=== PATIENT | male | born 1985 | race Caucasian/White ===

== ENCOUNTER 2020-01-17 21:55 | Inpatient (IN) | payer MEDICAID, SELFPAY ==
[~2020-01-17] VITALS: Ht 157.5 cm; Wt 55.8 kg
[2020-01-17] MEDS ORDERED: ACETAMINOPHEN 325 MG TAB PO ONE (22:45)
[2020-01-17] MEDS ORDERED: NS 1,770 ML in IV 1 EA IV ONE (22:45)
[2020-01-18 00:22] LABS: APPEARANCE, URINE CLEAR (CLEAR); BACTERIA, URINE AUTO NEGATIVE (NEGATIVE); BILIRUBIN, URINE AUTO NEGATIVE (NEGATIVE); BLOOD, URINE BLOOD 1+ (NEGATIVE); COLOR, URINE YELLOW (YELLOW); GLUCOSE, URINE (UA) AUTO NEGATIVE (NEGATIVE); KETONE, URINE AUTO NEGATIVE (NEGATIVE); LEUKOCYTE ESTERASE, URINE AUTO NEGATIVE (NEGATIVE); MUCUS, URINE SMALL (NEGATIVE); NITRITE, URINE AUTO NEGATIVE (NEGATIVE); PROTEIN, URINE AUTO NEGATIVE (NEGATIVE); RBC, URINE AUTO 1 /HPF (0-3); SPECIFIC GRAVITY URINE AUTO 1.013 (1.002-1.035); SQUAMOUS EPITHELIAL CELL UR AU 0 /HPF (0-6); WBC, URINE AUTO 2 /HPF (0-3)
[2020-01-18 00:25] LABS: BASO % 0.1 % (0.0-1.0); HEMATOCRIT 23.6 % (42.0-52.0); HEMOGLOBIN 7.8 g/dl (13.5-17.5); LYMPH # 1.3 10^3/uL (1.5-5.0); LYMPH % 5.5 % (24.0-44.0); MEAN CORPUSCULAR HEMOGLOBIN 24.8 pg (27.0-33.0); MEAN CORPUSCULAR HGB CONC 33.1 g/dl (32.0-36.5); MEAN CORPUSCULAR VOLUME 75.2 fl (80.0-96.0); MONO # 1.6 10^3/uL (0.0-0.8); MONO % 7.1 % (0.0-5.0); NEUTROPHILS # 19.7 10^3/uL (1.5-8.5); NEUTROPHILS % 85.9 % (36.0-66.0); PLATELET COUNT, AUTOMATED 294 10^3/uL (150-450); RED BLOOD COUNT 3.14 10^6/uL (4.30-6.10)
[2020-01-18 00:41] LABS: AMPHETAMINES LEVEL URINE NEGATIVE (NEGATIVE); BARBITURATES URINE NEGATIVE (NEGATIVE); BENZODIAZEPINES URINE NEGATIVE (NEGATIVE); CANNABINOIDS URINE NEGATIVE (NEGATIVE); COCAINE METABOLITE URINE NEGATIVE (NEGATIVE); METHADONE URINE NEGATIVE (NEGATIVE); OPIATES URINE POSITIVE (NEGATIVE); PHENCYCLIDINE URINE NEGATIVE (NEGATIVE)
[2020-01-18 00:48] LABS: ALBUMIN 2.4 GM/DL (3.2-5.2); ALT/SGPT 25 U/L (12-78); BILIRUBIN,DIRECT 0.1 MG/DL (0.0-0.2); BILIRUBIN,TOTAL 0.3 MG/DL (0.2-1.0); BLOOD UREA NITROGEN 16 MG/DL (7-18); CARBON DIOXIDE LEVEL 23 MEQ/L (21-32); CHLORIDE LEVEL 100 MEQ/L (98-107); CK-MB VALUE MASS < 1.0 NG/ML (<3.6); CPK CREATINE PHOSPHOKINASE 21 U/L (39-308); GLOMERULAR FILTRATION RATE > 60.0 (>60); GLUCOSE, FASTING 93 MG/DL (70-100); MB/CK RELATIVE INDEX 4.76 (< OR =4); POTASSIUM SERUM 4.2 MEQ/L (3.5-5.1); SODIUM LEVEL 131 MEQ/L (136-145); TOTAL PROTEIN 6.1 GM/DL (6.4-8.2); TROPONIN I < 0.02 NG/ML (< 0.10)
--- NOTE | 2020-01-18 00:53 | REPVR ---
PROCEDURE INFORMATION: Exam: CT Head Without Contrast Exam date and time: 01/18/2020 12:08 AM Age: 34 years old Clinical indication: Altered mental status/memory loss; Confusion or disorientation; Additional info: Altered mental status, febrile TECHNIQUE: Imaging protocol: Computed tomography of the head without contrast. Radiation optimization: All CT scans at this facility use at least one of these dose optimization techniques: automated exposure control; mA and/or kV adjustment per patient size (includes targeted exams where dose is matched to clinical indication); or iterative reconstruction. COMPARISON: No relevant prior studies available. FINDINGS: Brain: Normal. No hemorrhage. Unremarkable white matter. No mass effect. Cerebral ventricles: No ventriculomegaly. Bones/joints: Unremarkable. No acute fracture. Paranasal sinuses: Visualized sinuses are unremarkable. No fluid levels. Mastoid air cells: Visualized mastoid air cells are well aerated. Soft tissues: Unremarkable. IMPRESSION: No acute intracranial abnormality. Electronically signed by: Deng Judd On 01/18/2020 00:53:31 AM
--- NOTE | 2020-01-18 00:54 | REPVR ---
PROCEDURE INFORMATION: Exam: CT Cervical Spine Without Contrast Exam date and time: 01/18/2020 12:10 AM Age: 34 years old Clinical indication: Neck pain; Prior surgery; Surgery date: 6+ months; Surgery type: PT states infection; Additional info: Vertebral tenderness, no injury TECHNIQUE: Imaging protocol: Computed tomography images of the cervical spine without contrast. Radiation optimization: All CT scans at this facility use at least one of these dose optimization techniques: automated exposure control; mA and/or kV adjustment per patient size (includes targeted exams where dose is matched to clinical indication); or iterative reconstruction. COMPARISON: No relevant prior studies available. FINDINGS: Bones/joints: Straightened cervical curvature with C2-C6 posterior laminectomies decompressing the spinal canal. Osseous fusion across the facet joints, especially the right C3-C7. Discs/Spinal canal/Neural foramina: Multilevel severe foraminal stenosis. Soft tissues: Unremarkable. Lungs: Lung apices are normal. IMPRESSION: No acute abnormality. Electronically signed by: Deng Judd On 01/18/2020 00:54:33 AM
--- NOTE | 2020-01-18 00:58 | REPVR ---
PROCEDURE INFORMATION: Exam: XR Chest, 2 Views Exam date and time: 01/18/2020 12:35 AM Age: 34 years old Clinical indication: Other: Cough, febrile TECHNIQUE: Imaging protocol: XR of the chest Views: 2 views. COMPARISON: No relevant prior studies available. FINDINGS: Lungs: Subtle left lower lung suspected infiltrate. Pleural space: Unremarkable. No pleural effusion. No pneumothorax. Heart/Mediastinum: Unremarkable. No cardiomegaly. Bones/joints: Unremarkable. IMPRESSION: Subtle left lower lung suspected infiltrate. Electronically signed by: Deng Judd On 01/18/2020 00:58:02 AM
[2020-01-18] MEDS ORDERED: ISOVUE-370 76% 100ML VIAL As Ordered ONE (01:09)
[2020-01-18] MEDS ORDERED: PIPERACILLIN/TAZOBACTAM SOD 3.375 GM in D5W MINI-BAG PLUS 50 ML IV ONE (01:15)
[2020-01-18 01:37] LABS: ERYTHROCYTE SEDIMENTATION RATE 49 mm/hr (0-15)
--- NOTE | 2020-01-18 02:06 | REPVR ---
PROCEDURE INFORMATION: Exam: CT Abdomen And Pelvis With Contrast Exam date and time: 01/18/2020 1:05 AM Age: 34 years old Clinical indication: Abdominal pain; Other: Difffuse; Additional info: Diffuse abd tenderness, febrile, low hemoglobin TECHNIQUE: Imaging protocol: Computed tomography of the abdomen and pelvis with intravenous contrast. Radiation optimization: All CT scans at this facility use at least one of these dose optimization techniques: automated exposure control; mA and/or kV adjustment per patient size (includes targeted exams where dose is matched to clinical indication); or iterative reconstruction. Contrast material: ISO; Contrast volume: 100 ml; Contrast route: INTRAVENOUS (IV); COMPARISON: No relevant prior studies available. FINDINGS: Lungs: Multifocal areas of airspace consolidation in both lower lobes. Liver: The liver is enlarged measuring approximately 21 cm cranial caudally. No liver masses are seen. Gallbladder and bile ducts: Normal. No calcified stones. No ductal dilation. Pancreas: Normal. No ductal dilation. Spleen: Spleen is mildly enlarged at 12.6 cm. Adrenal glands: Normal. No mass. Kidneys and ureters: Normal. No hydronephrosis. Stomach and bowel: Mild intraluminal fluid and mucosal enhancement are noted in the small bowel. No wall thickening or other inflammatory changes. No bowel obstruction. The stomach and colon are unremarkable. Appendix: No evidence of appendicitis. Intraperitoneal space: Unremarkable. No free air. No significant fluid collection. Vasculature: Unremarkable. No abdominal aortic aneurysm. Lymph nodes: Unremarkable. No enlarged lymph nodes. Urinary bladder: Mild urinary bladder wall thickening. No bladder masses or calculi. Reproductive: Unremarkable as visualized. Bones/joints: There are degenerative changes in the spine and pelvis. Soft tissues: Unremarkable. IMPRESSION: 1. Multifocal pneumonia with airspace consolidation in the lower lobes. 2. Urinary bladder wall thickening suggesting cystitis. 3. Mild mucosal enhancement and intraluminal fluid in the small bowel is nonspecific but may indicate a viral enteritis. No obstruction. 4. Hepatosplenomegaly. Electronically signed by: Claus Barros On 01/18/2020 02:06:22 AM
[2020-01-18] MEDS ORDERED: AZITHROMYCIN INJ 500 MG, VIAL MATE ADAPTER 1 EACH in D5W 250 ML IV ONE (02:15)
[2020-01-18 02:35] LABS: MONO REFLEX EBV COMP NEGATIVE (NEGATIVE)
[2020-01-18] MEDS ORDERED: cefTRIAXone SOD 2 GM in D5W MINI-BAG PLUS 50 ML IV ONE (03:15)
[2020-01-18] MEDS ORDERED: IPRATROPIUM 0.5MG/ALBUTEROL 2.5MG INH SOL UD 3ML (DUONEB) INH PRN (05:30)
--- NOTE | 2020-01-18 05:38 | HPEPDOC ---
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 In the station he was found to be febrile to 103 and tachycardic x-rays brought to the hospital. In the hospital patient was initially confused which improved after IV fluids. He was febrile 102.5 with tachycardia and leukocytosis 23. Patient endorses feeling lousy for the past 1-2 weeks. Says he's been feeling warm at home with fevers chills and malaise for t he past 1 week but did not seek medical attention. Endorses a cough that is not productive of sputum. Has some mild shortness of breath it's been ongoing for the past 1 week. Endorses feeling very sweaty over the past few days. In the ED patient was started on sepsis protocol and was given Zosyn initially followed by ceftriaxone and azithromycin. Initial lactate was 1.0. In the ED patient was found to have a hemoglobin of 7.8. Bedside guaiac was negative. Patient denies any bleeding in stool or urine. Denies black stools. Patient endorses remote history of positive hepatitis C that has not been treated. Tells me he uses opiates most daily 1-2 bags which she injects. Last use was today. PAST MEDICAL HISTORY: Opiate abuse Anxiety PAST SURGICAL HISTORY: Laminectomy cervical spine 2019 SOCIAL HISTORY: Denies alcohol use Denies tobacco use Denies illicit drug use other than opiate abuse using 1-2 bags of heroin which she injects daily. FAMILY HISTORY: Denies any family history ALLERGIES: Please see below. REVIEW OF SYSTEMS: Constitutional: No sweating or weight loss Eyes: No eye pain or acute blurred vision HENT: No complaints of headache or sore throat Cadiovascular: No Chest pain or palpitations Pulm: Per HPI Gastrointestinal: No N/V, no abdominal pain. Genitourinary: No dysuria or hematuria Musculoskeletal: No back pain or joint pain Skin: No rash or jaundice Neurological: Feeling weak HOME MEDICATIONS: Please see below. PHYSICAL EXAMINATION: Constitutional: Awake and alert, in mild distress. Cooperative. Diaphoretic. ENT: Sclera are clear. Mucosa is moist. Respiratory: Lungs Rales at the lung bases bilaterally. No respiratory distress. No use of accessory muscles. On room air Cardiovascular: RRR S1 and S2 are normal, no murmur Gastrointestinal: Abdomen is soft, non distended, non tender, BS present. Musculoskeletal: No edema. No joint deformities. RUE 5/5, LUE 5/5, BLE 5/5 Neurologic: No focal neurological deficit. Mental Status: A&O x3, normal affect Skin: Warm, dry LABORATORY DATA: See below. IMAGING: Imaging reviewed. See chart. MICROBIOLOGY: Please see below. ASSESSMENT/PLAN 34M hx of opitate abuse, pulled over by police but found to be altered at station fever 103 and tachycardia brought into hospital. Meets SIRS criteria. Found to have multifocal pneumonia. Started on IVFs and azithromycin and ceftriaxone. Lactate 1.0. Hemoglobin found to be decreased at 7.8. Denies active bleeding. Admitted to medical unit for further management. # Sepsis: 2/2 multifocal PNA. Meets SIRS criteria. Tachycardia, fever, elevated WBC. Lactate initially 1.0. Trend. IVFs. IV Abx started. UA ok. Fu BCx. # Multi focal pneumonia: Seen on chest CT/CXR. Febrile, leukocytosis. IVFs. Ceftx & Azithro (qtc 438). incentive spirometry. Fu BCx. FuUrine strep Ag and Legionella, Sputum culture and RVP. # Microcytic anemia: hgb 7.8 on admit. Stool occult negative in ED. Fu Ferritin, TIBC, LDH, haptoglobin, TSH, retic count, coags. # Hyponatremia: NS IVF. Monitor, trend. # Opiate abuse: SW consult. UDS positive opiate. Monitor for withdrawals. # History Hep C: Fu hep panel. HIV. # DVT prophylaxis: Lovenox A [facility] Hospitalist Vital Signs Vital Signs Date Time Temp Pulse Resp B/P (MAP) Pulse Ox O2 Delivery O2 Flow Rate FiO2 01/18/20 04:51 96.6 80 16 110/68 (82) 100 01/18/20 02:13 Room Air Laboratory Data Labs 24H Laboratory Tests 2 01/17/20 22:49: Coronavirus (COVID-19)(PCR) NEGATIVE 01/17/20 23:07: Immature Granulocyte % (Auto) 1.4, Neutrophils (%) (Auto) 85.9H, Lymphocytes (%) (Auto) 5.5L, Monocytes (%) (Auto) 7.1H, Eosinophils (%) (Auto) 0.0, Basophils (%) (Auto) 0.1, Neutrophils # (Auto) 19.7H, Lymphocytes # (Auto) 1.3L, Monocytes # (Auto) 1.6H, Eosinophils # (Auto) 0.0, Basophils # (Auto) 0.0, Nucleated Red Blood Cells % (auto) 0.0, Erythrocyte Sedimentation Rate 49H, Urine Color YELLOW, Urine Appearance CLEAR, Urine pH 5.0, Urine Specific [place] 1.013, Urine Protein NEGATIVE, Urine Glucose (Auto)(UA) NEGATIVE, Urine Ketones (Auto) NEGATIVE, Urine Blood 1+H, Urine Nitrite NEGATIVE, Urine Bilirubin NEGATIVE, Urine Urobilinogen 2.0H, Urine Leukocyte Esterase (Auto) NEGATIVE, Urine WBC (Auto) 2, Urine RBC (Auto) 1, Urine Hyaline Casts (Auto) 3, Urine Bacteria (Auto) NEGATIVE, Urine Squamous Epithelial Cells 0, Urine Mucus (Auto) SMALL, Urine Sperm (Auto) , Anion Gap 8, Glomerular Filtration Rate > 60.0, Lactic Acid Level 1.0, Calcium Level 8.0L, Total Bilirubin 0.3, Direct Bilirubin 0.1, Aspartate Amino Transf (AST/SGOT) 27, Alanine Aminotransferase (ALT/SGPT) 25, Alkaline Phosphatase 107, Total Creatine Kinase 21L, Creatine Kinase MB < 1.0, Creatine Kinase MB Relative Index 4.76H, Troponin I < 0.02, C-Reactive Protein, Quantitative 11.30H, Total Protein 6.1L, Albumin 2.4L, Albumin/Globulin Ratio 0.6, Urine Opiates Screen POSITIVEH, Urine Methadone Screen NEGATIVE, Urine Barbiturates Screen NEGATIVE, Urine Phencyclidine Screen NEGATIVE, Urine Amphetamines Screen NEGATIVE, Urine Benzodiazepines Screen NEGATIVE, Urine Cocaine Metabolite Screen NEGATIVE, Urine Cannabinoids Screen NEGATIVE, Monoscreen NEGATIVE CBC/BMP Laboratory Tests 01/17/20 23:07 Microbiology Microbiology 01/17/20 Blood Culture, Received Pending 01/17/20 Blood Culture, Received Pending Home Medications No Active Prescriptions or Reported Meds Allergies Coded Allergies: No Known Allergies (Unverified , 01/17/20) A-FIB/CHADSVASC A-FIB History Current/History of A-Fib/PAF?: No Current PO Anticoag Therapy: No YOUSEF,ANDREA Wisdom MD Jan 18, 2020 05:38
[2020-01-18 05:55] LABS: BASO % 0.2 % (0.0-1.0); EOS % 0.1 % (0.0-3.0); HEMATOCRIT 25.4 % (42.0-52.0); HEMOGLOBIN 8.1 g/dl (13.5-17.5); LYMPH # 1.5 10^3/uL (1.5-5.0); LYMPH % 7.5 % (24.0-44.0); MEAN CORPUSCULAR HEMOGLOBIN 24.3 pg (27.0-33.0); MEAN CORPUSCULAR HGB CONC 31.9 g/dl (32.0-36.5); MEAN CORPUSCULAR VOLUME 76.3 fl (80.0-96.0); MONO # 1.5 10^3/uL (0.0-0.8); MONO % 7.5 % (0.0-5.0); NEUTROPHILS # 16.4 10^3/uL (1.5-8.5); NEUTROPHILS % 83.7 % (36.0-66.0); PLATELET COUNT, AUTOMATED 280 10^3/uL (150-450); RED BLOOD COUNT 3.33 10^6/uL (4.30-6.10); WHITE BLOOD COUNT 19.6 10^3/uL (4.0-10.0)
[2020-01-18 06:06] LABS: INR 1.34; PROTHROMBIN TIME 16.9 SECONDS (12.5-14.3)
[2020-01-18 06:20] VITALS: BP 112/65
[2020-01-18 06:33] LABS: ALBUMIN 2.3 GM/DL (3.2-5.2); ALT/SGPT 19 U/L (12-78); BILIRUBIN,TOTAL 0.3 MG/DL (0.2-1.0); BLOOD UREA NITROGEN 12 MG/DL (7-18); CALCIUM LEVEL 8.1 MG/DL (8.5-10.1); CARBON DIOXIDE LEVEL 26 MEQ/L (21-32); CHLORIDE LEVEL 107 MEQ/L (98-107); CREATININE FOR GFR 0.72 MG/DL (0.70-1.30); FERRITIN 272 NG/ML (26-388); GLOMERULAR FILTRATION RATE > 60.0 (>60); GLUCOSE, FASTING 110 MG/DL (70-100); IRON (FE) 15 UG/DL (65-175); LDH LACTATE DEHYDROGENASE 215 U/L (87-241); PERCENT SATURATION 8.2 % (19.7-50.0); POTASSIUM SERUM 3.7 MEQ/L (3.5-5.1); SODIUM LEVEL 139 MEQ/L (136-145); TOTAL IRON BINDING CAPACITY 183 UG/DL (250-450); TOTAL PROTEIN 5.9 GM/DL (6.4-8.2)
[2020-01-18] MEDS: NS 1,000 ML IV SCH ×2 (06:37→17:26)
[2020-01-18] MEDS: AZITHROMYCIN INJ 500 MG, VIAL MATE ADAPTER 1 EACH in D5W 250 ML IV SCH (06:37)
[2020-01-18 07:25] LABS: HEPATITIS B SURFACE ANTIGEN NEGATIVE (NEGATIVE)
[2020-01-18 07:52] LABS: HEPATITIS B CORE ANTIBODY IGM NEGATIVE (NEGATIVE)
[2020-01-18 07:54] LABS: HIV 1&2 SCREEN CENTAUR NEGATIVE (NEGATIVE)
[2020-01-18 07:55] LABS: HEPATITIS A ANTIBODY IGM NEGATIVE (NEGATIVE)
[2020-01-18 07:58] LABS: HEPATITIS C VIRUS ABY INDEX > 11.0 INDEX (<0.8)
[2020-01-18 08:00] VITALS: BP 101/65
[2020-01-18] MEDS: ENOXAPARIN 40MG/0.4ML SYRINGE (J1650 PER 10MG) SC SCH (08:40)
[2020-01-18 12:00] VITALS: BP 111/67
--- NOTE | 2020-01-18 14:02 | ECGEPIP ---
[facility] - ED Test Date: 2020-01-18 Pat Name: SASCHA MENA Department: Room: [place] [address] Gender: Male [employer]inding Machine Feeder: PAUL : [id number] Requested By: DELBERT Daniel PA-C Order Number: [id number] Reading MD: Nichol Bagley Measurements Intervals [place] Rate: 69 P: 38 WA: 141 QRS: 49 QRSD: 91 T: 29 QT: 436 QTc: 469 Interpretive Statements SINUS RHYTHM WITH SINUS ARRHYTHMIA PROLONGED QTC NO PRIOR Electronically Signed on 01-18-2020 14:02:00 EST by Nichol Bagley
--- NOTE | 2020-01-18 14:08 | IPNPDOC ---
Text Note Date of Service The patient was seen on 01/18/20. NOTE Subjective: Patient stated that he feels better today. He denied any fever, c hills, nausea, vomiting, diarrhea or dysuria Objective: GENERAL APPEARANCE: NAD HEENT: no scleral icterus, no JVD, EOMI CARDIOVASCULAR: S1S2 LUNGS: Mild rales bilaterally, diminished lung sounds ABDOMEN: soft & not tender w palpitation MUSCULOSKELETAL: no cyanosis, no swelling INTEGUMENT: no generalized palor NEUROLOGICAL: cranial nerve function from 2-12 intact intact, follows commands, speech not dysarthric Assessment and Plan Patient 34 years old male with past medical history of IV drug abuse presented to the hospital with sepsis secondary to multifocal pneumonia versus endo carditis Sepsis Secondary to multifocal pneumonia versus possible endocarditis Blood culture 1 set: Gram-positive cocci in chains MRSA screen Continue antibiotic therapy Await Echo IV fluid Pneumonia CT chest showed multifocal infiltrates bilaterally Multifocal Incentive spirometry Sputum culture Microcytic anemia Stool focal blood negative Iron deficiency versus thalassemia Will check peripheral smear Iron is low Iron supplementation Hyponatremia Resolved Opiate abuse SW consult History Hep C Untreated We will check viral load VS,Ynes, I+O VS, Ynes, I+O Laboratory Tests 01/17/20 23:07 01/18/20 05:43 Vital Signs Date Time Temp Pulse Resp B/P (MAP) Pulse Ox O2 Delivery O2 Flow Rate FiO2 01/18/20 12:00 98.1 85 22 111/67 (82) 99 Room Air I&O- Last 24 Hours up to 6 AM 01/18/20 06:00 Intake Total 1870 ml Balance 1870 ml LUDY AMOR DO Jan 18, 2020 14:08
[2020-01-18 16:00] VITALS: BP 108/60
[2020-01-18 20:00] VITALS: BP 102/63
[2020-01-18] MEDS: IRON POLYSAC (NIFEREX) 150 MG CAP PO SCH (20:51)
[2020-01-18 21:40] VITALS: BP 108/62
[2020-01-18] MEDS: ACETAMINOPHEN TAB 650MG DOSE (2X325MG) PO PRN (21:55)
[2020-01-19] VITALS (7 sets, daily range): BP systolic 92–116; BP diastolic 54–71
[2020-01-19] MEDS ORDERED: cloNIDine 0.1 MG TAB PO ONE (01:15)
[2020-01-19] MEDS: NS 1,000 ML IV SCH ×2 (03:15→15:26)
[2020-01-19] MEDS: cefTRIAXone SOD 2 GM in D5W MINI-BAG PLUS 50 ML IV SCH (04:08)
[2020-01-19] MEDS: AZITHROMYCIN INJ 500 MG, VIAL MATE ADAPTER 1 EACH in D5W 250 ML IV SCH (05:34)
[2020-01-19] MEDS: ACETAMINOPHEN TAB 650MG DOSE (2X325MG) PO PRN ×2 (05:54→20:50)
[2020-01-19] MEDS: IRON POLYSAC (NIFEREX) 150 MG CAP PO SCH ×2 (09:07→20:47)
[2020-01-19] MEDS: ENOXAPARIN 40MG/0.4ML SYRINGE (J1650 PER 10MG) SC SCH (09:07)
[2020-01-19 11:05] LABS: BASO % 0.3 % (0.0-1.0); EOS % 0.3 % (0.0-3.0); HEMATOCRIT 26.1 % (42.0-52.0); HEMOGLOBIN 8.3 g/dl (13.5-17.5); LYMPH # 1.6 10^3/uL (1.5-5.0); LYMPH % 11.3 % (24.0-44.0); MEAN CORPUSCULAR HEMOGLOBIN 24.3 pg (27.0-33.0); MEAN CORPUSCULAR HGB CONC 31.8 g/dl (32.0-36.5); MEAN CORPUSCULAR VOLUME 76.5 fl (80.0-96.0); MONO # 1.1 10^3/uL (0.0-0.8); MONO % 8.1 % (0.0-5.0); NEUTROPHILS % 79.1 % (36.0-66.0); PLATELET COUNT, AUTOMATED 332 10^3/uL (150-450); RED BLOOD COUNT 3.41 10^6/uL (4.30-6.10); WHITE BLOOD COUNT 13.9 10^3/uL (4.0-10.0)
[2020-01-19 11:33] LABS: BLOOD UREA NITROGEN 8 MG/DL (7-18); CALCIUM LEVEL 7.9 MG/DL (8.5-10.1); CARBON DIOXIDE LEVEL 23 MEQ/L (21-32); CHLORIDE LEVEL 112 MEQ/L (98-107); CREATININE FOR GFR 0.63 MG/DL (0.70-1.30); GLOMERULAR FILTRATION RATE > 60.0 (>60); GLUCOSE, FASTING 118 MG/DL (70-100); POTASSIUM SERUM 3.5 MEQ/L (3.5-5.1); SODIUM LEVEL 141 MEQ/L (136-145)
--- NOTE | 2020-01-19 13:48 | IPNPDOC ---
Text Note Date of Service The patient was seen on 01/19/20. NOTE Subjective: Patient complains of severe back pain in the neck and thoracic area. He denied fever or chills, chest pain or palpitations Objective: GENERAL APPEARANCE: NAD HEENT: no scleral icterus, no JVD, EOMI CARDIOVASCULAR: S1S2, mild systolic regurgitation LUNGS: Mild rales bilaterally, diminished lung sounds ABDOMEN: soft & not tender w palpitation MUSCULOSKELETAL: no cyanosis, no swelling of LE, area of tenderness along with neck and thoracic area of the spine INTEGUMENT: no generalized palor NEUROLOGICAL: cranial nerve function from 2-12 intact intact, follows commands, speech not dysarthric Assessment and Plan Patient 34 years old male with past medical history of IV drug abuse presented to the hospital with sepsis secondary to endocarditis Sepsis Secondary to multifocal pneumonia versus possible endocarditis Blood culture 1 set: Gram-positive cocci in chains, second set gram-positive cocci in clusters Added vancomycin Continue ceftriaxone and azithromycin MRSA screen positive I talked to Dr. Ge, patient was found to have 2 cm vegetations on the tricuspid valve Appreciate/agree with ID consult Back pain Patient did have history of spinal neck abscess There is concern for spinal abscess Will proceed with spine MRI Pneumonia Multifocal Incentive spirometry Sputum culture Microcytic anemia Stool focal blood negative Iron deficiency versus thalassemia Await peripheral smear result Iron is low Iron supplementation Hyponatremia Resolved Opiate abuse SW consult History Hep C Untreated We will check viral load VS,Fishbone, I+O VS, Fishbone, I+O Laboratory Tests 01/19/20 10:41 Vital Signs Date Time Temp Pulse Resp B/P (MAP) Pulse Ox O2 Delivery O2 Flow Rate FiO2 01/19/20 12:00 98.0 85 17 108/65 (79) 95 Room Air I&O- Last 24 Hours up to 6 AM 01/19/20 06:00 Intake Total 4560 ml Output Total 2350 ml Balance 2210 ml LUDY AMOR DO Jan 19, 2020 13:48
[2020-01-19] MEDS: LIDOCAINE 5% (LIDODERM) PATCH TD SCH (15:26)
[2020-01-19] MEDS: VANCOMYCIN HCL 1,000 MG, VIAL MATE ADAPTER 1 EACH in D5W 250 ML IV SCH ×2 (15:26→20:47)
[2020-01-19 16:08] LABS: EBV VIRAL CAPSID AG IgG 33.3 U/mL (0.0-17.9); EBV VIRAL CAPSID AG IgM <36.0 U/mL (0.0-35.9)
[2020-01-19] MEDS: **NOTE PATIENT COMMENT** MISC XX SCH (20:51)
[2020-01-19] MEDS: IBUPROFEN 400 MG TAB PO PRN (22:03)
[2020-01-20] VITALS: BP 100/61
[2020-01-20] MEDS: NS 1,000 ML IV SCH (03:45)
[2020-01-20 04:00] VITALS: BP 98/60
[2020-01-20] MEDS: cefTRIAXone SOD 2 GM in D5W MINI-BAG PLUS 50 ML IV SCH (04:59)
[2020-01-20] MEDS: AZITHROMYCIN INJ 500 MG, VIAL MATE ADAPTER 1 EACH in D5W 250 ML IV SCH (06:00)
[2020-01-20 06:09] LABS: BASO # 0.1 10^3/uL (0.0-0.2); BASO % 0.3 % (0.0-1.0); EOS # 0.1 10^3/uL (0.0-0.5); EOS % 0.3 % (0.0-3.0); HEMATOCRIT 25.7 % (42.0-52.0); HEMOGLOBIN 7.9 g/dl (13.5-17.5); LYMPH # 1.9 10^3/uL (1.5-5.0); LYMPH % 10.2 % (24.0-44.0); MEAN CORPUSCULAR HEMOGLOBIN 23.9 pg (27.0-33.0); MEAN CORPUSCULAR HGB CONC 30.7 g/dl (32.0-36.5); MEAN CORPUSCULAR VOLUME 77.6 fl (80.0-96.0); MONO # 1.4 10^3/uL (0.0-0.8); MONO % 7.8 % (0.0-5.0); NEUTROPHILS # 14.8 10^3/uL (1.5-8.5); NEUTROPHILS % 80.7 % (36.0-66.0); PLATELET COUNT, AUTOMATED 363 10^3/uL (150-450); RED BLOOD COUNT 3.31 10^6/uL (4.30-6.10); WHITE BLOOD COUNT 18.3 10^3/uL (4.0-10.0)
[2020-01-20] MEDS: VANCOMYCIN HCL 1,000 MG, VIAL MATE ADAPTER 1 EACH in D5W 250 ML IV SCH ×3 (06:24→21:31)
[2020-01-20 08:00] VITALS: BP 110/67
[2020-01-20] MEDS: LIDOCAINE 5% (LIDODERM) PATCH TD SCH (09:41)
[2020-01-20] MEDS: ENOXAPARIN 40MG/0.4ML SYRINGE (J1650 PER 10MG) SC SCH (09:41)
[2020-01-20] MEDS: IRON POLYSAC (NIFEREX) 150 MG CAP PO SCH ×2 (09:41→21:31)
[2020-01-20] MEDS ORDERED: KETOROLAC 30 MG/ML 1ML VIAL IV ONE (10:15)
--- NOTE | 2020-01-20 12:02 | IPNPDOC ---
Text Note Date of Service The patient was seen on 01/20/20. NOTE Subjective: Patient stated that the lidocaine patch helped with pain. He denied fever or chills, chest pain or palpitations Objective: GENERAL APPEARANCE: NAD HEENT: no scleral icterus, no JVD, EOMI CARDIOVASCULAR: S1S2, mild systolic regurgitation LUNGS: Mild rales bilaterally, diminished lung sounds ABDOMEN: soft & not tender w palpitation MUSCULOSKELETAL: no cyanosis, no swelling of LE, area of tenderness along with neck and thoracic area of the spine INTEGUMENT: no generalized palor NEUROLOGICAL: cranial nerve function from 2-12 intact intact, follows commands, speech not dysarthric Assessment and Plan Patient 34 years old male with past medical history of IV drug abuse presented to the hospital with sepsis secondary to endocarditis Sepsis Most likely secondary to endocarditis Blood culture 1 set: Gram-positive cocci in chains, second set gram-positive cocci in clusters Added vancomycin MRSA screen positive I talked to Dr. Ge, patient was found to have 2 cm vegetations on the tricuspid valve Appreciate/agree with ID consult Back pain Patient did have history of spinal neck abscess There is concern for spinal abscess Will proceed with spine MRI Pneumonia CT chest showed multifocal infiltrates bilaterally Multifocal Incentive spirometry Sputum culture Continue antibiotic therapy Microcytic anemia Stool focal blood negative Iron deficiency versus thalassemia Await peripheral smear result Iron is low Iron supplementation Hyponatremia Resolved Opiate abuse SW consult History Hep C Untreated We will check viral load VS,Fishbone, I+O VS, Fishbone, I+O Laboratory Tests 01/20/20 05:43 Vital Signs Date Time Temp Pulse Resp B/P (MAP) Pulse Ox O2 Delivery O2 Flow Rate FiO2 01/20/20 08:00 98.3 90 19 110/67 (81) 99 Room Air I&O- Last 24 Hours up to 6 AM 01/20/20 06:00 Intake Total 3020 ml Output Total 3425 ml Balance -405 ml LUDY AMOR DO Jan 20, 2020 12:02
--- NOTE | 2020-01-20 13:24 | REPVR ---
PROCEDURE INFORMATION: Exam: MR Thoracic Spine Without and With Contrast Exam date and time: 01/20/2020 12:31 PM Age: 34 years old Clinical indication: Condition or disease; Other: Spinal abscess; Prior surgery; Surgery date: 6+ months TECHNIQUE: Imaging protocol: Multiplanar magnetic resonance images of the thoracic spine without and with intravenous contrast. Contrast material: PROHANCE; Contrast volume: 11 ml; Contrast route: INTRAVENOUS (IV); COMPARISON: No relevant prior studies available. FINDINGS: There is maintenance of the normal thoracic kyphosis. No spondylolisthesis or compression fractures. There are early inflammatory changes at the T6-7 level predominantly involving the anterior inferior endplate of T6 with marrow edema, T1 effacement, and contrast enhancement. There is mild edema within the anterior T6-7 disc space, and T2 hyperintense, contrast enhancing phlegmon within the prevertebral space from T6 through T7. No evidence of epidural or intraspinal abscess or abnormal intraspinal contrast enhancement within constraints of moderate motion artifact. Within constraints of motion, thoracic spinal cord signal intensity is grossly within normal limits. There is no moderate or severe thoracic spinal canal stenosis or neural foraminal narrowing. Multifocal pulmonary opacities again noted. IMPRESSION: Motion degraded study. Findings suspicious for early discitis-osteomyelitis at T6-7 with mild prevertebral inflammation. No epidural abscess no significant thoracic spinal canal stenosis. Electronically signed by: Ha Godinez On 01/20/2020 13:24:15 PM
--- NOTE | 2020-01-20 13:27 | REPVR ---
PROCEDURE INFORMATION: Exam: MR Lumbar Spine Without and With Contrast. Exam date and time: 01/20/2020 12:39 PM Age: 34 years old Clinical indication: Condition or disease; Other: Spinal abscess TECHNIQUE: Imaging protocol: Multiplanar magnetic resonance images of the lumbar spine without and with intravenous contrast. Contrast material: PROHANCE; Contrast volume: 11 ml; Contrast route: INTRAVENOUS (IV); COMPARISON: No relevant prior studies available. FINDINGS: There is maintenance of the normal lumbar lordosis. No spondylolisthesis or compression fractures. No evidence of lumbar spine discitis or osteomyelitis. There is relative marrow T1 and T2 hypointensity throughout the imaged skeleton. At L4-L5, circumferential disc bulge and a small central disc protrusion are present with mild spinal canal narrowing. No moderate or severe lumbar spinal canal stenosis. Multilevel lower lumbar facet arthrosis. IMPRESSION: No evidence of lumbar spine discitis-osteomyelitis. No moderate or severe stenosis. Relative decreased signal intensity throughout the imaged skeleton, which can be seen with anemia or other myeloproliferative processes. Electronically signed by: Ha Godinez On 01/20/2020 13:27:35 PM
--- NOTE | 2020-01-20 13:50 | REPVR ---
PROCEDURE INFORMATION: Exam: MR Cervical Spine Without and With Contrast Exam date and time: 01/20/2020 12:31 PM Age: 34 years old Clinical indication: Condition or disease; Other: Spinal abscess TECHNIQUE: Imaging protocol: Multiplanar magnetic resonance images of the cervical spine without and with intravenous contrast. Contrast material: PROHANCE; Contrast volume: 11 ml; Contrast route: INTRAVENOUS (IV); COMPARISON: CT Spine,cervical w/o contrast 01/18/2020 12:13 AM FINDINGS: Vertebrae: Patient is status post posterior decompression from C2-C6, please correlate with surgical history. Spinal cord: Normal signal. No cord compression. C2-C3: No significant disc disease. No significant spinal stenosis. C3-C4: No significant disc disease. No significant spinal stenosis. C4-C5: No significant disc disease. No significant spinal stenosis. C5-C6: No significant disc disease. No significant spinal stenosis. C6-C7: No significant disc disease. No significant spinal stenosis. C7-T1: No significant disc disease. No significant spinal stenosis. IMPRESSION: Patient is status post posterior decompression from C2-C6, please correlate with surgical history. Electronically signed by: Jordan Strange On 01/20/2020 13:49:56 PM
[2020-01-20] MEDS ORDERED: SLF 3 ML SYR IV PRN (15:30)
[2020-01-20 16:00] VITALS: BP 123/65
[2020-01-20 20:00] VITALS: BP 123/70
[2020-01-20] MEDS: SLF 3 ML SYR IV SCH (21:32)
[2020-01-20] MEDS: ACETAMINOPHEN TAB 650MG DOSE (2X325MG) PO PRN (21:32)
[2020-01-20] MEDS: **NOTE PATIENT COMMENT** MISC XX SCH (23:50)
[2020-01-21] VITALS (10 sets, daily range): BP systolic 110–129; BP diastolic 60–82
[2020-01-21] MEDS ORDERED: RAMELTEON 8 MG TAB (ROZEREM) PO ONE ×2 (01:15→21:00)
[2020-01-21] MEDS ORDERED: VANCOMYCIN HCL 1,000 MG, VIAL MATE ADAPTER 1 EACH in D5W 250 ML IV SCH ×2 (04:00→11:00)
[2020-01-21] MEDS: ACETAMINOPHEN TAB 650MG DOSE (2X325MG) PO PRN (04:22)
[2020-01-21] MEDS: cefTRIAXone SOD 2 GM in D5W MINI-BAG PLUS 50 ML IV SCH (05:46)
[2020-01-21] MEDS: AZITHROMYCIN INJ 500 MG, VIAL MATE ADAPTER 1 EACH in D5W 250 ML IV SCH (06:32)
[2020-01-21] MEDS: SLF 3 ML SYR IV SCH ×3 (06:32→21:04)
[2020-01-21 06:48] LABS: BASO # 0.1 10^3/uL (0.0-0.2); BASO % 0.4 % (0.0-1.0); EOS # 0.1 10^3/uL (0.0-0.5); EOS % 0.7 % (0.0-3.0); HEMATOCRIT 22.5 % (42.0-52.0); HEMOGLOBIN 7.2 g/dl (13.5-17.5); LYMPH # 1.8 10^3/uL (1.5-5.0); LYMPH % 13.7 % (24.0-44.0); MEAN CORPUSCULAR HEMOGLOBIN 24.5 pg (27.0-33.0); MEAN CORPUSCULAR VOLUME 76.5 fl (80.0-96.0); MONO # 1.2 10^3/uL (0.0-0.8); MONO % 9.3 % (0.0-5.0); NEUTROPHILS % 75.2 % (36.0-66.0); PLATELET COUNT, AUTOMATED 429 10^3/uL (150-450); RED BLOOD COUNT 2.94 10^6/uL (4.30-6.10); WHITE BLOOD COUNT 13.3 10^3/uL (4.0-10.0)
[2020-01-21 07:11] LABS: MAGNESIUM LEVEL 2.1 MG/DL (1.8-2.4)
[2020-01-21 08:51] LABS: ALBUMIN 1.9 GM/DL (3.2-5.2); ALT/SGPT 25 U/L (12-78); BILIRUBIN,TOTAL 0.1 MG/DL (0.2-1.0); BLOOD UREA NITROGEN 6 MG/DL (7-18); CALCIUM LEVEL 7.9 MG/DL (8.5-10.1); CARBON DIOXIDE LEVEL 23 MEQ/L (21-32); CHLORIDE LEVEL 113 MEQ/L (98-107); CREATININE FOR GFR 0.62 MG/DL (0.70-1.30); GLOMERULAR FILTRATION RATE > 60.0 (>60); GLUCOSE, FASTING 93 MG/DL (70-100); POTASSIUM SERUM 3.4 MEQ/L (3.5-5.1); SODIUM LEVEL 142 MEQ/L (136-145); TOTAL PROTEIN 5.7 GM/DL (6.4-8.2)
[2020-01-21] MEDS: IRON POLYSAC (NIFEREX) 150 MG CAP PO SCH ×2 (08:53→21:03)
[2020-01-21] MEDS: ENOXAPARIN 40MG/0.4ML SYRINGE (J1650 PER 10MG) SC SCH (08:54)
[2020-01-21] MEDS: LIDOCAINE 5% (LIDODERM) PATCH TD SCH (08:54)
--- NOTE | 2020-01-21 12:49 | ECHO ---
DATE OF PROCEDURE: 01/18/2020 Age: 34 Gender: Male REFERRING PROVIDER: Pernell Gomes DO REASON FOR STUDY: Sepsis. 2D MEASUREMENTS: IVS 1.1 cm LV 3.7 cm LVPW 1.2 cm LA 2.6 cm Aorta 3.5 cm IVC 1.4 cm DOPPLER MEASUREMENT Peak velocity across the aortic valve 1.4 m/s Peak velocity across the LVOT 1.1 m/s Mitral E 0.84 Mitral A 0.60 with a ratio of 1.4 Maximum tricuspid valve velocity 2.6 m/s 2D COMMENTS: 1. Normal left ventricular size, wall thickness. Left ventricular systolic function appeared to be normal, estimated at 55% to 60%. 2. Normal left atrium. Normal right atrium and right ventricle. 3. The atrial septum appeared to be normal without evidence of defect or shunt. 4. Normal aortic root. Trace pericardial effusion noted. No evidence of cardiac tamponade. 5. The aortic valve and the mitral valve appeared to be normal. The tricuspid valve has an echogenic structure on it that may be related to a vegetation, measuring 2.5 x 2.7 cm in its largest dimensions. The pulmonic valve appeared to be normal in limited views. The proximal pulmonary artery branches were not well visualized. 6. The inferior vena cava was normal in size, central venous pressure is most likely normal. 7. Doppler detects mild tricuspid regurgitation. The calculated pulmonary artery systolic pressure varies between 30 to 40 mmHg. IMPRESSION: 1. Normal global left ventricular systolic and diastolic function. 2. Mild tricuspid regurgitation with mild pulmonary hypertension. 3. Echogenic structure noted on the tricuspid valve most likely represents vegetations. The patient might benefit from a transesophageal echocardiogram for further evaluation of the cardiac valves. KEVNI
--- NOTE | 2020-01-21 13:17 | IPNPDOC ---
Text Note Date of Service The patient was seen on 01/21/20. NOTE Subjective: No any acute events overnight. He denied fever or chills, chest pain or palpitations Objective: GENERAL APPEARANCE: NAD HEENT: no scleral icterus, no JVD, EOMI CARDIOVASCULAR: S1S2, mild systolic regurgitation LUNGS: Mild rales bilaterally, diminished lung sounds ABDOMEN: soft & not tender w palpitation MUSCULOSKELETAL: no cyanosis, no swelling of LE, area of tenderness along with neck and thoracic area of the spine INTEGUMENT: no generalized palor NEUROLOGICAL: cranial nerve function from 2-12 intact intact, follows commands, speech not dysarthric Assessment and Plan Patient 34 years old male with past medical history of IV drug abuse presented to the hospital with sepsis due to endocarditis Sepsis Secondary to endocarditis Blood culture positive for Streptococcus mitis and Staphylococcus epidermidis Added vancomycin MRSA screen positive Echo showed The tricuspid valve has an echogenic structure on it that may be related to a vegetation, measuring 2.5 x 2.7 cm in its largest dimensions. The pulmonic valve appeared siva normal in limited views. The proximal pulmonary artery branches were not well visualized. Appreciate/agree with ID consult Back pain Patient did have history of spinal neck abscess MRI spine showed of T-6/T-7 possible early diskitis. Continue ceftriaxone IV Pneumonia Multifocal Incentive spirometry Sputum culture Antibiotic therapy Microcytic anemia Stool focal blood negative Iron deficiency versus thalassemia Await peripheral smear result Iron is low Iron supplementation Hemoglobin today 7.2, in light of endocarditis I will give him 1 unit of blood Hyponatremia Resolved Opiate abuse SW consult History Hep C Untreated We will check viral load VS,Fishbone, I+O VS, Fishbone, I+O Laboratory Tests 01/21/20 06:26 Vital Signs Date Time Temp Pulse Resp B/P (MAP) Pulse Ox O2 Delivery O2 Flow Rate FiO2 01/21/20 08:00 98.9 87 17 118/82 (94) 98 Room Air I&O- Last 24 Hours up to 6 AM 01/21/20 06:00 Intake Total 2400 ml Output Total 1250 ml Balance 1150 ml LUDY AMOR DO Jan 21, 2020 13:17
[2020-01-21] MEDS ORDERED: LevoFLOXacin 500 MG TABLET PO SCH (13:30)
[2020-01-21] MEDS ORDERED: cefTRIAXone SOD 2 GM in D5W MINI-BAG PLUS 50 ML IV SCH (14:00)
[2020-01-21] MEDS ORDERED: LIDOCAINE 1% MDV 20ML VIAL As Ordered ONE (15:46)
--- NOTE | 2020-01-21 16:02 | REP ---
INDICATION: Pna. COMPARISON: Chest x-ray 01/18/2020 TECHNIQUE: Noncontrast chest CT with coronal and sagittal reconstructions. FINDINGS: There infiltrates in the lateral basal segment of the left lower lobe in the posterior basal segment of the right lower lobe minor linear atelectatic change in the lateral basal segment right lower lobe. Some patchy infiltrate or atelectasis in the medial segment of the right middle lobe the anterior lung base also noted. Other patchy focus is seen in the medial segment of the right middle lobe more superiorly near the minor fissure and another in the lateral segment of the right middle lobe. The upper lobes are unremarkable. No pleural thickening,calcified pleural plaque or effusion. Heart not enlarged no aortic aneurysm. There is trace pericardial fluid or thickening. No pathologic sized mediastinal or hilar adenopathy no axillary or supraclavicular mass. Bone windows show the sternum, manubrium, clavicles, AC joints, scapula, humeral heads and ribs grossly intact. The spine shows anterior partial fusion of the T9-T10 disc space. The disc space and vertebral body heights are intact without destructive lesion. Some Schmorl's nodes are suggested. Ribs intact. The upper abdomen show no hiatal hernia. Solid organs seen in part were unremarkable IMPRESSION: 1. Bilateral lower lobe above infiltrates with fairly dense consolidation lateral basal segment left lower lobe, posterior basal segment right lower lobe with some patchy infiltrates in the lateral basal segment right lower lobe and right middle lobe. No effusion or other infiltrates. No pleural effusion or other acute finding in the lungs. 2. Heart mediastinal contours are unremarkable. 3. The bones show no acute finding by CT. <Electronically signed by Filippo Gupta > 01/21/20 [id number]
[2020-01-21] MEDS: IBUPROFEN 400 MG TAB PO PRN (17:20)
--- NOTE | 2020-01-21 17:37 | REP ---
PROCEDURE NAME: MIDLINE INSERTION W/ SITERITE CLINICAL INFORMATION: intermediate ab therapy. COMPARISON: None. PROCEDURE DESCRIPTION: The procedure was performed by REUBEN Enciso, under the direct supervision of Dr. Frazier. The risks and benefits of the procedure were explained to the patient and an informed consent was obtained both verbally and written. Directly prior to the start of the procedure a formal time-out was completed in the procedure room. The left cephalic vein was localized using ultrasound guidance. The skin was prepped and draped in sterile fashion. One mL of 1% lidocaine 10 mg/mL was used as a local anesthetic. Using ultrasound guidance the left cephalic vein was cannulated, and a 0.018 guidewire was inserted. The needle was removed and a 4.5 Yemeni dilator and peel-away sheath was inserted over the guidewire. A 4.5 Yemeni single lumen catheter was cut to a length of 12 cm. The dilator was removed and the catheter was inserted over the guidewire. The peel-away sheath was removed and the catheter was flushed with heparinized saline as per hospital protocol. The catheter was affixed to the skin and a sterile dressing was applied. The patient tolerated the procedure well and there were no immediate complications. CONCLUSION: Mid line insertion into the left cephalic vein under ultrasound guidance. <Electronically signed by Brigida Ryan > 01/21/20 170 <Electronically signed by Osmar Frazier > 01/21/20 [id number]
[2020-01-21] MEDS: SODIUM CHLORIDE 0.9% INJ 10 ML SYR IV SCH (18:00)
[2020-01-21] MEDS: RAMELTEON 8 MG TAB (ROZEREM) PO SCH (21:04)
[2020-01-21] MEDS: **NOTE PATIENT COMMENT** MISC XX SCH (21:04)
[2020-01-22] VITALS: BP 123/68
[2020-01-22 04:00] VITALS: BP 146/76
[2020-01-22] MEDS: SLF 3 ML SYR IV SCH ×3 (05:32→20:26)
[2020-01-22] MEDS: SODIUM CHLORIDE 0.9% INJ 10 ML SYR IV SCH ×2 (05:47→17:47)
[2020-01-22 05:48] LABS: BASO % 0.2 % (0.0-1.0); EOS # 0.1 10^3/uL (0.0-0.5); EOS % 0.6 % (0.0-3.0); HEMATOCRIT 25.1 % (42.0-52.0); HEMOGLOBIN 8.1 g/dl (13.5-17.5); LYMPH % 12.3 % (24.0-44.0); MEAN CORPUSCULAR HGB CONC 32.3 g/dl (32.0-36.5); MEAN CORPUSCULAR VOLUME 77.5 fl (80.0-96.0); MONO # 0.9 10^3/uL (0.0-0.8); MONO % 5.6 % (0.0-5.0); NEUTROPHILS # 13.2 10^3/uL (1.5-8.5); NEUTROPHILS % 80.5 % (36.0-66.0); PLATELET COUNT, AUTOMATED 418 10^3/uL (150-450); RED BLOOD COUNT 3.24 10^6/uL (4.30-6.10); WHITE BLOOD COUNT 16.4 10^3/uL (4.0-10.0)
[2020-01-22 06:24] LABS: ALT/SGPT 30 U/L (12-78); BILIRUBIN,TOTAL 0.2 MG/DL (0.2-1.0); BLOOD UREA NITROGEN 8 MG/DL (7-18); CARBON DIOXIDE LEVEL 26 MEQ/L (21-32); CHLORIDE LEVEL 109 MEQ/L (98-107); CREATININE FOR GFR 0.64 MG/DL (0.70-1.30); GLOMERULAR FILTRATION RATE > 60.0 (>60); GLUCOSE, FASTING 91 MG/DL (70-100); MAGNESIUM LEVEL 2.1 MG/DL (1.8-2.4); POTASSIUM SERUM 3.9 MEQ/L (3.5-5.1); SODIUM LEVEL 141 MEQ/L (136-145); TOTAL PROTEIN 5.9 GM/DL (6.4-8.2)
--- NOTE | 2020-01-22 07:56 | CR ---
DATE OF CONSULTATION: 01/21/2020 REASON FOR CONSULTATION: I was asked to consult for evaluation of the tricuspid valve endocarditis with positive blood cultures for Streptococcus midis. HISTORY OF PRESENT ILLNESS: Tiburcio is a 34-year-old gentleman who was stopped by the police for taillights that were not working. He was acting confused at the police station and had a fever of 103. The patient was brought into the hospital. He was febrile, tachycardic with a white count of 23,000. He was started on antibiotics. Chest x-ray showed multifocal pneumonia. He was initially treated for presumptive pneumonia with ceftriaxone and Zithromax. He has a history of IV drug use with heroin, most recently relapses about two months ago. The patient had echocardiogram done by Dr. Tian that showed an echogenic structure on the tricuspid valve measuring 2.5 x 2.7 cm, consistent with vegetation. He has mild tricuspid regurgitation. The patient states he has mild shortness of breath with some pleuritic chest pain, midsternal area. He has had fevers up to 103 but these have improved. He is mildly short of breath. He has no nausea, vomiting or diarrhea. The patient has severe back pain. He had extensive cervical surgery in [place] and was not given any pain medication due to history of drug addiction and was using just anti-inflammatories. He removed to the area to be with his brother who is a retired and as he was in a lot of pain, he relapsed using IV heroin. PAST MEDICAL HISTORY: 1. History of IV drug use, currently is using heroin. 2. Anxiety disorder. 3. Chronic back pain. PAST SURGICAL HISTORY: Laminectomy, cervical spine done in 2019 in [place]. SOCIAL HISTORY: He lives with his brother who is a retired and lives in the area after his detention as he got and wants to be close to his family. He denies alcohol use or tobacco use. REVIEW OF SYSTEMS: He has no weight loss or sweating, no headache, no nausea, vomiting or diarrhea. He has mild pleuritic chest pain, mild shortness of breath, no nausea, vomiting, abdominal pain, dysuria, hematuria. He has severe back pain, no rashes. ALLERGIES: No known drug allergies. MEDICATIONS: * Ceftriaxone from 01/17 to 01/20. * He then received vancomycin from 01/18 to 01/20 which is discontinued. * He also received Zithromax from 01/17 to 01/20, total of four days. LABORATORY DATA: White count on admission was 23,000, today was 13.3. Hemoglobin 7.2, hematocrit 22.5, platelets 429, 75% neutrophils, 13% lymphocytes, 9% monocytes. ESR 49. Sodium 142, potassium 3.4, chloride 113, bicarb 23, BUN 6, creatinine 0.62, glucose 93, calcium 7.9, magnesium 2.1. AST 21, ALT 25, alk phos 74, total protein 5.7, albumin 1.9. TSH 1.5. CRP 11.3. Blood cultures on 01/16 were positive for Streptococcus mitis, 2/2 and 1/ had also Staph epidermidis which is a contaminant. Respiratory panel was negative on 01/16 and blood cultures on 01/17, two sets were no growth. IMAGING: Chest x-ray showed several left lower lung infiltrates. CT, abdomen and pelvis showed multifocal pneumonia with air space consolidation. Urinary bladder suggests cystitis. Hepatosplenomegaly. MRI, cervical, lumbar and thoracic spine is concerning for discitis at T6-T7 with mild prevertebral inflammation. Lumbar spine does not show any evidence of discitis. Cervical spine shows decompression from C2 through C6. PHYSICAL EXAMINATION: Sick looking gentleman in no acute distress. T max 100.2, currently 97.9, pulse 79, pulse 97, respirations 18, blood pressure 121/77, O2 sat 99% on room air. Heart: Normal S1, S2, tachycardic, systolic ejection murmur, II/. Lungs: Diminished breath sounds at the bases but no crackles or rales or rhonchi. Soft, nontender, no hepatosplenomegaly. Back: No lumbar tenderness. She had cervical spine tenderness from C4 to upper thoracic spine. A very large incision which is well healed, normal range of motion of the neck. Extremities: No clubbing, cyanosis or edema, no calf tenderness. No rash and peripheral stigmata suggesting endocarditis. Pupils equal and reactive, anicteric, pale conjunctiva, no petechiae. Neuro exam: Patient alert and oriented x3. Upper and lower extremity strength is currently normal. Drug screen was positive for opiates, vancomycin trough 24.1. 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 Cultures were positive for Streptococcus mitis which is pansensitive. The patient has improved with IV Rocephin. He is currently stable from a cardiac standpoint. In spite of a large vegetation, he does not need surgical intervention or transesophageal echocardiogram as this would not change the treatment course. PLAN: 1. Discontinue IV vancomycin. He does not need MRSA coverage even though he is MRSA colonized. 2. Discontinue IV Zithromax. The patient does not have atypical pneumonia. He has septic emboli to the lungs from Strep mitis. 3. Restart IV ceftriaxone 2 gm q.24 hours. The patient will need at least four weeks of IV antibiotic from first negative culture which was on January 17 so he will need at least antibiotics until February 14. 4. We will continue to monitor his back pain and his neurologic exam as he has evidence of possible early discitis of the thoracic spine. 5. No need for transesophageal echocardiogram at this time. Midline was ordered. The case has been discussed with Dr. Gomes. KEVIN
[2020-01-22 08:00] VITALS: BP 137/85
[2020-01-22] MEDS ORDERED: BISACODYL 5 MG TAB PO SCH (09:00)
[2020-01-22] MEDS: ENOXAPARIN 40MG/0.4ML SYRINGE (J1650 PER 10MG) SC SCH (09:03)
[2020-01-22] MEDS: LIDOCAINE 5% (LIDODERM) PATCH TD SCH (09:03)
[2020-01-22] MEDS: cefTRIAXone SOD 2 GM in D5W MINI-BAG PLUS 50 ML IV SCH (09:03)
[2020-01-22] MEDS: IRON POLYSAC (NIFEREX) 150 MG CAP PO SCH ×2 (09:03→20:25)
--- NOTE | 2020-01-22 09:13 | CR ---
DATE OF CONSULTATION: 01/22/2020 HISTORY OF PRESENT ILLNESS: I was asked by Dr. Gomes to see Mr. Singletary, who is a 34-year-old man who was admitted with sepsis and turned out to have tricuspid valve endocarditis. He has been initially treated with vancomycin; but now when the microbiology revealed that the etiology is due to Streptococcus mitis, the choice of antibiotics was narrowed to cephalosporin only. He had a transthoracic echocardiogram that was interpreted by my colleague, Dr. Tian, and I reviewed the study independently. It revealed large vegetation on the tricuspid valve that measures in its largest diameter close to 3 cm. There was relatively mild insufficiency of the valve. The remaining cardiac valves did not have any visualized infection. The patient tells me that he is feeling a little better. He no longer has fevers and chills, but still has generalized aching. He does admit that he was using IV drugs, and he says that even though he has a history of IV drug abuse, he was clean for several months; but then, he gave in because of ongoing pain after cervical surgery. PAST MEDICAL HISTORY: Positive only for surgery on the cervical spine. He says that he had probably a laminectomy from C4 to T1. He complains about ongoing severe pain. Otherwise, he denies any other medical illness. FAMILY HISTORY: Both parents are healthy. He does not recall any family history of any particular cardiac conditions. SOCIAL HISTORY: The patient is single. No children. He currently does not work, but for most of his life worked in a [employer] business. He is originally from [place], but he lives currently in [place] and came to [facility] to live with his brother after he lost his job. REVIEW OF SYSTEMS: He reports feeling sick about 10-14 days. He says that he fell down and has had more pain, but otherwise denies any prior fever, chills, nausea, or vomiting. His weight has been stable. He reports that he has been using IV heroin now for probably a few months. He is a little vague on the description. The rest of the review of systems as per HPI and otherwise negative. PHYSICAL EXAMINATION: VITAL SIGNS: Blood pressure 146/76, heart rate has been typically from 80s to 100 and teens. He has been afebrile in the last day. Saturation 94% on room air. Weight was recorded 55.4 kg as of two days ago. GENERAL: He is alert, oriented, appropriate, and pleasant. Reasonably good historian. NECK: I do not appreciate any problems with his jugular venous pressure (JVP). No carotid bruit. LUNGS: Clear. Good air movement. Somewhat diminished over both bases, but not much. HEART: Exam reveals regular rhythm. There is a murmur best heard over the lower sternum maybe 2/6 in intensity holosystolic in nature. I do not appreciate any rub. I do not appreciate any gallop. ABDOMEN: Soft. No obvious hepatosplenomegaly. No guarding. Bowel sounds are positive. EXTREMITIES: Free of edema. Peripheral pulses are good quality. His fingers and toes are without any evidence of metastatic infection. There are no splinter hemorrhages or Janeway lesions and no Osler nodes. NEUROLOGIC: He is intact. LABORATORY DATA: Basic metabolic panel is normal. Liver function tests are normal. Albumin is now down to 2.0. CBC with WBC count of 16.4, hemoglobin 8.1, hematocrit 25, platelet count 418,000. His tox screen on admission was positive for opiates as would be expected and the rest was negative. There was no EKG on the chart. CT of the chest revealed pneumonia, but no cavitations. ASSESSMENT AND PLAN: Mr. Singletary is a 34-year-old man with history of intravenous (IV) drug abuse of mostly heroin who presents with tricuspid valve endocarditis. The clinical picture is consistent, with the exception of no evidence for metastatic lung infection. The transthoracic echocardiogram was clearly diagnostic. At this point, I do not see a role for transesophageal echocardiogram; even though it would provide better visual of the valve, it would not change the management and consequently, I do not believe we need to expose the patient to this procedure. With the history of IV drug abuse and with right-sided endocarditis, generally conservative management is the only treatment that is considered. Even though the vegetation is quite large, unfortunately if the valve gets replacement, the risk of re-infection with IV drug use is extremely high, and prosthetic endocarditis is frequently lethal. As far as the choices of antibiotics are concerned, I will leave it solely to Dr. Frey, but I do agree that relatively narrow spectrum antibiotics is certainly more favorable than vancomycin. I am going to order a 12-lead ECG to have it documented in the chart. Right-sided endocarditis rarely affects the conduction system, but I do recommend that he is on telemetry at least another day or two. Otherwise after he recovers, which would typically involve at least eight weeks of antibiotics, then we will have to reevaluate him to see how much damage is left on the valve. As far as the mode of administration, I will leave it to the primary team and infectious disease (ID). Obviously, I think there is a concern about discharging a patient who has a history of drug use home with a central catheter. KEVIN
[2020-01-22] MEDS: SODIUM CHLORIDE 0.9% INJ 10 ML SYR IV PRN (10:40)
--- NOTE | 2020-01-22 11:16 | IPNPDOC ---
Text Note Date of Service The patient was seen on 01/22/20. NOTE Subjective: No any acute events overnight. Patient continues to complain of neck pain. He stated its moderate to severe. Objective: GENERAL APPEARANCE: NAD HEENT: no scleral icterus, no JVD, EOMI CARDIOVASCULAR: S1S2, mild systolic regurgitation LUNGS: Mild rales bilaterally, diminished lung sounds ABDOMEN: soft & not tender w palpitation MUSCULOSKELETAL: no cyanosis, no swelling of LE, area of tenderness along with neck and thoracic area of the spine INTEGUMENT: no generalized palor NEUROLOGICAL: cranial nerve function from 2-12 intact intact, follows commands, speech not dysarthric Assessment and Plan Patient 34 years old male with past medical history of IV drug abuse presented to the hospital with sepsis due to endocarditis Sepsis Secondary to endocarditis Blood culture positive for Streptococcus mitis and Staphylococcus epidermidis Continue ceftriaxone IV MRSA screen positive Echo showed The tricuspid valve has an echogenic structure on it that may be related to a vegetation, measuring 2.5 x 2.7 cm in its largest dimensions. The pulmonic valve appeared siva normal in limited views. The proximal pulmonary artery branches were not well visualized. Follow ID recommendation. Most like a patient will need 4 weeks of antibiotic therapy Back pain Patient did have history of spinal neck abscess MRI spine showed of T-6/T-7 possible early diskitis. Continue ceftriaxone IV I talked to pain specialist, he recommended gabapentin 100 mg 3 times a day for next 3 days. If there is not relief we will increase her dose to 300 3 times a day Pneumonia Patient was presented with cough. CT showed Bilateral lower lobe above infiltrates with fairly dense consolidation lateral basal segment left lower lobe, posterior basal segment right lower lobe with some patchy infiltrates in the lateral basal segment right lower lobe and right m iddle lobe. No effusion or other infiltrates. No pleural effusion or other acute finding in the lungs. Multifocal Incentive spirometry Sputum culture Antibiotic therapy Microcytic anemia Stool for occult blood negative Iron deficiency versus thalassemia peripheral smear result: Microcytic hypochromic anemia with anisocytosis Iron is low Iron supplementation Patient received 1 unit of blood transfusion on 01/21/20 Will proceed with hemoglobin electrophoresis to rule out thalassemia Hyponatremia Resolved Opiate abuse SW consult History Hep C Untreated We will check viral load VS,Fishbone, I+O VS, Fishbone, I+O Laboratory Tests 01/22/20 05:40 Vital Signs Date Time Temp Pulse Resp B/P (MAP) Pulse Ox O2 Delivery O2 Flow Rate FiO2 01/22/20 08:00 98.8 77 18 137/85 (102) 98 Room Air I&O- Last 24 Hours up to 6 AM 01/22/20 06:00 Intake Total 2190 ml Output Total 1200 ml Balance 990 ml LUDY AMOR DO Jan 22, 2020 11:16
[2020-01-22] MEDS: GABAPENTIN 100 MG CAP PO SCH ×3 (11:45→20:25)
[2020-01-22 12:00] VITALS: BP 117/68
[2020-01-22 16:05] LABS: C REACTIVE PROTEIN QUANTITATIV 5.98 MG/DL (0.00-0.30)
[2020-01-22] MEDS: IBUPROFEN 400 MG TAB PO PRN (17:53)
--- NOTE | 2020-01-22 18:02 | ECGEPIP ---
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
[2020-01-22 20:00] VITALS: BP 121/76
[2020-01-22] MEDS: SENOKOT S TAB PO SCH (20:25)
[2020-01-22] MEDS: CYCLOBENZAPRINE 10MG TABLET PO SCH (20:25)
[2020-01-22] MEDS: CelecoXIB (CeleBREX) 100 MG CAP PO SCH (20:25)
[2020-01-22] MEDS: **NOTE PATIENT COMMENT** MISC XX SCH (20:26)
[2020-01-22] MEDS: RAMELTEON 8 MG TAB (ROZEREM) PO SCH (20:26)
[2020-01-23] VITALS: BP 100/66
[2020-01-23 04:00] VITALS: BP 102/60
[2020-01-23] MEDS: SLF 3 ML SYR IV SCH ×2 (06:00→13:46)
[2020-01-23] MEDS: SODIUM CHLORIDE 0.9% INJ 10 ML SYR IV SCH ×2 (06:04→16:28)
[2020-01-23 06:30] LABS: BASO % 0.3 % (0.0-1.0); EOS # 0.2 10^3/uL (0.0-0.5); EOS % 1.1 % (0.0-3.0); HEMATOCRIT 27.6 % (42.0-52.0); HEMOGLOBIN 8.6 g/dl (13.5-17.5); LYMPH # 1.9 10^3/uL (1.5-5.0); LYMPH % 13.9 % (24.0-44.0); MEAN CORPUSCULAR HEMOGLOBIN 24.6 pg (27.0-33.0); MEAN CORPUSCULAR HGB CONC 31.2 g/dl (32.0-36.5); MEAN CORPUSCULAR VOLUME 79.1 fl (80.0-96.0); MONO % 7.8 % (0.0-5.0); NEUTROPHILS # 10.1 10^3/uL (1.5-8.5); NEUTROPHILS % 76.1 % (36.0-66.0); PLATELET COUNT, AUTOMATED 401 10^3/uL (150-450); RED BLOOD COUNT 3.49 10^6/uL (4.30-6.10); WHITE BLOOD COUNT 13.3 10^3/uL (4.0-10.0)
[2020-01-23 07:01] LABS: ALBUMIN 2.2 GM/DL (3.2-5.2); ALT/SGPT 49 U/L (12-78); BILIRUBIN,TOTAL 0.2 MG/DL (0.2-1.0); BLOOD UREA NITROGEN 14 MG/DL (7-18); CALCIUM LEVEL 8.6 MG/DL (8.5-10.1); CARBON DIOXIDE LEVEL 28 MEQ/L (21-32); CHLORIDE LEVEL 111 MEQ/L (98-107); CREATININE FOR GFR 0.58 MG/DL (0.70-1.30); GLOMERULAR FILTRATION RATE > 60.0 (>60); GLUCOSE, FASTING 87 MG/DL (70-100); MAGNESIUM LEVEL 2.4 MG/DL (1.8-2.4); POTASSIUM SERUM 4.4 MEQ/L (3.5-5.1); SODIUM LEVEL 144 MEQ/L (136-145)
[2020-01-23 08:00] VITALS: BP 108/59
--- NOTE | 2020-01-23 08:44 | IPN ---
DATE: 01/22/2020 SUBJECTIVE: Tiburcio seems to be doing a little better today. He still complains of severe pain. Mostly the pain is not in the neck but thoracic and lumbar area which he relates to his fall. He was wondering whether he could get a muscle relaxant and some anti-inflammatories. He used to take Voltaren in the past which helped him. He denies any nausea, vomiting or diarrhea. He was just started on Gabapentin 100 mg p.o. three times daily which he states had not helped in the past. The patient states he has a mild cough. Shortness of breath has improved. PHYSICAL EXAMINATION: VITAL SIGNS: He has been afebrile today. Temperature is 98.7, pulse 93, respirations 18, blood pressure 117/68. O2 sat 96% on room air. LABORATORY STUDIES: White count 16.4, hemoglobin 8.1, hematocrit 25.1, platelets 418, 80% neutrophils, 12% lymphocytes, 5% monocytes. Sodium 141, potassium 3.9, chloride 109, bicarbonate 26, BUN 8, creatinine 0.64, glucose 91, calcium 8, magnesium 2.1, bilirubin 0.2, AST 26, ALT 30, alkaline phosphatase 80, CRP 5.98, down from 11.3. Blood cultures from 01/16 two sets positive for streptococcus mitis, one out of two staph epidermitis, 01/17 positive for blood cultures were negative x72 hours. Respiratory panel negative. IMPRESSION: 1. Tricuspid valve endocarditis with streptococcus mitis and a very large vegetation measuring up to 2.7 cm. He was seen in consultation with who did not recommend getting a transesophageal echocardiogram at this time as his management is going to be just conservative. He has complications metastatic emboli to the lungs and possibly T6-7 Discitis thoracic spine. 2. Back pain with evidence of T-6/T-7 possible early diskitis. The patient does not have point tenderness there but has paraspinal diffuse tenderness. This will treated with IV Rocephin as well as this is most likely the same pathogen. He needs 6 weeks of IV antibiotics There is no surgical intervention needed at this time from his back standpoint. 3. History of epidural abscess of the cervical spine - at this point this is no evidence of infection at that site. 4. History of intravenous drug use, heroin use for pain management - The patient is interested in following up at [facility] and possibly being on Methadone. 5. History of hepatitis C not treated in the past. The patient will follow up as an outpatient. HIV negative, hepatitis B surface antigen and B core IgM negative. He received dose of Havrix and Booster of engerix PLAN: Continue with IV Rocephin. The patients anticipated plan would be to treat him 02/28 for a total of 6 weeks due to the fact that he has tricuspid valve endocarditis with septic emboli and thoracic spondylodiskitis. MTDD
[2020-01-23] MEDS: LIDOCAINE 5% (LIDODERM) PATCH TD SCH (10:00)
[2020-01-23] MEDS: cefTRIAXone SOD 2 GM in D5W MINI-BAG PLUS 50 ML IV SCH (10:01)
[2020-01-23] MEDS: CelecoXIB (CeleBREX) 100 MG CAP PO SCH ×2 (10:01→20:37)
[2020-01-23] MEDS: GABAPENTIN 100 MG CAP PO SCH ×3 (10:01→20:37)
[2020-01-23] MEDS: IRON POLYSAC (NIFEREX) 150 MG CAP PO SCH ×2 (10:01→20:37)
[2020-01-23] MEDS: ENOXAPARIN 40MG/0.4ML SYRINGE (J1650 PER 10MG) SC SCH (10:02)
[2020-01-23] MEDS: CYCLOBENZAPRINE 10MG TABLET PO SCH ×3 (10:02→20:37)
--- NOTE | 2020-01-23 11:09 | IPNPDOC ---
Text Note Date of Service The patient was seen on 01/23/20. NOTE Subjective: No any acute events overnight. Patient stated that his back pain better today Objective: GENERAL APPEARANCE: NAD HEENT: no scleral icterus, no JVD, EOMI CARDIOVASCULAR: S1S2, mild systolic regurgitation LUNGS: Mild rales bilaterally, diminished lung sounds ABDOMEN: soft & not tender w palpitation MUSCULOSKELETAL: no cyanosis, no swelling of LE, area of tenderness along with neck and thoracic area of the spine INTEGUMENT: no generalized palor NEUROLOGICAL: cranial nerve function from 2-12 intact intact, follows commands, speech not dysarthric Assessment and Plan Patient 34 years old male with past medical history of IV drug abuse presented to the hospital with sepsis due to endocarditis Sepsis Secondary to endocarditis Blood culture positive for Streptococcus mitis and Staphylococcus epidermidis Continue ceftriaxone IV MRSA screen positive Echo showed The tricuspid valve has an echogenic structure on it that may be related to a vegetation, measuring 2.5 x 2.7 cm in its largest dimensions. The pulmonic valve appeared siva normal in limited views. The proximal pulmonary artery branches were not well visualized. Follow ID recommendation. Most like a patient will need 4 weeks of antibiotic therapy Acute bacterial endocarditis See above Back pain Patient did have history of spinal neck abscess MRI spine showed of T-6/T-7 possible early diskitis. Continue ceftriaxone IV I talked to pain specialist, he recommended gabapentin 100 mg 3 times a day for next 3 days. If there is not relief we will increase her dose to 300 3 times a day Discitis of T6-T7 Secondary to bacteremia and endocarditis Continue ceftriaxone IV for 6 weeks Pneumonia Patient was presented with cough. CT showed Bilateral lower lobe above infiltrates with fairly dense consolidation lateral basal segment left lower lobe, posterior basal segment right lower lobe with some patchy infiltrates in the lateral basal segment right lower lobe and right middle lobe. No effusion or other infiltrates. No pleural effusion or other acute finding in the lungs. Multifocal Incentive spirometry Sputum culture Antibiotic therapy Microcytic anemia Stool for occult blood negative Iron deficiency versus thalassemia peripheral smear result: Microcytic hypochromic anemia with anisocytosis Iron is low Iron supplementation Patient received 1 unit of blood transfusion on 01/21/20 Will proceed with hemoglobin electrophoresis to rule out thalassemia Hyponatremia Resolved Opiate abuse SW consult History Hep C Untreated We will check viral load VS,Fishbone, I+O VS, Fishbone, I+O Laboratory Tests 01/23/20 06:11 01/23/20 06:12 Vital Signs Date Time Temp Pulse Resp B/P (MAP) Pulse Ox O2 Delivery O2 Flow Rate FiO2 01/23/20 08:00 97.2 75 18 108/59 (75) 99 Room Air I&O- Last 24 Hours up to 6 AM 01/23/20 06:00 Intake Total 1610 ml Output Total 850 ml Balance 760 ml LUDY AMOR DO Jan 23, 2020 11:09
[2020-01-23 12:00] VITALS: BP 116/66
[2020-01-23 16:00] VITALS: BP 116/66
[2020-01-23 19:24] VITALS: BP 105/69
[2020-01-23] MEDS: SENOKOT S TAB PO SCH (20:37)
[2020-01-23] MEDS: ACETAMINOPHEN TAB 650MG DOSE (2X325MG) PO PRN (20:37)
[2020-01-23] MEDS: **NOTE PATIENT COMMENT** MISC XX SCH (20:40)
[2020-01-23] MEDS: RAMELTEON 8 MG TAB (ROZEREM) PO SCH (21:00)
[2020-01-24] VITALS: BP 113/70
[2020-01-24 04:00] VITALS: BP 109/77
[2020-01-24 06:09] LABS: HEPATITIS A IgG TOTAL Negative (Negative); HEPATITIS B CORE ANTIBODY IGG Negative (Negative)
[2020-01-24 06:12] LABS: BASO % 0.3 % (0.0-1.0); EOS # 0.2 10^3/uL (0.0-0.5); EOS % 1.5 % (0.0-3.0); HEMATOCRIT 28.9 % (42.0-52.0); HEMOGLOBIN 8.9 g/dl (13.5-17.5); LYMPH # 1.7 10^3/uL (1.5-5.0); LYMPH % 14.9 % (24.0-44.0); MEAN CORPUSCULAR HEMOGLOBIN 24.4 pg (27.0-33.0); MEAN CORPUSCULAR HGB CONC 30.8 g/dl (32.0-36.5); MEAN CORPUSCULAR VOLUME 79.2 fl (80.0-96.0); MONO # 1.1 10^3/uL (0.0-0.8); MONO % 9.1 % (0.0-5.0); NEUTROPHILS # 8.4 10^3/uL (1.5-8.5); NEUTROPHILS % 73.2 % (36.0-66.0); PLATELET COUNT, AUTOMATED 419 10^3/uL (150-450); RED BLOOD COUNT 3.65 10^6/uL (4.30-6.10); WHITE BLOOD COUNT 11.5 10^3/uL (4.0-10.0)
[2020-01-24] MEDS: SODIUM CHLORIDE 0.9% INJ 10 ML SYR IV SCH ×2 (06:25→16:41)
[2020-01-24 06:34] LABS: ALBUMIN 2.2 GM/DL (3.2-5.2); ALT/SGPT 63 U/L (12-78); BILIRUBIN,TOTAL 0.2 MG/DL (0.2-1.0); BLOOD UREA NITROGEN 19 MG/DL (7-18); CALCIUM LEVEL 8.3 MG/DL (8.5-10.1); CARBON DIOXIDE LEVEL 26 MEQ/L (21-32); CHLORIDE LEVEL 110 MEQ/L (98-107); CREATININE FOR GFR 0.66 MG/DL (0.70-1.30); GLOMERULAR FILTRATION RATE > 60.0 (>60); GLUCOSE, FASTING 88 MG/DL (70-100); MAGNESIUM LEVEL 2.3 MG/DL (1.8-2.4); POTASSIUM SERUM 4.5 MEQ/L (3.5-5.1); SODIUM LEVEL 143 MEQ/L (136-145); TOTAL PROTEIN 6.1 GM/DL (6.4-8.2)
[2020-01-24 08:00] VITALS: BP 116/68
[2020-01-24] MEDS: cefTRIAXone SOD 2 GM in D5W MINI-BAG PLUS 50 ML IV SCH (08:39)
[2020-01-24] MEDS: IRON POLYSAC (NIFEREX) 150 MG CAP PO SCH ×2 (08:40→20:29)
[2020-01-24] MEDS: CYCLOBENZAPRINE 10MG TABLET PO SCH ×2 (08:40→16:00)
[2020-01-24] MEDS: GABAPENTIN 100 MG CAP PO SCH ×3 (08:40→20:29)
[2020-01-24] MEDS: ENOXAPARIN 40MG/0.4ML SYRINGE (J1650 PER 10MG) SC SCH (08:40)
[2020-01-24] MEDS: CelecoXIB (CeleBREX) 100 MG CAP PO SCH ×2 (08:45→20:29)
[2020-01-24] MEDS: LIDOCAINE 5% (LIDODERM) PATCH TD SCH (08:45)
[2020-01-24 20:00] VITALS: BP 109/58
[2020-01-24] MEDS: SENOKOT S TAB PO SCH (20:29)
[2020-01-24] MEDS: ACETAMINOPHEN TAB 650MG DOSE (2X325MG) PO PRN (20:29)
[2020-01-24] MEDS: **NOTE PATIENT COMMENT** MISC XX SCH (20:31)
[2020-01-24] MEDS: RAMELTEON 8 MG TAB (ROZEREM) PO SCH (20:31)
[2020-01-25 04:00] VITALS: BP 98/62
[2020-01-25] MEDS: SODIUM CHLORIDE 0.9% INJ 10 ML SYR IV SCH ×2 (05:59→17:30)
[2020-01-25 06:07] LABS: BASO # 0.1 10^3/uL (0.0-0.2); BASO % 0.6 % (0.0-1.0); EOS # 0.2 10^3/uL (0.0-0.5); EOS % 1.4 % (0.0-3.0); HEMATOCRIT 29.8 % (42.0-52.0); HEMOGLOBIN 9.1 g/dl (13.5-17.5); LYMPH # 2.2 10^3/uL (1.5-5.0); LYMPH % 17.6 % (24.0-44.0); MEAN CORPUSCULAR HEMOGLOBIN 24.4 pg (27.0-33.0); MEAN CORPUSCULAR HGB CONC 30.5 g/dl (32.0-36.5); MEAN CORPUSCULAR VOLUME 79.9 fl (80.0-96.0); MONO # 1.1 10^3/uL (0.0-0.8); MONO % 8.8 % (0.0-5.0); NEUTROPHILS # 8.9 10^3/uL (1.5-8.5); NEUTROPHILS % 70.8 % (36.0-66.0); PLATELET COUNT, AUTOMATED 383 10^3/uL (150-450); RED BLOOD COUNT 3.73 10^6/uL (4.30-6.10); WHITE BLOOD COUNT 12.6 10^3/uL (4.0-10.0)
[2020-01-25 06:35] LABS: ALBUMIN 2.2 GM/DL (3.2-5.2); ALT/SGPT 60 U/L (12-78); BILIRUBIN,TOTAL 0.1 MG/DL (0.2-1.0); BLOOD UREA NITROGEN 16 MG/DL (7-18); C REACTIVE PROTEIN QUANTITATIV 6.21 MG/DL (0.00-0.30); CALCIUM LEVEL 8.5 MG/DL (8.5-10.1); CARBON DIOXIDE LEVEL 26 MEQ/L (21-32); CHLORIDE LEVEL 110 MEQ/L (98-107); CREATININE FOR GFR 0.66 MG/DL (0.70-1.30); GLOMERULAR FILTRATION RATE > 60.0 (>60); GLUCOSE, FASTING 92 MG/DL (70-100); MAGNESIUM LEVEL 2.2 MG/DL (1.8-2.4); POTASSIUM SERUM 4.2 MEQ/L (3.5-5.1); SODIUM LEVEL 141 MEQ/L (136-145); TOTAL PROTEIN 6.7 GM/DL (6.4-8.2)
[2020-01-25 08:00] VITALS: BP 105/74
[2020-01-25] MEDS ORDERED: [UNRECOGNIZED DRUG - OTHER] IM ONE (08:00)
[2020-01-25] MEDS ORDERED: HEPATITIS A VACCINE IM ONE (08:00)
[2020-01-25] MEDS ORDERED: HEPATITIS B VACCINE 10 MCG/0.5 ML SYRINGE (FOR ALL OTHER PTS) IM ONE (09:00)
[2020-01-25] MEDS: IRON POLYSAC (NIFEREX) 150 MG CAP PO SCH ×2 (09:22→20:09)
[2020-01-25] MEDS: GABAPENTIN 100 MG CAP PO SCH ×2 (09:22→20:09)
[2020-01-25] MEDS: ENOXAPARIN 40MG/0.4ML SYRINGE (J1650 PER 10MG) SC SCH (09:22)
[2020-01-25] MEDS: LIDOCAINE 5% (LIDODERM) PATCH TD SCH (09:23)
[2020-01-25] MEDS: cefTRIAXone SOD 2 GM in D5W MINI-BAG PLUS 50 ML IV SCH (10:00)
[2020-01-25] MEDS: CelecoXIB (CeleBREX) 100 MG CAP PO SCH ×2 (10:51→20:11)
--- NOTE | 2020-01-25 11:48 | IPN ---
DATE: 01/24/2020 SUBJECTIVE: Tiburcio seems to be doing better. He complains of being too sleepy during the day due to Gabapentin and Flexeril, and would like only to take the medication to help him sleep at night and not make him too groggy. He denies any shortness of breath. He has a mild cough productive of whitish phlegm. He has diffuse back pain; not one specific spot. He feels all the muscles are hurting. PHYSICAL EXAMINATION: GENERAL: A healthy looking young man in no acute distress. VITALS: Temperature 99.1, pulse 101, respirations 17, blood pressure 116/68, O2 sat 97% on room air. HEART: Normal S1, S2, tachycardic. No murmurs appreciated. LUNGS: Clear. No wheezes, rales or rhonchi. ABDOMEN: Soft, nontender. No hepatosplenomegaly. BACK: No CVA tenderness. No lumbosacral tenderness at one spot. He has normal range of motion of the spine except for limited cervical spine motion, where he has an extensive surgical scar from C2 down to T1 from previous epidural abscess drainage surgery. LABORATORY DATA: White count 11.1, hemoglobin 8.9, hematocrit 28.9, platelets 419,000, neutrophils 73%, lymphocytes 15%, monocytes 9%. Sodium 143, potassium 4.5, chloride 110, bicarb 26, BUN 19, creatinine 0.6, glucose 88, calcium 8.3. Magnesium 2.3. AST 41, ALT 63, alkaline phosphatase 92. CRP 5.98. Total protein 6.1, albumin 2.2. Hepatitis A antibody negative. Hepatitis B surface antibody quantitative 5.7, probably patient has been vaccinated and has low antibody titer. Hep B core IgG negative. Hep B surface antigen negative. Hep C RNA positive. MRSA screen positive. HIV negative. IMPRESSION: 1. 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 Ceftriaxone. Fever has resolved. White count is markedly improved. Patient to continue I.V. Ceftriaxone for 4 to 6 weeks. A minimum of 4 weeks for the tricuspid valve endocarditis and then possibly oral antibiotics to finish a 6 week course for discitis. 2. T6, T7 discitis: On I.V. Ceftriaxone, there is no specific point tenderness at this point at the thoracic spine, but patient has diffuse back pain. 3. Septic emboli to the lungs: On I.V. Rocephin. 4. Chronic Hepatitis C: Patient is not immune to Hepatitis A and therefore will receive a vaccine. He probably was vaccinated for Hepatitis B, but has a low titer and therefore will receive a second dose. 5. Chronic back pain: Will adjust his medication Flexeril to be used as needed as he does not like to feel sleepy and Gabapentin 100 mg during the day and 200 mg at bedtime. PLAN: Patient to go to subacute rehab for continued I.V. antibiotics. If he is discharged, he needs to follow-up at the infectious disease clinic in two weeks after discharge. KEVIN
[2020-01-25 12:00] VITALS: BP 112/63
[2020-01-25 16:00] VITALS: BP 148/62
[2020-01-25 17:08] LABS: HEMOGLOBIN A 97.7 % (96.4-98.8); HEMOGLOBIN A2 2.3 % (1.8-3.2); HGB SOLUBILITY Negative (Negative)
[2020-01-25] MEDS: ACETAMINOPHEN TAB 650MG DOSE (2X325MG) PO PRN (17:29)
[2020-01-25] MEDS: CYCLOBENZAPRINE 10MG TABLET PO PRN (17:29)
[2020-01-25] MEDS: **NOTE PATIENT COMMENT** MISC XX SCH (20:05)
[2020-01-25] MEDS: SENOKOT S TAB PO SCH (20:09)
[2020-01-25] MEDS: RAMELTEON 8 MG TAB (ROZEREM) PO SCH (20:12)
[2020-01-26 04:24] VITALS: BP 102/64
[2020-01-26] MEDS: SODIUM CHLORIDE 0.9% INJ 10 ML SYR IV SCH ×2 (04:28→18:07)
[2020-01-26 06:50] LABS: BASO % 0.4 % (0.0-1.0); EOS # 0.2 10^3/uL (0.0-0.5); EOS % 1.9 % (0.0-3.0); HEMATOCRIT 28.1 % (42.0-52.0); HEMOGLOBIN 8.7 g/dl (13.5-17.5); LYMPH # 2.2 10^3/uL (1.5-5.0); LYMPH % 19.6 % (24.0-44.0); MEAN CORPUSCULAR HEMOGLOBIN 24.9 pg (27.0-33.0); MEAN CORPUSCULAR VOLUME 80.3 fl (80.0-96.0); MONO # 0.9 10^3/uL (0.0-0.8); MONO % 8.2 % (0.0-5.0); NEUTROPHILS # 7.8 10^3/uL (1.5-8.5); NEUTROPHILS % 69.4 % (36.0-66.0); PLATELET COUNT, AUTOMATED 344 10^3/uL (150-450); WHITE BLOOD COUNT 11.2 10^3/uL (4.0-10.0)
[2020-01-26 07:07] LABS: ALBUMIN 2.3 GM/DL (3.2-5.2); ALT/SGPT 64 U/L (12-78); BILIRUBIN,TOTAL 0.2 MG/DL (0.2-1.0); BLOOD UREA NITROGEN 18 MG/DL (7-18); CALCIUM LEVEL 8.7 MG/DL (8.5-10.1); CARBON DIOXIDE LEVEL 28 MEQ/L (21-32); CHLORIDE LEVEL 110 MEQ/L (98-107); CREATININE FOR GFR 0.61 MG/DL (0.70-1.30); GLOMERULAR FILTRATION RATE > 60.0 (>60); GLUCOSE, FASTING 94 MG/DL (70-100); MAGNESIUM LEVEL 2.4 MG/DL (1.8-2.4); POTASSIUM SERUM 4.3 MEQ/L (3.5-5.1); SODIUM LEVEL 143 MEQ/L (136-145); TOTAL PROTEIN 6.7 GM/DL (6.4-8.2)
[2020-01-26 08:00] VITALS: BP 102/57
[2020-01-26] MEDS: CelecoXIB (CeleBREX) 100 MG CAP PO SCH ×2 (10:01→20:31)
[2020-01-26] MEDS: cefTRIAXone SOD 2 GM in D5W MINI-BAG PLUS 50 ML IV SCH (10:01)
[2020-01-26] MEDS: IRON POLYSAC (NIFEREX) 150 MG CAP PO SCH ×2 (10:01→20:26)
[2020-01-26] MEDS: ENOXAPARIN 40MG/0.4ML SYRINGE (J1650 PER 10MG) SC SCH (10:02)
[2020-01-26] MEDS: GABAPENTIN 100 MG CAP PO SCH ×2 (10:02→20:26)
[2020-01-26] MEDS: LIDOCAINE 5% (LIDODERM) PATCH TD SCH (11:47)
[2020-01-26 12:00] VITALS: BP 113/65
[2020-01-26 16:00] VITALS: BP 124/63
[2020-01-26] MEDS: CYCLOBENZAPRINE 10MG TABLET PO PRN (16:44)
[2020-01-26 20:00] VITALS: BP 120/65
[2020-01-26] MEDS: SENOKOT S TAB PO SCH (20:26)
[2020-01-26] MEDS: **NOTE PATIENT COMMENT** MISC XX SCH (20:33)
[2020-01-26] MEDS: RAMELTEON 8 MG TAB (ROZEREM) PO SCH ×2 (20:33→23:46)
[2020-01-26] MEDS: ACETAMINOPHEN TAB 650MG DOSE (2X325MG) PO PRN (20:33)
[2020-01-27 04:00] VITALS: BP 107/68
[2020-01-27] MEDS: SODIUM CHLORIDE 0.9% INJ 10 ML SYR IV SCH ×2 (05:20→17:34)
[2020-01-27 07:19] LABS: ALBUMIN 2.5 GM/DL (3.2-5.2); ALT/SGPT 63 U/L (12-78); BILIRUBIN,TOTAL 0.1 MG/DL (0.2-1.0); BLOOD UREA NITROGEN 20 MG/DL (7-18); CALCIUM LEVEL 8.8 MG/DL (8.5-10.1); CARBON DIOXIDE LEVEL 28 MEQ/L (21-32); CHLORIDE LEVEL 109 MEQ/L (98-107); CREATININE FOR GFR 0.64 MG/DL (0.70-1.30); GLOMERULAR FILTRATION RATE > 60.0 (>60); GLUCOSE, FASTING 86 MG/DL (70-100); POTASSIUM SERUM 4.5 MEQ/L (3.5-5.1); SODIUM LEVEL 142 MEQ/L (136-145); TOTAL PROTEIN 6.7 GM/DL (6.4-8.2)
[2020-01-27 07:50] VITALS: BP 109/80
[2020-01-27] MEDS: cefTRIAXone SOD 2 GM in D5W MINI-BAG PLUS 50 ML IV SCH (09:19)
[2020-01-27] MEDS: LIDOCAINE 5% (LIDODERM) PATCH TD SCH (09:21)
[2020-01-27] MEDS: GABAPENTIN 100 MG CAP PO SCH ×2 (09:21→19:46)
[2020-01-27] MEDS: ENOXAPARIN 40MG/0.4ML SYRINGE (J1650 PER 10MG) SC SCH (09:21)
[2020-01-27] MEDS: CelecoXIB (CeleBREX) 100 MG CAP PO SCH ×2 (09:21→19:46)
[2020-01-27] MEDS: IRON POLYSAC (NIFEREX) 150 MG CAP PO SCH ×2 (09:21→19:47)
[2020-01-27] MEDS: ACETAMINOPHEN TAB 650MG DOSE (2X325MG) PO PRN (10:35)
[2020-01-27 11:42] VITALS: BP 116/58
[2020-01-27 16:00] VITALS: BP 123/59
[2020-01-27] MEDS: CYCLOBENZAPRINE 10MG TABLET PO PRN (19:46)
[2020-01-27] MEDS: SENOKOT S TAB PO SCH (19:47)
[2020-01-27] MEDS: **NOTE PATIENT COMMENT** MISC XX SCH (19:47)
[2020-01-27] MEDS: RAMELTEON 8 MG TAB (ROZEREM) PO SCH (23:17)
[2020-01-28] MEDS: SODIUM CHLORIDE 0.9% INJ 10 ML SYR IV SCH ×2 (03:49→18:29)
[2020-01-28 04:00] VITALS: BP 121/64
[2020-01-28] MEDS: ACETAMINOPHEN TAB 650MG DOSE (2X325MG) PO PRN (06:49)
[2020-01-28] MEDS: CYCLOBENZAPRINE 10MG TABLET PO PRN ×2 (06:49→17:04)
[2020-01-28 08:00] VITALS: BP 114/57
[2020-01-28 08:10] LABS: ALBUMIN 2.7 GM/DL (3.2-5.2); ALT/SGPT 58 U/L (12-78); BILIRUBIN,TOTAL 0.1 MG/DL (0.2-1.0); BLOOD UREA NITROGEN 15 MG/DL (7-18); CALCIUM LEVEL 8.8 MG/DL (8.5-10.1); CARBON DIOXIDE LEVEL 28 MEQ/L (21-32); CHLORIDE LEVEL 108 MEQ/L (98-107); CREATININE FOR GFR 0.72 MG/DL (0.70-1.30); GLOMERULAR FILTRATION RATE > 60.0 (>60); GLUCOSE, FASTING 90 MG/DL (70-100); POTASSIUM SERUM 4.9 MEQ/L (3.5-5.1); SODIUM LEVEL 142 MEQ/L (136-145); TOTAL PROTEIN 7.2 GM/DL (6.4-8.2)
[2020-01-28] MEDS: GABAPENTIN 100 MG CAP PO SCH ×2 (09:28→20:47)
[2020-01-28] MEDS: LIDOCAINE 5% (LIDODERM) PATCH TD SCH (09:28)
[2020-01-28] MEDS: IRON POLYSAC (NIFEREX) 150 MG CAP PO SCH ×2 (09:29→20:46)
[2020-01-28] MEDS: ENOXAPARIN 40MG/0.4ML SYRINGE (J1650 PER 10MG) SC SCH (09:29)
[2020-01-28] MEDS: cefTRIAXone SOD 2 GM in D5W MINI-BAG PLUS 50 ML IV SCH (09:29)
[2020-01-28] MEDS: CelecoXIB (CeleBREX) 100 MG CAP PO SCH ×2 (11:24→17:04)
[2020-01-28 15:15] VITALS: BP 120/77
[2020-01-28] MEDS: RAMELTEON 8 MG TAB (ROZEREM) PO SCH (20:46)
[2020-01-28] MEDS: SENOKOT S TAB PO SCH (20:46)
[2020-01-28] MEDS: **NOTE PATIENT COMMENT** MISC XX SCH (20:47)
[2020-01-28 22:00] VITALS: BP 117/77
[2020-01-29 06:00] VITALS: BP 96/59
[2020-01-29 06:37] LABS: HEMATOCRIT 28.2 % (42.0-52.0); HEMOGLOBIN 8.7 g/dl (13.5-17.5); MEAN CORPUSCULAR HEMOGLOBIN 24.9 pg (27.0-33.0); MEAN CORPUSCULAR HGB CONC 30.9 g/dl (32.0-36.5); MEAN CORPUSCULAR VOLUME 80.8 fl (80.0-96.0); PLATELET COUNT, AUTOMATED 384 10^3/uL (150-450); RED BLOOD COUNT 3.49 10^6/uL (4.30-6.10); WHITE BLOOD COUNT 11.1 10^3/uL (4.0-10.0)
[2020-01-29] MEDS: SODIUM CHLORIDE 0.9% INJ 10 ML SYR IV SCH (06:39)
[2020-01-29 07:39] LABS: ERYTHROCYTE SEDIMENTATION RATE 56 mm/hr (0-15)
[2020-01-29] MEDS: IRON POLYSAC (NIFEREX) 150 MG CAP PO SCH (08:32)
[2020-01-29] MEDS: GABAPENTIN 100 MG CAP PO SCH (08:32)
[2020-01-29] MEDS: cefTRIAXone SOD 2 GM in D5W MINI-BAG PLUS 50 ML IV SCH (08:32)
[2020-01-29] MEDS: CelecoXIB (CeleBREX) 100 MG CAP PO SCH (08:32)
[2020-01-29] MEDS: LIDOCAINE 5% (LIDODERM) PATCH TD SCH (08:33)
[2020-01-29] MEDS: SODIUM CHLORIDE 0.9% INJ 10 ML SYR IV PRN (08:33)
[2020-01-29] MEDS: ENOXAPARIN 40MG/0.4ML SYRINGE (J1650 PER 10MG) SC SCH (08:33)
[2020-01-29] MEDS: ACETAMINOPHEN TAB 650MG DOSE (2X325MG) PO PRN (08:37)
[2020-01-29] MEDS ORDERED: DOCUSATE SODIUM 100 MG CAP PO SCH (09:00)
[2020-01-29] MEDS ORDERED: OMEPRAZOLE 20 MG CAP PO SCH (09:00)
[2020-01-29] MEDS ORDERED: MIRALAX *UNIT DOSE* 17GM PACKET PO PRN (09:15)
[2020-01-29] MEDS ORDERED: ACET1TAB55 PO (10:29)
[2020-01-29] MEDS ORDERED: GABA-1171 PO ×2 (10:29)
[2020-01-29] MEDS ORDERED: NIFE15CA PO (10:29)
[2020-01-29] MEDS ORDERED: DOCU100C16 PO (10:29)
[2020-01-29] MEDS ORDERED: OMEP-218 PO (10:29)
[2020-01-29] MEDS: CYCLOBENZAPRINE 10MG TABLET PO PRN (11:44)
--- NOTE | 2020-01-29 12:30 | IPN ---
DATE: 01/28/2020 SUBJECTIVE: Tiburcio seems to be doing well. He states his back pain is better. He was transferred to [address] [place] [address]. He has no nausea, vomiting or diarrhea. He is being evaluated for rehab in [place] for continued IV antibiotics. No nausea, vomiting or diarrhea. Appetite is good. He states he has some shortness of breath with exertion or with eating or with talking too much. LABORATORY STUDIES: On 01/25 white count was 11.2, hemoglobin 8.7, hematocrit 28.1, platelets 344. Sodium 142, potassium 4.9, chloride 108, bicarbonate 28, BUN 15, creatinine 0.72, glucose 90, calcium 8.8, AST 23, ALT 58, alkaline phosphatase 105. PHYSICAL EXAMINATION: VITAL SIGNS: Temperature is 99.4, pulse 123, respirations 18, blood pressure 114/57, O2 sat 97% on room air. HEART: Normal S1, S2, tachycardic. Systolic ejection murmur 2/6 at the left lower sternal border. LUNGS: Diminished breath sounds at the bases but clear. ABDOMEN: Soft, nontender, no hepatosplenomegaly. EXTREMITIES: No clubbing, cyanosis, or edema. BACK: No point tenderness along the spine, but he complains of tension paraspinal both thoracic areas. NEUROLOGICAL: Normal. SKIN: No rashes. Cervical scar well healed from C-2 to upper thoracic area. IMPRESSION: 1. Tricuspid valve endocarditis with streptococcus mitis, vegetation of 2.7 cm with septic emboli to the lungs on IV Ceftriaxone. Cultures were negative on 01/17. 2. Thoracic diskitis T-6/T-7 early - Patient on IV Ceftriaxone with plan of discontinuing IV antibiotics which will be scheduled for February 28, end of therapy. 3. History of epidural abscess of the cervical spine a year ago had a drainage procedure. I suspect that was MRSA. 4. History of MRSA colonization. 5. Hepatitis C chronic. The patient received hepatitis A vaccine and hepatitis B booster while in the hospital. He will be followed up as an outpatient for treatment. PLAN: 1. Continue IV Ceftriaxone with end of treatment date February 28. 2. Repeat CBC, CRP, ESR tomorrow. 3. Patient to be transferred to [place] for continued IV antibiotics. [facility]
--- NOTE | 2020-01-29 13:28 | DS.PDOC ---
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 In the station he was found to be febrile to 103 and tachycardic x-rays brought to the hospital. In the hospital patient was initially confused which improved after IV fluids. He was febrile 102.5 with tachycardia and leukocytosis 23. Patient endorses feeling lousy for the past 1-2 weeks. Says he's been feeling warm at home with fevers chills and malaise for the past 1 week but did not seek medical attention. Endorses a cough that is not productive of sputum. Has some mild shortness of breath it's been ongoing for the past 1 week. Endorses feeling very sweaty over the past few days. In the ED patient was started on sepsis protocol and was given Zosyn initially followed by ceftriaxone and azithromycin. Patient endorses remote history of positive hepatitis C that has not been treated. Patient admits to using opiates daily 1-2 bags IV. Last use was day of admission. XR showed subtle left lower lung suspected infiltrate. Patient was admitted for further pneumonia treatment. HOSPITAL COURSE: Fevers persisted after admission. Blood cultures + for strep mitis and staph epidermidis. CT chest done: bilateral PNA- believed to be 2/2 to septic emboli. Echocardiogram: tricuspid valve endocarditis. Patient complained of acute thoracic back pain. On CT, + for T6-T7 diskitis, believed to be 2/2 to bacterial seeding. ID was consulted and helped manage this admission. WBC improved, fevers stopped. Repeat BCx: NG after 5 days. He was transfused 1 unit PRBC early in admission for likely chronic iron deficiency anemia, H/H has been otherwise stable with no s/s of bleeding. He has hx of Hep C and received vaccinations to complete for A and C. By 01/29/20, patient was much improved. Patient was disc harged to [facility] in [place], [place] to continue treatment with IV rocephin. He will need to complete 4 weeks total. ID to follow up after 2 weeks to determine need to continue IV vs. switching to PO. No s/s of withdrawl at discharge. PAST MEDICAL HISTORY: Opiate abuse Anxiety PAST SURGICAL HISTORY: Laminectomy cervical spine 2019 SOCIAL HISTORY: Denies alcohol use Denies tobacco use Denies illicit drug use other than IV opiate abuse using 1-2 bags of heroin daily. FAMILY HISTORY: Denies any family history ALLERGIES: Please see below. DISCHARGE MEDICATIONS: Please see below. PHYSICAL EXAMINATION: VS: Please see below CONSTITUTIONAL: No acute distress, resting comfortably, AAO x 3 EYES: PERRLA, EOM intact HENT, MOUTH: Normocephalic, atraumatic, moist mucous membranes NECK: SUPPLE, no JVD, no lymphadenopathy, no carotid bruit CV: Regular rate and rhythm, S1S2 normal, systolic murmur BACK: large well healed scar from neck to thoracic region. RESPIRATORY: Clear to auscultation bilaterally, no rales/rhonchi/wheezes GI: obese abd, BS positive in 4 quadrants, soft, nontender, nondistended, no rebound or guarding, no organomegaly : Deferred MUSCULOSKELETAL: Normal ROM. No cyanosis, clubbing, swelling, joint deformity, extremity edema INTEGUMENTARY: Intact, no rashes, no lesions, no erythema NEUROLOGIC: Cranial Nerves II-XII are intact, no focal deficits PSYCHIATRIC: Mood and affect are normal LABORATORY DATA/microbiology: Please see below Blood cultures x 2 sets 01/17/20: Strep mitis, staph epidermitis Blood cultures x 2 sets repeated 01/18/20: NG after 5 days IMAGING: Echo: EF 55-60 %. 1. Normal global left ventricular systolic and diastolic function. 2. Mild tricuspid regurgitation with mild pulmonary hypertension. 3. Echogenic structure noted on the tricuspid valve most likely represents vegetations. The patient might benefit from a transesophageal echocardiogram for further evaluation of the cardiac valves. Other imaging under "Imaging" ASSESSMENT: 34 y/o M with PMH of IV drug use treated for Strep and Staph bacteremia, sepsis 2/2 to tricuspid valve endocarditis 2/2 to IV drug use, bacterial pneumonia and bacterial discitis requiring ongoing IV ceftriaxone treatment for 4 weeks in rehab. Discharge today. PLAN: 1.Bacterial endocarditis, resolved sepsis and bacteremia. -Afebrile, WBC 11K, ESR elevated -Blood culture positive for Streptococcus mitis and Staphylococcus epidermidis -MRSA screen positive -Echo: tricuspid valve has an echogenic structure on it that may be related to a vegetation, measuring 2.5 x 2.7 cm in its largest dimensions. The pulmonic valve appeared normal in limited views. The proximal pulmonary artery branches were not well visualized. -C/w ceftriaxone for four additional weeks. After two weeks, please telemedicine appointment with Dr. Frey will determine whether or not to change to PO option or to continue IV treatment. -ID to follow closely. 2. Bacterial discitis of T6-T7 2/2 to bacteremia and endocarditis -Pain stable -C/w pain regimen, treatment under problem #1 3. Bilateral pneumonia 2/2 to septic emboli from endocarditis/bacteremia -Currently saturating well on RA, WBC 11K -CT: bilateral lower lobe above infiltrates with fairly dense consolidation lateral basal segment left lower lobe, posterior basal segment right lower lobe with some patchy infiltrates in the lateral basal segment right lower lobe and right middle lobe. No effusion or other infiltrates. No pleural effusion or other acute finding in the lungs. -Sputum cx: Unable to be provided -Blood cultures: see above -C/w treatment above 4. Microcytic anemia, JOYCE -H/H stable. -S/p 1 unit PRBC 01/21/20 -Stool for occult blood negative -peripheral smear result: Microcytic hypochromic anemia with anisocytosis -C/w iron supplement 5. Acute on chronic back pain 2/2 to diskitis, hx of cervical pain s/p surgery -hx of spinal neck abscess s/p surgery with chronic pain -MRI spine showed of T-6/T-7 possible early diskitis. Continue ceftriaxone IV -C/w gabapentin AM and PM 6. Opiate abuse -No s/s of withdrawl -F/u op with specialis 7. History Hep C -Per ID, patient is not immune to Hepatitis A and therefore will receive a vaccine. -He probably was vaccinated for Hepatitis B, but has a low titer and therefore received a second dose. DISPOSITION: Discharging today to [facility] in [place], [place]. F/u with Dr. Frey in several weeks. TIME SPENT ON DISCHARGE: Greater than 30 minutes. Vital Signs/I&Os Vital Signs Date Time Temp Pulse Resp B/P (MAP) Pulse Ox O2 Delivery O2 Flow Rate FiO2 01/29/20 06:00 97.7 100 17 96/59 (71) 97 Room Air I&O- Last 24 Hours up to 6 AM 01/29/20 06:00 Intake Total 1160 ml Output Total 0 ml Balance 1160 ml Laboratory Data Labs 24H Laboratory Tests 2 01/29/20 05:32: Nucleated Red Blood Cells % (auto) 0.0, Erythrocyte Sedimentation Rate 56H, C- Reactive Protein, Quantitative 5.74H 01/29/20 09:53: Coronavirus (COVID-19)(PCR) NEGATIVE CBC/BMP Laboratory Tests 01/29/20 05:32 Discharge Medications Scheduled Docusate Sodium (Docusate Sodium) 100 Mg Capsule, 100 MG PO BID Gabapentin (Gabapentin) 100 Mg Capsule, 100 MG PO QAM Gabapentin (Gabapentin) 100 Mg Capsule, 200 MG PO QPM Iron Ag,Ps/C/Fa6/B12/Zn/SA/Sto (Niferex Tablet) 1 Each Tablet, 150 MG PO BID Omeprazole (Omeprazole) 20 Mg Capsule.dr, 40 MG PO DAILY Scheduled PRN Acetaminophen (Acetaminophen) 325 Mg Tablet, 650 MG PO Q6HP PRN for PAIN OR FEVER Allergies Coded Allergies: No Known Allergies (Unverified , 01/17/20) Birdie Hammer MD Jan 29, 2020 13:28
== END 2020-01-29 12:56 | disposition other institution (70) | DRG 720 ==
LOC: M ED 21:55 → M ED INP 01-18 04:27 → ENRESERV 01-18 05:10 → M PCU 01-18 06:22 → M MS5PR 01-28 17:12
PROVIDERS: ADMIT Family Medicine; ATTEND Family Medicine
PROC: 02HV33Z Insertion of Infusion Device into Superior Vena Cava, Percutaneous Approach (ICD-10-PCS; 2020-01-21)
PROC: 30233N1 Transfusion of Nonautologous Red Blood Cells into Peripheral Vein, Percutaneous Approach (ICD-10-PCS; principal; 2020-01-21 15:00)
DX: A41.9 Sepsis, unspecified organism (principal); I33.0 Acute and subacute infective endocarditis; I76 Septic arterial embolism; J18.9 Pneumonia, unspecified organism; E87.1 Hypo-osmolality and hyponatremia; F11.10 Opioid abuse, uncomplicated; D50.9 Iron deficiency anemia, unspecified; M46.44 Discitis, unspecified, thoracic region; Z79.899 Other long term (current) drug therapy; B18.2 Chronic viral hepatitis C

== ENCOUNTER → 2020-04-22 | Outpatient (REF) | payer OTHER ==
[~2020-04-22] MED LIST: ACET1TAB55 PO; DOCU100C16 PO; GABA-1171 PO; NIFE15CA PO; OMEP-218 PO
[2020-04-22 15:26] LABS: BASO % 0.4 % (0.0-1.0); EOS # 0.3 10^3/uL (0.0-0.5); EOS % 2.6 % (0.0-3.0); HEMATOCRIT 44.9 % (42.0-52.0); HEMOGLOBIN 13.3 g/dl (13.5-17.5); LYMPH # 1.9 10^3/uL (1.5-5.0); LYMPH % 20.2 % (24.0-44.0); MEAN CORPUSCULAR HEMOGLOBIN 24.8 pg (27.0-33.0); MEAN CORPUSCULAR HGB CONC 29.6 g/dl (32.0-36.5); MEAN CORPUSCULAR VOLUME 83.6 fl (80.0-96.0); MONO # 0.8 10^3/uL (0.0-0.8); MONO % 8.2 % (0.0-5.0); NEUTROPHILS # 6.5 10^3/uL (1.5-8.5); NEUTROPHILS % 68.2 % (36.0-66.0); PLATELET COUNT, AUTOMATED 394 10^3/uL (150-450); RED BLOOD COUNT 5.37 10^6/uL (4.30-6.10); WHITE BLOOD COUNT 9.6 10^3/uL (4.0-10.0)
[2020-04-22 16:14] LABS: ALT/SGPT 32 U/L (12-78); BILIRUBIN,TOTAL 0.2 MG/DL (0.2-1.0); BLOOD UREA NITROGEN 24 MG/DL (7-18); CALCIUM LEVEL 9.2 MG/DL (8.5-10.1); CARBON DIOXIDE LEVEL 26 MEQ/L (21-32); CHLORIDE LEVEL 107 MEQ/L (98-107); CREATININE FOR GFR 0.84 MG/DL (0.70-1.30); GLOMERULAR FILTRATION RATE > 60.0 (>60); GLUCOSE, FASTING 80 MG/DL (70-100); HEPATITIS B SURFACE ANTIBODY POSITIVE (POSITIVE); HIV 1&2 SCREEN CENTAUR NEGATIVE (NEGATIVE); POTASSIUM SERUM 4.4 MEQ/L (3.5-5.1); SODIUM LEVEL 141 MEQ/L (136-145); TOTAL PROTEIN 8.1 GM/DL (6.4-8.2)
[2020-04-22 17:31] LABS: ERYTHROCYTE SEDIMENTATION RATE 19 mm/hr (0-15)
[2020-04-25 09:08] LABS: HEPATITIS C QUANTITATION 185350 IU/mL (.); HEPATITIS C VIRUS GENOTYPE 3 (.)
== END ==
LOC: M SFHCPLAZ 12:18
PROVIDERS: ATTEND Internal Medicine Infectious Disease
DX: B18.2 Chronic viral hepatitis C (principal); I07.9 Rheumatic tricuspid valve disease, unspecified

== ENCOUNTER 2020-05-09 11:45 | Outpatient (RCR) | payer MEDICAID | END 2020-05-11 | disposition home or self-care (01) | LOC: M PT 11:45 | PROVIDERS: ATTEND Nurse Practitioner Family | DX: M54.2 Cervicalgia (principal) ==

== ENCOUNTER → 2020-05-13 | Outpatient (CLI) | payer MEDICAID ==
[~2020-05-13] MED LIST changes: +ISOVUE-370 76% 100ML VIAL As Ordered ONE
--- NOTE | 2020-05-14 08:31 | REP ---
INDICATION: LUNG MASS ,PNEUMONIA COMPARISON: 01/21/2020 TECHNIQUE: Axial contrast enhanced images from the thoracic inlet to the upper abdomen with coronal and sagittal reformations using 75 ml Isovue 370 intravenous contrast material. This CT examination was performed using the following dose reduction techniques: Automated exposure control, adjustment of mA and/or kv according to the patient's size, and use of iterative reconstruction technique. FINDINGS: Current examination now demonstrates ill-defined linear/nodular densities in the bilateral upper lobes (left greater than right) as well as increased somewhat nodular lesions at the right base which measure roughly up to 2.6 cm along with a new small right pleural effusion and evidence for bilateral hilar adenopathy. Areas of previously noted ill-defined opacity in the right middle lobe and left lower lobe have essentially resolved. These findings are nonspecific and warrant further investigation as acute pneumonia versus malignancy cannot definitively be differentiated. No pneumothorax. Tracheobronchial tree is patent. Further evaluation of the mediastinum demonstrates normal thoracic aorta and heart/pericardium. Surrounding musculoskeletal structures demonstrate degenerative changes at the mid and distal thoracic vertebral bodies without acute osseous abnormality IMPRESSION: Newly developed areas of ill-defined consolidation primarily noted in the left upper lobe and right lower lobe with new small right pleural effusion and bilateral hilar adenopathy. Few of the previously noted areas of opacity/consolidation have resolved. These findings are nonspecific and may represent a continued infectious/inflammatory process although malignancy cannot definitively be excluded. <Electronically signed by Nelson Mancilla > 05/14/20 0828
== END ==
LOC: M RAD 17:04
PROVIDERS: ATTEND Internal Medicine Infectious Disease
DX: J90 Pleural effusion, not elsewhere classified (principal); R91.8 Other nonspecific abnormal finding of lung field; J18.9 Pneumonia, unspecified organism; I07.9 Rheumatic tricuspid valve disease, unspecified; I26.90 Septic pulmonary embolism without acute cor pulmonale
CPT/HCPCS: 71260; Q9967

== ENCOUNTER → 2020-06-11 | Outpatient (RCR) | payer MEDICAID ==
[~2020-06-11] MED LIST changes: -ISOVUE-370 76% 100ML VIAL As Ordered ONE
== END | disposition home or self-care (01) ==
LOC: M PT 05-12 12:35
PROVIDERS: ATTEND Nurse Practitioner Family
DX: M54.2 Cervicalgia (principal)

== ENCOUNTER → 2020-08-04 | Outpatient (REF) | payer MEDICAID ==
[2020-08-04 15:15] LABS: APPEARANCE, URINE CLEAR (CLEAR); BACTERIA, URINE AUTO NEGATIVE (NEGATIVE); BILIRUBIN, URINE AUTO NEGATIVE (NEGATIVE); BLOOD, URINE BLOOD NEGATIVE (NEGATIVE); COLOR, URINE YELLOW (YELLOW); GLUCOSE, URINE (UA) AUTO NEGATIVE (NEGATIVE); KETONE, URINE AUTO NEGATIVE (NEGATIVE); LEUKOCYTE ESTERASE, URINE AUTO NEGATIVE (NEGATIVE); MUCUS, URINE SMALL (NEGATIVE); NITRITE, URINE AUTO NEGATIVE (NEGATIVE); PROTEIN, URINE AUTO NEGATIVE (NEGATIVE); RBC, URINE AUTO 0 /HPF (0-3); SPECIFIC GRAVITY URINE AUTO 1.018 (1.002-1.035); SQUAMOUS EPITHELIAL CELL UR AU 0 /HPF (0-6); UROBILINOGEN, URINE AUTO 0.2 mg/dL (0.0-2.0); WBC, URINE AUTO 0 /HPF (0-3)
[2020-08-04 15:40] LABS: ALBUMIN 3.6 GM/DL (3.2-5.2); ALT/SGPT 14 U/L (12-78); BILIRUBIN,DIRECT < 0.1 MG/DL (0.0-0.2); BILIRUBIN,TOTAL 0.3 MG/DL (0.2-1.0); TOTAL PROTEIN 7.3 GM/DL (6.4-8.2)
[2020-08-06 12:12] LABS: HEPATITIS C QUANTITATION HCV Not Detected IU/mL (.)
== END ==
LOC: M SFHCPLAZ 12:06
PROVIDERS: ATTEND Internal Medicine Infectious Disease
DX: R30.0 Dysuria (principal); B18.2 Chronic viral hepatitis C

== ENCOUNTER → 2020-08-21 | Outpatient (REF) ==
--- NOTE | 2020-08-21 14:29 | REPPI ---
INDICATION: DISABILITY DIAGNOSIS DETERMINATION, SPINE ABCESS. COMPARISON: MRI 01/20/2020. TECHNIQUE: Four views cervical spine in the AP and lateral projection. FINDINGS: There is no compression fracture or malalignment. There is straightening of the normal cervical lordosis. The disc spaces are well preserved. There is evidence of prior posterior decompression of C3 through C6 levels. IMPRESSION: No significant degenerative disc change. There is evidence of prior posterior decompression surgery at C3 through C6. <Electronically signed by Froylan Chi > 08/21/20 [id number]
--- NOTE | 2020-08-21 14:31 | REPPI ---
INDICATION: DISABILITY DIAGNOSIS DETERMINATION, SPINE ABCESS. COMPARISON: MRI 01/20/2020. TECHNIQUE: AP and lateral views lumbar spine, three views obtained. FINDINGS: There is no compression fracture or malalignment. There is normal lumbar lordosis. Disc spaces are well preserved. There is sclerosis and spurring at the facets of the lower lumbar spine. There is evidence of a transitional lumbar vertebral body. Four lumbar type vertebral bodies are present, with hypoplastic 12th ribs and sacralization of L5. IMPRESSION: Transitional lumbar vertebral body. Only 4 lumbar type vertebral bodies are present. There are degenerative changes at the facet joints of the lower lumbar spine. <Electronically signed by Froylan Chi > 08/21/20 [id number]
== END ==
LOC: M PLAIMG 10:14
PROVIDERS: ATTEND Internal Medicine
DX: Z00.00 Encounter for general adult medical examination without abnormal findings (principal)

== ENCOUNTER → 2020-12-09 | Outpatient (CLI) | payer MEDICAID ==
[2020-12-09 12:19] LABS: ALBUMIN 3.5 GM/DL (3.2-5.2); ALT/SGPT 22 U/L (12-78); BILIRUBIN,DIRECT < 0.1 MG/DL (0.0-0.2); BILIRUBIN,TOTAL 0.2 MG/DL (0.2-1.0)
[2020-12-11 00:07] LABS: HEPATITIS C QUANTITATION HCV Not Detected IU/mL (.)
== END ==
LOC: M PLALAB 08:14
PROVIDERS: ATTEND Internal Medicine Infectious Disease
DX: B18.2 Chronic viral hepatitis C (principal)

== ENCOUNTER 2021-01-22 20:24 | Emergency (ER) | payer MEDICAID ==
[~2021-01-22] VITALS: Ht 152.4 cm; Wt 70.0 kg
--- OUTSIDE RECORDS SUMMARY | 2021-01-22 20:30 | CCD ---
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 Acti ve confirmed 656762845 Problem Hypertension, unspecified type I10 Active confir med 36382028 Problem Other chronic pain G89.29 Active confirmed 8 9325444 Problem Acute septic pulmonary embolism without acute cor pulmonal e I26.90 Active confirmed 854305225 Problem 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 Active confi rmed 43297984 Problem Infection due to Streptococcus mitis group A49.1 Active confirmed 360326185 ALLERGIES No Known Allergies ENCOUNTERS from 1984 to 2020-10-27 Encounter Location Date Provider Diagnosis [address] [phone] [place] [address] Sep, Dany Frey IMMUNIZATIONS Vaccine Route Administration Date Status Hepatitis A Adult 1.0mL Havrix IM Intramuscular August 04, 2020 Administered Hepatitis A Adult 1.0mL Havrix Unknown Feb 11, 2020 A dministered Hepatitis B Adult 1.0mL Engerix-B Unknown Feb 11, 2020 Administered SOCIAL HISTORY Tobacco Use: Social History Observation Description Date Details (start date - stop date) Never Smoker Sex Assigned At : Social History Observation Description Sex Assigned At Unknown Education: Question Answer Notes Level of Education: Finished High School Language: Question Answer Notes Languages spoken: Maltese Taoist: Question Answer Notes [employer]ist 08 [employer] Sexual Hx: Question Answer Notes Had sex in the last 12 months (vaginal, oral, or anal)? Yes with Women only Alcohol Screening: Question Answer Notes Did you have a drink containing alcohol in the past year? Ye s Points 1 Interpretation Negative How often did you have six or more drinks on one occas ion in the past year? Never (0 points) How many drinks did you have on a typica l day when you were drinking in the past year? 1 or 2 (0 points) How often did you have a drink containing alcohol in t he past year? Monthly or less (1 point) Tobacco Use: Question Answer Notes Are you a: never smoker REASON FOR REFERRAL No Information VITAL SIGNS No information MEDICATIONS Medication SIG (Take, Route, Frequency, Duration) Notes Start Da te End Date Status CeleBREX 200 MG TAKE ONE CAPSULE BY MOUTH TWICE A DAY WITH FOOD for 3 0 Active Epclusa 400-100 MG 1 tablet Orally Once a day Active Cyclobenzaprine HCl 10 MG 1 tab Orally BID as needed for 30 Days Active Gabapentin 300 MG 1 capsule Orally BID for 30 Days Active Eliquis 5 MG as directed Orally BID for 30 Days Active traZODone HCl 50 MG 1 tablet at bedtime as needed Orally Onc e a day for 30 Days Active Acetaminophen 500 MG TAKE TWO TABLETS BY MOUTH EVERY 6 HOURS NEEDED for 15 Active PROCEDURES No Information RESULTS No Results REASON FOR VISIT Referral to dermatology MEDICAL (GENERAL) HISTORY Type Description Date Medical History endocarditis tricuspid valve culture Streptococcus mitis 2.7 cm vegetation hospital admission 01/17 discharge 01/29 2020 treatment with 3 month of IV Rocephin, Medical History hepatosplenomegaly Medical History Septic emboli to both lungs on Eliquis Medical History chronic hepatitis C Surgical History Cervical epidural abscess 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/2018 Hospitalization History [facility] and transferred to rehab facilit y 01/2020-04/2020 Goals Section No Information Health Concerns No Information MEDICAL EQUIPMENT No Information MENTAL STATUS No Information FUNCTIONAL STATUS No Information ASSESSMENTS No Information PLAN OF TREATMENT Medication Medication Name Sig Start Date Stop Date CeleBREX 200 MG TAKE ONE CAPSULE BY MOUTH TWICE A DAY WITH FOOD for 30 Eliquis 5 MG as directed Orally BID for 30 Days Cyclobenzaprine HCl 10 MG 1 tab Orally BID as needed for 30 Days Gabapentin 300 MG 1 capsule Orally BID for 30 Days Acetaminophen 500 MG TAKE TWO TABLETS BY MOUTH EVERY 6 HOURS NEEDED for 15 Next Appt Details Provider Name:Dany Frey, 2020-10-12 7 10:30:00 AM, [address] [place] [address], , [place], [address], Provider Name:Martha Gerard, 2020-03 0-12 11:00:00 AM, [address] [place] [address], , [place], [address], Insurance Providers Payer Name Payer Address Payer Phone Insured Name Patient Relati onship to Insured Coverage Start Date Coverage End Date MEDICAID [employer] [address] [facility] [id number] [place] self
--- OUTSIDE RECORDS SUMMARY | 2021-01-22 20:30 | CCD ---
Author Organization Unknown Address [address] [place] [address] Phone [phone] Care Team Providers Care Stacker Operator Name Role Phone Tyrone Cross Unavailable Unavailable Allergies Code Code System Name Reaction Severity Status Onset NKDA Medications Name Status Start Date Stop Date acetaminophen 500 mg tablet TAKE TWO TABLETS BY MOUTH EVERY 6 HOURS NEEDED Active Not available buprenorphine 8 mg-naloxone 2 mg subling ual film PLACE ONE FILM UNDER THE TONGUE EVERY DAY MAXIMUM DAILY DOSE 1 FILM Active Not available celecoxib 200 mg capsule TAKE ONE CAPSULE BY MOUTH TWICE A DAY WITH FOOD Completed 11/24/2020 cyclobenzaprine 10 mg tablet TAKE ONE TABLET BY MOUTH TWO TIMES A DAY NEEDED Active Not available Eliquis 5 mg tablet TAKE ONE TABLET BY MOUTH TWO TIMES A DAY DIRECTED Active Not available gabapentin 300 mg capsule TAKE ONE CAPSULE BY MOUTH TWO TIMES A DAY Active Not available sofosbuvir 400 mg-velpatasvir 100 mg tab let TAKE ONE TABLET BY MOUTH EVERY DAY Active Not available trazodone 50 mg tablet TAKE ONE TABLET BY MOUTH EVERY DAY AT BEDTIME NEEDED Completed 11/24/2020 Problems Name Status Onset Date Source Opioid Dependence in Remission Active 11/24/2020 Procedures None recorded. Results Lab Results Date Name Specimen Result Interpretation Description Value Range Status Address 11/24/2020 Drug of Abuse Panel, Urine No observation recorded. [facility] (Lab): [address], [place] Past Encounters 12/01/2020 Opioid Dependence in Remission Tyrone Cross MD: [address] [place] [address], Ph. 11/24/2020 Opioid Dependence in Remission Tyrone Cross MD: [address] [place] [address], Ph. 10/24/2020 Tyrone Cross MD: [address] [place] [address], Ph. Social History Tobacco Smoking Status Never Smoker Vaccine List None recorded. Plan of Care Reminders Provider Appointments None recorded. Lab None recorded. Referral None recorded. Procedures None recorded. Surgeries None recorded. Imaging None recorded. Vitals 12/01/2020 01:40PM MAT Height Weight BMI Blood Pressure 62 in 146 lbs 8 oz 26.8 kg/m2 111/81 mm[Hg] 11/24/2020 02:20PM MAT Height Weight BMI Blood Pressure 62 in 144 lbs 8 oz 26.4 kg/m2 118/82 mm[Hg]
--- OUTSIDE RECORDS SUMMARY | 2021-01-22 20:30 | CCD ---
Author Organization Unknown Address [address] [place] [address] Phone [phone] Care Team Providers Care Catalytic Converter Operator Name Role Phone Tyrone Cross Unavailable Unavailable Allergies Code Code System Name Reaction Severity Status Onset NKDA Medications Name Status Start Date Stop Date acetaminophen 500 mg tablet Active Not available buprenorphine 8 mg-naloxone 2 [...] BY MOUTH TWO TIMES A DAY DIRECTED Completed 12/15/2020 gabapentin 300 mg capsule Active Not av ailable sofosbuvir 400 mg-velpatasvir 100 mg tab let TAKE ONE TABLET BY MOUTH EVERY DAY Completed 06/2020 trazodone 50 mg tablet TAKE ONE TABLET BY MOUTH EVERY DAY AT BEDTIME NEEDED Completed 11/24/2020 Problems Name Status Onset Date Source Opioid Dependence in Remission Active 11/24/2020 Gastric Ulcer Active 12/08/2020 Superficial Acne Vulgaris Active 12/08/2020 Procedures None recorded. Results Lab Results Date Name Specimen Result Interpretation Description Value Range Status Address 12/08/2020 Drug of Abuse Panel, Urine No observation recorded. [facility] (Lab): [address], [place] 12/01/2020 Drug of Abuse Panel, Urine No observation recorded. [facility] (Lab): [address], [place] 11/24/2020 Drug of Abuse Panel, Urine No observation recorded. [facility] (Lab): [address], [place] Past Encounters 12/15/2020 Opioid Dependence in Remission Tyrone Cross MD: [address] [place] [address], Ph. 12/08/2020 Opioid Dependence in Remission; Gastric Ulcer; Superficial Acne Vulgaris Tyrone Cross MD: [address] [place] [address], Ph. 12/01/2020 Opioid Dependence in Remission Tyrone Cross MD: [address] [place] [address], Ph. 11/24/2020 Opioid Dependence in Remission Tyrone Cross MD: [address] [place] [address], Ph. 10/24/2020 Tyrone Cross MD: [address] [place] [address], Ph. Social History Tobacco Smoking Status Never Smoker Vaccine List None recorded. Plan of Care Reminders Provider Appointments None recorded. Lab None recorded. Referral None recorded. Procedures None recorded. Surgeries None recorded. Imaging None recorded. Vitals 12/15/2020 01:40PM MAT Height Weight BMI Blood Pressure 62 in 152 lbs 8 oz 27.9 kg/m2 127/87 mm[Hg] 12/08/2020 04:20PM ESTABLISHED [id number] Height Weight BMI Blood Pressure 62 in 153 lbs 2 oz 28 kg/m2 (1) 154/104 mm [Hg] (2) 122/86 mm[Hg] 12/01/2020 01:40PM MAT Height Weight BMI Blood Pressure 62 in 146 lbs 8 oz 26.8 kg/m2 111/81 mm[Hg] 11/24/2020 02:20PM MAT Height Weight BMI Blood Pressure 62 in 144 lbs 8 oz 26.4 kg/m2 118/82 mm[Hg]
--- OUTSIDE RECORDS SUMMARY | 2021-01-22 20:30 | CCD ---
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 Acti ve confirmed 405958087 Problem Hypertension, unspecified type I10 Active confir med 65739076 Problem Other chronic pain G89.29 Active confirmed 8 3770385 Problem Acute septic pulmonary embolism without acute cor pulmonal e I26.90 Active confirmed 570664118 Problem 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 Active confi rmed 10694854 Problem Infection due to Streptococcus mitis group A49.1 Active confirmed 631872552 ALLERGIES No Known Allergies ENCOUNTERS from 1984 to 2020-11-27 Encounter Location Date Provider Diagnosis [address] [phone] [place] [address] Nov, Dany Frey IMMUNIZATIONS Vaccine Route Administration Date [...] School Language: Question Answer Notes Languages spoken: Vietnamese Advent: Question Answer Notes Advent 08 L[employer] Day Sexual Hx: Question Answer Notes Had sex [...] Information RESULTS No Results REASON FOR VISIT No Show Informational Letter MEDICAL (GENERAL) HISTORY Type Description Date Medical History endocarditis tricuspid valve culture Streptococcus mitis 2.7 cm vegetation hospital admission 01/17 discharge 01/29 2020 treatment with 3 month of IV Rocephin, Medical History hepatosplenomegaly Medical History Septic emboli to both lungs on Eliquis Medical History chronic hepatitis C Surgical History Cervical epidural abscess 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 [id number] [place] MENA self
--- OUTSIDE RECORDS SUMMARY | 2021-01-22 20:30 | CCD ---
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 Acti ve confirmed 019361486 Problem Hypertension, unspecified type I10 Active confir med 92644678 Problem Other chronic pain G89.29 Active confirmed 8 1267704 Problem Acute septic pulmonary embolism without acute cor pulmonal e I26.90 Active confirmed 480850267 Problem 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 Active confi rmed 79253801 Problem Infection due to Streptococcus mitis group A49.1 Active confirmed 506358041 ALLERGIES No Known Allergies ENCOUNTERS from 1984 to 2020-10-29 Encounter Location Date Provider Diagnosis [address] [phone] [place] [address] Oct, Dany Frey IMMUNIZATIONS Vaccine Route Administration Date [...] School Language: Question Answer Notes Languages spoken: Albanian Holiness: Question Answer Notes Holiness 08 Hindu Sexual Hx: Question Answer Notes Had sex [...] Information RESULTS No Results REASON FOR VISIT no show MEDICAL (GENERAL) HISTORY Type Description Date Medical History endocarditis tricuspid valve culture Streptococcus mitis 2.7 cm vegetation hospital admission 01/17 discharge 01/29 2020 treatment with 3 month of IV Rocephin, Medical History hepatosplenomegaly Medical History Septic emboli to both lungs on Eliquis Medical History chronic hepatitis C Surgical History Cervical epidural abscess 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
--- OUTSIDE RECORDS SUMMARY | 2021-01-22 20:30 | CCD ---
Author Organization Unknown Address [address] [place] [address] Phone [phone] Care Team Providers Care Chief Executive Officer Name Role Phone Tyrone Cross Unavailable Unavailable Allergies Code Code System Name Reaction Severity Status Onset NKDA Medications Name Status Start Date Stop Date acetaminophen 500 mg tablet TAKE TWO TABLETS BY MOUTH EVERY 6 HOURS NEEDED Active Not available buprenorphine 8 mg-naloxone 2 mg subling ual tablet Place 1 tablet every day by sublingual route. Active Not available celecoxib 200 mg capsule TAKE ONE CAPSULE BY MOUTH TWICE A DAY WITH FOOD Completed 11/24/2020 cyclobenzaprine 10 mg tablet TAKE ONE TABLET BY MOUTH TWO TIMES A DAY NEEDED Active Not available Eliquis 5 mg tablet TAKE ONE TABLET BY MOUTH TWO TIMES A DAY DIRECTED Completed 12/15/2020 gabapentin 300 mg capsule TAKE ONE CAPSULE BY MOUTH TWO TIMES A DAY Active Not available sofosbuvir 400 mg-velpatasvir 100 mg tab let TAKE ONE TABLET BY MOUTH EVERY DAY Completed 06/2020 Suboxone 8 mg-2 mg sublingual film Completed 12/30/2020 trazodone 50 mg tablet TAKE ONE TABLET BY MOUTH EVERY DAY AT BEDTIME NEEDED Completed 11/24/2020 Problems Name Status Onset Date Source Opioid Dependence in Remission Active 11/24/2020 Gastric Ulcer Active 12/08/2020 Superficial Acne Vulgaris Active 12/08/2020 Body Mass Index 25-29 - Overweight Active 12/30/2020 Procedures None recorded. Results Lab Results Date Name Specimen Result Interpretation Description Value Range Status Address 12/22/2020 Drug of Abuse Panel, Urine No observation recorded. [facility] (Lab): [address], [place] 12/15/2020 Drug of Abuse Panel, Urine No observation recorded. [facility] (Lab): [address], [place] 12/08/2020 Drug of Abuse Panel, Urine No observation recorded. [facility] (Lab): [address], [place] 12/01/2020 Drug of Abuse Panel, Urine No observation recorded. [facility] (Lab): [address], [place] 11/24/2020 Drug of Abuse Panel, Urine No observation recorded. [facility] (Lab): [address], [place] Past Encounters 01/01/2021 Opioid Dependence in Remission Tyrone Cross MD: [address] [place] [address], Ph. 12/31/2020 Tyrone Cross MD: [address] [place] [address], Ph. 12/30/2020 Body Mass Index 25-29 - Overweight; Opioid Dependence in Remission Tyrone Cross MD: [address] [place] [address], Ph. 12/22/2020 Opioid Dependence in Remission Tyrone Cross MD: [address] [place] [address], Ph. 12/15/2020 Opioid Dependence in Remission Tyrone Cross MD: [address] [place] [address], Ph. 12/08/2020 Opioid Dependence in Remission; Gastric Ulcer; Superficial Acne Vulgaris Tyrone Cross MD: [address] [place] [address], Ph. 12/01/2020 Opioid Dependence in Remission Tyrone Cross MD: [address] [place] [address], Ph. 11/24/2020 Opioid Dependence in Remission Tyrone Cross MD: [address] [place] [address], Ph. 10/24/2020 Tyrone Cross MD: [address] [place] [address], Ph. Social History Tobacco Smoking Status Never Smoker Vaccine List None recorded. Plan of Care Reminders Provider Appointments None recorded. Lab None recorded. Referral None recorded. Procedures None recorded. Surgeries None recorded. Imaging None recorded. Vitals 12/30/2020 03:20PM MAT Height Weight BMI Blood Pressure 62 in 150 lbs 4 oz 27.5 kg/m2 112/82 mm[Hg] 12/22/2020 03:20PM MAT Height Weight BMI Blood Pressure 62 in 152 lbs 8 oz 27.9 kg/m2 107/70 mm[Hg] 12/15/2020 01:40PM MAT Height Weight BMI Blood Pressure 62 in 152 lbs 8 oz 27.9 kg/m2 127/87 mm[Hg] 12/08/2020 04:20PM ESTABLISHED [id number] Height Weight BMI Blood Pressure 62 in 153 lbs 2 oz 28 kg/m2 (1) 154/104 mm [Hg] (2) 122/86 mm[Hg] 12/01/2020 01:40PM MAT Height Weight BMI Blood Pressure 62 in 146 lbs 8 oz 26.8 kg/m2 111/81 mm[Hg] 11/24/2020 02:20PM MAT Height Weight BMI Blood Pressure 62 in 144 lbs 8 oz 26.4 kg/m2 118/82 mm[Hg]
--- OUTSIDE RECORDS SUMMARY | 2021-01-22 20:30 | CCD ---
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 Active confirmed 675445815 Problem Hypertension, unspecified type I10 Active confir med 45759722 Problem Ingrown toenail of left foot L60.0 Active con firmed 50940869439616808 Problem Chronic hepatitis C without hepatic coma B18.2 Active confirmed 618100105 Problem Other chronic pain G89.29 Active confirmed 8 8327134 Problem Infection due to Streptococcus mitis group A49.1 Active confirmed 780199215 Problem 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 Acti ve confirmed 879571007 ALLERGIES No Known Allergies ENCOUNTERS from 1984 to 2020-12-24 Encounter Location Date Provider Diagnosis [address] [phone] [place] [address] Dec, Martha Gee IMMUNIZATIONS Vaccine Route Administration Date Status Hepatitis [...] School Language: Question Answer Notes Languages spoken: Salvadorean Congregational: Question Answer Notes Congregational 08 Religious Sexual Hx: Question Answer Notes Had sex [...] te End Date Status CeleBREX 200 MG 1 capsule with food Orally Twice a day for 30 Days Active Cyclobenzaprine HCl 10 MG 1 tab Orally BID as needed Active traZODone HCl 50 MG 1 tablet at bedtime as needed Orally Onc e a day for 30 Days Not-Taking Acetaminophen 500 MG TAKE TWO TABLETS BY MOUTH EVERY 6 HOURS NEEDED for 15 Active Gabapentin 300 MG 1 capsule Orally BID Active CeleBREX 200 MG TAKE ONE CAPSULE BY MOUTH TWICE A DAY WITH FOOD for 3 0 Active Suboxone 8-2 MG 1 film under the tongue and allow to dissolve Sublingual Once a day Active PROCEDURES No Information RESULTS No Results REASON FOR VISIT no show informational letter MEDICAL (GENERAL) HISTORY Type Description Date Medical History endocarditis tricuspid valve culture Streptococcus mitis 2.7 cm vegetation hospital admission 01/17 discharge 01/29 2020 treatment with 3 month of IV Rocephin, Medical History hepatosplenomegaly Medical History Septic emboli to both lungs on Eliquis Medical History chronic hepatitis C genotype 3, Epclusa 12 weeks 05/2020, CURED had SVR12 on 11/2020 Medical History HX IVDU currently on suboxone for pain fátima bear Surgical History Cervical epidural abscess 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/2018 Hospitalization History [facility] and transferred to rehab facilit y 01/2020-04/2020 Goals Section No Information Health Concerns No Information MEDICAL EQUIPMENT No Information MENTAL STATUS No Information FUNCTIONAL STATUS No Information ASSESSMENTS No Information PLAN OF TREATMENT Medication Medication Name Sig Start Date Stop Date CeleBREX 200 MG 1 capsule with food Orally Twice a day for 30 Da ys Gabapentin 300 MG 1 capsule Orally BID Cyclobenzaprine HCl 10 MG 1 tab Orally BID as needed Insurance Providers Payer Name Payer Address Payer Phone Insured Name Patient Relati onship to Insured Coverage Start Date Coverage End Date MEDICAID [employer] [address] [facility] [id number] SAS[place] CUEVAS self
--- OUTSIDE RECORDS SUMMARY | 2021-01-22 20:30 | CCD ---
Author Organization Unknown Address [address] [place] [address] Phone [phone] Care Team Providers Care Research Home Economist Name Role Phone Tyrone Cross Unavailable Unavailable [...] [facility] (Lab): [address], [place] 12/15/2020 Drug of Abuse Panel, Urine No observation recorded. [facility] (Lab): [address], [place] 12/08/2020 Drug of Abuse Panel, Urine No observation recorded. [facility] (Lab): [address], [place] 12/01/2020 Drug of Abuse Panel, Urine No observation recorded. [facility] (Lab): [address], [place] 11/24/2020 Drug of Abuse Panel, Urine No observation recorded. [facility] (Lab): [address], [place] Past Encounters 01/01/2021 Opioid Dependence in Remission Tyrone Cross MD: [address] [place] [address], Ph. 12/31/2020 Tyrone Cross MD: [address] [place] [address], Ph. 12/30/2020 Body Mass Index 25-29 - Overweight; Opioid Dependence in Remission Tyrone Cross MD: [address] [place] [address], Ph. 12/22/2020 Opioid Dependence in Remission Tyrone Cross MD: [address] [place] [phone], Ph. 12/15/2020 Opioid Dependence in Remission Tyrone Cross MD: [address] [place] [address], Ph. 12/08/2020 Opioid Dependence in Remission; Gastric Ulcer; Superficial Acne Vulgaris Tyrone Cross MD: [address] [place] [address], Ph. 12/01/2020 Opioid Dependence in Remission Tyrone Cross MD: [address] [place] [address], Ph. 11/24/2020 Opioid Dependence in Remission Tyrone Cross MD: [address] [place] [address], Ph. 10/24/2020 Tyrone Cross MD: [address] [place] [address], Ph. Social History Tobacco Smoking Status Never [...] 27.9 kg/m2 127/87 mm[Hg] 12/08/2020 04:20PM ESTABLISHED [id number] Height Weight BMI Blood Pressure 62 in 153 lbs 2 oz 28 kg/m2 (1) 154/104 mm [Hg] (2) 122/86 mm[Hg] 12/01/2020 01:40PM MAT Height Weight BMI Blood Pressure 62 in 146 lbs 8 oz 26.8 kg/m2 111/81 mm[Hg] 11/24/2020 02:20PM MAT Height Weight BMI Blood Pressure 62 in 144 lbs 8 oz 26.4 kg/m2 118/82 mm[Hg]
--- OUTSIDE RECORDS SUMMARY | 2021-01-22 20:30 | CCD ---
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 Active confirmed 363169353 Problem Hypertension, unspecified type I10 Active confir med 59894739 Problem Ingrown toenail of left foot L60.0 Active con firmed [id number] Problem Chronic hepatitis C without hepatic coma B18.2 Active confirmed 075603707 Problem Other chronic pain G89.29 Active confirmed 8 1459183 Problem Infection due to Streptococcus mitis group A49.1 Active confirmed 208532987 Problem 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 Acti ve confirmed [id number] ALLERGIES No Known Allergies ENCOUNTERS from 1984 to 2020-12-22 Encounter Location Date Provider Diagnosis [facility] [place] [address] [facility] [phone] [place] [address] Nov, Dnay Frey Chronic hepatitis C without hepatic coma B18.2 ; 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 ; Infection due to Streptococcus mitis group A49.1 ; 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 ; 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 ; Hypertension, unspecified type I10 ; Acne vulgaris L70.0 ; Acute septic pulmonary embolism without acute cor pulmonale I26.90 and Ingrown toenail of left foot L60.0 IMMUNIZATIONS Vaccine Route Administration Date Status Hepatitis [...] School Language: Question Answer Notes Languages spoken: Swiss Jew: Question Answer Notes Jew 08 Zoroastrianism Sexual Hx: Question Answer Notes Had sex [...] you a: never smoker REASON FOR REFERRAL from 1984 to 2020-12-22 Reason Acne on back Diagnosis 1 Acne vulgaris (L70.0) Referral Organization [facility] Infectious [facility] [place] Referring Provider First Name Dany Referring Provider Last Name Tk Referring Provider Specialty Infectious Disease Referred Provider Janae Trent Referred Provider Specialty Dermatology Referral Priority Routine General Notes Sirena Richey 12/11/2020 8:11:31 AM > faxedCacarmelnathalieSirena 12/11/2020 11:45:36 AM > 1st office did not take insurance sent to another office Reason Referral for painful ingrown toenail Diagnosis 1 Ingrown toenail of left foot (L60.0) Referral Organization [facility] Infectious Disease [place] Referring Provider First Name Dany Referring Provider Last Name [facility] Referring Provider Specialty Infectious Disease Referred Provider Gideon Skinner Referred Provider Specialty Podiatry Referral Priority Routine General Notes Sirena Richey 12/11/2020 8:12:41 AM > sent P2P and faxed VITAL SIGNS Weight 155 lbs Nov, Weight-kg 70.31 kg Nov, Height 53 in Nov, BMI 38.79 kg/m2 Nov, Heart Rate 112 /min Nov, Respiratory Rate 16 /min Nov, Temperature 97.4 degrees Fahrenheit Nov, Oximetry 96% Nov, Blood pressure systolic 118 mm Hg Nov, Blood pressure diastolic 74 mm Hg Nov, MEDICATIONS Medication SIG (Take, Route, Frequency, Duration) [...] a day Active PROCEDURES No Information RESULTS Component Value Reference Range LIVER PROFILE Reviewed date:12/09/2020 14:58:39 Interpretation: Performing Lab:[facility], [facility] [address] [facility] [address] , ,[place] [address] AST/SGOT 18 7-37 ALT/SGPT 22 12-78 ALKALINE PHOSPHATASE 87 45-117 BILIRUBIN,TOTAL 0.2 0.2-1.0 BILIRUBIN,DIRECT < 0.1 0.0-0.2 TOTAL PROTEIN 7.0 6.4-8.2 ALBUMIN 3.5 3.2-5.2 ALBUMIN/GLOBULIN RATIO 1.0 HEPATITIS C QUANT BY PCR Reviewed date:12/15/2020 12:38:42 Interpretation: Performing Lab:[facility], [facility] [address] [facility] [address] , ,[place] [address] HEPATITIS C QUANTITATION HCV Not Detected . Hepatitis C log10 TNP . REASON FOR VISIT Fu MEDICAL (GENERAL) HISTORY Type Description Date Medical [...] HX IVDU currently on suboxone for pain m mely Dr Tyrone bear Surgical History Cervical epidural abscess 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/2018 Hospitalization History [facility] and transferred to rehab facilit y 01/2020-04/2020 Goals Section No Information Health Concerns No Information MEDICAL EQUIPMENT No Information MENTAL STATUS No Information FUNCTIONAL STATUS No Information ASSESSMENTS Encounter Date Diagnosis Assessment Notes Treatment Notes Treatm ent Clinical Notes Nov, Chronic hepatitis C without hepatic coma (ICD-10 - B18.2) He finished Epclusa 1 tablet daily to take with supper 12 weeks, started 05/20/2020 done in August 2020. Patient will have blood work today for SVR 12. He will be called with results Patient has genotype 3 stage F0 viral load less than 500,000. AST ALT normal. He'll remain abstinent of alcohol and drugs. He was advised not to donate any blood Nov, Endocarditis of tricuspid valve (ICD-10 - I07.9) Patient has finished 3 month of treatment with IV ceftriaxone. He had a large vegetation of 2.7 cm. He needs follow-up with cardiology a referral has been made last month. Patient will call Dr. Guo's office in the follow-up on an appointment. He will need follow-up echocardiogram. Nov, Infection due to Streptococcus mitis group (ICD- 10 - A49.1) Nov, Discitis thoracic region (ICD-10 - M46.44) CT chest did not show any evidence of discitis although it was not meant to look for the thoracic spine Nov, Intravenous drug abuse in remission (ICD-10 - F1 9.11) History of IV drug abuse. The patient has establish with [facility] and started suboxone through Dr Tyrone mott and hgoes to [facility] counseling Nov, Hypertension, unspecified type (ICD-10 - I10) HAd cardiology FU they recommended DC eliquis and Has FU echo in 6 months Nov, Acne vulgaris (ICD-10 - L70.0) Nov, Acute septic pulmonary embol ism without acute cor pulmonale (ICD-10 - I26.90) Patient was advised to discontinue Eliquis as recommended by cardiology Nov, Ingrown toenail of left foot (ICD-10 - L60.0) Referral to podiatry for infected toe nail if recurs PLAN OF TREATMENT Medication Medication Name Sig Start Date Stop Date CeleBREX 200 MG 1 capsule with food Orally Twice a day for 30 Da ys Gabapentin 300 MG 1 capsule Orally BID Cyclobenzaprine HCl 10 MG 1 tab Orally BID as needed Treatment Notes Assessment Notes Clinical Notes Chronic hepatitis C without hepatic coma He finished Epclusa 1 tablet daily to take with supper 12 weeks, started 05/20/2020 done in August 2020. Patient will have blood work today for SVR 12. He will be called with resultsPatient has genotype 3 stage F0 viral load less than 500,000. AST ALT normal.He'll remain abstinent of alcohol and drugs.He was advised not to donate any blood Endocarditis of tricuspid valve Patient has finished 3 month of treatment with IV ceftriaxone. He had a large vegetation of 2.7 cm. He needs follow-up with cardiology a referral has been made last month. Patient will call Dr. Guo's office in the follow-up on an appointment. He will need follow-up echocardiogram. Discitis thoracic region CT chest did no t show any evidence of discitis although it was not meant to look for the thoracic spine Intravenous drug abuse in remission Hist ory of IV drug abuse. The patient has establish with [facility] and started suboxone through Dr Tyrone mott and kali to [facility] counseling Hypertension, unspecified type [facility]Ad cardi ology FU they recommended DC eliquis and Has FU echo in 6 months Acute septic pulmonary embolism without acute cor pulmonale Patient was advised to discontinue Eliquis as recommended by cardiology Ingrown toenail of left foot Referral to podiatry for infected toe nail if recurs Referrals Referral Date Details Acne on back, I A [place] Referral for painful ingrown toenail, Gideon Skinner Next Appt Details prn Reason: Provider Name:Martha Gee, 2020-03 0-12 11:00:00 AM, [address] [facility], , [place], [address], Insurance Providers Payer Name Payer Address Payer Phone Insured Name Patient Relati onship to Insured Coverage Start Date Coverage End Date MEDICAID [employer] [address] [facility] [id number] SASCHA CUEVAS self
--- OUTSIDE RECORDS SUMMARY | 2021-01-22 20:30 | CCD ---
Author Organization Unknown Address [address] [place] [address] Phone [phone] Care Team Providers Care Welt Edge Rounder Name Role Phone Tyrone Cross Unavailable Unavailable Allergies None recorded. Medications Name Status Start Date Stop Date acetaminophen 500 mg tablet TAKE TWO TABLETS BY MOUTH EVERY 6 HOURS NEEDED Active Not available celecoxib 200 mg capsule TAKE ONE CAPSULE BY MOUTH TWICE A DAY WITH FOOD Active Not available cyclobenzaprine 10 mg tablet TAKE ONE TABLET [...] BY MOUTH EVERY DAY AT BEDTIME NEEDED Active Not available Problems None recorded. Procedures None recorded. Results Lab Results None recorded. Past Encounters 10/24/2020 Tyrone Cross MD: [address] [place] [phone], Ph. Social History None recorded. Vaccine List None recorded. Plan of Care Reminders Provider Appointments None recorded. Lab None recorded. Referral None recorded. Procedures None recorded. Surgeries None recorded. Imaging None recorded. Vitals None recorded.
--- OUTSIDE RECORDS SUMMARY | 2021-01-22 20:30 | CCD ---
Author Organization Unknown Address [address] [place] [address] Phone [phone] Care Team Providers Care Gleason Operator Name Role Phone Tyrone Cross Unavailable [...] 06/2020 Suboxone 8 mg-2 mg sublingual film Active Not available trazodone 50 mg tablet TAKE ONE TABLET BY MOUTH EVERY DAY AT BEDTIME NEEDED Completed 11/24/2020 Problems Name Status Onset Date Source Opioid Dependence in Remission Active 11/24/2020 Gastric Ulcer Active 12/08/2020 Superficial Acne Vulgaris Active 12/08/2020 Procedures None recorded. Results Lab Results Date Name Specimen Result Interpretation Description Value Range Status Address 12/15/2020 Drug of Abuse Panel, Urine No observation recorded. [facility] (Lab): [address], [place] 12/08/2020 Drug of Abuse Panel, Urine No observation recorded. [facility] (Lab): [address], [place] 12/01/2020 Drug of Abuse Panel, Urine No observation recorded. [facility] (Lab): [address], [place] 11/24/2020 Drug of Abuse Panel, Urine No observation recorded. [facility] (Lab): [address], [place] Past Encounters 12/22/2020 Opioid Dependence in Remission Tyrone Cross MD: [address] [place] [phone], Ph. 12/15/2020 Opioid Dependence in Remission Tyrone Cross MD: [address] [place] [phone], Ph. 12/08/2020 Opioid Dependence in Remission; Gastric Ulcer; Superficial Acne Vulgaris Tyrone Cross MD: [address] [place] [phone], Ph. 12/01/2020 Opioid Dependence in Remission Tyrone Cross MD: [address] [place] [phone], Ph. 11/24/2020 Opioid Dependence in Remission Tyrone Cross MD: [address] [place] [phone], Ph. 10/24/2020 Tyrone Cross MD: [address] [place] [phone], Ph. Social History Tobacco Smoking Status Never Smoker Vaccine List None recorded. Plan of Care Reminders Provider Appointments None recorded. Lab None recorded. Referral None recorded. Procedures None recorded. Surgeries None recorded. Imaging None recorded. Vitals 12/22/2020 03:20PM MAT Height Weight BMI Blood Pressure 62 in 152 lbs 8 oz 27.9 kg/m2 107/70 mm[Hg] 12/15/2020 01:40PM MAT Height Weight BMI Blood Pressure 62 in 152 lbs 8 oz 27.9 kg/m2 127/87 mm[Hg] 12/08/2020 04:20PM ESTABLISHED [id number] Height Weight BMI Blood Pressure 62 in 153 lbs 2 oz 28 kg/m2 (1) 154/104 mm [Hg] (2) 122/86 mm[Hg] 12/01/2020 01:40PM MAT Height Weight BMI Blood Pressure 62 in 146 lbs 8 oz 26.8 kg/m2 111/81 mm[Hg] 11/24/2020 02:20PM MAT Height Weight BMI Blood Pressure 62 in 144 lbs 8 oz 26.4 kg/m2 118/82 mm[Hg]
--- OUTSIDE RECORDS SUMMARY | 2021-01-22 20:30 | CCD ---
Author Organization Unknown Address [address] [place] [address] Phone [phone] Care Team Providers Care Cushion Filler Name Role Phone Tyrone Cross Unavailable Unavailable [...] Result Interpretation Description Value Range Status Address 12/01/2020 Drug of Abuse Panel, Urine No observation recorded. [facility] (Lab): [address], [place] 11/24/2020 Drug of Abuse Panel, Urine No observation recorded. [facility] (Lab): [address], [place] Past Encounters 12/08/2020 Opioid Dependence in Remission; Gastric Ulcer; Superficial Acne Vulgaris Tyrone Cross MD: [address] [place] [phone], Ph. 12/01/2020 Opioid Dependence in Remission Tyrone Cross MD: [address] [place] [phone], Ph. 11/24/2020 Opioid Dependence in Remission Tyrone Cross MD: [address] [place] [address], Ph. 10/24/2020 Tyrone Cross MD: [address] [place] [phone], Ph. Social History Tobacco Smoking Status Never Smoker Vaccine List None recorded. Plan of Care Reminders Provider Appointments None recorded. Lab None recorded. Referral None recorded. Procedures None recorded. Surgeries None recorded. Imaging None recorded. Vitals 12/08/2020 04:20PM ESTABLISHED [id number] Height Weight BMI Blood Pressure 62 in 153 lbs 2 oz 28 kg/m2 (1) 154/104 mm [Hg] (2) 122/86 mm[Hg] 12/01/2020 01:40PM MAT Height Weight BMI Blood Pressure 62 in 146 lbs 8 oz 26.8 kg/m2 111/81 mm[Hg] 11/24/2020 02:20PM MAT Height Weight BMI Blood Pressure 62 in 144 lbs 8 oz 26.4 kg/m2 118/82 mm[Hg]
--- OUTSIDE RECORDS SUMMARY | 2021-01-22 20:30 | CCD ---
Author Organization Unknown Address [address] [place] [address] Phone [phone] Care Team Providers Care Production Potter Name Role Phone Tyrone Cross Unavailable Unavailable [...] [facility] (Lab): [address], [place] 12/15/2020 Drug of Abuse Panel, Urine No observation recorded. [facility] (Lab): [address], [place] 12/08/2020 Drug of Abuse Panel, Urine No observation recorded. [facility] (Lab): [address], [place] 12/01/2020 Drug of Abuse Panel, Urine No observation recorded. [facility] (Lab): [address], [place] 11/24/2020 Drug of Abuse Panel, Urine No observation recorded. [facility] (Lab): [address], [place] Past Encounters 12/30/2020 Body Mass Index 25-29 - Overweight; Opioid Dependence in Remission Tyrone Cross MD: [address] [place] [address], Ph. 12/22/2020 Opioid Dependence in Remission Tyrone Cross MD: [address] [place] [address], Ph. 12/15/2020 Opioid Dependence in Remission Tyrone Cross MD: [address] [place] [address], Ph. 12/08/2020 Opioid Dependence in Remission; Gastric Ulcer; Superficial Acne Vulgaris Tyrone Cross MD: [address] [place] [phone], Ph. 12/01/2020 Opioid Dependence in Remission Tyrone Cross MD: [address] [place] [address], Ph. 11/24/2020 Opioid Dependence in Remission Tyrone Cross MD: [address] [place] [phone], Ph. 10/24/2020 Tyrone Cross MD: [address] [place] [phone], Ph. Social History Tobacco Smoking Status Never [...] 27.9 kg/m2 127/87 mm[Hg] 12/08/2020 04:20PM ESTABLISHED [id number] Height Weight BMI Blood Pressure 62 in 153 lbs 2 oz 28 kg/m2 (1) 154/104 mm [Hg] (2) 122/86 mm[Hg] 12/01/2020 01:40PM MAT Height Weight BMI Blood Pressure 62 in 146 lbs 8 oz 26.8 kg/m2 111/81 mm[Hg] 11/24/2020 02:20PM MAT Height Weight BMI Blood Pressure 62 in 144 lbs 8 oz 26.4 kg/m2 118/82 mm[Hg]
--- OUTSIDE RECORDS SUMMARY | 2021-01-22 20:33 | CCD ---
Author Author [facility] Organization [facility] Address Unknown Phone Unavailable Care Team Providers Care [facility] Chief Name Role Phone Brian Cross MD Unavailable Unavailable Brian Cross MD Unavailable Unavailable Brian Cross MD Unavailable Unavailable Brian Cross MD Unavailable Unavailable Brian Cross MD Unavailable Unavailable Brian Cross MD Unavailable Unavailable Brian Cross MD Unavailable Unavailable Brian Cross MD Unavailable Unavailable Brian Cross MD Unavailable Unavailable Brian Cross MD Unavailable Unavailable Brian Cross MD Unavailable Unavailable Brian Cross MD Unavailable Unavailable Brian Cross MD Unavailable Unavailable Brian Cross MD Unavailable Unavailable Brian Cross MD Unavailable Unavailable Brian Cross MD Unavailable Unavailable Brian Cross MD Unavailable Unavailable Brian Cross MD Unavailable Unavailable Brian Cross MD Unavailable Unavailable Brian Crsos MD Unavailable Unavailable Brian Cross MD Unavailable Unavailable Brian Cross MD Unavailable Unavailable Brian Cross MD Unavailable Unavailable Brian Cross MD Unavailable Unavailable Brian Cross MD Unavailable Unavailable Brian Cross MD Unavailable Unavailable Brian Cross MD Unavailable Unavailable Brian Cross MD Unavailable Unavailable Brian Cross MD Unavailable Unavailable Brian Cross MD Unavailable Unavailable Brian Cross MD Unavailable Unavailable Brian Cross MD Unavailable Unavailable Brian Cross MD Unavailable Unavailable Brian Cross MD Unavailable Unavailable Brian Cross MD Unavailable Unavailable Brian Cross MD Unavailable Unavailable Brian Cross MD Unavailable Unavailable Brian Cross MD Unavailable Unavailable Brian Cross MD Unavailable Unavailable Brian Cross MD Unavailable Unavailable Brian Cross MD Unavailable Unavailable Brian Cross MD Unavailable Unavailable Brian Cross MD Unavailable Unavailable Brian Cross MD Unavailable Unavailable Brian Cross MD Unavailable Unavailable Brian Cross MD Unavailable Unavailable Brian Cross MD Unavailable Unavailable Brian Cross MD Unavailable Unavailable Brian Cross MD Unavailable Unavailable Brian Cross MD Unavailable Unavailable Brian Cross MD Unavailable Unavailable Brian Cross MD Unavailable Unavailable Brian Cross MD Unavailable Unavailable Brian Cross MD Unavailable Unavailable Brian Cross MD Unavailable Unavailable Brian Cross MD Unavailable Unavailable Brian Cross MD Unavailable Unavailable Brian Cross MD Unavailable Unavailable Brian Cross MD Unavailable Unavailable Brian Cross MD Unavailable Unavailable Brian Cross MD Unavailable Unavailable Brian Cross MD Unavailable Unavailable Brian Cross MD Unavailable Unavailable Brian Cross MD Unavailable Unavailable Brian Cross MD Unavailable Unavailable Brian Cross MD Unavailable Unavailable Brian Cross MD Unavailable Unavailable Brian Cross MD Unavailable Unavailable Brian Cross MD Unavailable Unavailable Brian Cross MD Unavailable Unavailable Brian Cross MD Unavailable Unavailable Brian Cross MD Unavailable Unavailable Brian Cross MD Unavailable Unavailable Brian Cross MD Unavailable Unavailable Brian Cross MD Unavailable Unavailable Brian Cross MD Unavailable Unavailable Brian Cross MD Unavailable Unavailable Brian Cross MD Unavailable Unavailable Brian Cross MD Unavailable Unavailable Brian Cross MD Unavailable Unavailable Brian Cross MD Unavailable Unavailable Brian Cross MD Unavailable Unavailable Brian Cross MD Unavailable Unavailable Brian Cross MD Unavailable Unavailable Brian Cross MD Unavailable Unavailable Brian Cross MD Unavailable Unavailable Brian Cross MD Unavailable Unavailable Brian Cross MD Unavailable Unavailable Brian Cross MD Unavailable Unavailable Brian Cross MD Unavailable Unavailable Brian Cross MD Unavailable Unavailable Brian Cross MD Unavailable Unavailable Brian Cross MD Unavailable Unavailable CAGE, L ELLIE STATISTICAL ASSISTANT Unavailable Unavailable CAGE, L ELLIE STATISTICAL ASSISTANT Unavailable Unavailable CAGE, L ELLIE STATISTICAL ASSISTANT Unavailable Unavailable CAGE, L ELLIE STATISTICAL ASSISTANT Unavailable Unavailable CAGE, L ELLIE STATISTICAL ASSISTANT Unavailable Unavailable CAGE, L ELLIE STATISTICAL ASSISTANT Unavailable Unavailable CAGE, L ELLIE STATISTICAL ASSISTANT Unavailable Unavailable NILES L ELLIE STATISTICAL ASSISTANT Unavailable Unavailable Yanet Frey MD Unavailable Unavailable Yanet Frey MD Unavailable Unavailable Yanet Frey MD Unavailable Unavailable Yanet Frey MD Unavailable Unavailable Yanet Frey MD Unavailable Unavailable Yanet Frey MD Unavailable Unavailable Yanet Frey MD Unavailable Unavailable Yanet Frey MD Unavailable Unavailable Yanet Frey MD Unavailable Unavailable Yanet Frey MD Unavailable Unavailable Yanet Frey MD Unavailable Unavailable Yanet Frey MD Unavailable Unavailable Yanet Frey MD Unavailable Unavailable Yanet Frey MD Unavailable Unavailable Yanet Frey MD Unavailable Unavailable Yanet Frey MD Unavailable Unavailable Yanet Frey MD Unavailable Unavailable Yanet Frey MD Unavailable Unavailable Yanet Frey MD Unavailable Unavailable Yanet Frey MD Unavailable Unavailable Yanet Frey MD Unavailable Unavailable Yanet Frey MD Unavailable Unavailable Yanet Frey MD Unavailable Unavailable Yanet Frey MD Unavailable Unavailable Yanet Frey MD Unavailable Unavailable Yanet Frey MD Unavailable Unavailable Yanet Frey MD Unavailable Unavailable Yanet Frey MD Unavailable Unavailable Yanet Frey MD Unavailable Unavailable Yanet Frey MD Unavailable Unavailable Yanet Frey MD Unavailable Unavailable Yanet Frey MD Unavailable Unavailable Yanet Frey MD Unavailable Unavailable Yanet Frey MD Unavailable Unavailable Yanet Frey MD Unavailable Unavailable Yaent Frey MD Unavailable Unavailable Yanet Frey MD Unavailable Unavailable Yanet Frey MD Unavailable Unavailable Yanet Frey MD Unavailable Unavailable Yanet Frey MD Unavailable Unavailable Yanet Frey MD Unavailable Unavailable Yanet Frey MD Unavailable Unavailable Yanet Frey MD Unavailable Unavailable Yanet Frey MD Unavailable Unavailable Yanet Frey MD Unavailable Unavailable Yanet Frey MD Unavailable Unavailable Yanet Frey MD Unavailable Unavailable Yanet Frey MD Unavailable Unavailable Yanet Frey MD Unavailable Unavailable Yanet Frey MD Unavailable Unavailable Yanet Frey MD Unavailable Unavailable Yanet Frey MD Unavailable Unavailable ANDREW OROZCO MD Unavailable Unavailable ANDREW OROZCO MD Unavailable Unavailable ANDREW OROZCO MD Unavailable Unavailable ANDREW OROZCO MD Unavailable Unavailable ANDREW OROZCO MD Unavailable Unavailable ANDREW OROCZO MD Unavailable Unavailable ANDREW OROZCO MD Unavailable Unavailable ANDREW OROZCO MD Unavailable Unavailable ANDREW OROZCO MD Unavailable Unavailable ANDREW OROZCO MD Unavailable Unavailable ANDREW OROZCO MD Unavailable Unavailable ANDREW OROZCO MD Unavailable Unavailable ANDREW OROZCO MD Unavailable Unavailable ANDREW OROZCO MD Unavailable Unavailable ANDREW OROZCO MD Unavailable Unavailable ANDREW OROZCO MD Unavailable Unavailable ANDREW OROZCO MD Unavailable Unavailable ANDREW OROZCO MD Unavailable Unavailable ANDREW OROZCO MD Unavailable Unavailable ANDREW OROZCO MD Unavailable Unavailable ANDREW OROZCO MD Unavailable Unavailable ANDREW OROZCO MD Unavailable Unavailable ANDREW OROZCO MD Unavailable Unavailable ANDREW OROZCO MD Unavailable Unavailable ANDREW OROZCO MD Unavailable Unavailable ANDREW OROZCO MD Unavailable Unavailable DOUG PEREZ MD Unavailable Unavailable DOUG PEREZ MD Unavailable Unavailable DOUG PEREZ MD Unavailable Unavailable DOUG PEREZ MD Unavailable Unavailable DOUG PEREZ MD Unavailable Unavailable DOUG PEREZ MD Unavailable Unavailable DOUG PEREZ MD Unavailable Unavailable DOUG PEREZ MD Unavailable Unavailable DOUG PEREZ MD Unavailable Unavailable DOUG PEREZ MD Unavailable Unavailable DOUG PEREZ MD Unavailable Unavailable DOUG PEREZ MD Unavailable Unavailable DOUG PEREZ MD Unavailable Unavailable DOUG PEREZ MD Unavailable Unavailable DOUG PEREZ MD Unavailable Unavailable JOSE U MILTONJAYME RONDON Unavailable Unavailable GABRIELAUN U MILTONJAYME RONDNO Unavailable Unavailable HUMYOSELINUN U MILTONJAYME RONDON Unavailable Unavailable GABRIELAUN U MILTONJAYME RONDON Unavailable Unavailable CAMELIAAYUN U MILTONJAYME RONDON Unavailable Unavailable GABRIELAUN U MILTONJAYME RONDON Unavailable Unavailable HUMAYUN U MILTONJAYME RONDON Unavailable Unavailable HUMAYUN U MILTONJAYME RONDON Unavailable Unavailable HUMAYUN U MILTONJAYME RONDON Unavailable Unavailable HUMAYUN U MILTONJAYME RONDON Unavailable Unavailable HUMAYUN U MILTON Unavailable Unavailable HUMAYUN U MILTON MD Unavailable Unavailable HUMAYUN, U MILTON Unavailable Unavailable HUMAYUN, U MILTON Unavailable Unavailable HUMAYUN, U MILTON Unavailable Unavailable HUMAYUN, U MILTON MD Unavailable Unavailable HUMAYUN, U MILTON Unavailable Unavailable HUMAYUN U MILTON MD Unavailable Unavailable HUMAYUN, U MILTON Unavailable Unavailable HUMAYUN, U MILTON Unavailable Unavailable HUMAYUN, U MILTON Unavailable Unavailable HUMAYUN, U MILTON MD Unavailable Unavailable HUMAYUN, U MILTON MD Unavailable Unavailable HUMAYUN, U MILTON Unavailable Unavailable HUMAYUN, U MILTON MD Unavailable Unavailable Karin GARCIA MD Unavailable Unavailable Karin GARCIA MD Unavailable Unavailable Karin GARCIA MD Unavailable Unavailable Karin GARCIA MD Unavailable Unavailable Karin GARCIA MD Unavailable Unavailable Karin GARCIA MD Unavailable Unavailable Karin GARCIA MD Unavailable Unavailable Karin GARCIA MD Unavailable Unavailable Karin GARCIA MD Unavailable Unavailable Peter Guo MD Unavailable Unavailable Peter Guo MD Unavailable Unavailable Peter Guo MD Unavailable Unavailable Peter Guo MD Unavailable Unavailable Peter Guo MD Unavailable Unavailable Peter Guo MD Unavailable Unavailable Peter Guo MD Unavailable Unavailable Peter Guo MD Unavailable Unavailable Peter Guo MD Unavailable Unavailable Peter Guo MD Unavailable Unavailable Peter Guo MD Unavailable Unavailable Peter Guo MD Unavailable Unavailable Peter Guo MD Unavailable Unavailable Peter Guo MD Unavailable Unavailable Peter Guo MD Unavailable Unavailable Peter Guo MD Unavailable Unavailable Peter Guo MD Unavailable Unavailable Peter Guo MD Unavailable Unavailable Peter Guo MD Unavailable Unavailable Peter Guo MD Unavailable Unavailable Peter Guo MD Unavailable Unavailable Peter Guo MD Unavailable Unavailable Peter Guo MD Unavailable Unavailable Peter Guo MD Unavailable Unavailable Peter Guo MD Unavailable Unavailable Peter Guo MD Unavailable Unavailable Peter Guo MD Unavailable Unavailable Peter Guo MD Unavailable Unavailable Peter Guo MD Unavailable Unavailable Peter Guo MD Unavailable Unavailable Peter Guo MD Unavailable Unavailable Peter Guo MD Unavailable Unavailable Peter Guo MD Unavailable Unavailable Peter Guo MD Unavailable Unavailable Peter Guo MD Unavailable Unavailable Peter Guo MD Unavailable Unavailable Peter Guo MD Unavailable Unavailable Peter Guo MD Unavailable Unavailable Peter Guo MD Unavailable Unavailable Slezka, Vojtech MD Unavailable Unavailable Peter Guo MD Unavailable Unavailable Peter Guo MD Unavailable Unavailable Peter Guo MD Unavailable Unavailable Peter Guo MD Unavailable Unavailable Peter Guo MD Unavailable Unavailable Peter Guo MD Unavailable Unavailable Peter Guo MD Unavailable Unavailable Peter Guo MD Unavailable Unavailable Peter Guo MD Unavailable Unavailable Peter Guo MD Unavailable Unavailable Peter Guo MD Unavailable Unavailable Peter Guo MD Unavailable Unavailable Peter Guo MD Unavailable Unavailable Peter Guo MD Unavailable Unavailable Peter Guo MD Unavailable Unavailable Peter Guo MD Unavailable Unavailable Peter Guo MD Unavailable Unavailable Peter Guo MD Unavailable Unavailable Peter Guo MD Unavailable Unavailable Fab Carney MD Unavailable Unavailable Fab Carney MD Unavailable Unavailable Fab Carney MD Unavailable Unavailable Fab Carney MD Unavailable Unavailable Fab Carney MD Unavailable Unavailable Fab Carney MD Unavailable Unavailable Fab Carney MD Unavailable Unavailable Fab Carney MD Unavailable Unavailable Fab Carney MD Unavailable Unavailable Fab Carney MD Unavailable Unavailable Fab Carney MD Unavailable Unavailable Fab Carnye MD Unavailable Unavailable Fab Carney MD Unavailable Unavailable AMIDONBrian JEFF DO Unavailable Unavailable AMIDON, Brian JEFF DO Unavailable Unavailable AMIDONBrian JEFF DO Unavailable Unavailable AMIDON D JEFF DO Unavailable Unavailable AMIDON D JEFF DO Unavailable Unavailable AMIDON, D JEFF DO Unavailable Unavailable AMIDON, D JEFF DO Unavailable Unavailable AMIDON, D JEFF DO Unavailable Unavailable AMIDON, D JEFF DO Unavailable Unavailable AMIDON, D JEFF DO Unavailable Unavailable AMIDON, D JEFF DO Unavailable Unavailable AMIDON, D JEFF DO Unavailable Unavailable AMIDON, D JEFF DO Unavailable Unavailable AMIDON, D JEFF DO Unavailable Unavailable AMIDON, D JEFF DO Unavailable Unavailable AMIDON, D JEFF DO Unavailable Unavailable AMIDON, D JEFF DO Unavailable Unavailable AMIDON, D JEFF DO Unavailable Unavailable AMIDON, D JEFF DO Unavailable Unavailable AMIDON, D JEFF DO Unavailable Unavailable AMIDON, D JEFF DO Unavailable Unavailable AMIDON, D JEFF DO Unavailable Unavailable AMIDON, D JEFF DO Unavailable Unavailable AMIDON, D JEFF DO Unavailable Unavailable AMIDON, D JEFF DO Unavailable Unavailable AMIDON, D JEFF DO Unavailable Unavailable AMIDON, D JEFF DO Unavailable Unavailable AMIDON, D JEFF DO Unavailable Unavailable AMIDON, D JEFF DO Unavailable Unavailable AMIDON, D JEFF DO Unavailable Unavailable AMIDON, D JEFF DO Unavailable Unavailable AMIDON, D JEFF DO Unavailable Unavailable AMIDON, D JEFF DO Unavailable Unavailable AMIDON, D JEFF DO Unavailable Unavailable AMIDON, D JEFF DO Unavailable Unavailable AMIDON, D JEFF DO Unavailable Unavailable AMIDON, D JEFF DO Unavailable Unavailable AMIDON, D JEFF DO Unavailable Unavailable AMIDON, D JEFF DO Unavailable Unavailable AMIDON, D JEFF DO Unavailable Unavailable AMIDON, D JEFF DO Unavailable Unavailable AMIDON, D JEFF DO Unavailable Unavailable AMIDON, D JEFF DO Unavailable Unavailable AMIDON, D JEFF DO Unavailable Unavailable AMIDON, D JEFF DO Unavailable Unavailable AMIDON, D JEFF DO Unavailable Unavailable AMIDON, D JEFF DO Unavailable Unavailable AMIDON, D JEFF DO Unavailable Unavailable AMIDON, D JEFF DO Unavailable Unavailable AMIDON, D JEFF DO Unavailable Unavailable AMIDON, D JEFF DO Unavailable Unavailable AMIDON, D JEFF DO Unavailable Unavailable AMIDON, D JEFF DO Unavailable Unavailable AMIDON, D JEFF DO Unavailable Unavailable AMIDON, D JEFF DO Unavailable Unavailable AMIDON, D JEFF DO Unavailable Unavailable AMIDON, D JEFF DO Unavailable Unavailable AMIDON, D JEFF DO Unavailable Unavailable AMIDON, D JEFF DO Unavailable Unavailable AMIDON, D JEFF DO Unavailable Unavailable AMIDON, D JEFF DO Unavailable Unavailable AMIDON, D JEFF DO Unavailable Unavailable AMIDON, D JEFF DO Unavailable Unavailable AMIDON, D JEFF DO Unavailable Unavailable AMIDON, D JEFF DO Unavailable Unavailable AMIDON, D JEFF DO Unavailable Unavailable AMIDON, D JEFF DO Unavailable Unavailable AMIDON, D JEFF DO Unavailable Unavailable Alyx MORFIN MD Unavailable Unavailable Alyx MORFIN MD Unavailable Unavailable Alyx MORFIN MD Unavailable Unavailable Marcelo Martins MD Unavailable Unavailable Marcelo Martins MD Unavailable Unavailable Marcelo Martins MD Unavailable Unavailable Marcelo Martins MD Unavailable Unavailable Marcelo Martins MD Unavailable Unavailable Marcelo Martins MD Unavailable Unavailable Marcelo Martins MD Unavailable Unavailable Marcelo Martins MD Unavailable Unavailable Adrianna Martinsa MD Unavailable Unavailable Adrianna Martinsa MD Unavailable Unavailable Marcelo Martins MD Unavailable Unavailable Marcelo Martins MD Unavailable Unavailable Marcelo Martins MD Unavailable Unavailable Adrianna Martinsa MD Unavailable Unavailable Adrianna Martinsa MD Unavailable Unavailable Marcelo Martins MD Unavailable Unavailable Marcelo Maritns MD Unavailable Unavailable Hamad, Efrem MD Unavailable Unavailable Hamad, Efrem MD Unavailable Unavailable Hamad, Efrem MD Unavailable Unavailable Hamad, Efrem MD Unavailable Unavailable Hamad, Efrem MD Unavailable Unavailable Hamad, Efrem MD Unavailable Unavailable Hamad, Efrem MD Unavailable Unavailable Hamad, Efrem MD Unavailable Unavailable Hamad, Efrem MD Unavailable Unavailable Hamad, Efrem MD Unavailable Unavailable Hamad, Efrem MD Unavailable Unavailable Hamad, Efrem MD Unavailable Unavailable Hamad, Efrem MD Unavailable Unavailable Hamad, Efrem MD Unavailable Unavailable Hamad, Efrem MD Unavailable Unavailable Hamad, Efrem MD Unavailable Unavailable Hamad, Efrem MD Unavailable Unavailable Hamad, Efrem MD Unavailable Unavailable Hamad, Efrem MD Unavailable Unavailable Hamad, Efrem MD Unavailable Unavailable EDILMA MAIN MD Unavailable Unavailable EDILMA MAIN MD Unavailable Unavailable EDILMA MAIN MD Unavailable Unavailable EDILMA MAIN MD Unavailable Unavailable EDILMA MAIN MD Unavailable Unavailable EDILMA MAIN MD Unavailable Unavailable EDILMA MAIN MD Unavailable Unavailable EDILMA MAIN MD Unavailable Unavailable EDILMA MAIN MD Unavailable Unavailable LONASSEDILMA MENDOZA MD Unavailable Unavailable SAYDA MAINAYANI Unavailable Unavailable EDILMA MAIN MD Unavailable Unavailable EDILMA MAIN MD Unavailable Unavailable EDILMA MAIN MD Unavailable Unavailable EDILMA MAIN MD Unavailable Unavailable EDILMA MAIN MD Unavailable Unavailable EDILMA MAIN MD Unavailable Unavailable EDILMA MAIN MD Unavailable Unavailable EDILMA MAIN MD Unavailable Unavailable EDILMA MAIN MD Unavailable Unavailable EDILMA MAIN MD Unavailable Unavailable EDILMA MAIN MD Unavailable Unavailable EDILMA MAIN MD Unavailable Unavailable EDILMA MAIN MD Unavailable Unavailable EDILMA MAIN MD Unavailable Unavailable EDILMA MAIN MD Unavailable Unavailable NONE MD, MD ON NONE Unavailable Unavailable SANDY RONDON, MD Brian WERNER Unavailable Unavailable PILO RAM MD Unavailable Unavailable PILO RAM MD Unavailable Unavailable PILO RAM MD Unavailable Unavailable PILO RAM MD Unavailable Unavailable PILO RAM MD Unavailable Unavailable PILO RAM MD Unavailable Unavailable PILO RAM MD Unavailable Unavailable PILO RAM MD Unavailable Unavailable PILO RAM MD Unavailable Unavailable PILO RAM MD Unavailable Unavailable PILO RAM MD Unavailable Unavailable PILO RAM MD Unavailable Unavailable PILO RAM MD Unavailable Unavailable PILO RAM MD Unavailable Unavailable PILO RAM MD Unavailable Unavailable PILO RAM MD Unavailable Unavailable PILO RAM MD Unavailable Unavailable PILO RAM MD Unavailable Unavailable PILO RAM MD Unavailable Unavailable PILO RAM MD Unavailable Unavailable PILO RAM MD Unavailable Unavailable PILO RAM MD Unavailable Unavailable PILO RAM MD Unavailable Unavailable PILO RAM MD Unavailable Unavailable PILO RAM MD Unavailable Unavailable PILO RAM MD Unavailable Unavailable PILO RAM MD Unavailable Unavailable PILO RAM MD Unavailable Unavailable PILO RAM MD Unavailable Unavailable PILO RAM MD Unavailable Unavailable PILO RAM MD Unavailable Unavailable PILO RAM MD Unavailable Unavailable PILO RAM MD Unavailable Unavailable PILO RAM MD Unavailable Unavailable PILO RAM MD Unavailable Unavailable PILO RAM MD Unavailable Unavailable PILO RAM MD Unavailable Unavailable PILO RAM MD Unavailable Unavailable PILO RAM MD Unavailable Unavailable PILO RAM MD Unavailable Unavailable PILO RAM MD Unavailable Unavailable PILO RAM MD Unavailable Unavailable PILO RAM MD Unavailable Unavailable PILO RAM MD Unavailable Unavailable Re-disclosure Warning The records that you are about to access may contain information from federally-assisted alcohol or drug abuse programs. If such information is present, then the following federally mandated warning applies: This information has been disclosed to you from records protected by federal confidentiality rules (42 CFR part 2). The federal rules prohibit you from making any further disclosure of this information unless further disclosure is expressly permitted by the written consent of the person to whom it pertains or as otherwise permitted by 42 CFR part 2. A general authorization for the release of medical or other information is NOT sufficient for this purpose. The Federal rules restrict any use of the information to criminally investigate or prosecute any alcohol or drug abuse patient.The records that you are about to access may contain highly sensitive health information, the redisclosure of which is protected by Article 27-F of the [facility] Public Health law. If you continue you may have access to information: Regarding HIV / AIDS; Provided by facilities licensed or operated by the [facility] Office of Mental Health; or Provided by the [facility] Office for People With Developmental Disabilities. If such information is present, then the following [facility] mandated warning applies: This information has been disclosed to you from confidential records which are protected by state law. State law prohibits you from making any further disclosure of this information without the specific written consent of the person to whom it pertains, or as otherwise permitted by law. Any unauthorized further disclosure in violation of state law may result in a fine or senior living sentence or both. A general authorization for the release of medical or other information is NOT sufficient authorization for further disc losure. Allergies and Adverse Reactions Type Description Substance Reaction Status Data Source(s ) Propensity to adverse reactions NO ALLERGIES ON FILE NO ALLERGIES ON FILE [facility] Drug allergy No Known Drug Allergies No Known Drug Allergies [facility] Allergy to substance Allergy to substance Allergy to substance [place] ([facility]) Encounters Encounter Providers Location Date Indications Data Source(s ) Tyrone Cross MD: [address] [place] [address], Ph. Attender: Tyrone Cross MD [facility] 01/06/2021 12:00:00 AM EDT [facility] ([facility]) Tyrone Cross MD: [address] [place] [address], Ph. Attender: Tyrone Cross MD [facility] 01/01/2021 12:00:00 AM EDT [facility] ([facility]) Tyrone Cross MD: [address] [place] [address], Ph. Attender: Tyrone Cross MD [facility] 01/01/2021 12:00:00 AM EDT [facility] ([facility]) Tyrone Cross MD: [address] [place] [address], Ph. Attender: Tyrone Cross MD [facility] 01/01/2021 12:00:00 AM EDT [facility] ([facility]) Tyrone Cross MD: [address] [place] [address], Ph. Attender: Tyrone Cross MD [facility] 12/31/2020 12:00:00 AM EDT [facility] ([facility]) Tyrone Cross MD: [address] [place] [phone], Ph. Attender: Tyrone Cross MD [facility] 12/31/2020 12:00:00 AM EDT [facility] ([facility]) Tyrone Cross MD: [address] [place] [address], Ph. Attender: Tyrone Cross MD [facility] 12/31/2020 12:00:00 AM EDT [facility] ([facility]) Tyrone Cross MD: [address] [place] [address], Ph. Attender: Tyrone Cross MD [facility] 12/30/2020 12:00:00 AM EDT [facility] ([facility]) Tyrone Cross MD: [address] [place] [address], Ph. Attender: Tyrone Cross MD [facility] 12/30/2020 12:00:00 AM EDT [facility] ([facility]) Tyrone Cross MD: [address] [place] [address], Ph. Attender: Tyrone Cross MD [facility] 12/30/2020 12:00:00 AM EDT [facility] ([facility]) Tyrone Cross MD: [address] [place] [address], Ph. Attender: Tyrone Cross MD [facility] 12/30/2020 12:00:00 AM EDT [facility] ([facility] [place]) Unknown [address] [place] [id number] 12/23/2020 12:00:00 AM EDT eCW1 ([facility]) Tyrone Cross MD: [address] [place] [address], Ph. Attender: Tyrone Cross MD [facility] 12/22/2020 12:00:00 AM EDT CHARAN ([facility]) Tyrone Cross MD: [address] [place] [address], Ph. Attender: yTrone Cross MD [facility] 12/22/2020 12:00:00 AM EDT CHARAN ([facility]) Tyrone Cross MD: [address] [place] [address], Ph. Attender: Tyrone Cross MD [facility] 12/22/2020 12:00:00 AM EDT CHARAN ([facility]) Tyrone Cross MD: [address] [place] [address], Ph. Attender: Tyrone Cross MD [facility] 12/22/2020 12:00:00 AM EDT CHARAN ([facility]) Tyrone Cross MD: [address] [place] [address], Ph. Attender: Tyrone Cross MD [facility] 12/22/2020 12:00:00 AM EDT CHARAN ([facility]) Tyrone Cross MD: [address] [place] [address], Ph. Attender: Tyrone Cross MD [facility] 12/15/2020 12:00:00 AM EDT CHARAN ([facility]) Tyrone Cross MD: [address] [place] [address], Ph. Attender: Tyrone Cross MD [facility] 12/15/2020 12:00:00 AM EDT CHARAN ([facility]) Tyrone Cross MD: [address] [place] [address], Ph. Attender: Tyrone Cross MD [facility] 12/15/2020 12:00:00 AM EDT CHARAN ([facility]) Tyrone Cross MD: [address] [place] [address], Ph. Attender: Tyrone Cross MD [facility] 12/15/2020 12:00:00 AM EDT CHARAN ([facility]) Tyrone Cross MD: [address] [place] [address], Ph. Attender: Tyrone Cross MD [facility] 12/15/2020 12:00:00 AM EDT CHARAN ([facility]) Tyrone Cross MD: [address] [place] [address], Ph. Attender: Tyrone Cross MD [facility] 12/15/2020 12:00:00 AM EDT CHARAN ([facility]) Outpatient [address] [facility] [address] 12/09/2020 12:00:00 AM EDT eCW1 ([facility]) Tyrone Cross MD: [address] [place] [address], Ph. Attender: Tyrone Cross MD [facility] 12/08/2020 12:00:00 AM EDT CHARAN ([facility]) Tyrone Cross MD: [address] [place] [address], Ph. Attender: Tyrone Cross MD [facility] 12/08/2020 12:00:00 AM EDT CHARAN ([facility]) Tyrone Cross MD: [address] [place] [address], Ph. Attender: Tyrone Cross MD [facility] 12/08/2020 12:00:00 AM EDT CHARAN ([facility]) Tyrone Cross MD: [address] [place] [address], Ph. Attender: Tyrone Cross MD [facility] 12/08/2020 12:00:00 AM EDT CHARAN ([facility]) Tyrone Cross MD: [address] [place] [address], Ph. Attender: Tyrone Cross MD [facility] 12/08/2020 12:00:00 AM EDT CHARAN ([facility]) Tyrone Cross MD: [address] [place] [address], Ph. Attender: Tyrone Cross MD [facility] 12/08/2020 12:00:00 AM EDT CHARAN ([facility]) Tyrone Cross MD: [address] [place] [address], Ph. Attender: Tyrone Cross MD [facility] 12/08/2020 12:00:00 AM EDT CHARAN ([facility]) Tyrone Cross MD: [address] [place] [address], Ph. Attender: Tyrone Cross MD [facility] 12/01/2020 12:00:00 AM EDT CHARAN ([facility]) Tyrone Cross MD: [address] [place] [address], Ph. Attender: Tyrone Cross MD [facility] 12/01/2020 12:00:00 AM EDT CHARAN ([facility]) Tyrone Cross MD: [address] [place] [address], Ph. Attender: Tyrone Cross MD [facility] 12/01/2020 12:00:00 AM EDT CHARAN ([facility]) Tyrone Cross MD: [address] [place] [address], Ph. Attender: Tyrone Cross MD [facility] 12/01/2020 12:00:00 AM EDT CHARAN ([facility]) Tyrone Cross MD: [address] [place] [address], Ph. Attender: Tyrone Cross MD [facility] 12/01/2020 12:00:00 AM EDT CHARAN ([facility]) Tyrone Cross MD: [address] [place] [address], Ph. Attender: Tyrone Cross MD [facility] 12/01/2020 12:00:00 AM EDT CHARAN ([facility]) Tyrone Cross MD: [address] [place] [address], Ph. Attender: Tyrone Cross MD [facility] 12/01/2020 12:00:00 AM EDT CHARAN ([facility]) Tyrone Cross MD: [address] [place] [address], Ph. Attender: Tyrone Cross MD [facility] 12/01/2020 12:00:00 AM EDT CHARAN ([facility]) Unknown [address] [place] [phone] 11/25/2020 12:00:00 AM EDT eCW1 ([facility]) Tyrone Cross MD: [address] [place] [address], Ph. Attender: Tyrone Cross MD [facility] 11/24/2020 12:00:00 AM EDT CHARAN ([facility]) Tyrone Cross MD: [address] [place] [address], Ph. Attender: Tyrone Cross MD [facility] 11/24/2020 12:00:00 AM EDT CHARAN ([facility]) Tyrone Cross MD: [address] [place] [address], Ph. Attender: Tyrone Cross MD [facility] 11/24/2020 12:00:00 AM EDT CHARAN ([facility]) Tyrone Cross MD: [address] [place] [address], Ph. Attender: Tyrone Cross MD [facility] 11/24/2020 12:00:00 AM EDT CHARAN ([facility]) Tyrone Cross MD: [address] [place] [address], Ph. Attender: Tyrone Cross MD [facility] 11/24/2020 12:00:00 AM EDT CHARAN ([facility]) Tyrone Cross MD: [address] [place] [address], Ph. Attender: Tyrone Cross MD [facility] 11/24/2020 12:00:00 AM EDT CHARAN ([facility]) Tyrone Cross MD: [address] [place] [address], Ph. Attender: Tyrone Cross MD [facility] 11/24/2020 12:00:00 AM EDT CHARAN ([facility]) Tyrone Cross MD: [address] [place] [address], Ph. Attender: Tyrone Cross MD [facility] 11/24/2020 12:00:00 AM EDT CHARAN ([facility]) Outpatient Attender: Peter Guo MDReferrer: Emma Frey MD [email or web address] 11/18/2020 12:00:00 AM EDT - 11/18/2020 04:21:42 PM EDT [facility] Unknown [address] [facility] [id number] 10/28/2020 12:00:00 AM EDT eCW1 ([facility]) Tyrone Cross MD: [address] [place] [address], Ph. Attender: Tyrone Cross MD [facility] 10/24/2020 12:00:00 AM EDT CHARAN ([facility]) Tyrone Cross MD: [address] [place] [address], Ph. Attender: Tyrone Cross MD [facility] 10/24/2020 12:00:00 AM EDT CHARAN ([facility]) Tyrone Cross MD: [address] [place] [address], Ph. Attender: Tyrone Cross MD [facility] 10/24/2020 12:00:00 AM EDT CHARAN ([facility]) Tyrone Cross MD: [address] [place] [address], Ph. Attender: Tyrone Cross MD [facility] 10/24/2020 12:00:00 AM EDT CHARAN ([facility]) Tyrone Cross MD: [address] [place] [address], Ph. Attender: Tyrone Cross MD [facility] 10/24/2020 12:00:00 AM EDT CHARAN ([facility]) Tyrone Cross MD: [address] [place] [address], Ph. Attender: Tyrone Cross MD [facility] 10/24/2020 12:00:00 AM EDT CHARAN ([facility]) Tyrone Cross MD: [address] [place] [address], Ph. Attender: Tyrone Cross MD [facility] 10/24/2020 12:00:00 AM EDT CHARAN ([facility]) Tyrone Cross MD: [address] [place] [address], Ph. Attender: Tyrone Cross MD [facility] 10/24/2020 12:00:00 AM EDT CHARAN ([facility]) Tyrone Cross MD: [address] [place] [address], Ph. Attender: Tyrone Cross MD CT - [facility] 10/24/2020 12:00:00 AM EDT CHARAN ([facility]) Unknown [address] [facility] [place] [address] 10/09/2020 12:00:00 AM EDT eCW1 ([facility]) Unknown [address] [facility] [place] [address] 09/29/2020 12:00:00 AM EDT eCW1 ([facility]) Unknown [address] [facility] [place] [address] 09/26/2020 12:00:00 AM EDT eCW1 ([facility]) Unknown [address] [facility] [place] [address] 08/25/2020 12:00:00 AM EDT eCW1 ([facility]) Unknown [address] [facility] [place] [address] 08/25/2020 12:00:00 AM EDT eCW1 ([facility]) Outpatient [address] [facility] [place] [address] 08/12/2020 12:00:00 AM EDT eCW1 ([facility]) Unknown [address] [facility] [place] [address] 08/07/2020 12:00:00 AM EDT eCW1 ([facility]) Unknown [address] [facility] [place] [address] 08/05/2020 12:00:00 AM EDT eCW1 ([facility]) Unknown [address] [facility] [place] [address] 08/05/2020 12:00:00 AM EDT eCW1 ([facility]) Outpatient [address] [facility] [place] [address] 08/04/2020 12:00:00 AM EDT eCW1 ([facility]) Unknown [address] [facility] [address] 07/01/2020 12:00:00 AM EDT eCW1 ([facility]) Unknown [address] [facility] [address] 06/24/2020 12:00:00 AM EDT eCW1 ([facility]) Outpatient [address] [facility] [address] 05/20/2020 12:00:00 AM EST eCW1 ([facility]) Unknown [address] [facility] [address] 05/16/2020 12:00:00 AM EST eCW1 ([facility]) Unknown [address] [facility] [address] 05/07/2020 12:00:00 AM EST eCW1 ([facility]) Unknown [address] [facility] [address] 04/25/2020 12:00:00 AM EST eCW1 ([facility]) Outpatient [address] [facility] [address] 04/22/2020 12:00:00 AM EST eCW1 ([facility]) OUTPATIENT 04/18/2020 01:29:31 PM [facility] Attender: YAMILEX MORFIN MD 04/18/2020 12:38:23 PM [facility] OUTPATIENT 04/16/2020 03:44:47 PM [facility] SPECIMEN Attender: JEFF FULLEReferrer: JEFF ECHAVARRIA DO 2E-S52 04/16/2020 01:00:00 AM EST - 04/16/2020 11:59:00 PM [facility] Patient discharged. OUTPATIENT Attender: YAMILEX MORFIN MD 04/14/2020 05:12:06 PM [facility] Outpatient Attender: ELLIE FAIReferrer: ELLIE ALVAREZ STATISTICAL ASSISTANT 2E-HL 04/14/2020 05:29:00 AM EST - 04/14/2020 11:59:00 PM [facility] Patient discharged. SPECIMEN Attender: JEFF FULLEReferrer: JEFF FARIHA ECHAVARRIA DO 2E-S52 04/09/2020 11:00:00 PM EST - 04/09/2020 11:59:00 PM [facility] Patient discharged. Outpatient Attender: ELLIE CAGE NPReferrer: ELLIE ALVAREZ NP 2E-HL 04/09/2020 05:36:00 AM EST - 04/09/2020 10:59:00 PM [facility] Patient discharged. Outpatient Attender: ELLIE CAGE NPReferrer: ELLIE ALVAREZ NP 2E-HL 04/02/2020 05:50:00 PM [facility] - 04/02/2020 11:59:00 PM [facility] Patient discharged. SPECIMEN Attender: JEFF FULLEReferrer: JEFF FARIHA ECHAVARRIA DO 2E-S52 04/02/2020 01:00:00 AM [facility] - 04/02/2020 05:49:00 PM [facility] Patient discharged. OUTPATIENT Attender: YAMILEX MORFIN MDReferrer: YAMILEX Lopez MD 04/01/2020 08:28:34 AM [facility] - 04/01/2020 01:01:06 PM [facility] Attender: YAMILEX MORFIN MD 03/27/2020 09:31:39 AM [facility] SPECIMEN Attender: JEFF YOUNG DOReferrer: JEFF ECHAVRARIA DO 2E-S52 03/26/2020 11:00:00 PM [facility] - 03/26/2020 11:59:00 PM [facility] Patient discharged. Outpatient Attender: ELLIE CAGE NPReferrer: ELLIE ALVAREZ NP 2E-HL 03/24/2020 06:00:00 AM [facility] - 03/24/2020 11:59:00 PM [facility] Patient discharged. OUTPATIENT 03/20/2020 01:13:44 PM [facility] SPECIMEN Attender: ELLIE CAGE NPReferrer: ELLIE ALVAREZ NP 2E-S53 03/19/2020 05:43:00 AM EST - 03/19/2020 11:59:00 PM [facility] Patient discharged. OUTPATIENT Attender: YAMILEX MORFIN MDAttender: EDIMLA VASQUEZ MD 03/18/2020 09:18:00 AM EST - 03/18/2020 11:58:17 AM [facility] SPECIMEN Attender: JEFF YOUNG DOReferrer: JEFFCHENG ECHAVARRIA DO 2E-S53 03/12/2020 06:08:00 PM EST - 03/12/2020 11:59:00 PM [facility] Patient discharged. Outpatient Attender: ELLIE CAGE NPReferrer: ELLIE ALVAREZ NP 2E-HL 03/12/2020 06:16:00 AM EST - 03/12/2020 06:07:00 PM [facility] Patient discharged. SPECIMEN Attender: JEFF YOUNG DOReferrer: JEFF ECHAVARRIA DO 2E-S53 03/05/2020 05:15:00 AM EST - 03/05/2020 11:59:00 PM [facility] Patient discharged. Inpatient Attender: Marcelo flores MDAttender: ANDREW OROZCO MDAttender: MILTON GARCIA MDAttender: Efrem Boudreaux MDAttender: MD ALPHONSO DELGADO MDAttender: Bhavik Carney MDAttender: NONE NONE MDAdmitter: MD ALPHONSO DELGADO MDConsultant: PILO RAM MDConsultant: DOUG PEREZ MDConsultant: MD ALPHONSO DELGADO MD OP-2E 02/13/2020 08:11:00 PM EST - 02/27/2020 05:00:00 PM [facility] Patient discharged. SPECIMEN Attender: ELLIE CAGE NPReferrer: ELLIE ALVAREZ NP 2E-S53 02/12/2020 10:41:00 AM EST - 02/12/2020 11:59:00 PM [facility] Patient discharged. Immunizations Vaccine Date Status Description Data Source(s) Hep A, adult 08/04/2020 11:33:00 AM EDT completed e CW1 ([facility]) Hep A, adult 08/04/2020 11:33:00 AM EDT completed e CW1 ([facility]) Hep A, adult 08/04/2020 11:33:00 AM EDT completed e CW1 ([facility]) Hep A, adult 08/04/2020 11:33:00 AM EDT completed e CW1 ([facility]) Hep A, adult 08/04/2020 11:33:00 AM EDT completed e CW1 ([facility]) Hep A, adult 08/04/2020 11:33:00 AM EDT completed e CW1 ([facility]) Hep A, adult 08/04/2020 11:33:00 AM EDT completed e CW1 ([facility]) Hep A, adult 08/04/2020 11:33:00 AM EDT completed e CW1 ([facility]) Hep A, adult 08/04/2020 11:33:00 AM EDT completed e CW1 ([facility]) Hep A, adult 08/04/2020 11:33:00 AM EDT completed e CW1 ([facility]) Hep A, adult 08/04/2020 11:33:00 AM EDT completed e CW1 ([facility]) Hep A, adult 08/04/2020 11:33:00 AM EDT completed e CW1 ([facility]) Hep A, adult 08/04/2020 11:33:00 AM EDT completed e CW1 ([facility]) Hep A, adult 08/04/2020 11:33:00 AM EDT completed e CW1 ([facility]) As of November 1998, a 2-dose hepatitis B schedule for adolescents (11-15 year olds) was FDA approved for [employer]'s Recombivax HB adult formulation. Use code 43 for the 2-dose. This code should be used for any use of standard adult formulation of hepatitis B vaccine. 02/11/2020 10:15:00 PM EST completed eCW1 ([facility]) As of November 1998, a 2-dose hepatitis B schedule for adolescents (11-15 year olds) was FDA approved for [employer]'s Recombivax HB adult formulation. Use code 43 for the 2-dose. This code should be used for any use of standard adult formulation of hepatitis B vaccine. 02/11/2020 10:15:00 PM EST completed eCW1 ([facility]) As of November 1998, a 2-dose hepatitis B schedule for adolescents (11-15 year olds) was FDA approved for [employer]'s Recombivax HB adult formulation. Use code 43 for the 2-dose. This code should be used for any use of standard adult formulation of hepatitis B vaccine. 02/11/2020 10:15:00 PM EST completed eCW1 ([facility]) As of November 1998, a 2-dose hepatitis B schedule for adolescents (11-15 year olds) was FDA approved for [employer]'s Recombivax HB adult formulation. Use code 43 for the 2-dose. This code should be used for any use of standard adult formulation of hepatitis B vaccine. 02/11/2020 10:15:00 PM EST completed eCW1 ([facility]) As of November 1998, a 2-dose hepatitis B schedule for adolescents (11-15 year olds) was FDA approved for [employer]'s Recombivax HB adult formulation. Use code 43 for the 2-dose. This code should be used for any use of standard adult formulation of hepatitis B vaccine. 02/11/2020 10:15:00 PM EST completed eCW1 ([facility]) As of November 1998, a 2-dose hepatitis B schedule for adolescents (11-15 year olds) was FDA approved for [employer]'s Recombivax HB adult formulation. Use code 43 for the 2-dose. This code should be used for any use of standard adult formulation of hepatitis B vaccine. 02/11/2020 10:15:00 PM EST completed eCW1 ([facility]) As of November 1998, a 2-dose hepatitis B schedule for adolescents (11-15 year olds) was FDA approved for [employer]'s Recombivax HB adult formulation. Use code 43 for the 2-dose. This code should be used for any use of standard adult formulation of hepatitis B vaccine. 02/11/2020 10:15:00 PM EST completed eCW1 ([facility]) As of November 1998, a 2-dose hepatitis B schedule for adolescents (11-15 year olds) was FDA approved for [employer]'s Recombivax HB adult formulation. Use code 43 for the 2-dose. This code should be used for any use of standard adult formulation of hepatitis B vaccine. 02/11/2020 10:15:00 PM EST completed eCW1 ([facility]) As of November 1998, a 2-dose hepatitis B schedule for adolescents (11-15 year olds) was FDA approved for [employer]'s Recombivax HB adult formulation. Use code 43 for the 2-dose. This code should be used for any use of standard adult formulation of hepatitis B vaccine. 02/11/2020 10:15:00 PM EST completed eCW1 ([facility]) As of November 1998, a 2-dose hepatitis B schedule for adolescents (11-15 year olds) was FDA approved for Merck's Recombivax HB adult formulation. Use code 43 for the 2-dose. This code should be used for any use of standard adult formulation of hepatitis B vaccine. 02/11/2020 10:15:00 PM EST completed eCW1 ([facility]) As of November 1998, a 2-dose hepatitis B schedule for adolescents (11-15 year olds) was FDA approved for Merck's Recombivax HB adult formulation. Use code 43 for the 2-dose. This code should be used for any use of standard adult formulation of hepatitis B vaccine. 02/11/2020 10:15:00 PM EST completed eCW1 ([facility]) As of November 1998, a 2-dose hepatitis B schedule for adolescents (11-15 year olds) was FDA approved for Merck's Recombivax HB adult formulation. Use code 43 for the 2-dose. This code should be used for any use of standard adult formulation of hepatitis B vaccine. 02/11/2020 10:15:00 PM EST completed eCW1 ([facility]) As of November 1998, a 2-dose hepatitis B schedule for adolescents (11-15 year olds) was FDA approved for Merck's Recombivax HB adult formulation. Use code 43 for the 2-dose. This code should be used for any use of standard adult formulation of hepatitis B vaccine. 02/11/2020 10:15:00 PM EST completed eCW1 ([facility]) As of November 1998, a 2-dose hepatitis B schedule for adolescents (11-15 year olds) was FDA approved for Merck's Recombivax HB adult formulation. Use code 43 for the 2-dose. This code should be used for any use of standard adult formulation of hepatitis B vaccine. 02/11/2020 10:15:00 PM EST completed eCW1 ([facility]) As of November 1998, a 2-dose hepatitis B schedule for adolescents (11-15 year olds) was FDA approved for Merck's Recombivax HB adult formulation. Use code 43 for the 2-dose. This code should be used for any use of standard adult formulation of hepatitis B vaccine. 02/11/2020 10:15:00 PM EST completed eCW1 ([facility]) As of November 1998, a 2-dose hepatitis B schedule for adolescents (11-15 year olds) was FDA approved for Merck's Recombivax HB adult formulation. Use code 43 for the 2-dose. This code should be used for any use of standard adult formulation of hepatitis B vaccine. 02/11/2020 10:15:00 PM EST completed eCW1 ([facility]) As of November 1998, a 2-dose hepatitis B schedule for adolescents (11-15 year olds) was FDA approved for Merck's Recombivax HB adult formulation. Use code 43 for the 2-dose. This code should be used for any use of standard adult formulation of hepatitis B vaccine. 02/11/2020 10:15:00 PM EST completed eCW1 ([facility]) As of November 1998, a 2-dose hepatitis B schedule for adolescents (11-15 year olds) was FDA approved for Merck's Recombivax HB adult formulation. Use code 43 for the 2-dose. This code should be used for any use of standard adult formulation of hepatitis B vaccine. 02/11/2020 10:15:00 PM EST completed eCW1 ([facility]) As of November 1998, a 2-dose hepatitis B schedule for adolescents (11-15 year olds) was FDA approved for Merck's Recombivax HB adult formulation. Use code 43 for the 2-dose. This code should be used for any use of standard adult formulation of hepatitis B vaccine. 02/11/2020 10:15:00 PM EST completed eCW1 ([facility]) As of November 1998, a 2-dose hepatitis B schedule for adolescents (11-15 year olds) was FDA approved for Merck's Recombivax HB adult formulation. Use code 43 for the 2-dose. This code should be used for any use of standard adult formulation of hepatitis B vaccine. 02/11/2020 10:15:00 PM EST completed eCW1 ([facility]) Hep A, adult 02/11/2020 10:13:00 PM EST completed e CW1 ([facility]) Hep A, adult 02/11/2020 10:13:00 PM EST completed e CW1 ([facility]) Hep A, adult 02/11/2020 10:13:00 PM EST completed e CW1 ([facility]) Hep A, adult 02/11/2020 10:13:00 PM EST completed e CW1 ([facility]) Hep A, adult 02/11/2020 10:13:00 PM EST completed e CW1 ([facility]) Hep A, adult 02/11/2020 10:13:00 PM EST completed e CW1 ([facility]) Hep A, adult 02/11/2020 10:13:00 PM EST completed e CW1 ([facility]) Hep A, adult 02/11/2020 10:13:00 PM EST completed e CW1 ([facility]) Hep A, adult 02/11/2020 10:13:00 PM EST completed e CW1 ([facility]) Hep A, adult 02/11/2020 10:13:00 PM EST completed e CW1 ([facility]) Hep A, adult 02/11/2020 10:13:00 PM EST completed e CW1 ([facility]) Hep A, adult 02/11/2020 10:13:00 PM EST completed e CW1 ([facility]) Hep A, adult 02/11/2020 10:13:00 PM EST completed e CW1 ([facility]) Hep A, adult 02/11/2020 10:13:00 PM EST completed e CW1 ([facility]) Hep A, adult 02/11/2020 10:13:00 PM EST completed e CW1 ([facility]) Hep A, adult 02/11/2020 10:13:00 PM EST completed e CW1 ([facility]) Hep A, adult 02/11/2020 10:13:00 PM EST completed e CW1 ([facility]) Hep A, adult 02/11/2020 10:13:00 PM EST completed e CW1 ([facility]) Hep A, adult 02/11/2020 10:13:00 PM EST completed e CW1 ([facility]) Hep A, adult 02/11/2020 10:13:00 PM EST completed e CW1 ([facility]) Medications Medication Brand Name Start Date Product Form Dose Route Admi nistrative Instructions Pharmacy Instructions Status Indications Reaction Description Data Source(s) gabapentin 300 MG Oral Capsule gabapentin (NEURONTIN) 300 MG capsule gabapentin (NEURONTIN) 300 MG capsule 11/11/2020 12:00:00 AM EDT active TAKE ONE CAPSULE BY MOUTH TWO TIMES A DAY [facility] apixaban 5 MG Oral Tablet [Eliquis] Eliquis 5 MG TABS tablet Eliquis 5 MG TABS tablet 11/11/2020 12:00:00 AM EDT active TAKE ONE TABLET BY MOUTH TWO TIMES A DAY DIRECTED [facility] Cyclobenzaprine hydrochloride 10 MG Oral Tablet cyclobenzaprine (FLEXERIL) 10 MG tablet cyclobenzaprine (FLEXERIL) 10 MG tablet 11/11/2020 12:00:00 AM EDT active TAKE ONE TABLET BY M OUTH TWO TIMES A DAY NEEDED [facility] Acetaminophen 500 MG Oral Tablet Acetaminophen Extra S trength 500 MG tablet Acetaminophen Extra Strength 500 MG tablet 11/11/2020 12:00:00 AM EDT active TAKE TWO TABLETS BY MOUTH EVERY 6 HOURS NEEDED [facility] celecoxib 200 MG Oral Capsule celecoxib (CeleBREX) 200 MG capsule celecoxib (CeleBREX) 200 MG capsule 09/30/2020 12:00:00 AM EDT active TAKE ONE CAPSULE BY MOUTH TWICE A DAY WITH FOOD [facility] 5 mg 08/04/2020 12:00:00 AM EDT tablet 60 TAKE ONE TABLET BY MOUTH TWICE A DAY DIRECTED TAKE ONE TABLET BY MOUTH TWICE A DAY DIRECTED SOLD: 08/04/2020 [facility] 50 mg 07/22/2020 12:00:00 AM EDT tablet 30 TAKE ONE TABLET BY MOUTH EVERY DAY AT BEDTIME NEEDED TAKE ONE TABLET BY MOUTH EVERY DAY AT BE DTIME NEEDED SOLD: 08/01/2020 [facility] Cyclobenzaprine hydrochloride 10 MG Oral Tablet CYCLOBENZAPR INE HCL 06/27/2020 12:00:00 AM EDT tablet 60 TAKE ONE TABLET BY MOUTH TWICE A DAY NEEDED TAKE ONE TABLET BY MOUTH TWICE A DAY NEEDED SOLD: 07/04/2020 [facility] Cyclobenzaprine hydrochloride 10 MG Oral Tablet CYCLOBENZAPR INE HCL 06/27/2020 12:00:00 AM EDT tablet 60 TAKE ONE TABLET BY MOUTH TWICE A DAY NEEDED TAKE ONE TABLET BY MOUTH TWICE A DAY NEEDED SOLD: 08/01/2020 [facility] 50 mg 2020 12:00:00 AM EDT tablet 30 TAKE ONE TABLET BY MOUTH AT BEDTIME NEEDED TAKE ONE TABLET BY MOUTH AT BEDTIME NEEDED SOLD: [facility] 200 mg 05/21/2020 12:00:00 AM EST capsule 60 TAKE ONE CAPSULE BY MOUTH TWICE A DAY WITH FOOD TAKE ONE CAPSULE BY MOUTH TWICE A DAY WITH FOOD SOLD: 08/01/2020 [facility] 200 mg 05/21/2020 12:00:00 AM EST capsule 60 TAKE ONE CAPSULE BY MOUTH TWICE A DAY WITH FOOD TAKE ONE CAPSULE BY MOUTH TWICE A DAY WITH FOOD SOLD: 06/21/2020 [facility] 200 mg 05/21/2020 12:00:00 AM EST capsule 60 TAKE ONE CAPSULE BY MOUTH TWICE A DAY WITH FOOD TAKE ONE CAPSULE BY MOUTH TWICE A DAY WITH FOOD SOLD: 05/24/2020 [facility] Trazodone Hydrochloride 50 MG Oral Tablet TraZODone HC l 50 MG TraZODone HCl 50 MG 05/16/2020 12:00:00 AM EST 1.0 {tablet_at_bedtime_as_needed} active TraZODone HCl 50 MG eCW1 ([facility]) Cyclobenzaprine hydrochloride 10 MG Oral Tablet CYCLOBENZAPR INE HCL 05/16/2020 12:00:00 AM EST tablet 60 TAKE ONE TABLET BY MOUTH TWO TIMES A DAY NEEDED TAKE ONE TABLET BY MOUTH TWO TIMES A DAY NEEDED SOLD: 05/16/2020 [facility] Trazodone Hydrochloride 50 MG Oral Tablet TraZODone HC l 50 MG TraZODone HCl 50 MG 05/16/2020 12:00:00 AM EST 1.0 {tablet_at_bedtime_as_needed} active TraZODone HCl 50 MG eCW1 ([facility]) 50 mg 05/16/2020 12:00:00 AM EST tablet 30 TAKE ONE TABLET BY MOUTH NEEDED AT BEDTIME TAKE ONE TABLET BY MOUTH NEEDED AT BEDTIME SOLD: [facility] 300 mg 04/24/2020 12:00:00 AM EST capsule 60 TAKE ONE CAPSULE BY MOUTH TWICE A DAY TAKE ONE CAPSULE BY MOUTH TWICE A DAY SOLD: 05/24/2020 [facility] 5 mg 04/24/2020 12:00:00 AM EST tablet 60 TAKE ONE TABLET BY MOUTH TWICE A DAY DIRECTED TAKE ONE TABLET BY MOUTH TWICE A DAY DIRECTED SOLD: 06/21/2020 [facility] 300 mg 04/24/2020 12:00:00 AM EST capsule 60 TAKE ONE CAPSULE BY MOUTH TWICE A DAY TAKE ONE CAPSULE BY MOUTH TWICE A DAY SOLD: 06/21/2020 [facility] Acetaminophen 500 MG Oral Tablet ACETAMINOPHEN 04/24/2020 12:0 0:00 AM EST tablet 120 TAKE TWO TABLETS BY MOUTH EVERY 6 HOURS NEEDED TAKE TWO TABLETS BY MOUTH EVERY 6 HOURS NEEDED SOLD: 06/11/2020 [facility] 5 mg 04/24/2020 12:00:00 AM EST tablet 60 TAKE ONE TABLET BY MOUTH TWICE A DAY DIRECTED TAKE ONE TABLET BY MOUTH TWICE A DAY DIRECTED SOLD: 05/24/2020 [facility] 300 mg 04/24/2020 12:00:00 AM EST capsule 60 TAKE ONE CAPSULE BY MOUTH TWICE A DAY TAKE ONE CAPSULE BY MOUTH TWICE A DAY SOLD: 08/01/2020 [facility] Acetaminophen 500 MG Oral Tablet Acetaminophen 500 MG 2020 12:00:00 AM EST 2.0 {tablet_as_needed} active A cetaminophen 500 MG eCW1 ([facility]) Epclusa 400-100 MG Epclusa 400-100 MG 04/22/2020 12:00:00 AM EST 1.0 {tablet} active Epclusa 400-100 MG e CW1 ([facility]) Acetaminophen 500 MG Oral Tablet Acetaminophen 500 MG 2020 12:00:00 AM EST 2.0 {tablet_as_needed} active A cetaminophen 500 MG eCW1 ([facility]) Acetaminophen 500 MG Oral Tablet Acetaminophen 500 MG 2020 12:00:00 AM EST 2.0 {tablet_as_needed} active A cetaminophen 500 MG eCW1 ([facility]) Acetaminophen 500 MG Oral Tablet Acetaminophen 500 MG 2020 12:00:00 AM EST 2.0 {tablet_as_needed} active A cetaminophen 500 MG eCW1 ([facility]) Acetaminophen 500 MG Oral Tablet Acetaminophen 500 MG 2020 12:00:00 AM EST 2.0 {tablet_as_needed} active A cetaminophen 500 MG eCW1 ([facility]) Acetaminophen 500 MG Oral Tablet Acetaminophen 500 MG 2020 12:00:00 AM EST 2.0 {tablet_as_needed} active A cetaminophen 500 MG eCW1 ([facility]) Acetaminophen 500 MG Oral Tablet Acetaminophen 500 MG 2020 12:00:00 AM EST 2.0 {tablet_as_needed} active eCW1 ([facility]) Acetaminophen 500 MG Oral Tablet Acetaminophen 500 MG 2020 12:00:00 AM EST 2.0 {tablet_as_needed} active A cetaminophen 500 MG eCW1 ([facility]) Acetaminophen 500 MG Oral Tablet Acetaminophen 500 MG 2020 12:00:00 AM EST 2.0 {tablet_as_needed} active A cetaminophen 500 MG eCW1 ([facility]) Acetaminophen 500 MG Oral Tablet Acetaminophen 500 MG 2020 12:00:00 AM EST 2.0 {tablet_as_needed} active A cetaminophen 500 MG eCW1 ([facility]) Acetaminophen 500 MG Oral Tablet Acetaminophen 500 MG 2020 12:00:00 AM EST 2.0 {tablet_as_needed} active A cetaminophen 500 MG eCW1 ([facility]) Acetaminophen 500 MG Oral Tablet Acetaminophen 500 MG 2020 12:00:00 AM EST 2.0 {tablet_as_needed} active A cetaminophen 500 MG eCW1 ([facility]) Acetaminophen 500 MG Oral Tablet Acetaminophen 500 MG 2020 12:00:00 AM EST 2.0 {tablet_as_needed} active A cetaminophen 500 MG eCW1 ([facility]) Acetaminophen 500 MG Oral Tablet Acetaminophen 500 MG 2020 12:00:00 AM EST 2.0 {tablet_as_needed} active A cetaminophen 500 MG eCW1 ([facility]) Trazodone Hydrochloride 50 MG Oral Table t trazodone 50 mg tablet TAKE ONE TABLET BY MOUTH EVERY DAY AT BEDTIME NEEDED trazodone 50 mg tablet TAKE ONE TABLET BY MOUTH EVERY DAY AT BEDTIME NEEDED completed trazodone hydrochloride 50 MG Oral Tablet [facility] ([facility]) Trazodone Hydrochloride 50 MG Oral Table t trazodone 50 mg tablet TAKE ONE TABLET BY MOUTH EVERY DAY AT BEDTIME NEEDED trazodone 50 mg tablet TAKE ONE TABLET BY MOUTH EVERY DAY AT BEDTIME NEEDED completed trazodone hydrochloride 50 MG Oral Tablet [facility] ([facility]) Trazodone Hydrochloride 50 MG Oral Table t trazodone 50 mg tablet TAKE ONE TABLET BY MOUTH EVERY DAY AT BEDTIME NEEDED trazodone 50 mg tablet TAKE ONE TABLET BY MOUTH EVERY DAY AT BEDTIME NEEDED completed trazodone hydrochloride 50 MG Oral Tablet [facility] ([facility]) sofosbuvir 400 mg-velpatasvir 100 mg tablet TAKE ONE T ABLET BY MOUTH EVERY DAY [id number] completed sofosbu vir 400 MG / velpatasvir 100 MG Oral Tablet [facility] ([facility]) celecoxib 200 MG Oral Capsule celecoxib 200 mg capsule TAKE ONE CAPSULE BY MOUTH TWICE A DAY WITH FOOD celecoxib 200 mg capsule TAKE ONE CAPSUL E BY MOUTH TWICE A DAY WITH FOOD completed celeco xib 200 MG Oral Capsule [facility] ([facility]) Trazodone Hydrochloride 50 MG Oral Table t trazodone 50 mg tablet TAKE ONE TABLET BY MOUTH EVERY DAY AT BEDTIME NEEDED trazodone 50 mg tablet TAKE ONE TABLET BY MOUTH EVERY DAY AT BEDTIME NEEDED completed trazodone hydrochloride 50 MG Oral Tablet [place] ([facility]) celecoxib 200 MG Oral Capsule celecoxib 200 mg capsule TAKE ONE CAPSULE BY MOUTH TWICE A DAY WITH FOOD celecoxib 200 mg capsule TAKE ONE CAPSUL E BY MOUTH TWICE A DAY WITH FOOD completed celeco xib 200 MG Oral Capsule [place] ([facility]) apixaban 5 MG Oral Tablet [Eliquis] Eliq uis 5 mg tablet TAKE ONE TABLET BY MOUTH TWO TIMES A DAY DIRECTED Eliquis 5 mg tablet TAKE ONE TABLET BY M OUTH TWO TIMES A DAY DIRECTED completed apixaban 5 MG Oral Tablet [Eliquis] [place] ([facility]) apixaban 5 MG Oral Tablet [Eliquis] Eliq uis 5 mg tablet TAKE ONE TABLET BY MOUTH TWO TIMES A DAY DIRECTED Eliquis 5 mg tablet TAKE ONE TABLET BY M OUTH TWO TIMES A DAY DIRECTED completed apixaban 5 MG Oral Tablet [Eliquis] [place] ([facility]) Buprenorphine 8 MG / Naloxone 2 MG Oral Strip [Suboxone] Suboxone 8 mg-2 mg sublingual film Suboxone 8 mg-2 mg sublingual film completed buprenorphine 8 MG / naloxone 2 MG Sublingual Film [Suboxone] [place] ([facility]) celecoxib 200 MG Oral Capsule celecoxib 200 mg capsule TAKE ONE CAPSULE BY MOUTH TWICE A DAY WITH FOOD celecoxib 200 mg capsule TAKE ONE CAPSUL E BY MOUTH TWICE A DAY WITH FOOD completed celeco xib 200 MG Oral Capsule [place] ([facility]) Buprenorphine 8 MG / Naloxone 2 MG Oral Strip [Suboxone] Suboxone 8 mg-2 mg sublingual film Suboxone 8 mg-2 mg sublingual film completed buprenorphine 8 MG / naloxone 2 MG Sublingual Film [Suboxone] [place] ([facility]) sofosbuvir 400 mg-velpatasvir 100 mg tablet TAKE ONE T ABLET BY MOUTH EVERY DAY [id number] completed sofosbu vir 400 MG / velpatasvir 100 MG Oral Tablet [place] ([facility]) apixaban 5 MG Oral Tablet [Eliquis] Eliq uis 5 mg tablet TAKE ONE TABLET BY MOUTH TWO TIMES A DAY DIRECTED Eliquis 5 mg tablet TAKE ONE TABLET BY M OUTH TWO TIMES A DAY DIRECTED completed apixaban 5 MG Oral Tablet [Eliquis] [place] ([facility]) Buprenorphine 8 MG / Naloxone 2 MG Oral Strip [Suboxone] Suboxone 8 mg-2 mg sublingual film Suboxone 8 mg-2 mg sublingual film completed buprenorphine 8 MG / naloxone 2 MG Sublingual Film [Suboxone] [place] ([facility]) sofosbuvir 400 mg-velpatasvir 100 mg tablet TAKE ONE T ABLET BY MOUTH EVERY DAY [id number] completed sofosbu vir 400 MG / velpatasvir 100 MG Oral Tablet [facility] ([facility]) Trazodone Hydrochloride 50 MG Oral Table t trazodone 50 mg tablet TAKE ONE TABLET BY MOUTH EVERY DAY AT BEDTIME NEEDED trazodone 50 mg tablet TAKE ONE TABLET BY MOUTH EVERY DAY AT BEDTIME NEEDED completed trazodone hydrochloride 50 MG Oral Tablet [place] ([facility]) sofosbuvir 400 mg-velpatasvir 100 mg tablet TAKE ONE T ABLET BY MOUTH EVERY DAY [id number] completed sofosbu vir 400 MG / velpatasvir 100 MG Oral Tablet [place] ([facility]) sofosbuvir 400 mg-velpatasvir 100 mg tablet TAKE ONE T ABLET BY MOUTH EVERY DAY [id number] completed sofosbu vir 400 MG / velpatasvir 100 MG Oral Tablet [place] ([facility]) Buprenorphine 8 MG / Naloxone 2 MG Oral Strip [Suboxone] Suboxone 8 mg-2 mg sublingual film Suboxone 8 mg-2 mg sublingual film completed buprenorphine 8 MG / naloxone 2 MG Sublingual Film [Suboxone] [place] ([facility]) apixaban 5 MG Oral Tablet [Eliquis] Eliq uis 5 mg tablet TAKE ONE TABLET BY MOUTH TWO TIMES A DAY DIRECTED Eliquis 5 mg tablet TAKE ONE TABLET BY M OUTH TWO TIMES A DAY DIRECTED completed apixaban 5 MG Oral Tablet [Eliquis] [place] ([facility]) Trazodone Hydrochloride 50 MG Oral Table t trazodone 50 mg tablet TAKE ONE TABLET BY MOUTH EVERY DAY AT BEDTIME NEEDED trazodone 50 mg tablet TAKE ONE TABLET BY MOUTH EVERY DAY AT BEDTIME NEEDED completed trazodone hydrochloride 50 MG Oral Tablet [facility] ([facility]) apixaban 5 MG Oral Tablet [Eliquis] Eliq uis 5 mg tablet TAKE ONE TABLET BY MOUTH TWO TIMES A DAY DIRECTED Eliquis 5 mg tablet TAKE ONE TABLET BY M OUTH TWO TIMES A DAY DIRECTED completed apixaban 5 MG Oral Tablet [Eliquis] [facility] ([facility]) celecoxib 200 MG Oral Capsule celecoxib 200 mg capsule TAKE ONE CAPSULE BY MOUTH TWICE A DAY WITH FOOD celecoxib 200 mg capsule TAKE ONE CAPSUL E BY MOUTH TWICE A DAY WITH FOOD completed celeco xib 200 MG Oral Capsule [facility] ([facility]) celecoxib 200 MG Oral Capsule celecoxib 200 mg capsule TAKE ONE CAPSULE BY MOUTH TWICE A DAY WITH FOOD celecoxib 200 mg capsule TAKE ONE CAPSUL E BY MOUTH TWICE A DAY WITH FOOD completed celeco xib 200 MG Oral Capsule [place] ([facility]) apixaban 5 MG Oral Tablet [Eliquis] Eliq uis 5 mg tablet TAKE ONE TABLET BY MOUTH TWO TIMES A DAY DIRECTED Eliquis 5 mg tablet TAKE ONE TABLET BY M OUTH TWO TIMES A DAY DIRECTED completed apixaban 5 MG Oral Tablet [Eliquis] [place] ([facility]) celecoxib 200 MG Oral Capsule celecoxib 200 mg capsule TAKE ONE CAPSULE BY MOUTH TWICE A DAY WITH FOOD celecoxib 200 mg capsule TAKE ONE CAPSUL E BY MOUTH TWICE A DAY WITH FOOD completed celeco xib 200 MG Oral Capsule [place] ([facility]) Trazodone Hydrochloride 50 MG Oral Table t trazodone 50 mg tablet TAKE ONE TABLET BY MOUTH EVERY DAY AT BEDTIME NEEDED trazodone 50 mg tablet TAKE ONE TABLET BY MOUTH EVERY DAY AT BEDTIME NEEDED completed trazodone hydrochloride 50 MG Oral Tablet [facility] ([facility]) celecoxib 200 MG Oral Capsule celecoxib 200 mg capsule TAKE ONE CAPSULE BY MOUTH TWICE A DAY WITH FOOD celecoxib 200 mg capsule TAKE ONE CAPSUL E BY MOUTH TWICE A DAY WITH FOOD completed celeco xib 200 MG Oral Capsule [facility] ([facility]) sofosbuvir 400 mg-velpatasvir 100 mg tablet TAKE ONE T ABLET BY MOUTH EVERY DAY [id number] completed sofosbu vir 400 MG / velpatasvir 100 MG Oral Tablet [facility] ([facility]) Trazodone Hydrochloride 50 MG Oral Table t trazodone 50 mg tablet TAKE ONE TABLET BY MOUTH EVERY DAY AT BEDTIME NEEDED trazodone 50 mg tablet TAKE ONE TABLET BY MOUTH EVERY DAY AT BEDTIME NEEDED completed trazodone hydrochloride 50 MG Oral Tablet [facility] ([facility]) celecoxib 200 MG Oral Capsule celecoxib 200 mg capsule TAKE ONE CAPSULE BY MOUTH TWICE A DAY WITH FOOD celecoxib 200 mg capsule TAKE ONE CAPSUL E BY MOUTH TWICE A DAY WITH FOOD completed celeco xib 200 MG Oral Capsule [facility] ([facility]) Insurance Providers Payer name Policy type / Coverage type Policy ID Covered libertarian ID Covered libertarian's relationship to lind Policy [place] Plan Information [place]ICA[place] [id number] Self [id number] [facility] MEDICAID [id number] Self [id number] PERSONAL PAY XXX SELF XXX [facility] COMMUNITY PLAN [id number] SELF [id number] InboundWriter [facility] [id number] SELF [id number] [facility] COMMUNITY PLAN UNAVAILABLE SELF UNAVAILABLE [facility] MEDICAID [id number] Self [id number] [place]ID [place] [id number] Self [id number] [facility] MEDICAID [id number] [facility] MEDICAID [id number] Self [id number] [facility] MEDICAID [id number] Glenna [id number] [facility] MEDICAID [id number] SELF PAY ONLY [id number] SP [id number] EMEDNY [id number] SP [id number] [facility] COMMUNITY PLAN MCDO [id number] SP [id number] [facility] MEDICAID [id number] SP [id number] U Problems, Conditions, and Diagnoses Code Display Name Description Problem Type Effective Dates Data Source(s) 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 Y92.[address] or not applicable UNSPECIFIED PL[address] OR NOT APPLICABLE Diagnosis 03/03/2020 02:06:00 PM [facility] Y83.1 Surgical operation with impl ant of artificial internal device as the cause of abnormal reaction of the patient, or of later complication, without mention of misadventure at the time of the procedure SURGICAL OPERATION WITH IMPLANT OF ARTIFICIAL INTERNAL DEVICE THE CAUSE OF ABNORMAL REACTION OF THE PATIENT, OR OF LATER COMPLICATION, WITHOUT MENTION OF MISADVENTURE AT THE TIME OF THE PROCEDURE Diagnosis 03/03/2020 02:06:00 PM [facility] F11.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 OPIOID ABUSE, IN REMISSION D iagnosis 03/03/2020 02:06:00 PM [facility] G89.29 Other chronic pain OTHER CHRONIC PAIN Diagnosis 02:06:00 PM [facility] M54.5 Low back pain LOW BACK PAIN Diagnosis 03/03/2020 02:06:00 PM [facility] R74.01 ELEV LVLS LIVER TRANSAMINASE LVLS ELEVAT ION OF LEVELS OF LIVER TRANSAMINASE LEVELS Diagnosis 03/03/2020 02:06:00 PM [facility] M46.44 Discitis, unspecified, thoracic region D ISCITIS, UNSPECIFIED, THORACIC REGION Diagnosis 03/03/2020 02:06:00 PM [facility] T82.594A Other mechanical complication of infusio n catheter, initial encounter OTHER MECHANICAL COMPLICATION OF INFUSION CATHETER, INITIAL ENCOUNTER Diagnosis 03/03/2020 02:06:00 PM [facility] I26.90 Septic pulmonary embolism without acute cor pulmonale SEPTIC PULMONARY EMBOLISM WITHOUT ACUTE COR PULMONALE Diagnosis 03/03/2020 02:06:00 PM [facility] I33.0 Acute and subacute infective endocarditi s ACUTE AND SUBACUTE INFECTIVE ENDOCARDITIS Diagnosis 03/03/2020 02:06:00 PM [facility] J18.9 Pneumonia, unspecified organism PNEUMONIA, UNSPECIFIED ORGANISM Diagnosis 03/03/2020 02:06:00 PM [facility] A40.9 Streptococcal sepsis, unspecified STREPTOCOCCAL SEPSIS, UNSPECIFIED Diagnosis 03/03/2020 02:06:00 PM [facility] A41.9 Sepsis, unspecified organism SEPSIS, UNSPECIFIED ORGAN ISM Diagnosis 03/03/2020 02:06:00 PM [facility] [id number] Body mass index 25-29 - overweight Body Mass Ind ex 25-29 - Overweight Problem 12/30/2020 12:00:00 AM EDT [place] ([facility]) [id number] Body mass index 25-29 - overweight Body Mass Ind ex 25-29 - Overweight Problem 12/30/2020 12:00:00 AM EDT [place] ([facility]) [id number] Body mass index 25-29 - overweight Body Mass Ind ex 25-29 - Overweight Problem 12/30/2020 12:00:00 AM EDT [place] ([facility]) [id number] Body mass index 25-29 - overweight Body Mass Ind ex 25-29 - Overweight Problem 12/30/2020 12:00:00 AM EDT [facility] ([facility]) L60.0 [id number] Ingrown toenail of left foot Problem 12/09/2020 12:00:00 AM EDT eCW1 ([facility]) [id number] Superficial acne vulgaris Superficial Acne Vulgaris Pr oblem 12/08/2020 12:00:00 AM EDT [facility] ([facility]) [id number] Gastric ulcer Gastric Ulcer Problem 12/08/2020 12:00:00 AM EDT [facility] ([facility]) [id number] Superficial acne vulgaris Superficial Acne Vulgaris Pr oblem 12/08/2020 12:00:00 AM EDT [facility] ([facility]) [id number] Gastric ulcer Gastric Ulcer Problem 12/08/2020 12:00:00 AM EDT [facility] ([facility]) [id number] Superficial acne vulgaris Superficial Acne Vulgaris Pr oblem 12/08/2020 12:00:00 AM EDT [facility] ([facility]) [id number] Gastric ulcer Gastric Ulcer Problem 12/08/2020 12:00:00 AM EDT [facility] ([facility]) [id number] Superficial acne vulgaris Superficial Acne Vulgaris Pr oblem 12/08/2020 12:00:00 AM EDT [facility] ([facility]) [id number] Gastric ulcer Gastric Ulcer Problem 12/08/2020 12:00:00 AM EDT [facility] ([facility]) [id number] Superficial acne vulgaris Superficial Acne Vulgaris Pr oblem 12/08/2020 12:00:00 AM EDT [facility] ([facility]) [id number] Gastric ulcer Gastric Ulcer Problem 12/08/2020 12:00:00 AM EDT [facility] ([facility]) [id number] Superficial acne vulgaris Superficial Acne Vulgaris Pr oblem 12/08/2020 12:00:00 AM EDT [facility] ([facility]) [id number] Gastric ulcer Gastric Ulcer Problem 12/08/2020 12:00:00 AM EDT [facility] ([facility]) [id number] Superficial acne vulgaris Superficial Acne Vulgaris Pr oblem 12/08/2020 12:00:00 AM EDT [facility] ([facility]) [id number] Gastric ulcer Gastric Ulcer Problem 12/08/2020 12:00:00 AM EDT [facility] ([facility]) [id number] Opioid dependence in remission Opioid Dependence in Re mission Problem 11/24/2020 12:00:00 AM EDT [facility] ([facility]) [id number] Opioid dependence in remission Opioid Dependence in Re mission Problem 11/24/2020 12:00:00 AM EDT [facility] ([facility]) [id number] Opioid dependence in remission Opioid Dependence in Re mission Problem 11/24/2020 12:00:00 AM EDT [facility] ([facility]) [id number] Opioid dependence in remission Opioid Dependence in Re mission Problem 11/24/2020 12:00:00 AM EDT [facility] ([facility]) [id number] Opioid dependence in remission Opioid Dependence in Re mission Problem 11/24/2020 12:00:00 AM EDT [facility] ([facility]) [id number] Opioid dependence in remission Opioid Dependence in Re mission Problem 11/24/2020 12:00:00 AM EDT [facility] ([facility]) [id number] Opioid dependence in remission Opioid Dependence in Re mission Problem 11/24/2020 12:00:00 AM EDT [facility] ([facility]) [id number] Opioid dependence in remission Opioid Dependence in Re mission Problem 11/24/2020 12:00:00 AM EDT [facility] ([facility]) I26.99 Pulmonary embolism Pulmonary embolism [id number] 09/2020 12:00:00 AM EDT 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 I10 [id number] Hypertension, unspecified type Problem 08/04 12:00:00 AM EDT eCW1 ([facility]) F19.11 [id number] Intravenous drug abuse in remission Probl em 05/20/2020 12:00:00 AM EST eCW1 ([facility]) A49.1 [id number] Infection due to Streptococcus mitis grou p Problem 04/22/2020 12:00:00 AM EST eCW1 ([facility]) G89.29 [id number] Other chronic pain Problem 04/22/2020 12:00: 00 AM EST eCW1 ([facility]) B18.2 [id number] Chronic hepatitis C without hepatic coma Problem 04/22/2020 12:00:00 AM EST eCW1 ([facility]) M46.44 [id number] Discitis thoracic region Problem 04/22/2020 12:00:00 AM EST eCW1 ([facility]) I07.9 [id number] Endocarditis of tricuspid valve Problem 04/22/2020 12:00:00 AM EST eCW1 ([facility]) I26.90 [id number] Acute septic pulmonary embolism without acute cor pulmonale Problem 04/22/2020 12:00:00 AM EST eCW1 ([facility]) Surgeries/Procedures Procedure Description Date Indications Data Source(s) ECG ROUTINE ECG W/LEAST 12 LDS W/I&R <td>POCT AMB EKG</td><td>Routine</td><td>11/18/2020 3:51 PM EDT</td><td> Endocarditis of tricuspid valve</td><td> </td> 11/18/2020 03:51:00 PM EDT Endocarditis of tricuspid valve [facility] Endocarditis of tricuspid valve HEPATITIS A VACCINE ADULT FOR INTRAMUSCULAR USE 2020 12:00:00 AM EDT eCW1 ([facility]) SEDIMENTATION RATE RBC AUTOMATED <td>SEDIMENTATION RAT E, AUTOMATED</td><td>Routine</td><td>04/14/2020 9:10 AM EST</td><td></td><td> </td> 04/14/2020 09:10:00 AM EST [facility] CBC AND DIFFERENTIAL <td>CBC AND DIFFERENTIAL</td ><td>Routine</td><td>04/14/2020 9:10 AM EST</td><td></td><td> </td> 04/14/2020 09:10:00 AM EST [facility] C-REACTIVE PROTEIN <td>C-REACTIVE PROTEIN</td>< td>Routine</td><td>04/14/2020 9:10 AM EST</td><td></td><td> </td> 04/14/2020 09:10:00 AM [facility] COMPREHENSIVE METABOLIC PANEL <td>COMPREHENSIVE METABO LIC PANEL</td><td>Routine</td><td>04/14/2020 9:10 AM EST</td><td></td><td> </td> 04/14/2020 09:10:00 AM [facility] SEDIMENTATION RATE RBC AUTOMATED <td>SEDIMENTATION RAT E, AUTOMATED</td><td>Routine</td><td>04/09/2020 7:45 AM EST</td><td></td><td> </td> 04/09/2020 07:45:00 AM [facility] CBC AND DIFFERENTIAL <td>CBC AND DIFFERENTIAL</td ><td>Routine</td><td>04/09/2020 7:45 AM EST</td><td></td><td> </td> 04/09/2020 07:45:00 AM [facility] C-REACTIVE PROTEIN <td>C-REACTIVE PROTEIN</td>< td>Routine</td><td>04/09/2020 7:45 AM EST</td><td></td><td> </td> 04/09/2020 07:45:00 AM [facility] COMPREHENSIVE METABOLIC PANEL <td>COMPREHENSIVE METABO LIC PANEL</td><td>Routine</td><td>04/09/2020 7:45 AM EST</td><td></td><td> </td> 04/09/2020 07:45:00 AM EST [facility] SEDIMENTATION RATE RBC AUTOMATED <td>SEDIMENTATION RAT E, AUTOMATED</td><td>Routine</td><td>04/02/2020 8:55 AM EST</td><td></td><td> </td> 04/02/2020 08:55:00 AM EST [facility] CBC AND DIFFERENTIAL <td>CBC AND DIFFERENTIAL</td ><td>Routine</td><td>04/02/2020 8:55 AM EST</td><td></td><td> </td> 04/02/2020 08:55:00 AM EST [facility] C-REACTIVE PROTEIN <td>C-REACTIVE PROTEIN</td>< td>Routine</td><td>04/02/2020 8:55 AM EST</td><td></td><td> </td> 04/02/2020 08:55:00 AM EST [facility] COMPREHENSIVE METABOLIC PANEL <td>COMPREHENSIVE METABO LIC PANEL</td><td>Routine</td><td>04/02/2020 8:55 AM EST</td><td></td><td> </td> 04/02/2020 08:55:00 AM EST [facility] SEDIMENTATION RATE RBC AUTOMATED <td>SEDIMENTATION RAT E, AUTOMATED</td><td>Routine</td><td>03/24/2020 8:35 AM EST</td><td></td><td> </td> 03/24/2020 08:35:00 AM EST [facility] BLOOD COUNT COMPLETE AUTOMATED <td>CBC</td><td>Routine </td><td>03/24/2020 8:35 AM EST</td><td></td><td> </td> 03/24/2020 08:35:00 AM EST [facility] C-REACTIVE PROTEIN <td>C-REACTIVE PROTEIN</td>< td>Routine</td><td>03/24/2020 8:35 AM EST</td><td></td><td> </td> 03/24/2020 08:35:00 AM EST [facility] COMPREHENSIVE METABOLIC PANEL <td>COMPREHENSIVE METABO LIC PANEL</td><td>Routine</td><td>03/24/2020 8:35 AM EST</td><td></td><td> </td> 03/24/2020 08:35:00 AM EST [facility] SEDIMENTATION RATE RBC AUTOMATED <td>SEDIMENTATION RAT E, AUTOMATED</td><td>Routine</td><td>03/19/2020 1:00 AM EST</td><td></td><td> </td> 03/19/2020 01:00:00 AM [facility] BLOOD COUNT COMPLETE AUTOMATED <td>CBC</td><td>Routine </td><td>03/19/2020 1:00 AM EST</td><td></td><td> </td> 03/19/2020 01:00:00 AM [facility] C-REACTIVE PROTEIN <td>C-REACTIVE PROTEIN</td>< td>Routine</td><td>03/19/2020 1:00 AM EST</td><td></td><td> </td> 03/19/2020 01:00:00 AM EST [facility] COMPREHENSIVE METABOLIC PANEL <td>COMPREHENSIVE METABO LIC PANEL</td><td>Routine</td><td>03/19/2020 1:00 AM EST</td><td></td><td> </td> 03/19/2020 01:00:00 AM EST [facility] RBC AND PLATELET MORPHOLGY <td>RBC AND PLATELET MORPHOLGY</td><td>Routine</td><td>03/12/2020 11:40 AM EST</td><td></td><td> </td> 03/12/2020 11:40:00 AM EST [facility] SEDIMENTATION RATE RBC AUTOMATED <td>SEDIMENTATION RAT E, AUTOMATED</td><td>Routine</td><td>03/12/2020 11:40 AM EST</td><td></td><td> </td> 03/12/2020 11:40:00 AM [facility] BLOOD COUNT COMPLETE AUTOMATED <td>CBC</td><td>Routine </td><td>03/12/2020 11:40 AM EST</td><td></td><td> </td> 03/12/2020 11:40:00 AM [facility] C-REACTIVE PROTEIN <td>C-REACTIVE PROTEIN</td>< td>Routine</td><td>03/12/2020 11:40 AM EST</td><td></td><td> </td> 03/12/2020 11:40:00 AM EST [facility] COMPREHENSIVE METABOLIC PANEL <td>COMPREHENSIVE METABO LIC PANEL</td><td>Routine</td><td>03/12/2020 11:40 AM EST</td><td></td><td> </td> 03/12/2020 11:40:00 AM EST [facility] SEDIMENTATION RATE RBC AUTOMATED <td>SEDIMENTATION RAT E, AUTOMATED</td><td>Routine</td><td>03/05/2020 8:46 PM EST</td><td></td><td> </td> 03/05/2020 08:46:00 PM EST [facility] CBC AND DIFFERENTIAL <td>CBC AND DIFFERENTIAL</td ><td>Routine</td><td>03/05/2020 8:46 PM EST</td><td></td><td> </td> 03/05/2020 08:46:00 PM EST [facility] C-REACTIVE PROTEIN <td>C-REACTIVE PROTEIN</td>< td>Routine</td><td>03/05/2020 8:46 PM EST</td><td></td><td> </td> 03/05/2020 08:46:00 PM EST [facility] COMPREHENSIVE METABOLIC PANEL <td>COMPREHENSIVE METABO LIC PANEL</td><td>Routine</td><td>03/05/2020 8:46 PM EST</td><td></td><td> </td> 03/05/2020 08:46:00 PM EST [facility] Echocardiography, Profl,Tranthoracic, Realtime Image Ushan salty 02/15/2020 12:00:00 AM EST [facility] ([facility]) SEDIMENTATION RATE RBC AUTOMATED <td>SEDIMENTATION RAT E, AUTOMATED</td><td>STAT</td><td>02/12/2020 7:00 AM EST</td><td></td><td> </td> 02/12/2020 07:00:00 AM EST [facility] BLOOD COUNT COMPLETE AUTOMATED <td>CBC</td><td>STAT</t d><td>02/12/2020 7:00 AM EST</td><td></td><td> </td> 02/12/2020 07:00:00 AM EST [facility] C-REACTIVE PROTEIN <td>C-REACTIVE PROTEIN</td>< td>STAT</td><td>02/12/2020 7:00 AM EST</td><td></td><td> </td> 02/12/2020 07:00:00 AM EST [facility] COMPREHENSIVE METABOLIC PANEL <td>COMPREHENSIVE METABO LIC PANEL</td><td>STAT</td><td>02/12/2020 7:00 AM EST</td><td></td><td> </td> 02/12/2020 07:00:00 AM EST [facility] Results ID Date Data Source [id number] 12/22/2020 12:00:00 AM EDT [facility]) Name Value Range Interpretation Code Description Data Danielle rce(s) Supporting Document(s) ID Date Data Source [id number] 12/22/2020 12:00:00 AM EDT [facility]) Name Value Range Interpretation Code Description Data Danielle rce(s) Supporting Document(s) ID Date Data Source [id number] 12/22/2020 12[facility]00:[facility] Name Value Range Interpretation Code Description Data Danielle rce(s) Supporting Document(s) ID Date Data Source [id number] 12/22/2020 12:00:00 AM EDT [facility]) Name Value Range Interpretation Code Description Data Danielle rce(s) Supporting Document(s) ID Date Data Source [id number] 12/15/2020 12:00:00 AM EDT [facility]) Name Value Range Interpretation Code Description Data Danielle rce(s) Supporting Document(s) ID Date Data Source [id number] 12/15/2020 12:00:00 AM [facility]T [facility] Name Value Range Interpretation Code Description Data Danielle rce(s) Supporting Document(s) ID Date Data Source [id number] 12/15/2020 12:00:00 AM EDT [facility] ([facility]) Name Value Range Interpretation Code Description Data Danielle rce(s) Supporting Document(s) ID Date Data Source [id number] 12/15/2020 12:00:00 AM [facility]T [facility] Name Value Range Interpretation Code Description Data Danielle rce(s) Supporting Document(s) ID Date Data Source [id number] 12/15/2020 12:00:00 AM EDT [facility]) Name Value Range Interpretation Code Description Data Danielle rce(s) Supporting Document(s) ID Date Data Source HEPATITIS C QUANT BY PCR 12/09/2020 12:00:00 AM EDT eCW1 ([facility]) Name Value Range Interpretation Code Description Data Danielle rce(s) Supporting Document(s) HCV Not Detected . HEPATITIS C QUANTIT ATION eCW1 ([facility]) TNP . Hepatitis C log10 eCW1 ([facility]) ID Date Data Source LIVER PROFILE 12/09/2020 12:00:00 AM EDT eCW1 ([facility]) Name Value Range Interpretation Code Description Data Danielle rce(s) Supporting Document(s) 22 12-78 ALT/SGPT eCW1 ([facility]) 18 7-37 AST/SGOT eCW1 ([facility]) 87 45-117 ALKALINE PHOSPHATASE eCW1 ([facility]) 3.5 3.2-5.2 ALBUMIN eCW1 ([facility]) 0.2 0.2-1.0 BILIRUBIN,TOTAL eCW1 ([facility]) < 0.1 0.0-0.2 BILIRUBIN,DIRECT eCW1 ([facility]) 7.0 6.4-8.2 TOTAL PROTEIN eCW1 ([facility]) 1.0 ALBUMIN/GLOBULIN RATIO eCW1 ([facility]) ID Date Data Source [id number] 12/08/2020 12:00:00 AM [facility]T [facility] Name Value Range Interpretation Code Description Data Danielle rce(s) Supporting Document(s) ID Date Data Source [id number] 12/08/2020 12:00:00 AM [facility]T [facility] Name Value Range Interpretation Code Description Data Danielle rce(s) Supporting Document(s) ID Date Data Source [id number] 12/08/2020 12:00:00 AM EDT [facility] Name Value Range Interpretation Code Description Data Danielle rce(s) Supporting Document(s) ID Date Data Source [id number] 12/08/2020 12:00:00 AM EDT [facility] Name Value Range Interpretation Code Description Data Danielle rce(s) Supporting Document(s) ID Date Data Source [id number] 12/08/2020 12:00:00 AM EDT [facility]) Name Value Range Interpretation Code Description Data Danielle rce(s) Supporting Document(s) ID Date Data Source [id number] 12/08/2020 12:00:00 AM EDT [facility]) Name Value Range Interpretation Code Description Data Danielle rce(s) Supporting Document(s) ID Date Data Source [id number] 12/01/2020 12:00:00 AM EDT [facility]) Name Value Range Interpretation Code Description Data Danielle rce(s) Supporting Document(s) ID Date Data Source [id number] 12/01/2020 12:00:00 AM EDT [facility]) Name Value Range Interpretation Code Description Data Danielle rce(s) Supporting Document(s) ID Date Data Source [id number] 12/01/2020 12:00:00 AM EDT [facility]) Name Value Range Interpretation Code Description Data Danielle rce(s) Supporting Document(s) ID Date Data Source [id number] 12/01/2020 12:00:00 AM EDT [facility]) Name Value Range Interpretation Code Description Data Danielle rce(s) Supporting Document(s) ID Date Data Source [id number] 12/01/2020 12:00:00 AM EDT [facility]) Name Value Range Interpretation Code Description Data Danielle rce(s) Supporting Document(s) ID Date Data Source [id number] 12/01/2020 12:00:00 AM EDT [facility]) Name Value Range Interpretation Code Description Data Danielle rce(s) Supporting Document(s) ID Date Data Source [id number] 12/01/2020 12:00:00 AM EDT [facility]) Name Value Range Interpretation Code Description Data Danielle rce(s) Supporting Document(s) ID Date Data Source [id number] 11/24/2020 12:00:00 AM [facility]T [facility] Name Value Range Interpretation Code Description Data Danielle rce(s) Supporting Document(s) ID Date Data Source [id number] 11/24/2020 12:00:00 AM EDT [facility] Name Value Range Interpretation Code Description Data Danielle rce(s) Supporting Document(s) ID Date Data Source [id number] 11/24/2020 12:00:00 AM EDT [facility] Name Value Range Interpretation Code Description Data Danielle rce(s) Supporting Document(s) ID Date Data Source [id number] 11/24/2020 12:00:00 AM EDT [facility] Name Value Range Interpretation Code Description Data Danielle rce(s) Supporting Document(s) ID Date Data Source [id number] 11/24/2020 12:00:00 AM EDT [facility] Name Value Range Interpretation Code Description Data Danielle rce(s) Supporting Document(s) ID Date Data Source [id number] 11/24/2020 12:00:00 AM EDT [facility]) Name Value Range Interpretation Code Description Data Danielle rce(s) Supporting Document(s) ID Date Data Source [id number] 11/24/2020 12:00:00 AM EDT [facility] Name Value Range Interpretation Code Description Data Danielle rce(s) Supporting Document(s) ID Date Data Source [id number] 11/24/2020 12:00:00 AM EDT [facility] Name Value Range Interpretation Code Description Data Danielle rce(s) Supporting Document(s) ID Date Data Source URINE CULTURE 08/04/2020 12:00:00 AM EDT eCW1 ([facility]) Name Value Range Interpretation Code Description Data Danielle rce(s) Supporting Document(s) URINE CULTURE eCW1 ([facility]) ID Date Data Source UA URINALYSIS 08/04/2020 12:00:00 AM EDT eCW1 ([facility]) Name Value Range Interpretation Code Description Data Danielle rce(s) Supporting Document(s) UA URINALYSIS eCW1 ([facility]) ID Date Data Source HEPATITIS C FIBROSURE [id number] 04/22/2020 12:00:00 AM EST eC W1 ([facility]) Name Value Range Interpretation Code Description Data Danielle rce(s) Supporting Document(s) 0.11 0.00-0.21 eCW1 ([facility]) A0-No activity . eCW1 ([facility]) . eCW1 ([facility]) 0.11 0.00-0.17 eCW1 ([facility]) 0.2 0.0-1.2 eCW1 ([facility]) 267 17-317 eCW1 ([facility]) 128 101-178 eCW1 ([facility]) 282 110-276 eCW1 ([facility]) 29 0-55 eCW1 ([facility]) 17 0-65 eCW1 ([facility]) . eCW1 ([facility]) . eCW1 ([facility]) . eCW1 ([facility]) . eCW1 ([facility]) . eCW1 ([facility]) ID Date Data Source HEPATITIS C GENOTYPE 04/22/2020 12:00:00 AM EST eCW1 ([facility]) Name Value Range Interpretation Code Description Data Danielle rce(s) Supporting Document(s) 3 . eCW1 ([facility]) . eCW1 ([facility]) ID Date Data Source BLOOD CULTURES 04/22/2020 12:00:00 AM EST eCW1 ([facility]) Name Value Range Interpretation Code Description Data Danielle rce(s) Supporting Document(s) eCW1 ([facility]) ID Date Data Source ERYTHROCYTE SEDIMENTATION RATE 04/22/2020 12:00:00 AM EST eC W1 ([facility]) Name Value Range Interpretation Code Description Data Danielle rce(s) Supporting Document(s) 19 0-15 eCW1 ([facility]) ID Date Data Source CBC with Differential 04/22/2020 12:00:00 AM EST eCW1 ([facility]) Name Value Range Interpretation Code Description Data Danielle rce(s) Supporting Document(s) 9.6 4.0-10.0 eCW1 ([facility]) 5.37 4.30-6.10 eCW1 ([facility]) 13.3 13.5-17.5 eCW1 ([facility]) 44.9 42.0-52.0 eCW1 ([facility]) 83.6 80.0-96.0 eCW1 ([facility]) 24.8 27.0-33.0 eCW1 ([facility]) 29.6 32.0-36.5 eCW1 ([facility]) 394 150-450 eCW1 ([facility]) 17.2 11.5-14.5 eCW1 ([facility]) 68.2 36.0-66.0 eCW1 ([facility]) 20.2 24.0-44.0 eCW1 ([facility]) 0.4 0.0-1.0 eCW1 ([facility]) 8.2 0.0-5.0 eCW1 ([facility]) 6.5 1.5-8.5 eCW1 ([facility]) 2.6 0.0-3.0 eCW1 ([facility]) 0.3 0.0-0.5 eCW1 ([facility]) 0.0 0.0-0.2 eCW1 ([facility]) 1.9 1.5-5.0 eCW1 ([facility]) 0.8 0.0-0.8 eCW1 ([facility]) ID Date Data Source [id number] 04/22/2020 12:00:00 AM EST eCW1 ([facility]) Name Value Range Interpretation Code Description Data Danielle rce(s) Supporting Document(s) eCW1 ([facility]) ID Date Data Source HEPATITIS B SURFACE ANTIBODY 04/22/2020 12:00:00 AM EST eCW1 ([facility]) Name Value Range Interpretation Code Description Data Danielle rce(s) Supporting Document(s) POSITIVE POSITIVE eCW1 ([facility]) ID Date Data Source Comprehensive Metabolic Profile (CMP) 04/22/2020 12:00:00 AM EST eCW1 ([facility]) Name Value Range Interpretation Code Description Data Danielle rce(s) Supporting Document(s) 80 70-100 eCW1 ([facility]) 24 7-18 eCW1 ([facility]) 141 136-145 eCW1 ([facility]) 4.4 3.5-5.1 eCW1 ([facility]) 0.84 0.70-1.30 eCW1 ([facility]) > 60.0 >60 eCW1 ([facility]) 26 21-32 eCW1 ([facility]) 107 98-107 eCW1 ([facility]) 12 7-37 eCW1 ([facility]) 9.2 8.5-10.1 eCW1 ([facility]) 0.2 0.2-1.0 eCW1 ([facility]) 32 12-78 eCW1 ([facility]) 8.1 6.4-8.2 eCW1 ([facility]) 106 45-117 eCW1 ([facility]) 1.0 eCW1 ([facility]) 4.0 3.2-5.2 eCW1 ([facility]) ID Date Data Source [id number] 04/18/2020 01:32:40 PM EST [facility] Name Value Range Interpretation Code Description Data Danielle rce(s) Supporting Document(s) Telephone Encounter [facility] JXYPLo1fCeNZRoLa41/CUJuvGCQff0PwUSaiQKq9YLbqNJNtD7OrQZD8aY8jTDF7RRnMMvZuWvLaSwT0 lbm [file] AgICAgICAgICAgICAgICAgICAgICAgICAgICAgICAgICAgICAgICAgICAgICAgICAgICAgDQogICAgIC AgICAgICAgICAgICAgICAgICAgICAgICAgICAgICAg ICAgICAgICAgICAgICAgICAgICAgICAgICAgICAgICAgICAgICAgICAgICAgICAgICAgICAgICAgICAg ICAgDQogICAgICAgICAgICAgICAgICAgICAgICAgICAgICAgICAgICAgICAgICAgICAgICAgICAgICAg ICAgICAgICAgICAgICAgICAgICAgICAgICAgICAgIC AgICAgICAgICAgICAgDQogICAgICAgICAgICAgICAgICAgICAgICAgICAgICAgICAgICAgICAgICAgIC AgICAgICAgICAgICAgICAgICAgICAgICAgICAgICAgICAgICAgICAgICAgICAgICAgICAgICAgDQogIC AgICAgICAgICAgICAgICAgICAgICAgICAgICAgICAg ICAgICAgICAgICAgICAgICAgICAgICAgICAgICAgICAgICAgICAgICAgICAgICAgICAgICAgICAgICAg ICAgICAgDQogICAgICAgICAgICAgICAgICAgICAgICAgICAgICAgICAgICAgICAgICAgICAgICAgICAg ICAgICAgICAgICAgICAgICAgICAgICAgICAgICAgIC AgICAgICAgICAgICAgICAgDQogICAgICAgICAgICAgICAgICAgICAgICAgICAgICAgICAgICAgICAgIC AgICAgICAgICAgICAgICAgICAgICAgICAgICAgICAgICAgICAgICAgICAgICAgICAgICAgICAgICAgDQ ogICAgICAgICAgICAgICAgICAgICAgICAgICAgICAg ICAgICAgICAgICAgICAgICAgICAgICAgICAgICAgICAgICAgICAgICAgICAgICAgICAgICAgICAgICAg ICAgICAgICAgDQogICAgICAgICAgICAgICAgICAgICAgICAgICAgICAgICAgICAgICAgICAgICAgICAg ICAgICAgICAgICAgICAgICAgICAgICAgICAgICAgIC AgICAgICAgICAgICAgICAgICAgDQogICAgICAgICAgICAgICAgICAgICAgICAgICAgICAgICAgICAgIC AgICAgICAgICAgICAgICAgICAgICAgICAgICAgICAgICAgICAgICAgICAgICAgICAgICAgICAgICAgIC SpSGe3Z1ywYFSrFWUzPV3pLSf6Vc4+DQoNCmVuZHN0 ocIaiB3WOS6xb1GhCSgcLZOxx3BnIRx8CG5HXLLeHOnyNA4CGXgmsz3MMASyKMAgwKMFc7ksTeEmJLB1 MBNiCtasJT4ZWERvU9gvjmQlEJWjQWNYZZ8ECkTxS1ZzrV74RFCQAu4+JZofypDmIygKRqQjCFFim3Uk RYi6RF7CSPOzKfxfz5PpEoRaVVBXSXgnXS4XPPW0MI UtPARkMx6KQNTtW465zqWvIV7JHr9AUmMfXN0exv2RTlJmPOPmMdvELpq1RFfeIW8KlDRxFMpEBOpjlM xnouOcRW5en9UioOIaQYK6AQyzUM3qJWG2KVCQRLIuBXX4DRKHQkThlIZoCaNcYiUyCUOsEDbjOAVILQ gMDzUwH0Ras0InMwE6KUQpTgXoTJfvHWUvLsK1RN15 jOhjAJ4XYLLoSEQuEF85DFMpSYQuOw6RWa6JJrYgQN6rik6XDwIaWAHoGnwPFzs1CEpgAT4DpVRdK4Bc oCYjg1zYEoYbR8WIQAZmFTHoAy5QASAySnHaDJZpWDgrGP0dHYDaCAEKiVgzpfR4BY9CNC0qmrPrCV9L IfFsLp2dQk9BDySiN9EnG5OdRAUuDLNNBXwxVR5ZAH lkNS0qGB9Jh0JLpQVezZ6nxt3LLQMeFRZzWvlxeu6BHwbsX1Q2dGzqTIWsWjLeSPRNNSijAA4SGBRpPL Z2DGIdLKCkRBSBBxUtZ73zPU8RU7Fok31dIqR2XEHvGsTyUNisIK12cCxnetPlaJVihXatPC2JPq4+DQ plbmRvYmoNCnhyZWYNCjAgMjUNCjAwMDAwMDAwMDAg AyX5MvPxAz5ZKXKaNIQsNDLfKbTzGGJnFHZjGWtkVDXhOTY8WWg1OUGtKAZzFQ1EDwZcLRWzOnO0RSvv NXSgQZNwef4SOEQpVYGrJIV7HrEkFBFfHSYeOHsnEHLpNKFtEGM5YQWoNIBfVD2BKjBjQMDpOXW0SoVk XGMjUMSett4UMISxPGWaZkE1ZSOyGKCrSQNcFNpxVX CoPBPvGwc3PNLzVAObVY0LBnOrRZZkIGW8QuYkKNTbATSiuc8QFHNtPIJxFshoXiNqDMZwWBBrYIqaZE MzOED5DEEwLFTpRROaWU6CTsQdNEYbEKTqXSYhTQIgBCVxey1YMOOvNEMwDuE4IHIkBCXyXECoRZirFB IwJZO7TIQ0IWPoKVViYT2ODkHmRFNuYHwdUdAhYKIn OZBcef3HQWQvVQBlCuWqLlIsHITvZCCoOGzlGAPbZEF7SQZqZGIjUZHgDU4IZcZjGKBzBAp4UVUpBTEu WXXokw6JLEJlHLPlQWK7UKGpUDFnMRAlXKbfGTHdNQK4KAEhBSDjDXRjXW2NPwVqUTXqDTmfLcnaAELa ANKlxj8RZQLcQSPrSBgbQqZeIMFwHPLwGAfdUBGbNU MtLxj2AFIlLROxYB5ZMpFuAUMtIsR7MLVaRAHvEVUqfy2ZxNLwiCzvnc7NTEdKKo7EgCwlGRT3GQwiYw 6svBUwXQRhBVBSXo0ZobEsGXRoTPBOTRjdXWEoWZC8HYglS9HdWTRbQvNpQGehLcTmKEHuI0ViPWlhVA h9QuX3CLy7WXVhPpR2SRPtZHYfBACdTqEfIlXcVaS7 ODExODQ+PN3pGQg+Bb9Bf4HmrgN7dhXqIDgfSLV7Sq6FKXEDU8WUTl== ID Date Data Source [id number] 04/18/2020 01:10:41 PM EST [facility] Name Value Range Interpretation Code Description Data Danielle rce(s) Supporting Document(s) Telephone Encounter [facility] BUDTPa3hPxLAFtOy93/FZObfVDQcq9IyAWjfCUl5TZpvFDAbF8ZpZRN2qH0hNQY1ENePMyTxQhLbExU0 lbm [file] W7N9QaDOFhZtR1IAb4W4W2CwY+XJ2vKFt+Fb1Es0XzciZ3ozDgMWvgYMl6Rw2GPSSBE2IWCo== ID Date Data Source [id number] 04/16/2020 03:44:47 PM EST [facility] Name Value Range Interpretation Code Description Data Danielle rce(s) Supporting Document(s) Telephone Encounter [facility] WVNZCe0iVaAEQfLg09/STAfsOXHht7DbNJbyETy3MEahQLIeB1LlWLF3mF7bWLR1SXmZToMoSaMoFmYy lbm [file] AgICAgICAgICAgICAgICAgICAgICAgICAgICAgICAgICAgICAgICAgICAgICAgICAgICAgICAgICAgIC AbFGOeQORjOVKzVIJmTNLhHNQvCTIeMOSqDIUgMRNjILJfGC1VWRRsQIMhNSDfUPTwFCGpBSPuKIOoQP AgICAgICAgICAgICAgICAgICAgICAgICAgICAgICAg NRXkECCuECEoWCAbBKOhXVOfGOGcWXQwHMKyRPUrUAHtRSAyXJKdTXFdWDWsTW2ABWCzKLZtEDArCXLa ICAgICAgICAgICAgICAgICAgICAgICAgICAgICAgICAgICAgICAgICAgICAgICAgICAgICAgICAgICAg FSEiWNXwVJQzABJtBHDtYMGvYDGqCLVrSHHzRN3JEZ AgICAgICAgICAgICAgICAgICAgICAgICAgICAgICAgICAgICAgICAgICAgICAgICAgICAgICAgICAgIC UtBWDfYTLgJMEuWQXrXTHeEKZqSLPnLRNvABEpBQUhWIMfRTMaYO3WFRMwVWWoWJCfSDVlFAXcKXHmRZ AgICAgICAgICAgICAgICAgICAgICAgICAgICAgICAg CJBxBWPbRXJlMJDoCXUwGHPlZLUfEOLdKYXxODZtCGEhNBQjHTWgFBGgLVZtUYRvUZ8CTOYlNEEySJZm ICAgICAgICAgICAgICAgICAgICAgICAgICAgICAgICAgICAgICAgICAgICAgICAgICAgICAgICAgICAg ICAgICAgICAgICAgICAgICAgICAgICAgICAgICAgIA 0KICAgICAgICAgICAgICAgICAgICAgICAgICAgICAgICAgICAgICAgICAgICAgICAgICAgICAgICAgIC HcLSDvEXNmIBVkKUSrFRKvICMoCCRuJLZkZRByWINoSHQuDKXyMSQbZP8VGMTrYQMvNGDgVTKfXBGaLV AgICAgICAgICAgICAgICAgICAgICAgICAgICAgICAg LJRwFLErVWBzJJJnYBGuHWHlTSBpYFZkWUOpEEAlCSBqNIFdIHPiODKtWVIiXJChRVQiGR7IZLFhXBKf ICAgICAgICAgICAgICAgICAgICAgICAgICAgICAgICAgICAgICAgICAgICAgICAgICAgICAgICAgICAg ICAgICAgICAgICAgICAgICAgICAgICAgICAgICAgIC DpFD8XTRFrWIZcTRRvYNTuRMYbOEVqOXShDCFbUYRbZREcADAnUZViJVCkSJHnBGZjFVAiAGCdHOXlZK PtEHCzHKUiDLJgEZLkFHMwLPOvZPSzFGYuNZQyRCEhAPOyGJBvGNCoQOSeUR9NTQ64kHFnl2U2MGIoFN 0ndyc/Xn7XWMyvsyPgxIQmKP6SRrGuMC5gxk2WWbNb QQ7fid2TTEbDPjViA2T3wEFuFTImWYIXPfQvM36kAPjhJy45XSfgYUAnAzCtBEa2Li3JWsTjT6fxSTJf EmX2KLVsMxVoTQohAU9Rs6UdyUIjVLo+Kj2AQV5bd2WxCJejNbSmAB6fcd3WAGwZUiFqQ3SuxbC8IFHp GYCqRs1VPTAiGRCeeLToNhOgGDTMWrZuL2NeyL03AV ENCj4+AZjjrfOdHwrXMgFuMAOms9BnXGw2AB1BOJLxTHj5fFXhEHWkVZPhk15hCYOrX118ulWubaFtlO WIPU8oVUGyfL1vSRIzKCD3GKDsYu0zVHDoXZSqWiBnHRHYWH3NFLMwAYBpvBZmSBJrFAGHMO5PPRsrHI Y5BmgowyIfpNPeLCssSP2ZXKPvctKdZpJpJPUKNJx+ Ab9QFQ8ea9VbACjpZAWcJQ8kvw7QQXqQMzStV4K1sCGbJ0W3OYzcZx2KSFUxXQDpWsQwLLBVCUdpTC3K IO2akrJ2VY1CiDSlNFCzOGYhhGKuZOf6G12igWYtPCqgPR6MHXB+Mandeep+Nz2ALOWqZKChEUOfCbNtPRAC CrVjZ5OlZ8OIe0OnZ8RdGO46nMijepBfLRtjZJ2GKW 0hFNXmJGDTZF0SrWObjD5muuSkLsMlVVRMSvZyU47tqOQtVUWpSYFfNZGxVu8UYXVgZ0HdzrQtiAxepi NzJCPqOMJSGE1SAWkebxOesENmrJlgTY90cHhbNX6EYd6UYoNeDQ2fns6XaVKgHo0RTNMwTX9LSIUaOP RxMXErWML4SNEcPqQuBIwkWRLnMPZtAEV8AUGzVUGe LW5FKuImZHAbJYk8XnPzYFCmOGNmrt8CEBJxHJRiJQBhQlWwXEZlQHWmHDvdWQFdERNjTFQ4EUEpGREr JT9ABkYlDUOaOTNvUHAxDKIzGQNbbx0EQSBqNNStYkUfPOQrDSBgBKMgBDwjNSXwTBXqXXY1BSUuHQZv RB5CLyMtBHWoOCGbOwbpGQRqRFLxtg4BWWMwWBRkMr E5DrDzXPZgMOEcRSfqJJNyMJS2ZHZkPVHyHZZyRO5GOiYmLQGyOSN7BAmeQSGmFXOlxb3VNOJiVNQuEV j8BZQyYAOqGWPpTFzqTMZlVVD8ZyEjYDUvHNHxXO9IHeZoCDEoLQv6RQSfFTQcIOMgiu2VFZBuGNMdIe g6UUDlJSNyGSAjSElvCXRaXWT8IRQ6MDUnMZCpXS1E AaZgYIVzHZtjZHOkYNFtFOFwqv2YDSQaVUFiLPL5DvMsCPKkXFHzNYsaNAJsEEW4Mtd4DNExDAUxNH7F QkJpZRKyAGt0QTOmJQCaKXFusk5MULXoRXTnBKf2SeRqJPWhKSLqHXphFEXaBEQxSxV4TTKeCQXpMH8Y AaQuXZRwChTiGdHtOVKnSCDsvq7VBEArJYRvSIYkSI ZtSGCtJXJwHNt7mtMhzDKkREe3KZ2XQ9PfnjXcMpAHUc7Rc591QDN6TRVtAl5OF6pwQl3hULBiOIOAVu 1OKQt0C4S1ATy1WkMkKhE6PVDdSSNfZKZoXok3GjGtYuQ3ZmT+ANc9OOI5DNokSQD4RJfwEcA5LNCaKW ZvLuZ2S9BqKbW4OH1wXUKWKo3+SGwiwVSwqYbjIVVRBxYtFaT9LIfzSVSOFo7Z ID Date Data Source [id number] 04/16/2020 12:00:00 PM EST [facility] Name Value Range Interpretation Code Description Data Danielle rce(s) Supporting Document(s) :PrThr:Pt:Respiratory:Ord:Probe.amp.tar Negative [facility] This lab was ordered by [facility] in Lab Site and reported by [facility]. ID Date Data Source [id number] 04/17/2020 05:30:00 PM EST [facility] Name Value Range Interpretation Code Description Data Danielle rce(s) Supporting Document(s) CRSP SARS-CoV-2 (RT)-PCR Assay Negative Negative N ormal (applies to non-numeric results) [facility] The [place] (U.S[place] FDA has made th is test available under anemergency access mechanism called Emergency Use Authorization (EUA). TheEUA is supported by the coordinating producer of Health and Human Services (HHSs)declaration that circumstances exist to justify the emergency use of invitro diagnostics (IVDs) for the detection and/or diagnosis of the virusthat causes COVID-19.Test performed at [facility] [place] [address]. First Test No [facility] Employed in healthcare No [facility] Symptomatic as defined by CDC No [facility] Hospitalized No [facility] Resident in a congregate care setting Yes [facility] No [facility] Intensive Care No [facility]alt System The above 8 [place] [address] ID Date Data Source [id number] 04/14/2020 05:12:06 PM EST [facility] Name Value Range Interpretation Code Description Data Danielle rce(s) Supporting Document(s) Progress Notes [facility] SUMSCg8fUdQQJpAi45/YJQtkZUNqs2WxGAjeGJb6RFgbHUTqU6PxLAG7zE1fJZR5FFiKXvVnCzMkSoHp m [file] ICAgICAgICAgICAgICAgICAgICAgICAgICAgICAgIC AgICAgICAgICAgICAgICAgICAgICAgICAgICAgICAgICAgICAgICAgICAgICANCiAgICAgICAgICAgIC AgICAgICAgICAgICAgICAgICAgICAgICAgICAgICAgICAgICAgICAgICAgICAgICAgICAgICAgICAgIC AgICAgICAgICAgICAgICAgICAgICAgICAgICANCiAg ICAgICAgICAgICAgICAgICAgICAgICAgICAgICAgICAgICAgICAgICAgICAgICAgICAgICAgICAgICAg ICAgICAgICAgICAgICAgICAgICAgICAgICAgICAgICAgICAgICANCiAgICAgICAgICAgICAgICAgICAg ICAgICAgICAgICAgICAgICAgICAgICAgICAgICAgIC AgICAgICAgICAgICAgICAgICAgICAgICAgICAgICAgICAgICAgICAgICAgICAgICANCiAgICAgICAgIC AgICAgICAgICAgICAgICAgICAgICAgICAgICAgICAgICAgICAgICAgICAgICAgICAgICAgICAgICAgIC AgICAgICAgICAgICAgICAgICAgICAgICAgICAgICAN CiAgICAgICAgICAgICAgICAgICAgICAgICAgICAgICAgICAgICAgICAgICAgICAgICAgICAgICAgICAg ICAgICAgICAgICAgICAgICAgICAgICAgICAgICAgICAgICAgICAgICANCiAgICAgICAgICAgICAgICAg ICAgICAgICAgICAgICAgICAgICAgICAgICAgICAgIC AgICAgICAgICAgICAgICAgICAgICAgICAgICAgICAgICAgICAgICAgICAgICAgICAgICANCiAgICAgIC AgICAgICAgICAgICAgICAgICAgICAgICAgICAgICAgICAgICAgICAgICAgICAgICAgICAgICAgICAgIC AgICAgICAgICAgICAgICAgICAgICAgICAgICAgICAg ICANCiAgICAgICAgICAgICAgICAgICAgICAgICAgICAgICAgICAgICAgICAgICAgICAgICAgICAgICAg ICAgICAgICAgICAgICAgICAgICAgICAgICAgICAgICAgICAgICAgICAgICANCiAgICAgICAgICAgICAg ICAgICAgICAgICAgICAgICAgICAgICAgICAgICAgIC AgICAgICAgICAgICAgICAgICAgICAgICAgICAgICAgICAgICAgICAgICAgICAgICAgICAgICANCjw/eH WzX6mncJRgkxB6U7odXs7UJl9OEA5sp9CvHOWgNEhxswYhClnGHkSpQSFoOjsBClw4YQenQX2IvRZnR0 YzW3LkKGwpJC8CCXRdQEAzaOMpWKGxFLNjTwV2KKQf FZviUM7QgWJjVKojIWLuJMFmJA2XKJWuS243lmOqQE3KMa8KZrPsVE9aai6MTjLjDHTpJhpAHqe5ASuo JL1ApVNvdXNaWuFtRSUEMjSaT0wiu6MuLvJkRXZSAUgpVO3Ce2EuvOMtGHf+Fs3UEE0ax0TaGOfbLwFu SJ4jxc1KLFnRWcFmV2WgaNuaLRXay2wjQEQcJR9yuN QtPBV6YFFgq24rNJWHdHpic60tEQ8FCCG8HGScYH6pCWLoUVK1HeM3FVCINM2OTLCjBNQugCHjZYWiIA VDXO9LTWdcSEQ7RbrwygYieGBfSCkwDK4EPYXqhgQpQkItLOEKEQm+Wg2GWJ3ys0BsNFjmEDXfPX3xoh 7GUIhYLbUmU9H4cOUuX3Z1EMlzCq7JZEPhFPNoMqKj HICQPKlhWE8WII8rpbY3TM8QjLFfAYApZEDosFDfDHe6D91hnCRhJOrzDD9HOBC+Mandeep+Uv9GLQHrAYAc EFZtPzUbIHNFLhYlC0LlO7LCl6DqF5XoCA48yPknyuLzWTvuIH9JUL6lAWEkUSIBIZ0InYObcD7inbCv JfTbSCTIXsXtE01roBKgKVBrKCPyPSVmMt2AGGOoD7 UkqnNluXrkrsPzYTYlMJZESE5CLJwgfpJujXNlbCybKM02mKogXJ0CIb8JYsSmDJ6vmf1AfREoFd1RPP LfXD2OERYwDDCtUBGvFHI8LJEzTqUtCDhrPDDpSQBeFXK7BUZfXHMcOP0MVvLcXXGwSXo7NTxfCLBlWM Fdid1AGAIeNCYgSTA0VWFrASVfXBAeXGcvMFNaNDKn IHX1RWGgDPIjXL6YWkLgOHOtMDGjAZshLTReHHTvmz9VABYjYMOtODT4OkIeAUNdZTKeSHwkNJXiPIYk DGYiFFKaVETbEX6MHeXcIVDeQSZ9TFLqRQBjDYEath5SHOPeTYPnGhi0AcAmHXXdHMDiWEbpXTGsUJAn TAX6OHGdVGYqYC5KOrMfILPpXVWaHIUmHYCoRERprv 3ZPRVxUEUhYRJnPVZgROQvWVVyJPwpIUNsSCV5SXk1XHPyVKAhKN2DZaUcOWSsJFW2MGOhDJLjSDKjqo 6FKOHkPUHgEgSkHHLxRJGoJPEeEEsjGSLhZCL0IzU8YIXwFLQaGB1EFsAeCRIyKUk4RQBnNITsCJInio 6INOCzVIDeSUFoJtDhVHOuADSeTWzeGKGuTKT5EqSv LQNwKXKbOO6WBuLkJQHfDQv3IHPeHDBxEXHbbs3TEFBxOHKxACUaCXChYDJrKQLnNYsqSEYvRQMeVwE6 WIZhLGSfOI6STfOzBTRrAwH0DsFwUXGzPPOtlo3CIZYuWGFnDFb1DxNaKZEfGXRqFSq8peDvuASzJCi5 BP6NL9KiwhDbEvYLDm1Qt047LXC6WOVtCi3HK6uzMj 9rVJCbSXZRBw3VWXw3CXqaCGmfAiJ3X1QtOlxrRnYlHkqjY0ZhJcPpXuR4FFJ+GUaqG4Q1SIZ1NNRaDT LjM4P7PDH0BEAkPVRiJ7S1Lha3GD4rQIZISh9+RLdnvHRouAzeBUUWNtVcDPXdNJlmNRVQPl9D ID Date Data Source [id number] 04/14/2020 03:20:00 PM EST [facility] Name Value Range Interpretation Code Description Data Danielle rce(s) Supporting Document(s) AST 25 IU/L 15-37 Normal (applies to non-numeric resul ts) [facility] Sulfasalazine and sulfapyridine have the potential to falsely depressAspartate Aminotransferase results. Baseline values before medication administration are recommended. ALT 35 IU/L 16-61 Normal (applies to non-numeric resul ts) [facility] Sulfasalazine and sulfapyridine have the potential to falsely depressAlanine Aminotransferase results. Baseline values before medication administration are recommended. Alkaline Phosphatase 108 mIU/ml 50-136 Normal (applies to n on-numeric results) [facility] Total Bilirubin 0.30 mg/dl 0.20-1.00 Normal (applies to non-numeric results) [facility] Blood Urea Nitrogen 19 mg/dl 7-18 Above high normal [facility] Creatinine 0.77 mg/dl 0.67-1.17 Normal (applies to non-numeric resul ts) [facility] N-Acetylcysteine (NAC) and Metamizole hearn ve the potential to falselydepress Creatinine results. Baseline values before medication adminstration are recommended. Patients undergoing treatment with phenindione will have falselydepressed results. Patients on phenindione therapy should be tested with an alternativeCREA method.Toxic levels of acetaminophen may lead to falsely depressed results forpatient samples. Glomerular Filtration Rate >90.00 mL/min/1.73m2 [facility] GFR Reference Ranges:Normal Function or Mild Renal Disease,if clinically at risk:>or= 60Moderately decreased:30 - 59Severely decreased:15 - 29Renal Failure:<15 Please note that the MDRD equation requires an additional adjustment forAfrican-Americans (multiply the GFR result by 1.210).Glomarular Filtration Rate (GFR) is estimated based on the MDRDequation, which assumes a steady state for creatinine ([place] Int Med 139/2 137-149, 2003), as recommended by the NationalKidney Disease Education Program in conjunction with the National Institutes of Health and the National KidneyFoundation. The [place] method used in calculating this result is traceable to IDMS standards. Glucose 78 mg/dl 70-110 Normal (applies to non-numeric resul ts) [facility] Sulfasalazine has the potential to false ly depress Glucose results. Sulfapyridine has the potential to falsely elevate Glucose results. Baseline values before medication administration are recommended. Calcium 9.7 mg/dl 8.5-10.1 Normal (applies to non-numeric resul ts) [facility] Total Protein 8.2 g/dl 6.4-8.2 Normal (applies to non-numeric re sults) [facility] Albumin 4.1 g/dl 3.4-5.0 Normal (applies to non-numeric resul ts) [facility] Sodium 140 mEq/L 136-145 Normal (applies to non-numeric resul ts) [facility] Potassium 4.9 mEq/L 3.5-5.1 Normal (applies to non-numeric resul ts) [facility] Chloride 106.0 mEq/L 98.0-107.0 Normal (applies to non-numeric resu lts) [facility] Carbon Dioxide 28.0 mMol/L 21.0-32.0 Normal (applies to non-numeric results) [facility] Anion Gap 10.9 7.0-15.0 Normal (applies to non-numeric resul ts) [facility] The above 16 analytes were performed by [facility] [id number] [place] [address], ,[place] [address] ID Date Data Source [id number] 04/14/2020 03:20:00 PM EST [facility] Name Value Range Interpretation Code Description Data Danielle rce(s) Supporting Document(s) C-Reactive Protein (Non-Cardiac) 20.60 mg/L 0.00-3.00 Above high nor mal [facility] The above 1 analytes were performed by [facility] [id number] [place] [address], ,[place] [address] ID Date Data Source [id number] 04/14/2020 02:23:00 PM EST [facility] Name Value Range Interpretation Code Description Data Danielle rce(s) Supporting Document(s) WBC 8.32 x1000/ul 4.80-10.00 Normal (applies to non-numeric re sults) [facility] RBC 5.31 x1Mil/ul 4.70-6.10 Normal (applies to non-numeric re sults) [facility] Hemoglobin 13.6 g/dl 14.0-18.0 Below low normal [facility] Hematocrit 45.0 % 42.0-52.0 Normal (applies to non-numeric resul ts) [facility] MCV 84.7 fL 80.0-94.0 Normal (applies to non-numeric resul ts) [facility] MCH 25.6 pg 27.0-31.0 Below low normal [facility] MCHC 30.2 g/dl 32.2-37.0 Below low normal [facility] RDW 18.0 % 11.5-14.5 Above high normal [facility] Platelet Count 423 x1000/ul 130-400 Above high normal [facility] MPV 8.9 fL 9.4-12.4 Below low normal [facility] Neutrophils 54.1 % 40.0-74.0 Normal (applies to non-numeric resu lts) [facility] Lymphocytes 27.6 % 19.0-48.0 Normal (applies to non-numeric resu lts) [facility] Monocytes 10.9 % 3.4-9.0 Above high normal [facility] Eosinophils 6.5 % 0.0-7.0 Normal (applies to non-numeric resu lts) [facility] Basophils 0.8 % 0.0-2.0 Normal (applies to non-numeric resul ts) [facility] Immature Granulocytes 0.1 % 0.0-0.5 Normal (applies to non-nu meric results) [facility] Nucleated RBCs 0.00 % 0.00-0.20 Normal (applies to non-numeric r esults) [facility] Abs. Neutrophils 4.49 x1000/ul 1.92-8.31 Normal (applies to non-numeric results) [facility] Abs. Lymphocyte 2.30 x1000/ul 1.20-3.70 Normal (applies to non-n umeric results) [facility] Abs. Monocytes 0.91 x1000/ul 0.14-0.97 Normal (applies to non-nu meric results) [facility] Abs. Eosinophils 0.54 x1000/ul 0.00-0.76 Normal (applie s to non-numeric results) [facility] Abs. Basophils 0.07 x1000/ul 0.00-0.22 Normal (applies to non-n umeric results) [facility] Abs. Immature Gran. 0.01 x1000/ul 0.00-0.02 Normal (appl ies to non-numeric results) [facility] Abs. Nucleated RBCs 0.00 x1000/ul 0.00-0.02 Normal (appl ies to non-numeric results) [facility] The above 24 analytes were performed by [facility] [id number] [facility], ,[place] [address] ID Date Data Source [id number] 04/14/2020 02:03:00 PM EST [facility] Name Value Range Interpretation Code Description Data Danielle rce(s) Supporting Document(s) Sedimentation Rate 33 mm/hr 0-15 Above high normal [facility] The above 1 analytes were performed by Ronny robertson [facility] [id number] [facility], ,[place] [address] ID Date Data Source [id number] 04/12/2020 10:00:00 PM EST [facility] Name Value Range Interpretation Code Description Data Danielle rce(s) Supporting Document(s) SARS-CoV-2 & Flu A/B Specimen Source: Nasopharynx [facility] Patient Ethnicity: Unknown [facility] ADDITIONAL INFORMATIO N This PCR test is performed using the hernan SARS-CoV-2 andInfluenza A/B assay ([employer] on [employer] / [employer]800 Systems, and it has received EmergencyUse Authorization (EUA) by the U.S. Food and DrugAdministration.Fact sheets for this Emergency Use Authorization (EUA)assay can be found at the following links:https://www.fda.gov/media/662532/download for HealthcareProvidershttps://www.fda.gov/media/913614/download for PatientsTest Performed by:[facility] [place] [id number] Director: Flo Rodriguez M.D. Ph.D.; CLIA# [id number] Patient Race: Unknown [facility] SARS CoV-2 RNA PCR Undetected Undetected Normal (appli es to non-numeric results) [facility] SARS-CoV-2 RNA absent. This result does not rule outCOVID-19 in the patient, as the sensitivity of the testdepends on the timing of the specimen collection and thequality of the specimen. Result should be correlated withpatient's history and clinical presentation. Influenza A RNA PCR Undetected Undetected Normal (appl ies to non-numeric results) [facility] Influenza A RNA absent. Influenza B RNA PCR Undetected Undetected Normal (appl ies to non-numeric results) [facility] Influenza B RNA absent.The above 6 aymilex andrew were performed by Samson Tellja ([id number]) ID Date Data Source [id number] 04/09/2020 02:34:00 PM [facility] Name Value Range Interpretation Code Description Data Danielle rce(s) Supporting Document(s) Sedimentation Rate 36 mm/hr 0-15 Above high normal [facility] The above 1 analytes were performed by [facility] [address], ,[place] [address] ID Date Data Source [id number] 04/09/2020 01:52:00 PM [facility] Name Value Range Interpretation Code Description Data Danielle rce(s) Supporting Document(s) C-Reactive Protein (Non-Cardiac) 21.00 mg/L 0.00-3.00 Above high nor mal [facility] The above 1 analytes were performed [facility] [address], ,[place] [address] ID Date Data Source [id number] 04/09/2020 01:52:00 PM [facility] Name Value Range Interpretation Code Description Data Danielle rce(s) Supporting Document(s) AST 16 IU/L 15-37 Normal (applies to non-numeric resul ts) [facility] Sulfasalazine and sulfapyridine have the potential to falsely depressAspartate Aminotransferase results. Baseline values before medication administration are recommended. ALT 31 IU/L 16-61 Normal (applies to non-numeric resul ts) [facility] Sulfasalazine and sulfapyridine have the potential to falsely depressAlanine Aminotransferase results. Baseline values before medication administration are recommended. Alkaline Phosphatase 116 mIU/ml 50-136 Normal (applies to n on-numeric results) [facility] Total Bilirubin 0.10 mg/dl 0.20-1.00 Below low normal [facility] Blood Urea Nitrogen 19 mg/dl 7-18 Above high normal [facility] Creatinine 0.75 mg/dl 0.67-1.17 Normal (applies to non-numeric resul ts) [facility] N-Acetylcysteine (NAC) and Metamizole hearn ve the potential to falselydepress Creatinine results. Baseline values before medication adminstration are recommended. Patients undergoing treatment with phenindione will have falselydepressed results. Patients on phenindione therapy should be tested with an alternativeCREA method.Toxic levels of acetaminophen may lead to falsely depressed results forpatient samples. Glomerular Filtration Rate >90.00 mL/min/1.73m2 [facility] GFR Reference Ranges:Normal Function or Mild Renal Disease,if clinically at risk:>or= 60Moderately decreased:30 - 59Severely decreased:15 - 29Renal Failure:<15 Please note that the MDRD equation requires an additional adjustment forAfrican-Americans (multiply the GFR result by 1.210).Glomarular Filtration Rate (GFR) is estimated based on the MDRDequation, which assumes a steady state for creatinine ([place] Int Med 139/2 137-149, 2003), as recommended by the Nationaldney Disease Education Program in conjunction with the National Institutes of Health and the National KidneyFoundation. The [place] method used in calculating this result is traceable to IDMS standards. Glucose 89 mg/dl 70-110 Normal (applies to non-numeric resul ts) [facility] Sulfasalazine has the potential to false ly depress Glucose results. Sulfapyridine has the potential to falsely elevate Glucose results. Baseline values before medication administration are recommended. Calcium 9.4 mg/dl 8.5-10.1 Normal (applies to non-numeric resul ts) [facility] Total Protein 7.9 g/dl 6.4-8.2 Normal (applies to non-numeric re sults) [facility] Albumin 3.6 g/dl 3.4-5.0 Normal (applies to non-numeric resul ts) [facility] Sodium 140 mEq/L 136-145 Normal (applies to non-numeric resul ts) [facility] Potassium 4.5 mEq/L 3.5-5.1 Normal (applies to non-numeric resul ts) [facility] Chloride 107.0 mEq/L 98.0-107.0 Normal (applies to non-numeric resu lts) [facility] Carbon Dioxide 26.5 mMol/L 21.0-32.0 Normal (applies to non-numeric results) [facility] Anion Gap 11.0 7.0-15.0 Normal (applies to non-numeric resul ts) [facility] The above 16 analytes were performed by [facility] [address],[facility]#: [id number],[place] [address] ID Date Data Source [id number] 04/09/2020 01:45:00 PM EST [facility] Name Value Range Interpretation Code Description Data Danielle rce(s) Supporting Document(s) WBC 7.08 x1000/ul 4.80-10.00 Normal (applies to non-numeric re sults) [facility] RBC 5.01 x1Mil/ul 4.70-6.10 Normal (applies to non-numeric re sults) [facility] Hemoglobin 12.5 g/dl 14.0-18.0 Below low normal [facility] Hematocrit 41.9 % 42.0-52.0 Below low normal [facility] MCV 83.6 fL 80.0-94.0 Normal (applies to non-numeric resul ts) [facility] MCH 25.0 pg 27.0-31.0 Below low normal [facility] MCHC 29.8 g/dl 32.2-37.0 Below low normal [facility] RDW 18.3 % 11.5-14.5 Above high normal [facility] Platelet Count 369 x1000/ul 130-400 Normal (applies to non-numeric results) [facility] MPV 9.2 fL 9.4-12.4 Below low normal [facility] Neutrophils 62.1 % 40.0-74.0 Normal (applies to non-numeric resu lts) [facility] Lymphocytes 21.6 % 19.0-48.0 Normal (applies to non-numeric resu lts) [facility] Monocytes 10.3 % 3.4-9.0 Above high normal [facility] Eosinophils 5.1 % 0.0-7.0 Normal (applies to non-numeric resu lts) [facility] Basophils 0.6 % 0.0-2.0 Normal (applies to non-numeric resul ts) [facility] Immature Granulocytes 0.3 % 0.0-0.5 Normal (applies to non-nu meric results) [facility] Nucleated RBCs 0.00 % 0.00-0.20 Normal (applies to non-numeric r esults) [facility] Abs. Neutrophils 4.40 x1000/ul 1.92-8.31 Normal (applies to non-numeric results) [facility] Abs. Lymphocyte 1.53 x1000/ul 1.20-3.70 Normal (applies to non-n umeric results) [facility] Abs. Monocytes 0.73 x1000/ul 0.14-0.97 Normal (applies to non-nu meric results) [facility] Abs. Eosinophils 0.36 x1000/ul 0.00-0.76 Normal (applie s to non-numeric results) [facility] Abs. Basophils 0.04 x1000/ul 0.00-0.22 Normal (applies to non-n umeric results) [facility] Abs. Immature Gran. 0.02 x1000/ul 0.00-0.02 Normal (appl ies to non-numeric results) [facility] Abs. Nucleated RBCs 0.00 x1000/ul 0.00-0.02 Normal (appl ies to non-numeric results) [facility] The above 24 analytes were performed by [facility] [id number] [place] [address],[id number],[place] [address] ID Date Data Source [id number] 04/02/2020 11:00:00 PM EST [facility] Name Value Range Interpretation Code Description Data Danielle rce(s) Supporting Document(s) :PrThr:Pt:Respiratory:Ord:Probe.amp.tar Negative [facility] This lab was ordered by [facility] in Lab Site and reported by [facility]. ID Date Data Source [id number] 04/03/2020 02:51:00 PM EST [facility] Name Value Range Interpretation Code Description Data Danielle rce(s) Supporting Document(s) CRSP SARS-CoV-2 (RT)-PCR Assay Negative Negative N ormal (applies to non-numeric results) [facility] The [place] FDA has made th is test available under anemergency access mechanism called Emergency Use Authorization (EUA). TheEUA is supported by the coordinating producer of Health and Human Services (HHSs)declaration that circumstances exist to justify the emergency use of invitro diagnostics (IVDs) for the detection and/or diagnosis of the virusthat causes COVID-19.Test performed at [facility] located at [facility], [address] [place] [address]. First Test No [facility] Employed in healthcare No [facility] Symptomatic as defined by CDC No [facility] Date of Symptom Onset NA Health system System Hospitalized No [facility] Resident in a congregate care setting Yes [facility] No [facility] Intensive Care No [facility] The above 9 analytes were performed by [facility] [place] [address] ID Date Data Source [id number] 04/02/2020 02:07:00 PM EST [facility] Name Value Range Interpretation Code Description Data Danielle rce(s) Supporting Document(s) AST 18 IU/L 15-37 Normal (applies to non-numeric resul ts) [facility] Sulfasalazine and sulfapyridine have the potential to falsely depressAspartate Aminotransferase results. Baseline values before medication administration are recommended. ALT 30 IU/L 16-61 Normal (applies to non-numeric resul ts) [facility] Sulfasalazine and sulfapyridine have the potential to falsely depressAlanine Aminotransferase results. Baseline values before medication administration are recommended. Alkaline Phosphatase 115 mIU/ml 50-136 Normal (applies to n on-numeric results) [facility] Total Bilirubin 0.20 mg/dl 0.20-1.00 Normal (applies to non-numeric results) [facility] Blood Urea Nitrogen 20 mg/dl 7-18 Above high normal [facility] Creatinine 0.78 mg/dl 0.67-1.17 Normal (applies to non-numeric resul ts) [facility] N-Acetylcysteine (NAC) and Metamizole hearn ve the potential to falselydepress Creatinine results. Baseline values before medication adminstration are recommended. Patients undergoing treatment with phenindione will have falselydepressed results. Patients on phenindione therapy should be tested with an alternativeCREA method.Toxic levels of acetaminophen may lead to falsely depressed results forpatient samples. Glomerular Filtration Rate >90.00 mL/min/1.73m2 [facility] GFR Reference Ranges:Normal Function or Mild Renal Disease,if clinically at risk:>or= 60Moderately decreased:30 - 59Severely decreased:15 - 29Renal Failure:<15 Please note that the MDRD equation requires an additional adjustment forAfrican-Americans (multiply the GFR result by 1.210).Glomarular Filtration Rate (GFR) is estimated based on the MDRDequation, which assumes a steady state for creatinine (Florinda Int Med 139/2 137-149, 2003), as recommended by the Nationaldney Disease Education Program in conjunction with the National Institutes of Health and the National KidneyFoundation. The [place] method used in calculating this result is traceable to IDWA standards. Glucose 64 mg/dl 70-110 Below low normal [facility] Sulfasalazine has the potential to false ly depress Glucose results. Sulfapyridine has the potential to falsely elevate Glucose results. Baseline values before medication administration are recommended. Calcium 9.5 mg/dl 8.5-10.1 Normal (applies to non-numeric resul ts) [facility] Total Protein 8.0 g/dl 6.4-8.2 Normal (applies to non-numeric re sults) [facility] Albumin 3.8 g/dl 3.4-5.0 Normal (applies to non-numeric resul ts) [facility] Sodium 141 mEq/L 136-145 Normal (applies to non-numeric resul ts) [facility] Potassium 4.9 mEq/L 3.5-5.1 Normal (applies to non-numeric resul ts) [facility] Chloride 107.0 mEq/L 98.0-107.0 Normal (applies to non-numeric resu lts) [facility] Carbon Dioxide 28.0 mMol/L 21.0-32.0 Normal (applies to non-numeric results) [facility] Anion Gap 10.9 7.0-15.0 Normal (applies to non-numeric resul ts) [facility] The above 16 analytes were performed by [facility] [id number] [place] [address],[facility]#: [id number],[place] [address] ID Date Data Source [id number] 04/02/2020 02:07:00 PM EST [facility] Name Value Range Interpretation Code Description Data Danielle rce(s) Supporting Document(s) C-Reactive Protein (Non-Cardiac) 13.70 mg/L 0.00-3.00 Above high nor mal [facility] The above 1 analytes were performed by [facility] [id number] [facility], ,[place] [address] ID Date Data Source [id number] 04/02/2020 01:51:00 PM EST [facility] Name Value Range Interpretation Code Description Data Danielle rce(s) Supporting Document(s) WBC 8.30 x1000/ul 4.80-10.00 Normal (applies to non-numeric re sults) [facility] RBC 5.08 x1Mil/ul 4.70-6.10 Normal (applies to non-numeric re sults) [facility] Hemoglobin 12.6 g/dl 14.0-18.0 Below low normal [facility] Hematocrit 43.1 % 42.0-52.0 Normal (applies to non-numeric resul ts) [facility] MCV 84.8 fL 80.0-94.0 Normal (applies to non-numeric resul ts) [facility] MCH 24.8 pg 27.0-31.0 Below low normal [facility] MCHC 29.2 g/dl 32.2-37.0 Below low normal [facility] RDW 19.0 % 11.5-14.5 Above high normal [facility] Platelet Count 456 x1000/ul 130-400 Above high normal M [facility] MPV 9.4 fL 9.4-12.4 Normal (applies to non-numeric resul ts) [facility] Neutrophils 60.7 % 40.0-74.0 Normal (applies to non-numeric resu lts) [facility] Lymphocytes 24.2 % 19.0-48.0 Normal (applies to non-numeric resu lts) [facility] Monocytes 10.2 % 3.4-9.0 Above high normal [facility] Eosinophils 4.0 % 0.0-7.0 Normal (applies to non-numeric resu lts) [facility] Basophils 0.8 % 0.0-2.0 Normal (applies to non-numeric resul ts) [facility] Immature Granulocytes 0.1 % 0.0-0.5 Normal (applies to non-nu meric results) [facility] Nucleated RBCs 0.00 % 0.00-0.20 Normal (applies to non-numeric r esults) [facility] Abs. Neutrophils 5.03 x1000/ul 1.92-8.31 Normal (applies to non-numeric results) [facility] Abs. Lymphocyte 2.01 x1000/ul 1.20-3.70 Normal (applies to non-n umeric results) [facility] Abs. Monocytes 0.85 x1000/ul 0.14-0.97 Normal (applies to non-nu meric results) [facility] Abs. Eosinophils 0.33 x1000/ul 0.00-0.76 Normal (applie s to non-numeric results) [facility] Abs. Basophils 0.07 x1000/ul 0.00-0.22 Normal (applies to non-n umeric results) [facility] Abs. Immature Gran. 0.01 x1000/ul 0.00-0.02 Normal (appl ies to non-numeric results) [facility] Abs. Nucleated RBCs 0.00 x1000/ul 0.00-0.02 Normal (appl ies to non-numeric results) [facility] The above 24 analytes were performed by [facility] [id number] [place] [address], ,[place] [address] ID Date Data Source [id number] 04/02/2020 01:41:00 PM EST [facility] Name Value Range Interpretation Code Description Data Danielle rce(s) Supporting Document(s) Sedimentation Rate 34 mm/hr 0-15 Above high normal [facility] The above 1 analytes were performed by [facility] [id number] [place] [address], ,[place] [address] ID Date Data Source [id number] 04/01/2020 07:17:02 PM EST [facility] Name Value Range Interpretation Code Description Data Danielle rce(s) Supporting Document(s) Progress Notes [facility] [id number] lbm [file] [id number]= ID Date Data Source [id number] 03/26/2020 11:00:00 AM EST [facility] Name Value Range Interpretation Code Description Data Danielle rce(s) Supporting Document(s) :PrThr:Pt:Respiratory:Ord:Probe.amp.tar Negative [facility] This lab was ordered by [facility] in Lab Site and reported by [facility]. ID Date Data Source [id number] 03/28/2020 08:21:00 AM EST [facility] Name Value Range Interpretation Code Description Data Danielle rce(s) Supporting Document(s) CRSP SARS-CoV-2 (RT)-PCR Assay Negative Negative N ormal (applies to non-numeric results) [facility] The [place] ([place] FDA has made th is test available under anemergency access mechanism called Emergency Use Authorization (EUA). TheEUA is supported by the coordinating producer of Health and Human Services (HHSs)declaration that circumstances exist to justify the emergency use of invitro diagnostics (IVDs) for the detection and/or diagnosis of the virusthat causes COVID-19.Test performed at [facility] located at [facility], [address] [place] [id number]. First Test No [facility] Employed in healthcare No [facility] Symptomatic as defined by CDC No [facility] Hospitalized No [facility] Resident in a congregate care setting Yes [facility] No [facility] Intensive Care No [facility] The above 8 analytes were performed by [facility] [place] [address] ID Date Data Source [id number] 03/24/2020 04:38:00 PM EST [facility] Name Value Range Interpretation Code Description Data Danielle rce(s) Supporting Document(s) WBC 9.67 x1000/ul 4.80-10.00 Normal (applies to non-numeric re sults) [facility] RBC 4.44 x1Mil/ul 4.70-6.10 Below low normal [facility] Hemoglobin 10.9 g/dl 14.0-18.0 Below low normal [facility] Hematocrit 36.8 % 42.0-52.0 Below low normal [facility] MCV 82.9 fL 80.0-94.0 Normal (applies to non-numeric resul ts) [facility] MCH 24.5 pg 27.0-31.0 Below low normal [facility] MCHC 29.6 g/dl 32.2-37.0 Below low normal [facility] RDW 18.5 % 11.5-14.5 Above high normal [facility] Platelet Count 493 x1000/ul 130-400 Above high normal M [facility] MPV 8.6 fL 9.4-12.4 Below low normal [facility] Nucleated RBCs 0.00 % 0.00-0.20 Normal (applies to non-numeric r esults) [facility] Abs. Nucleated RBCs 0.00 x1000/ul 0.00-0.02 Normal (appl ies to non-numeric results) [facility] The above 12 analytes were performed by [facility] [id number] [place] [address], ,[place] [address] ID Date Data Source [id number] 03/24/2020 04:28:00 PM [facility] Name Value Range Interpretation Code Description Data Danielle rce(s) Supporting Document(s) Sedimentation Rate 84 mm/hr 0-15 Above high normal [facility] The above 1 analytes were performed by [facility] [id number] [place] [address], ,[place] [address] ID Date Data Source [id number] 03/24/2020 04:08:00 PM [facility] Name Value Range Interpretation Code Description Data Danielle rce(s) Supporting Document(s) C-Reactive Protein (Non-Cardiac) 25.00 mg/L 0.00-3.00 Above high nor mal [facility] The above 1 analytes were performed [facility] [id number] [place] [address], ,[place] [address] ID Date Data Source [id number] 03/24/2020 04:08:00 PM [facility] Name Value Range Interpretation Code Description Data Danielle rce(s) Supporting Document(s) AST 16 IU/L 15-37 Normal (applies to non-numeric resul ts) [facility] Sulfasalazine and sulfapyridine have the potential to falsely depressAspartate Aminotransferase results. Baseline values before medication administration are recommended. ALT 26 IU/L 16-61 Normal (applies to non-numeric resul ts) [facility] Sulfasalazine and sulfapyridine have the potential to falsely depressAlanine Aminotransferase results. Baseline values before medication administration are recommended. Alkaline Phosphatase 110 mIU/ml 50-136 Normal (applies to n on-numeric results) [facility] Total Bilirubin 0.10 mg/dl 0.20-1.00 Below low normal [facility] Blood Urea Nitrogen 19 mg/dl 7-18 Above high normal [facility] Creatinine 0.84 mg/dl 0.67-1.17 Normal (applies to non-numeric resul ts) [facility] N-Acetylcysteine (NAC) and Metamizole hearn ve the potential to falselydepress Creatinine results. Baseline values before medication adminstration are recommended. Patients undergoing treatment with phenindione will have falselydepressed results. Patients on phenindione therapy should be tested with an alternativeCREA method.Toxic levels of acetaminophen may lead to falsely depressed results forpatient samples. Glomerular Filtration Rate >90.00 mL/min/1.73m2 [facility] GFR Reference Ranges:Normal Function or Mild Renal Disease,if clinically at risk:>or= 60Moderately decreased:30 - 59Severely decreased:15 - 29Renal Failure:<15 Please note that the MDRD equation requires an additional adjustment forAfrican-Americans (multiply the GFR result by 1.210).Glomarular Filtration Rate (GFR) is estimated based on the MDRDequation, which assumes a steady state for creatinine (Florinda Int Med 139/2 137-149, 2003), as recommended by the NationalKidney Disease Education Program in conjunction with the National Institutes of Health and the National KidneyFoundation. The [place] method used in calculating this result is traceable to IDMS standards. Glucose 84 mg/dl 70-110 Normal (applies to non-numeric resul ts) [facility] Sulfasalazine has the potential to false ly depress Glucose results. Sulfapyridine has the potential to falsely elevate Glucose results. Baseline values before medication administration are recommended. Calcium 8.9 mg/dl 8.5-10.1 Normal (applies to non-numeric resul ts) [facility] Total Protein 7.6 g/dl 6.4-8.2 Normal (applies to non-numeric re sults) [facility] Albumin 3.2 g/dl 3.4-5.0 Below low normal [facility] Sodium 139 mEq/L 136-145 Normal (applies to non-numeric resul ts) [facility] Potassium 5.2 mEq/L 3.5-5.1 Above high normal [facility] Chloride 106.0 mEq/L 98.0-107.0 Normal (applies to non-numeric resu lts) [facility] Carbon Dioxide 27.2 mMol/L 21.0-32.0 Normal (applies to non-numeric results) [facility] Anion Gap 11.0 7.0-15.0 Normal (applies to non-numeric resul ts) [facility] The above 16 analytes were performed by [facility] [id number] [place] [address],[facility]#: [id number],[place] [address] ID Date Data Source [id number] 03/20/2020 01:18:11 PM EST [facility] Name Value Range Interpretation Code Description Data Danielle rce(s) Supporting Document(s) Telephone Encounter [facility] [id number] lbm [file] [id number]= ID Date Data Source [id number] 03/25/2020 11:47:00 AM EST [facility] Name Value Range Interpretation Code Description Data Danielle rce(s) Supporting Document(s) Culture Result No Growth After [address] [facility] The above 1 analytes were performed by [facility] [id number], ,[place] [address] ID Date Data Source [id number] 03/22/2020 07:10:00 PM EST [facility] Name Value Range Interpretation Code Description Data Danielle rce(s) Supporting Document(s) SARS-CoV-2 & Flu A/B Specimen Source: Nasopharynx [facility] Patient Ethnicity: Unknown [facility] ADDITIONAL INFORMATIO N This PCR test is performed using the hernan SARS-CoV-2 andInfluenza A/B assay ([employer] on [employer], and it has received EmergencyUse Authorization (EUA) by the U.S. Food and DrugAdministration.Fact sheets for this Emergency Use Authorization (EUA)assay can be found at the following links:https://www.fda.gov/media/856962/download for HealthcareProvidershttps://www.fda.gov/media/275943/download for PatientsTest Performed by:[address] [address] Director: Flo Rodriguez M.D. Ph.D.; CLIA# [id number] Patient Race: Unknown [facility] SARS CoV-2 RNA PCR Undetected Undetected Normal (appli es to non-numeric results) [facility] SARS-CoV-2 RNA absent. This result does not rule outCOVID-19 in the patient, as the sensitivity of the testdepends on the timing of the specimen collection and thequality of the specimen. Result should be correlated withpatient's history and clinical presentation. Influenza A RNA PCR Undetected Undetected Normal (appl ies to non-numeric results) [facility] Influenza A RNA absent. Influenza B RNA PCR Undetected Undetected Normal (appl ies to non-numeric results) [facility] Influenza B RNA absent.The above 6 yamilex andrew were performed by Samson Tellja ([id number]) ID Date Data Source [id number] 03/25/2020 11:46:00 AM EST [facility] Name Value Range Interpretation Code Description Data Danielle rce(s) Supporting Document(s) Culture Result No Growth After 5 Days [facility] The above 1 analytes were performed by [facility] [id number], ,[place] [address] ID Date Data Source [id number] 03/19/2020 04:41:00 PM EST [facility] Name Value Range Interpretation Code Description Data Danielle rce(s) Supporting Document(s) AST 12 IU/L 15-37 Below low normal [facility] Sulfasalazine and sulfapyridine have the potential to falsely depressAspartate Aminotransferase results. Baseline values before medication administration are recommended. ALT 28 IU/L 16-61 Normal (applies to non-numeric resul ts) [facility] Sulfasalazine and sulfapyridine have the potential to falsely depressAlanine Aminotransferase results. Baseline values before medication administration are recommended. Alkaline Phosphatase 87 mIU/ml 50-136 Normal (applies to non-num emmanuel results) [facility] Total Bilirubin 0.10 mg/dl 0.20-1.00 Below low normal [facility] Blood Urea Nitrogen 22 mg/dl 7-18 Above high normal [facility] Creatinine 0.67 mg/dl 0.67-1.17 Normal (applies to non-numeric resul ts) [facility] N-Acetylcysteine (NAC) and Metamizole hearn ve the potential to falselydepress Creatinine results. Baseline values before medication adminstration are recommended. Patients undergoing treatment with phenindione will have falselydepressed results. Patients on phenindione therapy should be tested with an alternativeCREA method.Toxic levels of acetaminophen may lead to falsely depressed results forpatient samples. Glomerular Filtration Rate >90.00 mL/min/1.73m2 [facility] GFR Reference Ranges:Normal Function or Mild Renal Disease,if clinically at risk:>or= 60Moderately decreased:30 - 59Severely decreased:15 - 29Renal Failure:<15 Please note that the MDRD equation requires an additional adjustment forAfrican-Americans (multiply the GFR result by 1.210).Glomarular Filtration Rate (GFR) is estimated based on the MDRDequation, which assumes a steady state for creatinine (Florinda Int Med 139/2 137-149, 2003), as recommended by the Nationaldney Disease Education Program in conjunction with the National Institutes of Health and the National KidneyFoundation. The [place] method used in calculating this result is traceable to IDWA standards. Glucose 113 mg/dl 70-110 Above high normal [facility] Sulfasalazine has the potential to false ly depress Glucose results. Sulfapyridine has the potential to falsely elevate Glucose results. Baseline values before medication administration are recommended. Calcium 8.7 mg/dl 8.5-10.1 Normal (applies to non-numeric resul ts) [facility] Total Protein 7.0 g/dl 6.4-8.2 Normal (applies to non-numeric re sults) [facility] Albumin 2.8 g/dl 3.4-5.0 Below low normal [facility] Sodium 142 mEq/L 136-145 Normal (applies to non-numeric resul ts) [facility] Potassium 4.2 mEq/L 3.5-5.1 Normal (applies to non-numeric resul ts) [facility] Chloride 109.0 mEq/L 98.0-107.0 Above high normal [facility] Carbon Dioxide 25.4 mMol/L 21.0-32.0 Normal (applies to non-numeric results) [facility] Anion Gap 11.8 7.0-15.0 Normal (applies to non-numeric resul ts) [facility] The above 16 analytes were performed by [facility] [address],[facility] [id number],[place] [address] ID Date Data Source [id number] 03/19/2020 04:41:00 PM EST [facility] Name Value Range Interpretation Code Description Data Danielle rce(s) Supporting Document(s) C-Reactive Protein (Non-Cardiac) 71.90 mg/L 0.00-3.00 Above high nor mal [facility] The above 1 analytes were performed by [facility] [id number] [facility], ,[place] [address] ID Date Data Source [id number] 03/19/2020 04:11:00 PM EST [facility] Name Value Range Interpretation Code Description Data Danielle rce(s) Supporting Document(s) WBC 4.06 x1000/ul 4.80-10.00 Below low normal [facility] RBC 3.92 x1Mil/ul 4.70-6.10 Below low normal [facility] Hemoglobin 9.6 g/dl 14.0-18.0 Below low normal [facility] Hematocrit 32.3 % 42.0-52.0 Below low normal [facility] MCV 82.4 fL 80.0-94.0 Normal (applies to non-numeric resul ts) [facility] MCH 24.5 pg 27.0-31.0 Below low normal [facility] MCHC 29.7 g/dl 32.2-37.0 Below low normal [facility] RDW 18.1 % 11.5-14.5 Above high normal [facility] Platelet Count 461 x1000/ul 130-400 Above high normal M [facility] MPV 8.6 fL 9.4-12.4 Below low normal [facility] Nucleated RBCs 0.00 % 0.00-0.20 Normal (applies to non-numeric r esults) [facility] Abs. Nucleated RBCs 0.00 x1000/ul 0.00-0.02 Normal (appl ies to non-numeric results) [facility] The above 12 analytes were performed by [facility] [id number] [facility], ,[place] [address] ID Date Data Source [id number] 03/19/2020 04:00:00 PM [facility] Name Value Range Interpretation Code Description Data Danielle rce(s) Supporting Document(s) Sedimentation Rate 99 mm/hr 0-15 Above high normal [facility] The above 1 analytes were performed by [facility] [id number] [place] [address],[facility]#: [id number],[place] [address] ID Date Data Source [id number] 03/18/2020 01:24:43 PM EST [facility] Name Value Range Interpretation Code Description Data Danielle rce(s) Supporting Document(s) Progress Notes [facility] KSSDSh3yYdJPSxHb94/TZEncTCPfr0JzVAgkOAc5VEuhEZZoS5YpDKR3eX3oMHD8GFhQTdFyIzOkFAV2 lbm [file] ICAgICAgICAgICAgICAgICAgICAgICAgICAgICAgIC AgICAgICAgICAgICAgICAgICAgICAgICAgICAgICAgICAgICAgICANCiAgICAgICAgICAgICAgICAgIC AgICAgICAgICAgICAgICAgICAgICAgICAgICAgICAgICAgICAgICAgICAgICAgICAgICAgICAgICAgIC AgICAgICAgICAgICAgICAgICAgICANCiAgICAgICAg ICAgICAgICAgICAgICAgICAgICAgICAgICAgICAgICAgICAgICAgICAgICAgICAgICAgICAgICAgICAg ICAgICAgICAgICAgICAgICAgICAgICAgICAgICAgICANCiAgICAgICAgICAgICAgICAgICAgICAgICAg ICAgICAgICAgICAgICAgICAgICAgICAgICAgICAgIC AgICAgICAgICAgICAgICAgICAgICAgICAgICAgICAgICAgICAgICAgICANCiAgICAgICAgICAgICAgIC AgICAgICAgICAgICAgICAgICAgICAgICAgICAgICAgICAgICAgICAgICAgICAgICAgICAgICAgICAgIC AgICAgICAgICAgICAgICAgICAgICAgICANCiAgICAg ICAgICAgICAgICAgICAgICAgICAgICAgICAgICAgICAgICAgICAgICAgICAgICAgICAgICAgICAgICAg ICAgICAgICAgICAgICAgICAgICAgICAgICAgICAgICAgICANCiAgICAgICAgICAgICAgICAgICAgICAg ICAgICAgICAgICAgICAgICAgICAgICAgICAgICAgIC AgICAgICAgICAgICAgICAgICAgICAgICAgICAgICAgICAgICAgICAgICAgICANCiAgICAgICAgICAgIC AgICAgICAgICAgICAgICAgICAgICAgICAgICAgICAgICAgICAgICAgICAgICAgICAgICAgICAgICAgIC AgICAgICAgICAgICAgICAgICAgICAgICAgICANCiAg ICAgICAgICAgICAgICAgICAgICAgICAgICAgICAgICAgICAgICAgICAgICAgICAgICAgICAgICAgICAg ICAgICAgICAgICAgICAgICAgICAgICAgICAgICAgICAgICAgICANCiAgICAgICAgICAgICAgICAgICAg ICAgICAgICAgICAgICAgICAgICAgICAgICAgICAgIC AgICAgICAgICAgICAgICAgICAgICAgICAgICAgICAgICAgICAgICAgICAgICAgICANCjw/pTVoO5bgxW ZuyxQ1L4asZz2NEy6TER5bt6UoEQMrGIftrdQqKawBSwMgWWBiRzdWOjj6XIufEP0PvNWrD7FyX1GaZP zyHZ3CGRXkCUEmkAAoNUJrDPEwYbB6VSTfCLusGH1K zPPvLJjrSEXfFEWbGmGsGJVyJKEeBLBlWK7NPISuE964wfImSt2EUl5SIrFmSX1zmk8FPhcjTUUvBjqU Tdd3UVtsJC3MoXWnkYVxUQJnRPMDNwCiY2dnc4WuUpJvDPJJECsoZW8Yo7WnbDVyIUf+On7GDT9ul2At KEqfSZFiEQ2tnr1DIGmOVgNcG4JgkAicQRHvc5htLS TqBM2xrJNyMCV5RHHsn13eMZOKzLejj08mOD8PSXS8WRWpOB3cDXNvQVQ8QnN7SSRKDD7BXMBfZBKvwG VqCFQjBEGVUH0AXCmoPPK7SltmtcPnnYDqEYudAL7IQYDkaaQlBkrdPZNOMDw+Zl6WDA4kw6OpHZfeCC BzKF5xsq6SGCgXIoCgY5Y1wYPqR6G0HKsaWo7POHHs DHPcCzdyIFCTHBttFY0XAB2jspF2VG9LuNLzGSDxPUEdeLAgDCx5J43wzFQwUWipJP5GRZJ+Mandeep+Pg0K UXXsUSDwRWVfZlMpZMLJCqYaB2AtG7NLg3ZuB3OtWO66dOlryoEzFCsyFB1SMQ9uDYQlEDLMCX1NsIYa pA2ktbVaXXUgPSJMYkMpS98ayDIiQXCoXQE1BTPyVm 4CJSGkK3FjxtMizUwahfOaOTVaLLLUJT3XYQoxkwKfaHXjkAweDY21rJxdHZ8PSu8MTiPuVY4zog6FzF KcYz9XCWStQx4UWINzWKUdLVCbSNN8NTVuKiBgJVzxIGPdDWAoWLH3IYVgJSQvHR8KHnBtXWJyNsP1Hp BwXXBgKOAvnx8ICCYjEIBcUMrmMhYmQYWnIVByTCck AQRnQHBqGVX3CGYrXIXlSI4BHiYxETBdWYI4NLTpPNSeQHWzzf0JWHVdTISeTgb9LtMsYTNcYNNqRTlx WVCbNDL2STH1ONMuLUYnLK6JVrWeUYLrOYQpFeHsZVLnMHYwjm7FHBQsCAEnTHS2DZYfQVSjBSQySGeu FFFuZJM8BigdILNvZIAiPQ7CPjZjGROkIUxjZFHpAW MyDVDxjm1QTAChMBErQYU1IcSfQTTpMNKwWMgvWETvXXV2NfNcWQPgKLKdNV5HCaIwNWNoHKQ7OVAoIL GxHFTrlt4AMICuCACqKKe7DDSwHBOoYJHvDTarJYLmEKZwCMjlTJTbSLTkTU8TSjHwTCVaLkW4TrZlPN ThRZNvsy3FIDSkYKBvElc8CjTsTDHfCDLePGpvWZKa APQhIME6VSDsRWGeNX8IGqQtBUBlQzLzOQYjAAXyLPUkpm3TUSIjOINgSMI6YPExFUDrYJRsRZpuGVXa MRD0Rqi4SHFcSXTuND8YRgOlNHIdAfY1WgZiOYPjWWFdcj9HLJPsIIWzAFW6SpNyYTIaUBOsNNllNANn EKG6JDj6CHKhGEOtSU4BSkFeSWMwFnH6ANAoYVVuIQ Svlw2CPYLrITOfXxt8TfXiBLXyNTJwXRimFDKcUIR4Psj4LQTdSKPjBD2BStHdPBKzQwf4AyHfHPEoBJ Dluh7ZCVNeSGTbNTvxUmRfFZWcLFLyOAtxLVImLGT1NLR6RUZpLBFeBN7QYaFiUFknCSACJvb5IRgiV2 [id number]j [id number]= ID Date Data Source [id number] 03/12/2020 03:52:00 PM EST [facility] Name Value Range Interpretation Code Description Data Danielle rce(s) Supporting Document(s) RBC Morphology \\Present [facility] Hypochromasia \\Slight [facility] Platelet Estimate \\Normal based on slide scan [facility] The above 3 analytes were performed by [facility] [address],[id number],[place] [address] ID Date Data Source [id number] 03/12/2020 03:51:00 PM EST [facility] Name Value Range Interpretation Code Description Data Danielle rce(s) Supporting Document(s) WBC 5.10 x1000/ul 4.80-10.00 Normal (applies to non-numeric re sults) [facility] RBC 4.45 x1Mil/ul 4.70-6.10 Below low normal [facility] Hemoglobin 10.9 g/dl 14.0-18.0 Below low normal [facility] Hematocrit 36.8 % 42.0-52.0 Below low normal [facility] MCV 82.7 fL 80.0-94.0 Normal (applies to non-numeric resul ts) [facility] MCH 24.5 pg 27.0-31.0 Below low normal [facility] MCHC 29.6 g/dl 32.2-37.0 Below low normal [facility] RDW 18.8 % 11.5-14.5 Above high normal [facility] Platelet Count 349 x1000/ul 130-400 Normal (applies to non-numeric results) [facility] MPV 9.0 fL 9.4-12.4 Below low normal [facility] Nucleated RBCs 0.00 % 0.00-0.20 Normal (applies to non-numeric r esults) [facility] Abs. Nucleated RBCs 0.00 x1000/ul 0.00-0.02 Normal (appl ies to non-numeric results) [facility] The above 12 analytes were performed by [facility] [id number] [place] [address], ,[place] [address] ID Date Data Source [id number] 03/12/2020 03:33:00 PM [facility] Name Value Range Interpretation Code Description Data Danielle rce(s) Supporting Document(s) Sedimentation Rate 87 mm/hr 0-15 Above high normal [facility] The above 1 analytes were performed by [facility] [id number] [place] [address], ,[place] [address] ID Date Data Source [id number] 03/12/2020 03:25:00 PM [facility] Name Value Range Interpretation Code Description Data Danielle rce(s) Supporting Document(s) C-Reactive Protein (Non-Cardiac) 134.00 mg/L 0.00-3.00 Above high no rmal [facility] The above 1 analytes were performed [facility] [address] [place] [address], ,[place] [address] ID Date Data Source [id number] 03/12/2020 03:25:00 PM [facility] Name Value Range Interpretation Code Description Data Danielle rce(s) Supporting Document(s) AST 19 IU/L 15-37 Normal (applies to non-numeric resul ts) [facility] Sulfasalazine and sulfapyridine have the potential to falsely depressAspartate Aminotransferase results. Baseline values before medication administration are recommended. ALT 30 IU/L 16-61 Normal (applies to non-numeric resul ts) [facility] Sulfasalazine and sulfapyridine have the potential to falsely depressAlanine Aminotransferase results. Baseline values before medication administration are recommended. Alkaline Phosphatase 108 mIU/ml 50-136 Normal (applies to n on-numeric results) [facility] Total Bilirubin 0.20 mg/dl 0.20-1.00 Normal (applies to non-numeric results) [facility] Blood Urea Nitrogen 19 mg/dl 7-18 Above high normal [facility] Creatinine 0.68 mg/dl 0.67-1.17 Normal (applies to non-numeric resul ts) [facility] N-Acetylcysteine (NAC) and Metamizole hearn ve the potential to falselydepress Creatinine results. Baseline values before medication adminstration are recommended. Patients undergoing treatment with phenindione will have falselydepressed results. Patients on phenindione therapy should be tested with an alternativeCREA method.Toxic levels of acetaminophen may lead to falsely depressed results forpatient samples. Glomerular Filtration Rate >90.00 mL/min/1.73m2 [facility] GFR Reference Ranges:Normal Function or Mild Renal Disease,if clinically at risk:>or= 60Moderately decreased:30 - 59Severely decreased:15 - 29Renal Failure:<15 Please note that the MDRD equation requires an additional adjustment forAfrican-Americans (multiply the GFR result by 1.210).Glomarular Filtration Rate (GFR) is estimated based on the MDRDequation, which assumes a steady state for creatinine (Florinda Int Med 139/2 137-149, 2003), as recommended by the NationalKidney Disease Education Program in conjunction with the National Institutes of Health and the National KidneyFoundation. The [place] method used in calculating this result is traceable to IDWA standards. Glucose 81 mg/dl 70-110 Normal (applies to non-numeric resul ts) [facility] Sulfasalazine has the potential to false ly depress Glucose results. Sulfapyridine has the potential to falsely elevate Glucose results. Baseline values before medication administration are recommended. Calcium 9.0 mg/dl 8.5-10.1 Normal (applies to non-numeric resul ts) [facility] Total Protein 7.5 g/dl 6.4-8.2 Normal (applies to non-numeric re sults) [facility] Albumin 3.2 g/dl 3.4-5.0 Below low normal [facility] Sodium 140 mEq/L 136-145 Normal (applies to non-numeric resul ts) [facility] Potassium 4.9 mEq/L 3.5-5.1 Normal (applies to non-numeric resul ts) [facility] Chloride 106.0 mEq/L 98.0-107.0 Normal (applies to non-numeric resu lts) [facility] Carbon Dioxide 26.6 mMol/L 21.0-32.0 Normal (applies to non-numeric results) [facility] Anion Gap 12.3 7.0-15.0 Normal (applies to non-numeric resul ts) [facility] The above 16 analytes were performed by [facility] [id number] [place] [address],[facility]#: [id number],[place] [address] ID Date Data Source [id number] 03/12/2020 09:02:00 AM EST [facility] Name Value Range Interpretation Code Description Data Danielle rce(s) Supporting Document(s) :PrThr:Pt:Respiratory:Ord:Probe.amp.tar [facility] This lab was ordered by [facility] in Lab Site and reported by [facility]. ID Date Data Source [id number] 03/13/2020 03:11:00 PM EST [facility] Name Value Range Interpretation Code Description Data Danielle rce(s) Supporting Document(s) CRSP SARS-CoV-2 (RT)-PCR Assay Negative Negative N ormal (applies to non-numeric results) [facility] The [place] (U.S[place] FDA has made th is test available under anemergency access mechanism called Emergency Use Authorization (EUA). TheEUA is supported by the coordinating producer of Health and Human Services (HHSs)declaration that circumstances exist to justify the emergency use of invitro diagnostics (IVDs) for the detection and/or diagnosis of the virusthat causes COVID-19.Test performed at [facility] located at [facility], [address] [place] [address]. First Test No [facility] Employed in healthcare No [facility] Symptomatic as defined by CDC No [facility] Hospitalized No [facility] Resident in a congregate care setting Yes [facility] No [facility] Intensive Care No [facility] ealt System The above 8 analytes were performed by [facility] [place] [address] ID Date Data Source [id number] 03/05/2020 09:22:00 PM EST [facility] Name Value Range Interpretation Code Description Data Danielle rce(s) Supporting Document(s) AST 20 IU/L 15-37 Normal (applies to non-numeric resul ts) [facility] Sulfasalazine and sulfapyridine have the potential to falsely depressAspartate Aminotransferase results. Baseline values before medication administration are recommended. ALT 34 IU/L 16-61 Normal (applies to non-numeric resul ts) [facility] Sulfasalazine and sulfapyridine have the potential to falsely depressAlanine Aminotransferase results. Baseline values before medication administration are recommended. Alkaline Phosphatase 142 mIU/ml 50-136 Above high normal [facility] Total Bilirubin 0.10 mg/dl 0.20-1.00 Below low normal [facility] Blood Urea Nitrogen 21 mg/dl 7-18 Above high normal [facility] Creatinine 0.73 mg/dl 0.67-1.17 Normal (applies to non-numeric resul ts) [facility] N-Acetylcysteine (NAC) and Metamizole hearn ve the potential to falselydepress Creatinine results. Baseline values before medication adminstration are recommended. Patients undergoing treatment with phenindione will have falselydepressed results. Patients on phenindione therapy should be tested with an alternativeCREA method.Toxic levels of acetaminophen may lead to falsely depressed results forpatient samples. Glomerular Filtration Rate >90.00 mL/min/1.73m2 [facility] GFR Reference Ranges:Normal Function or Mild Renal Disease,if clinically at risk:>or= 60Moderately decreased:30 - 59Severely decreased:15 - 29Renal Failure:<15 Please note that the MDRD equation requires an additional adjustment forAfrican-Americans (multiply the GFR result by 1.210).Glomarular Filtration Rate (GFR) is estimated based on the MDRDequation, which assumes a steady state for creatinine (Florinda Int Med 139/2 137-149, 2003), as recommended by the NationalKidney Disease Education Program in conjunction with the National Institutes of Health and the National KidneyFoundation. The [place] method used in calculating this result is traceable to IDMS standards. Glucose 54 mg/dl 70-110 Below low normal [facility] Sulfasalazine has the potential to false ly depress Glucose results. Sulfapyridine has the potential to falsely elevate Glucose results. Baseline values before medication administration are recommended. Calcium 9.1 mg/dl 8.5-10.1 Normal (applies to non-numeric resul ts) [facility] Total Protein 7.8 g/dl 6.4-8.2 Normal (applies to non-numeric re sults) [facility] Albumin 3.2 g/dl 3.4-5.0 Below low normal [facility] Sodium 140 mEq/L 136-145 Normal (applies to non-numeric resul ts) [facility] Potassium 4.9 mEq/L 3.5-5.1 Normal (applies to non-numeric resul ts) [facility] Chloride 107.0 mEq/L 98.0-107.0 Normal (applies to non-numeric resu lts) [facility] Carbon Dioxide 29.9 mMol/L 21.0-32.0 Normal (applies to non-numeric results) [facility] Anion Gap 8.0 7.0-15.0 Normal (applies to non-numeric resul ts) [facility] The above 16 analytes were performed by [facility] [address] [place] [address], ,[place] [address] ID Date Data Source [id number] 03/05/2020 09:22:00 PM EST [facility] Name Value Range Interpretation Code Description Data Danielle rce(s) Supporting Document(s) C-Reactive Protein (Non-Cardiac) 22.10 mg/L 0.00-3.00 Above high nor mal [facility] The above 1 analytes were performed by [facility] [address] [place] [address], ,[place] [address] ID Date Data Source [id number] 03/05/2020 09:06:00 PM EST [facility] Name Value Range Interpretation Code Description Data Danielle rce(s) Supporting Document(s) WBC 5.76 x1000/ul 4.80-10.00 Normal (applies to non-numeric re sults) [facility] RBC 4.06 x1Mil/ul 4.70-6.10 Below low normal [facility] Hemoglobin 9.9 g/dl 14.0-18.0 Below low normal [facility] Hematocrit 34.2 % 42.0-52.0 Below low normal [facility] MCV 84.2 fL 80.0-94.0 Normal (applies to non-numeric resul ts) [facility] MCH 24.4 pg 27.0-31.0 Below low normal [facility] MCHC 28.9 g/dl 32.2-37.0 Below low normal [facility] RDW 17.9 % 11.5-14.5 Above high normal [facility] Platelet Count 556 x1000/ul 130-400 Above high normal [facility] MPV 9.3 fL 9.4-12.4 Below low normal [facility] Neutrophils 43.2 % 40.0-74.0 Normal (applies to non-numeric resu lts) [facility] Lymphocytes 33.7 % 19.0-48.0 Normal (applies to non-numeric resu lts) [facility] Monocytes 15.1 % 3.4-9.0 Above high normal [facility] Eosinophils 6.6 % 0.0-7.0 Normal (applies to non-numeric resu lts) [facility] Basophils 1.2 % 0.0-2.0 Normal (applies to non-numeric resul ts) [facility] Immature Granulocytes 0.2 % 0.0-0.5 Normal (applies to non-nu meric results) [facility] Nucleated RBCs 0.00 % 0.00-0.20 Normal (applies to non-numeric r esults) [facility] Abs. Neutrophils 2.49 x1000/ul 1.92-8.31 Normal (applies to non-numeric results) [facility] Abs. Lymphocyte 1.94 x1000/ul 1.20-3.70 Normal (applies to non-n umeric results) [facility] Abs. Monocytes 0.87 x1000/ul 0.14-0.97 Normal (applies to non-nu meric results) [facility] Abs. Eosinophils 0.38 x1000/ul 0.00-0.76 Normal (applie s to non-numeric results) [facility] Abs. Basophils 0.07 x1000/ul 0.00-0.22 Normal (applies to non-n umeric results) [facility] Abs. Immature Gran. 0.01 x1000/ul 0.00-0.02 Normal (appl ies to non-numeric results) [facility] Abs. Nucleated RBCs 0.00 x1000/ul 0.00-0.02 Normal (appl ies to non-numeric results) [facility] The above 24 analytes were performed by [facility] [address] [place] [address], ,[place] [address] ID Date Data Source [id number] 03/05/2020 09:01:00 PM EST [facility] Name Value Range Interpretation Code Description Data Danielle rce(s) Supporting Document(s) Sedimentation Rate 82 mm/hr 0-15 Above high normal [facility] The above 1 analytes were performed by [facility] [address] [place], [place] [address]t#: [id number],[place] [address] ID Date Data Source [id number] 03/05/2020 12:00:00 PM EST [facility] Name Value Range Interpretation Code Description Data Danielle rce(s) Supporting Document(s) :PrThr:Pt:Respiratory:Ord:Probe.amp.tar [facility] This lab was ordered by [facility] in Lab Site and reported by [facility]. ID Date Data Source [id number] 03/10/2020 12:31:00 PM EST [facility] Name Value Range Interpretation Code Description Data Danielle rce(s) Supporting Document(s) CRSP SARS-CoV-2 (RT)-PCR Assay Negative Negative N ormal (applies to non-numeric results) [facility] The [place] ([place].S[place] FDA has made th is test available under anemergency access mechanism called Emergency Use Authorization (EUA). TheEUA is supported by the coordinating producer of Health and Human Services (HHSs)declaration that circumstances exist to justify the emergency use of invitro diagnostics (IVDs) for the detection and/or diagnosis of the virusthat causes COVID-19.Test performed at [facility] located at [facility], [address] [place] [address]. First Test No [facility] Employed in healthcare No [facility] Symptomatic as defined by CDC No [facility] Hospitalized No [facility] Resident in a congregate care setting Yes [facility] No [facility] Intensive Care No [facility] ealt System The above 8 [place] [address] ID Date Data Source [id number] 02/27/2020 01:52:00 PM EST [facility] Name Value Range Interpretation Code Description Data Danielle rce(s) Supporting Document(s) SARS coronavirus 2 RNA [facility] This lab [facility] and reported by [facility]. ID Date Data Source [id number] 02/27/2020 02:30:00 PM EST [facility]; [facility] Name Value Range Interpretation Code Description Data Danielle rce(s) Supporting Document(s) ACCULA SARS-COV-2 NEGATIVE NEGATIVE [facility] Testing perfo rmed by nucleic acid amplification.This test has not been FDA cleared or approved. This test has beenauthorized by FDA under an Emergency Use Authorization (EUA). This test isonly authorized for the duration of the declaration that circumstancesexist justifying the authorization of emergency use of in vitro diagnostictests for detection and/or diagnosis of COVID-19 under Section 564(b)(1) ofthe Act, 21 U.S.C. 360bbb-3(b)(1), unless the authorization is terminatedor revoked sooner. Positive results are indicative of the presence xaRTVN-IkT-6 nucleic acid; clinical correlation with patient history andother diagnostic information is necessary to determine patient infectionstatus. Positive results do not rule out bacterial infection orco- infection with other viruses. R [facility], Dept of Path [address] [place] [address] * ID Date Data Source [id number] 02/27/2020 06:54:00 AM EST [facility] Name Value Range Interpretation Code Description Data Danielle rce(s) Supporting Document(s) ESTIMATED GFR (CALCULATED) [facility] EGFR 131 [facility] >59 mL/min/1.73m2 EGFR, -HONDURAN 152 [facility] >59 mL/min/1.80n4Vivn: Persistent reduction for 3 months or more in an eGFR <60 mL/min/1.73m2 defines CKD. Patients with eGFR values >=60 mL/min/1.73m2 may also have CKD if evidence of persistent proteinuria is present. Additional information may be found at [email or web address]. R [facility], Dept of Path [address] [place] [address] * ID Date Data Source [id number] 02/27/2020 06:57:00 AM EST [facility] Name Value Range Interpretation Code Description Data Danielle rce(s) Supporting Document(s) WBC 9.7 x10E3/uL 4.3-10.9 [facility] pital RBC 4.00 x10E6/uL 4.70-6.20 L [facility] spital HEMOGLOBIN 9.9 g/dl 13.0-17.0 L [facility] HEMATOCRIT 32.8 % 39.0-50.0 L [facility] enedina MCV 82.0 fl 82.0-98.0 [facility] MCH 24.8 pg 27.5-33.5 L [facility] MCHC 30.2 g/dl 32.0-36.0 L [facility] RDW 18.3 % 11.5-14.5 H [facility] PLATELET COUNT 699 x10E3/uL 130-400 H [facility] (Slide estimate appears increased) MPV 8.7 fl 8.6-12.6 [facility] SEGMENTED NEUTROPHILS 66.0 % 44.0-74.0 [facility] BAND 0.0 % 0.0-4.0 [facility] LYMPHOCYTES 18.0 % 15.0-45.0 [facility] MONOCYTES 11.0 % 2.0-13.0 [facility] EOSINOPHILS 5.0 % 0.0-6.0 [facility] BASOPHILS 0.0 % 0.0-2.0 [facility] NEUTROPHIL ABSOLUTE 6.4 x10E3/uL 1.4-7.0 [facility] LYMPHOCYTES ABSOLUTE 1.7 x10E3/uL 1.0-3.4 [facility] MONOCYTE ABSOLUTE 1.1 x10E3/uL 0.2-1.0 H [facility] EOSINOPHIL ABSOLUTE 0.5 x10E3/uL 0.0-0.5 [facility] BASOPHIL ABSOLUTE 0.0 x10E3/uL 0.0-0.2 [facility] ANISOCYTOSIS 2+ [facility] pital MICROCYTOSIS 1+ A [facility] pital MACROCYTOSIS 1+ A [facility] pital R [facility], Dept of [address] [address] * ID Date Data Source [id number] 02/27/2020 06:35:00 AM EST [facility] Name Value Range Interpretation Code Description Data Danielle rce(s) Supporting Document(s) DIFFERENTIAL SCAN PERFORMED [facility], Dept of [address] [address] * ID Date Data Source [id number] 02/27/2020 06:54:00 AM [facility] Name Value Range Interpretation Code Description Data Danielle rce(s) Supporting Document(s) GLUCOSE 103 mg/dl 70-100 H [facility] BUN 19 mg/dl 5-21 [facility] CREATININE, SERUM 0.59 mg/dl 0.60-1.30 L [facility] SODIUM 137 mmol/l 136-146 [facility]ina POTASSIUM 4.8 mmol/l 3.5-5.3 [facility]ina CHLORIDE 101 mmol/l 96-109 [facility] CARBON DIOXIDE 26 mmol/l 20-32 [facility] ospital CALCIUM 9.5 mg/dl 8.4-10.4 [facility] BUN/CREATININE RATIO 32.2 6.0-20.0 H [facility] ANION GAP 10.0 mmol/l 7.0-16.0 [facility] OSMOLALITY (CALCULATED) 276 mos/kg 280-300 L [facility], Dept of [address] [address] * ID Date Data Source [id number] 02/26/2020 06:45:00 AM EST [facility] Name Value Range Interpretation Code Description Data Danielle rce(s) Supporting Document(s) WBC 9.3 x10E3/uL 4.3-10.9 [facility] pital RBC 3.99 x10E6/uL 4.70-6.20 L [facility] spital HEMOGLOBIN 9.5 g/dl 13.0-17.0 L [facility]ina HEMATOCRIT 32.5 % 39.0-50.0 L [facility] en[facility]ina MCV 81.5 fl 82.0-98.0 L [facility] MCH 23.8 pg 27.5-33.5 L [facility] MCHC 29.2 g/dl 32.0-36.0 L [facility] RDW 18.2 % 11.5-14.5 H [facility] PLATELET COUNT 642 x10E3/uL 130-400 H [facility] (Slide estimate appears increased) MPV 9.0 fl 8.6-12.6 [facility] SEGMENTED NEUTROPHILS 58.0 % 44.0-74.0 [facility] BAND 0.0 % 0.0-4.0 [facility] LYMPHOCYTES 24.0 % 15.0-45.0 [facility] MONOCYTES 13.0 % 2.0-13.0 [facility] EOSINOPHILS 5.0 % 0.0-6.0 [facility] BASOPHILS 0.0 % 0.0-2.0 [facility] NEUTROPHIL ABSOLUTE 5.4 x10E3/uL 1.4-7.0 [facility] LYMPHOCYTES ABSOLUTE 2.2 x10E3/uL 1.0-3.4 [facility] MONOCYTE ABSOLUTE 1.2 x10E3/uL 0.2-1.0 H [facility] EOSINOPHIL ABSOLUTE 0.5 x10E3/uL 0.0-0.5 [facility] BASOPHIL ABSOLUTE 0.0 x10E3/uL 0.0-0.2 [facility] POLYCHROMASIA 1+ A [facility] spital ANISOCYTOSIS 2+ [facility] pital MICROCYTOSIS 1+ A [facility] pital MACROCYTOSIS 1+ A [facility] pital R [facility], [place] [address] * ID Date Data Source [id number] 02/26/2020 06:06:00 AM EST [facility] Name Value Range Interpretation Code Description Data Danielle rce(s) Supporting Document(s) DIFFERENTIAL SCAN PERFORMED [facility] R [facility], [place] [address] * ID Date Data Source [id number] 02/26/2020 05:54:00 AM EST [facility] Name Value Range Interpretation Code Description Data Danielle rce(s) Supporting Document(s) C-REACTIVE PROTEIN 83.8 mg/L 0.0-5.0 H [facility] [address] [address] * ID Date Data Source [id number] 02/26/2020 05:49:00 AM EST [facility] Name Value Range Interpretation Code Description Data Danielle rce(s) Supporting Document(s) ESTIMATED GFR (CALCULATED) [facility] EGFR 133 [facility] >59 mL/min/1.73m2 EGFR, -HONDURAN 154 [facility] >59 mL/min/1.34z0Cjto: Persistent reduction for 3 months or more in an eGFR <60 mL/min/1.73m2 defines CKD. Patients with eGFR values >=60 mL/min/1.73m2 may also have CKD if evidence of persistent proteinuria is present. Additional information may be found at [email or web address]. R [facility], Dept of [address] [address] * ID Date Data Source [id number] 02/26/2020 05:49:00 AM EST [facility] Name Value Range Interpretation Code Description Data Danielle rce(s) Supporting Document(s) GLUCOSE 95 mg/dl 70-100 [facility] BUN 16 mg/dl 5-21 [facility] CREATININE, SERUM 0.57 mg/dl 0.60-1.30 L [facility] SODIUM 138 mmol/l 136-146 [facility]ina POTASSIUM 4.6 mmol/l 3.5-5.3 [facility] CHLORIDE 100 mmol/l 96-109 [facility] CARBON DIOXIDE 26 mmol/l 20-32 [facility] ospital CALCIUM 9.5 mg/dl 8.4-10.4 [facility] BUN/CREATININE RATIO 28.1 6.0-20.0 H [facility] ANION GAP 12.0 mmol/l 7.0-16.0 [facility] OSMOLALITY (CALCULATED) 277 mos/kg 280-300 L [facility], Dept of [address] [address] * ID Date Data Source [id number] 02/25/2020 09:30:01 AM [facility] Clinical history: Follow-up pneumonia co ugh.PA and lateral views are compared to prior 02/13/2020 examination.As well as a CT chest, from 02/14/2020.There is extensive consolidation, in the left upper lobe this is worse than theprior chest x-ray.There is also worsening consolidation in the right upper lobe.The there is mild cardiomegaly.There is no evidence of significant pleural effusion or pneumothoraxIMPRESSION:Extensive bilateral upper lobe infiltrates are worse from the prior camtyaurwy83/2/2020 examinationFollow-up examination to resolution are suggested to exclude unlikely underlyingmass.Electronically Signed By: JAELYN RONDON, Susante: 02/25/2020 09:28 Name Value Range Interpretation Code Description Data Danielle rce(s) Supporting Document(s) ID Date Data Source [id number] 02/25/2020 07:01:00 AM [facility] Name Value Range Interpretation Code Description Data [facility] rce(s) Supporting Document(s) WBC 11.8 x10E3/uL 4.3-10.9 H [facility] spital RBC 3.83 x10E6/uL 4.70-6.20 [facility] H[facility] 9.5 g/dl 13.0-17.0 L [facility] HEMATOCRIT 31.2 % 39.0-50.0 L [facility] MCV 81.5 fl 82.0-98.0 L [facility] MCH 24.8 pg 27.5-33.5 L [facility] MCHC 30.4 g/dl 32.0-36.0 L [facility] RDW 18.6 % 11.5-14.5 H [facility] PLATELET COUNT 735 x10E3/uL 130-400 H [facility] (Slide estimate appears increased) MPV 8.9 fl 8.6-12.6 [facility] SEGMENTED NEUTROPHILS 72.0 % 44.0-74.0 [facility] BAND 0.0 % 0.0-4.0 [facility] LYMPHOCYTES 13.0 % 15.0-45.0 L [facility] MONOCYTES 11.0 % 2.0-13.0 [facility] EOSINOPHILS 4.0 % 0.0-6.0 [facility] ital BASOPHILS 0.0 % 0.0-2.0 [facility] NEUTROPHIL ABSOLUTE 8.5 x10E3/uL 1.4-7.0 H [facility] LYMPHOCYTES ABSOLUTE 1.5 x10E3/uL 1.0-3.4 [facility] MONOCYTE ABSOLUTE 1.3 x10E3/uL 0.2-1.0 H [facility] EOSINOPHIL ABSOLUTE 0.5 x10E3/uL 0.0-0.5 [facility] BASOPHIL ABSOLUTE 0.0 x10E3/uL 0.0-0.2 [facility] POLYCHROMASIA 1+ A [facility] Ho spital HYPOCHROMIA 1+ A [facility] ital ANISOCYTOSIS 1+ A [facility] pital MICROCYTOSIS 1+ A [facility] pital R [facility], Dept of [address] [place] [address] * ID Date Data Source [id number] 02/25/2020 06:52:00 AM EST [facility] Name Value Range Interpretation Code Description Data Danielle rce(s) Supporting Document(s) ESTIMATED GFR (CALCULATED) [facility] EGFR 129 [facility] >59 mL/min/1.73m2 EGFR, -HONDURAN 149 [facility] >59 mL/min/1.30z8Nxlf: Persistent reduction for 3 months or more in an eGFR <60 mL/min/1.73m2 defines CKD. Patients with eGFR values >=60 mL/min/1.73m2 may also have CKD if evidence of persistent proteinuria is present. Additional information may be found at [email or web address]. R [facility], Dept of [address] [place] [address] * ID Date Data Source [id number] 02/25/2020 06:52:00 AM EST [facility] Name Value Range Interpretation Code Description Data Danielle rce(s) Supporting Document(s) GLUCOSE 106 mg/dl 70-100 H [facility] BUN 15 mg/dl 5-21 [facility] CREATININE, SERUM 0.62 mg/dl 0.60-1.30 [facility] SODIUM 139 mmol/l 136-146 [facility] POTASSIUM 4.8 mmol/l 3.5-5.3 [facility] CHLORIDE 101 mmol/l 96-109 [facility] CARBON DIOXIDE 25 mmol/l 20-32 [facility] ospital CALCIUM 9.2 mg/dl 8.4-10.4 [facility] BUN/CREATININE RATIO 24.2 6.0-20.0 H [facility] ANION GAP 13.0 mmol/l 7.0-16.0 [facility] OSMOLALITY (CALCULATED) 279 mos/kg 280-300 L [facility], [place] [address] * ID Date Data Source [id number] 02/25/2020 06:28:00 AM [facility] Name Value Range Interpretation Code Description Data [facility] rce(s) Supporting Document(s) DIFFERENTIAL SCAN PERFORMED [facility] [place] [address] * ID Date Data Source [id number] 02/24/2020 10:26:00 AM [facility] Name Value Range Interpretation Code Description Data Danielle rce(s) Supporting Document(s) WBC 11.2 x10E3/uL 4.3-10.9 H [facility] spital RBC 3.43 x10E6/uL 4.70-6.20 [facility] HEMOGLOBIN 8.5 g/dl 13.0-17.0 L [facility] HEMATOCRIT 27.7 % 39.0-50.0 L [facility] MCV 80.8 fl 82.0-98.0 L [facility] MCH 24.8 pg 27.5-33.5 L [facility] MCHC 30.7 g/dl 32.0-36.0 L [facility] RDW 18.5 % 11.5-14.5 H [facility] PLATELET COUNT 746 x10E3/uL 130-400 H [facility] (Slide estimate appears increased) MPV 8.8 fl 8.6-12.6 [facility] SEGMENTED NEUTROPHILS 63.0 % 44.0-74.0 [facility] BAND 0.0 % 0.0-4.0 [facility] LYMPHOCYTES 21.0 % 15.0-45.0 [facility] MONOCYTES 13.0 % 2.0-13.0 [facility] EOSINOPHILS 3.0 % 0.0-6.0 [facility] BASOPHILS 0.0 % 0.0-2.0 [facility] NEUTROPHIL ABSOLUTE 7.1 x10E3/uL 1.4-7.0 H [facility] LYMPHOCYTES ABSOLUTE 2.4 x10E3/uL 1.0-3.4 [facility] MONOCYTE ABSOLUTE 1.5 x10E3/uL 0.2-1.0 H [facility] EOSINOPHIL ABSOLUTE 0.3 x10E3/uL 0.0-0.5 [facility] BASOPHIL ABSOLUTE 0.0 x10E3/uL 0.0-0.2 [facility] POLYCHROMASIA 1+ A [facility] spital HYPOCHROMIA 1+ A [facility] ital ANISOCYTOSIS 1+ A [facility] pital MICROCYTOSIS 1+ A [facility] pital POIKILOCYTOSIS 1+ A [facility] ospital OVALOCYTOSIS 1+ A [facility] pital R [facility], Dept of [address] [address] * ID Date Data Source [id number] 02/24/2020 10:24:00 AM EST [facility] Name Value Range Interpretation Code Description Data Danielle rce(s) Supporting Document(s) DIFFERENTIAL SCAN PERFORMED [facility] R [facility], Dept of [place] [id number] * ID Date Data Source [id number] 02/24/2020 10:20:00 AM EST [facility] Name Value Range Interpretation Code Description Data Danielle rce(s) Supporting Document(s) PTT (ON HEPARIN THERAPY) 107.1 seconds 69.0-117.0 [facility] Values within the normal reference range are reflective of Heparin effectwithin the therapeutic range of 0.2-0.4 Heparin U/ml. R [facility], Dept of [place] [id number] * ID Date Data Source [id number] 02/24/2020 09:55:00 AM [facility] Name Value Range Interpretation Code Description Data Danielle rce(s) Supporting Document(s) GLUCOSE 106 mg/dl 70-100 H [facility] BUN 13 mg/dl 5-21 [facility] CREATININE, SERUM 0.64 mg/dl 0.60-1.30 [facility] SODIUM 137 mmol/l 136-146 [facility] POTASSIUM 4.2 mmol/l 3.5-5.3 [facility] CHLORIDE 100 mmol/l 96-109 [facility] [place] CARBON DIOXIDE 26 mmol/l 20-32 [facility] ospital CALCIUM 9.1 mg/dl 8.4-10.4 [facility] BUN/CREATININE RATIO 20.3 6.0-20.0 H [facility] ANION GAP 11.0 mmol/l 7.0-16.0 [facility] OSMOLALITY (CALCULATED) 274 mos/kg 280-300 L [facility], [place] [address] * ID Date Data Source [id number] 02/24/2020 09:55:00 AM [facility] Name Value Range Interpretation Code Description Data Danielle rce(s) Supporting Document(s) ESTIMATED GFR (CALCULATED) [facility] EGFR 127 [facility] >59 mL/min/1.73m2 EGFR, -HONDURAN 147 [facility] >59 mL/min/1.76t1Fjpr: Persistent reduction for 3 months or more in an eGFR <60 mL/min/1.73m2 defines CKD. Patients with eGFR values >=60 mL/min/1.73m2 may also have CKD if evidence of persistent proteinuria is present. Additional information may be found at [email or web address]. R [facility], Dept of [address] [address] * ID Date Data Source [id number] 02/23/2020 04:16:00 PM [facility] Name Value Range Interpretation Code Description Data Danielle rce(s) Supporting Document(s) PTT (ON HEPARIN THERAPY) 89.8 seconds 69.0-117.0 [facility] Values within the normal reference range are reflective of Heparin effectwithin the therapeutic range of 0.2-0.4 Heparin U/ml. R [facility] [address] [address] * ID Date Data Source [id number] 02/23/2020 09:41:00 AM EST [facility] Name Value Range Interpretation Code Description Data Danielle rce(s) Supporting Document(s) PTT (ON HEPARIN THERAPY) 64.5 seconds 69.0-117.0 L [facility] Values within the normal reference range are reflective of Heparin effectwithin the therapeutic range of 0.2-0.4 Heparin U/ml. R [facility], [facility] [address] [address] * ID Date Data Source [id number] 02/23/2020 08:09:00 AM EST [facility] Name Value Range Interpretation Code Description Data Danielle rce(s) Supporting Document(s) ESTIMATED GFR (CALCULATED) [facility] EGFR 131 [facility] >59 mL/min/1.73m2 EGFR, -HONDURAN 152 [facility] >59 mL/min/1.78p7Ejfw: Persistent reduction for 3 months or more in an eGFR <60 mL/min/1.73m2 defines CKD. Patients with eGFR values >=60 mL/min/1.73m2 may also have CKD if evidence of persistent proteinuria is present. Additional information may be found at [email or web address]. R [facility], Dept of [address] [address] * ID Date Data Source [id number] 02/23/2020 08:09:00 AM EST [facility] Name Value Range Interpretation Code Description Data Danielle rce(s) Supporting Document(s) GLUCOSE 106 mg/dl 70-100 H [facility] BUN 10 mg/dl 5-21 [facility] CREATININE, SERUM 0.59 mg/dl 0.60-1.30 L [facility] SODIUM 141 mmol/l 136-146 [facility] [place] POTASSIUM 4.4 mmol/l 3.5-5.3 [facility] [place] CHLORIDE 103 mmol/l 96-109 [facility] CARBON DIOXIDE 26 mmol/l 20-32 [facility] ospital CALCIUM 9.2 mg/dl 8.4-10.4 [facility] BUN/CREATININE RATIO 16.9 6.0-20.0 [facility] ANION GAP 12.0 mmol/l 7.0-16.0 [facility] OSMOLALITY (CALCULATED) 281 mos/kg 280-300 [facility] R [facility], [place] [address] * ID Date Data Source [id number] 02/23/2020 07:44:00 AM EST [facility] Name Value Range Interpretation Code Description Data Danielle rce(s) Supporting Document(s) WBC 11.0 x10E3/uL 4.3-10.9 H [facility] spital RBC 3.46 x10E6/uL 4.70-6.20 L [facility] spital HEMOGLOBIN 8.7 g/dl 13.0-17.0 L [facility] HEMATOCRIT 27.9 % 39.0-50.0 L [facility] MCV 80.6 fl 82.0-98.0 L [facility] MCH 25.1 pg 27.5-33.5 L [facility] MCHC 31.2 g/dl 32.0-36.0 L [facility] RDW 18.0 % 11.5-14.5 H [facility] PLATELET COUNT 675 x10E3/uL 130-400 H [facility] MPV 8.9 fl 8.6-12.6 [facility] SEGMENTED NEUTROPHILS 70.2 % 44.0-74.0 [facility] LYMPHOCYTES 14.3 % 15.0-45.0 L [facility] MONOCYTES 13.0 % 2.0-13.0 [facility] EOSINOPHILS 2.3 % 0.0-6.0 [facility] BASOPHILS 0.2 % 0.0-2.0 [facility] NEUTROPHIL ABSOLUTE 7.7 x10E3/uL 1.4-7.0 H [facility] LYMPHOCYTES ABSOLUTE 1.6 x10E3/uL 1.0-3.4 [facility] MONOCYTE ABSOLUTE 1.4 x10E3/uL 0.2-1.0 H [facility] EOSINOPHIL ABSOLUTE 0.3 x10E3/uL 0.0-0.5 [facility] BASOPHIL ABSOLUTE 0.0 x10E3/uL 0.0-0.2 [facility] R [facility], Dept of Pat h [address] [place] [address] * ID Date Data Source [id number] 02/22/2020 08:33:00 AM EST [facility] Name Value Range Interpretation Code Description Data Danielle rce(s) Supporting Document(s) WBC 15.1 x10E3/uL 4.3-10.9 H [facility] spital RBC 3.30 x10E6/uL 4.70-6.20 L [facility] spital HEMOGLOBIN 8.4 g/dl 13.0-17.0 L [facility] HEMATOCRIT 26.3 % 39.0-50.0 L [facility] MCV 79.7 fl 82.0-98.0 L [facility] MCH 25.5 pg 27.5-33.5 L [facility] MCHC 31.9 g/dl 32.0-36.0 L [facility] RDW 17.8 % 11.5-14.5 [facility] PLATELET COUNT 663 x10E3/uL 130-400 H [facility] (Slide estimate appears increased) MPV 8.6 fl 8.6-12.6 [facility] SEGMENTED NEUTROPHILS 78.0 % 44.0-74.0 H [facility] BAND 0.0 % 0.0-4.0 [facility] LYMPHOCYTES 12.0 % 15.0-45.0 L [facility] ital MONOCYTES 9.0 % 2.0-13.0 [facility] EOSINOPHILS 1.0 % 0.0-6.0 [facility] ital BASOPHILS 0.0 % 0.0-2.0 [facility] NEUTROPHIL ABSOLUTE 11.8 x10E3/uL 1.4-7.0 H [facility] LYMPHOCYTES ABSOLUTE 1.8 x10E3/uL 1.0-3.4 [facility] MONOCYTE ABSOLUTE 1.4 x10E3/uL 0.2-1.0 H [facility] EOSINOPHIL ABSOLUTE 0.2 x10E3/uL 0.0-0.5 [facility] BASOPHIL ABSOLUTE 0.0 x10E3/uL 0.0-0.2 [facility] ANISOCYTOSIS 1+ A [facility] pital MICROCYTOSIS 1+ A [facility] pital MACROCYTOSIS [facility] Ho spital R [facility], Dept of [facility] [address] [place] [address] * ID Date Data Source [id number] 02/22/2020 08:29:00 AM EST [facility] Name Value Range Interpretation Code Description Data Danielle rce(s) Supporting Document(s) DIFFERENTIAL SCAN PERFORMED [facility], Dept of [facility] [address] [place] [address] * ID Date Data Source [id number] 02/22/2020 08:14:00 AM [facility] Name Value Range Interpretation Code Description Data Danielle rce(s) Supporting Document(s) ESTIMATED GFR (CALCULATED) [facility] EGFR 131 [facility] >59 mL/min/1.73m2 EGFR, -HONDURAN 152 [facility] >59 mL/min/1.46n7Etdb: Persistent reduction for 3 months or more in an eGFR <60 mL/min/1.73m2 defines CKD. Patients with eGFR values >=60 mL/min/1.73m2 may also have CKD if evidence of persistent proteinuria is present. Additional information may be found at [email or web address]. R [facility], Dept of Path [address] [place] [address] * ID Date Data Source [id number] 02/22/2020 08:14:00 AM EST [facility] Name Value Range Interpretation Code Description Data Danielle rce(s) Supporting Document(s) GLUCOSE 114 mg/dl 70-100 H [facility] BUN 10 mg/dl 5-21 [facility] CREATININE, SERUM 0.59 mg/dl 0.60-1.30 L [facility] SODIUM 136 mmol/l 136-146 [facility] [place] POTASSIUM 4.0 mmol/l 3.5-5.3 [facility] [place] CHLORIDE 98 mmol/l 96-109 [facility] CARBON DIOXIDE 24 mmol/l 20-32 [facility] ospital CALCIUM 8.6 mg/dl 8.4-10.4 [facility] BUN/CREATININE RATIO 16.9 6.0-20.0 [facility] ANION GAP 14.0 mmol/l 7.0-16.0 [facility] OSMOLALITY (CALCULATED) 272 mos/kg 280-300 L [facility], [place] [address] * ID Date Data Source [id number] 02/22/2020 08:08:00 AM [facility] Name Value Range Interpretation Code Description Data Danielle rce(s) Supporting Document(s) PTT (ON HEPARIN THERAPY) 94.9 seconds 69.0-117.0 [facility] Values within the normal reference range are reflective of Heparin effectwithin the therapeutic range of 0.2-0.4 Heparin U/ml. R [facility], [facility] [place] [address] * ID Date Data Source [id number] 02/22/2020 01:25:00 AM [facility] Name Value Range Interpretation Code Description Data Danielle rce(s) Supporting Document(s) PTT (ON HEPARIN THERAPY) 65.3 seconds 69.0-117.0 [facility] Values within the normal reference range are reflective of Heparin effectwithin the therapeutic range of 0.2-0.4 Heparin U/ml. [facility] [place] [address] * ID Date Data Source [id number] 02/21/2020 08:09:00 PM [facility] Name Value Range Interpretation Code Description Data Danielle rce(s) Supporting Document(s) WBC 12.9 x10E3/uL 4.3-10.9 H [facility] spital RBC 3.48 x10E6/uL 4.70-6.20 L [facility] spital HEMOGLOBIN 8.6 g/dl 13.0-17.0 L [facility] Confirmed on reassay HEMATOCRIT 28.3 % 39.0-50.0 L [facility]ina Confirmed on reassay MCV 81.3 fl 82.0-98.0 L [facility] MCH 24.7 pg 27.5-33.5 L [facility] MCHC 30.4 g/dl 32.0-36.0 L [facility] RDW 18.0 % 11.5-14.5 H [facility] PLATELET COUNT 659 x10E3/uL 130-400 H [facility] MPV 8.6 fl 8.6-12.6 [facility] SEGMENTED NEUTROPHILS 73.7 % 44.0-74.0 [facility] LYMPHOCYTES 13.5 % 15.0-45.0 L [facility] MONOCYTES 10.6 % 2.0-13.0 [facility] EOSINOPHILS 2.0 % 0.0-6.0 [facility] BASOPHILS 0.2 % 0.0-2.0 [facility] NEUTROPHIL ABSOLUTE 9.5 x10E3/uL 1.4-7.0 H [facility] LYMPHOCYTES ABSOLUTE 1.7 x10E3/uL 1.0-3.4 [facility] MONOCYTE ABSOLUTE 1.4 x10E3/uL 0.2-1.0 H [facility] EOSINOPHIL ABSOLUTE 0.3 x10E3/uL 0.0-0.5 [facility] BASOPHIL ABSOLUTE 0.0 x10E3/uL 0.0-0.2 [facility], [place] [address] * ID Date Data Source [id number] 02/21/2020 07:40:00 PM [facility] Name Value Range Interpretation Code Description Data Danielle rce(s) Supporting Document(s) DIFFERENTIAL SCAN PERFORMED [facility], Dept of [facility] [address] [place] [address] * ID Date Data Source [id number] 02/21/2020 06:51:00 PM [facility] Name Value Range Interpretation Code Description Data Danielle rce(s) Supporting Document(s) PTT (ON HEPARIN THERAPY) 53.4 seconds 69.0-117.0 L [facility] Values within the normal reference range are reflective of Heparin effectwithin the therapeutic range of 0.2-0.4 Heparin U/ml. R [facility], Dept of [address] [address] * ID Date Data Source [id number] 02/21/2020 02:56:00 PM [facility] PATIENT: TRINA CAICEDO LOC: Alba Romano,2BILL# : [id number] : 1985 SEX: MORDERED BY: MARIAELENA MORALEZ ORDERED : 02/21/2020 11:43 COLLECTED: 02/21/2020 12:50ORDER : [id number] RECEIVED : 02/21/2020 12:58 TEST NAME [id number] RBC AS1 [id number] transfused 02/21/20 14:56 -- Name Value Range Interpretation Code Description Data Danielle rce(s) Supporting Document(s) ID Date Data Source [id number] 02/21/2020 01:38:00 PM [facility] PATIENT: TRINA CAICEDO LOC: Carly Romano0,2BILL# : [id number] : 1985 SEX: MORDERED BY: MARIAELENA MORALEZ ORDERED : 02/21/2020 11:43 COLLECTED: 02/21/2020 12:50ORDER : [id number] RECEIVED : 02/21/2020 12:58 TEST NAME RESULTABO TYPE O 02/21/20 13:32 SAC1RH TYPE POS 02/21/20 13:33 [id number] SCREEN NEG 02/21/20 13:38 SAC1 - Name Value Range Interpretation Code Description Data Danielle rce(s) Supporting Document(s) ID Date Data Source [id number] 02/21/2020 11:59:00 AM [facility] Name Value Range Interpretation Code Description Data Danielle rce(s) Supporting Document(s) C-REACTIVE PROTEIN 240.1 mg/L 0.0-5.0 H [facility] (Results obtained by dilution) . . R [facility] [address] * ID Date Data Source [id number] 02/21/2020 11:04:00 AM [facility] Name Value Range Interpretation Code Description Data Danielle rce(s) Supporting Document(s) PTT 50.6 seconds 23.7-35.5 [facility] Hos pital Confirmed on reassay R [facility] [place] [address] * ID Date Data Source [id number] 02/21/2020 10:59:00 AM [facility] Name Value Range Interpretation Code Description Data Danielle rce(s) Supporting Document(s) WBC 15.3 x10E3/uL 4.3-10.9 H [facility] Ho spital RBC 2.76 x10E6/uL 4.70-6.20 L [facility] spital HEMOGLOBIN 6.8 g/dl 13.0-17.0 [facility] enedina Confirmed on reassay HEMATOCRIT 22.1 % 39.0-50.0 L [facility] MCV 80.1 fl 82.0-98.0 L [facility] MCH 24.6 pg 27.5-33.5 L [facility] MCHC 30.8 g/dl 32.0-36.0 L [facility] RDW 18.2 % 11.5-14.5 H [facility] PLATELET COUNT 647 x10E3/uL 130-400 H [facility] MPV 8.7 fl 8.6-12.6 [facility] SEGMENTED NEUTROPHILS 78.0 % 44.0-74.0 H [facility] BAND 0.0 % 0.0-4.0 [facility] LYMPHOCYTES 12.0 % 15.0-45.0 L [facility] ital MONOCYTES 9.0 % 2.0-13.0 [facility] EOSINOPHILS 1.0 % 0.0-6.0 [facility] BASOPHILS 0.0 % 0.0-2.0 [facility] NEUTROPHIL ABSOLUTE 11.9 x10E3/uL 1.4-7.0 H [facility] LYMPHOCYTES ABSOLUTE 1.8 x10E3/uL 1.0-3.4 [facility] MONOCYTE ABSOLUTE 1.4 x10E3/uL 0.2-1.0 H [facility] EOSINOPHIL ABSOLUTE 0.2 x10E3/uL 0.0-0.5 [facility] BASOPHIL ABSOLUTE 0.0 x10E3/uL 0.0-0.2 [facility] R [facility], [place] [address] * ID Date Data Source [id number] 02/21/2020 10:57:00 AM EST [facility] Name Value Range Interpretation Code Description Data Danielle rce(s) Supporting Document(s) ESTIMATED GFR (CALCULATED) [facility] EGFR 130 [facility] >59 mL/min/1.73m2 EGFR, -HONDURAN 151 [facility] >59 mL/min/1.33m5Hgmy: Persistent reduction for 3 months or more in an eGFR <60 mL/min/1.73m2 defines CKD. Patients with eGFR values >=60 mL/min/1.73m2 may also have CKD if evidence of persistent proteinuria is present. Additional information may be found at [email or web address]. R [facility], Dept of [address] [address] * ID Date Data Source [id number] 02/21/2020 10:57:00 AM [facility] Name Value Range Interpretation Code Description Data Danielle rce(s) Supporting Document(s) GLUCOSE 110 mg/dl 70-100 H [facility] BUN 10 mg/dl 5-21 [facility] CREATININE, SERUM 0.60 mg/dl 0.60-1.30 [facility] SODIUM 134 mmol/l 136-146 L [facility] POTASSIUM 4.0 mmol/l 3.5-5.3 [facility] CHLORIDE 99 mmol/l 96-109 [facility] CARBON DIOXIDE 26 mmol/l 20-32 [facility] ospital CALCIUM 8.8 mg/dl 8.4-10.4 [facility] BUN/CREATININE RATIO 16.7 6.0-20.0 [facility] ANION GAP 9.0 mmol/l 7.0-16.0 [facility] OSMOLALITY (CALCULATED) 268 mos/kg 280-300 L [facility], Dept of [address] [address] * ID Date Data Source [id number] 02/21/2020 01:18:00 AM [facility] Name Value Range Interpretation Code Description Data Danielle rce(s) Supporting Document(s) PTT 63.3 seconds 23.7-35.5 HH [facility] pital Confirmed on reassay R [facility] ospital, Dept of Path [address] [place] [address] * ID Date Data Source [id number] 02/20/2020 06:16:00 PM [facility] Name Value Range Interpretation Code Description Data Danielle rce(s) Supporting Document(s) PTT 47.9 seconds 23.7-35.5 H [facility] pital R [facility], Dept of [address] [address] * ID Date Data Source [id number] 02/20/2020 01:35:00 PM [facility] Name Value Range Interpretation Code Description Data Danielle rce(s) Supporting Document(s) PTT (ON HEPARIN THERAPY) 40.4 seconds 69.0-117.0 L R [facility] Values within the normal reference range are reflective of Heparin effectwithin the therapeutic range of 0.2-0.4 Heparin U/ml. R [facility], Dept of Path [address] [place] [address], [place] [address] * ID Date Data Source [id number] 02/21/2020 03:39:12 PM [facility] ADDENDUMAddendum:Addendu m:Please note that there is a potential discrepancy with regard to the thoraciclevel demonstrating acute appearing discitis. This was labeled as the T6-7 levelbased upon the MRI examination 02/20/2020. Based upon the patient's CT of theT-spine and CT of the abdomen and pelvis with the lumbosacral junctiondesignated the L5-S1 level, this was described as the T7-8 level.Please keep this in mind if any intervention is contemplated.A [place] message has been communicated to MARCELO MARTINS MD via [employer] system on 02/21/2020 2:43 PM, Message [id number].Electronically Signed By: CHARLES HENRY MDDate: 02/21/2020 15:37ORIGINALMRI thorac ic spineClinical history: Chest pain bacterial endocarditis pneumonia elevated whiteblood cell count chest pain back pain prior cervical and thoracic spine surgeryIV drugTechnique: Sagittal T1, sagittal T2, sagittal proton density, sagittalinversion recovery, axial T1, axial T2-weighted MR images were obtained.Sagittal T1 post gadolinium and axial T1 post gadolinium enhanced images wereobtained through the thoracic spine. MR images obtained on GE 1.5 [employer]canner.Comparison: Ct thoracic spine performed same dayContrast: 12 mg IV Dotarem IV contrast was administered for the exam.Findings:Vertebrae: Thoracic vertebral body maintained. There is no focal marrow lesion.There is no acute fracture seen.Intervertebral Discs: Minimal disc space narrowing at T9- T10. Abnormal discspace narrowing with bright T2 and low T1 signal within the adjacent endplatescompatible with endplate edema. There is minimal enhancement on the postcontrastimages in regards to this area of edema. This corresponds to the area of CTabnormality . There is minimal increased soft tissue density surrounding thevertebral body at the T6-T7 level may represent minimal paraspinal inflammatorymass with minimal enhancement identified at this levelremainder of disc spaces appear overall well maintainedSmall hemangioma within the T12 vertebral body. No focal disc herniation. There is no significant marginal hypertrophic osteophyte formation.Alignment: There is no concerning subluxation.Spinal Cord: No abnormal signal is seen within the spinal cord.Soft Tissues: Visualized soft tissues are unremarkable.No worrisome enhancinglesions are seen.IMPRESSIONEnhancing endplate with endplate edema and with disc space irregularity/abnormalsignal within the disc at the T6-T7 level compatible with discitis. Recommendclinical correlation.A [place] message has been communicated to MARCELO MARTINS MD via [employer] system on 02/20/2020 7:08 PM, Message [id number].Electronically Signed By: DOMONIQUE RONDON, [place]RL[place] HEIGHTSDate: 02/20/2020 19:09 Name Value Range Interpretation Code Description Data Danielle rce(s) Supporting Document(s) ID Date Data Source [id number] 02/20/2020 07:52:00 AM EST [facility] Name Value Range Interpretation Code Description Data Danielle rce(s) Supporting Document(s) WBC 19.2 x10E3/uL 4.3-10.9 H [facility] spital RBC 3.16 x10E6/uL 4.70-6.20 [facility] 7.8 g/dl 13.0-17.0 L [facility] HEMATOCRIT 25.4 % 39.0-50.0 L [facility] MCV 80.4 fl 82.0-98.0 L [facility] MCH 24.7 pg 27.5-33.5 L [facility] MCHC 30.7 g/dl 32.0-36.0 L [facility] RDW 18.3 % 11.5-14.5 H [facility] PLATELET COUNT 670 x10E3/uL 130-400 H [facility] (Slide estimate appears increased) MPV 8.9 fl 8.6-12.6 [facility] SEGMENTED NEUTROPHILS 76.0 % 44.0-74.0 H [facility] BAND 0.0 % 0.0-4.0 [facility] LYMPHOCYTES 12.0 % 15.0-45.0 L [facility] MONOCYTES 12.0 % 2.0-13.0 [facility] EOSINOPHILS 0.0 % 0.0-6.0 [facility] BASOPHILS 0.0 % 0.0-2.0 [facility] NEUTROPHIL ABSOLUTE 14.6 x10E3/uL 1.4-7.0 H [facility] LYMPHOCYTES ABSOLUTE 2.3 x10E3/uL 1.0-3.4 [facility] MONOCYTE ABSOLUTE 2.3 x10E3/uL 0.2-1.0 H [facility] EOSINOPHIL ABSOLUTE 0.0 x10E3/uL 0.0-0.5 [facility] BASOPHIL ABSOLUTE 0.0 x10E3/uL 0.0-0.2 [facility] POLYCHROMASIA Slight [facility] spital HYPOCHROMIA 1+ A [facility] ANISOCYTOSIS 1+ A [facility] pital MACROCYTOSIS 1+ A [facility] pital POIKILOCYTOSIS 1+ A [facility] ospital OVALOCYTOSIS 1+ A [facility] pital TEARDROP CELLS [facility] R [facility] [address] * ID Date Data Source [id number] 02/20/2020 07:51:00 AM EST [facility] Name Value Range Interpretation Code Description Data Danielle rce(s) Supporting Document(s) DIFFERENTIAL SCAN PERFORMED [facility] R [facility], Dept of [place] [id number] * ID Date Data Source [id number] 02/20/2020 07:10:00 AM EST [facility] Name Value Range Interpretation Code Description Data Danielle rce(s) Supporting Document(s) ESTIMATED GFR (CALCULATED) [facility] EGFR 127 [facility] >59 mL/min/1.73m2 EGFR, -HONDURAN 147 [facility] >59 mL/min/1.14p1Jafl: Persistent reduction for 3 months or more in an eGFR <60 mL/min/1.73m2 defines CKD. Patients with eGFR values >=60 mL/min/1.73m2 may also have CKD if evidence of persistent proteinuria is present. Additional information may be found at [email or web address]. R [facility], Dept of Path [address] [place], [place] [id number] * ID Date Data Source [id number] 02/20/2020 07:10:00 AM [facility] Name Value Range Interpretation Code Description Data Danielle rce(s) Supporting Document(s) GLUCOSE 113 mg/dl 70-100 H [facility] BUN 11 mg/dl 5-21 [facility] CREATININE, SERUM 0.64 mg/dl 0.60-1.30 [facility] SODIUM 140 mmol/l 136-146 [facility] POTASSIUM 3.4 mmol/l 3.5-5.3 L [facility] CHLORIDE 103 mmol/l 96-109 [facility] CARBON DIOXIDE 25 mmol/l 20-32 [facility] ospital CALCIUM 8.6 mg/dl 8.4-10.4 [facility] BUN/CREATININE RATIO 17.2 6.0-20.0 [facility] ANION GAP 12.0 mmol/l 7.0-16.0 [facility] OSMOLALITY (CALCULATED) 280 mos/kg 280-300 [facility], Dept of Pat h [address] [place], [place] [id number] * ID Date Data Source [id number] 02/20/2020 07:02:00 AM [facility] Name Value Range Interpretation Code Description Data Danielle rce(s) Supporting Document(s) PTT (ON HEPARIN THERAPY) 52.7 seconds 69.0-117.0 L R [facility] Values within the normal reference range are reflective of Heparin effectwithin the therapeutic range of 0.2-0.4 Heparin U/ml. R [facility] [address] [place] [address] * ID Date Data Source [id number] 02/21/2020 01:04:00 PM EST [facility] NASAL; SWAB Name Value Range Interpretation Code Description Data Danielle rce(s) Supporting Document(s) MRSA SCREEN BY PCR NEGATIVE NEGATIVE [facility] h [address] [place] [address] * ID Date Data Source [id number] 02/19/2020 04:21:00 PM EST [facility] Name Value Range Interpretation Code Description Data Danielle rce(s) Supporting Document(s) ESTIMATED GFR (CALCULATED) [facility] EGFR 124 [facility] >59 mL/min/1.73m2 EGFR, -HONDURAN 144 [facility] >59 mL/min/1.75y9Eyql: Persistent reduction for 3 months or more in an eGFR <60 mL/min/1.73m2 defines CKD. Patients with eGFR values >=60 mL/min/1.73m2 may also have CKD if evidence of persistent proteinuria is present. Additional information may be found at [email or web address]. R [facility] [address] [place] [address] * ID Date Data Source [id number] 02/19/2020 04:21:00 PM EST [facility] Name Value Range Interpretation Code Description Data Danielle rce(s) Supporting Document(s) GLUCOSE 115 mg/dl 70-100 H [facility] BUN 12 mg/dl 5-21 [facility] CREATININE, SERUM 0.67 mg/dl 0.60-1.30 [facility] SODIUM 134 mmol/l 136-146 L [facility] POTASSIUM 4.3 mmol/l 3.5-5.3 [facility] CHLORIDE 103 mmol/l 96-109 [facility] CARBON DIOXIDE 18 mmol/l 20-32 L [facility] ospital CALCIUM 8.7 mg/dl 8.4-10.4 [facility] BUN/CREATININE RATIO 17.9 6.0-20.0 [facility] ANION GAP 13.0 mmol/l 7.0-16.0 [facility] ital OSMOLALITY (CALCULATED) 269 mos/kg 280-300 L [facility] R [facility], Dept of Pat [address] [place] [address] * ID Date Data Source [id number] 02/19/2020 03:00:00 PM EST [facility] NASAL; SWAB Name Value Range Interpretation Code Description Data Danielle rce(s) Supporting Document(s) PTT 46.7 seconds 23.7-35.5 H [facility] pital R [facility], Dept of Pat [address] [place] [address] * ID Date Data Source [id number] 02/19/2020 02:21:00 PM EST [facility] Name Value Range Interpretation Code Description Data Danielle rce(s) Supporting Document(s) SARS coronavirus 2 RNA [facility] This lab was ordered by [facility] and reported by [facility]. ID Date Data Source [id number] 02/19/2020 03:15:00 PM EST [facility] NASAL; SWAB Name Value Range Interpretation Code Description Data Danielle rce(s) Supporting Document(s) SARS-COV-2 ZULY NEGATIVE NEGATIVE [facility] ospital Testing perfo rmed by nucleic acid amplification.This test has not been FDA cleared or approved. This test has beenauthorized by FDA under an Emergency Use Authorization (EUA). This test isonly authorized for the duration of the declaration that circumstancesexist justifying the authorization of emergency use of in vitro diagnostictests for detection and/or diagnosis of COVID-19 under Section 564(b)(1) ofthe Act, 21 U.S.C. 360bbb-3(b)(1), unless the authorization is terminatedor revoked sooner. Negative results do not preclude SARS-COV-2,influenza A virus, influenza B virus and/or RSV infection and should not beused as a sole basis for treatment or other patient management decisions.Negative results must be combined with clinical observation and/orepidemoilogical information. INFLUENZA A ZULY NEGATIVE NEGATIVE [facility] Testing perfo rmed by nucleic acid amplification. Please refer to SARS-COV-2 result comment for FDA approval and EUA information. INFLUENZA B ZULY NEGATIVE NEGATIVE [facility] Testing perfo rmed by nucleic acid amplification. Please refer to SARS-COV-2 result comment for FDA approval and EUA information. RSV ZULY NEGATIVE NEGATIVE [facility] Testing perfo rmed by nucleic acid amplification. Please refer to SARS-COV-2 result comment for FDA approval and EUA information. R [facility], Dept of Path [address] [place] [address] * ID Date Data Source [id number] 02/19/2020 01:01:23 PM EST [facility] Ct thoracic spineClinical History: Chest pain. Bacterial endocarditis. Pneumonia. Elevated whitecount. Left upper chest pain since last night. Severe pain. Mild upper backpain. C-spine and T-spine surgery in the past. No abdominal complaints.Endocarditis. Previous surgery. Heroin use. Acute presentation. Inpatient.Initial encounter.Technique: Multidetector helical CT was performed through the thoracic spine.Multiple contiguous axial, sagittal, and coronal reconstructed images arereviewed. CT imaging was performed utilizing dose reduction techniques includingautomated exposure control and iterative r econstruction technique.Comparison: No relevant previous exams are available for comparison.Contrast: 70 cc of Isovue-370 intravenous contrast was administered for theexam.Findings:Vertebral bodies and Intervertebral disc spaces: The thoracic vertebral bodyheights are relatively well-maintained. There is disc space narrowing withpartial anterior fusion identified at the T10-11 level anteriorly. Correlationwith previous surgical intervention at that level is recommended. There is milddisc space narrowing throughout with marginal hypertrophic osteophyte formationthroughout.Unfortunately, there is significant abnormality at the T7-8 level. There isfocal bony cortical loss/destructive change involving the superior endplate atthe T8 level. There is focal bony loss/destruction of the inferior endplate ofT7 with some fragmentation and lucency along the anterior inferior margin of theT7 vertebral body. There is some mild surrounding soft tissue density identifiedand the appearance is most consistent with acute discitis. Clinical correlationand further evaluation, including MRI, should be considered as appropriate.Alignment: There is no subluxation.Soft tissues: There is gross abnormality identified within the adjacent rightand left lung. Filling defect/truncation of left upper lobe and right lower lobepulmonary arterial branches is seen consistent with pulmonary embolism.Associated central hilar mass or adenopathy. Extrinsic invasion/involvement ofthe pulmonary arteries not excluded. Please see CT angiogram of the chestreport, the same day.Disc levels: There is disc space narrowing and marginal hypertrophic osteophyteformation identified throughout the remainder of the thoracic spine.IMPRESSION: NO ACUTE-APPEARING FRACTURE. NO SUBLUXATION. CHANGES CHARACTERISTICOF DISCITIS CENTERED AT THE T7-8 LEVEL. QUESTION PREVIOUS SURGICAL INTERVENTIONWITH PARTIAL ANTERIOR FUSION AT THE T10- 11 LEVEL.FURTHER EVALUATION WITH MRI WOULD BE HELPFUL TO FURTHER CHARACTERIZE.NEUROSURGICAL CONSULTATION IS RECOMMENDED.OTHER FINDINGS ABOVE.DISCUSSED WITH DR. SHOEMAKER AT 12:28 PM.A Red Document Only message has been documented for MARCELO MARTINS MD inthe [employer] system on 02/19/2020 12:31 PM, Message [phone].Electronically Signed By: CHARLES HENRY MDDate: 02/19/2020 13:00 Name Value Range Interpretation Code Description Data Danielle rce(s) Supporting Document(s) ID Date Data Source [id number] 02/19/2020 07:08:00 AM EST [facility] Name Value Range Interpretation Code Description Data [facility] rce(s) Supporting Document(s) WBC 20.7 x10E3/uL 4.3-10.9 H [facility] spital RBC 3.20 x10E6/uL 4.70-6.20 L [facility] HEMOGLOBIN 8.0 g/dl 13.0-17.0 L [facility] HEMATOCRIT 26.4 % 39.0-50.0 L [facility] MCV 82.5 fl 82.0-98.0 [facility] MCH 25.0 pg 27.5-33.5 L [facility] MCHC 30.3 g/dl 32.0-36.0 L [facility] RDW 19.0 % 11.5-14.5 H [facility] PLATELET COUNT 543 x10E3/uL 130-400 H [facility] (Slide estimate appears increased) MPV 9.4 fl 8.6-12.6 [facility] SEGMENTED NEUTROPHILS 89.0 % 44.0-74.0 H [facility] BAND 0.0 % 0.0-4.0 [facility] LYMPHOCYTES 7.0 % 15.0-45.0 L [facility] ital MONOCYTES 4.0 % 2.0-13.0 [facility] EOSINOPHILS 0.0 % 0.0-6.0 [facility] ital BASOPHILS 0.0 % 0.0-2.0 [facility] NEUTROPHIL ABSOLUTE 18.4 x10E3/uL 1.4-7.0 H [facility] LYMPHOCYTES ABSOLUTE 1.4 x10E3/uL 1.0-3.4 [facility] MONOCYTE ABSOLUTE 0.8 x10E3/uL 0.2-1.0 [facility] EOSINOPHIL ABSOLUTE 0.0 x10E3/uL 0.0-0.5 [facility] BASOPHIL ABSOLUTE 0.0 x10E3/uL 0.0-0.2 [facility] GIANT PLATELETS [facility] POLYCHROMASIA 1+ A [facility] spital HYPOCHROMIA 1+ A [facility] ANISOCYTOSIS .2+ [facility] pital MICROCYTOSIS 1+ A [facility] pital MACROCYTOSIS [facility] Ho spital R [facility] [address] * ID Date Data Source [id number] 02/19/2020 07:08:00 AM EST [facility] Name Value Range Interpretation Code Description Data Danielle rce(s) Supporting Document(s) MANUAL DIFFERENTIAL PERFORMED [facility] R [facility], Dept of [address] [address] * ID Date Data Source [id number] 02/19/2020 06:58:00 AM EST [facility] Name Value Range Interpretation Code Description Data Danielle rce(s) Supporting Document(s) DIFFERENTIAL SCAN PERFORMED [facility] R [facility], Dept of [facility] [address] [place] [address] * ID Date Data Source [id number] 02/19/2020 06:57:00 AM EST [facility] Name Value Range Interpretation Code Description Data Danielle rce(s) Supporting Document(s) ESTIMATED GFR (CALCULATED) [facility] EGFR 120 [facility] >59 mL/min/1.73m2 EGFR, -HONDURAN 139 [facility] >59 mL/min/1.68p4Zvrl: Persistent reduction for 3 months or more in an eGFR <60 mL/min/1.73m2 defines CKD. Patients with eGFR values >=60 mL/min/1.73m2 may also have CKD if evidence of persistent proteinuria is present. Additional information may be found at [email or web address]. R [facility], Dept of [address] [address] * ID Date Data Source [id number] 02/19/2020 06:57:00 AM [facility] Name Value Range Interpretation Code Description Data [facility] rce(s) Supporting Document(s) MAGNESIUM 1.8 mg/dl 1.7-2.7 [facility] [address] [address] * ID Date Data Source [id number] 02/19/2020 06:57:00 AM [facility] Name Value Range Interpretation Code Description Data Danielle rce(s) Supporting Document(s) GLUCOSE 83 mg/dl 70-100 [facility] BUN 11 mg/dl 5-21 [facility] CREATININE, SERUM 0.73 mg/dl 0.60-1.30 [facility] SODIUM 135 mmol/l 136-146 L [facility] POTASSIUM 4.1 mmol/l 3.5-5.3 [facility] CHLORIDE 103 mmol/l 96-109 [facility] CARBON DIOXIDE 15 mmol/l 20-32 LL [facility] ospital Confirmed on reassay CALCIUM 8.7 mg/dl 8.4-10.4 [facility] BUN/CREATININE RATIO 15.1 6.0-20.0 [facility] ANION GAP 17.0 mmol/l 7.0-16.0 H [facility] OSMOLALITY (CALCULATED) 269 mos/kg 280-300 L [facility], Dept of [place] [id number] * ID Date Data Source [id number] 02/19/2020 02:11:00 AM EST [facility] Name Value Range Interpretation Code Description Data Danielle rce(s) Supporting Document(s) TROPONIN I <0.300 ng/ml [facility] spital Negative: < 0.300 Positive: >=0.300Results obtained using Jacky methodology. Please note thatserial determinations should be monitored using the same methodology. R [facility] [address] [address] * ID Date Data Source [id number] 02/19/2020 02:05:00 AM [facility] Name Value Range Interpretation Code Description Data Danielle rce(s) Supporting Document(s) ESTIMATED GFR (CALCULATED) [facility] EGFR 124 [facility] >59 mL/min/1.73m2 EGFR, -HONDURAN 143 [facility] >59 mL/min/1.17q0Mphm: Persistent reduction for 3 months or more in an eGFR <60 mL/min/1.73m2 defines CKD. Patients with eGFR values >=60 mL/min/1.73m2 may also have CKD if evidence of persistent proteinuria is present. Additional information may be found at [email or web address]. R [facility], Dept of Path [address] [place] [address] * ID Date Data Source [id number] 02/19/2020 02:05:00 AM [facility] Name Value Range Interpretation Code Description Data Danielle rce(s) Supporting Document(s) GLUCOSE 104 mg/dl 70-100 H [facility] BUN 10 mg/dl 5-21 [facility] CREATININE, SERUM 0.68 mg/dl 0.60-1.30 [facility] SODIUM 134 mmol/l 136-146 L [facility] POTASSIUM 4.0 mmol/l 3.5-5.3 [facility] CHLORIDE 101 mmol/l 96-109 [facility] CARBON DIOXIDE 20 mmol/l 20-32 [facility] ospital ALBUMIN 3.1 g/dl 3.5-5.0 L [facility] CALCIUM 8.9 mg/dl 8.4-10.4 [facility] PHOSPHOROUS 3.9 mg/dl 2.8-4.7 [facility], Dept of Pat h [address] [place] [address] * ID Date Data Source [id number] 02/19/2020 02:03:00 AM [facility] Name Value Range Interpretation Code Description Data Danielle rce(s) Supporting Document(s) LACTIC ACID 0.8 mmol/L 0.5-2.2 [facility] pital R [facility], Dept of [facility] [address] [place] [address] * ID Date Data Source [id number] 02/19/2020 01:25:[address] [facility] [address] of the Abdomen and PelvisHISTORY: Rul e out splenic infarct. Inpatient. Initial encounter. History ofendocarditis and pneumonia. Elevated white blood cell count. Left upper chestpain since last night, reported severe. Mild upper back pain. History of C-spineand T-spine surgery. No reported trauma. History of heroin use.TECHNIQUE: Axial CT images were obtained through the abdomen and pelvis.Multiplanar reformatted images including coronal and sagittal reconstructedimaging presented. CT imaging was performed utilizing dose reduction techniquesincluding automated exposure control and iterative freddie nstruction technique.ORAL CONTRAST: None.IV CONTRAST: Intravenous contrast was administered.COMPARISON: No relevant prior imaging studies are available for comparison.FINDINGS:Lower chest: Please see the CT chest angiogram report of the same day.Liver: The liver is enlarged, measuring up to 23 cm in length. There are a fewtiny nonspecific foci of low attenuation seen within the liver, too small todefinitively characterize. There is no additional hepatic mass.Gallbladder and Biliary Tree: No calcified gallstones are seen. There is nobiliary ductal dilatation.Pancreas: The pancreas is unremarkable without mass lesion.Spleen: There are a few calcified splenic granulomas with no additional splenicmass or infarct. The spleen appears mildly prominent, measuring up to 12.5 cm.Adrenal glands: No adrenal mass is seen.Kidneys: No hydronephrosis. No suspect renal mass.Bladder: There is relatively mild urinary bladder wall thickening, mostpronounced anteriorly.Vessels and lymph nodes: There is no abdominal aortic aneurysm. There ispathologic lymphadenopathy, most pronounced in the upper abdomen including in aperiaortic location, with areas of lymphadenopathy measuring up to 2 cm indiameter on the axial images.Bowel and peritoneum: There is nonspecific fluid within multiple small bowelloops, some of which are minimally prominent. The appearance is nonspecific withthe possibility of mild ileus or enteritis not excluded. There is otherwise nobowel obstruction or additional suspect significant bowel inflammatory change. Asmall ovoid, high-attenuation focus seen within the pelvis is likely presentwithin a loop of small bowel presumably representing an ingested tablet. Thereis a small amount of nonspecific free fluid, most pronounced in the pelvis, withsome nonspecific mild hazy streaky density also seen within the mesenteric fat.There is no free air.Abdominal wall: There is no acute abnormality.Pelvis: No pelvic masses are present.Bones: There is degenerative change.IMPRESSION: HEPATOSPLENOMEGALY.A FEW TINY NONSPECIFIC FOCI OF LOW ATTENUATION WITHIN THE LIVER, TOO SMALL TODEFINITIVELY CHARACTERIZE.SPLENIC GRANULOMAS WITH OTHERWISE NO SPLENIC INFARCT OR MASS.PATHOLOGIC LYMPHADENOPATHY, NONSPECIFIC, POSSIBLY REACTIVE WITH OTHER ETIOLOGIESNOT EXCLUDED.SMALL AMOUNT OF FREE FLUID.NONSPECIFIC FLUID WITHIN MULTIPLE SMALL BOWEL LOOPS, SOME OF WHICH ARE MINIMALLYPROMINENT, WITH ILEUS OR ENTERITIS NOT EXCLUDED.MILD URINARY BLADDER WALL THICKENING.ADDITIONAL FINDINGS ABOVE.Electronically Signed By: SHAHRAM RONDON, DENISEDate: 02/19/2020 13:24 Name Value Range Interpretation Code Description Data Danielle rce(s) Supporting Document(s) ID Date Data Source [id number] 02/19/2020 01:53:19 PM EST [facility] CT CERVICAL SPINE:CLINICAL HISTORY: Pain . Rule out cervical spine abscess. Inpatient. Initialencounter. History of endocarditis and pneumonia. Elevated white blood cellcount. Left upper chest pain since last night, reported severe. Mild upper backpain. History of cervical spine and thoracic spine surgery. No reported trauma.History of heroin use.TECHNIQUE: Axial CT images through the cervical spine were obtained with IVcontrast administration. Multiplanar including sagittal and coronal reformattedimages are presented.CT imaging was performed utilizing dose reductiontechniques including automated exposure control and iterative reconstructiontechnique.COMPARISON: There are no relevant studies for comparison.CONTRAST: Intravenous contrast was administered.FINDINGS:There is no prevertebral soft tissue swelling.There is straightening of the cervical spine, possibly positional, with musclespasm not excluded.There is disc space narrowing and osteophyte formation, most pronounced at theC5-C6 level of a mild to moderate degree at this level. There is moderatedegenerative change at the C1-C2 articulation. There is moderate to severe facetdegenerative change. There appears to be some fusion of the facet joints.There is postsurgical change present from the C2 to the C6 level with thepatient status post laminectomy.The vertebral body heights are well- maintained. No acute displaced fractures areidentified. Except for areas of apparent degenerative change, there are nosuspect significant lytic or sclerotic bone lesions.Sensitivity of this exam for evaluating the discs and the intracanal contents islimited. Bearing this in mind, there are no suspect large gross disc herniationsand there is no suspect gross spinal canal stenosis. There is multilevelneuroforaminal narrowing ranging up to a relatively severe degree.The thyroid gland appears relatively unremarkable. There are some apparentpathologically-enlarged lymph nodes at the base of the neck, possibly reactivewith other etiologies not excluded. For additional findings within thevisualized thorax, please see the chest CT report of the same day.There is no additional gross soft tissue mass or fluid collection seen withinthe neck.IMPRESSION: POSTSURGICAL CHANGE.DEGENERATIVE CHANGE.QUESTION MUSCLE SPASM.PATHOLOGIC LYMPHADENOPATHY, POSSIBLY REACTIVE WITH OTHER ETIOLOGIES NOTEXCLUDED.OTHER FINDINGS DISCUSSED WITH NO ADDITIONAL ACUTE ABNORMALITY RUBY PECT.IF MORE SENSITIVE NEUROIMAGING ASSESSMENT IS CLINICALLY WARRANTED, FURTHEREVALUATION WITH MRI COULD BE CONSIDERED.FOR ADDITIONAL FINDINGS WITHIN THE VISUALIZED CHEST, PLEASE SEE THE CHEST CTREPORT OF THE SAME DATE.Electronically Signed By: SHAHRAM RONDON, DENISEDate: 02/19/2020 13:52 Name Value Range Interpretation Code Description Data Danielle e(s) Supporting Document(s) ID Date Data Source [id number] 02/19/2020 01:06:[address] [facility] [address] chest/pulmonary angiogramHistory: Brenda st pain. Endocarditis. History of endocarditis. Pneumonia. Elevatedwhite count. Left upper chest pain since last night. Severe pain. Mild upperback pain. Previous C-spine and T-spine surgery. Acute presentation. History ofheroin use. Subsequent encounter.Technique: Axial CT images were obtained through the chest prior to intravenouscontrast administration. Following intravenous contrast, multidetector helicalCT was performed through the chest. Multiple contiguous axial, selected sagittaland coronal reconstructed images are reviewed. Coronal MIP and coronal obliqueMIP reformatted images are presented. Axial MIP reformatted images of the lungsare presented as well. CT imaging was performed utilizing dose reductiontechniques including automated exposure control and iterative reconstructiontechnique.Contrast: 70 cc of Isovue-370 intravenous contrast was administered for theexam.Comparison: Previous CT examination dated 02/14/2020.Quality assessment: Acceptable.Findings:Lungs and airways: There is increasingly dense consolidation identified in theright upper lobe anteriorly abutting the fissure at the level of the previouslynoted parenchymal infiltrate/opacity. This is somewhat more masslike centrallythan on the patient's previous exam. The component abutting and inseparable fromthe pleural surface both inferiorly and laterally is denser on the current exam.On the left, there is significantly worsening consolidative change in the leftupper lobe with dense macrolobulated consolidation in the left upper lobe. Thesuperolateral component is denser. The anteromedial component is stable. Thereis significant worsening patchy pulmonary parenchymal infiltrate and opacitythroughout the remainder of the left upper lobe. There is marked centralconsolidative change along the upper lobe bronchi on the left. The appearancereflects a marked interval worsening in the extent of abnormality in the leftupper lobe. There is linear atelectasis in the right middle lobe. There isnodular atelectasis/infiltrate in the right lower lobe posteriorly, moreprominent. Bands of atelectasis are seen in the left lower lobe with someimproved aeration in the left lower lung since the patient's previousexamination. There is a persistently visualized mass-like abnormality in theright hilum, either lymphadenopathy and/or a central lower lung mass, measuringup to 3.5 cm maximally, unchanged. There is no definite endobronchial lesionidentified, although the consolidative change in the left upper lobe does appearto be narrowing the upper lobe bronchi. There are some scattered nodular f ociidentified within the right lower lung, and given the somewhat nodularconfiguration of the opacities, particularly in the lower lobes, septic embolinot excluded.Mediastinum and Zina: There is significant prevascular soft tissue abnormalityidentified as on the previous exam likely related to some residual thymictissue. There are enlarged paratracheal and AP window lymph nodes identified.There are enlarged subcarinal lymph nodes seen. Enlarged left hilar lymphnode/central soft tissue abnormality is seen at the level of the left hilum aswell. Underlying mass lesion not excluded. Central mass/hilar alejandra mass in theright lower lung as above.Pleura: There are bilateral pleural effusions identified, relatively small.Heart and Pericardium: There is a new paracardial effusion. The heart isenlarged. No coronary artery calcifications are seen.Vessels: There is no thoracic aortic aneurysm identified. There is thrombusidentified within right lower lobe pulmonary arterial branches, peripheral tothe central lesion. There is an abrupt cutoff with change in caliber in the leftupper lobe pulmonary artery. There is extrinsic mass effect upon the rightpulmonary artery at the right hilum but there is intraluminal abnormalityidentified consistent with pulmonary embolism.Upper abdomen: There is no adrenal mass or adenopathy.Bones: Multilevel degenerative change is seen in the spine. At the T7-8 level,there is disc space narrowing. There is lucency and loss of the inferiorendplate at the T7 level and of the superior endplate at the T8 level. There issome mild paraspinal soft tissue abnormality at that level and there is bonydestructive change involving the anterior inferior endplate of the T7 vertebralbody with some fragmentation noted. The appearance is most characteristic of adiscitis. Please see separately dictated CT of the thoracic spine report, the.Axilla: There are enlarged right axillary lymph nodes identified. There aremildly prominent left axillary lymph nodes.Thyroid: There is no thyroid lesion identified.IMPRESSION: EXTENSIVE AREAS OF PROGRESSIVE/WORSENING BILATERAL CONSOLIDATION ASDESCRIBED ABOVE, FOR THE MOST PART, WORSE. THERE IS NOW EXTENSIVEABNORMALITY/INFILTRATE WITH EXTENSIVE AREAS OF CONSOLIDATION SEEN THROUGHOUT THELEFT UPPER LOBE WITH MORE EXTENSIVE INTERSTITIAL AND PARENCHYMAL GROUNDGLASSOPACITY/INFILTRATE INVOLVING A LARGE PORTION OF THE LEFT UPPER LOBE. POSITIVEMASS EFFECT WITH NARROWING OF THE UPPER LOBE BRONCHI ON THE LEFT. THE APPEARANCEIS MOST CONSISTENT WITH MARKEDLY WORSENING EXTENSIVE BILATERAL PNEUMONIA, MOSTEXTENSIVE INCLUDING SIGNIFICANT GROUNDGLASS OPACITY AND DENSE CONSOLIDATION INTHE LEFT LUNG. UNDERLYING LESION/INFARCT NOT EXCLUDED.LYMPHADENOPATHY IDENTIFIED WITHIN THE MEDIASTINUM WITH A RIGHT AND LEFT HILARMASS/CONGLOMERATE LYMPHADENOPATHY. AXILLARY LYMPHADENOPATHY.CARDIOMEGALY WITH PERICARDIAL EFFUSION. ECHOCARDIOGRAM IS RECOMMENDED TO FURTHEREVALUATE.ABNORMALITY INVOLVING THE PULMONARY ARTERIAL TREE BILATERALLY CONSISTENT WITHBILATERAL PULMONARY EMBOLISM. THERE IS ADENOPATHY/MASS ABUTTING AND INSEPARABLEFROM THE AREAS OF ABNORMALITY IN THE PULMONARY ARTERIAL TREE AND EXTRINSICINVOLVEMENT/INVASION OF THE PULMONARY ARTERIAL TREE NOT EXCLUDED.DISCITIS AT THE T7-[address] THORACIC SPINE REPORT THE SAME DAY.OTHER FINDINGS ABOVE.GIVEN THE ABOVE-DESCRIBED FINDINGS, REPORT WAS CONVEYED BY TELEPHONE TO AT 12:20 PM.A Red Docu ment Only message has been documented for RODRIGUEZ SHOEMAKER MD in [employer] system on 02/19/2020 12:33 PM, Message [phone].Electronically Signed By: CHARLES HENRY MDDate: 02/19/2020 13:05 Name Value Range Interpretation Code Description Data Danielle rce(s) Supporting Document(s) ID Date Data Source [id number] 02/19/2020 06:52:28 AM [facility] Vent Rate: 136 bpmRR Interval: -1 msecPR Interval: 126 msecQRS Duration: 86 msecQT Interval: 290 msecQTC Interval: 436 msecP-R-T [place]: 63 - 83 - 32 degreessinus tachycardiavertical axislow QRS voltage in extremity leadsBorderline ECGPossible precordial lead placementStudy Date: [id number] Signed By: CRUZ RONDON OLIVEDate: 02/19/2020 06:52 Name Value Range Interpretation Code Description Data Danielle rce(s) Supporting Document(s) ID Date Data Source [id number] 02/18/2020 12:54:00 PM [facility] Name Value Range Interpretation Code Description Data Danielle rce(s) Supporting Document(s) VANCOMYCIN TROUGH 17.1 ug/ml 10.0-20.0 [facility], Dept of Pat h [address] [id number] * ID Date Data Source [id number] 02/18/2020 08:54:00 AM [facility] NASAL; SWAB Name Value Range Interpretation Code Description Data Danielle rce(s) Supporting Document(s) MANUAL DIFFERENTIAL PERFORMED [facility], Dept of [facility] h [address] [place] [address] * ID Date Data Source [id number] 02/18/2020 08:54:00 AM EST [facility] NASAL; SWAB Name Value Range Interpretation Code Description Data Danielle rce(s) Supporting Document(s) WBC 21.7 x10E3/uL 4.3-10.9 H [facility] spital RBC 3.24 x10E6/uL 4.70-6.20 L [facility] spital HEMOGLOBIN 7.9 g/dl 13.0-17.0 [facility] HEMATOCRIT 26.1 % 39.0-50.0 L [facility] en[facility]ina MCV 80.6 fl 82.0-98.0 L [facility] MCH 24.4 pg 27.5-33.5 L [facility] MCHC 30.3 g/dl 32.0-36.0 L [facility] RDW 18.8 % 11.5-14.5 H [facility] PLATELET COUNT 681 x10E3/uL 130-400 H [facility] (Slide estimate appears increased) MPV 8.8 fl 8.6-12.6 [facility] SEGMENTED NEUTROPHILS 79.0 % 44.0-74.0 H [facility] BAND 0.0 % 0.0-4.0 [facility] LYMPHOCYTES 14.0 % 15.0-45.0 L [facility] ATYPICAL LYMPHOCYTE 1.0 % A [facility] MONOCYTES 5.0 % 2.0-13.0 [facility] EOSINOPHILS 1.0 % 0.0-6.0 [facility] BASOPHILS 0.0 % 0.0-2.0 [facility] NEUTROPHIL ABSOLUTE 17.1 x10E3/uL 1.4-7.0 H [facility] LYMPHOCYTES ABSOLUTE 3.0 x10E3/uL 1.0-3.4 [facility] MONOCYTE ABSOLUTE 1.1 x10E3/uL 0.2-1.0 H [facility] EOSINOPHIL ABSOLUTE 0.2 x10E3/uL 0.0-0.5 [facility] BASOPHIL ABSOLUTE 0.0 x10E3/uL 0.0-0.2 [facility] POLYCHROMASIA 1+ A [facility] spital HYPOCHROMIA 1+ A [facility] ital ANISOCYTOSIS 1+ A [facility] pital MICROCYTOSIS 1+ A [facility]ital [facility] [address] [address] * ID Date Data Source [id number] 02/18/2020 08:31:00 AM EST [facility] NASAL; SWAB Name Value Range Interpretation Code Description Data Danielle rce(s) Supporting Document(s) ESTIMATED GFR (CALCULATED) [facility] EGFR 123 [facility] >59 mL/min/1.73m2 EGFR, -HONDURAN 143 [facility] >59 mL/min/1.33b5Jpqi: Persistent reduction for 3 months or more in an eGFR <60 mL/min/1.73m2 defines CKD. Patients with eGFR values >=60 mL/min/1.73m2 may also have CKD if evidence of persistent proteinuria is present. Additional information may be found at [email or web address]. R [facility], [facility] [place] [address] * ID Date Data Source [id number] 02/18/2020 08:31:00 AM EST [facility] NASAL; SWAB Name Value Range Interpretation Code Description Data Danielle rce(s) Supporting Document(s) MAGNESIUM 2.0 mg/dl 1.7-2.7 [facility] R [facility], [facility] [address] [address] * ID Date Data Source [id number] 02/18/2020 08:31:00 AM EST [facility] NASAL; SWAB Name Value Range Interpretation Code Description Data Danielle rce(s) Supporting Document(s) GLUCOSE 117 mg/dl 70-100 H [facility] BUN 11 mg/dl 5-21 [facility] CREATININE, SERUM 0.69 mg/dl 0.60-1.30 [facility] SODIUM 142 mmol/l 136-146 [facility] POTASSIUM 3.7 mmol/l 3.5-5.3 [facility] CHLORIDE 108 mmol/l 96-109 [facility]ina CARBON DIOXIDE 21 mmol/l 20-32 [facility] ospital ALBUMIN 3.0 g/dl 3.5-5.0 L [facility] PROTEIN, TOTAL 6.9 g/dl 6.4-8.2 [facility] ospital CALCIUM 8.8 mg/dl 8.4-10.4 [facility] ALKALINE PHOSPHATASE 127 U/l 10-118 H [facility] SGOT (AST) 14 U/l 3-40 [facility] SGPT (ALT) 31 U/l 7-50 [facility] BILIRUBIN, TOTAL 0.30 mg/dl 0.30-1.20 [facility] BUN/CREATININE RATIO 15.9 6.0-20.0 [facility] GLOBULIN 3.9 g/dl 2.3-3.5 H [facility] ANION GAP 13.0 mmol/l 7.0-16.0 [facility] OSMOLALITY (CALCULATED) 284 mos/kg 280-300 [facility] A/G RATIO 0.8 1.0-2.0 L [facility] R [facility], [place] [address] * ID Date Data Source [id number] 02/18/2020 03:55:00 AM EST [facility] Name Value Range Interpretation Code Description Data [facility] rce(s) Supporting Document(s) SARS coronavirus 2 RNA [facility] This lab [facility] and reported by [facility]. ID Date Data Source [id number] 02/18/2020 04:37:00 AM EST [facility] NASAL; SWAB Name Value Range Interpretation Code Description Data Danielle rce(s) Supporting Document(s) SARS-COV-2 ZULY NEGATIVE NEGATIVE [facility] ospital Testing perfo rmed by nucleic acid amplification.This test has not been FDA cleared or approved. This test has beenauthorized by FDA under an Emergency Use Authorization (EUA). This test isonly authorized for the duration of the declaration that circumstancesexist justifying the authorization of emergency use of in vitro diagnostictests for detection and/or diagnosis of COVID-19 under Section 564(b)(1) ofthe Act, 21 U.S.C. 360bbb-3(b)(1), unless the authorization is terminatedor revoked sooner. Negative results do not preclude SARS-COV-2,influenza A virus, influenza B virus and/or RSV infection and should not beused as a sole basis for treatment or other patient management decisions.Negative results must be combined with clinical observation and/orepidemoilogical information. INFLUENZA A ZULY NEGATIVE NEGATIVE [facility] Testing perfo rmed by nucleic acid amplification. Please refer to SARS-COV-2 result comment for FDA approval and EUA information. INFLUENZA B ZULY NEGATIVE NEGATIVE [facility] Testing perfo rmed by nucleic acid amplification. Please refer to SARS-COV-2 result comment for FDA approval and EUA information. RSV ZULY NEGATIVE NEGATIVE [facility] Testing perfo rmed by nucleic acid amplification. Please refer to SARS-COV-2 result comment for FDA approval and EUA information. R [facility], [place] [address] * ID Date Data Source [id number] 02/17/2020 08:07:00 AM EST [facility] Name Value Range Interpretation Code Description Data Danielle rce(s) Supporting Document(s) WBC 18.5 x10E3/uL 4.3-10.9 H [facility] spital RBC 3.63 x10E6/uL 4.70-6.20 L [facility] HEMOGLOBIN 9.0 g/dl 13.0-17.0 L [facility] HEMATOCRIT 29.4 % 39.0-50.0 L [facility] MCV 81.0 fl 82.0-98.0 L [facility] MCH 24.8 pg 27.5-33.5 L [facility] MCHC 30.6 g/dl 32.0-36.0 L [facility] RDW 19.1 % 11.5-14.5 H [facility] PLATELET COUNT 614 x10E3/uL 130-400 H [facility] (Slide estimate appears increased) MPV 9.0 fl 8.6-12.6 [facility] SEGMENTED NEUTROPHILS 77.0 % 44.0-74.0 H [facility] BAND 0.0 % 0.0-4.0 [facility] LYMPHOCYTES 12.0 % 15.0-45.0 L [facility] MONOCYTES 10.0 % 2.0-13.0 [facility] EOSINOPHILS 1.0 % 0.0-6.0 [facility] ital BASOPHILS 0.0 % 0.0-2.0 [facility] NEUTROPHIL ABSOLUTE 14.2 x10E3/uL 1.4-7.0 H [facility] LYMPHOCYTES ABSOLUTE 2.2 x10E3/uL 1.0-3.4 [facility] MONOCYTE ABSOLUTE 1.9 x10E3/uL 0.2-1.0 H [facility] EOSINOPHIL ABSOLUTE 0.2 x10E3/uL 0.0-0.5 [facility] BASOPHIL ABSOLUTE 0.0 x10E3/uL 0.0-0.2 [facility] HYPERSEGMENTED NEUTS [facility] LARGE PLATELETS 1+ A [facility] POLYCHROMASIA 1+ A [facility] spital HYPOCHROMIA 1+ A [facility] ANISOCYTOSIS 1+ A [facility] pital MICROCYTOSIS 1+ A [facility] pital R [facility], Dept of [address] [address] * ID Date Data Source [id number] 02/17/2020 08:01:00 AM [facility] Name Value Range Interpretation Code Description Data Danielle rce(s) Supporting Document(s) C-REACTIVE PROTEIN 179.7 mg/L 0.0-5.0 H [facility] R [facility], Dept of [address] [place] [address] * ID Date Data Source [id number] 02/17/2020 07:59:00 AM [facility] Name Value Range Interpretation Code Description Data Danielle rce(s) Supporting Document(s) ESTIMATED GFR (CALCULATED) [facility] EGFR [address] [facility] >59 mL/min/1.73m2 EGFR, -HONDURAN 133 [facility] >59 mL/min/1.15r1Hheu: Persistent reduction for 3 months or more in an eGFR <60 mL/min/1.73m2 defines CKD. Patients with eGFR values >=60 mL/min/1.73m2 may also have CKD if evidence of persistent proteinuria is present. Additional information may be found at [email or web address]. R [facility], Dept of Path [address] [place] [id number] * ID Date Data Source [id number] 02/17/2020 07:59:00 AM EST [facility] Name Value Range Interpretation Code Description Data Danielle rce(s) Supporting Document(s) PROTEIN, TOTAL 7.1 g/dl 6.4-8.2 [facility] ospital ALKALINE PHOSPHATASE 146 U/l 10-118 H [facility] SGOT (AST) 16 U/l 3-40 [facility] SGPT (ALT) 40 U/l 7-50 [facility] BILIRUBIN, TOTAL 0.26 mg/dl 0.30-1.20 L [facility] BILIRUBIN, DIRECT 0.07 mg/dl 0.00-0.40 [facility] BILIRUBIN, INDIRECT 0.19 mg/dl 0.10-1.[address] [facility], Dept of [address] [id number] * ID Date Data Source [id number] 02/17/2020 07:59:00 AM [facility] Name Value Range Interpretation Code Description Data Danielle rce(s) Supporting Document(s) GLUCOSE 95 mg/dl 70-100 [facility] BUN 15 mg/dl 5-21 [facility] CREATININE, SERUM 0.82 mg/dl 0.60-1.30 [facility] SODIUM 140 mmol/l 136-146 [facility] POTASSIUM 4.2 mmol/l 3.5-5.3 [facility] CHLORIDE 106 mmol/l 96-109 [facility] CARBON DIOXIDE 20 mmol/l 20-32 [facility] ospital ALBUMIN 3.2 g/dl 3.5-5.0 L [facility] CALCIUM 8.8 mg/dl 8.4-10.4 [facility] PHOSPHOROUS 4.6 mg/dl 2.8-4.7 [facility], Dept of [place] [id number] * ID Date Data Source [id number] 02/17/2020 07:37:00 AM EST [facility] Name Value Range Interpretation Code Description Data Danielle rce(s) Supporting Document(s) DIFFERENTIAL SCAN PERFORMED [facility] R [facility] [address] [address] * ID Date Data Source [id number] 02/22/2020 03:45:00 AM [facility] [address] [place] [address] r [facility] OF [address] [address] Site: RPERP Collected: 02/17/20 02:59 Marvin Perez E N T S PERIPHERAL; BLOODBLOOD CULTURE #2 FINAL 02/22/20 03:45 R104/24/19 No growth after 5 days. Name Value Range Interpretation Code Description Data [facility] Supporting Document(s) ID Date Data Source [id number] 02/22/2020 03:45:00 AM [facility] [address] [place] [address] r [facility], [facility] OF [address] [address] Site: RPERP Collected: 02/17/20 02:59 Marvin Perez E N T S PERIPHERAL; BLOODBLOOD CULTURE #1 FINAL 02/22/20 03:45 R104/24/19 No growth after 5 days. Name Value Range Interpretation Code Description Data Danielle rce(s) Supporting Document(s) ID Date Data Source [id number] 02/16/2020 09:29:00 PM [facility] Name Value Range Interpretation Code Description Data Danielle e(s) Supporting Document(s) VANCOMYCIN TROUGH 18.6 ug/ml 10.0-20.0 [facility] R [facility], Dept of [address] [address] * ID Date Data Source [id number] 02/16/2020 07:16:00 AM [facility] Name Value Range Interpretation Code Description Data Danielle rce(s) Supporting Document(s) ESTIMATED GFR (CALCULATED) [facility] EGFR 128 [facility] >59 mL/min/1.73m2 EGFR, -HONDURAN 148 [facility] >59 mL/min/1.88r2Jjew: Persistent reduction for 3 months or more in an eGFR <60 mL/min/1.73m2 defines CKD. Patients with eGFR values >=60 mL/min/1.73m2 may also have CKD if evidence of persistent proteinuria is present. Additional information may be found at [email or web address]. R [facility], Dept of [place] [id number] * ID Date Data Source [id number] 02/16/2020 07:16:00 AM [facility] Name Value Range Interpretation Code Description Data Danielle rce(s) Supporting Document(s) PROTEIN, TOTAL 7.1 g/dl 6.4-8.2 [facility] ospital ALKALINE PHOSPHATASE 159 U/l 10-118 H [facility] SGOT (AST) 23 U/l 3-40 [facility] SGPT (ALT) 48 U/l 7-50 [facility] BILIRUBIN, TOTAL 0.18 mg/dl 0.30-1.20 L [facility] BILIRUBIN, DIRECT 0.03 mg/dl 0.00-0.40 [facility] BILIRUBIN, INDIRECT 0.15 mg/dl 0.10-1.[address] [facility], [facility] [address] [place] [id number] * ID Date Data Source [id number] 02/16/2020 07:16:00 AM [facility] Name Value Range Interpretation Code Description Data Danielle rce(s) Supporting Document(s) GLUCOSE 104 mg/dl 70-100 H [facility] BUN 15 mg/dl 5-21 [facility] CREATININE, SERUM 0.63 mg/dl 0.60-1.30 [facility] SODIUM 135 mmol/l 136-146 L [facility] [place] POTASSIUM 4.2 mmol/l 3.5-5.3 [facility] [place] CHLORIDE 104 mmol/l 96-109 [facility] CARBON DIOXIDE 18 mmol/l 20-32 L [facility] ospital ALBUMIN 3.0 g/dl 3.5-5.0 L [facility] CALCIUM 8.9 mg/dl 8.4-10.4 [facility] PHOSPHOROUS 3.4 mg/dl 2.8-4.7 [facility], Dept of [address] [address] * ID Date Data Source [id number] 02/16/2020 07:13:00 AM [facility] Name Value Range Interpretation Code Description Data Danielle rce(s) Supporting Document(s) ESTIMATED GFR (CALCULATED) [facility] EGFR 124 [facility] >59 mL/min/1.73m2 EGFR, -HONDURAN 144 [facility] >59 mL/min/1.32k4Qdxv: Persistent reduction for 3 months or more in an eGFR <60 mL/min/1.73m2 defines CKD. Patients with eGFR values >=60 mL/min/1.73m2 may also have CKD if evidence of persistent proteinuria is present. Additional information may be found at [email or web address]. R [facility], Dept of [address] [address] * ID Date Data Source [id number] 02/16/2020 07:13:00 AM [facility] Name Value Range Interpretation Code Description Data Danielle rce(s) Supporting Document(s) C-REACTIVE PROTEIN 166.7 mg/L 0.0-5.0 H [facility] R [facility], Dept of [facility] [address] [place] [address] * ID Date Data Source [id number] 02/16/2020 07:13:00 AM [facility] Name Value Range Interpretation Code Description Data Danielle rce(s) Supporting Document(s) MAGNESIUM 1.9 mg/dl 1.7-2.7 [facility] R [facility] [address] * ID Date Data Source [id number] 02/16/2020 07:13:00 AM EST [facility] Name Value Range Interpretation Code Description Data Danielle rce(s) Supporting Document(s) GLUCOSE 106 mg/dl 70-100 H [facility] BUN 16 mg/dl 5-21 [facility] CREATININE, SERUM 0.67 mg/dl 0.60-1.30 [facility] SODIUM 136 mmol/l 136-146 [facility] [place] POTASSIUM 4.7 mmol/l 3.5-5.3 [facility] [place] CHLORIDE 104 mmol/l 96-109 [facility] CARBON DIOXIDE 18 mmol/l 20-32 L [facility] ospital ALBUMIN 3.4 g/dl 3.5-5.0 L [facility] PROTEIN, TOTAL 6.7 g/dl 6.4-8.2 [facility] ospital CALCIUM 8.9 mg/dl 8.4-10.4 [facility] ALKALINE PHOSPHATASE 162 U/l 10-118 H [facility] SGOT (AST) 27 U/l 3-40 [facility] SGPT (ALT) 51 U/l 7-50 H [facility] BILIRUBIN, TOTAL 0.19 mg/dl 0.30-1.20 L [facility] BUN/CREATININE RATIO 23.9 6.0-20.0 H [facility] GLOBULIN 3.3 g/dl 2.3-3.5 [facility] ANION GAP 14.0 mmol/l 7.0-16.0 [facility] OSMOLALITY (CALCULATED) 274 mos/kg 280-300 L [facility] A/G RATIO 1.0 1.0-2.0 [facility] R [facility], Dept of [place] [id number] * ID Date Data Source [id number] 02/16/2020 06:53:00 AM EST [facility] Name Value Range Interpretation Code Description Data Danielle rce(s) Supporting Document(s) MANUAL DIFFERENTIAL PERFORMED [facility] R [facility], Dept of [facility] h [address] [place] [address] * ID Date Data Source [id number] 02/16/2020 06:53:00 AM EST [facility] Name Value Range Interpretation Code Description Data Danielle rce(s) Supporting Document(s) WBC 21.1 x10E3/uL 4.3-10.9 H [facility] spital RBC 3.59 x10E6/uL 4.70-6.20 L [facility] spital HEMOGLOBIN 8.9 g/dl 13.0-17.0 L [facility] [place] HEMATOCRIT 29.0 % 39.0-50.0 L [facility] [place] MCV 80.8 fl 82.0-98.0 L [facility] MCH 24.8 pg 27.5-33.5 L [facility] MCHC 30.7 g/dl 32.0-36.0 L [facility] RDW 19.1 % 11.5-14.5 H [facility] PLATELET COUNT 500 x10E3/uL 130-400 H [facility] (Slide estimate appears increased) MPV 9.3 fl 8.6-12.6 [facility] SEGMENTED NEUTROPHILS 83.0 % 44.0-74.0 H [facility] BAND 0.0 % 0.0-4.0 [facility] LYMPHOCYTES 15.0 % 15.0-45.0 [facility] MONOCYTES 2.0 % 2.0-13.0 [facility] al EOSINOPHILS 0.0 % 0.0-6.0 [facility] BASOPHILS 0.0 % 0.0-2.0 [facility] NEUTROPHIL ABSOLUTE 17.5 x10E3/uL 1.4-7.0 H [facility] LYMPHOCYTES ABSOLUTE 3.2 x10E3/uL 1.0-3.4 [facility] MONOCYTE ABSOLUTE 0.4 x10E3/uL 0.2-1.0 [facility] EOSINOPHIL ABSOLUTE 0.0 x10E3/uL 0.0-0.5 [facility] BASOPHIL ABSOLUTE 0.0 x10E3/uL 0.0-0.2 [facility] LARGE PLATELETS 1+ A [facility] ANISOCYTOSIS 2+ [facility] pitnd MICROCYTOSIS 1+ A [facility] MACROCYTOSIS 1+ A [facility] pital R [facility], Dept of [address] [address] * ID Date Data Source [id number] 02/16/2020 06:49:00 AM EST [facility] Name Value Range Interpretation Code Description Data Danielle rce(s) Supporting Document(s) DIFFERENTIAL SCAN PERFORMED [facility], Dept of [facility] h [address] [place] [address] * ID Date Data Source [id number] 02/15/2020 02:47:00 PM [facility] Name Value Range Interpretation Code Description Data Danielle rce(s) Supporting Document(s) VANCOMYCIN TROUGH 12.8 ug/ml 10.0-20.0 [facility], Dept of [facility] h [address] [place] [address] * ID Date Data Source [id number] 02/15/2020 07:55:00 AM EST [facility] Name Value Range Interpretation Code Description Data Danielle rce(s) Supporting Document(s) ESTIMATED GFR (CALCULATED) [facility] EGFR 124 [facility] >59 mL/min/1.73m2 EGFR, -HONDURAN 143 [facility] >59 mL/min/1.66c2Luyf: Persistent reduction for 3 months or more in an eGFR <60 mL/min/1.73m2 defines CKD. Patients with eGFR values >=60 mL/min/1.73m2 may also have CKD if evidence of persistent proteinuria is present. Additional information may be found at [email or web address]. R [facility], Dept of [address] [place] [address] * ID Date Data Source [id number] 02/15/2020 07:55:00 AM [facility] Name Value Range Interpretation Code Description Data Danielle rce(s) Supporting Document(s) PROTEIN, TOTAL 7.3 g/dl 6.4-8.2 [facility] ospital ALKALINE PHOSPHATASE 205 U/l 10-118 H [facility] SGOT (AST) 21 U/l 3-40 [facility] SGPT (ALT) 65 U/l 7-50 H [facility] BILIRUBIN, TOTAL 0.13 mg/dl 0.30-1.20 L [facility] BILIRUBIN, DIRECT 0.06 mg/dl 0.00-0.40 [facility] BILIRUBIN, INDIRECT 0.07 mg/dl 0.10-1.10 L [facility] R [facility], [facility] [place] [id number] * ID Date Data Source [id number] 02/15/2020 07:55:00 AM EST [facility] Name Value Range Interpretation Code Description Data Danielle rce(s) Supporting Document(s) GLUCOSE 141 mg/dl 70-100 H [facility] BUN 16 mg/dl 5-21 [facility] CREATININE, SERUM 0.68 mg/dl 0.60-1.30 [facility] SODIUM 138 mmol/l 136-146 [facility] POTASSIUM 4.4 mmol/l 3.5-5.3 [facility] CHLORIDE 103 mmol/l 96-109 [facility] CARBON DIOXIDE 23 mmol/l 20-32 [facility] ospital ALBUMIN 3.5 g/dl 3.5-5.0 [facility] CALCIUM 9.0 mg/dl 8.4-10.4 [facility] PHOSPHOROUS 3.7 mg/dl 2.8-4.7 [facility], Dept of [place] [id number] * ID Date Data Source [id number] 02/15/2020 07:50:00 AM EST [facility] Name Value Range Interpretation Code Description Data Danielle rce(s) Supporting Document(s) WBC 15.3 x10E3/uL 4.3-10.9 H [facility] spital RBC 3.76 x10E6/uL 4.70-6.20 [facility] 9.3 g/dl 13.0-17.0 L [facility] HEMATOCRIT 29.9 % 39.0-50.0 L [facility] MCV 79.5 fl 82.0-98.0 L [facility] MCH 24.7 pg 27.5-33.5 L [facility] MCHC 31.1 g/dl 32.0-36.0 L [facility] RDW 19.1 % 11.5-14.5 H [facility] PLATELET COUNT 542 x10E3/uL 130-400 H [facility] (Slide estimate appears increased) MPV 9.1 fl 8.6-12.6 [facility] SEGMENTED NEUTROPHILS 74.0 % 44.0-74.0 [facility] BAND 0.0 % 0.0-4.0 [facility] LYMPHOCYTES 13.0 % 15.0-45.0 L [facility] MONOCYTES 11.0 % 2.0-13.0 [facility] EOSINOPHILS 2.0 % 0.0-6.0 [facility] BASOPHILS 0.0 % 0.0-2.0 [facility] NEUTROPHIL ABSOLUTE 11.3 x10E3/uL 1.4-7.0 H [facility] LYMPHOCYTES ABSOLUTE 2.0 x10E3/uL 1.0-3.4 [facility] MONOCYTE ABSOLUTE 1.7 x10E3/uL 0.2-1.0 H [facility] EOSINOPHIL ABSOLUTE 0.3 x10E3/uL 0.0-0.5 [facility] BASOPHIL ABSOLUTE 0.0 x10E3/uL 0.0-0.2 [facility] ANISOCYTOSIS 1+ A [facility] pital MICROCYTOSIS 1+ A [facility] pital R [facility], [place] [address] * ID Date Data Source [id number] 02/15/2020 07:43:00 AM EST [facility] Name Value Range Interpretation Code Description Data Danielle rce(s) Supporting Document(s) DIFFERENTIAL SCAN PERFORMED [facility] R [facility] [address] * ID Date Data Source [id number] 02/15/2020 07:29:00 AM EST [facility] Name Value Range Interpretation Code Description Data Danielle rce(s) Supporting Document(s) C-REACTIVE PROTEIN 181.9 mg/L 0.0-5.0 H [facility] R [facility], Dept of [facility] h [address] [place] [address] * ID Date Data Source [id number] 02/15/2020 07:32:32 AM EST [facility] EXAM:CT CHEST W IV CONTRASTCLINICAL HIST ORY:Fever. Subsequent encounter. Dyspnea. Left-sided PICC line not workingcorrectly. Fatigue. Chest pain on deep inspiration. Pneumonia. History ofheroine abuse.COMPARISON STUDY:X-ray chest 02/13/2020TECHNIQUE:Multidetector images were obtained with with 70 mL Isovue- 300 IV contrastfollowed by multiplanar and volumetric reconstructions. CT imaging was performedutilizing dose reduction techniques including automated exposure control anditerative reconstruction technique.FINDINGS: Study initially interpreted by [employer] econometrics professor.MEDIASTINUM: There are bilateral hilar and paratracheal lymph nodes. Subcarinallymphadenopathy is also present..UPPER ABDOMEN: UnremarkablePULMONARY ARTERIES: No acute appearing filling defect seen in the main orsegmental pulmonary arteries.LUNGS: Focal parenchymal opacity in the left upper lobe with air bronchogramformation consistent with appearance of pneumonia. Process extends over the lefthilum.Smaller similar patch inferiorly in the left upper lobe.Right upper lobe consolidation with air bronchogram formation seen as well.There are peripheral patches of parenchymal opacity in the bilateral lower lobesalso.There is a masslike density in the right infrahilar region measuring about 3.6 x2.8 cm..HEART: Not enlarged. No coronary artery calcifications. No pericardial effusion.Small bilateral pleural effusions.BONY STRUCTURE:No expansile destructive lesion.IMPRESSION:Bilateral pulmonary parenchymal opacities with air bronchogram formation morelikely to represent pneumonia.Small pleural effusions bilaterally.Bilateral paratracheal, subcarinal and hilar lymph nodes. Larger soft tissuemass in the infrahilar region measuring 3.6 x 2.8 cm. This may be reactivelymphadenopathy. Follow-up is recommended to ensure clearance after adequatetherapy.Electronically Signed By: FLOR RONDON, NAJMUSDate: 02/15/2020 07:31 Name Value Range Interpretation Code Description Data Danielle rce(s) Supporting Document(s) ID Date Data Source [id number] 02/16/2020 09:03:00 AM EST [facility] Transthoracic Echocardiographic ReportHt (Cm): 157 Wt(Kg): 59.9 BSA: 1.62Accession #: [id number] Rate: 100Quality: The study images were of technically good quality.PROCEDURES:Echocardiographic Report: Transthoracic complete echo, 2D, spectral and tissueDoppler,color flow Doppler, M- mode.INDICATIONS:Pneumonia.CONCLUSIONS:1. Normal left ventricular size. Low normal left ventricular systolic function.LVEjection Fraction is 50 %. Normal geometry.2. Normal right ventricular size and systolic function.3. The left atrium is normal in size.4. Mildly dilated right atrium.5. There is trivial mitral regurgitation.6. There is trivial aortic regurgitation.7. There is moderate tricuspid regurgitation. The estimated right ventricularsystolicpressure is 30-40 mmHg and mild pulmonary hypertension.8. There is mild pulmonic regurgitation.9. Trivial pericardial effusion. No echocardiographic evidence to suggestcardiactamponade.10. The aortic root is normal in size.11. Normal pulmonary artery size.12. Mobile density on tricuspid valve c/w a vegetation.FINDINGS:Left Ventricle: Normal left ventricular size. Low normal left ventricularsystolicfunction. LV Ejection Fraction is 50 % Normal geometry. Dyssynchronous septalmotionconsistent with intraventricular conduction delay or bundle branch block. Afalse tendonis seen in the left ventricle, a normal finding.Right Ventricle: Normal right ventricular size and systolic function. Prominentmoderatorband - normal variant.Left Atrium: The left atrium is normal in size.Right Atrium: Mildly dilated right atrium.Atrial Septum: The interatrial septum is normal in appearance.Mitral Valve: There is trivial mitral regurgitation.Aortic Valve: There is trivial aortic regurgitation.Tricuspid Valve: There is moderate tricuspid regurgitation. The estimated rightventricular systolic pressure is 30-40 mmHg and mild pulmonary hypertension.There is amobile echo density on a leaflet of the tricuspid valve consistent withtricuspid valvevegetation.Pulmonic Valve: There is mild pulmonic regurgitation.Pericardium: Trivial pericardial effusion. No echocardiographic evidence tosuggestcardiac tamponade.Aorta: The aortic root is normal in size.IVC: Normal inferior vena cava.Pulmonary Artery: Normal pulmonary artery size.Rhythm: LBBBMeasurements:2D/MM Value RangeLVIDd 2D 5.14 cm [ 4.20 - 5.84 ]LVIDs 2D 3.16 cm [ 2.50 - 3.98 ]LV FS 2D 38.57 % [ 25.00 - 43.00 ]IVSd 2D 1.02 cm [ 0.60 - 1.00 ]LVPWd 2D 0.86 cm [ 0.60 - 1.00 ]LV Mass 2D 179.79 gLV Mass Index 2D 110.98RWT 0.33EDV 2D 126.07ESV 2D 39.73EF Teich 2D 68 %EF Mod BP 50.00 % [ 52.00 - 72.00 ]LA Dimension 2D 3.96 cm [ 3.00 - 4.00 ]LA Dimension MM 3.97 cm [ 3.00 - 4.00 ]AoR Diam 2D 3.37 cm [ 2.60 - 3.40 ]AoR Diam MM 3.71 cm [ 2.60 - 3.40 ]ACS MM 2.28 cm [ 3.10 - 3.70 ]LVOT Diam 2.20 cm [ 2.30 - 2.90 ]2D/MM Value RangeDoppler Value RangeAV Peak Bryson 1.31 cm/sec [ 100.00 - 170.00 ]AV Mean Bryson 1.00 cm/sec [ 70.00 - 90.00 ]AV Peak PG 6.90 mmHg [ 2.00 - 9.00 ]AV Mean PG 4.28 mmHg [ 2.00 - 4.00 ]AV VTI 17.97 cmAVA VTI 3.26AVA Vmax 3.34LVOT/AV VTI 0.86LVOT Peak Bryson 1.15 cm/sec [ 70.00 - 110.00 ]LVOT Mean Bryson 0.77 cm/sec [ 60.00 - 80.00 ]LVOT Peak PG 5.25 mmHg [ 2.00 - 6.00 ]LVOT Mean PG 2.80 mmHg [ 1.00 - 3.00 ]LVOT VTI 15.41 cm [ 20.00 - 30.00 ]LVOT Diam 2.20 cm [ 2.30 - 2.90 ]MV E Peak Bryson 0.64 cm/sec [ 60.00 - 130.00 ]MV A Peak Bryson 0.62 cm/sec [ 100.00 - 120.00 ]MV E/A 1.03 ratio [ 0.80 - 1.50 ]MV Decel Time 170.03 msec [ 104.00 - 258.00 ]IVRT 89.97 msec [ 32.00 - 101.00 ]TR Peak Bryson 2.43 cm/sec [ 100.00 - 280.00 ]TR Peak PG 23.8 mmHgRA Pressure 3.00 mmHgRVSP 26.80Doppler Value RangeStudy Date: [id number] Signed By: UMU WILSON MDDate: 02/16/2020 09:02 Name Value Range Interpretation Code Description Data Danielle rce(s) Supporting Document(s) ID Date Data Source [id number] 02/18/2020 07:05:00 AM EST [facility] Name Value Range Interpretation Code Description Data Danielle rce(s) Supporting Document(s) AEROBIC CULTURE SOURCE picc line tip [facility] AEROBIC CULTURE Final report [facility] RESULT 1 SEE BELOW [facility] PATIENT: TRINA CAICEDO LOC: [id number],2BILL# : [id number] : 1985 SEX: MORDERED BY: CHRIS CAMACHO ORDERED : 02/14/2020 14:28 COLLECTED: 02/14/2020 14:30ORDER : [id number] RECEIVED : 02/14/2020 14:47 TEST NAME RESULT UNITS RANGES ABN FL ST SITEAEROBIC CULTURE SOURCE picc line tip FAEROBIC CULTURE Final report F RN// RN-LabCodon Landeros [facility] [id number]//RESULT 1 SEE BELOW F RN// No growth in 56 - 72 hours.// RA-LabCodon Landeros [facility] [id number]// -------- ID Date Data Source [id number] 02/14/2020 08:01:00 AM EST [facility] Name Value Range Interpretation Code Description Data Danielle rce(s) Supporting Document(s) WBC 13.1 x10E3/uL 4.3-10.9 H [facility] Ho spital RBC 4.21 x10E6/uL 4.70-6.20 L [facility] spital HEMOGLOBIN 10.4 g/dl 13.0-17.0 [facility] HEMATOCRIT 33.9 % 39.0-50.0 L [facility] MCV 80.5 fl 82.0-98.0 L [facility] MCH 24.7 pg 27.5-33.5 L [facility] MCHC 30.7 g/dl 32.0-36.0 L [facility] RDW 19.4 % 11.5-14.5 H [facility] PLATELET COUNT 379 x10E3/uL 130-400 [facility] (Slide estimate appears adequate) MPV 9.7 fl 8.6-12.6 [facility] SEGMENTED NEUTROPHILS 76.0 % 44.0-74.0 H [facility] BAND 0.0 % 0.0-4.0 [facility] LYMPHOCYTES 14.0 % 15.0-45.0 L [facility] MONOCYTES 9.0 % 2.0-13.0 [facility] EOSINOPHILS 1.0 % 0.0-6.0 [facility] BASOPHILS 0.0 % 0.0-2.0 [facility] NEUTROPHIL ABSOLUTE 10.0 x10E3/uL 1.4-7.0 H [facility] LYMPHOCYTES ABSOLUTE 1.8 x10E3/uL 1.0-3.4 [facility] MONOCYTE ABSOLUTE 1.2 x10E3/uL 0.2-1.0 H [facility] EOSINOPHIL ABSOLUTE 0.1 x10E3/uL 0.0-0.5 [facility] BASOPHIL ABSOLUTE 0.0 x10E3/uL 0.0-0.2 [facility] R [facility] [address] * ID Date Data Source [id number] 02/14/2020 07:58:00 AM EST [facility] Name Value Range Interpretation Code Description Data Danielle rce(s) Supporting Document(s) DIFFERENTIAL SCAN PERFORMED [facility], Dept of [address] [address] * ID Date Data Source [id number] 02/14/2020 07:38:00 AM EST [facility] Name Value Range Interpretation Code Description Data Danielle rce(s) Supporting Document(s) ESTIMATED GFR (CALCULATED) [facility] EGFR 123 [facility] >59 mL/min/1.73m2 EGFR, -HONDURAN 143 [facility] >59 mL/min/1.43r9Ygvr: Persistent reduction for 3 months or more in an eGFR <60 mL/min/1.73m2 defines CKD. Patients with eGFR values >=60 mL/min/1.73m2 may also have CKD if evidence of persistent proteinuria is present. Additional information may be found at [email or web address]. R [facility], Dept of [address] [place] [address] * ID Date Data Source [id number] 02/14/2020 07:38:00 AM [facility] Name Value Range Interpretation Code Description Data Danielle rce(s) Supporting Document(s) PROTEIN, TOTAL 7.8 g/dl 6.4-8.2 [facility] ospital ALKALINE PHOSPHATASE 263 U/l 10-118 H [facility] SGOT (AST) 43 U/l 3-40 H [facility] SGPT (ALT) 102 U/l 7-50 H [facility] BILIRUBIN, TOTAL 0.19 mg/dl 0.30-1.20 L [facility] BILIRUBIN, DIRECT 0.06 mg/dl 0.00-0.40 [facility] BILIRUBIN, INDIRECT 0.13 mg/dl 0.10-1.[address] [facility], Dept of [facility] [address] [place] [address] * ID Date Data Source [id number] 02/14/2020 07:38:00 AM [facility] Name Value Range Interpretation Code Description Data Danielle rce(s) Supporting Document(s) GLUCOSE 94 mg/dl 70-100 [facility] BUN 23 mg/dl 5-21 H [facility] CREATININE, SERUM 0.69 mg/dl 0.60-1.30 [facility] SODIUM 137 mmol/l 136-146 [facility] POTASSIUM 4.7 mmol/l 3.5-5.3 [facility] CHLORIDE 103 mmol/l 96-109 [facility] CARBON DIOXIDE 20 mmol/l 20-32 [facility] ospital ALBUMIN 3.5 g/dl 3.5-5.0 [facility] CALCIUM 8.9 mg/dl 8.4-10.4 [facility] PHOSPHOROUS 4.1 mg/dl 2.8-4.7 [facility] R [facility], Dept of [facility] [address] [place] [address] * ID Date Data Source [id number] 02/13/2020 01:56:00 PM [facility] PAGE: [address] [place], [place] [address] [id number] [facility] [address] REC NUM: [id number] : 1985 Med Reconciliation Patient: TIBURCIO SINGLETARY Medication Reconciliation Report Health ServicesVisitID: [id number] [place] [id number] [phone], MRegistration Date/Time: 02/13/2020 13:56 Weight: 58.9 kgHeight/Length: 67 in.BMI: 20.4 ALLERGIES:No Known Drug Allergy The patient's Home Medications are listed below: THE FOLLOWING MEDICATIONS NEED TO BE RECONCILED: Acetaminophen Oral 650 mg, q6h, fever, prn Aspercreme Lidocaine External (4 %) mild back, daily cefTRIAXone Sodium Intravenous (2 gm), daily, 28 days CeleBREX Oral (200 mg) 1 capsule, daily Cyclobenzaprine HCl Oral (10 mg) 1 tablet, q8h, spasams, 7 days, prn Gabapentin Oral 200 mg 1 tablet, 3x a day Omeprazole Oral (40 mg) 1 capsule, daily Poly-Iron 150 Oral 1 capsule, 2x a day Ramelteon Oral (8 mg) 1 tablet, daily, at bedtime Senna S Oral (8.6-50 mg) 2 tablets, daily, at bedtime Ventolin HFA Inhalation 2 puffs, q4h, sob, prn The source(s) of the original Home Medication information: Not obtained.The following Medications were given to the patient in the Emergency Department:IV NS w/ bolus IV Fluids bolus 1000 mL wide open, then 1000 mL/hr, administered: 14:55 02/13/2020Rocephin [IV] IVP 2 gm, administered: 16:20 02/13/2020Ketorolac [IVP] IVP 30 mg, administered: 17:18 02/13/2020Vancomycin [IVPB] IVPB bolus 0, then 1000 mg 120 mL/hr, administered: 18:08 02/13/2020The following Medications were prescribed to the patient: None. Name Value Range Interpretation Code Description Data Danielle rce(s) Supporting Document(s) ID Date Data Source [id number] 02/13/2020 01:56:00 PM [facility] PAGE: [address] [place] [address] , [place] [address] [facility] REC NUM: [id number] : 1985 Physician Discharge Report [facility] [address] [place] [id number] Patient: TIBURCIO SINGLETARY : M : 1985 Age: 34yArrival: 02/13/2020 13:56 Departure: 02/13/2020 20:15 Disposition: Admit Weight:58.9 kg (S). Height/Length:67 inches (S). BMI:20.4 Time Seen: 14:25 02/13/2020. Arrived- By private vehicle. Historian- patient. HISTORY OF PRESENT ILLNESSChief Complaint: PICC line evaluation. This started today and is still present. When seen in the E.D., severity described as moderate. Modifying factors. Not relieved by anything. No current or associated symptoms. (34-year-old male with PMHx of endocarditis presents to the ER from [facility] for evaluation of a PICC line malfunction and elevated white blood cell count. Also reports mild SOB. States he has been at the [facility] for the past 2 weeks. Admitted in [place] for 2 weeks prior to that for endocarditis tx. States he receives 2 g Rocephin IV daily. Scheduled to receive abx until 02/26/20.). REVIEW OF SYSTEMSNo fever, nausea or vomiting. He has had difficulty breathing. All other systems reviewed and are negative. PAST HISTORYSee nurses notes. Problems:Endocarditis. Medications:Ventolin HFA Inhalation 2 puffs, q4h as needed, sob. PAGE: [facility] TIBURCIO SINGLETARY[address] [facility] [address] REC NUM: [id number] : 1985 Ramelteon Oral (Tablet 8 mg) 1 tablet, daily at bedtime.Omeprazole Oral (Capsule Delayed Release 40 mg) 1 capsule, daily.Gabapentin Oral 200 mg 1 tablet, 3x a day.Cyclobenzaprine HCl Oral (Tablet 10 mg) 1 tablet, q8h as needed, spasams, started 02/11/2020, stopped 02/18/2020 (7 days).CeleBREX Oral (Capsule 200 mg) 1 capsule, daily.Aspercreme Lidocaine External (Patch 4 %) mild back, daily.cefTRIAXone Sodium Intravenous (Solution Reconstituted 2 gm), daily, started 01/29/2020, stopped 02/26/2020 (28 days).Senna S Oral (Tablet 8.6-50 mg) 2 tablets, daily at bedtime.Poly-Iron 150 Oral 1 capsule, 2x a day.Acetaminophen Oral 650 mg, q6h as needed, fever. Allergies:No Known Drug Allergy. SOCIAL HISTORYNever smoker. IV drug use: heroin. Is a recovering addict. No alcohol use. FAMILY HISTORYNo significant family medical history. ADDITIONAL NOTESThe nursing notes have been reviewed. PHYSICAL EXAMVital Signs: 02/13/2020 14:26 BP: 1 10/77. MAP: 88. HR: 106. RR: 18. O2 saturation: 98%. Temp: 98.1 F. Have been reviewed. Tachycardic. Oxygen saturation: room air- oxygen saturation normal. Appearance: Alert. No acute distress. Eyes: Eyes normal inspection. ENT: (nml external inspection). Neck: Normal inspection. Neck supple. CVS: Normal heart rate and rhythm. Heart sounds normal. Respiratory: No respiratory distress. Breath sounds normal. Abdomen: Soft and nontender. Bowel sounds normal. Back: Normal inspection. Skin: Skin warm and dry. Normal skin color. No rash. Extremities: Extremities exhibit normal ROM. (PICC line present in left upper arm). Neuro: Oriented X 3. No motor deficit. No sensory deficit. LABS, X-RAYS, AND EKGLaboratory Tests: SARS-COV-2/INFLUENZA/RSV: (JOHN: 02/13/2020 16:30)( MsgRcvd 02/13/2020 17:51) Final results Test Result Flag Units (Reference) PAGE: 3RPILGRIM PS[facility]CH[facility]ATRIC CENTERLAN [address] [place] [address] [facility] NUM: [id number] : 1985 SARS-COV-2 ZULY NEGATIVE (NEGATIVE) T esting performed by nucleic acid amplification.This test has not been FDA cleared or approved. This test has beenauthorized by FDA under an Emergency Use Authorization (EUA). This test isonly authorized for the duration of the declaration that circumstancesexist justifying the authorization of emergency use of in vitro diagnostictests for detection and/or diagnosis of COVID-19 under Section 564(b)(1) ofthe Act, 21 U.S.C. 360bbb-3(b)(1), unless the authorization is terminatedor revoked sooner. Negative results do not preclude SARS-COV-2,influenza A virus, influenza B virus and/or RSV infection and should not beused as a sole basis for treatment or other patient management decisions.Negative results must be combined with clinical observation and/orepidemoilogical information. INFLUENZA A ZULY NEGATIVE (NEGATIVE) Testing performed by nucleic acid amplification. Please refer to SARS-COV-2 result comment for FDA approval and EUA information. INFLUENZA B ZULY NEGATIVE (NEGATIVE) Testing performed by nucleic acid amplification. Please refer to SARS-COV-2 result comment for FDA approval and EUA information. RSV ZULY NEGATIVE (NEGATIVE) Testing performed by nucleic acid amplification. Please refer to SARS-COV-2 result comment for FDA approval and EUA information. EGFR (CALCULATED): (JOHN: 02/13/2020 14:34)( MsgRcvd 02/13/2020 15:13) Final results Test Result Flag Units (Reference)ESTIMATED GFR (CALCULATED) EGFR 122 >59 mL/min/1.73m2 EGFR, -HONDURAN 142 >59 mL/min/1.48s1Fiju: Persistent reduction for 3 months or more in an eGFR <60 mL/min/1.73m2 PAGE: 4RPILGRIM PSYCHIATRIC CENTERLAN [id number] [place] [address] , [place] [address] [facility] REC NUM: [id number] : 1985 defines CKD. Patients with eGFR values >=60 mL/min/1.73m2 may also have CKD if evidence of persistent proteinuria is present. Additional information may be found at [email or web address]/professionals/kdoqi. DIFFERENTIAL SCAN: (JOHN: 02/13/2020 14:34)( MsgRcvd 02/13/2020 15:22) Final results Test Result Flag Units (Reference)DIFFERENTIAL SCAN DIFF REQUIRED AB Above is a corrected result. Previously reported on ( [facility] [place] 02/13/2020 15:17) as:DIFFERENTIAL SCAN PERFORMED MANUAL DIFFERENTIAL: (JOHN: 02/13/2020 14:34)( MsgRcvd 02/13/2020 15:24) Final results Test Result Flag Units (Reference)MANUAL DIFFERENTIAL PERFORMED ELECTROCARDIOGRAM-EMERGENCY DEPT: (JOHN: 02/13/2020 14:26)( MsgRcvd 02/13/2020 15:19) Final results Test Result Flag Units (Reference)-- Vent Rate: 105 bpmRR Interval: 571 msecPR Interval: 141 m secQRS Duration: 79 msecQT Interval: 343 msecQTC Interval: 454 msecP-R-T [place]: 54 - 44 - 23 degrees""Sinus tachycardia...rate> 99Probable left atrial enlargement...P >50mS, <-0.10mV V1""Study Date: [id number]""Electronically Signed By: BHAVIK CARNEY MD PAGE: [address] [place] [address] REC NUM: [id number] : 1985 Date: 02/13/2020 15:19 Chest 1 View Portable: (JOHN: 02/13/2020 14:26)( MsgRcvd 02/13/2020 15:00) Final results Test Result Flag Units (Reference)-- CLINICAL HISTORY:Shortness of breath. Presents from nursing facility. Treatedfor endocarditis.Pt Is PUI for COVID and possible sepsis.COMPARISON:There are no studies available for comparisonTECHNIQUE: A single view of the chest was obtained.FINDINGS: There is right midlung consolidation. There is left suprahilarairspace consolidation. Findings suspect for multifocal pneumonia. Costophrenicangles are sharp. Cardiac silhouette is enlarged. Trachea is midline. No grossbony abnormality.&quot ;"IMPRESSION:Bilateral pulmonary consolidation suspect for multifocal pneumonia.""Electronically Signed By: XU BURGESS DODate: 02/13/2020 14:59 Protime Not on Therapy: (JOHN: 02/13/2020 14:34)( MsgRcvd 02/13/2020 15:08) Final results Test Result Flag Units (Reference)PT (NO THERAPY/UNKNOWN) 13.7 seconds (11.7- 14.5) INR 1.1 INTERNATIONAL NORMALIZED RATIO(INR) INDICATIONS INR RANGE PATIENTS NOT ON ANTICOAGULANT THERAPY * DEEP VENOUS THROMBOSIS 2.0- 3.0 PULMONARY EMBOLISM 2.0-3.0 ATRIAL FIBRILLATION 2.0-3.0 PROPHYLAXIS: 2.0-3.0 HIGH-RISK SURGERY TISSUE HEART VALVES ATRIAL FIBRILLATION ACUTE MYOCARDIAL INFARCTION VALVULAR HEART DISEASE MECHANICAL PROSTHETIC VALVE 2.5-3.5* USE OF INR VALUES SHOULD BE LIMITED TO PATIENTS WHO ARE PAGE: [address] [place], [place] [address]LAN [address] NUM: [id number] : 1985 ON STABLE ORAL ANTICOAGULANT THERAPY. AN INR ABOVE 5.0-5.5 APPEARS TO BE ASSOCIATED WITH AN UNACCEPTABLY HIGH RISK OF BLEEDING. CBC w Diff: (JOHN: 02/13/2020 14:34)( MsgRcvd 02/13/2020 15:22) Final results Test Result Flag Units (Reference)WBC 18.6 H x10E3/uL (4.3-10.9) RBC 3.95 L x10E6/uL (4.70- 6.20) HEMOGLOBIN 9.9 L g/dl (13.0-17.0) HEMATOCRIT 31.4 L % (39.0-50.0) MCV 79.5 L fl (82.0-98.0) MCH 25.1 L pg (27.5-33.5) MCHC 31.5 L g/dl (32.0-36.0) RDW 19.2 H % (11.5-14.5) PLATELET COUNT 408 H x10E3/uL (130-400) (Slide estimate appears increased) MPV 9.4 fl (8.6-12.6) SEGMENTED NEUTROPHILS 84.0 H % (44.0-74.0) BAND 0.0 % (0.0-4.0) LYMPHOCYTES 9.0 L % (15.0-45.0) MONOCYTES 6.0 % (2.0-13.0) EOSINOPHILS 0.0 % (0.0-6.0) BASOPHILS 0.0 % (0.0-2.0) METAMYELOCYTE 1.0 AB % NEUTROPHIL ABSOLUTE 15.6 H x10E3/uL (1.4-7.0) LYMPHOCYTES ABSOLUTE 1.7 x10E3/uL PAGE: [address] [place] [address] , [place] [address] [facility] REC NUM: [id number] : 1985 (1.0-3.4) MONOCYTE ABSOLUTE 1.1 H x10E3/uL (0.2-1.0) EOSINOPHIL ABSOLUTE 0.0 x10E3/uL (0.0-0.5) BASOPHIL ABSOLUTE 0.0 x10E3/uL (0.0-0.2) ANISOCYTOSIS 1+ AB POIKILOCYTOSIS Slight Comprehensive Panel: (JOHN: 02/13/2020 14:34)( MsgRcvd 02/13/2020 15:13) Final results Test Result Flag Units (Reference)GLUCOSE 99 mg/dl (70-100) BUN 24 H mg/dl (5-21) CREATININE, SERUM 0.70 mg/dl (0.60-1.30) SODIUM 136 mmol/l (136-146) POTASSIUM 4.5 mmol/l (3.5-5.3) CHLORIDE 101 mmol/l (96-109) CARBON DIOXIDE 22 mmol/l (20-32) ALBUMIN 4.0 g/dl (3.5-5.0) PROTEIN, TOTAL 8.0 g/dl (6.4-8.2) CALCIUM 9.4 mg/dl (8.4-10.4) ALKALINE PHOSPHATASE 332 H U/l (10-118) SGOT (AST) 115 H U/l (3-40) SGPT (ALT) 157 H U/l (7-50) BILIRUBIN, TOTAL 0.36 mg/dl (0.30-1.20) BUN/CREATININE RATIO 34.3 H (6.0-20.0) GLOBULIN 4.0 H g/dl PAGE: [address] [place] [address] , [place] [address] [facility] REC NUM: [id number] : 1985 (2.3-3.5) ANION GAP 13.0 mmol/l (7.0-16.0) OSMOLALITY (CALCULATED) 276 L mos/kg (280-300) A/G RATIO 1.0 (1.0-2.0) APTT: (JOHN: 02/13/2020 14:34)( [facility] [place] 02/13/2020 15:09) Final results Test Result Flag Units (Reference)PTT 42.7 H seconds (23.7-35.5) Lactic Acid: (JOHN: 02/13/2020 14:45)( MsgRcvd 02/13/2020 15:09) Final results Test Result Flag Units (Reference)LACTIC ACID 0.7 mmol/L (0.5-2.2) Troponin-I Quant: (JOHN: 02/13/2020 14:34)( [facility] 02/13/2020 15:14) Final results Test Result Flag Units (Reference)TROPONIN I <0.300 ng/ml Negative: < 0.300 Positive: >=0.300Results obtained using Jacky methodology. Please note thatserial determinations should be monitored using the same methodology. Type & Cross: (JOHN: 02/13/2020 15:30)( [facility] 02/13/2020 16:05) Final results Test Result Flag Units (Reference)TYPE + SCREEN PATIENT: TRINA CAICEDO LOC: MILLER BILL# : [id number] : 1985 SEX: M ORDERED BY: CARLOS HAMPTON ORDERED : 02/13/2020 14:26 PAGE: 9[facility] TIBURCIO [address] [place] [address] REC NUM: [id number] : 1985 COLLECTED: 02/13/2020 15:30 ORDER : [id number] RECEIVED : 02/13/2020 15:34 TEST NAME RESULT ABO TYPE O 02/13/20 16:01 JSS1 RH TYPE POS 02/13/20 16:01 JSS1 ANTIBODY SCREEN NEG 02/13/20 16:01 JSS1 . PROGRESS AND PROCEDURESCourse of Care: 18:13. Discussed pt with Dr. Boudreaux. Agrees to accept pt to PCU with tele. Patient counseled in person regarding the patient's test results, diagnosis and need for admission. Patient agrees with plan of care. CLINICAL IMPRESSIONBacterial pneumonia. (Electronically signed by BERTA GONZALEZ 02/13/2020 20:28) Addenda TIBURCIO Sarabia VisitID: [id number] Date: 02/13/2020 02/13/2020 14:25The patient was evaluated during the global COVID-19 pandemic, and that diagnosis was suspected/considered upon their initial presentation. Their PAGE: [address] [place] [address] [address] REC NUM: [id number] : 1985 evaluation, treatment and testing was consistent with current guidelines for patients who present with complaints or symptoms that may be related to COVID-19. (Electronically signed by BERTA GONZALEZ - 02/13/2020 14:25) Name Value Range Interpretation Code Description Data [facility] rce(s) Supporting Document(s) ID Date Data Source [id number] 02/13/2020 07:49:00 PM EST [facility] Name Value Range Interpretation Code Description Data [facility] rce(s) Supporting Document(s) LACTIC ACID 1.7 mmol/L 0.5-2.2 [facility], Dept of [address] [address] * ID Date Data Source [id number] 02/13/2020 07:33:00 PM EST [facility] Name Value Range Interpretation Code Description Data Danielle rce(s) Supporting Document(s) URINE COLOR YELLOW YELLOW [facility] URINE APPEARANCE CLEAR CLEAR [facility] URINE SPECIFIC GRAVITY 1.025 1.003-1.035 [facility] URINE LEUKOCYTES NEGATIVE NEGATIVE [facility] URINE NITRITE NEGATIVE NEGATIVE [facility] URINE PH 5.0 5.0-8.0 [facility] URINE PROTEIN NEGATIVE mg/dl NEGATIVE [facility] URINE GLUCOSE NEGATIVE mg/dl NEGATIVE [facility] URINE KETONES NEGATIVE mg/dl NEGATIVE [facility] URINE UROBILINOGEN 0.2 mg/dl NORMAL OR <1 [facility] URINE BILIRUBIN NEGATIVE NEGATIVE [facility] URINE OCCULT BLOOD NEGATIVE NEGATIVE [facility] URINE MICROSCOPIC PERFORMED [facility] Microscopic performed . Elements observed are listed. If no elements are listed,the Microscopic is negative. WBC 2-5 hpf 0-5 [facility] BACTERIA 1+ hpf NEGATIVE A [facility] MUCOUS THREADS 1+ hpf NEGATIVE A [facility] ospital URINE C+S IF INDICATED NOT INDICATED [facility] R [facility], [facility] [place] [id number] * ID Date Data Source [id number] 02/13/2020 04:37:00 PM EST [facility] Name Value Range Interpretation Code Description Data Danielle rce(s) Supporting Document(s) SARS coronavirus 2 RNA [facility] This lab was ordered by [facility] R [facility]OM (ER) and reported by [facility]. ID Date Data Source [id number] 02/13/2020 05:50:00 PM EST [facility] Name Value Range Interpretation Code Description Data [facility] rce(s) Supporting Document(s) SARS-COV-2 ZULY NEGATIVE NEGATIVE [facility] ospital Testing perfo rmed by nucleic acid amplification.This test has not been FDA cleared or approved. This test has beenauthorized by FDA under an Emergency Use Authorization (EUA). This test isonly authorized for the duration of the declaration that circumstancesexist justifying the authorization of emergency use of in vitro diagnostictests for detection and/or diagnosis of COVID-19 under Section 564(b)(1) ofthe Act, 21 U.S.C. 360bbb-3(b)(1), unless the authorization is terminatedor revoked sooner. Negative results do not preclude SARS-COV-2,influenza A virus, influenza B virus and/or RSV infection and should not beused as a sole basis for treatment or other patient management decisions.Negative results must be combined with clinical observation and/orepidemoilogical information. INFLUENZA A ZULY NEGATIVE NEGATIVE [facility] Testing perfo rmed by nucleic acid amplification. Please refer to SARS-COV-2 result comment for FDA approval and EUA information. INFLUENZA B ZULY NEGATIVE NEGATIVE [facility] Testing perfo rmed by nucleic acid amplification. Please refer to SARS-COV-2 result comment for FDA approval and EUA information. RSV ZULY NEGATIVE NEGATIVE [facility] perfo rmed by nucleic acid amplification. Please refer to SARS-COV-2 result comment for FDA approval and EUA information. [facility], [place] [address] * ID Date Data Source [id number] 02/13/2020 04:05:00 PM [facility] PATIENT: TRINA CAICEDO LOC: MonishaNEAL BILL# : [id number] : 1985 SEX: MORDERED BY: CARLOS HAMPTON ORDERED : 02/13/2020 14:26 COLLECTED: 02/13/2020 15:30ORDER : [id number] RECEIVED : 02/13/2020 15:34 TEST NAME RESULTABO TYPE O 02/13/20 16:01 JSS1RH TYPE POS 02/13/20 16:01 [id number] SCREEN NEG 02/13/20 16:01 JSS1 - Name Value Range Interpretation Code Description Data Danielle rce(s) Supporting Document(s) ID Date Data Source [id number] 02/13/2020 03:09:00 PM [facility] Name Value Range Interpretation Code Description Data Danielle rce(s) Supporting Document(s) LACTIC ACID 0.7 mmol/L 0.5-2.2 [facility] pital [facility] [address] [address] * ID Date Data Source [id number] 02/18/2020 03:45:00 PM [facility] [employer] [address] [place] [address] [facility] [address] [address] Site: RPERP Collected: 02/13/20 14:45BLOOD CULTURE #2 FINAL 02/18/20 15:45 R104/20/19 No growth after 5 days. Name Value Range Interpretation Code Description Data Danielle rce(s) Supporting Document(s) ID Date Data Source [id number] 02/13/2020 03:22:00 PM [facility] Name Value Range Interpretation Code Description Data Danielle rce(s) Supporting Document(s) MANUAL DIFFERENTIAL PERFORMED [facility] [address] [address] * ID Date Data Source [id number] 02/13/2020 03:18:00 PM [facility] Name Value Range Interpretation Code Description Data Danielle rce(s) Supporting Document(s) DIFFERENTIAL SCAN DIFF REQUIRED A [facility], [facility] [address] [address] * ID Date Data Source [id number] 02/13/2020 03:22:00 PM [facility] Name Value Range Interpretation Code Description Data Danielle rce(s) Supporting Document(s) WBC 18.6 x10E3/uL 4.3-10.9 H [facility] spital RBC 3.95 x10E6/uL 4.70-6.20 L [facility] spital HEMOGLOBIN 9.9 g/dl 13.0-17.0 L [facility] HEMATOCRIT 31.4 % 39.0-50.0 L [facility] MCV 79.5 fl 82.0-98.0 L [facility] MCH 25.1 pg 27.5-33.5 L [facility] MCHC 31.5 g/dl 32.0-36.0 L [facility] RDW 19.2 % 11.5-14.5 H [facility] al PLATELET COUNT 408 x10E3/uL 130-400 H [facility] (Slide estimate appears increased) MPV 9.4 fl 8.6-12.6 [facility] SEGMENTED NEUTROPHILS 84.0 % 44.0-74.0 H [facility] BAND 0.0 % 0.0-4.0 [facility] al LYMPHOCYTES 9.0 % 15.0-45.0 L [facility] MONOCYTES 6.0 % 2.0-13.0 [facility] al EOSINOPHILS 0.0 % 0.0-6.0 [facility] BASOPHILS 0.0 % 0.0-2.0 [facility] al METAMYELOCYTE 1.0 % [facility]OLUTE 15.6 x10E3/uL 1.4-7.0 H [facility] LYMPHOCYTES ABSOLUTE 1.7 x10E3/uL 1.0-3.4 [facility] MONOCYTE ABSOLUTE 1.1 x10E3/uL 0.2-1.0 H [facility] EOSINOPHIL ABSOLUTE 0.0 x10E3/uL 0.0-0.5 [facility] BASOPHIL ABSOLUTE 0.0 x10E3/uL 0.0-0.2 [facility] ANISOCYTOSIS 1+ A [facility] pital POIKILOCYTOSIS Slight [facility] ospital R [facility], [place] [address] * ID Date Data Source [id number] 02/13/2020 03:13:00 PM EST [facility] Name Value Range Interpretation Code Description Data Danielle rce(s) Supporting Document(s) TROPONIN I <0.300 ng/ml [facility] spital Negative: < 0.300 Positive: >=0.300Results obtained using Jacky methodology. Please note thatserial determinations should be monitored using the same methodology. R [facility], [facility] [address] [address] * ID Date Data Source [id number] 02/13/2020 03:13:00 PM [facility] Name Value Range Interpretation Code Description Data Danielle rce(s) Supporting Document(s) ESTIMATED GFR (CALCULATED) [facility] EGFR 122 [facility] >59 mL/min/1.73m2 EGFR, -HONDURAN 142 [facility] >59 mL/min/1.92q1Ymcv: Persistent reduction for 3 months or more in an eGFR <60 mL/min/1.73m2 defines CKD. Patients with eGFR values >=60 mL/min/1.73m2 may also have CKD if evidence of persistent proteinuria is present. Additional information may be found at [email or web address]. R [facility], [facility] [address] [place] [address] * ID Date Data Source [id number] 02/13/2020 03:13:00 PM [facility] Name Value Range Interpretation Code Description Data Danielle rce(s) Supporting Document(s) GLUCOSE 99 mg/dl 70-100 [facility] BUN 24 mg/dl 5-21 H [facility] CREATININE, SERUM 0.70 mg/dl 0.60-1.30 [facility] SODIUM 136 mmol/l 136-146 [facility] en[facility]ina POTASSIUM 4.5 mmol/l 3.5-5.3 [facility] en[facility]ina CHLORIDE 101 mmol/l 96-109 [facility] CARBON DIOXIDE 22 mmol/l 20-32 [facility] ospital ALBUMIN 4.0 g/dl 3.5-5.0 [facility] PROTEIN, TOTAL 8.0 g/dl 6.4-8.2 [facility] CALCIUM 9.4 mg/dl 8.4-10.4 [facility] ALKALINE PHOSPHATASE 332 U/l 10-118 [facility] SGOT (AST) 115 U/l 3-40 H [facility] SGPT (ALT) 157 U/l 7-50 [facility] BILIRUBIN, TOTAL 0.36 mg/dl 0.30-1.20 [facility] BUN/CREATININE RATIO 34.3 6.0-20.0 [facility] GLOBULIN 4.0 g/dl 2.3-3.5 H [facility] ANION GAP 13.0 mmol/l 7.0-16.0 [facility] OSMOLALITY (CALCULATED) 276 mos/kg 280-300 L [facility] A/G RATIO 1.0 1.0-2.0 [facility] R [facility], Dept of [facility] [address] [place] [address] * ID Date Data Source [id number] 02/13/2020 03:09:00 PM [facility] Name Value Range Interpretation Code Description Data [facility] rce(s) Supporting Document(s) PTT 42.7 seconds 23.7-35.5 [facility] pital R [facility], Dept of [facility] [address] [place] [address] * ID Date Data Source [id number] 02/13/2020 03:08:00 PM [facility] Name Value Range Interpretation Code Description Data Danielle rce(s) Supporting Document(s) PT (NO THERAPY/UNKNOWN) 13.7 seconds 11.7-14.5 [facility] INR 1.1 [facility] IN TERNATIONAL NORMALIZED RATIO(INR) INDICATIONS INR RANGE PATIENTS NOT ON ANTICOAGULANT THERAPY * DEEP VENOUS THROMBOSIS 2.0-3.0 PULMONARY EMBOLISM 2.0-3.0 ATRIAL FIBRILLATION 2.0-3.0 PROPHYLAXIS: 2.0-3.0 HIGH-RISK SURGERY TISSUE HEART VALVES ATRIAL FIBRILLATION ACUTE MYOCARDIAL INFARCTION VALVULAR HEART DISEASE MECHANICAL PROSTHETIC VALVE 2.5-3.5* USE OF INR VALUES SHOULD BE LIMITED TO PATIENTS WHO ARE ON STABLE ORAL ANTICOAGULANT THERAPY. AN INR ABOVE 5.0-5.5 APPEARS TO BE ASSOCIATED WITH AN UNACCEPTABLY HIGH RISK OF BLEEDING. R [facility], Dept of Path [address] [place] [id number] * ID Date Data Source [id number] 02/18/2020 03:45:00 PM EST [facility] C [facility], [place]. [address] [place] [address] r [facility], DEPT OF PATH [address] [place] [address] Site: RPERP Collected: 02/13/20 14:34BLOOD CULTURE #1 FINAL 02/18/20 15:45 R104/20/19 No growth after 5 days. Name Value Range Interpretation Code Description Data Danielle rce(s) Supporting Document(s) ID Date Data Source [id number] 02/14/2020 11:44:00 AM EST [facility] Name Value Range Interpretation Code Description Data [facility] rce(s) Supporting Document(s) HEP B SURFACE ANTIGEN NON REACTIVE NON REACTIVE [facility] No active o r previous infection. Susceptible to infection.Testing Site Barrett:U= [facility] Department of Pathology,[address] [place] [address], Raleigh Hussein MD,[facility],Merchandising Representative HEP C ANTIBODY REACTIVE NON-REACTIVE [facility] Past or current Hepatitis C infection. Specimen forwarded to reference laboratory for quantitative HCV RNA testing.Testing Site Barrett:U= [facility] Department of Pathology,[address] [place] [address], Raleigh Hussein MD,CPC,Merchandising Representative HEP B CORE ANTIBODY IGM NON REACTIVE NON REACTIVE [facility] IgM antibod ies to HBc were not detected, does not exclude the possibility of exposure to HBV.Testing Site [place]:U= [facility] Department of Pathology,[address] [place] [address], Raleigh Hussein MD,CPC,Merchandising Representative HEP A ANTIBODY IGM NON REACTIVE NON REACTIVE [facility] Testing Site [place]:U= [facility] Department of Pathology,[address] [place] [address], Raleigh Hussein MD,[facility],Merchandising Representative ID Date Data Source [id number] 02/14/2020 05:24:52 AM [facility] ADDENDUM Vent Rate: 105 bpmRR Interval: 571 msecPR Interval: 141 msecQRS Duration: 79 msecQT Interval: 343 msecQTC Interval: 454 msecP-R-T [place]: 54 - 44 - 23 degreesSinus tachycardia...rate> 99Probable left atrial enlargement...P >50mS, <-0.10mV [id number] QTCStudy Date: [id number] Signed By: CRUZ RONDON RUSSELLDate: 02/14/2020 05:24ORIG INALVent Rate: 105 bpmRR Interval: 571 msecPR Interval: 141 msecQRS Duration: 79 msecQT Interval: 343 msecQTC Interval: 454 msecP-R-T [place]: 54 - 44 - 23 degreesSinus tachycardia...rate> 99Probable left atrial enlargement...P >50mS, <-0.10mV Z4Doxcv Date: [id number] Signed By: REINALDO CARNEY MDWDate: 02/13/2020 15:19 Name Value Range Interpretation Code Description Data Danielle rce(s) Supporting Document(s) ID Date Data Source [id number] 02/13/2020 03:00:40 PM [facility] CLINICAL HISTORY:Shortness of breath. Pr esents from nursing facility. Treatedfor endocarditis.Pt Is PUI for COVID and possible sepsis.COMPARISON:There are no studies available for comparisonTECHNIQUE: A single view of the chest was obtained.FINDINGS: There is right midlung consolidation. There is left suprahilarairspace consolidation. Findings suspect for multifocal pneumonia. Costophrenicangles are sharp. Cardiac silhouette is enlarged. Trachea is midline. No grossbony abnormality.IMPRESSION:Bilateral pulmonary consolidation suspect for multifocal pneumonia.Electronically Signed By: Katlin BURGESS DOte: 02/13/2020 14:59 Name Value Range Interpretation Code Description Data Danielle rce(s) Supporting Document(s) ID Date Data Source [id number] 02/12/2020 03:00:00 PM EST [facility] Name Value Range Interpretation Code Description Data Danielle rce(s) Supporting Document(s) :PrThr:Pt:Respiratory:Ord:Probe.amp.tar [facility] This lab was ordered by [facility] in Lab Site and reported by [facility]. ID Date Data Source [id number] 02/14/2020 10:01:00 AM EST [facility] Name Value Range Interpretation Code Description Data Danielle rce(s) Supporting Document(s) CRSP SARS-CoV-2 (RT)-PCR Assay Negative Negative N ormal (applies to non-numeric results) [facility] The [place] FDA has made th is test available under anemergency access mechanism called Emergency Use Authorization (EUA). TheEUA is supported by the coordinating producer of Health and Human Services (HHSs)declaration that circumstances exist to justify the emergency use of invitro diagnostics (IVDs) for the detection and/or diagnosis of the virusthat causes COVID-19.Test performed at [facility] [place] [address]. First Test No [facility] Employed in healthcare No [facility] Symptomatic as defined by CDC No [facility] Hospitalized No [facility] lth System Resident in a congregate care setting Yes [facility] No [facility] Intensive Care No [facility] ealt System The above 8 [place] [address] ID Date Data Source [id number] 02/12/2020 11:17:00 AM EST [facility] Name Value Range Interpretation Code Description Data Danielle rce(s) Supporting Document(s) AST 17 IU/L 15-37 Normal (applies to non-numeric resul ts) [facility] Sulfasalazine and sulfapyridine have the potential to falsely depressAspartate Aminotransferase results. Baseline values before medication administration are recommended. ALT 31 IU/L 16-61 Normal (applies to non-numeric resul ts) [facility] Sulfasalazine and sulfapyridine have the potential to falsely depressAlanine Aminotransferase results. Baseline values before medication administration are recommended. Alkaline Phosphatase 104 mIU/ml 50-136 Normal (applies to n on-numeric results) [facility] Total Bilirubin 0.20 mg/dl 0.20-1.00 Normal (applies to non-numeric results) [facility] Blood Urea Nitrogen 26 mg/dl 7-18 Above high normal [facility] Creatinine 0.76 mg/dl 0.67-1.17 Normal (applies to non-numeric resul ts) [facility] N-Acetylcysteine (NAC) and Metamizole hearn ve the potential to falselydepress Creatinine results. Baseline values before medication adminstration are recommended. Patients undergoing treatment with phenindione will have falselydepressed results. Patients on phenindione therapy should be tested with an alternativeCREA method.Toxic levels of acetaminophen may lead to falsely depressed results forpatient samples. Glomerular Filtration Rate >90.00 mL/min/1.73m2 [facility] GFR Reference Ranges:Normal Function or Mild Renal Disease,if clinically at risk:>or= 60Moderately decreased:30 - 59Severely decreased:15 - 29Renal Failure:<15 Please note that the MDRD equation requires an additional adjustment forAfrican-Americans (multiply the GFR result by 1.210).Glomarular Filtration Rate (GFR) is estimated based on the MDRDequation, which assumes a steady state for creatinine ([place] Int Med 139/2 137-149, 2003), as recommended by the NationalKidney Disease Education Program in conjunction with the National Institutes of Health and the National KidneyFoundation. The [place] method used in calculating this result is traceable to IDWA standards. Glucose 74 mg/dl 70-110 Normal (applies to non-numeric resul ts) [facility] Sulfasalazine has the potential to false ly depress Glucose results. Sulfapyridine has the potential to falsely elevate Glucose results. Baseline values before medication administration are recommended. Calcium 8.7 mg/dl 8.5-10.1 Normal (applies to non-numeric resul ts) [facility] Total Protein 7.6 g/dl 6.4-8.2 Normal (applies to non-numeric re sults) [facility] Albumin 3.1 g/dl 3.4-5.0 Below low normal [facility] Sodium 139 mEq/L 136-145 Normal (applies to non-numeric resul ts) [facility] Potassium 4.7 mEq/L 3.5-5.1 Normal (applies to non-numeric resul ts) [facility] Chloride 107.0 mEq/L 98.0-107.0 Normal (applies to non-numeric resu lts) [facility] Carbon Dioxide 25.2 mMol/L 21.0-32.0 Normal (applies to non-numeric results) [facility] Anion Gap 11.5 7.0-15.0 Normal (applies to non-numeric resul ts) [facility] The above 16 analytes were performed by [facility] [id number] [place] [address], ,[place] [address] ID Date Data Source [id number] 02/12/2020 11:17:00 AM EST [facility] Name Value Range Interpretation Code Description Data Danielle rce(s) Supporting Document(s) C-Reactive Protein (Non-Cardiac) 230.00 mg/L 0.00-3.00 Above high no rmal [facility] The above 1 analytes were performed by [facility] [id number] [place] [address], ,[place] [address] ID Date Data Source [id number] 02/12/2020 10:51:00 AM EST [facility] Name Value Range Interpretation Code Description Data Danielle rce(s) Supporting Document(s) WBC 21.79 x1000/ul 4.80-10.00 Above high normal [facility] RBC 3.67 x1Mil/ul 4.70-6.10 Below low normal [facility] Hemoglobin 9.3 g/dl 14.0-18.0 Below low normal [facility] Hematocrit 29.6 % 42.0-52.0 Below low normal [facility] MCV 80.7 fL 80.0-94.0 Normal (applies to non-numeric resul ts) [facility] MCH 25.3 pg 27.0-31.0 Below low normal [facility] MCHC 31.4 g/dl 32.2-37.0 Below low normal [facility] RDW 19.2 % 11.5-14.5 Above high normal [facility] Platelet Count 288 x1000/ul 130-400 Normal (applies to non-numeric results) [facility] MPV 9.9 fL 9.4-12.4 Normal (applies to non-numeric resul ts) [facility] Nucleated RBCs 0.00 % 0.00-0.20 Normal (applies to non-numeric r esults) [facility] Abs. Nucleated RBCs 0.00 x1000/ul 0.00-0.02 Normal (appl ies to non-numeric results) [facility] The above 12 analytes were performed by [facility] [id number] [facility], ,[place] [address] ID Date Data Source [id number] 02/12/2020 10:48:00 AM EST [facility] Name Value Range Interpretation Code Description Data Danielle rce(s) Supporting Document(s) Sedimentation Rate 70 mm/hr 0-15 Above high normal [facility] The above 1 analytes were performed by [facility] [id number] [place] [address], ,[place] [address] Procedure Social History Code Duration Value Status Description Data Source(s ) Smoking 12/15/2020 12:00:00 AM EDT Never Smoker completed Never S moker eCW1 ([facility]) Smoking 12/15/2020 12:00:00 AM EDT Never Smoker completed Never S moker eCW1 ([facility]) Alcohol intake 11/18/2020 12:00:00 AM EDT Ex-drinker (finding) comp leted Ex- drinker (finding) [facility] Tobacco use and exposure 11/18/2020 12:00:00 AM EDT Never used co mpleted Never used [facility] Smoking 11/18/2020 12:00:00 AM EDT Former smoker completed Former smoker [facility] Smoking 08/12/2020 12:00:00 AM EDT Never Smoker completed Never S moker eCW1 ([facility]) Smoking 08/12/2020 12:00:00 AM EDT Never Smoker completed Never S moker eCW1 ([facility]) Smoking 08/12/2020 12:00:00 AM EDT Never Smoker completed Never S moker eCW1 ([facility]) Smoking 08/12/2020 12:00:00 AM EDT Never Smoker completed Never S moker eCW1 ([facility]) Smoking 08/12/2020 12:00:00 AM EDT Never Smoker completed Never S moker eCW1 ([facility]) Smoking 08/12/2020 12:00:00 AM EDT Never Smoker completed Never S moker eCW1 ([facility]) Smoking 08/12/2020 12:00:00 AM EDT Never Smoker completed Never S moker eCW1 ([facility]) Smoking 08/12/2020 12:00:00 AM EDT Never Smoker completed Never S moker eCW1 ([facility]) Smoking 08/12/2020 12:00:00 AM EDT Never Smoker completed Never S moker eCW1 ([facility]) Smoking 08/04/2020 12:00:00 AM EDT Never Smoker completed Never S moker eCW1 ([facility]) Smoking 08/04/2020 12:00:00 AM EDT Never Smoker completed Never S moker eCW1 ([facility]) Smoking 08/04/2020 12:00:00 AM EDT Never Smoker completed Never S moker eCW1 ([facility]) Smoking 05/20/2020 12:00:00 AM EST Never Smoker completed Never S moker eCW1 ([facility]) Smoking 05/20/2020 12:00:00 AM EST Never Smoker completed Never S moker eCW1 ([facility]) Smoking 05/20/2020 12:00:00 AM EST Never Smoker completed Never S moker eCW1 ([facility]) Smoking 04/30/2020 12:00:00 AM EST Never Smoker completed Never S moker eCW1 ([facility]) Smoking 04/30/2020 12:00:00 AM EST Never Smoker completed Never S moker eCW1 ([facility]) Smoking 04/30/2020 12:00:00 AM EST Never Smoker completed Never S moker eCW1 ([facility]) Smoking 04/22/2020 12:00:00 AM EST Never Smoker completed Never S moker eCW1 ([facility]) Vital Signs ID Date Data Source UNK Name Value Range Interpretation Code Description Data Source(s) Diastolic blood pressure 83 mm[Hg] 83 mm[Hg] [place] ([facility]) Body height 62 [in_i] 62 [in_i] [place] ([facility]) Body mass index (BMI) [Ratio] 27.8 kg/m2 27.8 k g/m2 [place] ([facility]) Systolic blood pressure 131 mm[Hg] 131 mm[Hg] [facility] ([facility]) Body weight 2432 [oz_av] 2432 [oz_av] [place] ([facility]) Diastolic blood pressure 82 mm[Hg] 82 mm[Hg] [place] ([facility]) Body mass index (BMI) [Ratio] 27.5 kg/m2 27.5 k g/m2 [facility] ([facility]) Systolic blood pressure 112 mm[Hg] 112 mm[Hg] [facility] ([facility]) Body weight 2404 [oz_av] 2404 [oz_av] [place] ([facility]) Body height 62 [in_i] 62 [in_i] [facility] ([facility]) Diastolic blood pressure 82 mm[Hg] 82 mm[Hg] [facility] ([facility]) Diastolic blood pressure 82 mm[Hg] 82 mm[Hg] [facility] ([facility]) Body height 62 [in_i] 62 [in_i] [facility] ([facility]) Body mass index (BMI) [Ratio] 27.5 kg/m2 27.5 k g/m2 [facility] ([facility]) Systolic blood pressure 112 mm[Hg] 112 mm[Hg] [facility] Body weight 2404 [oz_av] 2404 [oz_av] [facility] ([facility]) Body height 62 [in_i] 62 [in_i] [facility] ([facility]) Body mass index (BMI) [Ratio] 27.5 kg/m2 27.5 k g/m2 [facility] ([facility]) Systolic blood pressure 112 mm[Hg] 112 mm[Hg] [facility] Body weight 2404 [oz_av] 2404 [oz_av] [facility] ([facility]) Diastolic blood pressure 82 mm[Hg] 82 mm[Hg] [place] ([facility]) Body height 62 [in_i] 62 [in_i] [facility] ([facility]) Body mass index (BMI) [Ratio] 27.5 kg/m2 27.5 k g/m2 [facility] ([facility]) Systolic blood pressure 112 mm[Hg] 112 mm[Hg] A [place] ([facility]) Body weight 2404 [oz_av] 2404 [oz_av] [facility] ([facility]) Diastolic blood pressure 70 mm[Hg] 70 mm[Hg] [facility] ([facility]) Body mass index (BMI) [Ratio] 27.9 kg/m2 27.9 k g/m2 [facility] ([facility]) Systolic blood pressure 107 mm[Hg] 107 mm[Hg] [facility] Body height 62 [in_i] 62 [in_i] [facility] ([facility]) Body weight 2440 [oz_av] 2440 [oz_av] [facility] ([facility]) Diastolic blood pressure 70 mm[Hg] 70 mm[Hg] [facility] ([facility]) Body height 62 [in_i] 62 [in_i] [facility] ([facility]) Body mass index (BMI) [Ratio] 27.9 kg/m2 27.9 k g/m2 [facility] ([facility]) Systolic blood pressure 107 mm[Hg] 107 mm[Hg] [facility] Body weight 2440 [oz_av] 2440 [oz_av] [facility] ([facility]) Diastolic blood pressure 70 mm[Hg] 70 mm[Hg] [facility] ([facility]) Body height 62 [in_i] 62 [in_i] [facility] ([facility]) Body mass index (BMI) [Ratio] 27.9 kg/m2 27.9 k g/m2 [facility] ([facility]) Systolic blood pressure 107 mm[Hg] 107 mm[Hg] [facility] ([facility]) Body weight 2440 [oz_av] 2440 [oz_av] [facility] ([facility]) Diastolic blood pressure 70 mm[Hg] 70 mm[Hg] [facility] ([facility]) Body height 62 [in_i] 62 [in_i] [facility] ([facility]) Body mass index (BMI) [Ratio] 27.9 kg/m2 27.9 k g/m2 [facility] ([facility]) Systolic blood pressure 107 mm[Hg] 107 mm[Hg] A [place] ([facility]) Body weight 2440 [oz_av] 2440 [oz_av] [place] ([facility]) Diastolic blood pressure 70 mm[Hg] 70 mm[Hg] [place] ([facility]) Body height 62 [in_i] 62 [in_i] [facility] ([facility]) Body mass index (BMI) [Ratio] 27.9 kg/m2 27.9 k g/m2 [facility] ([facility]) Systolic blood pressure 107 mm[Hg] 107 mm[Hg] [facility] Body weight 2440 [oz_av] 2440 [oz_av] [facility] ([facility]) Diastolic blood pressure 87 mm[Hg] 87 mm[Hg] [facility] ([facility]) Body height 62 [in_i] 62 [in_i] [place] ([facility]) Body mass index (BMI) [Ratio] 27.9 kg/m2 27.9 k g/m2 [facility] ([facility]) Body weight 2440 [oz_av] 2440 [oz_av] [facility] ([facility]) Systolic blood pressure 127 mm[Hg] 127 mm[Hg] [facility] Body weight 2440 [oz_av] 2440 [oz_av] [facility] ([facility]) Diastolic blood pressure 87 mm[Hg] 87 mm[Hg] [facility] ([facility]) Body height 62 [in_i] 62 [in_i] [place] ([facility]) Body mass index (BMI) [Ratio] 27.9 kg/m2 27.9 k g/m2 [facility] ([facility]) Systolic blood pressure 127 mm[Hg] 127 mm[Hg] [facility] Diastolic blood pressure 87 mm[Hg] 87 mm[Hg] [facility] ([facility]) Body height 62 [in_i] 62 [in_i] [facility] ([facility]) Body mass index (BMI) [Ratio] 27.9 kg/m2 27.9 k g/m2 [facility] ([facility]) Systolic blood pressure 127 mm[Hg] 127 mm[Hg] A [place] ([facility]) Body weight 2440 [oz_av] 2440 [oz_av] [place] ([facility]) Diastolic blood pressure 87 mm[Hg] 87 mm[Hg] [facility] ([facility]) Body height 62 [in_i] 62 [in_i] [facility] ([facility]) Body mass index (BMI) [Ratio] 27.9 kg/m2 27.9 k g/m2 [facility] ([facility]) Systolic blood pressure 127 mm[Hg] 127 mm[Hg] A [place] ([facility]) Body weight 2440 [oz_av] 2440 [oz_av] [facility] ([facility]) Diastolic blood pressure 87 mm[Hg] 87 mm[Hg] [facility] ([facility]) Body height 62 [in_i] 62 [in_i] [facility] ([facility]) Body mass index (BMI) [Ratio] 27.9 kg/m2 27.9 k g/m2 [facility] ([facility]) Systolic blood pressure 127 mm[Hg] 127 mm[Hg] A [facility] ([facility]) Body weight 2440 [oz_av] 2440 [oz_av] [facility] ([facility]) Diastolic blood pressure 87 mm[Hg] 87 mm[Hg] [facility] ([facility]) Body height 62 [in_i] 62 [in_i] [facility] ([facility]) Body mass index (BMI) [Ratio] 27.9 kg/m2 27.9 k g/m2 [facility] ([facility]) Systolic blood pressure 127 mm[Hg] 127 mm[Hg] A [facility] ([facility]) Body weight 2440 [oz_av] 2440 [oz_av] [facility] ([facility]) Body weight 155 [lb_av] 155 [lb_av] eCW1 ([facility]) Body weight 70.31 kg 70.31 kg eCW1 ([facility]) Body height 53 [in_i] 53 [in_i] eCW1 ([facility]) Body mass index (BMI) [Ratio] 38.79 kg/m2 38.79 kg/m2 eCW1 ([facility]) Heart rate 112 /min 112 /min eCW1 ([facility]) Respiratory rate 16 /min 16 /min eCW1 ([facility]) Body temperature 97.4 [degF] 97.4 [degF] eCW1 ( [facility]) Systolic blood pressure 118 mm[Hg] 118 mm[Hg] e CW1 ([facility]) Diastolic blood pressure 74 mm[Hg] 74 mm[Hg] eCW1 ([facility]) Diastolic blood pressure 86 mm[Hg] 86 mm[Hg] [facility] ([facility]) Diastolic blood pressure 104 mm[Hg] 104 mm[Hg] [facility] ([facility]) Body height 62 [in_i] 62 [in_i] [facility] ([facility]) Body mass index (BMI) [Ratio] 28 kg/m2 28 kg/ m2 [facility] ([facility]) Systolic blood pressure 122 mm[Hg] 122 mm[Hg] A [facility] ([facility]) Systolic blood pressure 154 mm[Hg] 154 mm[Hg] A [facility] ([facility]) Body weight 2450 [oz_av] 2450 [oz_av] [facility] ([facility]) Diastolic blood pressure 86 mm[Hg] 86 mm[Hg] [facility] ([facility]) Body height 62 [in_i] 62 [in_i] [facility] ([facility]) Diastolic blood pressure 104 mm[Hg] 104 mm[Hg] [facility] ([facility]) Body mass index (BMI) [Ratio] 28 kg/m2 28 kg/ m2 [facility] ([facility]) Systolic blood pressure 154 mm[Hg] 154 mm[Hg] A THENA ([facility]) Systolic blood pressure 122 mm[Hg] 122 mm[Hg] A THENA ([facility]) Body weight 2450 [oz_av] 2450 [oz_av] CHARAN ([facility]) Diastolic blood pressure 86 mm[Hg] 86 mm[Hg] CHARAN ([facility]) Diastolic blood pressure 104 mm[Hg] 104 mm[Hg] CHARAN ([facility]) Body height 62 [in_i] 62 [in_i] CHARAN ([facility]) Body mass index (BMI) [Ratio] 28 kg/m2 28 kg/ m2 CHARAN ([facility]) Systolic blood pressure 122 mm[Hg] 122 mm[Hg] A THENA ([facility]) Systolic blood pressure 154 mm[Hg] 154 mm[Hg] A THENA ([facility]) Body weight 2450 [oz_av] 2450 [oz_av] CHARAN ([facility]) Diastolic blood pressure 86 mm[Hg] 86 mm[Hg] CHARAN ([facility]) Diastolic blood pressure 104 mm[Hg] 104 mm[Hg] CHARAN ([facility]) Body height 62 [in_i] 62 [in_i] CHARAN ([facility]) Body mass index (BMI) [Ratio] 28 kg/m2 28 kg/ m2 CHARAN ([facility]) Systolic blood pressure 122 mm[Hg] 122 mm[Hg] A THENA ([facility]) Systolic blood pressure 154 mm[Hg] 154 mm[Hg] [facility] Body weight 2450 [oz_av] 2450 [oz_av] CHARAN ([facility]) Body mass index (BMI) [Ratio] 28 kg/m2 28 kg/ m2 CHARAN ([facility]) Systolic blood pressure 122 mm[Hg] 122 mm[Hg] A THENA ([facility]) Systolic blood pressure 154 mm[Hg] 154 mm[Hg] [facility] Body weight 2450 [oz_av] 2450 [oz_av] CHARAN ([facility]) Diastolic blood pressure 86 mm[Hg] 86 mm[Hg] CHARAN ([facility]) Diastolic blood pressure 104 mm[Hg] 104 mm[Hg] CHARAN ([facility]) Body height 62 [in_i] 62 [in_i] CHARAN ([facility]) Body mass index (BMI) [Ratio] 28 kg/m2 28 kg/ m2 CHARAN ([facility]) Systolic blood pressure 122 mm[Hg] 122 mm[Hg] A THENA ([facility]) Systolic blood pressure 154 mm[Hg] 154 mm[Hg] A THENA ([facility]) Body weight 2450 [oz_av] 2450 [oz_av] CHARAN ([facility]) Diastolic blood pressure 86 mm[Hg] 86 mm[Hg] CHARAN ([facility]) Diastolic blood pressure 104 mm[Hg] 104 mm[Hg] CHARAN ([facility]) Body height 62 [in_i] 62 [in_i] CHARAN ([facility]) Diastolic blood pressure 86 mm[Hg] 86 mm[Hg] CHARAN ([facility]) Diastolic blood pressure 104 mm[Hg] 104 mm[Hg] CHARAN ([facility]) Body height 62 [in_i] 62 [in_i] CHARAN ([facility]) Body mass index (BMI) [Ratio] 28 kg/m2 28 kg/ m2 CHARAN ([facility]) Systolic blood pressure 122 mm[Hg] 122 mm[Hg] A THENA ([facility]) Systolic blood pressure 154 mm[Hg] 154 mm[Hg] [facility] Body weight 2450 [oz_av] 2450 [oz_av] CHARAN ([facility]) Diastolic blood pressure 81 mm[Hg] 81 mm[Hg] CHARAN ([facility]) Body height 62 [in_i] 62 [in_i] CHARAN ([facility]) Body mass index (BMI) [Ratio] 26.8 kg/m2 26.8 k g/m2 CHARAN ([facility]) Systolic blood pressure 111 mm[Hg] 111 mm[Hg] A THENA ([facility]) Body weight 2344 [oz_av] 2344 [oz_av] CHARAN ([facility]) Diastolic blood pressure 81 mm[Hg] 81 mm[Hg] CHARAN ([facility]) Body mass index (BMI) [Ratio] 26.8 kg/m2 26.8 k g/m2 CHARAN ([facility]) Body height 62 [in_i] 62 [in_i] CHARAN ([facility]) Body weight 2344 [oz_av] 2344 [oz_av] CHARAN ([facility]) Systolic blood pressure 111 mm[Hg] 111 mm[Hg] A THENA ([facility]) Diastolic blood pressure 81 mm[Hg] 81 mm[Hg] CHARAN ([facility]) Body height 62 [in_i] 62 [in_i] CHARAN ([facility]) Body mass index (BMI) [Ratio] 26.8 kg/m2 26.8 k g/m2 CHARAN ([facility]) Systolic blood pressure 111 mm[Hg] 111 mm[Hg] A THENA ([facility]) Body weight 2344 [oz_av] 2344 [oz_av] CHARAN ([facility]) Diastolic blood pressure 81 mm[Hg] 81 mm[Hg] CHARAN ([facility]) Body height 62 [in_i] 62 [in_i] CHARAN ([facility]) Body mass index (BMI) [Ratio] 26.8 kg/m2 26.8 k g/m2 CHARAN ([facility]) Systolic blood pressure 111 mm[Hg] 111 mm[Hg] [facility] Body weight 2344 [oz_av] 2344 [oz_av] CHARAN ([facility]) Diastolic blood pressure 81 mm[Hg] 81 mm[Hg] CHARAN ([facility]) Body height 62 [in_i] 62 [in_i] CHARAN ([facility]) Body mass index (BMI) [Ratio] 26.8 kg/m2 26.8 k g/m2 CHARAN ([facility]) Systolic blood pressure 111 mm[Hg] 111 mm[Hg] A [facility] ([facility]) Body weight 2344 [oz_av] 2344 [oz_av] CHARAN ([facility]) Diastolic blood pressure 81 mm[Hg] 81 mm[Hg] CHARAN ([facility]) Body height 62 [in_i] 62 [in_i] CHARAN ([facility]) Body mass index (BMI) [Ratio] 26.8 kg/m2 26.8 k g/m2 CHARAN ([facility]) Systolic blood pressure 111 mm[Hg] 111 mm[Hg] A THENA ([facility]) Body weight 2344 [oz_av] 2344 [oz_av] CHARAN ([facility]) Diastolic blood pressure 81 mm[Hg] 81 mm[Hg] CHARAN ([facility]) Body height 62 [in_i] 62 [in_i] CHARAN ([facility]) Body mass index (BMI) [Ratio] 26.8 kg/m2 26.8 k g/m2 CHARAN ([facility]) Systolic blood pressure 111 mm[Hg] 111 mm[Hg] [facility] Body weight 2344 [oz_av] 2344 [oz_av] CHARAN ([facility]) Diastolic blood pressure 81 mm[Hg] 81 mm[Hg] CHARAN ([facility]) Body height 62 [in_i] 62 [in_i] CHARAN ([facility]) Body mass index (BMI) [Ratio] 26.8 kg/m2 26.8 k g/m2 CHARAN ([facility]) Systolic blood pressure 111 mm[Hg] 111 mm[Hg] [facility] Body weight 2344 [oz_av] 2344 [oz_av] CHARAN ([facility]) Diastolic blood pressure 82 mm[Hg] 82 mm[Hg] CHARAN ([facility]) Body height 62 [in_i] 62 [in_i] CHARAN ([facility]) Body mass index (BMI) [Ratio] 26.4 kg/m2 26.4 k g/m2 CHARAN ([facility]) Systolic blood pressure 118 mm[Hg] 118 mm[Hg] A [facility] ([facility]) Body weight 2312 [oz_av] 2312 [oz_av] CHARAN ([facility]) Body mass index (BMI) [Ratio] 26.4 kg/m2 26.4 k g/m2 CHARAN ([facility]) Body weight 2312 [oz_av] 2312 [oz_av] CHARAN ([facility]) Body height 62 [in_i] 62 [in_i] CHARAN ([facility]) Systolic blood pressure 118 mm[Hg] 118 mm[Hg] [facility] Diastolic blood pressure 82 mm[Hg] 82 mm[Hg] CHARAN ([facility]) Diastolic blood pressure 82 mm[Hg] 82 mm[Hg] CHARAN ([facility]) Body height 62 [in_i] 62 [in_i] CHARAN ([facility]) Systolic blood pressure 118 mm[Hg] 118 mm[Hg] [facility] Body weight 2312 [oz_av] 2312 [oz_av] CHARAN ([facility]) Body mass index (BMI) [Ratio] 26.4 kg/m2 26.4 k g/m2 CHARAN ([facility]) Diastolic blood pressure 82 mm[Hg] 82 mm[Hg] CHARAN ([facility]) Body height 62 [in_i] 62 [in_i] CHARAN ([facility]) Body mass index (BMI) [Ratio] 26.4 kg/m2 26.4 k g/m2 CHARAN ([facility]) Systolic blood pressure 118 mm[Hg] 118 mm[Hg] [facility] Body weight 2312 [oz_av] 2312 [oz_av] CHARAN ([facility]) Diastolic blood pressure 82 mm[Hg] 82 mm[Hg] CHARAN ([facility]) Body height 62 [in_i] 62 [in_i] CHARAN ([facility]) Body mass index (BMI) [Ratio] 26.4 kg/m2 26.4 k g/m2 CHARAN ([facility]) Systolic blood pressure 118 mm[Hg] 118 mm[Hg] [facility] Body weight 2312 [oz_av] 2312 [oz_av] CHARAN ([facility]) Diastolic blood pressure 82 mm[Hg] 82 mm[Hg] CHARAN ([facility]) Body height 62 [in_i] 62 [in_i] CHARAN ([facility]) Body mass index (BMI) [Ratio] 26.4 kg/m2 26.4 k g/m2 CHARAN ([facility]) Systolic blood pressure 118 mm[Hg] 118 mm[Hg] A THENA ([facility]) Body weight 2312 [oz_av] 2312 [oz_av] CHARAN ([facility]) Diastolic blood pressure 82 mm[Hg] 82 mm[Hg] CHARAN ([facility]) Body height 62 [in_i] 62 [in_i] CHARAN ([facility]) Body mass index (BMI) [Ratio] 26.4 kg/m2 26.4 k g/m2 CHARAN ([facility]) Systolic blood pressure 118 mm[Hg] 118 mm[Hg] [facility] Body weight 2312 [oz_av] 2312 [oz_av] CHARAN ([facility]) Diastolic blood pressure 82 mm[Hg] 82 mm[Hg] CHARAN ([facility]) Body height 62 [in_i] 62 [in_i] CHARAN ([facility]) Body mass index (BMI) [Ratio] 26.4 kg/m2 26.4 k g/m2 CHARAN ([facility]) Systolic blood pressure 118 mm[Hg] 118 mm[Hg] A THENA ([facility]) Body weight 2312 [oz_av] 2312 [oz_av] CHARAN ([facility]) Systolic blood pressure 114 mm[Hg] 114 mm[Hg] [facility] Diastolic blood pressure 82 mm[Hg] 82 mm[Hg] [facility] Heart rate 112 /min 112 /min [facility] Respiratory rate 8 /min 8 /min [facility] Body height 157.5 cm 157.5 cm [facility] Body weight 68.493 kg 68.493 kg [facility] Body mass index (BMI) [Ratio] 27.62 kg/m2 27.62 kg/m2 [facility] Oxygen saturation in Arterial blood by Pulse oximetry 96 % 96 % [facility] Body weight 147.12 [lb_av] 147.12 [lb_av] eCW1 ([facility]) Body height 53 [in_i] 53 [in_i] eCW1 ([facility]) Body mass index (BMI) [Ratio] 36.82 kg/m2 36.82 kg/m2 [facility] ([facility]) Heart rate 120 /min 120 /min W1 ([facility]) Respiratory rate 18 /min 18 /min [facility] ([facility]) Body temperature 97.3 [degF] 97.3 [degF] [facility] ( [facility]) Systolic blood pressure 122 mm[Hg] 122 mm[Hg] e CW1 ([facility]) Diastolic blood pressure 80 mm[Hg] 80 mm[Hg] eCW1 ([facility]) Body weight 152 [lb_av] 152 [lb_av] eCW1 ([facility]) Body height 53 [in_i] 53 [in_i] eCW1 ([facility]) Body mass index (BMI) [Ratio] 38.04 kg/m2 38.04 kg/m2 eCW1 ([facility]) Heart rate 110 /min 110 /min eCW1 ([facility]) Respiratory rate 18 /min 18 /min eCW1 ([facility]) Body temperature 99.1 [degF] 99.1 [degF] eCW1 ( [facility]) Systolic blood pressure 154 mm[Hg] 154 mm[Hg] e CW1 ([facility]) Diastolic blood pressure 102 mm[Hg] 102 mm[Hg] eCW1 ([facility]) Body weight 150 [lb_av] 150 [lb_av] eCW1 ([facility]) Body height 53 [in_i] 53 [in_i] eCW1 ([facility]) Body mass index (BMI) [Ratio] 37.54 kg/m2 37.54 kg/m2 eCW1 ([facility]) Heart rate 122 /min 122 /min eCW1 ([facility]) Respiratory rate 18 /min 18 /min eCW1 ([facility]) Body temperature 98.6 [degF] 98.6 [degF] eCW1 ( [facility]) Systolic blood pressure 120 mm[Hg] 120 mm[Hg] e CW1 ([facility]) Diastolic blood pressure 62 mm[Hg] 62 mm[Hg] eCW1 ([facility]) Body weight 149 [lb_av] 149 [lb_av] eCW1 ([facility]) Body height 53 [in_i] 53 [in_i] eCW1 ([facility]) Body mass index (BMI) [Ratio] 37.29 kg/m2 37.29 kg/m2 eCW1 ([facility]) Heart rate 136 /min 136 /min eCW1 ([facility]) Respiratory rate 18 /min 18 /min eCW1 ([facility]) Body temperature 98.2 [degF] 98.2 [degF] eCW1 ( [facility]) Systolic blood pressure 120 mm[Hg] 120 mm[Hg] e CW1 ([facility]) Diastolic blood pressure 80 mm[Hg] 80 mm[Hg] eCW1 ([facility]) ID Date Data Source [id number] 05/06/2020 10:07:12 AM EST [facility] Name Value Range Interpretation Code Description Data Source(s) WEIGHT RECORDED 59 KG 59 KG [facility] WEIGHT RECORDED 59.8 KG 59.8 KG [facility] WEIGHT RECORDED 89.2 KG 89.2 KG [facility] WEIGHT RECORDED 61.1 KG 61.1 KG [facility] WEIGHT RECORDED 62 KG 62 KG [facility] WEIGHT RECORDED 64.9 KG 64.9 KG [facility] WEIGHT RECORDED 60.1 KG 60.1 KG [facility] Height 158.5 CM 158.5 CM [facility] WEIGHT RECORDED 58.9 KG 58.9 KG [facility] Height 170.18 CM 170.18 CM [facility] Patient Treatment Plan of Care Planned Activity Planned Date Details Description Data Source (s) Acetaminophen 500 MG Oral Tablet 11/11/2020 12:00:00 AM EDT [facility] Cyclobenzaprine hydrochloride 10 MG Oral Tablet 11/11/2020 12:00:00 AM EDT [facility] apixaban 5 MG Oral Tablet [Eliquis] 11/11/2020 12:00:00 AM EDT [facility] gabapentin 300 MG Oral Capsule 11/11/2020 12:00:00 AM EDT [facility] celecoxib 200 MG Oral Capsule 09/30/2020 12:00:00 AM EDT [facility] Trazodone Hydrochloride 50 MG Oral Tablet 05/16/2020 12:00:00 AM ES T eCW1 ([facility]) Epclusa 400-100 MG 04/22/2020 12:00:00 AM EST eCW1 ([facility]) Acetaminophen 500 MG Oral Tablet 04/22/2020 12:00:00 AM EST eCW1 ([facility]) Trazodone Hydrochloride 50 MG Oral Tablet CHARAN ([facility]) Buprenorphine 8 MG / Naloxone 2 MG Oral Strip [Suboxone] CHARAN ([facility]) sofosbuvir 400 mg-velpatasvir 100 mg tablet TAKE ONE T ABLET BY MOUTH EVERY DAY CHARAN ([facility]) apixaban 5 MG Oral Tablet [Eliquis] CHARAN ([facility]) celecoxib 200 MG Oral Capsule CHARAN ([facility]) Trazodone Hydrochloride 50 MG Oral Tablet CHARAN ([facility]) Buprenorphine 8 MG / Naloxone 2 MG Oral Strip [Suboxone] CHARAN ([facility]) sofosbuvir 400 mg-velpatasvir 100 mg tablet TAKE ONE T ABLET BY MOUTH EVERY DAY CHARAN ([facility]) apixaban 5 MG Oral Tablet [Eliquis] CHARAN ([facility]) celecoxib 200 MG Oral Capsule CHARAN ([facility]) Trazodone Hydrochloride 50 MG Oral Tablet CHARAN ([facility]) Buprenorphine 8 MG / Naloxone 2 MG Oral Strip [Suboxone] CHARAN ([facility]) sofosbuvir 400 mg-velpatasvir 100 mg tablet TAKE ONE T ABLET BY MOUTH EVERY DAY CHARAN ([facility]) apixaban 5 MG Oral Tablet [Eliquis] CHARAN ([facility]) celecoxib 200 MG Oral Capsule CHARAN ([facility]) Trazodone Hydrochloride 50 MG Oral Tablet CHARAN ([facility]) Buprenorphine 8 MG / Naloxone 2 MG Oral Strip [Suboxone] CHARAN ([facility]) sofosbuvir 400 mg-velpatasvir 100 mg tablet TAKE ONE T ABLET BY MOUTH EVERY DAY CHARAN ([facility]) apixaban 5 MG Oral Tablet [Eliquis] CHARAN ([facility]) celecoxib 200 MG Oral Capsule CHARAN ([facility]) Trazodone Hydrochloride 50 MG Oral Tablet CHARAN ([facility]) sofosbuvir 400 mg-velpatasvir 100 mg tablet TAKE ONE T ABLET BY MOUTH EVERY DAY CHARAN ([facility]) apixaban 5 MG Oral Tablet [Eliquis] CHARAN ([facility]) celecoxib 200 MG Oral Capsule CHARAN ([facility]) Trazodone Hydrochloride 50 MG Oral Tablet CHARAN ([facility]) sofosbuvir 400 mg-velpatasvir 100 mg tablet TAKE ONE T ABLET BY MOUTH EVERY DAY CHARAN ([facility]) apixaban 5 MG Oral Tablet [Eliquis] CHARAN ([facility]) celecoxib 200 MG Oral Capsule CHARAN ([facility]) Trazodone Hydrochloride 50 MG Oral Tablet CHARAN ([facility]) celecoxib 200 MG Oral Capsule CHARAN ([facility]) Trazodone Hydrochloride 50 MG Oral Tablet CHARAN ([facility]) celecoxib 200 MG Oral Capsule CHARAN ([facility])
[2021-01-23 00:43] VITALS: BP 126/72
--- OUTSIDE RECORDS SUMMARY | 2021-01-23 01:02 | CCD ---
Author Organization Unknown Address [address] [place] [address] Phone [phone] Care Team Providers Care Aerial Photograph Interpreter Name Role Phone Tyrone Cross Unavailable Unavailable [...] [facility] (Lab): [address], [place] 12/15/2020 Drug of Abuse Panel, Urine No observation recorded. [facility] (Lab): [address], [place] 12/08/2020 Drug of Abuse Panel, Urine No observation recorded. [facility] (Lab): [address], [place] 12/01/2020 Drug of Abuse Panel, Urine No observation recorded. [facility] (Lab): [address], [place] 11/24/2020 Drug of Abuse Panel, Urine No observation recorded. [facility] (Lab): [address], [place] Past Encounters 01/06/2021 Body Mass Index 25-29 - Overweight; Opioid Dependence in Remission Tyrone Cross MD: [address] [place] [address], Ph. 01/01/2021 Opioid Dependence in Remission Tyrone Cross MD: [address] [place] [address], Ph. 12/31/2020 Tyrone Cross MD: [address] [place] [address], Ph. 12/30/2020 Body Mass Index 25-29 - Overweight; Opioid Dependence in Remission Tyrone Cross MD: [address] [place] [address], Ph. 12/22/2020 Opioid Dependence in Remission Tyrone Cross MD: [address] [place] [address], Ph. 12/15/2020 Opioid Dependence in Remission Tyrone Cross MD: [address] [place] [address], Ph. 12/08/2020 Opioid Dependence in Remission; Gastric Ulcer; Superficial Acne Vulgaris Tyrone Cross MD: [address] [place] [address], Ph. 12/01/2020 Opioid Dependence in Remission Tyrone Cross MD: [address] [place] [address], Ph. 11/24/2020 Opioid Dependence in Remission Tyrone Cross MD: [address] [place] [address], Ph. 10/24/2020 Tyrone Cross MD: [address] [place] [address], Ph. Social History Tobacco Smoking Status Never Smoker Vaccine List None recorded. Plan of Care Reminders Provider Appointments None recorded. Lab None recorded. Referral None recorded. Procedures None recorded. Surgeries None recorded. Imaging None recorded. Vitals 01/06/2021 01:20PM MAT Height Weight BMI Blood Pressure 62 in 151 lbs 16 oz 27.8 kg/m2 131/83 mm[Hg] 12/30/2020 03:20PM MAT Height Weight BMI Blood Pressure 62 in 150 lbs 4 oz 27.5 kg/m2 112/82 mm[Hg] 12/22/2020 03:20PM MAT Height Weight BMI Blood Pressure 62 in 152 lbs 8 oz 27.9 kg/m2 107/70 mm[Hg] 12/15/2020 01:40PM MAT Height Weight BMI Blood Pressure 62 in 152 lbs 8 oz 27.9 kg/m2 127/87 mm[Hg] 12/08/2020 04:20PM ESTABLISHED [id number] Height Weight BMI Blood Pressure 62 in 153 lbs 2 oz 28 kg/m2 (1) 154/104 mm [Hg] (2) 122/86 mm[Hg] 12/01/2020 01:40PM MAT Height Weight BMI Blood Pressure 62 in 146 lbs 8 oz 26.8 kg/m2 111/81 mm[Hg] 11/24/2020 02:20PM MAT Height Weight BMI Blood Pressure 62 in 144 lbs 8 oz 26.4 kg/m2 118/82 mm[Hg]
--- OUTSIDE RECORDS SUMMARY | 2021-01-23 01:06 | CCD ---
Author Author [facility] Organization [facility] Address Unknown Phone Unavailable Care Team Providers Care Synchro Assembler Name Role Phone Brian Cross MD Unavailable [...] Cross MD Unavailable Unavailable CAGE, L ELLIE AMMONIA WORKER Unavailable Unavailable CAGE, L ELLIE AMMONIA WORKER Unavailable Unavailable CAGE, L ELLIE AMMONIA WORKER Unavailable Unavailable CAGE, L ELLIE AMMONIA WORKER Unavailable Unavailable CAGE, L ELLIE AMMONIA WORKER Unavailable Unavailable CAGE, L ELLIE AMMONIA WORKER Unavailable Unavailable CAGE, L ELLIE AMMONIA WORKER Unavailable Unavailable NILES L ELLIE AMMONIA WORKER Unavailable Unavailable Yanet Frey MD Unavailable Unavailable Yanet Frey MD Unavailable Unavailable Yanet Frey MD Unavailable Unavailable Yanet Frey MD Unavailable Unavailable Yante Frey MD Unavailable Unavailable Yanet Frey MD [...] Unavailable Unavailable DOUG PEREZ MD Unavailable Unavailable DUOG PEREZ MD Unavailable Unavailable DOUG PEREZ MD Unavailable Unavailable JOSE U MILTONJAYME RONDON Unavailable Unavailable GABRIELAUN U MILTONJAYME RONDON Unavailable Unavailable HUMYOSELINUN U MILTONJAYME RONDON Unavailable Unavailable GABRIELAUN U MILTONJAYME RONDON Unavailable Unavailable CAMELIAAYUN U MILTONJAYME RONDON Unavailable Unavailable GABRIELAUN U MILTONJAYME RONDON Unavailable Unavailable HUMAYUN U MILTONJAYME RONDON Unavailable Unavailable HUMAYUN U MILTONJAYME RONDON Unavailable Unavailable HUMAYUN U MITLONJAYME RONDON Unavailable Unavailable HUMAYUN U MILTONJAYME RONDON [...] Unavailable Unavailable Marcelo Martins MD Unavailable Unavailable Hamad, Efrem MD Unavailable [...] Unavailable EDILMA MAIN MD Unavailable Unavailable EDILMA MIAN MD Unavailable Unavailable EDILMA MAIN MD Unavailable [...] is protected by Article 27-F of the [facility] Public Health law. If you continue you may have access to information: Regarding HIV / AIDS; Provided by facilities licensed or operated by the [facility] Office of Mental Health; or Provided by the [facility] Office for People With Developmental Disabilities. If such information is present, then the following [facility] mandated warning applies: This information has [...] law may result in a fine or snf sentence or both. A general authorization for the release of medical or other information is NOT sufficient authorization for further disc losure. Allergies and Adverse Reactions Type Description Substance Reaction Status Data Source(s ) Propensity to adverse reactions NO ALLERGIES ON FILE NO ALLERGIES ON FILE [facility] Drug allergy No Known Drug Allergies No Known Drug Allergies [facility] Allergy to substance Allergy to substance Allergy to substance [place] ([facility]) Encounters Encounter Providers Location Date Indications Data Source(s ) Tyrone Cross MD: [address] [place] [address], Ph. Attender: Tyrone Cross MD [facility] Medical 01/06/2021 12:00:00 AM EDT CHARAN ([facility]) Tyrone Cross MD: [address] [place] [address], Ph. Attender: Tyrone Cross MD [facility] Medical 01/01/2021 12:00:00 AM EDT CHARAN ([facility]) Tyrone Cross MD: [address] [place] [address], Ph. Attender: Tyrone Cross MD [facility] Medical 01/01/2021 12:00:00 AM EDT CHARAN ([facility]) Tyrone Cross MD: [address] [place] [address], Ph. Attender: Tyrone Cross MD [facility] Medical 01/01/2021 12:00:00 AM EDT CHARAN ([facility]) Tyrone Cross MD: [address] [place] [address], Ph. Attender: Tyrone Cross MD [facility] Medical 12/31/2020 12:00:00 AM EDT CHARAN ([facility]) Tyrone Cross MD: [address] [place] [address], Ph. Attender: Tyrone Cross MD [facility] Medical 12/31/2020 12:00:00 AM EDT CHARAN ([facility]) Tyrone Cross MD: [address] [place] [address], Ph. Attender: Tyrone Cross MD [facility] Medical 12/31/2020 12:00:00 AM EDT CHARAN ([facility]) Tyrone Cross MD: [address] [place] [address], Ph. Attender: Tyrone Cross MD [facility] Medical 12/30/2020 12:00:00 AM EDT CHARAN ([facility]) Tyrone Cross MD: [address] [place] [address], Ph. Attender: Tyrone Cross MD [facility] Medical 12/30/2020 12:00:00 AM EDT CHARAN ([facility]) Tyrone Cross MD: [address] [place] [address], Ph. Attender: Tyrone Cross MD [facility] Medical 12/30/2020 12:00:00 AM EDT CHARAN ([facility]) Tyrone Cross MD: [address] [place] [address], Ph. Attender: Tyrone Cross MD [facility] Medical 12/30/2020 12:00:00 AM EDT CHARAN ([facility]) Unknown [address] [place] [phone] 12/23/2020 12:00:00 AM EDT eCW1 ([facility]) Tyrone Cross MD: [address] [place] [address], Ph. Attender: Tyrone Cross MD [facility] Medical 12/22/2020 12:00:00 AM EDT CHARAN ([facility]) Tyrone Cross MD: [address] [place] [address], Ph. Attender: Tyrone Cross MD [facility] Medical 12/22/2020 12:00:00 AM EDT CHARAN ([facility]) Tyrone Cross MD: [address] [place] [address], Ph. Attender: Tyrone Cross MD [facility] Medical 12/22/2020 12:00:00 AM EDT CHARAN ([facility]) Tyrone Cross MD: [address] [place] [address], Ph. Attender: Tyrone Cross MD [facility] Medical 12/22/2020 12:00:00 AM EDT CHARAN ([facility]) Tyrone Cross MD: [address] [place] [address], Ph. Attender: Tyrone Cross MD [facility] Medical 12/22/2020 12:00:00 AM EDT CHARAN ([facility]) Tyrone Cross MD: [address] [place] [address], Ph. Attender: Tyrone Cross MD [facility] Medical 12/15/2020 12:00:00 AM EDT CHARAN ([facility]) Tyrone Cross MD: [address] [place] [address], Ph. Attender: Tyrone Cross MD [facility] Medical 12/15/2020 12:00:00 AM EDT CHARAN ([facility]) Tyrone Cross MD: [address] [place] [address], Ph. Attender: Tyrone Cross MD [facility] Medical 12/15/2020 12:00:00 AM EDT CHARAN ([facility]) Tyrone Cross MD: [address] [place] [address], Ph. Attender: Tyrone Cross MD [facility] Medical 12/15/2020 12:00:00 AM EDT CHARAN ([facility]) Tyrone Cross MD: [address] [place] [address], Ph. Attender: Tyrone Cross MD [facility] Medical 12/15/2020 12:00:00 AM EDT CHARAN ([facility]) Tyrone Cross MD: [address] [place] [address], Ph. Attender: Tyrone Cross MD [facility] Medical 12/15/2020 12:00:00 AM EDT CHARAN ([facility]) [place]patient [address] [facility] [address] 12/09/2020 12:00:00 AM EDT eCW1 ([facility]) Tyrone Cross MD: [address] [place] [address], Ph. Attender: Tyrone Cross MD [facility] Medical 12/08/2020 12:00:00 AM EDT CHARAN ([facility]) Tyrone Cross MD: [address] [place] [address], Ph. Attender: Tyrone Cross MD [facility] Medical 12/08/2020 12:00:00 AM EDT CHARAN ([facility]) Tyrone Cross MD: [address] [place] [address], Ph. Attender: Tyrone Cross MD [facility] Medical 12/08/2020 12:00:00 AM EDT CHARAN ([facility]) Tyrone Cross MD: [address] [place] [address], Ph. Attender: Tyrone Cross MD [facility] Medical 12/08/2020 12:00:00 AM EDT CHARAN ([facility]) Tyrone Cross MD: [address] [place] [address], Ph. Attender: Tyrone Cross MD [facility] Medical 12/08/2020 12:00:00 AM EDT CHARAN ([facility]) Tyrone Cross MD: [address] [place] [address], Ph. Attender: Tyrone Cross MD [facility] Medical 12/08/2020 12:00:00 AM EDT CHARAN ([facility]) Tyrone Cross MD: [address] [place] [address], Ph. Attender: Tyrone Cross MD [facility] Medical 12/08/2020 12:00:00 AM EDT CHARAN ([facility]) Tyrone Cross MD: [address] [place] [address], Ph. Attender: Tyrone Cross MD [facility] Medical 12/01/2020 12:00:00 AM EDT CHARAN ([facility]) Tyrone Cross MD: [address] [place] [address], Ph. Attender: Tyrone Cross MD [facility] Medical 12/01/2020 12:00:00 AM EDT CHARAN ([facility]) Tyrone Cross MD: [address] [place] [address], Ph. Attender: Tyrone Cross MD [facility] Medical 12/01/2020 12:00:00 AM EDT CHARAN ([facility]) Tyrone Cross MD: [address] [place] [address], Ph. Attender: Tyrone Cross MD [facility] Medical 12/01/2020 12:00:00 AM EDT CHARAN ([facility]) Tyrone Cross MD: [address] [place] [address], Ph. Attender: Tyrone Cross MD [facility] Medical 12/01/2020 12:00:00 AM EDT CHARAN ([facility]) Tyrone Cross MD: [address] [place] [address], Ph. Attender: Tyrone Cross MD [facility] Medical 12/01/2020 12:00:00 AM EDT CHARAN ([facility]) Tyrone Cross MD: [address] [place] [address], Ph. Attender: Tyrone Cross MD [facility] Medical 12/01/2020 12:00:00 AM EDT CHARAN ([facility]) Tyrone Cross MD: [address] [place] [address], Ph. Attender: Tyrone Cross MD [facility] Medical 12/01/2020 12:00:00 AM EDT CHARAN ([facility]) Unknown [address] [place] [phone] 11/25/2020 12:00:00 AM EDT eCW1 ([facility]) Tyrone Cross MD: [address] [place] [address], Ph. Attender: Tyrone Cross MD [facility] Medical 11/24/2020 12:00:00 AM EDT CHARAN ([facility]) Tyrone Cross MD: [address] [place] [address], Ph. Attender: Tyrone Cross MD [facility] Medical 11/24/2020 12:00:00 AM EDT CHARAN ([facility]) Tyrone Cross MD: [address] [place] [address], Ph. Attender: Tyrone Cross MD [facility] Medical 11/24/2020 12:00:00 AM EDT CHARAN ([facility]) Tyrone Cross MD: [address] [place] [address], Ph. Attender: Tyrone Cross MD [facility] Medical 11/24/2020 12:00:00 AM EDT CHARAN ([facility]) Tyrone Cross MD: [address] [place] [address], Ph. Attender: Tyrone Cross MD [facility] Medical 11/24/2020 12:00:00 AM EDT CHARAN ([facility]) Tyrone Cross MD: [address] [place] [address], Ph. Attender: Tyrone Cross MD [facility] Medical 11/24/2020 12:00:00 AM EDT CHARAN ([facility]) Tyrone Cross MD: [address] [place] [address], Ph. Attender: Tyrone Cross MD [facility] Medical 11/24/2020 12:00:00 AM EDT CHARAN ([facility]) Tyrone Cross MD: [address] [place] [address], Ph. Attender: Tyrone Cross MD [facility] Medical 11/24/2020 12:00:00 AM EDT CHARAN ([facility]) Outpatient Attender: Peter Guo MDReferrer: Emma Frey MD [email or web address] 11/18/2020 12:00:00 AM EDT - 11/18/2020 04:21:42 PM EDT [facility] Unknown [address] [facility] [address] 10/28/2020 12:00:00 AM EDT eCW1 ([facility]) Tyrone Cross MD: [address] [place] [address], Ph. Attender: Tyrone Cross MD [facility] Medical 10/24/2020 12:00:00 AM EDT CHARAN ([facility]) Tyrone Cross MD: [address] [place] [address], Ph. Attender: Tyrone Cross MD [facility] Medical 10/24/2020 12:00:00 AM EDT CHARAN ([facility]) Tyrone Cross MD: [address] [place] [address], Ph. Attender: Tyrone Cross MD [facility] Medical 10/24/2020 12:00:00 AM EDT CHARAN ([facility]) Tyrone Cross MD: [address] [place] [address], Ph. Attender: Tyrone Cross MD [facility] Medical 10/24/2020 12:00:00 AM EDT CHARAN ([facility]) Tyrone Cross MD: [address] [place] [address], Ph. Attender: Tyrone Cross MD [facility] Medical 10/24/2020 12:00:00 AM EDT CHARAN ([facility]) Tyrone Cross MD: [address] [place] [address], Ph. Attender: Tryone Cross MD [facility] Medical 10/24/2020 12:00:00 AM EDT CHARAN ([facility]) Tyrone Cross MD: [address] [place] [address], Ph. Attender: Tyrone Cross MD [facility] Medical 10/24/2020 12:00:00 AM EDT CHARAN ([facility]) Tyrone Cross MD: [address] [place] [address], Ph. Attender: Tyrone Cross MD [facility] Medical 10/24/2020 12:00:00 AM EDT CHARAN ([facility]) Tyrone Cross MD: [address] [place] [address], Ph. Attender: Tyrone Cross MD [place] [facility] Medical 10/24/2020 12:00:00 AM EDT CHARAN ([facility]) Unknown [address] [facility] [place] [address] 10/09/2020 12:00:00 AM EDT eCW1 ([facility]) Unknown [address] [facility] [place] [address] 09/29/2020 12:00:00 AM EDT eCW1 ([facility]) Unknown [address] [facility] [place] [address] 09/26/2020 12:00:00 AM EDT eCW1 ([facility]) Unknown [address] [facility] [place] [address] 08/25/2020 12:00:00 AM EDT eCW1 ([facility]) Unknown [address] [facility] [place] [address] 08/25/2020 12:00:00 AM EDT eCW1 ([facility]) Outpatient [address] [facility] [place] [address] 08/12/2020 12:00:00 AM EDT eCW1 ([facility]) Unknown [address] [facility] [place] [address] 08/07/2020 12:00:00 AM EDT eCW1 ([facility]) Unknown [address] [facility] [place] [address] 08/05/2020 12:00:00 AM EDT eCW1 ([facility]) Unknown [address] [facility] [place] [address] 08/05/2020 12:00:00 AM EDT eCW1 ([facility]) Outpatient [address] [facility] [place] [address] 08/04/2020 12:00:00 AM EDT eCW1 ([facility]) [place] [address] [facility] [address] 07/01/2020 12:00:00 AM EDT eCW1 ([facility]) [place] [address] [facility] [place] [address] 06/24/2020 12:00:00 AM EDT eCW1 ([facility]) [place] [address] [facility] [address] 05/20/2020 12:00:00 AM EST eCW1 ([facility]) [place] [address] [facility] [place] [address] 05/16/2020 12:00:00 AM EST eCW1 ([facility]) [place] [address] [facility] [place] [address] 05/07/2020 12:00:00 AM EST eCW1 ([facility]) [place] [address] [facility] [place] [address] 04/25/2020 12:00:00 AM EST eCW1 ([facility]) [place] [address] [facility] [place] [address] 04/22/2020 12:00:00 AM EST eCW1 ([facility]) OUTPATIENT 04/18/2020 01:29:31 PM [facility] Attender: YAMILEX MORFIN MD 04/18/2020 12:38:23 PM [facility] OUTPATIENT 04/16/2020 03:44:47 PM [facility] SPECIMEN Attender: JEFF FULLEReferrer: JEFF ECHAVARRIA DO 2E-S52 04/16/2020 01:00:00 AM EST - 04/16/2020 11:59:00 PM [facility] Patient discharged. OUTPATIENT Attender: YAMILEX MORFIN MD 04/14/2020 05:12:06 PM [facility] Outpatient Attender: ELLIE FAIReferrer: ELLIE ALVAREZ AMMONIA WORKER 2E-HL 04/14/2020 05:29:00 AM EST - 04/14/2020 11:59:00 PM [facility] Patient discharged. SPECIMEN Attender: JEFF FULLEReferrer: JEFF FARIHA ECHAVARRIA DO 2E-S52 04/09/2020 11:00:00 PM EST - 04/09/2020 11:59:00 PM [facility] Patient discharged. Outpatient Attender: ELLIE CAGE NPReferrer: ELLIE ALVAREZ NP 2E-HL 04/09/2020 05:36:00 AM EST - 04/09/2020 10:59:00 PM [facility] Patient discharged. Outpatient Attender: ELLIE CAGE NPReferrer: ELLIE ALVAREZ NP 2E-HL 04/02/2020 05:50:00 PM [facility] - 04/02/2020 11:59:00 PM [facility] Patient discharged. SPECIMEN Attender: JEFF FULLEReferrer: JEFF FARIHA ECHAVARRIA DO 2E-S52 04/02/2020 01:00:00 AM [facility] - 04/02/2020 05:49:00 PM [facility] Patient discharged. OUTPATIENT Attender: YAMILEX MORFIN MDReferrer: YAMILEX Lopez MD 04/01/2020 08:28:34 AM [facility] - 04/01/2020 01:01:06 PM [facility] Attender: YAMILEX MORFIN MD 03/27/2020 09:31:39 AM [facility] SPECIMEN Attender: JEFF YOUNG DOReferrer: JEFF ECHAVARRIA DO 2E-S52 03/26/2020 11:00:00 PM [facility] - 03/26/2020 11:59:00 PM [facility] Patient discharged. Outpatient Attender: ELLIE CAGE NPReferrer: ELLIE ALVAREZ NP 2E-HL 03/24/2020 06:00:00 AM [facility] - 03/24/2020 11:59:00 PM [facility] Patient discharged. OUTPATIENT 03/20/2020 01:13:44 PM [facility] SPECIMEN Attender: ELLIE CAGE NPReferrer: ELLIE ALVAREZ NP 2E-S53 03/19/2020 05:43:00 AM EST - 03/19/2020 11:59:00 PM [facility] Patient discharged. OUTPATIENT Attender: YAMILEX MORFIN MDAttender: EDILMA VASQUEZ MD 03/18/2020 09:18:00 AM EST - 03/18/2020 11:58:17 AM [facility] SPECIMEN Attender: JEFF YOUNG DOReferrer: JEFFCHENG ECHAVARRIA DO 2E-S53 03/12/2020 06:08:00 PM EST - 03/12/2020 11:59:00 PM [facility] Patient discharged. Outpatient Attender: ELLIE CAGE NPReferrer: ELLIE ALVAREZ NP 2E-HL 03/12/2020 06:16:00 AM EST - 03/12/2020 06:07:00 PM [facility] Patient discharged. SPECIMEN Attender: JEFF YOUNG DOReferrer: JEFF ECHAVARRIA DO 2E-S53 03/05/2020 05:15:00 AM EST - 03/05/2020 11:59:00 PM [facility] Patient discharged. Inpatient Attender: Marcelo flores MDAttender: ANDREW OROZCO MDAttender: MILTON GARCIA MDAttender: Efrem Boudreaux MDAttender: MD ALPHONSO DELGADO MDAttender: Bhavik Carney MDAttender: NONE NONE MDAdmitter: MD ALPHONSO DELGADO MDConsultant: PILO RAM MDConsultant: DOUG PEREZ MDConsultant: MD ALPHONSO DELGADO MD OP-2E 02/13/2020 08:11:00 PM EST - 02/27/2020 05:00:00 PM [facility] Patient discharged. SPECIMEN Attender: ELLIE CAGE NPReferrer: ELLIE ALVAREZ NP 2E-S53 02/12/2020 10:41:00 AM EST - 02/12/2020 11:59:00 PM [facility] Patient discharged. Immunizations Vaccine Date Status Description Data Source(s) Hep A, adult 08/04/2020 11:33:00 AM EDT completed e CW1 ([facility]) Hep A, adult 08/04/2020 11:33:00 AM EDT completed e CW1 ([facility]) Hep A, adult 08/04/2020 11:33:00 AM EDT completed e CW1 ([facility]) Hep A, adult 08/04/2020 11:33:00 AM EDT completed e CW1 ([facility]) Hep A, adult 08/04/2020 11:33:00 AM EDT completed e CW1 ([facility]) Hep A, adult 08/04/2020 11:33:00 AM EDT completed e CW1 ([facility]) Hep A, adult 08/04/2020 11:33:00 AM EDT completed e CW1 ([facility]) Hep A, adult 08/04/2020 11:33:00 AM EDT completed e CW1 ([facility]) Hep A, adult 08/04/2020 11:33:00 AM EDT completed e CW1 ([facility]) Hep A, adult 08/04/2020 11:33:00 AM EDT completed e CW1 ([facility]) Hep A, adult 08/04/2020 11:33:00 AM EDT completed e CW1 ([facility]) Hep A, adult 08/04/2020 11:33:00 AM EDT completed e CW1 ([facility]) Hep A, adult 08/04/2020 11:33:00 AM EDT completed e CW1 ([facility]) Hep A, adult 08/04/2020 11:33:00 AM EDT completed e CW1 ([facility]) As of November 1998, a 2-dose hepatitis B schedule for adolescents (11-15 year olds) was FDA approved for [employer]'s Recombivax HB adult formulation. Use code 43 for the 2-dose. This code should be used for any use of standard adult formulation of hepatitis B vaccine. 02/11/2020 10:15:00 PM EST completed eCW1 ([facility]) As of November 1998, a 2-dose hepatitis B schedule for adolescents (11-15 year olds) was FDA approved for [employer]'s Recombivax HB adult formulation. Use code 43 for the 2-dose. This code should be used for any use of standard adult formulation of hepatitis B vaccine. 02/11/2020 10:15:00 PM EST completed eCW1 ([facility]) As of November 1998, a 2-dose hepatitis B schedule for adolescents (11-15 year olds) was FDA approved for [employer]'s Recombivax HB adult formulation. Use code 43 for the 2-dose. This code should be used for any use of standard adult formulation of hepatitis B vaccine. 02/11/2020 10:15:00 PM EST completed eCW1 ([facility]) As of November 1998, a 2-dose hepatitis B schedule for adolescents (11-15 year olds) was FDA approved for [employer]'s Recombivax HB adult formulation. Use code 43 for the 2-dose. This code should be used for any use of standard adult formulation of hepatitis B vaccine. 02/11/2020 10:15:00 PM EST completed eCW1 ([facility]) As of November 1998, a 2-dose hepatitis B schedule for adolescents (11-15 year olds) was FDA approved for [employer]'s Recombivax HB adult formulation. Use code 43 for the 2-dose. This code should be used for any use of standard adult formulation of hepatitis B vaccine. 02/11/2020 10:15:00 PM EST completed eCW1 ([facility]) As of November 1998, a 2-dose hepatitis B schedule for adolescents (11-15 year olds) was FDA approved for [employer]'s Recombivax HB adult formulation. Use code 43 for the 2-dose. This code should be used for any use of standard adult formulation of hepatitis B vaccine. 02/11/2020 10:15:00 PM EST completed eCW1 ([facility]) As of November 1998, a 2-dose hepatitis B schedule for adolescents (11-15 year olds) was FDA approved for [employer]'s Recombivax HB adult formulation. Use code 43 for the 2-dose. This code should be used for any use of standard adult formulation of hepatitis B vaccine. 02/11/2020 10:15:00 PM EST completed eCW1 ([facility]) As of November 1998, a 2-dose hepatitis B schedule for adolescents (11-15 year olds) was FDA approved for [employer]'s Recombivax HB adult formulation. Use code 43 for the 2-dose. This code should be used for any use of standard adult formulation of hepatitis B vaccine. 02/11/2020 10:15:00 PM EST completed eCW1 ([facility]) As of November 1998, a 2-dose hepatitis B schedule for adolescents (11-15 year olds) was FDA approved for [employer]'s Recombivax HB adult formulation. Use code 43 for the 2-dose. This code should be used for any use of standard adult formulation of hepatitis B vaccine. 02/11/2020 10:15:00 PM EST completed eCW1 ([facility]) As of November 1998, a 2-dose hepatitis B schedule for adolescents (11-15 year olds) was FDA approved for [employer]'s Recombivax HB adult formulation. Use code 43 for the 2-dose. This code should be used for any use of standard adult formulation of hepatitis B vaccine. 02/11/2020 10:15:00 PM EST completed eCW1 ([facility]) As of November 1998, a 2-dose hepatitis B schedule for adolescents (11-15 year olds) was FDA approved for [employer]'s Recombivax HB adult formulation. Use code 43 for the 2-dose. This code should be used for any use of standard adult formulation of hepatitis B vaccine. 02/11/2020 10:15:00 PM EST completed eCW1 ([facility]) As of November 1998, a 2-dose hepatitis B schedule for adolescents (11-15 year olds) was FDA approved for [employer]'s Recombivax HB adult formulation. Use code 43 for the 2-dose. This code should be used for any use of standard adult formulation of hepatitis B vaccine. 02/11/2020 10:15:00 PM EST completed eCW1 ([facility]) As of November 1998, a 2-dose hepatitis B schedule for adolescents (11-15 year olds) was FDA approved for [employer]'s Recombivax HB adult formulation. Use code 43 for the 2-dose. This code should be used for any use of standard adult formulation of hepatitis B vaccine. 02/11/2020 10:15:00 PM EST completed eCW1 ([facility]) As of November 1998, a 2-dose hepatitis B schedule for adolescents (11-15 year olds) was FDA approved for [employer]'s Recombivax HB adult formulation. Use code 43 for the 2-dose. This code should be used for any use of standard adult formulation of hepatitis B vaccine. 02/11/2020 10:15:00 PM EST completed eCW1 ([facility]) As of November 1998, a 2-dose hepatitis B schedule for adolescents (11-15 year olds) was FDA approved for [employer]'s Recombivax HB adult formulation. Use code 43 for the 2-dose. This code should be used for any use of standard adult formulation of hepatitis B vaccine. 02/11/2020 10:15:00 PM EST completed eCW1 ([facility]) As of November 1998, a 2-dose hepatitis B schedule for adolescents (11-15 year olds) was FDA approved for [employer]'s Recombivax HB adult formulation. Use code 43 for the 2-dose. This code should be used for any use of standard adult formulation of hepatitis B vaccine. 02/11/2020 10:15:00 PM EST completed eCW1 ([facility]) As of November 1998, a 2-dose hepatitis B schedule for adolescents (11-15 year olds) was FDA approved for Mer[employer]'s Recombivax HB adult formulation. Use code 43 for the 2-dose. This code should be used for any use of standard adult formulation of hepatitis B vaccine. 02/11/2020 10:15:00 PM EST completed eCW1 ([facility]) As of November 1998, a 2-dose hepatitis B schedule for adolescents (11-15 year olds) was FDA approved for [employer]'s Recombivax HB adult formulation. Use code 43 for the 2-dose. This code should be used for any use of standard adult formulation of hepatitis B vaccine. 02/11/2020 10:15:00 PM EST completed eCW1 ([facility]) As of November 1998, a 2-dose hepatitis B schedule for adolescents (11-15 year olds) was FDA approved for [employer]'s Recombivax HB adult formulation. Use code 43 for the 2-dose. This code should be used for any use of standard adult formulation of hepatitis B vaccine. 02/11/2020 10:15:00 PM EST completed eCW1 ([facility]) As of November 1998, a 2-dose hepatitis B schedule for adolescents (11-15 year olds) was FDA approved for Mer[employer]'s Recombivax HB adult formulation. Use code 43 for the 2-dose. This code should be used for any use of standard adult formulation of hepatitis B vaccine. 02/11/2020 10:15:00 PM EST completed eCW1 ([facility]) Hep A, adult 02/11/2020 10:13:00 PM EST completed e CW1 ([facility]) Hep A, adult 02/11/2020 10:13:00 PM EST completed e CW1 ([facility]) Hep A, adult 02/11/2020 10:13:00 PM EST completed e CW1 ([facility]) Hep A, adult 02/11/2020 10:13:00 PM EST completed e CW1 ([facility]) Hep A, adult 02/11/2020 10:13:00 PM EST completed e CW1 ([facility]) Hep A, adult 02/11/2020 10:13:00 PM EST completed e CW1 ([facility]) Hep A, adult 02/11/2020 10:13:00 PM EST completed e CW1 ([facility]) Hep A, adult 02/11/2020 10:13:00 PM EST completed e CW1 ([facility]) Hep A, adult 02/11/2020 10:13:00 PM EST completed e CW1 ([facility]) Hep A, adult 02/11/2020 10:13:00 PM EST completed e CW1 ([facility]) Hep A, adult 02/11/2020 10:13:00 PM EST completed e CW1 ([facility]) Hep A, adult 02/11/2020 10:13:00 PM EST completed e CW1 ([facility]) Hep A, adult 02/11/2020 10:13:00 PM EST completed e CW1 ([facility]) Hep A, adult 02/11/2020 10:13:00 PM EST completed e CW1 ([facility]) Hep A, adult 02/11/2020 10:13:00 PM EST completed e CW1 ([facility]) Hep A, adult 02/11/2020 10:13:00 PM EST completed e CW1 ([facility]) Hep A, adult 02/11/2020 10:13:00 PM EST completed e CW1 ([facility]) Hep A, adult 02/11/2020 10:13:00 PM EST completed e CW1 ([facility]) Hep A, adult 02/11/2020 10:13:00 PM EST completed e CW1 ([facility]) Hep A, adult 02/11/2020 10:13:00 PM EST completed e CW1 ([facility]) Medications Medication Brand Name Start Date Product Form Dose Route Admi nistrative Instructions Pharmacy Instructions Status Indications Reaction Description Data Source(s) gabapentin 300 MG Oral Capsule gabapentin (NEURONTIN) 300 MG capsule gabapentin (NEURONTIN) 300 MG capsule 11/11/2020 12:00:00 AM EDT active TAKE ONE CAPSULE BY MOUTH TWO TIMES A DAY [facility] apixaban 5 MG Oral Tablet [Eliquis] Eliquis 5 MG TABS tablet Eliquis 5 MG TABS tablet 11/11/2020 12:00:00 AM EDT active TAKE ONE TABLET BY MOUTH TWO TIMES A DAY DIRECTED [facility] Cyclobenzaprine hydrochloride 10 MG Oral Tablet cyclobenzaprine (FLEXERIL) 10 MG tablet cyclobenzaprine (FLEXERIL) 10 MG tablet 11/11/2020 12:00:00 AM EDT active TAKE ONE TABLET BY M OUTH TWO TIMES A DAY NEEDED [facility] Acetaminophen 500 MG Oral Tablet Acetaminophen Extra S trength 500 MG tablet Acetaminophen Extra Strength 500 MG tablet 11/11/2020 12:00:00 AM EDT active TAKE TWO TABLETS BY MOUTH EVERY 6 HOURS NEEDED [facility] celecoxib 200 MG Oral Capsule celecoxib (CeleBREX) 200 MG capsule celecoxib (CeleBREX) 200 MG capsule 09/30/2020 12:00:00 AM EDT active TAKE ONE CAPSULE BY MOUTH TWICE A DAY WITH FOOD [facility] 5 mg 08/04/2020 12:00:00 AM EDT tablet [...] {tablet_at_bedtime_as_needed} active TraZODone HCl 50 MG eCW1 ([facility]) Cyclobenzaprine hydrochloride 10 MG Oral Tablet CYCLOBENZAPR [...] {tablet_at_bedtime_as_needed} active TraZODone HCl 50 MG eCW1 ([facility]) 50 mg 05/16/2020 12:00:00 AM EST tablet [...] {tablet_as_needed} active A cetaminophen 500 MG eCW1 ([facility]) Epclusa 400-100 MG Epclusa 400-100 MG 04/22/2020 12:00:00 AM EST 1.0 {tablet} active Epclusa 400-100 MG e CW1 ([facility]) Acetaminophen 500 MG Oral Tablet Acetaminophen 500 MG 2020 12:00:00 AM EST 2.0 {tablet_as_needed} active A cetaminophen 500 MG eCW1 ([facility]) Acetaminophen 500 MG Oral Tablet Acetaminophen 500 MG 2020 12:00:00 AM EST 2.0 {tablet_as_needed} active A cetaminophen 500 MG eCW1 ([facility]) Acetaminophen 500 MG Oral Tablet Acetaminophen 500 MG 2020 12:00:00 AM EST 2.0 {tablet_as_needed} active A cetaminophen 500 MG eCW1 ([facility]) Acetaminophen 500 MG Oral Tablet Acetaminophen 500 MG 2020 12:00:00 AM EST 2.0 {tablet_as_needed} active A cetaminophen 500 MG eCW1 ([facility]) Acetaminophen 500 MG Oral Tablet Acetaminophen 500 MG 2020 12:00:00 AM EST 2.0 {tablet_as_needed} active A cetaminophen 500 MG eCW1 ([facility]) Acetaminophen 500 MG Oral Tablet Acetaminophen 500 MG 2020 12:00:00 AM EST 2.0 {tablet_as_needed} active eCW1 ([facility]) Acetaminophen 500 MG Oral Tablet Acetaminophen 500 MG 2020 12:00:00 AM EST 2.0 {tablet_as_needed} active A cetaminophen 500 MG eCW1 ([facility]) Acetaminophen 500 MG Oral Tablet Acetaminophen 500 MG 2020 12:00:00 AM EST 2.0 {tablet_as_needed} active A cetaminophen 500 MG eCW1 ([facility]) Acetaminophen 500 MG Oral Tablet Acetaminophen 500 MG 2020 12:00:00 AM EST 2.0 {tablet_as_needed} active A cetaminophen 500 MG eCW1 ([facility]) Acetaminophen 500 MG Oral Tablet Acetaminophen 500 MG 2020 12:00:00 AM EST 2.0 {tablet_as_needed} active A cetaminophen 500 MG eCW1 ([facility]) Acetaminophen 500 MG Oral Tablet Acetaminophen 500 MG 2020 12:00:00 AM EST 2.0 {tablet_as_needed} active A cetaminophen 500 MG eCW1 ([facility]) Acetaminophen 500 MG Oral Tablet Acetaminophen 500 MG 2020 12:00:00 AM EST 2.0 {tablet_as_needed} active A cetaminophen 500 MG eCW1 ([facility]) Acetaminophen 500 MG Oral Tablet Acetaminophen 500 MG 2020 12:00:00 AM EST 2.0 {tablet_as_needed} active A cetaminophen 500 MG eCW1 ([facility]) Trazodone Hydrochloride 50 MG Oral Table t trazodone 50 mg tablet TAKE ONE TABLET BY MOUTH EVERY DAY AT BEDTIME NEEDED trazodone 50 mg tablet TAKE ONE TABLET BY MOUTH EVERY DAY AT BEDTIME NEEDED completed trazodone hydrochloride 50 MG Oral Tablet [facility]AN ([facility]) Trazodone Hydrochloride 50 MG Oral Table t trazodone 50 mg tablet TAKE ONE TABLET BY MOUTH EVERY DAY AT BEDTIME NEEDED trazodone 50 mg tablet TAKE ONE TABLET BY MOUTH EVERY DAY AT BEDTIME NEEDED completed trazodone hydrochloride 50 MG Oral Tablet CHARAN ([facility]) Trazodone Hydrochloride 50 MG Oral Table t trazodone 50 mg tablet TAKE ONE TABLET BY MOUTH EVERY DAY AT BEDTIME NEEDED trazodone 50 mg tablet TAKE ONE TABLET BY MOUTH EVERY DAY AT BEDTIME NEEDED completed trazodone hydrochloride 50 MG Oral Tablet CHARAN ([facility]) sofosbuvir 400 mg-velpatasvir 100 mg tablet TAKE ONE T ABLET BY MOUTH EVERY DAY [id number] completed sofosbu vir 400 MG / velpatasvir 100 MG Oral Tablet [facility] ([facility]) celecoxib 200 MG Oral Capsule celecoxib 200 mg capsule TAKE ONE CAPSULE BY MOUTH TWICE A DAY WITH FOOD celecoxib 200 mg capsule TAKE ONE CAPSUL E BY MOUTH TWICE A DAY WITH FOOD completed celeco xib 200 MG Oral Capsule [facility] ([facility]) Trazodone Hydrochloride 50 MG Oral Table t trazodone 50 mg tablet TAKE ONE TABLET BY MOUTH EVERY DAY AT BEDTIME NEEDED trazodone 50 mg tablet TAKE ONE TABLET BY MOUTH EVERY DAY AT BEDTIME NEEDED completed trazodone hydrochloride 50 MG Oral Tablet [place] ([facility]) celecoxib 200 MG Oral Capsule celecoxib 200 mg capsule TAKE ONE CAPSULE BY MOUTH TWICE A DAY WITH FOOD celecoxib 200 mg capsule TAKE ONE CAPSUL E BY MOUTH TWICE A DAY WITH FOOD completed celeco xib 200 MG Oral Capsule [place] ([facility]) apixaban 5 MG Oral Tablet [Eliquis] Eliq uis 5 mg tablet TAKE ONE TABLET BY MOUTH TWO TIMES A DAY DIRECTED Eliquis 5 mg tablet TAKE ONE TABLET BY M OUTH TWO TIMES A DAY DIRECTED completed apixaban 5 MG Oral Tablet [Eliquis] [place] ([facility]) apixaban 5 MG Oral Tablet [Eliquis] Eliq uis 5 mg tablet TAKE ONE TABLET BY MOUTH TWO TIMES A DAY DIRECTED Eliquis 5 mg tablet TAKE ONE TABLET BY M OUTH TWO TIMES A DAY DIRECTED completed apixaban 5 MG Oral Tablet [Eliquis] [place] ([facility]) Buprenorphine 8 MG / Naloxone 2 MG Oral Strip [Suboxone] Suboxone 8 mg-2 mg sublingual film Suboxone 8 mg-2 mg sublingual film completed buprenorphine 8 MG / naloxone 2 MG Sublingual Film [Suboxone] [place] ([facility]) celecoxib 200 MG Oral Capsule celecoxib 200 mg capsule TAKE ONE CAPSULE BY MOUTH TWICE A DAY WITH FOOD celecoxib 200 mg capsule TAKE ONE CAPSUL E BY MOUTH TWICE A DAY WITH FOOD completed celeco xib 200 MG Oral Capsule [place] ([facility]) Buprenorphine 8 MG / Naloxone 2 MG Oral Strip [Suboxone] Suboxone 8 mg-2 mg sublingual film Suboxone 8 mg-2 mg sublingual film completed buprenorphine 8 MG / naloxone 2 MG Sublingual Film [Suboxone] [place] ([facility]) sofosbuvir 400 mg-velpatasvir 100 mg tablet TAKE ONE T ABLET BY MOUTH EVERY DAY [id number] completed sofosbu vir 400 MG / velpatasvir 100 MG Oral Tablet [place] ([facility]) apixaban 5 MG Oral Tablet [Eliquis] Eliq uis 5 mg tablet TAKE ONE TABLET BY MOUTH TWO TIMES A DAY DIRECTED Eliquis 5 mg tablet TAKE ONE TABLET BY M OUTH TWO TIMES A DAY DIRECTED completed apixaban 5 MG Oral Tablet [Eliquis] [place] ([facility]) Buprenorphine 8 MG / Naloxone 2 MG Oral Strip [Suboxone] Suboxone 8 mg-2 mg sublingual film Suboxone 8 mg-2 mg sublingual film completed buprenorphine 8 MG / naloxone 2 MG Sublingual Film [Suboxone] [place] ([facility]) sofosbuvir 400 mg-velpatasvir 100 mg tablet TAKE ONE T ABLET BY MOUTH EVERY DAY [id number] completed sofosbu vir 400 MG / velpatasvir 100 MG Oral Tablet [facility] ([facility]) Trazodone Hydrochloride 50 MG Oral Table t trazodone 50 mg tablet TAKE ONE TABLET BY MOUTH EVERY DAY AT BEDTIME NEEDED trazodone 50 mg tablet TAKE ONE TABLET BY MOUTH EVERY DAY AT BEDTIME NEEDED completed trazodone hydrochloride 50 MG Oral Tablet [place] ([facility]) sofosbuvir 400 mg-velpatasvir 100 mg tablet TAKE ONE T ABLET BY MOUTH EVERY DAY [id number] completed sofosbu vir 400 MG / velpatasvir 100 MG Oral Tablet [place] ([facility]) sofosbuvir 400 mg-velpatasvir 100 mg tablet TAKE ONE T ABLET BY MOUTH EVERY DAY [id number] completed sofosbu vir 400 MG / velpatasvir 100 MG Oral Tablet [place] ([facility]) Buprenorphine 8 MG / Naloxone 2 MG Oral Strip [Suboxone] Suboxone 8 mg-2 mg sublingual film Suboxone 8 mg-2 mg sublingual film completed buprenorphine 8 MG / naloxone 2 MG Sublingual Film [Suboxone] [place] ([facility]) apixaban 5 MG Oral Tablet [Eliquis] Eliq uis 5 mg tablet TAKE ONE TABLET BY MOUTH TWO TIMES A DAY DIRECTED Eliquis 5 mg tablet TAKE ONE TABLET BY M OUTH TWO TIMES A DAY DIRECTED completed apixaban 5 MG Oral Tablet [Eliquis] [place] ([facility]) Trazodone Hydrochloride 50 MG Oral Table t trazodone 50 mg tablet TAKE ONE TABLET BY MOUTH EVERY DAY AT BEDTIME NEEDED trazodone 50 mg tablet TAKE ONE TABLET BY MOUTH EVERY DAY AT BEDTIME NEEDED completed trazodone hydrochloride 50 MG Oral Tablet [facility] ([facility]) apixaban 5 MG Oral Tablet [Eliquis] Eliq uis 5 mg tablet TAKE ONE TABLET BY MOUTH TWO TIMES A DAY DIRECTED Eliquis 5 mg tablet TAKE ONE TABLET BY M OUTH TWO TIMES A DAY DIRECTED completed apixaban 5 MG Oral Tablet [Eliquis] [facility] ([facility]) celecoxib 200 MG Oral Capsule celecoxib 200 mg capsule TAKE ONE CAPSULE BY MOUTH TWICE A DAY WITH FOOD celecoxib 200 mg capsule TAKE ONE CAPSUL E BY MOUTH TWICE A DAY WITH FOOD completed celeco xib 200 MG Oral Capsule [facility] ([facility]) celecoxib 200 MG Oral Capsule celecoxib 200 mg capsule TAKE ONE CAPSULE BY MOUTH TWICE A DAY WITH FOOD celecoxib 200 mg capsule TAKE ONE CAPSUL E BY MOUTH TWICE A DAY WITH FOOD completed celeco xib 200 MG Oral Capsule [place] ([facility]) apixaban 5 MG Oral Tablet [Eliquis] Eliq uis 5 mg tablet TAKE ONE TABLET BY MOUTH TWO TIMES A DAY DIRECTED Eliquis 5 mg tablet TAKE ONE TABLET BY M OUTH TWO TIMES A DAY DIRECTED completed apixaban 5 MG Oral Tablet [Eliquis] [place] ([facility]) celecoxib 200 MG Oral Capsule celecoxib 200 mg capsule TAKE ONE CAPSULE BY MOUTH TWICE A DAY WITH FOOD celecoxib 200 mg capsule TAKE ONE CAPSUL E BY MOUTH TWICE A DAY WITH FOOD completed celeco xib 200 MG Oral Capsule [place] ([facility]) Trazodone Hydrochloride 50 MG Oral Table t trazodone 50 mg tablet TAKE ONE TABLET BY MOUTH EVERY DAY AT BEDTIME NEEDED trazodone 50 mg tablet TAKE ONE TABLET BY MOUTH EVERY DAY AT BEDTIME NEEDED completed trazodone hydrochloride 50 MG Oral Tablet [facility] ([facility]) celecoxib 200 MG Oral Capsule celecoxib 200 mg capsule TAKE ONE CAPSULE BY MOUTH TWICE A DAY WITH FOOD celecoxib 200 mg capsule TAKE ONE CAPSUL E BY MOUTH TWICE A DAY WITH FOOD completed celeco xib 200 MG Oral Capsule [facility] ([facility]) sofosbuvir 400 mg-velpatasvir 100 mg tablet TAKE ONE T ABLET BY MOUTH EVERY DAY [id number] completed sofosbu vir 400 MG / velpatasvir 100 MG Oral Tablet [facility] ([facility]) Trazodone Hydrochloride 50 MG Oral Table t trazodone 50 mg tablet TAKE ONE TABLET BY MOUTH EVERY DAY AT BEDTIME NEEDED trazodone 50 mg tablet TAKE ONE TABLET BY MOUTH EVERY DAY AT BEDTIME NEEDED completed trazodone hydrochloride 50 MG Oral Tablet [facility] ([facility]) celecoxib 200 MG Oral Capsule celecoxib 200 mg capsule TAKE ONE CAPSULE BY MOUTH TWICE A DAY WITH FOOD celecoxib 200 mg capsule TAKE ONE CAPSUL E BY MOUTH TWICE A DAY WITH FOOD completed celeco xib 200 MG Oral Capsule [facility] ([facility]) Insurance Providers Payer name Policy type / Coverage type Policy ID Covered green party ID Covered green party's relationship to lind Policy Lind Plan Information [place]ID [place] [id number] Self [id number] [facility] MEDICAID [id number] Self [id number] PERSONAL PAY XXX SELF XXX [facility] COMMUNITY PLAN [id number] SELF [id number] [employer] [facility] [id number] SELF [id number] [facility] COMMUNITY PLAN UNAVAILABLE SELF UNAVAILABLE [facility] MEDICAID [id number] Self [id number] MEDICAID [place] [id number] Self [id number] [facility] MEDICAID [id number] [facility] MEDICAID [id number] Self [id number] [facility] MEDICAID [id number] Glenna [id number] [facility] MEDICAID [id number] SELF PAY ONLY [id number] SP [id number] EMEDNY [id number] SP [id number] [facility] COMMUNITY PLAN MCDO [id number] SP [id number] [facility] MEDICAID [id number] SP [id number] U Problems, Conditions, and Diagnoses Code Display Name Description Problem Type Effective Dates Data Source(s) 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 Y83.1 Surgical operation with impl ant of [...] OF THE PROCEDURE Diagnosis 03/03/2020 02:06:00 PM 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 G89.29 Other chronic pain OTHER CHRONIC PAIN Diagnosis 02:06:00 PM [facility] M54.5 Low back pain LOW BACK PAIN Diagnosis 03/03/2020 02:06:00 PM [facility] R74.01 ELEV LVLS LIVER TRANSAMINASE LVLS ELEVAT ION OF LEVELS OF LIVER TRANSAMINASE LEVELS Diagnosis 03/03/2020 02:06:00 PM [facility] M46.44 Discitis, unspecified, thoracic region D ISCITIS, UNSPECIFIED, THORACIC REGION Diagnosis 03/03/2020 02:06:00 PM [facility] T82.594A Other mechanical complication of infusio n catheter, initial encounter OTHER MECHANICAL COMPLICATION OF INFUSION CATHETER, INITIAL ENCOUNTER Diagnosis 03/03/2020 02:06:00 PM [facility] I26.90 Septic pulmonary embolism without acute cor pulmonale SEPTIC PULMONARY EMBOLISM WITHOUT ACUTE COR PULMONALE Diagnosis 03/03/2020 02:06:00 PM [facility] I33.0 Acute and subacute infective endocarditi s ACUTE AND SUBACUTE INFECTIVE ENDOCARDITIS Diagnosis 03/03/2020 02:06:00 PM [facility] J18.9 Pneumonia, unspecified organism PNEUMONIA, UNSPECIFIED ORGANISM Diagnosis 03/03/2020 02:06:00 PM [facility] A40.9 Streptococcal sepsis, unspecified STREPTOCOCCAL SEPSIS, UNSPECIFIED Diagnosis 03/03/2020 02:06:00 PM [facility] A41.9 Sepsis, unspecified organism SEPSIS, UNSPECIFIED ORGAN ISM Diagnosis 03/03/2020 02:06:00 PM [facility] [id number] Body mass index 25-29 - overweight Body Mass Ind ex 25-29 - Overweight Problem 12/30/2020 12:00:00 AM EDT [place] ([facility]) [id number] Body mass index 25-29 - overweight Body Mass Ind ex 25-29 - Overweight Problem 12/30/2020 12:00:00 AM EDT [place] ([facility]) [id number] Body mass index 25-29 - overweight Body Mass Ind ex 25-29 - Overweight Problem 12/30/2020 12:00:00 AM EDT [place] ([facility]) [id number] Body mass index 25-29 - overweight Body Mass Ind ex 25-29 - Overweight Problem 12/30/2020 12:00:00 AM EDT [facility] ([facility]) L60.0 [id number] Ingrown toenail of left foot Problem 12/09/2020 12:00:00 AM EDT eCW1 ([facility]) [id number] Superficial acne vulgaris Superficial Acne Vulgaris Pr oblem 12/08/2020 12:00:00 AM EDT [facility] ([facility]) [id number] Gastric ulcer Gastric Ulcer Problem 12/08/2020 12:00:00 AM EDT [facility] ([facility]) [id number] Superficial acne vulgaris Superficial Acne Vulgaris Pr oblem 12/08/2020 12:00:00 AM EDT [facility] ([facility]) [id number] Gastric ulcer Gastric Ulcer Problem 12/08/2020 12:00:00 AM EDT [facility] ([facility]) [id number] Superficial acne vulgaris Superficial Acne Vulgaris Pr oblem 12/08/2020 12:00:00 AM EDT [facility] ([facility]) [id number] Gastric ulcer Gastric Ulcer Problem 12/08/2020 12:00:00 AM EDT [facility] ([facility]) [id number] Superficial acne vulgaris Superficial Acne Vulgaris Pr oblem 12/08/2020 12:00:00 AM EDT [facility] ([facility]) [id number] Gastric ulcer Gastric Ulcer Problem 12/08/2020 12:00:00 AM EDT [facility] ([facility]) [id number] Superficial acne vulgaris Superficial Acne Vulgaris Pr oblem 12/08/2020 12:00:00 AM EDT [facility] ([facility]) [id number] Gastric ulcer Gastric Ulcer Problem 12/08/2020 12:00:00 AM EDT [facility] ([facility]) [id number] Superficial acne vulgaris Superficial Acne Vulgaris Pr oblem 12/08/2020 12:00:00 AM EDT [facility] ([facility]) [id number] Gastric ulcer Gastric Ulcer Problem 12/08/2020 12:00:00 AM EDT [facility] ([facility]) [id number] Superficial acne vulgaris Superficial Acne Vulgaris Pr oblem 12/08/2020 12:00:00 AM EDT [facility] ([facility]) [id number] Gastric ulcer Gastric Ulcer Problem 12/08/2020 12:00:00 AM EDT [facility] ([facility]) [id number] Opioid dependence in remission Opioid Dependence in Re mission Problem 11/24/2020 12:00:00 AM EDT [facility] ([facility]) [id number] Opioid dependence in remission Opioid Dependence in Re mission Problem 11/24/2020 12:00:00 AM EDT [facility] ([facility]) [id number] Opioid dependence in remission Opioid Dependence in Re mission Problem 11/24/2020 12:00:00 AM EDT CHARAN ([facility]) [id number] Opioid dependence in remission Opioid Dependence in Re mission Problem 11/24/2020 12:00:00 AM EDT CHARAN ([facility]) [id number] Opioid dependence in remission Opioid Dependence in Re mission Problem 11/24/2020 12:00:00 AM EDT CHARAN ([facility]) [id number] Opioid dependence in remission Opioid Dependence in Re mission Problem 11/24/2020 12:00:00 AM EDT CHARAN ([facility]) [id number] Opioid dependence in remission Opioid Dependence in Re mission Problem 11/24/2020 12:00:00 AM EDT CHARAN ([facility]) [id number] Opioid dependence in remission Opioid Dependence in Re mission Problem 11/24/2020 12:00:00 AM EDT CHARAN ([facility]) I26.99 Pulmonary embolism Pulmonary embolism [id number] 09/2020 12:00:00 AM EDT [facility] 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 Endocarditis of tricus pid valve [id number] 11/16/2020 12:00:00 AM EDT [facility] I10 [id number] Hypertension, unspecified type Problem 08/04 12:00:00 AM EDT eCW1 ([facility]) F19.11 [id number] Intravenous drug abuse in remission Probl em 05/20/2020 12:00:00 AM EST eCW1 ([facility]) A49.1 [id number] Infection due to Streptococcus mitis grou p Problem 04/22/2020 12:00:00 AM EST eCW1 ([facility]) G89.29 [id number] Other chronic pain Problem 04/22/2020 12:00: 00 AM EST eCW1 ([facility]) B18.2 [id number] Chronic hepatitis C without hepatic coma Problem 04/22/2020 12:00:00 AM EST eCW1 ([facility]) M46.44 [id number] Discitis thoracic region Problem 04/22/2020 12:00:00 AM EST eCW1 ([facility]) I07.9 [id number] Endocarditis of tricuspid valve Problem 04/22/2020 12:00:00 AM EST eCW1 ([facility]) I26.90 [id number] Acute septic pulmonary embolism without acute cor pulmonale Problem 04/22/2020 12:00:00 AM EST eCW1 ([facility]) Surgeries/Procedures Procedure Description Date Indications Data Source(s) ECG ROUTINE ECG W/LEAST 12 LDS W/I&R <td>POCT AMB EKG</td><td>Routine</td><td>11/18/2020 3:51 PM EDT</td><td> Endocarditis of tricuspid valve</td><td> </td> 11/18/2020 03:51:00 PM EDT Endocarditis of tricuspid valve [facility] Endocarditis of tricuspid valve HEPATITIS A VACCINE ADULT FOR INTRAMUSCULAR USE 2020 12:00:00 AM EDT eCW1 ([facility]) SEDIMENTATION RATE RBC AUTOMATED <td>SEDIMENTATION RAT E, AUTOMATED</td><td>Routine</td><td>04/14/2020 9:10 AM EST</td><td></td><td> </td> 04/14/2020 09:10:00 AM EST [facility] CBC AND DIFFERENTIAL <td>CBC AND DIFFERENTIAL</td ><td>Routine</td><td>04/14/2020 9:10 AM EST</td><td></td><td> </td> 04/14/2020 09:10:00 AM EST [facility] C-REACTIVE PROTEIN <td>C-REACTIVE PROTEIN</td>< td>Routine</td><td>04/14/2020 9:10 AM EST</td><td></td><td> </td> 04/14/2020 09:10:00 AM [facility] COMPREHENSIVE METABOLIC PANEL <td>COMPREHENSIVE METABO LIC PANEL</td><td>Routine</td><td>04/14/2020 9:10 AM EST</td><td></td><td> </td> 04/14/2020 09:10:00 AM [facility] SEDIMENTATION RATE RBC AUTOMATED <td>SEDIMENTATION RAT E, AUTOMATED</td><td>Routine</td><td>04/09/2020 7:45 AM EST</td><td></td><td> </td> 04/09/2020 07:45:00 AM [facility] CBC AND DIFFERENTIAL <td>CBC AND DIFFERENTIAL</td ><td>Routine</td><td>04/09/2020 7:45 AM EST</td><td></td><td> </td> 04/09/2020 07:45:00 AM [facility] C-REACTIVE PROTEIN <td>C-REACTIVE PROTEIN</td>< td>Routine</td><td>04/09/2020 7:45 AM EST</td><td></td><td> </td> 04/09/2020 07:45:00 AM [facility] COMPREHENSIVE METABOLIC PANEL <td>COMPREHENSIVE METABO LIC PANEL</td><td>Routine</td><td>04/09/2020 7:45 AM EST</td><td></td><td> </td> 04/09/2020 07:45:00 AM EST [facility] SEDIMENTATION RATE RBC AUTOMATED <td>SEDIMENTATION RAT E, AUTOMATED</td><td>Routine</td><td>04/02/2020 8:55 AM EST</td><td></td><td> </td> 04/02/2020 08:55:00 AM EST [facility] CBC AND DIFFERENTIAL <td>CBC AND DIFFERENTIAL</td ><td>Routine</td><td>04/02/2020 8:55 AM EST</td><td></td><td> </td> 04/02/2020 08:55:00 AM EST [facility] C-REACTIVE PROTEIN <td>C-REACTIVE PROTEIN</td>< td>Routine</td><td>04/02/2020 8:55 AM EST</td><td></td><td> </td> 04/02/2020 08:55:00 AM EST [facility] COMPREHENSIVE METABOLIC PANEL <td>COMPREHENSIVE METABO LIC PANEL</td><td>Routine</td><td>04/02/2020 8:55 AM EST</td><td></td><td> </td> 04/02/2020 08:55:00 AM EST [facility] SEDIMENTATION RATE RBC AUTOMATED <td>SEDIMENTATION RAT E, AUTOMATED</td><td>Routine</td><td>03/24/2020 8:35 AM EST</td><td></td><td> </td> 03/24/2020 08:35:00 AM EST [facility] BLOOD COUNT COMPLETE AUTOMATED <td>CBC</td><td>Routine </td><td>03/24/2020 8:35 AM EST</td><td></td><td> </td> 03/24/2020 08:35:00 AM EST [facility] C-REACTIVE PROTEIN <td>C-REACTIVE PROTEIN</td>< td>Routine</td><td>03/24/2020 8:35 AM EST</td><td></td><td> </td> 03/24/2020 08:35:00 AM EST [facility] COMPREHENSIVE METABOLIC PANEL <td>COMPREHENSIVE METABO LIC PANEL</td><td>Routine</td><td>03/24/2020 8:35 AM EST</td><td></td><td> </td> 03/24/2020 08:35:00 AM EST [facility] SEDIMENTATION RATE RBC AUTOMATED <td>SEDIMENTATION RAT E, AUTOMATED</td><td>Routine</td><td>03/19/2020 1:00 AM EST</td><td></td><td> </td> 03/19/2020 01:00:00 AM [facility] BLOOD COUNT COMPLETE AUTOMATED <td>CBC</td><td>Routine </td><td>03/19/2020 1:00 AM EST</td><td></td><td> </td> 03/19/2020 01:00:00 AM [facility] C-REACTIVE PROTEIN <td>C-REACTIVE PROTEIN</td>< td>Routine</td><td>03/19/2020 1:00 AM EST</td><td></td><td> </td> 03/19/2020 01:00:00 AM EST [facility] COMPREHENSIVE METABOLIC PANEL <td>COMPREHENSIVE METABO LIC PANEL</td><td>Routine</td><td>03/19/2020 1:00 AM EST</td><td></td><td> </td> 03/19/2020 01:00:00 AM EST [facility] RBC AND PLATELET MORPHOLGY <td>RBC AND PLATELET MORPHOLGY</td><td>Routine</td><td>03/12/2020 11:40 AM EST</td><td></td><td> </td> 03/12/2020 11:40:00 AM EST [facility] SEDIMENTATION RATE RBC AUTOMATED <td>SEDIMENTATION RAT E, AUTOMATED</td><td>Routine</td><td>03/12/2020 11:40 AM EST</td><td></td><td> </td> 03/12/2020 11:40:00 AM [facility] BLOOD COUNT COMPLETE AUTOMATED <td>CBC</td><td>Routine </td><td>03/12/2020 11:40 AM EST</td><td></td><td> </td> 03/12/2020 11:40:00 AM [facility] C-REACTIVE PROTEIN <td>C-REACTIVE PROTEIN</td>< td>Routine</td><td>03/12/2020 11:40 AM EST</td><td></td><td> </td> 03/12/2020 11:40:00 AM EST [facility] COMPREHENSIVE METABOLIC PANEL <td>COMPREHENSIVE METABO LIC PANEL</td><td>Routine</td><td>03/12/2020 11:40 AM EST</td><td></td><td> </td> 03/12/2020 11:40:00 AM EST [facility] SEDIMENTATION RATE RBC AUTOMATED <td>SEDIMENTATION RAT E, AUTOMATED</td><td>Routine</td><td>03/05/2020 8:46 PM EST</td><td></td><td> </td> 03/05/2020 08:46:00 PM EST [facility] CBC AND DIFFERENTIAL <td>CBC AND DIFFERENTIAL</td ><td>Routine</td><td>03/05/2020 8:46 PM EST</td><td></td><td> </td> 03/05/2020 08:46:00 PM EST [facility] C-REACTIVE PROTEIN <td>C-REACTIVE PROTEIN</td>< td>Routine</td><td>03/05/2020 8:46 PM EST</td><td></td><td> </td> 03/05/2020 08:46:00 PM EST [facility] COMPREHENSIVE METABOLIC PANEL <td>COMPREHENSIVE METABO LIC PANEL</td><td>Routine</td><td>03/05/2020 8:46 PM EST</td><td></td><td> </td> 03/05/2020 08:46:00 PM EST [facility] Echocardiography, Profl,Tranthoracic, Realtime Image Ushan salty 02/15/2020 12:00:00 AM EST [facility]ENT ([facility]) SEDIMENTATION RATE RBC AUTOMATED <td>SEDIMENTATION RAT E, AUTOMATED</td><td>STAT</td><td>02/12/2020 7:00 AM EST</td><td></td><td> </td> 02/12/2020 07:00:00 AM EST [facility] BLOOD COUNT COMPLETE AUTOMATED <td>CBC</td><td>STAT</t d><td>02/12/2020 7:00 AM EST</td><td></td><td> </td> 02/12/2020 07:00:00 AM EST [facility] C-REACTIVE PROTEIN <td>C-REACTIVE PROTEIN</td>< td>STAT</td><td>02/12/2020 7:00 AM EST</td><td></td><td> </td> 02/12/2020 07:00:00 AM EST [facility] COMPREHENSIVE METABOLIC PANEL <td>COMPREHENSIVE METABO LIC PANEL</td><td>STAT</td><td>02/12/2020 7:00 AM EST</td><td></td><td> </td> 02/12/2020 07:00:00 AM EST [facility] Results ID Date Data Source [id number] 12/22/2020 12:00:00 AM EDT [facility]) Name Value Range Interpretation Code Description Data Danielle rce(s) Supporting Document(s) ID Date Data Source [id number] 12/22/2020 12:00:00 AM EDT [facility]) Name Value Range Interpretation Code Description Data Danielle rce(s) Supporting Document(s) ID Date Data Source [id number] 12/22/2020 [facility] Name Value Range Interpretation Code Description Data Danielle rce(s) Supporting Document(s) ID Date Data Source [id number] 12/22/2020 12:00:00 AM EDT [facility]) Name Value Range Interpretation Code Description Data Danielle rce(s) Supporting Document(s) ID Date Data Source [id number] 12/15/2020 12:00:00 AM EDT [facility]) Name Value Range Interpretation Code Description Data Danielle rce(s) Supporting Document(s) ID Date Data Source [id number] 12/15/2020 12:00:[facility] Name Value Range Interpretation Code Description Data Danielle rce(s) Supporting Document(s) ID Date Data Source [id number] 12/15/2020 12:00:00 AM EDT CHARAN ([facility]) Name Value Range Interpretation Code Description Data Danielle rce(s) Supporting Document(s) ID Date Data Source [id number] 12/15/2020 12[facility]00:[facility] Name Value Range Interpretation Code Description Data Danielle rce(s) Supporting Document(s) ID Date Data Source [id number] 12/15/2020 12:00:00 AM EDT [facility]) Name Value Range Interpretation Code Description Data Danielle rce(s) Supporting Document(s) ID Date Data Source HEPATITIS C QUANT BY PCR 12/09/2020 12:00:00 AM EDT eCW1 ([facility]) Name Value Range Interpretation Code Description Data Danielle rce(s) Supporting Document(s) HCV Not Detected . HEPATITIS C QUANTIT ATION eCW1 ([facility]) TNP . Hepatitis C log10 eCW1 ([facility]) ID Date Data Source LIVER PROFILE 12/09/2020 12:00:00 AM EDT eCW1 ([facility]) Name Value Range Interpretation Code Description Data Danielle rce(s) Supporting Document(s) 22 12-78 ALT/SGPT eCW1 ([facility]) 18 7-37 AST/SGOT eCW1 ([facility]) 87 45-117 ALKALINE PHOSPHATASE eCW1 ([facility]) 3.5 3.2-5.2 ALBUMIN eCW1 ([facility]) 0.2 0.2-1.0 BILIRUBIN,TOTAL eCW1 ([facility]) < 0.1 0.0-0.2 BILIRUBIN,DIRECT eCW1 ([facility]) 7.0 6.4-8.2 TOTAL PROTEIN eCW1 ([facility]) 1.0 ALBUMIN/GLOBULIN RATIO eCW1 ([facility]) ID Date Data Source [id number] 12/08/2020 12:00:00 [facility] Name Value Range Interpretation Code Description Data Danielle rce(s) Supporting Document(s) ID Date Data Source [id number] 12/08/2020 12:00:00 [facility] Name Value Range Interpretation Code Description Data Danielle rce(s) Supporting Document(s) ID Date Data Source [id number] 12/08/2020 12:00:00 [facility] Name Value Range Interpretation Code Description Data Danielle rce(s) Supporting Document(s) ID Date Data Source [id number] 12/08/2020 12:00:00 [facility] Name Value Range Interpretation Code Description Data Danielle rce(s) Supporting Document(s) ID Date Data Source [id number] 12/08/2020 12:00:00 AM EDT [facility]) Name Value Range Interpretation Code Description Data Danielle rce(s) Supporting Document(s) ID Date Data Source [id number] 12/08/2020 12:00:00 AM EDT [facility]) Name Value Range Interpretation Code Description Data Danielle rce(s) Supporting Document(s) ID Date Data Source [id number] 12/01/2020 12:00:00 AM EDT [facility]) Name Value Range Interpretation Code Description Data Danielle rce(s) Supporting Document(s) ID Date Data Source [id number] 12/01/2020 12:00:00 AM EDT [facility]) Name Value Range Interpretation Code Description Data Danielle rce(s) Supporting Document(s) ID Date Data Source [id number] 12/01/2020 12:00:00 AM EDT [facility]) Name Value Range Interpretation Code Description Data Danielle rce(s) Supporting Document(s) ID Date Data Source [id number] 12/01/2020 12:00:00 AM EDT [facility]) Name Value Range Interpretation Code Description Data Danielle rce(s) Supporting Document(s) ID Date Data Source [id number] 12/01/2020 12:00:00 AM EDT [facility]) Name Value Range Interpretation Code Description Data Danielle rce(s) Supporting Document(s) ID Date Data Source [id number] 12/01/2020 12:00:00 AM EDT [facility]) Name Value Range Interpretation Code Description Data Danielle rce(s) Supporting Document(s) ID Date Data Source [id number] 12/01/2020 12:00:00 AM EDT [facility]) Name Value Range Interpretation Code Description Data Danielle rce(s) Supporting Document(s) ID Date Data Source [id number] 11/24/2020 12:00:00 [facility] Name Value Range Interpretation Code Description Data Danielle rce(s) Supporting Document(s) ID Date Data Source [id number] 11/24/2020 12:00:00 [facility] Name Value Range Interpretation Code Description Data Danielle rce(s) Supporting Document(s) ID Date Data Source [id number] 11/24/2020 12:00:00 [facility] Name Value Range Interpretation Code Description Data Danielle rce(s) Supporting Document(s) ID Date Data Source [id number] 11/24/2020 12:00:00 [facility] Name Value Range Interpretation Code Description Data Danielle rce(s) Supporting Document(s) ID Date Data Source [id number] 11/24/2020 12:00:00 AM [facility] Name Value Range Interpretation Code Description Data Danielle rce(s) Supporting Document(s) ID Date Data Source [id number] 11/24/2020 12:00:00 AM EDT [facility]) Name Value Range Interpretation Code Description Data Danielle rce(s) Supporting Document(s) ID Date Data Source [id number] 11/24/2020 12:00:00 [facility] Name Value Range Interpretation Code Description Data Danielle rce(s) Supporting Document(s) ID Date Data Source [id number] 11/24/2020 12:00:00 [facility] Name Value Range Interpretation Code Description Data Danielle rce(s) Supporting Document(s) ID Date Data Source URINE CULTURE 08/04/2020 12:00:00 AM EDT eCW1 ([facility]) Name Value Range Interpretation Code Description Data Danielle rce(s) Supporting Document(s) URINE CULTURE eCW1 ([facility]) ID Date Data Source UA URINALYSIS 08/04/2020 12:00:00 AM EDT eCW1 ([facility]) Name Value Range Interpretation Code Description Data Danielle rce(s) Supporting Document(s) UA URINALYSIS eCW1 ([facility]) ID Date Data Source HEPATITIS C FIBROSURE [id number] 04/22/2020 12:00:00 AM EST eC W1 ([facility]) Name Value Range Interpretation Code Description Data Danielle rce(s) Supporting Document(s) 0.11 0.00-0.21 eCW1 ([facility]) A0-No activity . eCW1 ([facility]) . eCW1 ([facility]) 0.11 0.00-0.17 eCW1 ([facility]) 0.2 0.0-1.2 eCW1 ([facility]) 267 17-317 eCW1 ([facility]) 128 101-178 eCW1 ([facility]) 282 110-276 eCW1 ([facility]) 29 0-55 eCW1 ([facility]) 17 0-65 eCW1 ([facility]) . eCW1 ([facility]) . eCW1 ([facility]) . eCW1 ([facility]) . eCW1 ([facility]) . eCW1 ([facility]) ID Date Data Source HEPATITIS C GENOTYPE 04/22/2020 12:00:00 AM EST eCW1 ([facility]) Name Value Range Interpretation Code Description Data Danielle rce(s) Supporting Document(s) 3 . eCW1 ([facility]) . eCW1 ([facility]) ID Date Data Source BLOOD CULTURES 04/22/2020 12:00:00 AM EST eCW1 ([facility]) Name Value Range Interpretation Code Description Data Danielle rce(s) Supporting Document(s) eCW1 ([facility]) ID Date Data Source ERYTHROCYTE SEDIMENTATION RATE 04/22/2020 12:00:00 AM EST eC W1 ([facility]) Name Value Range Interpretation Code Description Data Danielle rce(s) Supporting Document(s) 19 0-15 eCW1 ([facility]) ID Date Data Source CBC with Differential 04/22/2020 12:00:00 AM EST eCW1 ([facility]) Name Value Range Interpretation Code Description Data Danielle rce(s) Supporting Document(s) 9.6 4.0-10.0 eCW1 ([facility]) 5.37 4.30-6.10 eCW1 ([facility]) 13.3 13.5-17.5 eCW1 ([facility]) 44.9 42.0-52.0 eCW1 ([facility]) 83.6 80.0-96.0 eCW1 ([facility]) 24.8 27.0-33.0 eCW1 ([facility]) 29.6 32.0-36.5 eCW1 ([facility]) 394 150-450 eCW1 ([facility]) 17.2 11.5-14.5 eCW1 ([facility]) 68.2 36.0-66.0 eCW1 ([facility]) 20.2 24.0-44.0 eCW1 ([facility]) 0.4 0.0-1.0 eCW1 ([facility]) 8.2 0.0-5.0 eCW1 ([facility]) 6.5 1.5-8.5 eCW1 ([facility]) 2.6 0.0-3.0 eCW1 ([facility]) 0.3 0.0-0.5 eCW1 ([facility]) 0.0 0.0-0.2 eCW1 ([facility]) 1.9 1.5-5.0 eCW1 ([facility]) 0.8 0.0-0.8 eCW1 ([facility]) ID Date Data Source [id number] 04/22/2020 12:00:00 AM EST eCW1 ([facility]) Name Value Range Interpretation Code Description Data Danielle rce(s) Supporting Document(s) eCW1 ([facility]) ID Date Data Source HEPATITIS B SURFACE ANTIBODY 04/22/2020 12:00:00 AM EST eCW1 ([facility]) Name Value Range Interpretation Code Description Data Danielle rce(s) Supporting Document(s) POSITIVE POSITIVE eCW1 ([facility]) ID Date Data Source Comprehensive Metabolic Profile (CMP) 04/22/2020 12:00:00 AM EST eCW1 ([facility]) Name Value Range Interpretation Code Description Data Danielle rce(s) Supporting Document(s) 80 70-100 eCW1 ([facility]) 24 7-18 eCW1 ([facility]) 141 136-145 eCW1 ([facility]) 4.4 3.5-5.1 eCW1 ([facility]) 0.84 0.70-1.30 eCW1 ([facility]) > 60.0 >60 eCW1 ([facility]) 26 21-32 eCW1 ([facility]) 107 98-107 eCW1 ([facility]) 12 7-37 eCW1 ([facility]) 9.2 8.5-10.1 eCW1 ([facility]) 0.2 0.2-1.0 eCW1 ([facility]) 32 12-78 eCW1 ([facility]) 8.1 6.4-8.2 eCW1 ([facility]) 106 45-117 eCW1 ([facility]) 1.0 eCW1 ([facility]) 4.0 3.2-5.2 eCW1 ([facility]) ID Date Data Source [id number] 04/18/2020 01:32:40 PM EST [facility] Name Value Range Interpretation Code Description Data Danielle rce(s) Supporting Document(s) Telephone Encounter [facility] [id number]/CGMnlDZOly4QdTYteOWj4HQdwKTPrE9RwNUM1zL7kJOR2QXaOTtNlGgGlAnB1 lbm [file] AgICAgICAgICAgICAgICAgICAgICAgICAgICAgICAgICAgICAgICAgICAgICAgICAgICAgDQogICAgIC AgICAgICAgICAgICAgICAgICAgICAgICAgICAgICAg ICAgICAgICAgICAgICAgICAgICAgICAgICAgICAgICAgICAgICAgICAgICAgICAgICAgICAgICAgICAg ICAgDQogICAgICAgICAgICAgICAgICAgICAgICAgICAgICAgICAgICAgICAgICAgICAgICAgICAgICAg ICAgICAgICAgICAgICAgICAgICAgICAgICAgICAgIC AgICAgICAgICAgICAgDQogICAgICAgICAgICAgICAgICAgICAgICAgICAgICAgICAgICAgICAgICAgIC AgICAgICAgICAgICAgICAgICAgICAgICAgICAgICAgICAgICAgICAgICAgICAgICAgICAgICAgDQogIC AgICAgICAgICAgICAgICAgICAgICAgICAgICAgICAg ICAgICAgICAgICAgICAgICAgICAgICAgICAgICAgICAgICAgICAgICAgICAgICAgICAgICAgICAgICAg ICAgICAgDQogICAgICAgICAgICAgICAgICAgICAgICAgICAgICAgICAgICAgICAgICAgICAgICAgICAg ICAgICAgICAgICAgICAgICAgICAgICAgICAgICAgIC AgICAgICAgICAgICAgICAgDQogICAgICAgICAgICAgICAgICAgICAgICAgICAgICAgICAgICAgICAgIC AgICAgICAgICAgICAgICAgICAgICAgICAgICAgICAgICAgICAgICAgICAgICAgICAgICAgICAgICAgDQ ogICAgICAgICAgICAgICAgICAgICAgICAgICAgICAg ICAgICAgICAgICAgICAgICAgICAgICAgICAgICAgICAgICAgICAgICAgICAgICAgICAgICAgICAgICAg ICAgICAgICAgDQogICAgICAgICAgICAgICAgICAgICAgICAgICAgICAgICAgICAgICAgICAgICAgICAg ICAgICAgICAgICAgICAgICAgICAgICAgICAgICAgIC AgICAgICAgICAgICAgICAgICAgDQogICAgICAgICAgICAgICAgICAgICAgICAgICAgICAgICAgICAgIC AgICAgICAgICAgICAgICAgICAgICAgICAgICAgICAgICAgICAgICAgICAgICAgICAgICAgICAgICAgIC OgPXt5F8ihCSFiXHPbTZ0zIMy6Qe4+DQoNCmVuZHN0 dyYcvE3WLT3mc8NeAScaRLTgt4IjPAx1GN6NUWLtAIskKG1DOLfxvv9VEAMaJWGhmIGLd5nfAkNnTTZ0 ESKjAsxoLY2EFKOzA4orpaCeHXAcWKDLGJ4LVkKsS0GsyE69MIYKIc8+IJxuswFoQiwSAtCaJCNct5Nj KHa5IT6TDRTyMsnjo4VnRcMiTYMKLIicAU5ELLS8UO JzPCZiYx2LMHGrG224oaDdMH4YZc0YQzPyBQ5rxa9DZiMwTWTgBqcRTfr4STwcFR4NoSWnGYkBOAsvmD hezgDvUB2yz5EzyTOhRWD1PKfvCW2yQRH7EGJIUIVsIKK4QCXBYiVmrXOzTvRxWrJxFDImKFtcXSLBKR uASaTxN7Bay4EdAgA1RJJqTkKlOOpfNXAsPkX5BL64 sKnuWK5HQLKfLWWeWJ48EYZuJKAwWp7PFw1WVqZfVG5fht8JDmMyDQIqPxkIOxn6ITrfGJ2IcRXkD0Pd nZBld6tYYfQkY8TGAJAbKJKdBw2UPFEcOiQaPHBmRJpxQC4xTDEiBXJQjXxsuyM7AU4SBZ0rhyHvJR3Z ImNwBy9nFn5WWzAzT5ScP7FqVFPhZACCPUjbRZ0LME qkMJ1eHP4Ul4JCtGIbgL0mut9GFQBnZNNqYazocw7FEuwmP7K6sGrxZBSaAmAgTMXXXBpqSY2MTIHpSH L9ADPjQTWkZQJVQfBbS89xKK9HO7Owg35vVkN2DITnLrLkBTgvHA14aQkfdnRwlYEcoTwsRN1KVk8+DQ plbmRvYmoNCnhyZWYNCjAgMjUNCjAwMDAwMDAwMDAg IkN0VhFvUm1WXXTwXRLsVURjGvLsSFJvCHWqPBraTDOoFZI9UEf2JJDzGCUfVQ5GQpAsOELlDpT5AWkl KGDpBHIsud0GIVRiMDYnIBW9RtVcCUUvDJIkCViwXCQaVIXoHQP5HPRtADWuMO2VSeIiSUFhQQO2MgBv BBZhATEvts1IHHTdAKShWhF2ZHWgUCPlKMWfIGvcGE PmKSYnKlb2VCXjLNJxDN5YIbOpBACxMUQ4SrMtPVQvHDTewj3JCYGcDMTiMaleWhAiVBSvFYGqVXvsHX RyXJF7IRVhXKBlQZJnMW4XUtSnTUPgMVIuZMHeUGIoMCMbtd1VTDRmDDVjWkN0GUIwQQKlTKBsTKneMM ZzLFT5BZE2DKCqWMOlKH8KJkGiRMWkWRozOxMgKCJp QDYcfe9KMLYdOFLwTkIxYmNwOXVgOLWuJAtkDRCjWSU4SVWcWQVrRGWjAV8OVfYgZGKrWAf8OYUuROPv PTWuxc2MXKSuEBYpZUX3GEUcNGSzCXSpUQvcYRQhWCY1TBSdZPFyHVWoCB2BAdDfLXCcNOsxJldmEWIo DLOtxa6YMAMzKVTjKBefNxPtHAYfDAQxDKydZESdMN UqQez1BSAcRAZpGA8EFiExQOWmKqW5QTTgDPAzVAVipg6ZlTOoyVnamn6QZBsHSz4UrZucJPC6ZTipOz 8zsPHyUMLsDHVPRp2DkzTcRQGcWPZKGWwzOJMeZQI2ABydF0YjVGLlNdEgCZqcTlBvSSSzO0IfYFcoCF u1VsK1PWd9QPUoYiD6FHArVUNwEYLbHgUyXhDzDyY2 ODExODQ+DM5vSQj+Ka0Mj3LlauJ9mkSyTDzsHWV9Lj6XLKECY3FVXs== ID Date Data Source [id number] 04/18/2020 01:10:41 PM EST [facility] Name Value Range Interpretation Code Description Data Danielle rce(s) Supporting Document(s) Telephone Encounter [facility] ZNPMCq6xZpPAKtWo33/ZKQebXRPnt1IuXCibOSz1VXacHYMvV8QbLLZ0eX2cDAF2WBaTAbXpDsQzAxB2 lbm [file] B8Q0GsBAYqLvD0SNd4Q9W2MiZ+DN3iVLv+Zk3Lz6QfrqP4xdXqREclJIe8Ha6WOIYXJ2USGv== ID Date Data Source [id number] 04/16/2020 03:44:47 PM EST [facility] Name Value Range Interpretation Code Description Data Danielle rce(s) Supporting Document(s) Telephone Encounter [facility] XXFYRg5pByLSPyFw55/TPMznHNRqg5UcQJlrYYz1ZLvcSDEjN6NtGXK5iP6aKNW6WHsTAdKkKxPvHoRy lbm [file] AgICAgICAgICAgICAgICAgICAgICAgICAgICAgICAgICAgICAgICAgICAgICAgICAgICAgICAgICAgIC TgEAFxKDXaSOGjWRWdXTYqJUNnYRMzKHAoPBPsRAEiKTWoVV0QSKNwJTDkENCgTAJdOXUkLBBjFEBnDI AgICAgICAgICAgICAgICAgICAgICAgICAgICAgICAg JLLkMPGfPLEiTOKdBUIpMOLxWJTfYOWhMOXmZSIvGHAgMFYhMVRsRKAoFWSoXA7LQBHcCDUiZKHaWBEp ICAgICAgICAgICAgICAgICAgICAgICAgICAgICAgICAgICAgICAgICAgICAgICAgICAgICAgICAgICAg JWZtYIOoPILyANRdRSOrNZLyBXNkIJRfDTFjRI2XZI AgICAgICAgICAgICAgICAgICAgICAgICAgICAgICAgICAgICAgICAgICAgICAgICAgICAgICAgICAgIC PmIQXmCTFgSAIzTYBlQYUeUBCcKOPkYMNyRHSzALGdYRPzXJPqRL9ZKWSkYYRoJFCzGYGvBOPyHCFlCS AgICAgICAgICAgICAgICAgICAgICAgICAgICAgICAg LTYxINEqAPRzPKSsSPFwOCKtDOCkDEJvWRNeICXuDCMgGFFwLQYpNBKoJPEjUBZpIE8OGISyERYkASSb ICAgICAgICAgICAgICAgICAgICAgICAgICAgICAgICAgICAgICAgICAgICAgICAgICAgICAgICAgICAg ICAgICAgICAgICAgICAgICAgICAgICAgICAgICAgIA 0KICAgICAgICAgICAgICAgICAgICAgICAgICAgICAgICAgICAgICAgICAgICAgICAgICAgICAgICAgIC FiQLZrVSVjFXGgRDBrLLNfWSOwUOMwSYHcYIJaNIGnYGDlWYAkGMOyDO3LQLFpTYPgKULhEOOyFCHnNH AgICAgICAgICAgICAgICAgICAgICAgICAgICAgICAg NOChJPEzHFUnNDLeLXDmNYHsZGByHEElKZLtBJGqQRZnBXFrXMNdECRzIGNnMLWcANZeZD4XBJSaMHOw ICAgICAgICAgICAgICAgICAgICAgICAgICAgICAgICAgICAgICAgICAgICAgICAgICAgICAgICAgICAg ICAgICAgICAgICAgICAgICAgICAgICAgICAgICAgIC QiBX9RAJStUXVdNWQeQAYuQRGvBWTkWAZpEUJcZOVeCHYvMMKvRQMcTQAiUHWcMXSxHXNlUGGhXFVqSM PeTACkIVDoKJKqCDYgOGQxIHCkGFBqOEXjFABiLQOlVTGmNUYuPRAyDUEbWY9QJH79xYBxu0B1DXJrAQ 0ndyc/Kv9EYQuribRumCFzCW5AMzOmNY1usv9UKpHk PR0hea2BCFiEDnSfF7X9yINpOBEiFFIDShBkO77gJSbcLc50STegGWTjPeEiUGi9Jh7KAqXqA4tqDMLn FqJ9FCHiEaDzGKuxKS3Tq3BkkAQrRFj+Qk8AVF5td7MtMTvePqBhWY9tmb4UYMmUYrAoZ6OwtvP8TOTa KCOfCd7VLIAcEOXfuHZmZkFdQIFJOpVvN5EkmM57TF ENCj4+AOnlqjAnCpuEJhYwWPRaj6GvNQu5HE5LXMKhEUm6bBBgBAYcFZFvs50nTIHuT967ygRrjeAjcH DUYU7pBFFubK3jANVsJXP9DQNsHc0hSIOqOFWwMzOyOQQMNU7WTRZpHXXrkEJxLPQxICOUBE6SEVcgTT S7AzfnbySqsGQaYIcyNO4VXHPnpaNpWtAxHMKMKBz+ Fc7VHF3mw9BgWIlgTBAdAP6tty8JNDjKDoQzE5C5zNGdZ8N4OMeeWl5AMRHiLGZiFpAoFUGHIEpbPL0X KH9ksjL5SP1DwFVnUCIkZRLykOGfRWi6H31qkGJhXNpvCI1VDZA+Mandeep+Zi4DUQTiZCClLPAtWjVmEBBS VfSbV6QmU7DXo2CiY5JwZX94oDohpvCkCQadMF1YKJ 9qWQDaXUDRZW1FuDNxtT7zuwVlFhCkQIEBGfTjA11cgKHjIRSnVARgPTCqWk1TAQGeZ9YaudMvjTaopg MvYAXjTLOHQD2UMDqkowAvcFDstEolPD45wDoeUU8AQk2FTzWaAQ1bxv6RrMRcFe4YDKSxNP4FDPExTJ BzCEJlYQL0UXVcAjTpDUtdYKYsHTKwENC8IMFhTWTi IQ6LXoOsVSGmXSy4OoKjAFVbOQFnxu8ZKEKmKSBfQZHxPiEmMJRzTFYcGJcvJXCfNCEfIBC0EUMzWKGf AA9YLbRoUICjJLKaJKJvFMJbIUZdfy7GNRNmBIYdFhLkDCNjXEOcMQJrLOghEYTeEVWaYWJ3BFMgVZKu MQ4OZnRkVVKoFKYaNhbsFVEoZCAksv8HHYDmXQEoUg I8UrMpGEFdSUNrYJdmABDrZJZ6MFFfABQmRKEmZO7CPxKxIEMwZTD5PWofUSRjQUNflk1FJEPlZOOxQI g3YDWkIDCbMPHvWCljWFXtRWO8GcBaNKUqXGRzAM7MLlIyLJKeKRo0VFSfZUZjZZBbwv8HXVStUYEzUx j2RWYvGQExVRSgYTvhMSBvRTB9XCC8MICcGJFbNX8S XbSyIBTtHTyxUQLgCQQlQCBfxf9HORPkOJBoEOJ5VdBoYUFwTCWaFUpqUQBnMJW5Xmk0HHAyFQIjAM5C HwDhVNHpKUr6ICXcCSYwJALcft0LWRBgLCGbNEh8VaDiUPIfRXJpPDxrOMXdQSBkZrN9UKPsRGFnFY2S ZrVuNWGuJlUsYbRpVUMiVOLaex5TIGUdXAVrNVBqAM QkSYWaEUAfDJc4hdXgwWXdETs7AH6VY1CaiaGeRoNQOi1Hp978DTL0UXQbOy0GF3toXz6mRWUyVOJBKt 5FFXp8V2F8XOg4YvWrGgX3IRGhDXPmEQUgIss6QhVrUjG8BuR+LOj0YTG0OWoyEFF7YMguFyX0KVJyEX TdZgD6J9PiGzP0XP7iLDEBFc7+BNkyzZLkmFrpGDIBTxLsLwU8OQviGEYXCd8E ID Date Data Source [id number] 04/16/2020 12:00:00 PM EST [facility] Name Value Range Interpretation Code Description Data Danielle rce(s) Supporting Document(s) :PrThr:Pt:Respiratory:Ord:Probe.amp.tar Negative [facility] This lab was ordered by [facility] in Lab Site and reported by [facility]. ID Date Data Source [id number] 04/17/2020 05:30:00 PM EST [facility] Name Value Range Interpretation Code Description Data Danielle rce(s) Supporting Document(s) CRSP SARS-CoV-2 (RT)-PCR Assay Negative Negative N ormal (applies to non-numeric results) [facility] The [place] (U.S[place] FDA has made th is test available under anemergency access mechanism called Emergency Use Authorization (EUA). TheEUA is supported by the alumnae secretary of Health and Human Services (HHSs)declaration that circumstances exist to justify the emergency use of invitro diagnostics (IVDs) for the detection and/or diagnosis of the virusthat causes COVID-19.Test performed at [facility] [place] [address]. First Test No [facility] Employed in healthcare No [facility] Symptomatic as defined by CDC No [facility] Hospitalized [facility] Resident in a congregate care setting Yes [facility] No [facility] Int[facility] Care [facility] The above 8 [place] [address] ID Date Data Source [id number] 04/14/2020 05:12:06 PM EST [facility] Name Value Range Interpretation Code Description Data Danielle rce(s) Supporting Document(s) Progress Notes [facility] OCLLZb0gDjEHTzRu84/LVLftQLIpd2IiNAdrAVm2DRmgEGBkV7TrBAV7nB7jGQR0LFiOAsLvNaVdXzGa m [file] ICAgICAgICAgICAgICAgICAgICAgICAgICAgICAgIC AgICAgICAgICAgICAgICAgICAgICAgICAgICAgICAgICAgICAgICAgICAgICANCiAgICAgICAgICAgIC AgICAgICAgICAgICAgICAgICAgICAgICAgICAgICAgICAgICAgICAgICAgICAgICAgICAgICAgICAgIC AgICAgICAgICAgICAgICAgICAgICAgICAgICANCiAg ICAgICAgICAgICAgICAgICAgICAgICAgICAgICAgICAgICAgICAgICAgICAgICAgICAgICAgICAgICAg ICAgICAgICAgICAgICAgICAgICAgICAgICAgICAgICAgICAgICANCiAgICAgICAgICAgICAgICAgICAg ICAgICAgICAgICAgICAgICAgICAgICAgICAgICAgIC AgICAgICAgICAgICAgICAgICAgICAgICAgICAgICAgICAgICAgICAgICAgICAgICANCiAgICAgICAgIC AgICAgICAgICAgICAgICAgICAgICAgICAgICAgICAgICAgICAgICAgICAgICAgICAgICAgICAgICAgIC AgICAgICAgICAgICAgICAgICAgICAgICAgICAgICAN CiAgICAgICAgICAgICAgICAgICAgICAgICAgICAgICAgICAgICAgICAgICAgICAgICAgICAgICAgICAg ICAgICAgICAgICAgICAgICAgICAgICAgICAgICAgICAgICAgICAgICANCiAgICAgICAgICAgICAgICAg ICAgICAgICAgICAgICAgICAgICAgICAgICAgICAgIC AgICAgICAgICAgICAgICAgICAgICAgICAgICAgICAgICAgICAgICAgICAgICAgICAgICANCiAgICAgIC AgICAgICAgICAgICAgICAgICAgICAgICAgICAgICAgICAgICAgICAgICAgICAgICAgICAgICAgICAgIC AgICAgICAgICAgICAgICAgICAgICAgICAgICAgICAg ICANCiAgICAgICAgICAgICAgICAgICAgICAgICAgICAgICAgICAgICAgICAgICAgICAgICAgICAgICAg ICAgICAgICAgICAgICAgICAgICAgICAgICAgICAgICAgICAgICAgICAgICANCiAgICAgICAgICAgICAg ICAgICAgICAgICAgICAgICAgICAgICAgICAgICAgIC AgICAgICAgICAgICAgICAgICAgICAgICAgICAgICAgICAgICAgICAgICAgICAgICAgICAgICANCjw/eH WnN4hjbYWovtG9O0qpXa6CTd6NAX2or7QaRDDwWSwllgYfGdxCFxYmADBxPmmDOsm5OEdjZN0RbOGbT6 UgX3DtTCtnNK3STZWnDCHsrRReVWYbWMNbSpY4WGVx MAdxZJ8LcOZvCOqwBXAkWJMtKL7QYXLcS764ulIxNE5YIl2QXuOzLS5dbx4RZuMnCQJtKukYOmx3NYrw IJ6MeGGnoEVpIpKtIQGNXxYhK8lnl7UmCkKrHNFWHMhfOF6Pu7AqqQXgZMx+Jr2NBJ1ps4YyRDrkNlWn OY4ihx6JSXaFOqHyD3ZooRlhHPTpt8ndJDKnBM3ntW GcKVN4HPFvz74iSLLUvMyih71tPU7NMQN3YZImNO5hFPFoMFP0LpM8ZOGXEY8FCHQpAHWrtSVvIKXpWI DTER0QECwuARU6UvbxvnFiiOJoTOttUV8IQWBiutNqOhHgCUEMBVh+Tv5LZF8uh2QmVAkoQXIbWH5oby 3OUMiKXhYvZ4G6eLWlW8V6GBbzWp1EEOHyTKSwBiAj ZMYSJZdwFO1NRW9eagY2DC8SaBPqEXEiQTDlvXMbWDn3W20tpDZcYEjwZJ4OWUV+Mandeep+Ns9PQECwZPIk BWZcLaBvGYUYGzBjA1DpV9XTi1PuC5CyDS00rCcjwnXlEUgpCX7REF9oIQQfNFUUPK5UiZGorA2egsUz RqNfYSBGTrAzT96rzVEsKFBxNAZyCBDkSn3CKCKnC5 NktdEchLlaykDhJCClXRQRRZ5FEXoxjyIxzFDtqEtdBX03wBwdEB0YMy6CDdPhKN4lig6SiPXfFr9CIM NjDN0EHWSkQDYnYVYjKWI2JNMhKxMbGRdtKTEqZBClIYV9AVFiVTEdXV4VIyUdEZBmHHd4LSigUSMlJO Ogyh6YQGPjAKHvFOG3CSXxWQIeLIJcSHomIBXlZKCm SGP9JNArWGXvRS1RCxGbNYPpEVCnXIneAEFvPJOtzl5MLFXxLVSeDLG2AxWzIKWkNLOaKNixQJXjUFHf QOVdCWBqZGVoTC9JDcEdISBrUAJ1SCLnWOUzTEHyya5FZXQyXMGhKad1XuXlZLCaEXMdZWuoMXTmPWXd IQC2PDIlHWWjYA7WIeRxKXGmKZNpZPKxZAEyWMJfuj 7OIGSmMRNpLHIaXQYhCFWwEBMwSJnfYBWpTUY7QAq0XXIhDBMtCZ7RCyHjVDNvMTF3DMUcTVVkRTOwdb 1KWDAaMUPwLqCrZIAsBHEpDPQuWGadDBXxPAS4AlC1PIGoGXFfBT5AFoMnPCRoCZh6SVWoAVHrBQQpzq 5DPNIiQQUzBZQfUrFkXEGlSPIdOUrzZLHgWPL4IuPm GJVgONKhDM8OFqZbRFKlIIt3JNXoVSZcFSXadh0KJJBwXCJqVQOtDTVgSBRdCRRjJQqeDZDgRINwEiW2 DDCoYNDrVF8OCgPhQBQiGmM3BjQiCAYpWHGxye3ATKMkWSNwOWq3YiDtBSDvKNArLEm0qvLxuYQrPHe8 FJ9KD6DlvgCcEsSJRb5Yh794SOS4ZSXsMz9WC1neOv 3hQYLyNKZFLk1VSGw7VKqdPFvpCiQ0F8WpGtdbMeUlVegpJ7SbPcMqOsM9SXS+JHwaQ1F7HMJ1DNVyCV VsZ8Q0IJY6ORPgTBDhV0A9Keu4YM2wHRSUCg4+WKnxlEQhlCdtKBMRCrCnGKDwSPdlPDHUDx1V ID Date Data Source [id number] 04/14/2020 03:20:00 PM EST [facility] Name Value Range Interpretation Code Description Data Danielle rce(s) Supporting Document(s) AST 25 IU/L 15-37 Normal (applies to non-numeric resul ts) [facility] Sulfasalazine and sulfapyridine have the potential to falsely depressAspartate Aminotransferase results. Baseline values before medication administration are recommended. ALT 35 IU/L 16-61 Normal (applies to non-numeric resul ts) [facility] Sulfasalazine and sulfapyridine have the potential to falsely depressAlanine Aminotransferase results. Baseline values before medication administration are recommended. Alkaline Phosphatase 108 mIU/ml 50-136 Normal (applies to n on-numeric results) [facility] Total Bilirubin 0.30 mg/dl 0.20-1.00 Normal (applies to non-numeric results) [facility] Blood Urea Nitrogen 19 mg/dl 7-18 Above high normal [facility] Creatinine 0.77 mg/dl 0.67-1.17 Normal (applies to non-numeric resul ts) [facility] N-Acetylcysteine (NAC) and Metamizole hearn ve the potential to falselydepress Creatinine results. Baseline values before medication adminstration are recommended. Patients undergoing treatment with phenindione will have falselydepressed results. Patients on phenindione therapy should be tested with an alternativeCREA method.Toxic levels of acetaminophen may lead to falsely depressed results forpatient samples. Glomerular Filtration Rate >90.00 mL/min/1.73m2 [facility] GFR Reference Ranges:Normal Function or Mild Renal [...] of Health and the National KidneyFoundation. The [place] method used in calculating this result is traceable to IDMS standards. Glucose 78 mg/dl 70-110 Normal (applies to non-numeric resul ts) [facility] Sulfasalazine has the potential to false ly depress Glucose results. Sulfapyridine has the potential to falsely elevate Glucose results. Baseline values before medication administration are recommended. Calcium 9.7 mg/dl 8.5-10.1 Normal (applies to non-numeric resul ts) [facility] Total Protein 8.2 g/dl 6.4-8.2 Normal (applies to non-numeric re sults) [facility] Albumin 4.1 g/dl 3.4-5.0 Normal (applies to non-numeric resul ts) [facility] Sodium 140 mEq/L 136-145 Normal (applies to non-numeric resul ts) [facility] Potassium 4.9 mEq/L 3.5-5.1 Normal (applies to non-numeric resul ts) [facility] Chloride 106.0 mEq/L 98.0-107.0 Normal (applies to non-numeric resu lts) [facility] Carbon Dioxide 28.0 mMol/L 21.0-32.0 Normal (applies to non-numeric results) [facility] Anion Gap 10.9 7.0-15.0 Normal (applies to non-numeric resul ts) [facility] The above 16 analytes were performed by [facility] [id number] [place] [address], ,[place] [address] ID Date Data Source [id number] 04/14/2020 03:20:00 PM EST [facility] Name Value Range Interpretation Code Description Data Danielle rce(s) Supporting Document(s) C-Reactive Protein (Non-Cardiac) 20.60 mg/L 0.00-3.00 Above high nor mal [facility] The above 1 analytes were performed by [facility] [id number] [place] [address], ,[place] [address] ID Date Data Source [id number] 04/14/2020 02:23:00 PM EST [facility] Name Value Range Interpretation Code Description Data Danielle rce(s) Supporting Document(s) WBC 8.32 x1000/ul 4.80-10.00 Normal (applies to non-numeric re sults) [facility] RBC 5.31 x1Mil/ul 4.70-6.10 Normal (applies to non-numeric re sults) [facility] Hemoglobin 13.6 g/dl 14.0-18.0 Below low normal [facility] Hematocrit 45.0 % 42.0-52.0 Normal (applies to non-numeric resul ts) [facility] MCV 84.7 fL 80.0-94.0 Normal (applies to non-numeric resul ts) [facility] MCH 25.6 pg 27.0-31.0 Below low normal [facility] MCHC 30.2 g/dl 32.2-37.0 Below low normal [facility] RDW 18.0 % 11.5-14.5 Above high normal [facility] Platelet Count 423 x1000/ul 130-400 Above high normal [facility] MPV 8.9 fL 9.4-12.4 Below low normal [facility] Neutrophils 54.1 % 40.0-74.0 Normal (applies to non-numeric resu lts) [facility] Lymphocytes 27.6 % 19.0-48.0 Normal (applies to non-numeric resu lts) [facility] Monocytes 10.9 % 3.4-9.0 Above high normal [facility] Eosinophils 6.5 % 0.0-7.0 Normal (applies to non-numeric resu lts) [facility] Basophils 0.8 % 0.0-2.0 Normal (applies to non-numeric resul ts) [facility] Immature Granulocytes 0.1 % 0.0-0.5 Normal (applies to non-nu meric results) [facility] Nucleated RBCs 0.00 % 0.00-0.20 Normal (applies to non-numeric r esults) [facility] Abs. Neutrophils 4.49 x1000/ul 1.92-8.31 Normal (applies to non-numeric results) [facility] Abs. Lymphocyte 2.30 x1000/ul 1.20-3.70 Normal (applies to non-n umeric results) [facility] Abs. Monocytes 0.91 x1000/ul 0.14-0.97 Normal (applies to non-nu meric results) [facility] Abs. Eosinophils 0.54 x1000/ul 0.00-0.76 Normal (applie s to non-numeric results) [facility] Abs. Basophils 0.07 x1000/ul 0.00-0.22 Normal (applies to non-n umeric results) [facility] Abs. Immature Gran. 0.01 x1000/ul 0.00-0.02 Normal (appl ies to non-numeric results) [facility] Abs. Nucleated RBCs 0.00 x1000/ul 0.00-0.02 Normal (appl ies to non-numeric results) [facility] The above 24 analytes were performed by [facility] [id number] [facility], ,[place] [address] ID Date Data Source [id number] 04/14/2020 02:03:00 PM EST [facility] Name Value Range Interpretation Code Description Data Danielle rce(s) Supporting Document(s) Sedimentation Rate 33 mm/hr 0-15 Above high normal [facility] The above 1 analytes were performed by [facility]on [facility] [id number] [facility], ,[place] [address] ID Date Data Source [id number] 04/12/2020 10:00:00 PM EST [facility] Name Value Range Interpretation Code Description Data Danielle rce(s) Supporting Document(s) SARS-CoV-2 & Flu A/B Specimen Source: Nasopharynx [facility] Patient Ethnicity: Unknown [facility] ADDITIONAL INFORMATIO N This PCR test is performed using the hernan SARS-CoV-2 andInfluenza A/B assay ([employer] on [facility] / [address] Systems, and it has received EmergencyUse Authorization (EUA) by the U.S. Food and DrugAdministration.Fact sheets for this Emergency Use Authorization (EUA)assay can be found at the following links:https://www.fda.gov/media/712600/download for HealthcareProvidershttps://www.fda.gov/media/577844/download for PatientsTest Performed by:[facility] [place] [id number] Director: Flo Rodriguez M.D. Ph.D.; CLIA# [id number] Patient Race: Unknown [facility] SARS CoV-2 RNA PCR Undetected Undetected Normal (appli es to non-numeric results) [facility] SARS-CoV-2 RNA absent. This result does not rule outCOVID-19 in the patient, as the sensitivity of the testdepends on the timing of the specimen collection and thequality of the specimen. Result should be correlated withpatient's history and clinical presentation. Influenza A RNA PCR Undetected Undetected Normal (appl ies to non-numeric results) [facility] Influenza A RNA absent. Influenza B RNA PCR Undetected Undetected Normal (appl ies to non-numeric results) [facility] Influenza B RNA absent.The above 6 yamilex andrew were performed by [facility] [employer] ([id number]) ID Date Data Source [id number] 04/09/2020 02:34:00 PM [facility] Name Value Range Interpretation Code Description Data Danielle rce(s) Supporting Document(s) Sedimentation Rate 36 mm/hr 0-15 Above high normal [facility] The above 1 analytes were performed by [facility] [address], ,[place] [address] ID Date Data Source [id number] 04/09/2020 01:52:00 PM [facility] Name Value Range Interpretation Code Description Data Danielle rce(s) Supporting Document(s) C-Reactive Protein (Non-Cardiac) 21.00 mg/L 0.00-3.00 Above high nor mal [facility] The above 1 analytes [facility] [address], ,[place] [address] ID Date Data Source [id number] 04/09/2020 01:52:00 PM [facility] Name Value Range Interpretation Code Description Data Danielle rce(s) Supporting Document(s) AST 16 IU/L 15-37 Normal (applies to non-numeric resul ts) [facility] Sulfasalazine and sulfapyridine have the potential to falsely depressAspartate Aminotransferase results. Baseline values before medication administration are recommended. ALT 31 IU/L 16-61 Normal (applies to non-numeric resul ts) [facility] Sulfasalazine and sulfapyridine have the potential to falsely depressAlanine Aminotransferase results. Baseline values before medication administration are recommended. Alkaline Phosphatase 116 mIU/ml 50-136 Normal (applies to n on-numeric results) [facility] Total Bilirubin 0.10 mg/dl 0.20-1.00 Below low normal [facility] Blood Urea Nitrogen 19 mg/dl 7-18 Above high normal [facility] Creatinine 0.75 mg/dl 0.67-1.17 Normal (applies to non-numeric resul ts) [facility] N-Acetylcysteine (NAC) and Metamizole hearn ve the potential to falselydepress Creatinine results. Baseline values before medication adminstration are recommended. Patients undergoing treatment with phenindione will have falselydepressed results. Patients on phenindione therapy should be tested with an alternativeCREA method.Toxic levels of acetaminophen may lead to falsely depressed results forpatient samples. Glomerular Filtration Rate >90.00 mL/min/1.73m2 [facility] GFR Reference Ranges:Normal Function or Mild Renal [...] of Health and the National KidneyFoundation. The [place] method used in calculating this result is traceable to IDMS standards. Glucose 89 mg/dl 70-110 Normal (applies to non-numeric resul ts) [facility] Sulfasalazine has the potential to false ly depress Glucose results. Sulfapyridine has the potential to falsely elevate Glucose results. Baseline values before medication administration are recommended. Calcium 9.4 mg/dl 8.5-10.1 Normal (applies to non-numeric resul ts) [facility] Total Protein 7.9 g/dl 6.4-8.2 Normal (applies to non-numeric re sults) [facility] Albumin 3.6 g/dl 3.4-5.0 Normal (applies to non-numeric resul ts) [facility] Sodium 140 mEq/L 136-145 Normal (applies to non-numeric resul ts) [facility] Potassium 4.5 mEq/L 3.5-5.1 Normal (applies to non-numeric resul ts) [facility] Chloride 107.0 mEq/L 98.0-107.0 Normal (applies to non-numeric resu lts) [facility] Carbon Dioxide 26.5 mMol/L 21.0-32.0 Normal (applies to non-numeric results) [facility] Anion Gap 11.0 7.0-15.0 Normal (applies to non-numeric resul ts) [facility] The above 16 analytes were performed by [facility] [address],[facility]#: [id number],[place] [address] ID Date Data Source [id number] 04/09/2020 01:45:00 PM EST [facility] Name Value Range Interpretation Code Description Data Danielle rce(s) Supporting Document(s) WBC 7.08 x1000/ul 4.80-10.00 Normal (applies to non-numeric re sults) [facility] RBC 5.01 x1Mil/ul 4.70-6.10 Normal (applies to non-numeric re sults) [facility] Hemoglobin 12.5 g/dl 14.0-18.0 Below low normal [facility] Hematocrit 41.9 % 42.0-52.0 Below low normal [facility] MCV 83.6 fL 80.0-94.0 Normal (applies to non-numeric resul ts) [facility] MCH 25.0 pg 27.0-31.0 Below low normal [facility] MCHC 29.8 g/dl 32.2-37.0 Below low normal [facility] RDW 18.3 % 11.5-14.5 Above high normal [facility] Platelet Count 369 x1000/ul 130-400 Normal (applies to non-numeric results) [facility] MPV 9.2 fL 9.4-12.4 Below low normal [facility] Neutrophils 62.1 % 40.0-74.0 Normal (applies to non-numeric resu lts) [facility] Lymphocytes 21.6 % 19.0-48.0 Normal (applies to non-numeric resu lts) [facility] Monocytes 10.3 % 3.4-9.0 Above high normal [facility] Eosinophils 5.1 % 0.0-7.0 Normal (applies to non-numeric resu lts) [facility] Basophils 0.6 % 0.0-2.0 Normal (applies to non-numeric resul ts) [facility] Immature Granulocytes 0.3 % 0.0-0.5 Normal (applies to non-nu meric results) [facility] Nucleated RBCs 0.00 % 0.00-0.20 Normal (applies to non-numeric r esults) [facility] Abs. Neutrophils 4.40 x1000/ul 1.92-8.31 Normal (applies to non-numeric results) [facility] Abs. Lymphocyte 1.53 x1000/ul 1.20-3.70 Normal (applies to non-n umeric results) [facility] Abs. Monocytes 0.73 x1000/ul 0.14-0.97 Normal (applies to non-nu meric results) [facility] Abs. Eosinophils 0.36 x1000/ul 0.00-0.76 Normal (applie s to non-numeric results) [facility] Abs. Basophils 0.04 x1000/ul 0.00-0.22 Normal (applies to non-n umeric results) [facility] Abs. Immature Gran. 0.02 x1000/ul 0.00-0.02 Normal (appl ies to non-numeric results) [facility] Abs. Nucleated RBCs 0.00 x1000/ul 0.00-0.02 Normal (appl ies to non-numeric results) [facility] The above 24 analytes were performed by [facility] [id number] [place] [id number] [address] ID Date Data Source [id number] 04/02/2020 11:00:00 PM EST [facility] Name Value Range Interpretation Code Description Data Danielle rce(s) Supporting Document(s) :PrThr:Pt:Respiratory:Ord:Probe.amp.tar Negative [facility] This lab was ordered by [facility] in Lab Site and reported by [facility]. ID Date Data Source [id number] 04/03/2020 02:51:00 PM EST [facility] Name Value Range Interpretation Code Description Data Danielle rce(s) Supporting Document(s) [facility] SARS-CoV-2 (RT)-PCR Assay Negative Negative N ormal (applies to non-numeric results) [facility] The [place] FDA has made th is test available under anemergency access mechanism called Emergency Use Authorization (EUA). TheEUA is supported by the [place]umnae secretary of Health and Human Services (HHSs)declaration that circumstances exist to justify the emergency use of invitro diagnostics (IVDs) for the detection and/or diagnosis of the virusthat causes COVID-19.Test performed at [facility] located at [facility], [address] [place] [address]. First Test No [facility] Employed in healthcare No [facility] Symptomatic as defined by CDC No [facility] Date of Symptom Onset NA [facility] Hospitalized No [facility] Resident in a congregate care setting Yes [facility] No [facility] Intensive Care No [facility]alt System The above 9 analytes were performed by [facility] [place] [address] ID Date Data Source [id number] 04/02/2020 02:07:00 PM EST [facility] Name Value Range Interpretation Code Description Data Danielle rce(s) Supporting Document(s) AST 18 IU/L 15-37 Normal (applies to non-numeric resul ts) [facility] Sulfasalazine and sulfapyridine have the potential to falsely depressAspartate Aminotransferase results. Baseline values before medication administration are recommended. ALT 30 IU/L 16-61 Normal (applies to non-numeric resul ts) [facility] Sulfasalazine and sulfapyridine have the potential to falsely depressAlanine Aminotransferase results. Baseline values before medication administration are recommended. Alkaline Phosphatase 115 mIU/ml 50-136 Normal (applies to n on-numeric results) [facility] Total Bilirubin 0.20 mg/dl 0.20-1.00 Normal (applies to non-numeric results) [facility] Blood Urea Nitrogen 20 mg/dl 7-18 Above high normal [facility] Creatinine 0.78 mg/dl 0.67-1.17 Normal (applies to non-numeric resul ts) [facility] N-Acetylcysteine (NAC) and Metamizole hearn ve the potential to falselydepress Creatinine results. Baseline values before medication adminstration are recommended. Patients undergoing treatment with phenindione will have falselydepressed results. Patients on phenindione therapy should be tested with an alternativeCREA method.Toxic levels of acetaminophen may lead to falsely depressed results forpatient samples. Glomerular Filtration Rate >90.00 mL/min/1.73m2 [facility] GFR Reference Ranges:Normal Function or Mild Renal [...] of Health and the National KidneyFoundation. The [place] method used in calculating this result is traceable to IDVA standards. Glucose 64 mg/dl 70-110 Below low normal [facility] Sulfasalazine has the potential to false ly depress Glucose results. Sulfapyridine has the potential to falsely elevate Glucose results. Baseline values before medication administration are recommended. Calcium 9.5 mg/dl 8.5-10.1 Normal (applies to non-numeric resul ts) [facility] Total Protein 8.0 g/dl 6.4-8.2 Normal (applies to non-numeric re sults) [facility] Albumin 3.8 g/dl 3.4-5.0 Normal (applies to non-numeric resul ts) [facility] Sodium 141 mEq/L 136-145 Normal (applies to non-numeric resul ts) [facility] Potassium 4.9 mEq/L 3.5-5.1 Normal (applies to non-numeric resul ts) [facility] Chloride 107.0 mEq/L 98.0-107.0 Normal (applies to non-numeric resu lts) [facility] Carbon Dioxide 28.0 mMol/L 21.0-32.0 Normal (applies to non-numeric results) [facility] Anion Gap 10.9 7.0-15.0 Normal (applies to non-numeric resul ts) [facility] The above 16 analytes were performed by [facility] [id number] [place] [address],[facility]#: [id number],[place] [address] ID Date Data Source [id number] 04/02/2020 02:07:00 PM EST [facility] Name Value Range Interpretation Code Description Data Danielle rce(s) Supporting Document(s) C-Reactive Protein (Non-Cardiac) 13.70 mg/L 0.00-3.00 Above high nor mal [facility] The above 1 analytes were performed by [facility] [id number] [facility], ,[place] [address] ID Date Data Source [id number] 04/02/2020 01:51:00 PM EST [facility] Name Value Range Interpretation Code Description Data Danielle rce(s) Supporting Document(s) WBC 8.30 x1000/ul 4.80-10.00 Normal (applies to non-numeric re sults) [facility] RBC 5.08 x1Mil/ul 4.70-6.10 Normal (applies to non-numeric re sults) [facility] Hemoglobin 12.6 g/dl 14.0-18.0 Below low normal [facility] Hematocrit 43.1 % 42.0-52.0 Normal (applies to non-numeric resul ts) [facility] MCV 84.8 fL 80.0-94.0 Normal (applies to non-numeric resul ts) [facility] MCH 24.8 pg 27.0-31.0 Below low normal [facility] MCHC 29.2 g/dl 32.2-37.0 Below low normal [facility] RDW 19.0 % 11.5-14.5 Above high normal [facility] Platelet Count 456 x1000/ul 130-400 Above high normal [facility] MPV 9.4 fL 9.4-12.4 Normal (applies to non-numeric resul ts) [facility] Neutrophils 60.7 % 40.0-74.0 Normal (applies to non-numeric resu lts) [facility] Lymphocytes 24.2 % 19.0-48.0 Normal (applies to non-numeric resu lts) [facility] Monocytes 10.2 % 3.4-9.0 Above high normal [facility] Eosinophils 4.0 % 0.0-7.0 Normal (applies to non-numeric resu lts) [facility] Basophils 0.8 % 0.0-2.0 Normal (applies to non-numeric resul ts) [facility] Immature Granulocytes 0.1 % 0.0-0.5 Normal (applies to non-nu meric results) [facility] Nucleated RBCs 0.00 % 0.00-0.20 Normal (applies to non-numeric r esults) [facility] Abs. Neutrophils 5.03 x1000/ul 1.92-8.31 Normal (applies to non-numeric results) [facility] Abs. Lymphocyte 2.01 x1000/ul 1.20-3.70 Normal (applies to non-n umeric results) [facility] Abs. Monocytes 0.85 x1000/ul 0.14-0.97 Normal (applies to non-nu meric results) [facility] Abs. Eosinophils 0.33 x1000/ul 0.00-0.76 Normal (applie s to non-numeric results) [facility] Abs. Basophils 0.07 x1000/ul 0.00-0.22 Normal (applies to non-n umeric results) [facility] Abs. Immature Gran. 0.01 x1000/ul 0.00-0.02 Normal (appl ies to non-numeric results) [facility] Abs. Nucleated RBCs 0.00 x1000/ul 0.00-0.02 Normal (appl ies to non-numeric results) [facility] The above 24 analytes were performed by [facility] [id number] [place] [address], ,[place] [address] ID Date Data Source [id number] 04/02/2020 01:41:00 PM EST [facility] Name Value Range Interpretation Code Description Data Danielle rce(s) Supporting Document(s) Sedimentation Rate 34 mm/hr 0-15 Above high normal [facility] The above 1 analytes were performed by [facility] [id number] [place] [address], ,[place] [address] ID Date Data Source [id number] 04/01/2020 07:17:02 PM EST [facility] Name Value Range Interpretation Code Description Data Danielle rce(s) Supporting Document(s) Progress Notes [facility] [id number] lbm [file] [id number] ID Date Data Source [id number] 03/26/2020 11:00:00 AM EST [facility] Name Value Range Interpretation Code Description Data Danielle rce(s) Supporting Document(s) :PrThr:Pt:Respiratory:Ord:Probe.amp.tar Negative [facility] This lab was ordered by [facility] in Lab Site and reported by [facility] [place]. ID Date Data Source [id number] 03/28/2020 08:21:00 AM EST [facility] Name Value Range Interpretation Code Description Data Danielle rce(s) Supporting Document(s) CRSP SARS-CoV-2 (RT)-PCR Assay Negative Negative N ormal (applies to non-numeric results) [facility] The [place] (U.S[place] FDA has made th is test available under anemergency access mechanism called Emergency Use Authorization (EUA). TheEUA is supported by the [place]umnae secretary of Health and Human Services (HHSs)declaration that circumstances exist to justify the emergency use of invitro diagnostics (IVDs) for the detection and/or diagnosis of the virusthat causes COVID-19.Test performed at [facility] located at [facility], [address] [place] [address]. First Test No [facility] Employed in healthcare No [facility] Symptomatic as defined by CDC No [facility] Resident in a congregate care setting Yes [facility] No [facility] Int[facility] The above 8 analytes were performed by [facility] [place] [address] ID Date Data Source [id number] 03/24/2020 04:38:00 PM EST [facility] Name Value Range Interpretation Code Description Data Danielle rce(s) Supporting Document(s) WBC 9.67 x1000/ul 4.80-10.00 Normal (applies to non-numeric re sults) [facility] RBC 4.44 x1Mil/ul 4.70-6.10 Below low normal [facility] Hemoglobin 10.9 g/dl 14.0-18.0 Below low normal [facility] Hematocrit 36.8 % 42.0-52.0 Below low normal [facility] MCV 82.9 fL 80.0-94.0 Normal (applies to non-numeric resul ts) [facility] MCH 24.5 pg 27.0-31.0 Below low normal [facility] MCHC 29.6 g/dl 32.2-37.0 Below low normal [facility] RDW 18.5 % 11.5-14.5 Above high normal [facility] Platelet Count 493 x1000/ul 130-400 Above high normal M [facility] MPV 8.6 fL 9.4-12.4 Below low normal [facility] Nucleated RBCs 0.00 % 0.00-0.20 Normal (applies to non-numeric r esults) [facility] Abs. Nucleated RBCs 0.00 x1000/ul 0.00-0.02 Normal (appl ies to non-numeric results) [facility] The above 12 analytes were performed by [facility] [id number] [place] [address], ,[place] [address] ID Date Data Source [id number] 03/24/2020 04:28:00 PM [facility] Name Value Range Interpretation Code Description Data Danielle rce(s) Supporting Document(s) Sedimentation Rate 84 mm/hr 0-15 Above high normal [facility] The above 1 analytes were performed by [facility] [id number] [place] [address], ,[place] [address] ID Date Data Source [id number] 03/24/2020 04:08:00 PM [facility] Name Value Range Interpretation Code Description Data Danielle rce(s) Supporting Document(s) C-Reactive Protein (Non-Cardiac) 25.00 mg/L 0.00-3.00 Above high nor mal [facility] The above 1 analytes were performed [facility] [id number] [place] [address], ,[place] [address] ID Date Data Source [id number] 03/24/2020 04:08:00 PM [facility] Name Value Range Interpretation Code Description Data Danielle rce(s) Supporting Document(s) AST 16 IU/L 15-37 Normal (applies to non-numeric resul ts) [facility] Sulfasalazine and sulfapyridine have the potential to falsely depressAspartate Aminotransferase results. Baseline values before medication administration are recommended. ALT 26 IU/L 16-61 Normal (applies to non-numeric resul ts) [facility] Sulfasalazine and sulfapyridine have the potential to falsely depressAlanine Aminotransferase results. Baseline values before medication administration are recommended. Alkaline Phosphatase 110 mIU/ml 50-136 Normal (applies to n on-numeric results) [facility] Total Bilirubin 0.10 mg/dl 0.20-1.00 Below low normal [facility] Blood Urea Nitrogen 19 mg/dl 7-18 Above high normal [facility] Creatinine 0.84 mg/dl 0.67-1.17 Normal (applies to non-numeric resul ts) [facility] N-Acetylcysteine (NAC) and Metamizole hearn ve the potential to falselydepress Creatinine results. Baseline values before medication adminstration are recommended. Patients undergoing treatment with phenindione will have falselydepressed results. Patients on phenindione therapy should be tested with an alternativeCREA method.Toxic levels of acetaminophen may lead to falsely depressed results forpatient samples. Glomerular Filtration Rate >90.00 mL/min/1.73m2 [facility] GFR Reference Ranges:Normal Function or Mild Renal [...] of Health and the National KidneyFoundation. The [place] method used in calculating this result is traceable to IDMS standards. Glucose 84 mg/dl 70-110 Normal (applies to non-numeric resul ts) [facility] Sulfasalazine has the potential to false ly depress Glucose results. Sulfapyridine has the potential to falsely elevate Glucose results. Baseline values before medication administration are recommended. Calcium 8.9 mg/dl 8.5-10.1 Normal (applies to non-numeric resul ts) [facility] Total Protein 7.6 g/dl 6.4-8.2 Normal (applies to non-numeric re sults) [facility] Albumin 3.2 g/dl 3.4-5.0 Below low normal [facility] Sodium 139 mEq/L 136-145 Normal (applies to non-numeric resul ts) [facility] Potassium 5.2 mEq/L 3.5-5.1 Above high normal [facility] Chloride 106.0 mEq/L 98.0-107.0 Normal (applies to non-numeric resu lts) [facility] Carbon Dioxide 27.2 mMol/L 21.0-32.0 Normal (applies to non-numeric results) [facility] Anion Gap 11.0 7.0-15.0 Normal (applies to non-numeric resul ts) [facility] The above 16 analytes were performed by [facility] [id number] [place] [address],[facility]#: [id number],[place] [address] ID Date Data Source [id number] 03/20/2020 01:18:11 PM EST [facility] Name Value Range Interpretation Code Description Data Danielle rce(s) Supporting Document(s) Telephone Encounter [facility] [id number] lbm [file] [id number] ID Date Data Source [id number] 03/25/2020 11:47:00 AM EST [facility] Name Value Range Interpretation Code Description Data Danielle rce(s) Supporting Document(s) Culture Result No Growth After 5 Days [facility] The above 1 analytes were performed by Ronny Ruggiero's [id number], ,[place] [address] ID Date Data Source [id number] 03/22/2020 07:10:00 PM EST [facility] Name Value Range Interpretation Code Description Data Danielle rce(s) Supporting Document(s) SARS-CoV-2 & Flu A/B Specimen Source: Nasopharynx [facility] Patient Ethnicity: Unknown [facility] ADDITIONAL INFORMATIO N This PCR test is performed using the hernan SARS-CoV-2 andInfluenza A/B assay ([employer] on [facility] [employer], and it has received EmergencyUse Authorization (EUA) by the U.S. Food and DrugAdministration.Fact sheets for this Emergency Use Authorization (EUA)assay can be found at the following links:https://www.fda.gov/media/782986/download for HealthcareProvidershttps://www.fda.gov/media/462159/download for PatientsTest Performed by:[address] [address]Joy Director: Flo Rodriguez M.D. Ph.D.; CLIA# [id number] Patient Race: Unknown [facility] SARS CoV-2 RNA PCR Undetected Undetected Normal (appli es to non-numeric results) [facility] SARS-CoV-2 RNA absent. This result does not rule outCOVID-19 in the patient, as the sensitivity of the testdepends on the timing of the specimen collection and thequality of the specimen. Result should be correlated withpatient's history and clinical presentation. Influenza A RNA PCR Undetected Undetected Normal (appl ies to non-numeric results) [facility] Influenza A RNA absent. Influenza B RNA PCR Undetected Undetected Normal (appl ies to non-numeric results) [facility] Influenza B RNA absent.The above 6 yamilex andrew were performed by [facility] ([id number]) ID Date Data Source [id number] 03/25/2020 11:46:00 AM EST [facility] Name Value Range Interpretation Code Description Data Danielle rce(s) Supporting Document(s) Culture Result No Growth After 5 Days [facility] The above 1 analytes were performed by Ronny Ruggiero's [id number], ,[place] [address] ID Date Data Source [id number] 03/19/2020 04:41:00 PM EST [facility] Name Value Range Interpretation Code Description Data Danielle rce(s) Supporting Document(s) AST 12 IU/L 15-37 Below low normal [facility] Sulfasalazine and sulfapyridine have the potential to falsely depressAspartate Aminotransferase results. Baseline values before medication administration are recommended. ALT 28 IU/L 16-61 Normal (applies to non-numeric resul ts) [facility] Sulfasalazine and sulfapyridine have the potential to falsely depressAlanine Aminotransferase results. Baseline values before medication administration are recommended. Alkaline Phosphatase 87 mIU/ml 50-136 Normal (applies to non-num emmanuel results) [facility] Total Bilirubin 0.10 mg/dl 0.20-1.00 Below low normal [facility] Blood Urea Nitrogen 22 mg/dl 7-18 Above high normal [facility] Creatinine 0.67 mg/dl 0.67-1.17 Normal (applies to non-numeric resul ts) [facility] N-Acetylcysteine (NAC) and Metamizole hearn ve the potential to falselydepress Creatinine results. Baseline values before medication adminstration are recommended. Patients undergoing treatment with phenindione will have falselydepressed results. Patients on phenindione therapy should be tested with an alternativeCREA method.Toxic levels of acetaminophen may lead to falsely depressed results forpatient samples. Glomerular Filtration Rate >90.00 mL/min/1.73m2 [facility] GFR Reference Ranges:Normal Function or Mild Renal [...] of Health and the National KidneyFoundation. The [place] method used in calculating this result is traceable to IDVA standards. Glucose 113 mg/dl 70-110 Above high normal [facility] Sulfasalazine has the potential to false ly depress Glucose results. Sulfapyridine has the potential to falsely elevate Glucose results. Baseline values before medication administration are recommended. Calcium 8.7 mg/dl 8.5-10.1 Normal (applies to non-numeric resul ts) [facility] Total Protein 7.0 g/dl 6.4-8.2 Normal (applies to non-numeric re sults) [facility] Albumin 2.8 g/dl 3.4-5.0 Below low normal [facility] Sodium 142 mEq/L 136-145 Normal (applies to non-numeric resul ts) [facility] Potassium 4.2 mEq/L 3.5-5.1 Normal (applies to non-numeric resul ts) [facility] Chloride 109.0 mEq/L 98.0-107.0 Above high normal [facility] Carbon Dioxide 25.4 mMol/L 21.0-32.0 Normal (applies to non-numeric results) [facility] Anion Gap 11.8 7.0-15.0 Normal (applies to non-numeric resul ts) [facility] The above 16 analytes were performed by [facility] [address],[id number],[place] [address] ID Date Data Source [id number] 03/19/2020 04:41:00 PM EST [facility] Name Value Range Interpretation Code Description Data Danielle rce(s) Supporting Document(s) C-Reactive Protein (Non-Cardiac) 71.90 mg/L 0.00-3.00 Above high nor mal [facility] The above 1 analytes were performed by [facility] [id number] [facility], ,[place] [address] ID Date Data Source [id number] 03/19/2020 04:11:00 PM EST [facility] Name Value Range Interpretation Code Description Data Danielle rce(s) Supporting Document(s) WBC 4.06 x1000/ul 4.80-10.00 Below low normal [facility] RBC 3.92 x1Mil/ul 4.70-6.10 Below low normal [facility] Hemoglobin 9.6 g/dl 14.0-18.0 Below low normal [facility] Hematocrit 32.3 % 42.0-52.0 Below low normal [facility] MCV 82.4 fL 80.0-94.0 Normal (applies to non-numeric resul ts) [facility] MCH 24.5 pg 27.0-31.0 Below low normal [facility] MCHC 29.7 g/dl 32.2-37.0 Below low normal [facility] RDW 18.1 % 11.5-14.5 Above high normal [facility] Platelet Count 461 x1000/ul 130-400 Above high normal M [facility] MPV 8.6 fL 9.4-12.4 Below low normal [facility] Nucleated RBCs 0.00 % 0.00-0.20 Normal (applies to non-numeric r esults) [facility] Abs. Nucleated RBCs 0.00 x1000/ul 0.00-0.02 Normal (appl ies to non-numeric results) [facility] The above 12 analytes were performed by [facility] [id number] [facility], ,[place] [address] ID Date Data Source [id number] 03/19/2020 04:00:00 PM [facility] Name Value Range Interpretation Code Description Data Danielle rce(s) Supporting Document(s) Sedimentation Rate 99 mm/hr 0-15 Above high normal [facility] The above 1 analytes were performed by [facility] [id number] [place] [address],[facility]#: [id number],[place] [address] ID Date Data Source [id number] 03/18/2020 01:24:43 PM EST [facility] Name Value Range Interpretation Code Description Data Danielle rce(s) Supporting Document(s) Progress Notes [facility] [id number] lbm [file] ICAgICAgICAgICAgICAgICAgICAgICAgICAgICAgIC AgICAgICAgICAgICAgICAgICAgICAgICAgICAgICAgICAgICAgICANCiAgICAgICAgICAgICAgICAgIC AgICAgICAgICAgICAgICAgICAgICAgICAgICAgICAgICAgICAgICAgICAgICAgICAgICAgICAgICAgIC AgICAgICAgICAgICAgICAgICAgICANCiAgICAgICAg ICAgICAgICAgICAgICAgICAgICAgICAgICAgICAgICAgICAgICAgICAgICAgICAgICAgICAgICAgICAg ICAgICAgICAgICAgICAgICAgICAgICAgICAgICAgICANCiAgICAgICAgICAgICAgICAgICAgICAgICAg ICAgICAgICAgICAgICAgICAgICAgICAgICAgICAgIC AgICAgICAgICAgICAgICAgICAgICAgICAgICAgICAgICAgICAgICAgICANCiAgICAgICAgICAgICAgIC AgICAgICAgICAgICAgICAgICAgICAgICAgICAgICAgICAgICAgICAgICAgICAgICAgICAgICAgICAgIC AgICAgICAgICAgICAgICAgICAgICAgICANCiAgICAg ICAgICAgICAgICAgICAgICAgICAgICAgICAgICAgICAgICAgICAgICAgICAgICAgICAgICAgICAgICAg ICAgICAgICAgICAgICAgICAgICAgICAgICAgICAgICAgICANCiAgICAgICAgICAgICAgICAgICAgICAg ICAgICAgICAgICAgICAgICAgICAgICAgICAgICAgIC AgICAgICAgICAgICAgICAgICAgICAgICAgICAgICAgICAgICAgICAgICAgICANCiAgICAgICAgICAgIC AgICAgICAgICAgICAgICAgICAgICAgICAgICAgICAgICAgICAgICAgICAgICAgICAgICAgICAgICAgIC AgICAgICAgICAgICAgICAgICAgICAgICAgICANCiAg ICAgICAgICAgICAgICAgICAgICAgICAgICAgICAgICAgICAgICAgICAgICAgICAgICAgICAgICAgICAg ICAgICAgICAgICAgICAgICAgICAgICAgICAgICAgICAgICAgICANCiAgICAgICAgICAgICAgICAgICAg ICAgICAgICAgICAgICAgICAgICAgICAgICAgICAgIC AgICAgICAgICAgICAgICAgICAgICAgICAgICAgICAgICAgICAgICAgICAgICAgICANCjw/tDXlW7uvoI FyjqT7I7suAp4XLr7FAW5bk9DfKBDxZTmrfjVaJmlUNyNkSTNkAhwMKnb3ADrzOC9ZpEEuS5RkU4PmSL alIE9NRSOdHOZjwHAxBXCqTCWcMsO1IYTpEQkcZG2D zJAxKYgwKQAaEAEtDzKsCEUuQQAgQDQjPO9BBRYeO500vzUgZh9KTy3NScRvNN4yjh1XVlipXRJmPapF Jxg0NOvlJP0XgKOkaQKhONAuTGQRUnDcA9spr1ZhYgVzZMCRMKoaUG8Vn9WaaKMeWNm+Bw3SOC7ac5Ld AJghYMGhCB6svv7WINzGHlJuE0ObtSdaOTTel1iiFP HwUR5pmHYlUYU2OHYaa84lZBLJkMyyk46gOG8HGID8HEElHU8iPSUoIZU8EcI9XDEXZU7YLMYaJIEdyH IqMRWjSUCRGP7FYGdoXSA8WsoftvGssZVoLSmtKP7FNTOznrLmUtaoQVZDCNl+Wd2XID4rt1JyZUyhYM FdIC4iqn3HYAsIOmUvL6L0gWJkC0U9KTklHf4OBVEk JSAbFtlfCLKEEXqdHM3ETQ7esgJ1LU8BoVBvQJJrCMKljDWcVDl5T28ehSJjFCpeKG0WFAE+Mandeep+Pg0K ZVBpYBHyYDZeAcGuAWLEPyBiO4XzP3TAe0ZaH6YrGL35jItujzJhVWgrTX2UZV5fUYWwIWUYIE9NwPDh yS9ehhDiXKXkBRSCSoCeL25vtIHbPIRhYWX4SFRtLk 4ITDEiD7TtqtJepOzgrzFmIYIdXJPIDK1QZNdpmwZcdXSkuCfnED89bDixSW3DGe4DFsSrLA2jnm6KdB DtSm0DLQJpVx3ZFYYrKIWeRZNjYAQ6RCQbBnIuPEcbZJGwJKMuYIN0EXEmJEIdFF1LRfApJRLcUzV7Sd YgYKCbXWYzjn7BNRZlUJLbRQqnLiYkTEMyMJQuBRqf JZJqZAGzHQJ3ESKrUDFmWF3JTrSaRWVcTBA3EWMdIPCqBSNxmf7KXYXjNYGrMif4KhTbXAOrRPChANzv MMGxZWK6AOV4MAQzBXAzEB7KAaFnDFVoOKDmSaOoRWSqHWKfkc6MLWBcXGYrCEB9JVLnAYUeDDNbRGci QFUlRTG8VesuKOIcGVIwRQ5AFiNnGLPeQSpcOBEaUV OmMFEkwr6QEZMqBKQwUVA9OiXmOUWyRWSyOOrgUVRcLSI9UxHtYMWaOVVbUR5ROtEoTFVmRSI1RDUtIR PrOLBmkn0LWJHwQUUdIIp7IBGsLGHqPAIpNJqbNUXtDWEiODzlDARbBVIeOM4EKjZlGIIiGyH1HuSmLS LrBGCdam6RCLBaEEHlWye4FmPrLQRzODSqVBqyYCYo XKXyQOJ3SPAaJREvNZ1QSnVhGTYpMsXqNJJsJVGyHQBtoh9FUDJhJYSkLEM3BGZmNOEaVHQtYYplKQSr HXN2Fsf7KQHmAOSoRU7EXpHoMUYhWwJ3NfUmEYLxQIFuer6XQABhVCRcOJV6VjRyGXGyMHYwISkrHTPy CBO7OXd4MWMmNHGaFA8YJdQkBZQbSdQ7EAJmQSAsLI Kmhf7KZNQlTAWaRsl7ExNtXPMeZCZzLHhpHYLoKVP6Oke3WYTlPOQxDA1OUuLeTHLrIij1AbObTPQnSD Iymj8DJPXwRQBvUZugMzTlLKNmIOFtWUemVYDaSJR4OVU9SEUpLNQkLD3URsToSWdoSNSRNwq9AWqyZ7 d0DPMjEi1GD4Lgi5ZkJwXnWPOWLNwsHT6kabCrNTKe At0FX3fRYgf5H1Y9OpWzRUB7SINwPRF5KTUfHUflTwKoGJJvIvEuIC7aXWVpXDJnNJJzVBk2HZLmFiWt PqMrHWExHmG9DTT1GBCuWbWyYZ1VTz9FXqF6SSL3sHIgLh4WKzvjIQbGPnPjER7ZSEu= ID Date Data Source [id number] 03/12/2020 03:52:00 PM EST [facility] Name Value Range Interpretation Code Description Data Danielle rce(s) Supporting Document(s) RBC Morphology \\Present [facility] Hypochromasia \\Slight [facility] System Platelet Estimate \\Normal based on slide scan [facility] The above 3 analytes were performed by [facility] [id number][facility] [address] ID Date Data Source [id number] 03/12/2020 03:51:00 PM EST [facility] Name Value Range Interpretation Code Description Data Danielle rce(s) Supporting Document(s) WBC 5.10 x1000/ul 4.80-10.00 Normal (applies to non-numeric re sults) [facility] RBC 4.45 x1Mil/ul 4.70-6.10 Below low normal [facility] Hemoglobin 10.9 g/dl 14.0-18.0 Below low normal [facility] Hematocrit 36.8 % 42.0-52.0 Below low normal [facility] MCV 82.7 fL 80.0-94.0 Normal (applies to non-numeric resul ts) [facility] MCH 24.5 pg 27.0-31.0 Below low normal [facility] MCHC 29.6 g/dl 32.2-37.0 Below low normal [facility] RDW 18.8 % 11.5-14.5 Above high normal [facility] Platelet Count 349 x1000/ul 130-400 Normal (applies to non-numeric results) [facility] MPV 9.0 fL 9.4-12.4 Below low normal [facility] Nucleated RBCs 0.00 % 0.00-0.20 Normal (applies to non-numeric r esults) [facility] Abs. Nucleated RBCs 0.00 x1000/ul 0.00-0.02 Normal (appl ies to non-numeric results) [facility] The above 12 analytes were performed by [facility] [id number] [place] [address], ,[place] [address] ID Date Data Source [id number] 03/12/2020 03:33:00 PM [facility] Name Value Range Interpretation Code Description Data Danielle rce(s) Supporting Document(s) Sedimentation Rate 87 mm/hr 0-15 Above high normal [facility] The above 1 analytes were performed by [facility] [id number] [place] [address], ,[place] [address] ID Date Data Source [id number] 03/12/2020 03:25:00 PM [facility] Name Value Range Interpretation Code Description Data Danielle rce(s) Supporting Document(s) C-Reactive Protein (Non-Cardiac) 134.00 mg/L 0.00-3.00 Above high no rmal [facility] The above 1 analytes were [facility] [id number] [place] [address], ,[place] [address] ID Date Data Source [id number] 03/12/2020 03:25:00 PM [facility] Name Value Range Interpretation Code Description Data Danielle rce(s) Supporting Document(s) AST 19 IU/L 15-37 Normal (applies to non-numeric resul ts) [facility] Sulfasalazine and sulfapyridine have the potential to falsely depressAspartate Aminotransferase results. Baseline values before medication administration are recommended. ALT 30 IU/L 16-61 Normal (applies to non-numeric resul ts) [facility] Sulfasalazine and sulfapyridine have the potential to falsely depressAlanine Aminotransferase results. Baseline values before medication administration are recommended. Alkaline Phosphatase 108 mIU/ml 50-136 Normal (applies to n on-numeric results) [facility] Total Bilirubin 0.20 mg/dl 0.20-1.00 Normal (applies to non-numeric results) [facility] Blood Urea Nitrogen 19 mg/dl 7-18 Above high normal [facility] Creatinine 0.68 mg/dl 0.67-1.17 Normal (applies to non-numeric resul ts) [facility] N-Acetylcysteine (NAC) and Metamizole hearn ve the potential to falselydepress Creatinine results. Baseline values before medication adminstration are recommended. Patients undergoing treatment with phenindione will have falselydepressed results. Patients on phenindione therapy should be tested with an alternativeCREA method.Toxic levels of acetaminophen may lead to falsely depressed results forpatient samples. Glomerular Filtration Rate >90.00 mL/min/1.73m2 [facility] GFR Reference Ranges:Normal Function or Mild Renal [...] of Health and the National KidneyFoundation. The [place] method used in calculating this result is traceable to IDVA standards. Glucose 81 mg/dl 70-110 Normal (applies to non-numeric resul ts) [facility] Sulfasalazine has the potential to false ly depress Glucose results. Sulfapyridine has the potential to falsely elevate Glucose results. Baseline values before medication administration are recommended. Calcium 9.0 mg/dl 8.5-10.1 Normal (applies to non-numeric resul ts) [facility] Total Protein 7.5 g/dl 6.4-8.2 Normal (applies to non-numeric re sults) [facility] Albumin 3.2 g/dl 3.4-5.0 Below low normal [facility] Sodium 140 mEq/L 136-145 Normal (applies to non-numeric resul ts) [facility] Potassium 4.9 mEq/L 3.5-5.1 Normal (applies to non-numeric resul ts) [facility] Chloride 106.0 mEq/L 98.0-107.0 Normal (applies to non-numeric resu lts) [facility] Carbon Dioxide 26.6 mMol/L 21.0-32.0 Normal (applies to non-numeric results) [facility] Anion Gap 12.3 7.0-15.0 Normal (applies to non-numeric resul ts) [facility] The above 16 analytes were performed by [facility] [address] [place] [address],[facility]#: [id number],[place] [address] ID Date Data Source [id number] 03/12/2020 09:02:00 AM EST [facility] Name Value Range Interpretation Code Description Data Danielle rce(s) Supporting Document(s) :PrThr:Pt:Respiratory:Ord:Probe.amp.tar [facility] This lab was ordered by [facility] in Lab Site and reported by [facility] [place]. ID Date Data Source [id number] 03/13/2020 03:11:00 PM EST [facility] Name Value Range Interpretation Code Description Data Danielle rce(s) Supporting Document(s) CRSP SARS-CoV-2 (RT)-PCR Assay Negative Negative N ormal (applies to non-numeric results) [facility] The [place] (U.S[place] FDA has made th is test available under anemergency access mechanism called Emergency Use Authorization (EUA). TheEUA is supported by the alumnae secretary of Health and Human Services (HHSs)declaration that circumstances exist to justify the emergency use of invitro diagnostics (IVDs) for the detection and/or diagnosis of the virusthat causes COVID-19.Test performed at [facility] located at [facility], [address] [place] [id number]. First Test No [facility] Employed in healthcare No [facility] Symptomatic as defined by CDC No [facility] Resident in a congregate care setting Yes [facility] No [facility] Int[facility] The above 8 analytes were performed by [facility] [place] [address] ID Date Data Source [id number] 03/05/2020 09:22:00 PM EST [facility] Name Value Range Interpretation Code Description Data Danielle rce(s) Supporting Document(s) AST 20 IU/L 15-37 Normal (applies to non-numeric resul ts) [facility] Sulfasalazine and sulfapyridine have the potential to falsely depressAspartate Aminotransferase results. Baseline values before medication administration are recommended. ALT 34 IU/L 16-61 Normal (applies to non-numeric resul ts) [facility] Sulfasalazine and sulfapyridine have the potential to falsely depressAlanine Aminotransferase results. Baseline values before medication administration are recommended. Alkaline Phosphatase 142 mIU/ml 50-136 Above high normal [facility] Total Bilirubin 0.10 mg/dl 0.20-1.00 Below low normal [facility] Blood Urea Nitrogen 21 mg/dl 7-18 Above high normal [facility] Creatinine 0.73 mg/dl 0.67-1.17 Normal (applies to non-numeric resul ts) [facility] N-Acetylcysteine (NAC) and Metamizole hearn ve the potential to falselydepress Creatinine results. Baseline values before medication adminstration are recommended. Patients undergoing treatment with phenindione will have falselydepressed results. Patients on phenindione therapy should be tested with an alternativeCREA method.Toxic levels of acetaminophen may lead to falsely depressed results forpatient samples. Glomerular Filtration Rate >90.00 mL/min/1.73m2 [facility] GFR Reference Ranges:Normal Function or Mild Renal [...] of Health and the National KidneyFoundation. The [place] method used in calculating this result is traceable to IDMS standards. Glucose 54 mg/dl 70-110 Below low normal [facility] Sulfasalazine has the potential to false ly depress Glucose results. Sulfapyridine has the potential to falsely elevate Glucose results. Baseline values before medication administration are recommended. Calcium 9.1 mg/dl 8.5-10.1 Normal (applies to non-numeric resul ts) [facility] Total Protein 7.8 g/dl 6.4-8.2 Normal (applies to non-numeric re sults) [facility] Albumin 3.2 g/dl 3.4-5.0 Below low normal [facility] Sodium 140 mEq/L 136-145 Normal (applies to non-numeric resul ts) [facility] Potassium 4.9 mEq/L 3.5-5.1 Normal (applies to non-numeric resul ts) [facility] Chloride 107.0 mEq/L 98.0-107.0 Normal (applies to non-numeric resu lts) [facility] Carbon Dioxide 29.9 mMol/L 21.0-32.0 Normal (applies to non-numeric results) [facility] Anion Gap 8.0 7.0-15.0 Normal (applies to non-numeric resul ts) [facility] The above 16 analytes were performed by [facility] [id number] [place] [address], ,[place] [address] ID Date Data Source [id number] 03/05/2020 09:22:00 PM EST [facility] Name Value Range Interpretation Code Description Data Danielle rce(s) Supporting Document(s) C-Reactive Protein (Non-Cardiac) 22.10 mg/L 0.00-3.00 Above high nor mal [facility] The above 1 analytes were performed [facility] [id number] [place] [address], ,[place] [address] ID Date Data Source [id number] 03/05/2020 09:06:00 PM EST [facility] Name Value Range Interpretation Code Description Data Danielle rce(s) Supporting Document(s) WBC 5.76 x1000/ul 4.80-10.00 Normal (applies to non-numeric re sults) [facility] RBC 4.06 x1Mil/ul 4.70-6.10 Below low normal [facility] Hemoglobin 9.9 g/dl 14.0-18.0 Below low normal [facility] Hematocrit 34.2 % 42.0-52.0 Below low normal [facility] MCV 84.2 fL 80.0-94.0 Normal (applies to non-numeric resul ts) [facility] MCH 24.4 pg 27.0-31.0 Below low normal [facility] MCHC 28.9 g/dl 32.2-37.0 Below low normal [facility] RDW 17.9 % 11.5-14.5 Above high normal [facility] Platelet Count 556 x1000/ul 130-400 Above high normal [facility] MPV 9.3 fL 9.4-12.4 Below low normal [facility] Neutrophils 43.2 % 40.0-74.0 Normal (applies to non-numeric resu lts) [facility] Lymphocytes 33.7 % 19.0-48.0 Normal (applies to non-numeric resu lts) [facility] Monocytes 15.1 % 3.4-9.0 Above high normal [facility] Eosinophils 6.6 % 0.0-7.0 Normal (applies to non-numeric resu lts) [facility] Basophils 1.2 % 0.0-2.0 Normal (applies to non-numeric resul ts) [facility] Immature Granulocytes 0.2 % 0.0-0.5 Normal (applies to non-nu meric results) [facility] Nucleated RBCs 0.00 % 0.00-0.20 Normal (applies to non-numeric r esults) [facility] Abs. Neutrophils 2.49 x1000/ul 1.92-8.31 Normal (applies to non-numeric results) [facility] Abs. Lymphocyte 1.94 x1000/ul 1.20-3.70 Normal (applies to non-n umeric results) [facility] Abs. Monocytes 0.87 x1000/ul 0.14-0.97 Normal (applies to non-nu meric results) [facility] Abs. Eosinophils 0.38 x1000/ul 0.00-0.76 Normal (applie s to non-numeric results) [facility] Abs. Basophils 0.07 x1000/ul 0.00-0.22 Normal (applies to non-n umeric results) [facility] Abs. Immature Gran. 0.01 x1000/ul 0.00-0.02 Normal (appl ies to non-numeric results) [facility] Abs. Nucleated RBCs 0.00 x1000/ul 0.00-0.02 Normal (appl ies to non-numeric results) [facility] The above 24 analytes were performed by [facility] [id number] [place] [address], ,[place] [address] ID Date Data Source [id number] 03/05/2020 09:01:00 PM EST [facility] Name Value Range Interpretation Code Description Data Danielle rce(s) Supporting Document(s) Sedimentation Rate 82 mm/hr 0-15 Above high normal [facility] The above 1 analytes were performed by [facility] [address] [place], [place] [address]t#: [id number],[place] [address] ID Date Data Source [id number] 03/05/2020 12:00:00 PM EST [facility] Name Value Range Interpretation Code Description Data Danielle rce(s) Supporting Document(s) :PrThr:Pt:Respiratory:Ord:Probe.amp.tar [facility] This lab was ordered by [facility] in Lab Site and reported by [facility]. ID Date Data Source [id number] 03/10/2020 12:31:00 PM EST [facility] Name Value Range Interpretation Code Description Data Danielle rce(s) Supporting Document(s) CRSP SARS-CoV-2 (RT)-PCR Assay Negative Negative N ormal (applies to non-numeric results) [facility] The [place] (U.S.) FDA has made th is test available under anemergency access mechanism called Emergency Use Authorization (EUA). TheEUA is supported by the alumnae secretary of Health and Human Services (HHSs)declaration that circumstances exist to justify the emergency use of invitro diagnostics (IVDs) for the detection and/or diagnosis of the virusthat causes COVID-19.Test performed at [facility] located at [facility], [address] [place] [address]. First Test No [facility] Employed in healthcare No [facility] Symptomatic as defined by CDC No [facility] Hospitalized No [facility] Resident in a congregate care setting Yes [facility] No [facility] Intensive Care No [facility] The above 8 [place] [address] ID Date Data Source [id number] 02/27/2020 01:52:00 PM EST [facility] Name Value Range Interpretation Code Description Data Danielle rce(s) Supporting Document(s) SARS coronavirus 2 RNA [facility] and reported by [facility]. ID Date Data Source [id number] 02/27/2020 02:30:00 PM EST [facility] NASAL; [facility] Name Value Range Interpretation Code Description Data Danielle rce(s) Supporting Document(s) ACCULA SARS-COV-2 NEGATIVE NEGATIVE [facility] Testing perfo rmed by nucleic acid amplification.This [...] Positive results are indicative of the presence qmDFHC-OxO-2 nucleic acid; clinical correlation with patient history andother diagnostic information is necessary to determine patient infectionstatus. Positive results do not rule out bacterial infection orco- infection with other viruses. R [facility], Dept of Path [address] [place] [address] * ID Date Data Source [id number] 02/27/2020 06:54:00 AM EST [facility] Name Value Range Interpretation Code Description Data Danielle rce(s) Supporting Document(s) ESTIMATED GFR (CALCULATED) [facility] EGFR 131 [facility] al >59 mL/min/1.73m2 EGFR, -SLOVENIAN [facility] >59 mL/min/1.99t1Zfbo: Persistent reduction for 3 months or more in an eGFR <60 mL/min/1.73m2 defines CKD. Patients with eGFR values >=60 mL/min/1.73m2 may also have CKD if evidence of persistent proteinuria is present. Additional information may be found at [email or web address]. R [facility], Dept of Path [address] [place] [address] * ID Date Data Source [id number] 02/27/2020 06:57:00 AM EST [facility] Name Value Range Interpretation Code Description Data Danielle rce(s) Supporting Document(s) WBC 9.7 x10E3/uL 4.3-10.9 [facility] RBC 4.00 x10E6/uL 4.70-6.20 L [facility] spital HEMOGLOBIN 9.9 g/dl 13.0-17.0 [facility] HEMATOCRIT 32.8 % 39.0-50.0 L [facility] MCV 82.0 fl 82.0-98.0 [facility] al MCH 24.8 pg 27.5-33.5 L [facility] al MCHC 30.2 g/dl 32.0-36.0 L [facility] RDW 18.3 % 11.5-14.5 H [facility] al PLATELET COUNT 699 x10E3/uL 130-400 H [facility] (Slide estimate appears increased) MPV 8.7 fl 8.6-12.6 [facility] al SEGMENTED NEUTROPHILS 66.0 % 44.0-74.0 [facility] BAND 0.0 % 0.0-4.0 [facility] al LYMPHOCYTES 18.0 % 15.0-45.0 [facility] MONOCYTES 11.0 % 2.0-13.0 [facility] EOSINOPHILS 5.0 % 0.0-6.0 [facility] BASOPHILS 0.0 % 0.0-2.0 [facility] al NEUTROPHIL ABSOLUTE 6.4 x10E3/uL 1.4-7.0 [facility] LYMPHOCYTES ABSOLUTE 1.7 x10E3/uL 1.0-3.4 [facility] MONOCYTE ABSOLUTE 1.1 x10E3/uL 0.2-1.0 H [facility] EOSINOPHIL ABSOLUTE 0.5 x10E3/uL 0.0-0.5 [facility] BASOPHIL ABSOLUTE 0.0 x10E3/uL 0.0-0.2 [facility] ANISOCYTOSIS 2+ [facility] MICROCYTOSIS 1+ A [facility] MACROCYTOSIS 1+ A [facility] R [facility], Dept of [address] [address] * ID Date Data Source [id number] 02/27/2020 06:35:00 AM EST [facility] Name Value Range Interpretation Code Description Data Danielle rce(s) Supporting Document(s) DIFFERENTIAL SCAN PERFORMED [facility], Dept of [address] [address] * ID Date Data Source [id number] 02/27/2020 06:54:00 AM [facility] Name Value Range Interpretation Code Description Data Danielle rce(s) Supporting Document(s) GLUCOSE 103 mg/dl 70-100 H [facility] al BUN 19 mg/dl 5-21 [facility] CREATININE, SERUM 0.59 mg/dl 0.60-1.30 L [facility] SODIUM 137 mmol/l 136-146 [facility] POTASSIUM 4.8 mmol/l 3.5-5.3 [facility] CHLORIDE 101 mmol/l 96-109 [facility] CARBON DIOXIDE 26 mmol/l 20-32 [facility] ospital CALCIUM 9.5 mg/dl 8.4-10.4 [facility] BUN/CREATININE RATIO 32.2 6.0-20.0 H [facility] ANION GAP 10.0 mmol/l 7.0-16.0 [facility] OSMOLALITY (CALCULATED) 276 mos/kg 280-300 L [facility], Dept of [address] [address] * ID Date Data Source [id number] 02/26/2020 06:45:00 AM EST [facility] Name Value Range Interpretation Code Description Data Danielle rce(s) Supporting Document(s) WBC 9.3 x10E3/uL 4.3-10.9 [facility] RBC 3.99 x10E6/uL 4.70-6.20 L [facility] spital HEMOGLOBIN 9.5 g/dl 13.0-17.0 L [facility] HEMATOCRIT 32.5 % 39.0-50.0 L [facility] MCV 81.5 fl 82.0-98.0 L [facility] al MCH 23.8 pg 27.5-33.5 L [facility] MCHC 29.2 g/dl 32.0-36.0 L [facility] al RDW 18.2 % 11.5-14.5 H [facility] al PLATELET COUNT 642 x10E3/uL 130-400 H [facility] (Slide estimate appears increased) MPV 9.0 fl 8.6-12.6 [facility] SEGMENTED NEUTROPHILS 58.0 % 44.0-74.0 [facility] BAND 0.0 % 0.0-4.0 [facility] al LYMPHOCYTES 24.0 % 15.0-45.0 [facility] MONOCYTES 13.0 % 2.0-13.0 [facility] al EOSINOPHILS 5.0 % 0.0-6.0 [facility] BASOPHILS 0.0 % 0.0-2.0 [facility] NEUTROPHIL ABSOLUTE 5.4 x10E3/uL 1.4-7.0 [facility] LYMPHOCYTES ABSOLUTE 2.2 x10E3/uL 1.0-3.4 [facility] MONOCYTE ABSOLUTE 1.2 x10E3/uL 0.2-1.0 H [facility] EOSINOPHIL ABSOLUTE 0.5 x10E3/uL 0.0-0.5 [facility] BASOPHIL ABSOLUTE 0.0 x10E3/uL 0.0-0.2 [facility] POLYCHROMASIA 1+ A [facility] spital ANISOCYTOSIS 2+ [facility] MICROCYTOSIS 1+ A [facility] MACROCYTOSIS 1+ A [facility] R [facility], [place] [address] * ID Date Data Source [id number] 02/26/2020 06:06:00 AM EST [facility] Name Value Range Interpretation Code Description Data Danielle rce(s) Supporting Document(s) DIFFERENTIAL SCAN PERFORMED [facility] R [facility], [place] [address] * ID Date Data Source [id number] 02/26/2020 05:54:00 AM EST [facility] Name Value Range Interpretation Code Description Data Danielle rce(s) Supporting Document(s) C-REACTIVE PROTEIN 83.8 mg/L 0.0-5.0 H [facility] R [facility] [address] [address] * ID Date Data Source [id number] 02/26/2020 05:49:00 AM EST [facility] Name Value Range Interpretation Code Description Data Danielle rce(s) Supporting Document(s) ESTIMATED GFR (CALCULATED) [facility] EGFR 133 [facility] >59 mL/min/1.73m2 EGFR, -SLOVENIAN [facility] >59 mL/min/1.33h3Xxui: Persistent reduction for 3 months or more in an eGFR <60 mL/min/1.73m2 defines CKD. Patients with eGFR values >=60 mL/min/1.73m2 may also have CKD if evidence of persistent proteinuria is present. Additional information may be found at [email or web address]. R [facility], Dept of [address] [address] * ID Date Data Source [id number] 02/26/2020 05:49:00 AM EST [facility] Name Value Range Interpretation Code Description Data Danielle rce(s) Supporting Document(s) GLUCOSE 95 mg/dl 70-100 [facility] BUN 16 mg/dl 5-21 [facility] CREATININE, SERUM 0.57 mg/dl 0.60-1.30 L [facility] SODIUM 138 mmol/l 136-146 [facility] [place] POTASSIUM 4.6 mmol/l 3.5-5.3 [facility] CHLORIDE 100 mmol/l 96-109 [facility] CARBON DIOXIDE 26 mmol/l 20-32 [facility] ospital CALCIUM 9.5 mg/dl 8.4-10.4 [facility] BUN/CREATININE RATIO 28.1 6.0-20.0 H [facility] ANION GAP 12.0 mmol/l 7.0-16.0 [facility] OSMOLALITY (CALCULATED) 277 mos/kg 280-300 L [facility], Dept of [address] [address] * ID Date Data Source [id number] 02/25/2020 09:30:01 AM [facility] Clinical history: Follow-up pneumonia co ugh.PA and [...] lobe infiltrates are worse from the prior iridaxpfeu87/2/2020 examinationFollow-up examination to resolution are suggested to exclude unlikely underlyingmass.Electronically Signed By: JAELYN RONDON, Susante: 02/25/2020 09:28 Name Value Range Interpretation Code Description Data Danielle rce(s) Supporting Document(s) ID Date Data Source [id number] 02/25/2020 07:01:00 AM [facility] Name Value Range Interpretation Code Description Data [facility] rce(s) Supporting Document(s) WBC 11.8 x10E3/uL 4.3-10.9 H [facility] spital RBC 3.83 x10E6/uL 4.70-6.20 L [facility] HEMOGLOBIN 9.5 g/dl 13.0-17.0 L [facility] HEMATOCRIT 31.2 % 39.0-50.0 L [facility] MCV 81.5 fl 82.0-98.0 L [facility] al MCH 24.8 pg 27.5-33.5 L [facility] al MCHC 30.4 g/dl 32.0-36.0 L [facility] al RDW 18.6 % 11.5-14.5 H [facility] al PLATELET COUNT 735 x10E3/uL 130-400 H [facility] (Slide estimate appears increased) MPV 8.9 fl 8.6-12.6 [facility] al SEGMENTED NEUTROPHILS 72.0 % 44.0-74.0 [facility] BAND 0.0 % 0.0-4.0 [facility] al LYMPHOCYTES 13.0 % 15.0-45.0 L [facility] MONOCYTES 11.0 % 2.0-13.0 [facility] EOSINOP[facility]ILS 4.0 % 0.0-6.0 [facility] ital BASOPHILS 0.0 % 0.0-2.0 [facility] al NEUTROPHIL ABSOLUTE 8.5 x10E3/uL 1.4-7.0 H [facility] LYMPHOCYTES ABSOLUTE 1.5 x10E3/uL 1.0-3.4 [facility] MONOCYTE ABSOLUTE 1.3 x10E3/uL 0.2-1.0 H [facility] EOSINOPHIL ABSOLUTE 0.5 x10E3/uL 0.0-0.5 [facility] BASOPHIL ABSOLUTE 0.0 x10E3/uL 0.0-0.2 [facility] POLYCHROMASIA 1+ A [facility] Ho spital HYPOCHROMIA 1+ A [facility] ital ANISOCYTOSIS 1+ A [facility] pital MICROCYTOSIS 1+ A [facility] pital R [facility], Dept of [address] [place] [address] * ID Date Data Source [id number] 02/25/2020 06:52:00 AM EST [facility] Name Value Range Interpretation Code Description Data Danielle rce(s) Supporting Document(s) ESTIMATED GFR (CALCULATED) [facility] EGFR 129 [facility] >59 mL/min/1.73m2 EGFR, -SLOVENIAN 149 [facility] >59 mL/min/1.83q8Gqym: Persistent reduction for 3 months or more in an eGFR <60 mL/min/1.73m2 defines CKD. Patients with eGFR values >=60 mL/min/1.73m2 may also have CKD if evidence of persistent proteinuria is present. Additional information may be found at [email or web address]. R [facility], Dept of [address] [place] [address] * ID Date Data Source [id number] 02/25/2020 06:52:00 AM EST [facility] Name Value Range Interpretation Code Description Data Danielle rce(s) Supporting Document(s) GLUCOSE 106 mg/dl 70-100 H [facility] BUN 15 mg/dl 5-21 [facility] CREATININE, SERUM 0.62 mg/dl 0.60-1.30 [facility] SODIUM 139 mmol/l 136-146 [facility] POTASSIUM 4.8 mmol/l 3.5-5.3 [facility] CHLORIDE 101 mmol/l 96-109 [facility] CARBON DIOXIDE 25 mmol/l 20-32 [facility] ospital CALCIUM 9.2 mg/dl 8.4-10.4 [facility] BUN/CREATININE RATIO 24.2 6.0-20.0 H [facility] ANION GAP 13.0 mmol/l 7.0-16.0 [facility] OSMOLALITY (CALCULATED) 279 mos/kg 280-300 L [facility], [place] [address] * ID Date Data Source [id number] 02/25/2020 06:28:00 AM [facility] Name Value Range Interpretation Code Description Data [facility] rce(s) Supporting Document(s) DIFFERENTIAL SCAN PERFORMED [facility] [place] [address] * ID Date Data Source [id number] 02/24/2020 10:26:00 AM [facility] Name Value Range Interpretation Code Description Data Danielle rce(s) Supporting Document(s) WBC 11.2 x10E3/uL 4.3-10.9 H [facility] spital RBC 3.43 x10E6/uL 4.70-6.20 L [facility] HEMOGLOBIN 8.5 g/dl 13.0-17.0 L [facility] HEMATOCRIT 27.7 % 39.0-50.0 L [facility] MCV 80.8 fl 82.0-98.0 L [facility] MCH 24.8 pg 27.5-33.5 L [facility] MCHC 30.7 g/dl 32.0-36.0 L [facility] RDW 18.5 % 11.5-14.5 H [facility] PLATELET COUNT 746 x10E3/uL 130-400 H [facility] (Slide estimate appears increased) MPV 8.8 fl 8.6-12.6 [facility] SEGMENTED NEUTROPHILS 63.0 % 44.0-74.0 [facility] BAND 0.0 % 0.0-4.0 [facility] LYMPHOCYTES 21.0 % 15.0-45.0 [facility] MONOCYTES 13.0 % 2.0-13.0 [facility] al EOSINOPHILS 3.0 % 0.0-6.0 [facility] BASOPHILS 0.0 % 0.0-2.0 [facility] al NEUTROPHIL ABSOLUTE 7.1 x10E3/uL 1.4-7.0 H [facility] LYMPHOCYTES ABSOLUTE 2.4 x10E3/uL 1.0-3.4 [facility] MONOCYTE ABSOLUTE 1.5 x10E3/uL 0.2-1.0 H [facility] EOSINOPHIL ABSOLUTE 0.3 x10E3/uL 0.0-0.5 [facility] BASOPHIL ABSOLUTE 0.0 x10E3/uL 0.0-0.2 [facility] POLYCHROMASIA 1+ A [facility] spital HYPOCHROMIA 1+ A [facility] ital ANISOCYTOSIS 1+ A [facility] pital MICROCYTOSIS 1+ A [facility] pital POIKILOCYTOSIS 1+ A [facility] ospital OVALOCYTOSIS 1+ A [facility] pital R [facility], Dept of [address] [address] * ID Date Data Source [id number] 02/24/2020 10:24:00 AM EST [facility] Name Value Range Interpretation Code Description Data Danielle rce(s) Supporting Document(s) DIFFERENTIAL SCAN PERFORMED [facility] R [facility], Dept of [place] [id number] * ID Date Data Source [id number] 02/24/2020 10:20:00 AM EST [facility] Name Value Range Interpretation Code Description Data Danielle rce(s) Supporting Document(s) PTT (ON HEPARIN THERAPY) 107.1 seconds 69.0-117.0 [facility] Values within the normal reference range are reflective of Heparin effectwithin the therapeutic range of 0.2-0.4 Heparin U/ml. R [facility], Dept of [place] [id number] * ID Date Data Source [id number] 02/24/2020 09:55:00 AM [facility] Name Value Range Interpretation Code Description Data Danielle rce(s) Supporting Document(s) GLUCOSE 106 mg/dl 70-100 H [facility] al BUN 13 mg/dl 5-21 [facility] CREATININE, SERUM 0.64 mg/dl 0.60-1.30 [facility] SODIUM 137 mmol/l 136-146 [facility] POTASSIUM 4.2 mmol/l 3.5-5.3 [facility] CHLORIDE 100 mmol/l 96-109 [facility] CARBON DIOXIDE 26 mmol/l 20-32 [facility] ospital CALCIUM 9.1 mg/dl 8.4-10.4 [facility] BUN/CREATININE RATIO 20.3 6.0-20.0 H [facility] ANION GAP 11.0 mmol/l 7.0-16.0 [facility] OSMOLALITY (CALCULATED) 274 mos/kg 280-300 L [facility], [place] [address] * ID Date Data Source [id number] 02/24/2020 09:55:00 AM [facility] Name Value Range Interpretation Code Description Data Danielle rce(s) Supporting Document(s) ESTIMATED GFR (CALCULATED) [facility] EGFR 127 [facility] >59 mL/min/1.73m2 EGFR, -SLOVENIAN 147 [facility] >59 mL/min/1.41n1Nday: Persistent reduction for 3 months or more in an eGFR <60 mL/min/1.73m2 defines CKD. Patients with eGFR values >=60 mL/min/1.73m2 may also have CKD if evidence of persistent proteinuria is present. Additional information may be found at [email or web address]. R [facility], Dept of [address] [address] * ID Date Data Source [id number] 02/23/2020 04:16:00 PM [facility] Name Value Range Interpretation Code Description Data Danielle rce(s) Supporting Document(s) PTT (ON HEPARIN THERAPY) 89.8 seconds 69.0-117.0 [facility] Values within the normal reference range are reflective of Heparin effectwithin the therapeutic range of 0.2-0.4 Heparin U/ml. R [facility], [facility] [address] [address] * ID Date Data Source [id number] 02/23/2020 09:41:00 AM EST [facility] Name Value Range Interpretation Code Description Data Danielle rce(s) Supporting Document(s) PTT (ON HEPARIN THERAPY) 64.5 seconds 69.0-117.0 L [facility] Values within the normal reference range are reflective of Heparin effectwithin the therapeutic range of 0.2-0.4 Heparin U/ml. R [facility], [facility] [address] [address] * ID Date Data Source [id number] 02/23/2020 08:09:00 AM EST [facility] Name Value Range Interpretation Code Description Data Danielle rce(s) Supporting Document(s) ESTIMATED GFR (CALCULATED) [facility] EGFR 131 [facility] >59 mL/min/1.73m2 EGFR, -SLOVENIAN 152 [facility] >59 mL/min/1.31e4Bnbv: Persistent reduction for 3 months or more in an eGFR <60 mL/min/1.73m2 defines CKD. Patients with eGFR values >=60 mL/min/1.73m2 may also have CKD if evidence of persistent proteinuria is present. Additional information may be found at [email or web address]. R [facility], Dept of [address] [address] * ID Date Data Source [id number] 02/23/2020 08:09:00 AM EST [facility] Name Value Range Interpretation Code Description Data Danielle rce(s) Supporting Document(s) GLUCOSE 106 mg/dl 70-100 H [facility] BUN 10 mg/dl 5-21 [facility] CREATININE, SERUM 0.59 mg/dl 0.60-1.30 L [facility] SODIUM 141 mmol/l 136-146 [facility] POTASSIUM 4.4 mmol/l 3.5-5.3 [facility] CHLORIDE 103 mmol/l 96-109 [facility] CARBON DIOXIDE 26 mmol/l 20-32 [facility] ospital CALCIUM 9.2 mg/dl 8.4-10.4 [facility] al BUN/CREATININE RATIO 16.9 6.0-20.0 [facility] ANION GAP 12.0 mmol/l 7.0-16.0 [facility] OSMOLALITY (CALCULATED) 281 mos/kg 280-300 [facility] R [facility], [place] [address] * ID Date Data Source [id number] 02/23/2020 07:44:00 AM EST [facility] Name Value Range Interpretation Code Description Data Danielle rce(s) Supporting Document(s) WBC 11.0 x10E3/uL 4.3-10.9 H [facility] spital RBC 3.46 x10E6/uL 4.70-6.20 L [facility] spital HEMOGLOBIN 8.7 g/dl 13.0-17.0 L [facility] HEMATOCRIT 27.9 % 39.0-50.0 L [facility] MCV 80.6 fl 82.0-98.0 L [facility] al MCH 25.1 pg 27.5-33.5 L [facility] al MCHC 31.2 g/dl 32.0-36.0 L [facility] al RDW 18.0 % 11.5-14.5 H [facility] al PLATELET COUNT 675 x10E3/uL 130-400 H [facility] MPV 8.9 fl 8.6-12.6 [facility] al SEGMENTED NEUTROPHILS 70.2 % 44.0-74.0 [facility] LYMPHOCYTES 14.3 % 15.0-45.0 L [facility] MONOCYTES 13.0 % 2.0-13.0 [facility] al EOSINOPHILS 2.3 % 0.0-6.0 [facility] BASOPHILS 0.2 % 0.0-2.0 [facility] al NEUTROPHIL ABSOLUTE 7.7 x10E3/uL 1.4-7.0 H [facility] LYMPHOCYTES ABSOLUTE 1.6 x10E3/uL 1.0-3.4 [facility] MONOCYTE ABSOLUTE 1.4 x10E3/uL 0.2-1.0 H [facility] EOSINOPHIL ABSOLUTE 0.3 x10E3/uL 0.0-0.5 [facility] BASOPHIL ABSOLUTE 0.0 x10E3/uL 0.0-0.2 [facility] R [facility], Dept of Pat h [address] [place] [address] * ID Date Data Source [id number] 02/22/2020 08:33:00 AM EST [facility] Name Value Range Interpretation Code Description Data Danielle rce(s) Supporting Document(s) WBC 15.1 x10E3/uL 4.3-10.9 H [facility] spital RBC 3.30 x10E6/uL 4.70-6.20 L [facility] spital HEMOGLOBIN 8.4 g/dl 13.0-17.0 [facility] HEMATOCRIT 26.3 % 39.0-50.0 [facility] MCV 79.7 fl 82.0-98.0 [facility] MCH 25.5 pg 27.5-33.5 L [facility] MCHC 31.9 g/dl 32.0-36.0 L [facility] RDW 17.8 % 11.5-14.5 [facility] PLATELET COUNT 663 x10E3/uL 130-400 H [facility] (Slide estimate appears increased) MPV 8.6 fl 8.6-12.6 [facility] al SEGMENTED NEUTROPHILS 78.0 % 44.0-74.0 H [facility] BAND 0.0 % 0.0-4.0 [facility] LYMPHOCYTES 12.0 % 15.0-45.0 L [facility] ital MONOCYTES 9.0 % 2.0-13.0 [facility] EOSINOPHILS 1.0 % 0.0-6.0 [facility] ital BASOPHILS 0.0 % 0.0-2.0 [facility] NEUTROPHIL ABSOLUTE 11.8 x10E3/uL 1.4-7.0 H [facility] LYMPHOCYTES ABSOLUTE 1.8 x10E3/uL 1.0-3.4 [facility] MONOCYTE ABSOLUTE 1.4 x10E3/uL 0.2-1.0 H [facility] EOSINOPHIL ABSOLUTE 0.2 x10E3/uL 0.0-0.5 [facility] BASOPHIL ABSOLUTE 0.0 x10E3/uL 0.0-0.2 [facility] ANISOCYTOSIS 1+ A [facility] pital MICROCYTOSIS 1+ A [facility] pital MACROCYTOSIS [facility] Ho spital R [facility], Dept of [facility] [address] [place] [address] * ID Date Data Source [id number] 02/22/2020 08:29:00 AM EST [facility] Name Value Range Interpretation Code Description Data Danielle rce(s) Supporting Document(s) DIFFERENTIAL SCAN PERFORMED [facility], Dept of [facility] [address] [place] [address] * ID Date Data Source [id number] 02/22/2020 08:14:00 AM [facility] Name Value Range Interpretation Code Description Data Danielle rce(s) Supporting Document(s) ESTIMATED GFR (CALCULATED) [facility] EGFR 131 [facility] >59 mL/min/1.73m2 EGFR, -SLOVENIAN 152 [facility] >59 mL/min/1.45y0Mekb: Persistent reduction for 3 months or more in an eGFR <60 mL/min/1.73m2 defines CKD. Patients with eGFR values >=60 mL/min/1.73m2 may also have CKD if evidence of persistent proteinuria is present. Additional information may be found at [email or web address]. R [facility], Dept of Path [address] [place] [address] * ID Date Data Source [id number] 02/22/2020 08:14:00 AM EST [facility] Name Value Range Interpretation Code Description Data Danielle rce(s) Supporting Document(s) GLUCOSE 114 mg/dl 70-100 H [facility] BUN 10 mg/dl 5-21 [facility] CREATININE, SERUM 0.59 mg/dl 0.60-1.30 L [facility] SODIUM 136 mmol/l 136-146 [facility] POTASSIUM 4.0 mmol/l 3.5-5.3 [facility] CHLORIDE 98 mmol/l 96-109 [facility] CARBON DIOXIDE 24 mmol/l 20-32 [facility] ospital CALCIUM 8.6 mg/dl 8.4-10.4 [facility] al BUN/CREATININE RATIO 16.9 6.0-20.0 [facility] ANION GAP 14.0 mmol/l 7.0-16.0 [facility] OSMOLALITY (CALCULATED) 272 mos/kg 280-300 L [facility], [place] [address] * ID Date Data Source [id number] 02/22/2020 08:08:00 AM [facility] Name Value Range Interpretation Code Description Data Dnaielle rce(s) Supporting Document(s) PTT (ON HEPARIN THERAPY) 94.9 seconds 69.0-117.0 [facility] Values within the normal reference range are reflective of Heparin effectwithin the therapeutic range of 0.2-0.4 Heparin U/ml. R [facility], [facility] [place] [address] * ID Date Data Source [id number] 02/22/2020 01:25:00 AM [facility] Name Value Range Interpretation Code Description Data Danielle rce(s) Supporting Document(s) PTT (ON HEPARIN THERAPY) 65.3 seconds 69.0-117.0 [facility] Values within the normal reference range are reflective of Heparin effectwithin the therapeutic range of 0.2-0.4 Heparin U/ml. [facility], [facility] [place] [address] * ID Date Data Source [id number] 02/21/2020 08:09:00 PM [facility] Name Value Range Interpretation Code Description Data Danielle rce(s) Supporting Document(s) WBC 12.9 x10E3/uL 4.3-10.9 H [facility] spital RBC 3.48 x10E6/uL 4.70-6.20 L [facility] spital HEMOGLOBIN 8.6 g/dl 13.0-17.0 [facility] Confirmed on reassay HEMATOCRIT 28.3 % 39.0-50.0 L [facility] Confirmed on reassay MCV 81.3 fl 82.0-98.0 L [facility] al MCH 24.7 pg 27.5-33.5 L [facility] al MCHC 30.4 g/dl 32.0-36.0 L [facility] RDW 18.0 % 11.5-14.5 H [facility] PLATELET COUNT 659 x10E3/uL 130-400 H [facility] MPV 8.6 fl 8.6-12.6 [facility] SEGMENTED NEUTROPHILS 73.7 % 44.0-74.0 [facility] LYMPHOCYTES 13.5 % 15.0-45.0 L [facility] MONOCYTES 10.6 % 2.0-13.0 [facility] al EOSINOPHILS 2.0 % 0.0-6.0 [facility] BASOPHILS 0.2 % 0.0-2.0 [facility] NEUTROPHIL ABSOLUTE 9.5 x10E3/uL 1.4-7.0 H [facility] LYMPHOCYTES ABSOLUTE 1.7 x10E3/uL 1.0-3.4 [facility] MONOCYTE ABSOLUTE 1.4 x10E3/uL 0.2-1.0 H [facility] EOSINOPHIL ABSOLUTE 0.3 x10E3/uL 0.0-0.5 [facility] BASOPHIL ABSOLUTE 0.0 x10E3/uL 0.0-0.2 [facility], [place] [address] * ID Date Data Source [id number] 02/21/2020 07:40:00 PM [facility] Name Value Range Interpretation Code Description Data Danielle rce(s) Supporting Document(s) DIFFERENTIAL SCAN PERFORMED [facility], Dept of [facility] [address] [place] [address] * ID Date Data Source [id number] 02/21/2020 06:51:00 PM [facility] Name Value Range Interpretation Code Description Data Danielle rce(s) Supporting Document(s) PTT (ON HEPARIN THERAPY) 53.4 seconds 69.0-117.0 L [facility] Values within the normal reference range are reflective of Heparin effectwithin the therapeutic range of 0.2-0.4 Heparin U/ml. R [facility], Dept of [address] [address] * ID Date Data Source [id number] 02/21/2020 02:56:00 PM [facility] PATIENT: TRINA CAICEDO LOC: Alba Romano,2BILL# : [id number] : 1985 SEX: MORDERED BY: MARIAELENA MORALEZ ORDERED : 02/21/2020 11:43 COLLECTED: 02/21/2020 12:50ORDER : [id number] RECEIVED : 02/21/2020 12:58 TEST NAME [id number] RBC AS1 [id number] transfused 02/21/20 14:56 -- Name Value Range Interpretation Code Description Data Danielle rce(s) Supporting Document(s) ID Date Data Source [id number] 02/21/2020 01:38:00 PM [facility] PATIENT: TRINA CAICEDO LOC: Carly Romano0,2BILL# : [id number] : 1985 SEX: MORDERED BY: MARIAELENA MORALEZ ORDERED : 02/21/2020 11:43 COLLECTED: 02/21/2020 12:50ORDER : [id number] RECEIVED : 02/21/2020 12:58 TEST NAME RESULTABO TYPE O 02/21/20 13:32 SAC1RH TYPE POS 02/21/20 13:33 [id number] SCREEN NEG 02/21/20 13:38 SAC1 - Name Value Range Interpretation Code Description Data Danielle rce(s) Supporting Document(s) ID Date Data Source [id number] 02/21/2020 11:59:00 AM [facility] Name Value Range Interpretation Code Description Data Danielle rce(s) Supporting Document(s) C-REACTIVE PROTEIN 240.1 mg/L 0.0-5.[address] [facility] (Results obtained by dilution) . . R [facility], [place] [address] * ID Date Data Source [id number] 02/21/2020 11:04:00 AM [facility] Name Value Range Interpretation Code Description Data Danielle rce(s) Supporting Document(s) PTT 50.6 seconds 23.7-35.5 HH [facility] Hos pital Confirmed on reassay [facility] [place] [address] * ID Date Data Source [id number] 02/21/2020 10:59:00 AM [facility] Name Value Range Interpretation Code Description Data Danielle rce(s) Supporting Document(s) WBC 15.3 x10E3/uL 4.3-10.9 H [facility] Ho spital RBC 2.76 x10E6/uL 4.70-6.20 L [facility] spital HEMOGLOBIN 6.8 g/dl 13.0-17.0 LL [facility] enedina Confirmed on reassay HEMATOCRIT 22.1 % 39.0-50.0 [facility] MCV 80.1 fl 82.0-98.0 L [facility] al MCH 24.6 pg 27.5-33.5 L [facility] al MCHC 30.8 g/dl 32.0-36.0 L [facility] al RDW 18.2 % 11.5-14.5 H [facility] al PLATELET COUNT 647 x10E3/uL 130-400 H [facility] MPV 8.7 fl 8.6-12.6 [facility] al SEGMENTED NEUTROPHILS 78.0 % 44.0-74.0 H [facility] BAND 0.0 % 0.0-4.0 [facility] al LYMPHOCYTES 12.0 % 15.0-45.0 L [facility] ital MONOCYTES 9.0 % 2.0-13.0 [facility] al EOSINOPHILS 1.0 % 0.0-6.0 [facility] BASOPHILS 0.0 % 0.0-2.0 [facility] NEUTROPHIL ABSOLUTE 11.9 x10E3/uL 1.4-7.0 H [facility] LYMPHOCYTES ABSOLUTE 1.8 x10E3/uL 1.0-3.4 [facility] MONOCYTE ABSOLUTE 1.4 x10E3/uL 0.2-1.0 H [facility] EOSINOPHIL ABSOLUTE 0.2 x10E3/uL 0.0-0.5 [facility] BASOPHIL ABSOLUTE 0.0 x10E3/uL 0.0-0.2 [facility] R [facility], [place] [address] * ID Date Data Source [id number] 02/21/2020 10:57:00 AM EST [facility] Name Value Range Interpretation Code Description Data Danielle rce(s) Supporting Document(s) ESTIMATED GFR (CALCULATED) [facility] EGFR 130 [facility] >59 mL/min/1.73m2 EGFR, -SLOVENIAN 151 [facility] >59 mL/min/1.18b8Fyxh: Persistent reduction for 3 months or more in an eGFR <60 mL/min/1.73m2 defines CKD. Patients with eGFR values >=60 mL/min/1.73m2 may also have CKD if evidence of persistent proteinuria is present. Additional information may be found at [email or web address]. R [facility], Dept of [address] [address] * ID Date Data Source [id number] 02/21/2020 10:57:00 AM [facility] Name Value Range Interpretation Code Description Data Danielle rce(s) Supporting Document(s) GLUCOSE 110 mg/dl 70-100 H [facility] al BUN 10 mg/dl 5-21 [facility] CREATININE, SERUM 0.60 mg/dl 0.60-1.30 [facility] SODIUM 134 mmol/l 136-146 L [facility] POTASSIUM 4.0 mmol/l 3.5-5.3 [facility] [place] CHLORIDE 99 mmol/l 96-109 [facility] CARBON DIOXIDE 26 mmol/l 20-32 [facility] ospital CALCIUM 8.8 mg/dl 8.4-10.4 [facility] BUN/CREATININE RATIO 16.7 6.0-20.0 [facility] ANION GAP 9.0 mmol/l 7.0-16.0 [facility] OSMOLALITY (CALCULATED) 268 mos/kg 280-300 L [facility], Dept of [address] [address] * ID Date Data Source [id number] 02/21/2020 01:18:00 AM [facility] Name Value Range Interpretation Code Description Data Danielle rce(s) Supporting Document(s) PTT 63.3 seconds 23.7-35.5 HH [facility] pital Confirmed on reassay R [facility] ospital, Dept of Path [address] [place] [address] * ID Date Data Source [id number] 02/20/2020 06:16:00 PM [facility] Name Value Range Interpretation Code Description Data Danielle rce(s) Supporting Document(s) PTT 47.9 seconds 23.7-35.5 H [facility], Dept of [address] [address] * ID Date Data Source [id number] 02/20/2020 01:35:00 PM [facility] Name Value Range Interpretation Code Description Data Danielle rce(s) Supporting Document(s) PTT (ON HEPARIN THERAPY) 40.4 seconds 69.0-117.0 L [facility] Values within the normal reference range are reflective of Heparin effectwithin the therapeutic range of 0.2-0.4 Heparin U/ml. R [facility], Dept of Path [address] [place] [address], [place] [address] * ID Date Data Source [id number] 02/21/2020 03:39:12 PM [facility] ADDENDUMAddendum:Addendu m:Please note that there is a [...] in mind if any intervention is contemplated.A [place] message has been communicated to MARCELO MARTINS MD via [employer] system on 02/21/2020 2:43 PM, Message [id number].Electronically Signed By: CHARLES HENRY MDDate: 02/21/2020 15:37ORIGINALMRI [...] MR images obtained on GE 1.5 Ryann Imp[employer].Comparison: Ct thoracic spine performed same dayContrast: 12 [...] been communicated to MARCELO MARTINS MD via [employer] system on 02/20/2020 7:08 PM, Message [id number].Electronically Signed By: DOMONIQUE RONDON, GLENDALEDate: 02/20/2020 19:09 Name Value Range Interpretation Code Description Data Danielle rce(s) Supporting Document(s) ID Date Data Source [id number] 02/20/2020 07:52:00 AM EST [facility] Name Value Range Interpretation Code Description Data Danielle rce(s) Supporting Document(s) WBC 19.2 x10E3/uL 4.3-10.9 H [facility] spital RBC 3.16 x10E6/uL 4.70-6.20 L [facility] HEMOGLOBIN 7.8 g/dl 13.0-17.0 L [facility] HEMATOCRIT 25.4 % 39.0-50.0 L [facility] MCV 80.4 fl 82.0-98.0 L [facility] al MCH 24.7 pg 27.5-33.5 L [facility] al MCHC 30.7 g/dl 32.0-36.0 L [facility] al RDW 18.3 % 11.5-14.5 H [facility] al PLATELET COUNT 670 x10E3/uL 130-400 H [facility] (Slide estimate appears increased) MPV 8.9 fl 8.6-12.6 [facility] al SEGMENTED NEUTROPHILS 76.0 % 44.0-74.0 H [facility] BAND 0.0 % 0.0-4.0 [facility] al LYMPHOCYTES 12.0 % 15.0-45.0 L [facility] MONOCYTES 12.0 % 2.0-13.0 [facility] al EOSINOPHILS 0.0 % 0.0-6.0 [facility] BASOPHILS 0.0 % 0.0-2.0 [facility] NEUTROPHIL ABSOLUTE 14.6 x10E3/uL 1.4-7.0 H [facility] LYMPHOCYTES ABSOLUTE 2.3 x10E3/uL 1.0-3.4 [facility] MONOCYTE ABSOLUTE 2.3 x10E3/uL 0.2-1.0 H [facility] EOSINOPHIL ABSOLUTE 0.0 x10E3/uL 0.0-0.5 [facility] BASOPHIL ABSOLUTE 0.0 x10E3/uL 0.0-0.2 [facility] POLYCHROMASIA Slight [facility] spital HYPOCHROMIA 1+ A [facility] ANISOCYTOSIS 1+ A [facility] pital MACROCYTOSIS 1+ A [facility] pital POIKILOCYTOSIS 1+ A [facility] ospital OVALOCYTOSIS 1+ A [facility] pital TEARDROP CELLS Occasional [facility] R [facility], [place] [address] * ID Date Data Source [id number] 02/20/2020 07:51:00 AM EST [facility] Name Value Range Interpretation Code Description Data Danielle rce(s) Supporting Document(s) DIFFERENTIAL SCAN PERFORMED [facility] R [facility], Dept of [place] [id number] * ID Date Data Source [id number] 02/20/2020 07:10:00 AM EST [facility] Name Value Range Interpretation Code Description Data Danielle rce(s) Supporting Document(s) ESTIMATED GFR (CALCULATED) [facility] EGFR 127 [facility] >59 mL/min/1.73m2 EGFR, -SLOVENIAN 147 [facility] >59 mL/min/1.63e8Ftma: Persistent reduction for 3 months or more in an eGFR <60 mL/min/1.73m2 defines CKD. Patients with eGFR values >=60 mL/min/1.73m2 may also have CKD if evidence of persistent proteinuria is present. Additional information may be found at [email or web address]. R [facility], Dept of Path [address] [place], [place] [id number] * ID Date Data Source [id number] 02/20/2020 07:10:00 AM [facility] Name Value Range Interpretation Code Description Data Danielle rce(s) Supporting Document(s) GLUCOSE 113 mg/dl 70-100 H [facility] al BUN 11 mg/dl 5-21 [facility] CREATININE, SERUM 0.64 mg/dl 0.60-1.30 [facility] SODIUM 140 mmol/l 136-146 [facility] [place] POTASSIUM 3.4 mmol/l 3.5-5.3 L [facility] [place] CHLORIDE 103 mmol/l 96-109 [facility] [place] CARBON DIOXIDE 25 mmol/l 20-32 [facility] ospital CALCIUM 8.6 mg/dl 8.4-10.4 [facility] BUN/CREATININE RATIO 17.2 6.0-20.0 [facility] ANION GAP 12.0 mmol/l 7.0-16.0 [facility] OSMOLALITY (CALCULATED) 280 mos/kg 280-300 [facility], Dept of Pat h [address] [place], [place] [id number] * ID Date Data Source [id number] 02/20/2020 07:02:00 AM [facility] Name Value Range Interpretation Code Description Data Danielle rce(s) Supporting Document(s) PTT (ON HEPARIN THERAPY) 52.7 seconds 69.0-117.0 L [facility] Values within the normal reference range are reflective of Heparin effectwithin the therapeutic range of 0.2-0.4 Heparin U/ml. R [facility] [address] [place] [address] * ID Date Data Source [id number] 02/21/2020 01:04:00 PM EST [facility] NASAL; SWAB Name Value Range Interpretation Code Description Data Danielle rce(s) Supporting Document(s) MRSA SCREEN BY PCR NEGATIVE NEGATIVE [facility] R [facility] [address] [place] [place] [address] * ID Date Data Source [id number] 02/19/2020 04:21:00 PM EST [facility] Name Value Range Interpretation Code Description Data Danielle rce(s) Supporting Document(s) ESTIMATED GFR (CALCULATED) [facility] EGFR 124 [facility] >59 mL/min/1.73m2 EGFR, -SLOVENIAN 144 [facility] >59 mL/min/1.17j0Upeq: Persistent reduction for 3 months or more in an eGFR <60 mL/min/1.73m2 defines CKD. Patients with eGFR values >=60 mL/min/1.73m2 may also have CKD if evidence of persistent proteinuria is present. Additional information may be found at [email or web address]. R [facility], [facility] [address] [place] [place] [address] * ID Date Data Source [id number] 02/19/2020 04:21:00 PM EST [facility] Name Value Range Interpretation Code Description Data Danielle rce(s) Supporting Document(s) GLUCOSE 115 mg/dl 70-100 H [facility] BUN 12 mg/dl 5-21 [facility] CREATININE, SERUM 0.67 mg/dl 0.60-1.30 [facility] SODIUM 134 mmol/l 136-146 L [facility] [place] POTASSIUM 4.3 mmol/l 3.5-5.3 [facility] [place] CHLORIDE 103 mmol/l 96-109 [facility] [place] CARBON DIOXIDE 18 mmol/l 20-32 L [facility] ospital CALCIUM 8.7 mg/dl 8.4-10.4 [facility] al BUN/CREATININE RATIO 17.9 6.0-20.0 [facility] ANION GAP 13.0 mmol/l 7.0-16.0 [facility] ital OSMOLALITY (CALCULATED) 269 mos/kg 280-300 L [facility] R [facility], Dept of Pat [address] [place] [address] * ID Date Data Source [id number] 02/19/2020 03:00:00 PM EST [facility] NASAL; SWAB Name Value Range Interpretation Code Description Data Danielle rce(s) Supporting Document(s) PTT 46.7 seconds 23.7-35.5 H [facility] pital R [facility], Dept of Pat [address] [place] [address] * ID Date Data Source [id number] 02/19/2020 02:21:00 PM EST [facility] Name Value Range Interpretation Code Description Data Danielle rce(s) Supporting Document(s) SARS coronavirus 2 RNA [facility] This lab was ordered by [facility] and reported by [facility]. ID Date Data Source [id number] 02/19/2020 03:15:00 PM EST [facility] NASAL; SWAB Name Value Range Interpretation Code Description Data Danielle rce(s) Supporting Document(s) SARS-COV-2 ZULY NEGATIVE NEGATIVE [facility] ospital Testing perfo rmed by nucleic acid [...] and/orepidemoilogical information. INFLUENZA A ZULY NEGATIVE NEGATIVE [facility] Testing perfo rmed by nucleic acid amplification. Please refer to SARS-COV-2 result comment for FDA approval and EUA information. INFLUENZA B ZULY NEGATIVE NEGATIVE [facility] Testing perfo rmed by nucleic acid amplification. Please refer to SARS-COV-2 result comment for FDA approval and EUA information. RSV ZULY NEGATIVE NEGATIVE [facility] al Testing perfo rmed by nucleic acid amplification. Please refer to SARS-COV-2 result comment for FDA approval and EUA information. R [facility], Dept of Path [address] [place] [address] * ID Date Data Source [id number] 02/19/2020 01:01:23 PM EST [facility] Ct thoracic spineClinical History: Chest pain. Bacterial [...] been documented for MARCELO MARTINS MD inthe [employer] system on 02/19/2020 12:31 PM, Message [id number].Electronically Signed By: CHARLES HENRY MDDate: 02/19/2020 13:00 Name Value Range Interpretation Code Description Data Danielle rce(s) Supporting Document(s) ID Date Data Source [id number] 02/19/2020 07:08:00 AM EST [facility] Name Value Range Interpretation Code Description Data [facility] rce(s) Supporting Document(s) WBC 20.7 x10E3/uL 4.3-10.9 H [facility] spital RBC 3.20 x10E6/uL 4.70-6.20 L [facility] HEMOGLOBIN 8.0 g/dl 13.0-17.0 L [facility] HEMATOCRIT 26.4 % 39.0-50.0 L [facility] MCV 82.5 fl 82.0-98.0 [facility] MCH 25.0 pg 27.5-33.5 L [facility] MCHC 30.3 g/dl 32.0-36.0 L [facility] RDW 19.0 % 11.5-14.5 H [facility] PLATELET COUNT 543 x10E3/uL 130-400 H [facility] (Slide estimate appears increased) MPV 9.4 fl 8.6-12.6 [facility] SEGMENTED NEUTROPHILS 89.0 % 44.0-74.0 H [facility] BAND 0.0 % 0.0-4.0 [facility] LYMPHOCYTES 7.0 % 15.0-45.0 L [facility] ital MONOCYTES 4.0 % 2.0-13.0 [facility] al EOSINOPHILS 0.0 % 0.0-6.0 [facility] ital BASOPHILS 0.0 % 0.0-2.0 [facility] al NEUTROPHIL ABSOLUTE 18.4 x10E3/uL 1.4-7.0 H [facility] LYMPHOCYTES ABSOLUTE 1.4 x10E3/uL 1.0-3.4 [facility] MONOCYTE ABSOLUTE 0.8 x10E3/uL 0.2-1.0 [facility] EOSINOPHIL ABSOLUTE 0.0 x10E3/uL 0.0-0.5 [facility] BASOPHIL ABSOLUTE 0.0 x10E3/uL 0.0-0.2 [facility] GIANT PLATELETS Occasional [facility] POLYCHROMASIA 1+ A [facility] spital HYPOCHROMIA 1+ A [facility] ANISOCYTOSIS .2+ [facility] pital MICROCYTOSIS 1+ A [facility] pital MACROCYTOSIS Occasional [facility] spital R [facility], [place] [address] * ID Date Data Source [id number] 02/19/2020 07:08:00 AM EST [facility] Name Value Range Interpretation Code Description Data Danielle rce(s) Supporting Document(s) MANUAL DIFFERENTIAL PERFORMED [facility] R [facility], Dept of [address] [address] * ID Date Data Source [id number] 02/19/2020 06:58:00 AM EST [facility] Name Value Range Interpretation Code Description Data Danielle rce(s) Supporting Document(s) DIFFERENTIAL SCAN PERFORMED [facility] R [facility], Dept of [facility] [address] [place] [address] * ID Date Data Source [id number] 02/19/2020 06:57:00 AM EST [facility] Name Value Range Interpretation Code Description Data Danielle rce(s) Supporting Document(s) ESTIMATED GFR (CALCULATED) [facility] EGFR 120 [facility] >59 mL/min/1.73m2 EGFR, -SLOVENIAN 139 [facility] >59 mL/min/1.38t0Pqgh: Persistent reduction for 3 months or more in an eGFR <60 mL/min/1.73m2 defines CKD. Patients with eGFR values >=60 mL/min/1.73m2 may also have CKD if evidence of persistent proteinuria is present. Additional information may be found at [email or web address]. R [facility], Dept of [address] [address] * ID Date Data Source [id number] 02/19/2020 06:57:00 AM [facility] Name Value Range Interpretation Code Description Data [facility] rce(s) Supporting Document(s) MAGNESIUM 1.8 mg/dl 1.7-2.7 [facility] [address] [address] * ID Date Data Source [id number] 02/19/2020 06:57:00 AM [facility] Name Value Range Interpretation Code Description Data Danielle rce(s) Supporting Document(s) GLUCOSE 83 mg/dl 70-100 [facility] BUN 11 mg/dl 5-21 [facility] CREATININE, SERUM 0.73 mg/dl 0.60-1.30 [facility] SODIUM 135 mmol/l 136-146 L [facility] [place] POTASSIUM 4.1 mmol/l 3.5-5.3 [facility] CHLORIDE 103 mmol/l 96-109 [facility] CARBON DIOXIDE 15 mmol/l 20-32 LL [facility] ospital Confirmed on reassay CALCIUM 8.7 mg/dl 8.4-10.4 [facility] BUN/CREATININE RATIO 15.1 6.0-20.0 [facility] ANION GAP 17.0 mmol/l 7.0-16.0 H [facility] OSMOLALITY (CALCULATED) 269 mos/kg 280-300 L [facility], Dept of [place] [id number] * ID Date Data Source [id number] 02/19/2020 02:11:00 AM EST [facility] Name Value Range Interpretation Code Description Data Danielle rce(s) Supporting Document(s) TROPONIN I <0.300 ng/ml [facility] spital Negative: < 0.300 Positive: >=0.300Results obtained using Jacky methodology. Please note thatserial determinations should be monitored using the same methodology. R [facility], [facility] [address] [address] * ID Date Data Source [id number] 02/19/2020 02:05:00 AM [facility] Name Value Range Interpretation Code Description Data Danielle rce(s) Supporting Document(s) ESTIMATED GFR (CALCULATED) [facility] EGFR 124 [facility] >59 mL/min/1.73m2 EGFR, -SLOVENIAN 143 [facility] >59 mL/min/1.83m1Mwyr: Persistent reduction for 3 months or more in an eGFR <60 mL/min/1.73m2 defines CKD. Patients with eGFR values >=60 mL/min/1.73m2 may also have CKD if evidence of persistent proteinuria is present. Additional information may be found at [email or web address]. R [facility], Dept of Path [address] [place] [address] * ID Date Data Source [id number] 02/19/2020 02:05:00 AM [facility] Name Value Range Interpretation Code Description Data Danielle rce(s) Supporting Document(s) GLUCOSE 104 mg/dl 70-100 H [facility] BUN 10 mg/dl 5-21 [facility] CREATININE, SERUM 0.68 mg/dl 0.60-1.30 [facility] SODIUM 134 mmol/l 136-146 L [facility] [place] POTASSIUM 4.0 mmol/l 3.5-5.3 [facility] [place] CHLORIDE 101 mmol/l 96-109 [facility] CARBON DIOXIDE 20 mmol/l 20-32 [facility] ospital ALBUMIN 3.1 g/dl 3.5-5.0 L [facility] CALCIUM 8.9 mg/dl 8.4-10.4 [facility] PHOSPHOROUS 3.9 mg/dl 2.8-4.7 [facility], Dept of Pat h [address] [place] [address] * ID Date Data Source [id number] 02/19/2020 02:03:00 AM [facility] Name Value Range Interpretation Code Description Data Danielle rce(s) Supporting Document(s) LACTIC ACID 0.8 mmol/L 0.5-2.2 [facility] pital R [facility], Dept of [facility] [address] [place] [address] * ID Date Data Source [id number] 02/19/2020 01:25:27 PM [facility] CT of the Abdomen and PelvisHISTORY: Rul [...] rce(s) Supporting Document(s) ID Date Data Source [id number] 02/19/2020 01:53:19 PM EST [facility] CT CERVICAL SPINE:CLINICAL HISTORY: Pain . Rule [...] e(s) Supporting Document(s) ID Date Data Source [id number] 02/19/2020 01:06:27 PM [facility] CT chest/pulmonary angiogramHistory: Brenda st pain. Endocarditis. [...] been documented for RODRIGUEZ SHOEMAKER MD in [employer] system on 02/19/2020 12:33 PM, Message [id number].Electronically Signed By: CHARLES HENRY MDDate: 02/19/2020 13:05 Name Value Range Interpretation Code Description Data Danielle rce(s) Supporting Document(s) ID Date Data Source [id number] 02/19/2020 06:52:28 AM [facility] Vent Rate: 136 bpmRR Interval: -1 msecPR Interval: 126 msecQRS Duration: 86 msecQT Interval: 290 msecQTC Interval: 436 msecP-R-T [place]: 63 - 83 - 32 degreessinus tachycardiavertical axislow QRS voltage in extremity leadsBorderline ECGPossible precordial lead placementStudy Date: [id number] Signed By: CRUZ RONDON DARROWDate: 02/19/2020 06:52 Name Value Range Interpretation Code Description Data Danielle rce(s) Supporting Document(s) ID Date Data Source [id number] 02/18/2020 12:54:00 PM [facility] Name Value Range Interpretation Code Description Data Danielle rce(s) Supporting Document(s) VANCOMYCIN TROUGH 17.1 ug/ml 10.0-20.0 [facility], Dept of Pat [address] [place] [id number] * ID Date Data Source [id number] 02/18/2020 08:54:00 AM [facility] NASAL; SWAB Name Value Range Interpretation Code Description Data Danielle rce(s) Supporting Document(s) MANUAL DIFFERENTIAL PERFORMED [facility], [facility] [address] [place] [address] * ID Date Data Source [id number] 02/18/2020 08:54:00 AM EST [facility] NASAL; SWAB Name Value Range Interpretation Code Description Data Danielle rce(s) Supporting Document(s) WBC 21.7 x10E3/uL 4.3-10.9 H [facility] spital RBC 3.24 x10E6/uL 4.70-6.20 L [facility] spital HEMOGLOBIN 7.9 g/dl 13.0-17.0 [facility] HEMATOCRIT 26.1 % 39.0-50.0 L [facility] MCV 80.6 fl 82.0-98.0 L [facility] al MCH 24.4 pg 27.5-33.5 L [facility] al MCHC 30.3 g/dl 32.0-36.0 L [facility] al RDW 18.8 % 11.5-14.5 H [facility] al PLATELET COUNT 681 x10E3/uL 130-400 H [facility] (Slide estimate appears increased) MPV 8.8 fl 8.6-12.6 [facility] al SEGMENTED NEUTROPHILS 79.0 % 44.0-74.0 H [facility] BAND 0.0 % 0.0-4.0 [facility] al LYMPHOCYTES 14.0 % 15.0-45.0 L [facility] ATYPICAL LYMPHOCYTE 1.0 % A [facility] MONOCYTES 5.0 % 2.0-13.0 [facility] al EOSINOPHILS 1.0 % 0.0-6.0 [facility] BASOPHILS 0.0 % 0.0-2.0 [facility] al NEUTROPHIL ABSOLUTE 17.1 x10E3/uL 1.4-7.0 H [facility] LYMPHOCYTES ABSOLUTE 3.0 x10E3/uL 1.0-3.4 [facility] MONOCYTE ABSOLUTE 1.1 x10E3/uL 0.2-1.0 H [facility] EOSINOPHIL ABSOLUTE 0.2 x10E3/uL 0.0-0.5 [facility] BASOPHIL ABSOLUTE 0.0 x10E3/uL 0.0-0.2 [facility] POLYCHROMASIA 1+ A [facility] spital HYPOCHROMIA 1+ A [facility] ital ANISOCYTOSIS 1+ A [facility] pital MICROCYTOSIS 1+ A [facility] pital R [facility] [address] [address] * ID Date Data Source [id number] 02/18/2020 08:31:00 AM EST [facility] NASAL; SWAB Name Value Range Interpretation Code Description Data Danielle rce(s) Supporting Document(s) ESTIMATED GFR (CALCULATED) [facility] EGFR 123 [facility] >59 mL/min/1.73m2 EGFR, -SLOVENIAN 143 [facility] >59 mL/min/1.23s8Wrcg: Persistent reduction for 3 months or more in an eGFR <60 mL/min/1.73m2 defines CKD. Patients with eGFR values >=60 mL/min/1.73m2 may also have CKD if evidence of persistent proteinuria is present. Additional information may be found at [email or web address]. R [facility], [facility] [place] [address] * ID Date Data Source [id number] 02/18/2020 08:31:00 AM EST [facility] NASAL; SWAB Name Value Range Interpretation Code Description Data Danielle rce(s) Supporting Document(s) MAGNESIUM 2.0 mg/dl 1.7-2.7 [facility] R [facility], [facility] [address] [address] * ID Date Data Source [id number] 02/18/2020 08:31:00 AM EST [facility] NASAL; SWAB Name Value Range Interpretation Code Description Data Danielle rce(s) Supporting Document(s) GLUCOSE 117 mg/dl 70-100 H [facility] BUN 11 mg/dl 5-21 [facility] CREATININE, SERUM 0.69 mg/dl 0.60-1.30 [facility] SODIUM 142 mmol/l 136-146 [facility] POTASSIUM 3.7 mmol/l 3.5-5.3 [facility] CHLORIDE 108 mmol/l 96-109 [facility] CARBON DIOXIDE 21 mmol/l 20-32 [facility] ospital ALBUMIN 3.0 g/dl 3.5-5.0 L [facility] PROTEIN, TOTAL 6.9 g/dl 6.4-8.2 [facility] ospital CALCIUM 8.8 mg/dl 8.4-10.4 [facility] al ALKALINE PHOSPHATASE 127 U/l 10-118 H [facility] SGOT (AST) 14 U/l 3-40 [facility] SGPT (ALT) 31 U/l 7-50 [facility] BILIRUBIN, TOTAL 0.30 mg/dl 0.30-1.20 [facility] BUN/CREATININE RATIO 15.9 6.0-20.0 [facility] GLOBULIN 3.9 g/dl 2.3-3.5 H [facility] al ANION GAP 13.0 mmol/l 7.0-16.0 [facility] OSMOLALITY (CALCULATED) 284 mos/kg 280-300 [facility] A/G RATIO 0.8 1.0-2.0 L [facility] R [facility], [place] [address] * ID Date Data Source [id number] 02/18/2020 03:55:00 AM EST [facility] Name Value Range Interpretation Code Description Data [facility] rce(s) Supporting Document(s) SARS coronavirus 2 RNA [facility] [facility] This lab [facility] and reported by [facility] ID Date Data Source [id number] 02/18/2020 04:37:00 AM EST [facility] NASAL; SWAB Name Value Range Interpretation Code Description Data Danielle rce(s) Supporting Document(s) SARS-COV-2 ZULY NEGATIVE NEGATIVE [facility] ospital Testing perfo rmed by nucleic acid [...] and/orepidemoilogical information. INFLUENZA A ZULY NEGATIVE NEGATIVE [facility] Testing perfo rmed by nucleic acid amplification. Please refer to SARS-COV-2 result comment for FDA approval and EUA information. INFLUENZA B ZULY NEGATIVE NEGATIVE [facility] Testing perfo rmed by nucleic acid amplification. Please refer to SARS-COV-2 result comment for FDA approval and EUA information. RSV ZULY NEGATIVE NEGATIVE [facility] al Testing perfo rmed by nucleic acid amplification. Please refer to SARS-COV-2 result comment for FDA approval and EUA information. R [facility], [place] [address] * ID Date Data Source [id number] 02/17/2020 08:07:00 AM EST [facility] Name Value Range Interpretation Code Description Data Danielle rce(s) Supporting Document(s) WBC 18.5 x10E3/uL 4.3-10.9 H [facility] spital RBC 3.63 x10E6/uL 4.70-6.20 L [facility] HEMOGLOBIN 9.0 g/dl 13.0-17.0 L [facility] HEMATOCRIT 29.4 % 39.0-50.0 L [facility] MCV 81.0 fl 82.0-98.0 L [facility] MCH 24.8 pg 27.5-33.5 L [facility] MCHC 30.6 g/dl 32.0-36.0 L [facility] RDW 19.1 % 11.5-14.5 H [facility] al PLATELET COUNT 614 x10E3/uL 130-400 H [facility] (Slide estimate appears increased) MPV 9.0 fl 8.6-12.6 [facility] SEGMENTED NEUTROPHILS 77.0 % 44.0-74.0 H [facility] BAND 0.0 % 0.0-4.0 [facility] LYMPHOCYTES 12.0 % 15.0-45.0 L [facility] MONOCYTES 10.0 % 2.0-13.0 [facility] EOSINOPHILS 1.0 % 0.0-6.0 [facility] ital BASOPHILS 0.0 % 0.0-2.0 [facility] al NEUTROPHIL ABSOLUTE 14.2 x10E3/uL 1.4-7.0 H [facility] LYMPHOCYTES ABSOLUTE 2.2 x10E3/uL 1.0-3.4 [facility] MONOCYTE ABSOLUTE 1.9 x10E3/uL 0.2-1.0 H [facility] EOSINOPHIL ABSOLUTE 0.2 x10E3/uL 0.0-0.5 [facility] BASOPHIL ABSOLUTE 0.0 x10E3/uL 0.0-0.2 [facility] HYPERSEGMENTED NEUTS [facility] LARGE PLATELETS 1+ A [facility] POLYCHROMASIA 1+ A [facility] spital HYPOCHROMIA 1+ A [facility] ANISOCYTOSIS 1+ A [facility] pital MICROCYTOSIS 1+ A [facility] pital R [facility], Dept of [address] [address] * ID Date Data Source [id number] 02/17/2020 08:01:00 AM [facility] Name Value Range Interpretation Code Description Data Danielle rce(s) Supporting Document(s) C-REACTIVE PROTEIN 179.7 mg/L 0.0-5.[address] [facility] R [facility], Dept of [address] [place] [address] * ID Date Data Source [id number] 02/17/2020 07:59:00 AM [facility] Name Value Range Interpretation Code Description Data Danielle rce(s) Supporting Document(s) ESTIMATED GFR (CALCULATED) [facility] EGFR 115 [facility] >59 mL/min/1.73m2 EGFR, -SLOVENIAN 133 [facility] >59 mL/min/1.24h9Raxj: Persistent reduction for 3 months or more in an eGFR <60 mL/min/1.73m2 defines CKD. Patients with eGFR values >=60 mL/min/1.73m2 may also have CKD if evidence of persistent proteinuria is present. Additional information may be found at [email or web address]. R [facility], Dept of Path [address] [place] [address] * ID Date Data Source [id number] 02/17/2020 07:59:00 AM EST [facility] Name Value Range Interpretation Code Description Data Danielle rce(s) Supporting Document(s) PROTEIN, TOTAL 7.1 g/dl 6.4-8.2 [facility] ospital ALKALINE PHOSPHATASE 146 U/l 10-118 H [facility] SGOT (AST) 16 U/l 3-40 [facility] SGPT (ALT) 40 U/l 7-50 [facility] BILIRUBIN, TOTAL 0.26 mg/dl 0.30-1.20 L [facility] BILIRUBIN, DIRECT 0.07 mg/dl 0.00-0.40 [facility] BILIRUBIN, INDIRECT 0.19 mg/dl 0.10-1.10 [facility], Dept of [place] [id number] * ID Date Data Source [id number] 02/17/2020 07:59:00 AM [facility] Name Value Range Interpretation Code Description Data Danielle rce(s) Supporting Document(s) GLUCOSE 95 mg/dl 70-100 [facility] BUN 15 mg/dl 5-21 [facility] CREATININE, SERUM 0.82 mg/dl 0.60-1.30 [facility] SODIUM 140 mmol/l 136-146 [facility] POTASSIUM 4.2 mmol/l 3.5-5.3 [facility] CHLORIDE 106 mmol/l 96-109 [facility] CARBON DIOXIDE 20 mmol/l 20-32 [facility] ospital ALBUMIN 3.2 g/dl 3.5-5.0 L [facility] CALCIUM 8.8 mg/dl 8.4-10.4 [facility] PHOSPHOROUS 4.6 mg/dl 2.8-4.7 [facility], Dept of [place] [id number] * ID Date Data Source [id number] 02/17/2020 07:37:00 AM EST [facility] Name Value Range Interpretation Code Description Data Danielle rce(s) Supporting Document(s) DIFFERENTIAL SCAN PERFORMED [facility] R [facility] [address] [address] * ID Date Data Source [id number] 02/22/2020 03:45:00 AM [facility] [address] [place] [address] r [facility], [facility] OF [address] [address] Site: RPERP Collected: 02/17/20 02:59 Marvin Perez E N T S PERIPHERAL; BLOODBLOOD CULTURE #2 FINAL 02/22/20 03:45 R104/24/19 No growth after 5 days. Name Value Range Interpretation Code Description Data [facility] Supporting Document(s) ID Date Data Source [id number] 02/22/2020 03:45:00 AM [facility] [address] [place] [address] r [facility], [facility] OF [address] [address] Site: RPERP Collected: 02/17/20 02:59 Marvin Perez E N T S PERIPHERAL; BLOODBLOOD CULTURE #1 FINAL 02/22/20 03:45 R104/24/19 No growth after 5 days. Name Value Range Interpretation Code Description Data Danielle rce(s) Supporting Document(s) ID Date Data Source [id number] 02/16/2020 09:29:00 PM [facility] Name Value Range Interpretation Code Description Data Danielle e(s) Supporting Document(s) VANCOMYCIN TROUGH 18.6 ug/ml 10.0-20.0 [facility] R [facility], Dept of [address] [address] * ID Date Data Source [id number] 02/16/2020 07:16:00 AM [facility] Name Value Range Interpretation Code Description Data Danielle rce(s) Supporting Document(s) ESTIMATED GFR (CALCULATED) [facility] EGFR 128 [facility] >59 mL/min/1.73m2 EGFR, -SLOVENIAN 148 [facility] >59 mL/min/1.30g9Igbh: Persistent reduction for 3 months or more in an eGFR <60 mL/min/1.73m2 defines CKD. Patients with eGFR values >=60 mL/min/1.73m2 may also have CKD if evidence of persistent proteinuria is present. Additional information may be found at [email or web address]. R [facility], Dept of [place] [id number] * ID Date Data Source [id number] 02/16/2020 07:16:00 AM [facility] Name Value Range Interpretation Code Description Data Danielle rce(s) Supporting Document(s) PROTEIN, TOTAL 7.1 g/dl 6.4-8.2 [facility] ospital ALKALINE PHOSPHATASE 159 U/l 10-118 H [facility] SGOT (AST) 23 U/l 3-40 [facility] SGPT (ALT) 48 U/l 7-50 [facility] BILIRUBIN, TOTAL 0.18 mg/dl 0.30-1.20 L [facility] BILIRUBIN, DIRECT 0.03 mg/dl 0.00-0.40 [facility] BILIRUBIN, INDIRECT 0.15 mg/dl 0.10-1.10 [facility] [address] [place] [id number] * ID Date Data Source [id number] 02/16/2020 07:16:00 AM [facility] Name Value Range Interpretation Code Description Data Danielle rce(s) Supporting Document(s) GLUCOSE 104 mg/dl 70-100 H [facility] BUN 15 mg/dl 5-21 [facility] CREATININE, SERUM 0.63 mg/dl 0.60-1.30 [facility] SODIUM 135 mmol/l 136-146 L [facility] POTASSIUM 4.2 mmol/l 3.5-5.3 [facility] CHLORIDE 104 mmol/l 96-109 [facility] CARBON DIOXIDE 18 mmol/l 20-32 L [facility] ospital ALBUMIN 3.0 g/dl 3.5-5.0 L [facility] CALCIUM 8.9 mg/dl 8.4-10.4 [facility] PHOSPHOROUS 3.4 mg/dl 2.8-4.7 [facility], Dept of [address] [address] * ID Date Data Source [id number] 02/16/2020 07:13:00 AM [facility] Name Value Range Interpretation Code Description Data Danielle rce(s) Supporting Document(s) ESTIMATED GFR (CALCULATED) [facility] EGFR 124 [facility] >59 mL/min/1.73m2 EGFR, -SLOVENIAN 144 [facility] >59 mL/min/1.19l7Gnok: Persistent reduction for 3 months or more in an eGFR <60 mL/min/1.73m2 defines CKD. Patients with eGFR values >=60 mL/min/1.73m2 may also have CKD if evidence of persistent proteinuria is present. Additional information may be found at [email or web address]. R [facility], Dept of [address] [address] * ID Date Data Source [id number] 02/16/2020 07:13:00 AM [facility] Name Value Range Interpretation Code Description Data Danielle rce(s) Supporting Document(s) C-REACTIVE PROTEIN 166.7 mg/L 0.0-5.[address] [facility] R [facility], Dept of [facility] [address] [place] [address] * ID Date Data Source [id number] 02/16/2020 07:13:00 AM [facility] Name Value Range Interpretation Code Description Data Danielle rce(s) Supporting Document(s) MAGNESIUM 1.9 mg/dl 1.7-2.7 [facility] al R [facility], [place] [address] * ID Date Data Source [id number] 02/16/2020 07:13:00 AM EST [facility] Name Value Range Interpretation Code Description Data Danielle rce(s) Supporting Document(s) GLUCOSE 106 mg/dl 70-100 H [facility] al BUN 16 mg/dl 5-21 [facility] CREATININE, SERUM 0.67 mg/dl 0.60-1.30 [facility] SODIUM 136 mmol/l 136-146 [facility] POTASSIUM 4.7 mmol/l 3.5-5.3 [facility] CHLORIDE 104 mmol/l 96-109 [facility] CARBON DIOXIDE 18 mmol/l 20-32 L [facility] ospital ALBUMIN 3.4 g/dl 3.5-5.0 L [facility] PROTEIN, TOTAL 6.7 g/dl 6.4-8.2 [facility] ospital CALCIUM 8.9 mg/dl 8.4-10.4 [facility] ALKALINE PHOSPHATASE 162 U/l 10-118 H [facility] SGOT (AST) 27 U/l 3-40 [facility] SGPT (ALT) 51 U/l 7-50 H [facility] BILIRUBIN, TOTAL 0.19 mg/dl 0.30-1.20 L [facility] BUN/CREATININE RATIO 23.9 6.0-20.0 H [facility] GLOBULIN 3.3 g/dl 2.3-3.5 [facility] ANION GAP 14.0 mmol/l 7.0-16.0 [facility] OSMOLALITY (CALCULATED) 274 mos/kg 280-300 L [facility] A/G RATIO 1.0 1.0-2.0 [facility] R [facility], Dept of [place] [id number] * ID Date Data Source [id number] 02/16/2020 06:53:00 AM EST [facility] Name Value Range Interpretation Code Description Data Danielle rce(s) Supporting Document(s) MANUAL DIFFERENTIAL PERFORMED [facility] R [facility], [facility] h [address] [place] [place] [address] * ID Date Data Source [id number] 02/16/2020 06:53:00 AM EST [facility] Name Value Range Interpretation Code Description Data Danielle rce(s) Supporting Document(s) WBC 21.1 x10E3/uL 4.3-10.9 H [facility] spital RBC 3.59 x10E6/uL 4.70-6.20 L [facility] spital HEMOGLOBIN 8.9 g/dl 13.0-17.0 L [facility] HEMATOCRIT 29.0 % 39.0-50.0 L [facility] MCV 80.8 fl 82.0-98.0 L [facility] al MCH 24.8 pg 27.5-33.5 L [facility] MCHC 30.7 g/dl 32.0-36.0 L [facility] RDW 19.1 % 11.5-14.5 H [facility] al PLATELET COUNT 500 x10E3/uL 130-400 H [facility] (Slide estimate appears increased) MPV 9.3 fl 8.6-12.6 [facility] SEGMENTED NEUTROPHILS 83.0 % 44.0-74.0 H [facility] BAND 0.0 % 0.0-4.0 [facility] LYMPHOCYTES 15.0 % 15.0-45.0 [facility] MONOCYTES 2.0 % 2.0-13.0 [facility] al EOSINOPHILS 0.0 % 0.0-6.0 [facility] BASOPHILS 0.0 % 0.0-2.0 [facility] NEUTROPHIL ABSOLUTE 17.5 x10E3/uL 1.4-7.0 H [facility] LYMPHOCYTES ABSOLUTE 3.2 x10E3/uL 1.0-3.4 [facility] MONOCYTE ABSOLUTE 0.4 x10E3/uL 0.2-1.0 [facility] EOSINOPHIL ABSOLUTE 0.0 x10E3/uL 0.0-0.5 [facility] BASOPHIL ABSOLUTE 0.0 x10E3/uL 0.0-0.2 [facility] LARGE PLATELETS 1+ A [facility] ANISOCYTOSIS 2+ [facility] MICROCYTOSIS 1+ A [facility] MACROCYTOSIS 1+ A [facility] pital R [facility], Dept of [address] [address] * ID Date Data Source [id number] 02/16/2020 06:49:00 AM EST [facility] Name Value Range Interpretation Code Description Data Danielle rce(s) Supporting Document(s) DIFFERENTIAL SCAN PERFORMED [facility], Dept [facility] [address] [place] [place] [address] * ID Date Data Source [id number] 02/15/2020 02:47:00 PM [facility] Name Value Range Interpretation Code Description Data Danielle rce(s) Supporting Document(s) VANCOMYCIN TROUGH 12.8 ug/ml 10.0-20.0 [facility], Dept [facility] h [address] [place] [address] * ID Date Data Source [id number] 02/15/2020 07:55:00 AM EST [facility] Name Value Range Interpretation Code Description Data Danielle rce(s) Supporting Document(s) ESTIMATED GFR (CALCULATED) [facility] EGFR 124 [facility] >59 mL/min/1.73m2 EGFR, -SLOVENIAN 143 [facility] >59 mL/min/1.97e3Qgnk: Persistent reduction for 3 months or more in an eGFR <60 mL/min/1.73m2 defines CKD. Patients with eGFR values >=60 mL/min/1.73m2 may also have CKD if evidence of persistent proteinuria is present. Additional information may be found at [email or web address]. R [facility], Dept of Path [address] [place] [address] * ID Date Data Source [id number] 02/15/2020 07:55:00 AM [facility] Name Value Range Interpretation Code Description Data Danielle rce(s) Supporting Document(s) PROTEIN, TOTAL 7.3 g/dl 6.4-8.2 [facility] ospital ALKALINE PHOSPHATASE 205 U/l 10-118 H [facility] SGOT (AST) 21 U/l 3-40 [facility] SGPT (ALT) 65 U/l 7-50 H [facility] BILIRUBIN, TOTAL 0.13 mg/dl 0.30-1.20 L [facility] BILIRUBIN, DIRECT 0.06 mg/dl 0.00-0.40 [facility] BILIRUBIN, INDIRECT 0.07 mg/dl 0.10-1.10 L [facility] R [facility], [facility] [place] [id number] * ID Date Data Source [id number] 02/15/2020 07:55:00 AM EST [facility] Name Value Range Interpretation Code Description Data Danielle rce(s) Supporting Document(s) GLUCOSE 141 mg/dl 70-100 H [facility] BUN 16 mg/dl 5-21 [facility] CREATININE, SERUM 0.68 mg/dl 0.60-1.30 [facility] SODIUM 138 mmol/l 136-146 [facility] POTASSIUM 4.4 mmol/l 3.5-5.3 [facility] CHLORIDE 103 mmol/l 96-109 [facility] CARBON DIOXIDE 23 mmol/l 20-32 [facility] ospital ALBUMIN 3.5 g/dl 3.5-5.0 [facility] CALCIUM 9.0 mg/dl 8.4-10.4 [facility] PHOSPHOROUS 3.7 mg/dl 2.8-4.7 [facility], Dept of [place] [id number] * ID Date Data Source [id number] 02/15/2020 07:50:00 AM EST [facility] Name Value Range Interpretation Code Description Data Danielle rce(s) Supporting Document(s) WBC 15.3 x10E3/uL 4.3-10.9 H [facility] spital RBC 3.76 x10E6/uL 4.70-6.20 L [facility] HEMOGLOBIN 9.3 g/dl 13.0-17.0 L [facility] HEMATOCRIT 29.9 % 39.0-50.0 L [facility] MCV 79.5 fl 82.0-98.0 L [facility] al MCH 24.7 pg 27.5-33.5 L [facility] MCHC 31.1 g/dl 32.0-36.0 L [facility] RDW 19.1 % 11.5-14.5 H [facility] PLATELET COUNT 542 x10E3/uL 130-400 H [facility] (Slide estimate appears increased) MPV 9.1 fl 8.6-12.6 [facility] SEGMENTED NEUTROPHILS 74.0 % 44.0-74.0 [facility] BAND 0.0 % 0.0-4.0 [facility] al LYMPHOCYTES 13.0 % 15.0-45.0 L [facility] MONOCYTES 11.0 % 2.0-13.0 [facility] EOSINOPHILS 2.0 % 0.0-6.0 [facility] BASOPHILS 0.0 % 0.0-2.0 [facility] NEUTROPHIL ABSOLUTE 11.3 x10E3/uL 1.4-7.0 H [facility] LYMPHOCYTES ABSOLUTE 2.0 x10E3/uL 1.0-3.4 [facility] MONOCYTE ABSOLUTE 1.7 x10E3/uL 0.2-1.0 H [facility] EOSINOPHIL ABSOLUTE 0.3 x10E3/uL 0.0-0.5 [facility] BASOPHIL ABSOLUTE 0.0 x10E3/uL 0.0-0.2 [facility] ANISOCYTOSIS 1+ A [facility] pital MICROCYTOSIS 1+ A [facility] pital R [facility], [place] [address] * ID Date Data Source [id number] 02/15/2020 07:43:00 AM EST [facility] Name Value Range Interpretation Code Description Data Danielle rce(s) Supporting Document(s) DIFFERENTIAL SCAN PERFORMED [facility] R [facility], [place] [address] * ID Date Data Source [id number] 02/15/2020 07:29:00 AM EST [facility] Name Value Range Interpretation Code Description Data Danielle rce(s) Supporting Document(s) C-REACTIVE PROTEIN 181.9 mg/L 0.0-5.[address] [facility] R [facility], [facility] [address] [place] [address] * ID Date Data Source [id number] 02/15/2020 07:32:32 AM EST [facility] EXAM:CT CHEST W IV CONTRASTCLINICAL HIST ORY:Fever. [...] Study initially interpreted by [employer] education intern.MEDIASTINUM: There are bilateral hilar and paratracheal lymph [...] rce(s) Supporting Document(s) ID Date Data Source [id number] 02/16/2020 09:03:00 AM EST [facility] Transthoracic Echocardiographic ReportHt (Cm): 157 Wt(Kg): 59.9 BSA: 1.62Accession #: [id number] Rate: 100Quality: The study images were of [...] Pressure 3.00 mmHgRVSP 26.80Doppler Value RangeStudy Date: [id number] Signed By: UMU WILSON MDDate: 02/16/2020 09:02 Name Value Range Interpretation Code Description Data Danielle rce(s) Supporting Document(s) ID Date Data Source [id number] 02/18/2020 07:05:00 AM EST [facility] Name Value Range Interpretation Code Description Data Danielle rce(s) Supporting Document(s) AEROBIC CULTURE SOURCE picc line tip [facility] AEROBIC CULTURE Final report [facility] RESULT 1 SEE BELOW [facility] PATIENT: TRINA CAICEDO LOC: [id number],2BILL# : [id number] : 1985 SEX: MORDERED BY: CHRIS CAMACHO ORDERED : 02/14/2020 14:28 COLLECTED: 02/14/2020 14:30ORDER : [id number] RECEIVED : 02/14/2020 14:47 TEST NAME RESULT UNITS RANGES ABN FL ST SITEAEROBIC CULTURE SOURCE picc line tip FAEROBIC CULTURE Final report F RN// RN-LabCodon Lander[facility] [id number]//RESULT 1 SEE BELOW F RN// No growth in 56 - 72 hours.// RA-LabCodon Landeros [facility] [id number]// -------- ID Date Data Source [id number] 02/14/2020 08:01:00 AM EST [facility] Name Value Range Interpretation Code Description Data Danielle rce(s) Supporting Document(s) WBC 13.1 x10E3/uL 4.3-10.9 H [facility] spital RBC 4.21 x10E6/uL 4.70-6.20 L [facility] spital HEMOGLOBIN 10.4 g/dl 13.0-17.0 [facility] HEMATOCRIT 33.9 % 39.0-50.0 L [facility] MCV 80.5 fl 82.0-98.0 L [facility] al MCH 24.7 pg 27.5-33.5 L [facility] al MCHC 30.7 g/dl 32.0-36.0 L [facility] al RDW 19.4 % 11.5-14.5 H [facility] al PLATELET COUNT 379 x10E3/uL 130-400 [facility] (Slide estimate appears adequate) MPV 9.7 fl 8.6-12.6 [facility] al SEGMENTED NEUTROPHILS 76.0 % 44.0-74.0 H [facility] BAND 0.0 % 0.0-4.0 [facility] al LYMPHOCYTES 14.0 % 15.0-45.0 L [facility] MONOCYTES 9.0 % 2.0-13.0 [facility] al EOSINOPHILS 1.0 % 0.0-6.0 [facility] BASOPHILS 0.0 % 0.0-2.0 [facility] al NEUTROPHIL ABSOLUTE 10.0 x10E3/uL 1.4-7.0 H [facility] LYMPHOCYTES ABSOLUTE 1.8 x10E3/uL 1.0-3.4 [facility] MONOCYTE ABSOLUTE 1.2 x10E3/uL 0.2-1.0 H [facility] EOSINOPHIL ABSOLUTE 0.1 x10E3/uL 0.0-0.5 [facility] BASOPHIL ABSOLUTE 0.0 x10E3/uL 0.0-0.2 [facility] R [facility], [place] [address] * ID Date Data Source [id number] 02/14/2020 07:58:00 AM EST [facility] Name Value Range Interpretation Code Description Data Danielle rce(s) Supporting Document(s) DIFFERENTIAL SCAN PERFORMED [facility], Dept of [address] [address] * ID Date Data Source [id number] 02/14/2020 07:38:00 AM EST [facility] Name Value Range Interpretation Code Description Data Danielle rce(s) Supporting Document(s) ESTIMATED GFR (CALCULATED) [facility] EGFR 123 [facility] >59 mL/min/1.73m2 EGFR, -SLOVENIAN 143 [facility] >59 mL/min/1.91d8Wgbp: Persistent reduction for 3 months or more in an eGFR <60 mL/min/1.73m2 defines CKD. Patients with eGFR values >=60 mL/min/1.73m2 may also have CKD if evidence of persistent proteinuria is present. Additional information may be found at [email or web address]. R [facility], Dept of Path [address] [place] [address] * ID Date Data Source [id number] 02/14/2020 07:38:00 AM [facility] Name Value Range Interpretation Code Description Data Danielle rce(s) Supporting Document(s) PROTEIN, TOTAL 7.8 g/dl 6.4-8.2 [facility] ospital ALKALINE PHOSPHATASE 263 U/l 10-118 H [facility] SGOT (AST) 43 U/l 3-40 H [facility] SGPT (ALT) 102 U/l 7-50 H [facility] BILIRUBIN, TOTAL 0.19 mg/dl 0.30-1.20 L [facility] BILIRUBIN, DIRECT 0.06 mg/dl 0.00-0.40 [facility] BILIRUBIN, INDIRECT 0.13 mg/dl 0.10-1.10 [facility], Dept of [facility] [address] [place] [address] * ID Date Data Source [id number] 02/14/2020 07:38:00 AM [facility] Name Value Range Interpretation Code Description Data Danielle rce(s) Supporting Document(s) GLUCOSE 94 mg/dl 70-100 [facility] BUN 23 mg/dl 5-21 H [facility] CREATININE, SERUM 0.69 mg/dl 0.60-1.30 [facility] SODIUM 137 mmol/l 136-146 [facility] POTASSIUM 4.7 mmol/l 3.5-5.3 [facility] CHLORIDE 103 mmol/l 96-109 [facility] CARBON DIOXIDE 20 mmol/l 20-32 [facility] o[facility]ital ALBUMIN 3.5 g/dl 3.5-5.0 [facility] CALCIUM 8.9 mg/dl 8.4-10.4 [facility] PHOSPHOROUS 4.1 mg/dl 2.8-4.7 [facility] R [facility], Dept of Formerly [facility] [address] [place] [address] * ID Date Data Source [id number] 02/13/2020 01:56:00 PM [facility] PAGE: [address] [place], [place] [address]LAN [id number] [facility] [address] REC NUM: [id number] : 1985 Med Reconciliation Patient: TIBURCIO SINGLETARY Medication Reconciliation Report [facility]: [id number] [place] [id number] [phone], MRegistration Date/Time: 02/13/2020 13:56 Weight: 58.9 kgHeight/Length: [...] rce(s) Supporting Document(s) ID Date Data Source [id number] 02/13/2020 01:56:00 PM [facility] PAGE: [address] [place] [address] , [place] [address] [facility] REC NUM: [id number] : 1985 Physician Discharge Report Clinical Report - [facility] [address] [place] [address] Patient: TIBURCIO SINGLETARY : M : 1985 [...] endocarditis presents to the ER from [facility] for evaluation of a PICC line malfunction and elevated white blood cell count. Also reports mild SOB. [facility] Admitted in [place] for 2 weeks prior to that for endocarditis tx. States he receives 2 g Rocephin IV daily. Scheduled to receive abx until 02/26/20.). REVIEW OF SYSTEMSNo fever, nausea or vomiting. He has had difficulty breathing. All other systems reviewed and are negative. PAST HISTORYSee nurses notes. Problems:Endocarditis. Medications:Ventolin HFA Inhalation 2 puffs, q4h as needed, sob. PAGE: [facility] TIBURCIO SINGLETARY[address] [facility] [address] REC NUM: [id number] : 1985 Ramelteon Oral (Tablet 8 mg) [...] results Test Result Flag Units (Reference) PAGE: [facility] [address] [place] [address] [facility] NUM: [id number] : 1985 SARS-COV-2 ZULY NEGATIVE (NEGATIVE) T [...] GFR (CALCULATED) EGFR 122 >59 mL/min/1.73m2 EGFR, -SLOVENIAN 142 >59 mL/min/1.63y0Sihs: Persistent reduction for 3 months or more in an eGFR <60 mL/min/1.73m2 PAGE: 4[facility] R[address] [place] [address] , [place] [address] [facility] REC NUM: [id number] : 1985 defines CKD. Patients with eGFR values >=60 mL/min/1.73m2 may also have CKD if evidence of persistent proteinuria is present. Additional information may be found at [email or web address].org/professionals/kdoqi. DIFFERENTIAL SCAN: (JOHN: 02/13/2020 14:34)( MsgRcvd 02/13/2020 15:22) Final results Test Result Flag Units (Reference)DIFFERENTIAL SCAN DIFF REQUIRED AB Above is a corrected result. Previously reported on ( [facility] 02/13/2020 15:17) as:DIFFERENTIAL SCAN PERFORMED MANUAL DIFFERENTIAL: (JOHN: 02/13/2020 14:34)( MsgRcvd 02/13/2020 15:24) Final results Test Result Flag Units (Reference)MANUAL DIFFERENTIAL PERFORMED ELECTROCARDIOGRAM-EMERGENCY DEPT: (JOHN: 02/13/2020 14:26)( MsgRcvd 02/13/2020 15:19) Final results Test Result Flag Units (Reference)-- Vent Rate: 105 bpmRR Interval: 571 msecPR Interval: 141 m secQRS Duration: 79 msecQT Interval: 343 msecQTC Interval: 454 msecP-R-T [place]: 54 - 44 - 23 degrees""Sinus tachycardia...rate> 99Probable left atrial enlargement...P >50mS, <-0.10mV V1""Study Date: [id number]""Electronically Signed By: BHAVIK CARNEY MD PAGE: [address] [place] [address] REC NUM: [id number] : 1985 Date: 02/13/2020 15:19 Chest 1 [...] BE LIMITED TO PATIENTS WHO ARE PAGE: [address] [place], [place] [address]LAN [address] NUM: [id number] : 1985 ON STABLE ORAL ANTICOAGULANT THERAPY. [...] x10E3/uL (1.4-7.0) LYMPHOCYTES ABSOLUTE 1.7 x10E3/uL PAGE: [address] [place] [address] , [place] [address] [facility] REC NUM: [id number] : 1985 (1.0-3.4) MONOCYTE ABSOLUTE 1.1 H [...] H (6.0-20.0) GLOBULIN 4.0 H g/dl PAGE: [address] [place] [address] , [place] [address] [facility] REC NUM: [id number] : 1985 (2.3-3.5) ANION GAP 13.0 mmol/l (7.0-16.0) OSMOLALITY (CALCULATED) 276 L mos/kg (280-300) A/G RATIO 1.0 (1.0-2.0) APTT: (JONH: 02/13/2020 14:34)( [facility] 02/13/2020 15:09) Final results Test Result Flag Units (Reference)PTT 42.7 H seconds (23.7-35.5) Lactic Acid: (JOHN: 02/13/2020 14:45)( MsgRcvd 02/13/2020 15:09) Final results Test Result Flag Units (Reference)LACTIC ACID 0.7 mmol/L (0.5-2.2) Troponin-I Quant: (JOHN: 02/13/2020 14:34)( [facility] 02/13/[facility] 15:14) Final results Test Result Flag Units (Reference)TROPONIN I <0.300 ng/ml Negative: < 0.300 Positive: >=0.300Results obtained using Jacky methodology. Please note thatserial determinations should be monitored using the same methodology. Type & Cross: (JOHN: 02/13/2020 15:30)( [facility] 02/13/2020 16:05) Final results Test Result Flag Units (Reference)TYPE + SCREEN PATIENT: TRINA CAICEDO LOC: MILLER BILL# : [id number] : 1985 SEX: M ORDERED BY: CARLOS HAMPTON ORDERED : 02/13/2020 14:26 PAGE: 9[facility] TIBURCIO [address] REC NUM: [id number] : 1985 COLLECTED: 02/13/2020 15:30 ORDER : [id number] RECEIVED : 02/13/2020 15:34 TEST NAME RESULT [...] GONZALEZ 02/13/2020 20:28) Addenda TIBURCIO Sarabia VisitID: [id number] Date: 02/13/2020 02/13/2020 14:25The patient was evaluated during the global COVID-19 pandemic, and that diagnosis was suspected/considered upon their initial presentation. Their PAGE: [address] [place] [address] [address] REC NUM: [id number] : 1985 evaluation, treatment and testing was consistent with current guidelines for patients who present with complaints or symptoms that may be related to COVID-19. (Electronically signed by BERTA GONZALEZ - 02/13/2020 14:25) Name Value Range Interpretation Code Description Data [facility] rce(s) Supporting Document(s) ID Date Data Source [id number] 02/13/2020 07:49:00 PM EST [facility] Name Value Range Interpretation Code Description Data [facility] rce(s) Supporting Document(s) LACTIC ACID 1.7 mmol/L 0.5-2.[address] [facility], Dept of [address] [address] * ID Date Data Source [id number] 02/13/2020 07:33:00 PM EST [facility] Name Value Range Interpretation Code Description Data Danielle rce(s) Supporting Document(s) URINE COLOR YELLOW YELLOW [facility] URINE APPEARANCE CLEAR CLEAR [facility] URINE SPECIFIC GRAVITY 1.025 1.003-1.035 [facility] URINE LEUKOCYTES NEGATIVE NEGATIVE [facility] URINE NITRITE NEGATIVE NEGATIVE [facility] URINE PH 5.0 5.0-8.0 [facility] URINE PROTEIN NEGATIVE mg/dl NEGATIVE [facility] URINE GLUCOSE NEGATIVE mg/dl NEGATIVE [facility] URINE KETONES NEGATIVE mg/dl NEGATIVE [facility] URINE UROBILINOGEN 0.2 mg/dl NORMAL OR <1 [facility] URINE BILIRUBIN NEGATIVE NEGATIVE [facility] URINE OCCULT BLOOD NEGATIVE NEGATIVE [facility] URINE MICROSCOPIC PERFORMED [facility] Microscopic performed . Elements observed are listed. If no elements are listed,the Microscopic is negative. WBC 2-5 hpf 0-5 [facility] BACTERIA 1+ hpf NEGATIVE A [facility] MUCOUS THREADS 1+ hpf NEGATIVE A [facility] ospital URINE C+S IF INDICATED NOT INDICATED [facility] R [facility], [facility] [place] [id number] * ID Date Data Source [id number] 02/13/2020 04:37:00 PM EST [facility] Name Value Range Interpretation Code Description Data Danielle rce(s) Supporting Document(s) SARS coronavirus 2 RNA [facility] This lab was ordered by [facility] (ER) and reported by [facility]. ID Date Data Source [id number] 02/13/2020 05:50:00 PM EST [facility] Name Value Range Interpretation Code Description Data [facility] rce(s) Supporting Document(s) SARS-COV-2 ZULY NEGATIVE NEGATIVE [facility] ospital Testing perfo rmed by nucleic acid [...] and/orepidemoilogical information. INFLUENZA A ZULY NEGATIVE NEGATIVE [facility] Testing perfo rmed by nucleic acid amplification. Please refer to SARS-COV-2 result comment for FDA approval and EUA information. INFLUENZA B ZULY NEGATIVE NEGATIVE [facility] Testing perfo rmed by nucleic acid amplification. Please refer to SARS-COV-2 result comment for FDA approval and EUA information. RSV ZULY NEGATIVE NEGATIVE [facility] Testing perfo rmed by nucleic acid amplification. Please refer to SARS-COV-2 result comment for FDA approval and EUA information. [facility], [place] [address] * ID Date Data Source [id number] 02/13/2020 04:05:00 PM [facility] PATIENT: TRINA CAICEDO LOC: MonishaNEAL BILL# : [id number] : 1985 SEX: MORDERED BY: CARLOS HAMPTON ORDERED : 02/13/2020 14:26 COLLECTED: 02/13/2020 15:30ORDER : [id number] RECEIVED : 02/13/2020 15:34 TEST NAME RESULTABO TYPE O 02/13/20 16:01 JSS1RH TYPE POS 02/13/20 16:01 [id number] SCREEN NEG 02/13/20 16:01 JSS1 - Name Value Range Interpretation Code Description Data Danielle rce(s) Supporting Document(s) ID Date Data Source [id number] 02/13/2020 03:09:00 PM [facility] Name Value Range Interpretation Code Description Data Danielle rce(s) Supporting Document(s) LACTIC ACID 0.7 mmol/L 0.5-2.2 [facility], [facility] [address] [address] * ID Date Data Source [id number] 02/18/2020 03:45:00 PM [facility] [employer] [address] [place] [address] r [facility] [address] [address] Site: RPERP Collected: 02/13/20 14:45BLOOD CULTURE #2 FINAL 02/18/20 15:45 R104/20/19 No growth after 5 days. Name Value Range Interpretation Code Description Data Adnielle rce(s) Supporting Document(s) ID Date Data Source [id number] 02/13/2020 03:22:00 PM [facility] Name Value Range Interpretation Code Description Data Danielle rce(s) Supporting Document(s) MANUAL DIFFERENTIAL PERFORMED [facility] [address] [address] * ID Date Data Source [id number] 02/13/2020 03:18:00 PM [facility] Name Value Range Interpretation Code Description Data Danielle rce(s) Supporting Document(s) DIFFERENTIAL SCAN DIFF REQUIRED A [facility], [facility] [address] [address] * ID Date Data Source [id number] 02/13/2020 03:22:00 PM [facility] Name Value Range Interpretation Code Description Data Danielle rce(s) Supporting Document(s) WBC 18.6 x10E3/uL 4.3-10.9 H [facility] spital RBC 3.95 x10E6/uL 4.70-6.20 L [facility] spital HEMOGLOBIN 9.9 g/dl 13.0-17.0 L [facility] HEMATOCRIT 31.4 % 39.0-50.0 L [facility] MCV 79.5 fl 82.0-98.0 L [facility] MCH 25.1 pg 27.5-33.5 L [facility] MCHC 31.5 g/dl 32.0-36.0 L [facility] al RDW 19.2 % 11.5-14.5 H [facility] al PLATELET COUNT 408 x10E3/uL 130-400 H [facility] (Slide estimate appears increased) MPV 9.4 fl 8.6-12.6 [facility] SEGMENTED NEUTROPHILS 84.0 % 44.0-74.0 H [facility] BAND 0.0 % 0.0-4.0 [facility] al LYMPHOCYTES 9.0 % 15.0-45.0 L [facility] MONOCYTES 6.0 % 2.0-13.0 [facility] al EOSINOPHILS 0.0 % 0.0-6.0 [facility] BASOPHILS 0.0 % 0.0-2.0 [facility] al METAMYELOCYTE 1.0 % A [facility] NEUTROPHIL ABSOLUTE 15.6 x10E3/uL 1.4-7.0 H [facility] LYMPHOCYTES ABSOLUTE 1.7 x10E3/uL 1.0-3.4 [facility] MONOCYTE ABSOLUTE 1.1 x10E3/uL 0.2-1.0 H [facility] EOSINOPHIL ABSOLUTE 0.0 x10E3/uL 0.0-0.5 [facility] BASOPHIL ABSOLUTE 0.0 x10E3/uL 0.0-0.2 [facility] ANISOCYTOSIS 1+ A [facility] p[facility] POIKILOCYTOSIS Slight [facility] ospital R [facility], [place] [address] * ID Date Data Source [id number] 02/13/2020 03:13:00 PM EST [facility] Name Value Range Interpretation Code Description Data Danielle rce(s) Supporting Document(s) TROPONIN I <0.300 ng/ml [facility] spital Negative: < 0.300 Positive: >=0.300Results obtained using Jacky methodology. Please note thatserial determinations should be monitored using the same methodology. R [facility], [facility] [address] [address] * ID Date Data Source [id number] 02/13/2020 03:13:00 PM [facility] Name Value Range Interpretation Code Description Data Danielle rce(s) Supporting Document(s) ESTIMATED GFR (CALCULATED) [facility] EGFR 122 [facility] >59 mL/min/1.73m2 EGFR, -SLOVENIAN 142 [facility] >59 mL/min/1.48p9Izze: Persistent reduction for 3 months or more in an eGFR <60 mL/min/1.73m2 defines CKD. Patients with eGFR values >=60 mL/min/1.73m2 may also have CKD if evidence of persistent proteinuria is present. Additional information may be found at [email or web address].org/professionals/kdoqi. R [facility], Dept of Path [address] [place] [address] * ID Date Data Source [id number] 02/13/2020 03:13:00 PM [facility] Name Value Range Interpretation Code Description Data Danielle rce(s) Supporting Document(s) GLUCOSE 99 mg/dl 70-100 [facility] BUN 24 mg/dl 5-21 H [facility] CREATININE, SERUM 0.70 mg/dl 0.60-1.30 [facility] SODIUM 136 mmol/l 136-146 [facility] POTASSIUM 4.5 mmol/l 3.5-5.3 [facility] CHLORIDE 101 mmol/l 96-109 [facility] CARBON DIOXIDE 22 mmol/l 20-32 [facility] ospital ALBUMIN 4.0 g/dl 3.5-5.0 [facility] PROTEIN, TOTAL 8.0 g/dl 6.4-8.2 [facility] ospital CALCIUM 9.4 mg/dl 8.4-10.4 [facility] ALKALINE PHOSPHATASE 332 U/l 10-118 H [facility] SGOT (AST) 115 U/l 3-40 H [facility] SGPT (ALT) 157 U/l 7-50 H [facility] BILIRUBIN, TOTAL 0.36 mg/dl 0.30-1.20 [facility] BUN/CREATININE RATIO 34.3 6.0-20.0 H [facility] GLOBULIN 4.0 g/dl 2.3-3.5 H [facility] ANION GAP 13.0 mmol/l 7.0-16.0 [facility] OSMOLALITY (CALCULATED) 276 mos/kg 280-300 L [facility] A/G RATIO 1.0 1.0-2.0 [facility] R [facility], Dept of [facility] [address] [place] [address] * ID Date Data Source [id number] 02/13/2020 03:09:00 PM [facility] Name Value Range Interpretation Code Description Data [facility] rce(s) Supporting Document(s) PTT 42.7 seconds 23.7-35.5 H [facility] R [facility], Dept of [facility] [address] [place] [address] * ID Date Data Source [id number] 02/13/2020 03:08:00 PM [facility] Name Value Range Interpretation Code Description Data Danielle rce(s) Supporting Document(s) PT (NO THERAPY/UNKNOWN) 13.7 seconds 11.7-14.5 [facility] INR 1.1 [facility] IN TERNATIONAL NORMALIZED RATIO(INR) INDICATIONS INR RANGE [...] AN UNACCEPTABLY HIGH RISK OF BLEEDING. R [facility], Dept of Path [address] [place] [address] * ID Date Data Source [id number] 02/18/2020 03:45:00 PM EST [facility] C [employer] [address] [place] [address] r [facility], DEPT OF PATH [address] [place] [address] Site: RPERP Collected: 02/13/20 14:34BLOOD CULTURE #1 FINAL 02/18/20 15:45 R104/20/19 No growth after 5 days. Name Value Range Interpretation Code Description Data Danielle rce(s) Supporting Document(s) ID Date Data Source [id number] 02/14/2020 11:44:00 AM EST [facility] Name Value Range Interpretation Code Description Data [facility] rce(s) Supporting Document(s) HEP B SURFACE ANTIGEN NON REACTIVE NON REACTIVE [facility] No active o r previous infection. Susceptible to infection.Testing Site Barrett:U= [facility] Department of Pathology,[address] [place] [address], Raleigh Hussein MD,[facility],Bridge Saw Operator HEP C ANTIBODY REACTIVE NON-REACTIVE [facility] Past or current Hepatitis C infection. Specimen forwarded to reference laboratory for quantitative HCV RNA testing.Testing Site Barrett:U= [facility] Department of Pathology,[address] [place] [address], Raleigh Hussein MD,[facility],Bridge Saw Operator HEP B CORE ANTIBODY IGM NON REACTIVE NON REACTIVE [facility] IgM antibod ies to HBc were not detected, does not exclude the possibility of exposure to HBV.Testing Site Barrett:U= [facility] Department of Pathology,[address] [place] [address], Raleigh Hussein MD,[facility],Bridge Saw Operator HEP A ANTIBODY IGM NON REACTIVE NON REACTIVE [facility] Testing Site Barrett:U= [facility] Department of Pathology,[address] [place] [address], Raleigh Hussein MD,[facility],Bridge Saw Operator ID Date Data Source [id number] 02/14/2020 05:24:52 AM [facility] ADDENDUM Vent Rate: 105 bpmRR Interval: 571 msecPR Interval: 141 msecQRS Duration: 79 msecQT Interval: 343 msecQTC Interval: 454 msecP-R-T [place]: 54 - 44 - 23 degreesSinus tachycardia...rate> 99Probable left atrial enlargement...P >50mS, <-0.10mV P4Btaqmrtadb QTCStudy Date: [id number] Signed By: CRUZ RONDON RUSSELLDate: 02/14/2020 05:24ORIG INALVent Rate: 105 bpmRR Interval: 571 msecPR Interval: 141 msecQRS Duration: 79 msecQT Interval: 343 msecQTC Interval: 454 msecP-R-T [place]: 54 - 44 - 23 degreesSinus tachycardia...rate> 99Probable left atrial enlargement...P >50mS, <-0.10mV H9Cmvlt Date: [id number] Signed By: REINALDO CARNEY MDWDate: 02/13/2020 15:19 Name Value Range Interpretation Code Description Data Danielle rce(s) Supporting Document(s) ID Date Data Source [id number] 02/13/2020 03:00:40 PM [facility] CLINICAL HISTORY:Shortness of breath. Pr esents from [...] rce(s) Supporting Document(s) ID Date Data Source [id number] 02/12/2020 03:00:00 PM EST [facility] Name Value Range Interpretation Code Description Data Danielle rce(s) Supporting Document(s) :PrThr:Pt:Respiratory:Ord:Probe.amp.tar [facility] This lab was ordered by [facility] in Lab Site and reported by [facility]. ID Date Data Source [id number] 02/14/2020 10:01:00 AM EST [facility] Name Value Range Interpretation Code Description Data Danielle rce(s) Supporting Document(s) CRSP SARS-CoV-2 (RT)-PCR Assay Negative Negative N ormal (applies to non-numeric results) [facility] The [place] (U.S[place] FDA has made th is test available under anemergency access mechanism called Emergency Use Authorization (EUA). TheEUA is supported by the alumnae secretary of Health and Human Services (HHSs)declaration that circumstances exist to justify the emergency use of invitro diagnostics (IVDs) for the detection and/or diagnosis of the virusthat causes COVID-19.Test performed at [facility] [place] [address]. First Test No [facility] Employed in healthcare No [facility] Symptomatic as defined by CDC No [facility] Hospitalized No [facility] lth System Resident in a congregate care setting Yes [facility] No [facility] Intensive Care [facility] The above 8 [place] [address] ID Date Data Source [id number] 02/12/2020 11:17:00 AM EST [facility] Name Value Range Interpretation Code Description Data Danielle rce(s) Supporting Document(s) AST 17 IU/L 15-37 Normal (applies to non-numeric resul ts) [facility] Sulfasalazine and sulfapyridine have the potential to falsely depressAspartate Aminotransferase results. Baseline values before medication administration are recommended. ALT 31 IU/L 16-61 Normal (applies to non-numeric resul ts) [facility] Sulfasalazine and sulfapyridine have the potential to falsely depressAlanine Aminotransferase results. Baseline values before medication administration are recommended. Alkaline Phosphatase 104 mIU/ml 50-136 Normal (applies to n on-numeric results) [facility] Total Bilirubin 0.20 mg/dl 0.20-1.00 Normal (applies to non-numeric results) [facility] Blood Urea Nitrogen 26 mg/dl 7-18 Above high normal [facility] Creatinine 0.76 mg/dl 0.67-1.17 Normal (applies to non-numeric resul ts) [facility] N-Acetylcysteine (NAC) and Metamizole hearn ve the potential to falselydepress Creatinine results. Baseline values before medication adminstration are recommended. Patients undergoing treatment with phenindione will have falselydepressed results. Patients on phenindione therapy should be tested with an alternativeCREA method.Toxic levels of acetaminophen may lead to falsely depressed results forpatient samples. Glomerular Filtration Rate >90.00 mL/min/1.73m2 [facility] GFR Reference Ranges:Normal Function or Mild Renal [...] of Health and the National KidneyFoundation. The [place] method used in calculating this result is traceable to IDVA standards. Glucose 74 mg/dl 70-110 Normal (applies to non-numeric resul ts) [facility] Sulfasalazine has the potential to false ly depress Glucose results. Sulfapyridine has the potential to falsely elevate Glucose results. Baseline values before medication administration are recommended. Calcium 8.7 mg/dl 8.5-10.1 Normal (applies to non-numeric resul ts) [facility] Total Protein 7.6 g/dl 6.4-8.2 Normal (applies to non-numeric re sults) [facility] Albumin 3.1 g/dl 3.4-5.0 Below low normal [facility] Sodium 139 mEq/L 136-145 Normal (applies to non-numeric resul ts) [facility] Potassium 4.7 mEq/L 3.5-5.1 Normal (applies to non-numeric resul ts) [facility] Chloride 107.0 mEq/L 98.0-107.0 Normal (applies to non-numeric resu lts) [facility] Carbon Dioxide 25.2 mMol/L 21.0-32.0 Normal (applies to non-numeric results) [facility] Anion Gap 11.5 7.0-15.0 Normal (applies to non-numeric resul ts) [facility] The above 16 analytes were performed by [facility] [id number] [place], [place] [id number], ,[place] [address] ID Date Data Source [id number] 02/12/2020 11:17:00 AM EST [facility] Name Value Range Interpretation Code Description Data Danielle rce(s) Supporting Document(s) C-Reactive Protein (Non-Cardiac) 230.00 mg/L 0.00-3.00 Above high no rmal [facility] The above 1 analytes were performed by [facility] [id number] [place] [id number], ,[place] [address] ID Date Data Source [id number] 02/12/2020 10:51:00 AM EST [facility] Name Value Range Interpretation Code Description Data Danielle rce(s) Supporting Document(s) WBC 21.79 x1000/ul 4.80-10.00 Above high normal [facility] RBC 3.67 x1Mil/ul 4.70-6.10 Below low normal [facility] Hemoglobin 9.3 g/dl 14.0-18.0 Below low normal [facility] Hematocrit 29.6 % 42.0-52.0 Below low normal [facility] MCV 80.7 fL 80.0-94.0 Normal (applies to non-numeric resul ts) [facility] MCH 25.3 pg 27.0-31.0 Below low normal [facility] MCHC 31.4 g/dl 32.2-37.0 Below low normal [facility] RDW 19.2 % 11.5-14.5 Above high normal [facility] Platelet Count 288 x1000/ul 130-400 Normal (applies to non-numeric results) [facility] MPV 9.9 fL 9.4-12.4 Normal (applies to non-numeric resul ts) [facility] Nucleated RBCs 0.00 % 0.00-0.20 Normal (applies to non-numeric r esults) [facility] Abs. Nucleated RBCs 0.00 x1000/ul 0.00-0.02 Normal (appl ies to non-numeric results) [facility] The above 12 analytes were performed by [facility] [id number] [facility], ,[place] [address] ID Date Data Source [id number] 02/12/2020 10:48:00 AM EST [facility] Name Value Range Interpretation Code Description Data Danielle rce(s) Supporting Document(s) Sedimentation Rate 70 mm/hr 0-15 Above high normal [facility] The above 1 analytes were performed by [facility] [id number] [place] [id number], ,[place] [address] Procedure Social History Code Duration Value Status Description Data Source(s ) Smoking 12/15/2020 12:00:00 AM EDT Never Smoker completed Never S moker eCW1 ([facility]) Smoking 12/15/2020 12:00:00 AM EDT Never Smoker completed Never S moker eCW1 ([facility]) Alcohol intake 11/18/2020 12:00:00 AM EDT Ex-drinker (finding) comp leted Ex- drinker (finding) [facility] Tobacco use and exposure 11/18/2020 12:00:00 AM EDT Never used co mpleted Never used [facility] Smoking 11/18/2020 12:00:00 AM EDT Former smoker completed Former smoker [facility] Smoking 08/12/2020 12:00:00 AM EDT Never Smoker completed Never S moker eCW1 ([facility]) Smoking 08/12/2020 12:00:00 AM EDT Never Smoker completed Never S moker eCW1 ([facility]) Smoking 08/12/2020 12:00:00 AM EDT Never Smoker completed Never S moker eCW1 ([facility]) Smoking 08/12/2020 12:00:00 AM EDT Never Smoker completed Never S moker eCW1 ([facility]) Smoking 08/12/2020 12:00:00 AM EDT Never Smoker completed Never S moker eCW1 ([facility]) Smoking 08/12/2020 12:00:00 AM EDT Never Smoker completed Never S moker eCW1 ([facility]) Smoking 08/12/2020 12:00:00 AM EDT Never Smoker completed Never S moker eCW1 ([facility]) Smoking 08/12/2020 12:00:00 AM EDT Never Smoker completed Never S moker eCW1 ([facility]) Smoking 08/12/2020 12:00:00 AM EDT Never Smoker completed Never S moker eCW1 ([facility]) Smoking 08/04/2020 12:00:00 AM EDT Never Smoker completed Never S moker eCW1 ([facility]) Smoking 08/04/2020 12:00:00 AM EDT Never Smoker completed Never S moker eCW1 ([facility]) Smoking 08/04/2020 12:00:00 AM EDT Never Smoker completed Never S moker eCW1 ([facility]) Smoking 05/20/2020 12:00:00 AM EST Never Smoker completed Never S moker eCW1 ([facility]) Smoking 05/20/2020 12:00:00 AM EST Never Smoker completed Never S moker eCW1 ([facility]) Smoking 05/20/2020 12:00:00 AM EST Never Smoker completed Never S moker eCW1 ([facility]) Smoking 04/30/2020 12:00:00 AM EST Never Smoker completed Never S moker eCW1 ([facility]) Smoking 04/30/2020 12:00:00 AM EST Never Smoker completed Never S moker eCW1 ([facility]) Smoking 04/30/2020 12:00:00 AM EST Never Smoker completed Never S moker eCW1 ([facility]) Smoking 04/22/2020 12:00:00 AM EST Never Smoker completed Never S moker eCW1 ([facility]) Vital Signs ID Date Data Source UNK Name Value Range Interpretation Code Description Data Source(s) Diastolic blood pressure 83 mm[Hg] 83 mm[Hg] [place] ([facility]) Body height 62 [in_i] 62 [in_i] [place] ([facility]) Body mass index (BMI) [Ratio] 27.8 kg/m2 27.8 k g/m2 CHAR[facility] ([facility]) Systolic blood pressure 131 mm[Hg] 131 mm[Hg] A [facility] ([facility]) Body weight 2432 [oz_av] 2432 [oz_av] [facility] ([facility]) Systolic blood pressure 112 mm[Hg] 112 mm[Hg] A [facility] ([facility]) Body mass index (BMI) [Ratio] 27.5 kg/m2 27.5 k g/m2 [facility] ([facility]) Diastolic blood pressure 82 mm[Hg] 82 mm[Hg] [facility] ([facility]) Body height 62 [in_i] 62 [in_i] [facility] ([facility]) Body weight 2404 [oz_av] 2404 [oz_av] [facility] ([facility]) Diastolic blood pressure 82 mm[Hg] 82 mm[Hg] [facility] ([facility]) Body height 62 [in_i] 62 [in_i] [facility] ([facility]) Body mass index (BMI) [Ratio] 27.5 kg/m2 27.5 k g/m2 [facility] ([facility]) Systolic blood pressure 112 mm[Hg] 112 mm[Hg] A THENA ([facility]) Body weight 2404 [oz_av] 2404 [oz_av] [facility] ([facility]) Diastolic blood pressure 82 mm[Hg] 82 mm[Hg] [facility] ([facility]) Body height 62 [in_i] 62 [in_i] [facility] ([facility]) Body mass index (BMI) [Ratio] 27.5 kg/m2 27.5 k g/m2 [facility] ([facility]) Systolic blood pressure 112 mm[Hg] 112 mm[Hg] A [facility] ([facility]) Body weight 2404 [oz_av] 2404 [oz_av] [facility] ([facility]) Diastolic blood pressure 82 mm[Hg] 82 mm[Hg] [facility] ([facility]) Body height 62 [in_i] 62 [in_i] [facility] ([facility]) Body mass index (BMI) [Ratio] 27.5 kg/m2 27.5 k g/m2 [facility] ([facility]) Systolic blood pressure 112 mm[Hg] 112 mm[Hg] A THENA ([facility]) Body weight 2404 [oz_av] 2404 [oz_av] [facility] ([facility]) Body height 62 [in_i] 62 [in_i] [facility] ([facility]) Diastolic blood pressure 70 mm[Hg] 70 mm[Hg] [facility] ([facility]) Body mass index (BMI) [Ratio] 27.9 kg/m2 27.9 k g/m2 [facility] ([facility]) Body weight 2440 [oz_av] 2440 [oz_av] [facility] ([facility]) Systolic blood pressure 107 mm[Hg] 107 mm[Hg] [facility] Systolic blood pressure 107 mm[Hg] 107 mm[Hg] [facility]) Body weight 2440 [oz_av] 2440 [oz_av] CHARAN ([facility]) Diastolic blood pressure 70 mm[Hg] 70 mm[Hg] [facility] ([facility]) Body height 62 [in_i] 62 [in_i] [facility] ([facility]) Body mass index (BMI) [Ratio] 27.9 kg/m2 27.9 k g/m2 [facility] ([facility]) Diastolic blood pressure 70 mm[Hg] 70 mm[Hg] [facility] ([facility]) Body height 62 [in_i] 62 [in_i] [facility] ([facility]) Body mass index (BMI) [Ratio] 27.9 kg/m2 27.9 k g/m2 [facility] ([facility]) Systolic blood pressure 107 mm[Hg] 107 mm[Hg] [facility]) Body weight 2440 [oz_av] 2440 [oz_av] CHARAN ([facility]) Diastolic blood pressure 70 mm[Hg] 70 mm[Hg] CHAR[facility] ([facility]) Body height 62 [in_i] 62 [in_i] [facility] ([facility]) Body mass index (BMI) [Ratio] 27.9 kg/m2 27.9 k g/m2 CHAR[facility] ([facility]) Systolic blood pressure 107 mm[Hg] 107 mm[Hg] A THENA ([facility]) Body weight 2440 [oz_av] 2440 [oz_av] CHAR[facility] ([facility]) Diastolic blood pressure 70 mm[Hg] 70 mm[Hg] CHAR[facility] ([facility]) Body height 62 [in_i] 62 [in_i] [facility] ([facility]) Body mass index (BMI) [Ratio] 27.9 kg/m2 27.9 k g/m2 CHAR[facility] ([facility]) Systolic blood pressure 107 mm[Hg] 107 mm[Hg] A [facility] ([facility]) Body weight 2440 [oz_av] 2440 [oz_av] CHARAN ([facility]) Diastolic blood pressure 87 mm[Hg] 87 mm[Hg] CHAR[facility] ([facility]) Body height 62 [in_i] 62 [in_i] [facility] ([facility]) Body mass index (BMI) [Ratio] 27.9 kg/m2 27.9 k g/m2 [facility] ([facility]) Body weight 2440 [oz_av] 2440 [oz_av] CHAR[facility] ([facility]) Systolic blood pressure 127 mm[Hg] 127 mm[Hg] [facility]) Body weight 2440 [oz_av] 2440 [oz_av] CHARAN ([facility]) Diastolic blood pressure 87 mm[Hg] 87 mm[Hg] CHAR[facility] ([facility]) Body height 62 [in_i] 62 [in_i] [facility] ([facility]) Body mass index (BMI) [Ratio] 27.9 kg/m2 27.9 k g/m2 [facility] ([facility]) Systolic blood pressure 127 mm[Hg] 127 mm[Hg] [facility]) Diastolic blood pressure 87 mm[Hg] 87 mm[Hg] CHARAN ([facility]) Body height 62 [in_i] 62 [in_i] [facility] ([facility]) Body mass index (BMI) [Ratio] 27.9 kg/m2 27.9 k g/m2 [facility] ([facility]) Systolic blood pressure 127 mm[Hg] 127 mm[Hg] A [facility] ([facility]) Body weight 2440 [oz_av] 2440 [oz_av] [facility] ([facility]) Diastolic blood pressure 87 mm[Hg] 87 mm[Hg] [facility] ([facility]) Body height 62 [in_i] 62 [in_i] [facility] ([facility]) Body mass index (BMI) [Ratio] 27.9 kg/m2 27.9 k g/m2 [facility] ([facility]) Systolic blood pressure 127 mm[Hg] 127 mm[Hg] A [facility] ([facility]) Body weight 2440 [oz_av] 2440 [oz_av] CHAR[facility] ([facility]) Diastolic blood pressure 87 mm[Hg] 87 mm[Hg] [facility] ([facility]) Body height 62 [in_i] 62 [in_i] [facility] ([facility]) Body mass index (BMI) [Ratio] 27.9 kg/m2 27.9 k g/m2 [facility] ([facility]) Systolic blood pressure 127 mm[Hg] 127 mm[Hg] A [facility] ([facility]) Body weight 2440 [oz_av] 2440 [oz_av] [facility] ([facility]) Diastolic blood pressure 87 mm[Hg] 87 mm[Hg] [facility] ([facility]) Body height 62 [in_i] 62 [in_i] [facility] ([facility]) Body mass index (BMI) [Ratio] 27.9 kg/m2 27.9 k g/m2 [facility] ([facility]) Systolic blood pressure 127 mm[Hg] 127 mm[Hg] A [facility] ([facility]) Body weight 2440 [oz_av] 2440 [oz_av] CHARAN ([facility]) Body weight 155 [lb_av] 155 [lb_av] eCW1 ([facility]) Body weight 70.31 kg 70.31 kg eCW1 ([facility]) Body height 53 [in_i] 53 [in_i] eCW1 ([facility]) Body mass index (BMI) [Ratio] 38.79 kg/m2 38.79 kg/m2 eCW1 ([facility]) Heart rate 112 /min 112 /min eCW1 ([facility]) Respiratory rate 16 /min 16 /min eCW1 ([facility]) Body temperature 97.4 [degF] 97.4 [degF] eCW1 ( [facility]) Systolic blood pressure 118 mm[Hg] 118 mm[Hg] e CW1 ([facility]) Diastolic blood pressure 74 mm[Hg] 74 mm[Hg] eCW1 ([facility]) Diastolic blood pressure 104 mm[Hg] 104 mm[Hg] CHARAN ([facility]) Diastolic blood pressure 86 mm[Hg] 86 mm[Hg] [facility] ([facility]) Body height 62 [in_i] 62 [in_i] [facility] ([facility]) Body mass index (BMI) [Ratio] 28 kg/m2 28 kg/ m2 [facility] ([facility]) Systolic blood pressure 122 mm[Hg] 122 mm[Hg] A [facility] ([facility]) Systolic blood pressure 154 mm[Hg] 154 mm[Hg] A [facility] ([facility]) Body weight 2450 [oz_av] 2450 [oz_av] CHARAN ([facility]) Diastolic blood pressure 86 mm[Hg] 86 mm[Hg] [facility] ([facility]) Diastolic blood pressure 104 mm[Hg] 104 mm[Hg] [facility] ([facility]) Systolic blood pressure 154 mm[Hg] 154 mm[Hg] A [facility] ([facility]) Body height 62 [in_i] 62 [in_i] [facility] ([facility]) Body mass index (BMI) [Ratio] 28 kg/m2 28 kg/ m2 [facility] ([facility]) Body weight 2450 [oz_av] 2450 [oz_av] [facility] ([facility]) Systolic blood pressure 122 mm[Hg] 122 mm[Hg] A [facility] ([facility]) Diastolic blood pressure 86 mm[Hg] 86 mm[Hg] [facility] ([facility]) Diastolic blood pressure 104 mm[Hg] 104 mm[Hg] [facility] ([facility]) Body height 62 [in_i] 62 [in_i] [facility] ([facility]) Body mass index (BMI) [Ratio] 28 kg/m2 28 kg/ m2 [facility] ([facility]) Systolic blood pressure 122 mm[Hg] 122 mm[Hg] A [facility] ([facility]) Systolic blood pressure 154 mm[Hg] 154 mm[Hg] A [facility] ([facility]) Body weight 2450 [oz_av] 2450 [oz_av] CHAR[facility] ([facility]) Body mass index (BMI) [Ratio] 28 kg/m2 28 kg/ m2 [facility] ([facility]) Systolic blood pressure 122 mm[Hg] 122 mm[Hg] A [facility] ([facility]) Systolic blood pressure 154 mm[Hg] 154 mm[Hg] A [facility] ([facility]) Body weight 2450 [oz_av] 2450 [oz_av] CHARAN ([facility]) Diastolic blood pressure 86 mm[Hg] 86 mm[Hg] CHAR[facility] ([facility]) Diastolic blood pressure 104 mm[Hg] 104 mm[Hg] [facility] ([facility]) Body height 62 [in_i] 62 [in_i] [facility] ([facility]) Body mass index (BMI) [Ratio] 28 kg/m2 28 kg/ m2 [facility] ([facility]) Diastolic blood pressure 86 mm[Hg] 86 mm[Hg] [facility] ([facility]) Diastolic blood pressure 104 mm[Hg] 104 mm[Hg] [facility] ([facility]) Body height 62 [in_i] 62 [in_i] [facility] ([facility]) Body mass index (BMI) [Ratio] 28 kg/m2 28 kg/ m2 [facility] ([facility]) Systolic blood pressure 122 mm[Hg] 122 mm[Hg] A [facility] ([facility]) Systolic blood pressure 154 mm[Hg] 154 mm[Hg] A [facility] ([facility]) Body weight 2450 [oz_av] 2450 [oz_av] CHAR[facility] ([facility]) Diastolic blood pressure 86 mm[Hg] 86 mm[Hg] CHAR[facility] ([facility]) Diastolic blood pressure 104 mm[Hg] 104 mm[Hg] [facility] ([facility]) Body height 62 [in_i] 62 [in_i] [facility] ([facility]) Systolic blood pressure 122 mm[Hg] 122 mm[Hg] A [facility] ([facility]) Systolic blood pressure 154 mm[Hg] 154 mm[Hg] A [facility] ([facility]) Body weight 2450 [oz_av] 2450 [oz_av] CHAR[facility] ([facility]) Diastolic blood pressure 86 mm[Hg] 86 mm[Hg] [facility] ([facility]) Diastolic blood pressure 104 mm[Hg] 104 mm[Hg] [facility] ([facility]) Body height 62 [in_i] 62 [in_i] [facility] ([facility]) Body mass index (BMI) [Ratio] 28 kg/m2 28 kg/ m2 [facility] ([facility]) Systolic blood pressure 122 mm[Hg] 122 mm[Hg] [facility]) Systolic blood pressure 154 mm[Hg] 154 mm[Hg] [facility]) Body weight 2450 [oz_av] 2450 [oz_av] CHAR[facility] ([facility]) Diastolic blood pressure 81 mm[Hg] 81 mm[Hg] CHAR[facility] ([facility]) Body height 62 [in_i] 62 [in_i] [facility] ([facility]) Body mass index (BMI) [Ratio] 26.8 kg/m2 26.8 k g/m2 [facility] ([facility]) Systolic blood pressure 111 mm[Hg] 111 mm[Hg] [facility]) Body weight 2344 [oz_av] 2344 [oz_av] CHARAN ([facility]) Diastolic blood pressure 81 mm[Hg] 81 mm[Hg] [facility] ([facility]) Body mass index (BMI) [Ratio] 26.8 kg/m2 26.8 k g/m2 [facility] ([facility]) Systolic blood pressure 111 mm[Hg] 111 mm[Hg] A THE[facility] ([facility]) Body weight 2344 [oz_av] 2344 [oz_av] CHAR[facility] ([facility]) Body height 62 [in_i] 62 [in_i] [facility] ([facility]) Diastolic blood pressure 81 mm[Hg] 81 mm[Hg] [facility] ([facility]) Body height 62 [in_i] 62 [in_i] [facility] ([facility]) Body mass index (BMI) [Ratio] 26.8 kg/m2 26.8 k g/m2 [facility] ([facility]) Systolic blood pressure 111 mm[Hg] 111 mm[Hg] [facility]) Body weight 2344 [oz_av] 2344 [oz_av] CHAR[facility] ([facility]) Diastolic blood pressure 81 mm[Hg] 81 mm[Hg] [facility] ([facility]) Body height 62 [in_i] 62 [in_i] [facility] ([facility]) Body mass index (BMI) [Ratio] 26.8 kg/m2 26.8 k g/m2 [facility] ([facility]) Systolic blood pressure 111 mm[Hg] 111 mm[Hg] [facility]) Body weight 2344 [oz_av] 2344 [oz_av] [facility] ([facility]) Diastolic blood pressure 81 mm[Hg] 81 mm[Hg] [facility] ([facility]) Body height 62 [in_i] 62 [in_i] [facility] ([facility]) Body mass index (BMI) [Ratio] 26.8 kg/m2 26.8 k g/m2 [facility] ([facility]) Systolic blood pressure 111 mm[Hg] 111 mm[Hg] A [facility] ([facility]) Body weight 2344 [oz_av] 2344 [oz_av] [facility] ([facility]) Diastolic blood pressure 81 mm[Hg] 81 mm[Hg] [facility] ([facility]) Body height 62 [in_i] 62 [in_i] [facility] ([facility]) Body mass index (BMI) [Ratio] 26.8 kg/m2 26.8 k g/m2 [facility] ([facility]) Systolic blood pressure 111 mm[Hg] 111 mm[Hg] A [facility] ([facility]) Body weight 2344 [oz_av] 2344 [oz_av] [facility] ([facility]) Diastolic blood pressure 81 mm[Hg] 81 mm[Hg] [facility] ([facility]) Body height 62 [in_i] 62 [in_i] [facility] ([facility]) Body mass index (BMI) [Ratio] 26.8 kg/m2 26.8 k g/m2 [facility] ([facility]) Systolic blood pressure 111 mm[Hg] 111 mm[Hg] [facility]) Body weight 2344 [oz_av] 2344 [oz_av] CHAR[facility] ([facility]) Diastolic blood pressure 81 mm[Hg] 81 mm[Hg] [facility] ([facility]) Body height 62 [in_i] 62 [in_i] [facility] ([facility]) Body mass index (BMI) [Ratio] 26.8 kg/m2 26.8 k g/m2 [facility] ([facility]) Systolic blood pressure 111 mm[Hg] 111 mm[Hg] [facility]) Body weight 2344 [oz_av] 2344 [oz_av] CHAR[facility] ([facility]) Diastolic blood pressure 82 mm[Hg] 82 mm[Hg] [facility] ([facility]) Body height 62 [in_i] 62 [in_i] [facility] ([facility]) Body mass index (BMI) [Ratio] 26.4 kg/m2 26.4 k g/m2 [facility] ([facility]) Systolic blood pressure 118 mm[Hg] 118 mm[Hg] A [facility] ([facility]) Body weight 2312 [oz_av] 2312 [oz_av] CHAR[facility] ([facility]) Body height 62 [in_i] 62 [in_i] [facility] ([facility]) Body weight 2312 [oz_av] 2312 [oz_av] [facility] ([facility]) Body mass index (BMI) [Ratio] 26.4 kg/m2 26.4 k g/m2 [facility] ([facility]) Systolic blood pressure 118 mm[Hg] 118 mm[Hg] [facility]) Diastolic blood pressure 82 mm[Hg] 82 mm[Hg] CHAR[facility] ([facility]) Diastolic blood pressure 82 mm[Hg] 82 mm[Hg] [facility] ([facility]) Body height 62 [in_i] 62 [in_i] [facility] ([facility]) Systolic blood pressure 118 mm[Hg] 118 mm[Hg] [facility]) Body weight 2312 [oz_av] 2312 [oz_av] [facility] ([facility]) Diastolic blood pressure 82 mm[Hg] 82 mm[Hg] [facility] ([facility]) Body height 62 [in_i] 62 [in_i] [facility] ([facility]) Body mass index (BMI) [Ratio] 26.4 kg/m2 26.4 k g/m2 [facility] ([facility]) Systolic blood pressure 118 mm[Hg] 118 mm[Hg] [facility]) Body weight 2312 [oz_av] 2312 [oz_av] [facility] ([facility]) Body mass index (BMI) [Ratio] 26.4 kg/m2 26.4 k g/m2 [facility] ([facility]) Diastolic blood pressure 82 mm[Hg] 82 mm[Hg] [facility] ([facility]) Body height 62 [in_i] 62 [in_i] [facility] ([facility]) Body mass index (BMI) [Ratio] 26.4 kg/m2 26.4 k g/m2 [facility] ([facility]) Systolic blood pressure 118 mm[Hg] 118 mm[Hg] A [facility] ([facility]) Body weight 2312 [oz_av] 2312 [oz_av] [facility] ([facility]) Diastolic blood pressure 82 mm[Hg] 82 mm[Hg] [facility] ([facility]) Body height 62 [in_i] 62 [in_i] [facility] ([facility]) Body mass index (BMI) [Ratio] 26.4 kg/m2 26.4 k g/m2 [facility] ([facility]) Systolic blood pressure 118 mm[Hg] 118 mm[Hg] A [facility] ([facility]) Body weight 2312 [oz_av] 2312 [oz_av] [facility] ([facility]) Diastolic blood pressure 82 mm[Hg] 82 mm[Hg] [facility] ([facility]) Body height 62 [in_i] 62 [in_i] [facility] ([facility]) Body mass index (BMI) [Ratio] 26.4 kg/m2 26.4 k g/m2 [facility] ([facility]) Systolic blood pressure 118 mm[Hg] 118 mm[Hg] A [facility] ([facility]) Body weight 2312 [oz_av] 2312 [oz_av] [facility] ([facility]) Diastolic blood pressure 82 mm[Hg] 82 mm[Hg] [facility] ([facility]) Body height 62 [in_i] 62 [in_i] [facility] ([facility]) Body mass index (BMI) [Ratio] 26.4 kg/m2 26.4 k g/m2 [facility] ([facility]) Systolic blood pressure 118 mm[Hg] 118 mm[Hg] A [facility] ([facility]) Body weight 2312 [oz_av] 2312 [oz_av] [facility] ([facility]) Systolic blood pressure 114 mm[Hg] 114 mm[Hg] [facility] Diastolic blood pressure 82 mm[Hg] 82 mm[Hg] [facility] Heart rate 112 /min 112 /min [facility] Respiratory rate 8 /min 8 /min [facility] Body height 157.5 cm 157.5 cm [facility] Body weight 68.493 kg 68.493 kg [facility] Body mass index (BMI) [Ratio] 27.62 kg/m2 27.62 kg/m2 [facility] Oxygen saturation in Arterial blood by Pulse oximetry 96 % 96 % [facility] Body weight 147.12 [lb_av] 147.12 [lb_av] eCW1 ([facility]) Body height 53 [in_i] 53 [in_i] eCW1 ([facility]) Body mass index (BMI) [Ratio] 36.82 kg/m2 36.82 kg/m2 [facility] ([facility]) Heart rate 120 /min 120 /min W1 ([facility]) Respiratory rate 18 /min 18 /min [facility] ([facility]) Body temperature 97.3 [degF] 97.3 [degF] [facility] ( [facility]) Systolic blood pressure 122 mm[Hg] 122 mm[Hg] e CW1 ([facility]) Diastolic blood pressure 80 mm[Hg] 80 mm[Hg] eCW1 ([facility]) Body weight 152 [lb_av] 152 [lb_av] eCW1 ([facility]) Body height 53 [in_i] 53 [in_i] eCW1 ([facility]) Body mass index (BMI) [Ratio] 38.04 kg/m2 38.04 kg/m2 eCW1 ([facility]) Heart rate 110 /min 110 /min eCW1 ([facility]) Respiratory rate 18 /min 18 /min eCW1 ([facility]) Body temperature 99.1 [degF] 99.1 [degF] eCW1 ( [facility]) Systolic blood pressure 154 mm[Hg] 154 mm[Hg] e CW1 ([facility]) Diastolic blood pressure 102 mm[Hg] 102 mm[Hg] eCW1 ([facility]) Body weight 150 [lb_av] 150 [lb_av] eCW1 ([facility]) Body height 53 [in_i] 53 [in_i] eCW1 ([facility]) Body mass index (BMI) [Ratio] 37.54 kg/m2 37.54 kg/m2 eCW1 ([facility]) Heart rate 122 /min 122 /min eCW1 ([facility]) Respiratory rate 18 /min 18 /min eCW1 ([facility]) Body temperature 98.6 [degF] 98.6 [degF] eCW1 ( [facility]) Systolic blood pressure 120 mm[Hg] 120 mm[Hg] e CW1 ([facility]) Diastolic blood pressure 62 mm[Hg] 62 mm[Hg] eCW1 ([facility]) Body weight 149 [lb_av] 149 [lb_av] eCW1 ([facility]) Body height 53 [in_i] 53 [in_i] eCW1 ([facility]) Body mass index (BMI) [Ratio] 37.29 kg/m2 37.29 kg/m2 eCW1 ([facility]) Heart rate 136 /min 136 /min eCW1 ([facility]) Respiratory rate 18 /min 18 /min eCW1 ([facility]) Body temperature 98.2 [degF] 98.2 [degF] eCW1 ( [facility]) Systolic blood pressure 120 mm[Hg] 120 mm[Hg] e CW1 ([facility]) Diastolic blood pressure 80 mm[Hg] 80 mm[Hg] eCW1 ([facility]) ID Date Data Source [id number] 05/06/2020 10:07:12 AM EST [facility] Name Value Range Interpretation Code Description Data Source(s) WEIGHT RECORDED 59 KG 59 KG [facility] WEIGHT RECORDED 59.8 KG 59.8 KG [facility] WEIGHT RECORDED 89.2 KG 89.2 KG [facility] WEIGHT RECORDED 61.1 KG 61.1 KG [facility] WEIGHT RECORDED 62 KG 62 KG [facility] WEIGHT RECORDED 64.9 KG 64.9 KG [facility] WEIGHT RECORDED 60.1 KG 60.1 KG [facility] Height 158.5 CM 158.5 CM [facility] WEIGHT RECORDED 58.9 KG 58.9 KG [facility] Height 170.18 CM 170.18 CM [facility] Patient Treatment Plan of Care Planned Activity Planned Date Details Description Data Source (s) Acetaminophen 500 MG Oral Tablet 11/11/2020 12:00:00 AM EDT [facility] Cyclobenzaprine hydrochloride 10 MG Oral Tablet 11/11/2020 12:00:00 AM EDT [facility] apixaban 5 MG Oral Tablet [Eliquis] 11/11/2020 12:00:00 AM EDT [facility] gabapentin 300 MG Oral Capsule 11/11/2020 12:00:00 AM EDT [facility] celecoxib 200 MG Oral Capsule 09/30/2020 12:00:00 AM EDT [facility] Trazodone Hydrochloride 50 MG Oral Tablet 05/16/2020 12:00:00 AM ES T eCW1 ([facility]) Epclusa 400-100 MG 04/22/2020 12:00:00 AM EST eCW1 ([facility]) Acetaminophen 500 MG Oral Tablet 04/22/2020 12:00:00 AM EST eCW1 ([facility]) Trazodone Hydrochloride 50 MG Oral Tablet CHARAN ([facility]) Buprenorphine 8 MG / Naloxone 2 MG Oral Strip [Suboxone] CHARAN ([facility]) sofosbuvir 400 mg-velpatasvir 100 mg tablet TAKE ONE T ABLET BY MOUTH EVERY DAY CHARAN ([facility]) apixaban 5 MG Oral Tablet [Eliquis] CHARAN ([facility]) celecoxib 200 MG Oral Capsule CHARAN ([facility]) Trazodone Hydrochloride 50 MG Oral Tablet CHARAN ([facility]) Buprenorphine 8 MG / Naloxone 2 MG Oral Strip [Suboxone] CHARAN ([facility]) sofosbuvir 400 mg-velpatasvir 100 mg tablet TAKE ONE T ABLET BY MOUTH EVERY DAY CHARAN ([facility]) apixaban 5 MG Oral Tablet [Eliquis] CHARAN ([facility]) celecoxib 200 MG Oral Capsule CHARAN ([facility]) Trazodone Hydrochloride 50 MG Oral Tablet CHARAN ([facility]) Buprenorphine 8 MG / Naloxone 2 MG Oral Strip [Suboxone] CHARAN ([facility]) sofosbuvir 400 mg-velpatasvir 100 mg tablet TAKE ONE T ABLET BY MOUTH EVERY DAY CHARAN ([facility]) apixaban 5 MG Oral Tablet [Eliquis] CHARAN ([facility]) celecoxib 200 MG Oral Capsule CHARAN ([facility]) Trazodone Hydrochloride 50 MG Oral Tablet CHARAN ([facility]) Buprenorphine 8 MG / Naloxone 2 MG Oral Strip [Suboxone] CHARAN ([facility]) sofosbuvir 400 mg-velpatasvir 100 mg tablet TAKE ONE T ABLET BY MOUTH EVERY DAY CHARAN ([facility]) apixaban 5 MG Oral Tablet [Eliquis] CHARAN ([facility]) celecoxib 200 MG Oral Capsule CHARAN ([facility]) Trazodone Hydrochloride 50 MG Oral Tablet CHARAN ([facility]) sofosbuvir 400 mg-velpatasvir 100 mg tablet TAKE ONE T ABLET BY MOUTH EVERY DAY CHARAN ([facility]) apixaban 5 MG Oral Tablet [Eliquis] CHARAN ([facility]) celecoxib 200 MG Oral Capsule CHARAN ([facility]) Trazodone Hydrochloride 50 MG Oral Tablet CHARAN ([facility]) sofosbuvir 400 mg-velpatasvir 100 mg tablet TAKE ONE T ABLET BY MOUTH EVERY DAY CHARAN ([facility]) apixaban 5 MG Oral Tablet [Eliquis] CHARAN ([facility]) celecoxib 200 MG Oral Capsule CHARAN ([facility]) Trazodone Hydrochloride 50 MG Oral Tablet CHARAN ([facility]) celecoxib 200 MG Oral Capsule CHARAN ([facility]) Trazodone Hydrochloride 50 MG Oral Tablet CHARAN ([facility]) celecoxib 200 MG Oral Capsule CHARAN ([facility])
== END 2021-01-23 00:51 | disposition left against medical advice (07) ==
LOC: M ED 20:24
DX: Z53.21 Procedure and treatment not carried out due to patient leaving prior to being seen by health care provider (principal)

== ENCOUNTER → 2021-03-31 | Outpatient (CLI) | payer OTHER ==
[~2021-03-31] MED LIST changes: +OMEP-173 PO; -OMEP-218 PO
[2021-03-31 15:30] LABS: BASO # 0.1 10^3/uL (0.0-0.2); BASO % 0.6 % (0.0-1.0); EOS # 0.1 10^3/uL (0.0-0.5); EOS % 1.6 % (0.0-3.0); HEMATOCRIT 46.7 % (42.0-52.0); HEMOGLOBIN 14.2 g/dl (13.5-17.5); LYMPH # 2.1 10^3/uL (1.5-5.0); LYMPH % 24.8 % (24.0-44.0); MEAN CORPUSCULAR HGB CONC 30.4 g/dl (32.0-36.5); MEAN CORPUSCULAR VOLUME 88.8 fl (80.0-96.0); MONO # 0.8 10^3/uL (0.0-0.8); MONO % 9.3 % (2.0-8.0); NEUTROPHILS # 5.5 10^3/uL (1.5-8.5); NEUTROPHILS % 63.5 % (36.0-66.0); PLATELET COUNT, AUTOMATED 381 10^3/uL (150-450); RED BLOOD COUNT 5.26 10^6/uL (4.30-6.10); WHITE BLOOD COUNT 8.6 10^3/uL (4.0-10.0)
[2021-03-31 16:06] LABS: ALBUMIN 3.9 GM/DL (3.2-5.2); ALT/SGPT 20 U/L (12-78); BILIRUBIN,TOTAL 0.1 MG/DL (0.2-1.0); BLOOD UREA NITROGEN 22 MG/DL (7-18); CALCIUM LEVEL 9.1 MG/DL (8.5-10.1); CARBON DIOXIDE LEVEL 27 MEQ/L (21-32); CHLORIDE LEVEL 105 MEQ/L (98-107); CHOLESTEROL LEVEL 182 MG/DL (<200); CHOLESTEROL RISK RATIO 4.232 (<5); CREATININE FOR GFR 0.98 MG/DL (0.70-1.30); GLOMERULAR FILTRATION RATE > 60.0 (>60); GLUCOSE, FASTING 81 MG/DL (70-100); HDL CHOLESTEROL 43 MG/DL (>40); LDL CHOLESTEROL 93 MG/DL (<100); NON-HDL-C 139 MG/DL; POTASSIUM SERUM 4.7 MEQ/L (3.5-5.1); SODIUM LEVEL 139 MEQ/L (136-145); TOTAL PROTEIN 7.9 GM/DL (6.4-8.2); TRIGLYCERIDES LEVEL 231 MG/DL (<150)
[2021-03-31 16:54] LABS: HIV 1&2 SCREEN CENTAUR NEGATIVE (NEGATIVE)
[2021-03-31 17:27] LABS: HEPATITIS C VIRUS ABY INDEX > 11.0 INDEX (<0.8)
== END ==
LOC: M PLAIMG 11:20
PROVIDERS: ATTEND Nurse Practitioner Family
DX: R07.89 Other chest pain (principal); Z11.3 Encounter for screening for infections with a predominantly sexual mode of transmission; F19.11 Other psychoactive substance abuse, in remission; I10 Essential (primary) hypertension; Z13.220 Encounter for screening for lipoid disorders

== ENCOUNTER → 2021-04-20 | Outpatient (CLI) | payer MEDICAID | LOC: M OUTALCOH 09:20 | PROVIDERS: ATTEND Psychiatry & Neurology Psychiatry | DX: F11.20 Opioid dependence, uncomplicated (principal) ==

== ENCOUNTER 2021-05-07 09:00 | Outpatient (RCR) | payer MEDICAID | END 2021-05-11 | LOC: M OUTALCOH 09:00 | PROVIDERS: ATTEND Psychiatry & Neurology Psychiatry | DX: F11.20 Opioid dependence, uncomplicated (principal) ==

== ENCOUNTER → 2021-06-11 | Outpatient (RCR) | payer MEDICAID | LOC: M OUTALCOH 05-12 16:00 | PROVIDERS: ATTEND Psychiatry & Neurology Psychiatry | DX: F11.20 Opioid dependence, uncomplicated (principal) ==

== ENCOUNTER 2021-07-10 08:00 | Outpatient (RCR) | payer MEDICAID | END 2021-07-11 | LOC: M OUTALCOH 08:00 | PROVIDERS: ATTEND Psychiatry & Neurology Psychiatry | DX: F11.20 Opioid dependence, uncomplicated (principal) ==

== ENCOUNTER → 2021-07-10 | Outpatient (CLI) | payer OTHER | LOC: M PLAIMG 06:57 | PROVIDERS: ATTEND Family Medicine Addiction Medicine | DX: G89.4 Chronic pain syndrome (principal) ==

== ENCOUNTER 2021-08-05 15:00 | Outpatient (RCR) | payer MEDICAID | END 2021-08-11 | LOC: M OUTALCOH 15:00 | PROVIDERS: ATTEND Psychiatry & Neurology Psychiatry | DX: F11.20 Opioid dependence, uncomplicated (principal) ==

== ENCOUNTER 2021-08-26 18:06 | Emergency (ER) | payer MEDICAID, OTHER ==
[~2021-08-26] VITALS: Ht 157.5 cm; Wt 64.1 kg
[2021-08-26] MEDS ORDERED: CELE1CAP9 (18:12)
[2021-08-26] MEDS ORDERED: CYCL-707 (18:12)
[2021-08-26] MEDS ORDERED: SUBO8MIS (18:12)
[2021-08-26] MEDS ORDERED: SUCRALFATE 1 GM TAB PO ONE (19:50)
[2021-08-26] MEDS ORDERED: GI COCKTAIL 50ML BTL(HYOSCYAMINE/MAALOX/LIDOCAINE VISCOUS)(1:3:1) PO ONE (19:50)
[2021-08-26] MEDS ORDERED: METOCLOPRAMIDE INJ 10MG/2ML VIAL (J2765 PER 1) IV ONE (19:50)
[2021-08-26] MEDS ORDERED: PANTOPRAZOLE 40MG VIAL IV ONE (19:50)
[2021-08-26 20:33] LABS: BASO % 0.4 % (0.0-1.0); EOS # 0.2 10^3/uL (0.0-0.5); EOS % 3.5 % (0.0-3.0); HEMATOCRIT 41.2 % (42.0-52.0); HEMOGLOBIN 13.4 g/dl (13.5-17.5); LYMPH # 1.9 10^3/uL (1.5-5.0); MEAN CORPUSCULAR HEMOGLOBIN 27.8 pg (27.0-33.0); MEAN CORPUSCULAR HGB CONC 32.5 g/dl (32.0-36.5); MEAN CORPUSCULAR VOLUME 85.5 fl (80.0-96.0); MONO # 0.6 10^3/uL (0.0-0.8); MONO % 12.2 % (2.0-8.0); NEUTROPHILS # 1.9 10^3/uL (1.5-8.5); NEUTROPHILS % 41.9 % (36.0-66.0); PLATELET COUNT, AUTOMATED 300 10^3/uL (150-450); RED BLOOD COUNT 4.82 10^6/uL (4.30-6.10); WHITE BLOOD COUNT 4.6 10^3/uL (4.0-10.0)
[2021-08-26 21:00] LABS: ALBUMIN 3.7 GM/DL (3.2-5.2); ALT/SGPT 26 U/L (12-78); BILIRUBIN,DIRECT < 0.1 MG/DL (0.0-0.2); BILIRUBIN,TOTAL 0.2 MG/DL (0.2-1.0); LIPASE 65 U/L (73-393); TOTAL PROTEIN 7.6 GM/DL (6.4-8.2)
[2021-08-26] MEDS ORDERED: OMEP40CA4 PO (22:15)
[2021-08-26] MEDS ORDERED: REGL5TAB2 PO (22:16)
[2021-08-26] MEDS ORDERED: SUCR1SS PO (22:16)
[2021-08-26 22:23] VITALS: BP 131/64
== END 2021-08-26 22:28 | disposition home or self-care (01) ==
LOC: M ED 18:06
DX: K29.70 Gastritis, unspecified, without bleeding (principal); R10.13 Epigastric pain; K21.9 Gastro-esophageal reflux disease without esophagitis; Z79.899 Other long term (current) drug therapy
CPT/HCPCS: 76705; 80047; 80076; 83690; 85025; 96374; 96375; 99284; C9113; J2765